=== PATIENT | female | born 1960 | race Two or more races ===

== ENCOUNTER 2020-01-23 15:20 | Outpatient (REF) | payer MEDICAID, SELFPAY ==
[2020-01-23 16:13] LABS: Hematocrit 41.2 % (37-47); Hemoglobin 13.2 g/dl (12.0-16.0); Mean Corpuscular Hemoglobin 27.4 pg (27.0-33.0); Mean Corpuscular Volume 85.5 fL (80-98); Mean Platelet Volume 9.7 fL (9.4-12.3); Platelet Count 177 X10*3/uL (160-400); Red Blood Count 4.82 X10*6/uL (4.20-5.50); Red Cell Distribution Width 13.6 % (11.0-16.0); White Blood Count 7.5 X10*3/uL (4.8-10.8)
[2020-01-23 16:40] LABS: Alanine Aminotransferase 13 U/L (0-31); Albumin Level 3.9 g/dL (3.5-5.0); Alkaline Phosphatase 153 U/L (39-117); Aspartate Amino Transferase 14 U/L (5-31); Bilirubin Direct < 0.2 mg/dL (0.0-0.5); Bilirubin Total 0.2 mg/dL (0.0-1.0); Blood Urea Nitrogen 11 mg/dL (9-16); Estimated Glomerular Filt Rate > 60; Lipase 33 U/L (8-78); Total Protein 7.3 g/dL (6.5-8.0)
== END 2020-01-23 15:21 | disposition home or self-care (01) ==
LOC: HO.LAB 15:20
PROVIDERS: PCP Internal Medicine; Visit Provider Internal Medicine Gastroenterology
DX: R10.32 Left lower quadrant pain (principal)
CPT/HCPCS: 36415; 80076; 82565; 83690; 84520; 85027

== ENCOUNTER → 2020-04-08 08:46 | Outpatient (BNVA) | payer MEDICAID, SELFPAY | PROVIDERS: PCP Internal Medicine; Visit Provider Internal Medicine | DX: J45.909 Unspecified asthma, uncomplicated (principal); G47.33 Obstructive sleep apnea (adult) (pediatric); Z99.89 Dependence on other enabling machines and devices | CPT/HCPCS: 99212 ==

== ENCOUNTER 2020-04-15 10:16 | Outpatient (REF) | payer MEDICAID, SELFPAY ==
[2020-04-15 11:56] LABS: Blood Urea Nitrogen 12 mg/dL (9-16); Estimated Glomerular Filt Rate > 60
== END 2020-04-15 10:17 | disposition home or self-care (01) ==
LOC: HO.LAB 10:16
PROVIDERS: PCP Internal Medicine; Visit Provider Internal Medicine Gastroenterology
DX: R10.32 Left lower quadrant pain (principal)
CPT/HCPCS: 36415; 82565; 84520

== ENCOUNTER 2020-04-20 08:08 | Outpatient (REF) | payer MEDICAID, SELFPAY ==
--- NOTE | 2020-04-20 08:11 | CT_ITS ---
EXAMINATION: CT ABDOMEN AND PELVIS WITH CONTRAST CLINICAL INFORMATION: Left lower quadrant pain. COMPARISON: CT abdomen pelvis contrast 02/21/2017. TECHNIQUE: Multidetector volumetric images were obtained from the superior aspect of the liver through the pubic symphysis following administration and reviewed mL of Omnipaque 350 intravenous contrast. Sagittal and coronal reformatted images were obtained on the technologist's workstation. Oral contrast: No. This CT examination was performed using dose optimization techniques as appropriate, variously including the following: *Automated exposure control *Adjustment of mA and/or kV according to patient size (this includes techniques or standardized protocols for targeted exams where dose is matched to indication/reason for exam; i.e. extremities or head) *Use of iterative reconstruction technique DLP: 747 mGy-cm. FINDINGS: LUNG BASES: There is platelike atelectasis right middle lobe and left lower lobe. Mild ground-glass opacity seen in the right lung base . LIVER, GALLBLADDER, AND BILIARY TREE: The liver is normal in size, shape, and attenuation. No focal hepatic lesion or biliary ductal dilatation is present. The gallbladder has been surgically removed. PANCREAS: Unremarkable. SPLEEN: Unremarkable. ADRENAL GLANDS: Unremarkable. KIDNEYS AND URETERS: The kidneys are normal in size, shape, and attenuation. No hydronephrosis, hydroureter, or calculi seen. No perinephric stranding. BLADDER: Unremarkable. GASTROINTESTINAL TRACT: There is scattered stool and gas seen throughout the colon without distention. The small bowel loops are normal caliber. Appendix is normal caliber. There is no free air or free fluid seen. ABDOMINAL WALL: Small umbilical hernia containing fat. Mild diastases of the rectus. LYMPH NODES: A small shotty lymph nodes in the retroperitoneum. The largest 9 mm lymph node upper abdomen image 24/3. VASCULAR: Mild atherosclerotic changes of abdominal aorta without aneurysmal dilatation. PELVIC VISCERA: The uterus is midline. No focal lesion seen. No free fluid or free air seen. OSSEOUS STRUCTURES: No lytic or sclerotic process seen. CT/CT abdomen pelvis w con IMPRESSION: No acute intra-abdominal process seen. Mild constipation. Small umbilical hernia with mild diastasis of the rectus, stable.
[2020-04-20] MEDS: iohexoL 350 MG/ML 100 ML INFUS..BTL IV (09:28)
== END 2020-04-20 08:09 | disposition home or self-care (01) ==
LOC: HO.CT 08:08
PROVIDERS: Visit Provider Internal Medicine Gastroenterology
DX: R10.32 Left lower quadrant pain (principal)
CPT/HCPCS: 74177; Q9967

== ENCOUNTER 2020-05-18 09:43 | Outpatient (REF) | payer MEDICAID, SELFPAY ==
--- NOTE | ~2020-05-18 | MM_ITS ---
EXAMINATION: MM SCREENING DIGITAL BREAST TOMOSYNTHESIS, BILATERAL CLINICAL INFORMATION: Screening. Asymptomatic. The lifetime risk of breast cancer based on the Tyrer-Cuzick Model is 12%. COMPARISON: Mammography: 02/12/2019, 01/29/2018, 01/05/2017 TECHNIQUE: Digital breast tomosynthesis is performed in both the craniocaudal and mediolateral oblique views along with computer-aided detection (CAD). Synthesized 2D images are generated from the tomosynthesis. Additional left MLO view is provided. FINDINGS: The breasts are heterogeneously dense, which may obscure small masses (ACR BI-RADS breast composition Category c). There are no significant masses, abnormal calcifications, or other abnormalities. Parenchymal pattern is similar to prior studies. No significant changes. MM/MM tomosynthesis screening BI IMPRESSION: No mammographic evidence of malignancy. ASSESSMENT: BI-RADS 1: Negative RECOMMENDATION: Routine annual mammography screening. This patient's information was entered into a reminder system with a target due date for their next mammogram.
== END 2020-05-18 09:44 | disposition home or self-care (01) ==
LOC: HO.MAMMO 09:43
PROVIDERS: PCP Internal Medicine; Visit Provider Internal Medicine
DX: Z12.31 Encounter for screening mammogram for malignant neoplasm of breast (principal)
CPT/HCPCS: 77063; 77067

== ENCOUNTER → 2020-07-28 09:18 | Outpatient (REF) | payer MEDICAID, SELFPAY ==
--- NOTE | 2020-07-28 09:30 | CA_ITS ---
Transthoracic Echocardiogram Patient (Last, First, Middle): Arianna Pineda, Gender: Female Date of : 1960 Age: 60 Procedure Date: 07/28/2020 Procedure Type: Transthoracic Echocardiogram Location: OP Height: 167.64 cm Weight: 105.24 kg BSA: 2.13 m2 Heart Rate: bpm BP: 110 / 76 mmHg Party Plan Sales Unit Advisor: PRIMITIVO Referring MD: Farzad Sandhu MD Production Control Expediter: David Fernandes MD Symptoms: R06.00 DYSPNEA Study Quality: Fair ECG Rhythm: Sinus Conclusions: - 1. Normal LV systolic function, diastolic function was not performed on this study Findings Procedure Information Contrast agent, definity, is being given per protocol without apparent complications. Left Ventricle Normal left ventricular size and systolic function. The visually estimated ejection fraction is between 60-65%. There is no evidence of regional wall motion abnormalities. Pericardium/Pleural There is no evidence of pericardial effusion. Prior Study Comparison No prior study available for comparison. Measurements 2D Systolic Function EF 4C: 67.10 >55% EF 2C: 61.50 >55% EF BiP: 64.80 >55% Tricuspid Valve TR Pk Tyron: 2.47 TR Pk Grad: 24.00 Updated in Other Vendor System with Status of Final David Fernandes MD electronically signed on 07/28/2020 4:07:11 PM with status of Final
== END ==
LOC: HO.CARD 09:18
PROVIDERS: PCP Internal Medicine; Visit Provider Internal Medicine Cardiovascular Disease
DX: R06.00 Dyspnea, unspecified (principal)
CPT/HCPCS: 93308; Q9957

== ENCOUNTER → 2020-08-18 09:36 | Outpatient (BNVA) | payer MEDICAID, SELFPAY | PROVIDERS: PCP Internal Medicine; Visit Provider Internal Medicine | DX: J45.909 Unspecified asthma, uncomplicated (principal); E66.01 Morbid (severe) obesity due to excess calories; G47.33 Obstructive sleep apnea (adult) (pediatric); Z99.89 Dependence on other enabling machines and devices | CPT/HCPCS: 99212 ==

== ENCOUNTER → 2020-08-26 07:44 | Outpatient (REF) | payer MEDICAID, SELFPAY ==
--- NOTE | ~2020-08-26 | NM_ITS ---
Myocardial perfusion study Indication: Chest pain to evaluate for myocardial ischemia Technique: The patient was brought in for a Lexiscan perfusion study on 08/26/2020. Patient performed low-level exercise and was injected 0.4 mg of Lexiscan intravenously. Within a minute of injection, 40 mCi of sestamibi was given intravenously. Images were obtained using the SPECT gamma camera interlaced with the gating device. Images were obtained in supine position. Resting perfusion study was performed on 08/27/2020. Patient was administered 40 mCi of sestamibi intravenously at rest. Images were then obtained in supine position. Images obtained with and without CT attenuation. Total DLP 153 mGy-cm. Images were processed with the software and compared side to side in short axis, horizontal long axis and vertical long axis views. Findings: The stress perfusion study showed non attenuated images show normal uptake of radiotracer in all segments of LV myocardium. Attenuation corrected images show mildly reduced uptake in the distal anterior and apex of the LV myocardium.. The gated study shows normal LV systolic function with visually estimated LVEF of greater than 60 %. LV cavity is normal in size. The gated study shows normal systolic wall thickening and contraction of segments. Resting study shows no change in perfusion pattern compared to stress perfusion study. Gating at rest reveals normal systolic wall motion with ejection fraction at 65%. The findings are consistent with normal myocardial perfusion. NM/NM parker perf SPECT rest & str Impression: 1. Myocardial perfusion imaging study shows normal myocardial perfusion 2. Gated LVEF is 65% 3. Transient ischemic dilatation not present EKG is nondiagnostic for ischemia
--- NOTE | 2020-08-26 08:00 | CA_ITS ---
Acquisition Time: 2020-08-26 08:33:28 Total Exercise Time: 00:02:00 Test Indications: CHEST PAIN Medications: METOPROLOL ASA LOSARTAN VERAPAMIL Protocol: LEXISCAN Max HR: 090 BPM 55% of Pred: 161 BPM Max BP: 124/070 mmHG Max Work Load: 1.0 METS Pharmacological stress test with Lexiscan injection, while sitting and kicking her legs, without anginal symptoms, without arrythmia, with normotensive response to injection, with nondiagnostic EKG for ischemia. In recovery she reported feeling spaced out and was treated with Aminophylline 75mg IVP to reverse Lexiscan with resolution of symptom. Nuclear images pending. Test reviewed with Dr Wolf. Referred By: Farzad Sandhu Overread By: ARLENE BUENO
== END ==
LOC: HO.CARD 07:44
PROVIDERS: Visit Provider Internal Medicine Cardiovascular Disease
DX: R07.9 Chest pain, unspecified (principal)
CPT/HCPCS: 78452; 93016; 93017; 93018; 99212; A9500; J0280; J2785

== ENCOUNTER 2021-01-12 09:05 | Day surgery (SDC) | payer MEDICAID, SELFPAY ==
[2021-01-06 11:11] VITALS: BMI 40.6
[2021-01-06 11:32] VITALS: BMI 40.6
--- NOTE | 2021-01-08 09:52 | P.CONAN_ITS ---
Documented by User: Jenny Vogt NP 01/15/21 14:24 HPI - Anesthesia Eval Consult details Narrative: 60yo F for Upper Endoscopy Stable at routine cardiac visit 10/2020 [facility] Active Problems Active Problems: All Active Problems (Updated 01/06/21 @ 11:32 by Kaylee Cordoba RN) History of total right knee replacement (TKR) (Acute) Asthma (Acute) Allergic rhinitis (Acute) JORGE on CPAP (Acute) Morbid obesity (Acute) Past Medical History Medical History (Updated 01/06/21 @ 11:32 by Kaylee Cordoba RN) Allergic rhinitis Arthritis Asthma CAD (coronary artery disease) COVID-19 vaccine series completed Elevated cholesterol GERD (gastroesophageal reflux disease) HTN (hypertension) Hypothyroid Morbid obesity Myocardial infarction JORGE on CPAP Venous insufficiency Surgical History Surgical History (Updated 01/06/21 @ 11:02 by Kaylee Cordoba RN) H/O colonoscopy History of esophagogastroduodenoscopy (EGD) History of total right knee replacement Hx of arthroscopic knee surgery Social History Social History (Updated 08/26/20 @ 12:41 by Jennifer Georges) Patient Tobacco Use Status: Current everyday Tobacco user Tobacco use type: Cigarette Cigarettes Per Day: 5 Use of substances other than those prescribed or required for medical reasons: No Have you been hit, kicked, punched, or otherwise hurt by someone within the past year? 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 Meds Allergies Allergy/AdvReac Type Severity Reaction Status Date / Time codeine [CODEINE] Allergy Intermediate LOWERED Verified 01/12/21 10:17 PLATELETS amlodipine Allergy Unknown Unknown Verified 01/12/21 10:17 atorvastatin Allergy Unknown Unknown Verified 01/12/21 10:17 clonidine Allergy Unknown Unknown Verified 01/12/21 10:17 Home Medications Medication Instructions Recorded Confirmed Last Taken Type albuterol sulfate 90 mcg/actuation 1 inh INHALATION QID 04/08/20 01/06/21 Unknown History aerosol inhaler (Proventil HFA) aspirin 81 mg tablet,delayed 81 mg PO DAILY 04/08/20 01/06/21 Unknown History release nfdpqphock-ebrnfhtixasew-ebhhcyxm 1 cap PO Q4-6H PRN 04/08/20 01/06/21 Unknown History 50 mg-325 mg-40 mg capsule cyclobenzaprine 10 mg tablet 10 mg PO TID 04/08/20 01/06/21 Unknown History docusate sodium 100 mg capsule 100 mg PO BID 04/08/20 01/06/21 Unknown History fluticasone propionate 50 1 spray INTRANASAL DAILY 04/08/20 01/06/21 Unknown History mcg/actuation nasal spray,suspension (Flonase Allergy Relief) furosemide 20 mg tablet 20 mg PO DAILY 04/08/20 01/06/21 Unknown History hydralazine 50 mg tablet 50 mg PO TID 04/08/20 01/06/21 01/12/21 History ipratropium 0.5 mg-albuterol 3 mg 3 ml INHALATION Q4-6H PRN 04/08/20 01/06/21 U nknown History (2.5 mg base)/3 mL nebulization soln levothyroxine 75 mcg tablet 75 mcg PO DAILY 04/08/20 01/06/21 01/12/21 History (Synthroid) losartan 100 mg tablet 100 mg PO DAILY 04/08/20 01/06/21 Unknown History metoprolol succinate 100 mg 100 mg PO DAILY 04/08/20 01/06/21 01/12/21 History tablet,extended release 24 hr montelukast 10 mg tablet 10 mg PO BEDTIME 04/08/20 01/06/21 Unknown History (Singulair) nitroglycerin 0.4 mg sublingual 0.4 mg SUBLINGUAL Q5M PRN 04/08/20 01/06/21 Unknown History tablet (Nitrostat) polyethylene glycol 3350 17 gram 17 g PO DAILY 04/08/20 01/06/21 Unknown History oral powder packet (Miralax) rosuvastatin 40 mg tablet (Crestor) 40 mg PO DAILY 04/08/20 01/06/21 Unknown History topiramate 50 mg tablet 50 mg PO BID 04/08/20 01/06/21 01/12/21 History verapamil 300 mg capsule 24hr 300 mg PO BEDTIME 04/08/20 01/06/21 01/12/[address],ext.release Exam Exam Date and Time: January 08, 2021 0952 Height,Weight and Vital Signs: Height 5 ft 6.5 in Weight 116.12 kg Narrative Narrative: NM parker perf SPECT rest & str 08/2020 Impression: ? 1.? Myocardial perfusion imaging study shows normal myocardial perfusion 2.? Gated LVEF is 65% 3. Transient ischemic dilatation not present ? EKG is nondiagnostic for ischemia ECHO 07/2020 Conclusions: - 1. Normal LV systolic function, diastolic function was not ? ? performed on this study? ?? Assessment and Plan Assessment Anesthesia Assessment: Chart Reviewed Documented by User: Partha Cloud MD 01/19/21 14:45 PMFSH Past Medical History Medical History (Updated 01/06/21 @ 11:32 by Kaylee Cordoba RN) Allergic rhinitis Arthritis Asthma CAD (coronary artery disease) COVID-19 vaccine series completed Elevated cholesterol GERD (gastroesophageal reflux disease) HTN (hypertension) Hypothyroid Morbid obesity Myocardial infarction JORGE on CPAP Venous insufficiency Family History Family history of problems with anesthesia: No Surgical History Surgical History (Updated 01/06/21 @ 11:02 by Kaylee Cordoba RN) H/O colonoscopy History of esophagogastroduodenoscopy (EGD) History of total right knee replacement Hx of arthroscopic knee surgery History of Problems with Anesthesia: No Social History Social History (Updated 08/26/20 @ 12:41 by Jennifer Georges) Patient Tobacco Use Status: Current everyday Tobacco user Tobacco use type: Cigarette Cigarettes Per Day: 5 Use of substances other than those prescribed or required for medical reasons: No Have you been hit, kicked, punched, or otherwise hurt by someone within the past year? 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 Meds Allergies Allergy/AdvReac Type Severity Reaction Status Date / Time codeine [CODEINE] Allergy Intermediate LOWERED Verified 01/12/21 10:17 PLATELETS amlodipine Allergy Unknown Unknown Verified 01/12/21 10:17 atorvastatin Allergy Unknown Unknown Verified 01/12/21 10:17 clonidine Allergy Unknown Unknown Verified 01/12/21 10:17 Home Medications Medication Instructions Recorded Confirmed Last Taken Type albuterol sulfate 90 mcg/actuation 1 inh INHALATION QID 04/08/20 01/06/21 Unknown History aerosol inhaler (Proventil HFA) aspirin 81 mg tablet,delayed 81 mg PO DAILY 04/08/20 01/06/21 Unknown History release rhvqozvshl-ovdreoefgdzpk-upjqvbrp 1 cap PO Q4-6H PRN 04/08/20 01/06/21 Unknown History 50 mg-325 mg-40 mg capsule cyclobenzaprine 10 mg tablet 10 mg PO TID 04/08/20 01/06/21 Unknown History docusate sodium 100 mg capsule 100 mg PO BID 04/08/20 01/06/21 Unknown History fluticasone propionate 50 1 spray INTRANASAL DAILY 04/08/20 01/06/21 Unknown History mcg/actuation nasal spray,suspension (Flonase Allergy Relief) furosemide 20 mg tablet 20 mg PO DAILY 04/08/20 01/06/21 Unknown History hydralazine 50 mg tablet 50 mg PO TID 04/08/20 01/06/21 01/12/21 History ipratropium 0.5 mg-albuterol 3 mg 3 ml INHALATION Q4-6H PRN 04/08/20 01/06/21 Unknown History (2.5 mg base)/3 mL nebulization soln levothyroxine 75 mcg tablet 75 mcg PO DAILY 04/08/20 01/06/21 01/12/21 History (Synthroid) losartan 100 mg tablet 100 mg PO DAILY 04/08/20 01/06/21 Unknown History metoprolol succinate 100 mg 100 mg PO DAILY 04/08/20 01/06/21 01/12/21 History tablet,extended release 24 hr montelukast 10 mg tablet 10 mg PO BEDTIME 04/08/20 01/06/21 Unknown History (Singulair) nitroglycerin 0.4 mg sublingual 0.4 mg SUBLINGUAL Q5M PRN 04/08/20 01/06/21 Unknown History tablet (Nitrostat) polyethylene glycol 3350 17 gram 17 g PO DAILY 04/08/20 01/06/21 Unknown History oral powder packet (Miralax) rosuvastatin 40 mg tablet (Crestor) 40 mg PO DAILY 04/08/20 01/06/21 Unknown History topiramate 50 mg tablet 50 mg PO BID 04/08/20 01/06/21 01/12/21 History verapamil 300 mg capsule 24hr 300 mg PO BEDTIME 04/08/20 01/06/21 01/12/[address],ext.release Assessment and Plan Assessment Anesthesia Assessment: Anesthesia Plan Discussed Final Anesthetic Review Family History of Problems with Anesthesia: No History of Problems with Anesthesia: No NPO: Yes ASA Class: III Final Preanesthetic Review: No Changes in Pt Med Stat, Meds/Allgs Chart Reviewed, Consent Obtained/Reviewed and Anes Risks/Benef Reviewed Patient Risk: High Procedure Risk: Low Anesthetic Plan Anesthetic Plan: MAC: Disposition: Standard PACU
[2021-01-12 10:00] VITALS: BP 144/88; PULSE 68; RESP 18; TEMP 36.2; O2SAT 96
[2021-01-12] MEDS: Lactated Ringers 1,000 ML 100 ML IVCONT (10:47)
--- NOTE | 2021-01-12 11:17 | MHC.SHP ---
Pre-Procedural Eval Section A Date of Service: 01/12/21 The patient is an INPATIENT: No Changes since office visit: No Cold of Flu in the past 2 weeks, No New Medical Problems, No Changes in Medication and No Patient answered all questions The History & Physical has been completed within 30 days and I have reviewed it.: Yes Section B Chief Complaint: reflux Allergies: Allergies Allergy/AdvReac Type Severity Reaction Status Date / Time codeine [CODEINE] Allergy Intermediate LOWERED Verified 01/12/21 10:17 PLATELETS amlodipine Allergy Unknown Unknown Verified 01/12/21 10:17 atorvastatin Allergy Unknown Unknown Verified 01/12/21 10:17 clonidine Allergy Unknown Unknown Verified 01/12/21 10:17 Plan I have reviewed the history and physical and performed a pertinent physical examination on my patient. No changes have occurred unless specified.
--- NOTE | 2021-01-12 11:37 | P.BOP_ITS ---
Brief Operative Note Date of Service: 01/12/21 Pre-op diagnosis: gerd, luq pain Post-op diagnosis: same (gastritis) Surgeon: Medardo Delgado Anesthesia: MAC Was an [employer] used for this Procedure?: No Estimated blood loss (mL): 5 Pathology: other (bxs antrum, egj, esopahgus 30cm) Condition: stable Disposition: PACU
[2021-01-12 11:43] VITALS: BP 123/87; PULSE 75; RESP 20; TEMP 36.2; O2SAT 100
[2021-01-12 11:58] VITALS: BP 116/86; PULSE 68; RESP 20; TEMP 36.2; O2SAT 97
--- NOTE | 2021-01-12 21:12 | OP_ITS ---
SURGEON: Medardo Delgado MD INDICATIONS: Gastroesophageal reflux disease and left upper quadrant pain. PREOPERATIVE DIAGNOSIS: POSTOPERATIVE DIAGNOSIS: PROCEDURE PERFORMED: Upper endoscopy with biopsy. ESTIMATED BLOOD LOSS: COMPLICATIONS: ANESTHESIA: ASSISTANTS: SPECIMENS: MEDICATIONS: Monitored anesthesia care. DESCRIPTION OF PROCEDURE: History and physical performed. The risks and benefits of the procedure were explained to the patient. Informed consent was obtained. The patient was placed in the left lateral decubitus position. The Olympus video gastroscope was introduced into the esophagus, stomach, and duodenum. Examination was performed and the scope was removed. She tolerated the procedure well and was taken to recovery area in stable condition. FINDINGS: Esophagus: The esophagus showed no esophagitis. Biopsies were obtained from the EG junction and from the mid esophagus at 30 cm. Stomach: Stomach showed mild gastritis with diffuse mild erythema without ulceration. Biopsies were obtained from the antrum to rule out H pylori. Duodenum: The bulb and second portion were normal. IMPRESSION: 1. Gastroesophageal reflux disease. 2. Left upper quadrant pain. RECOMMENDATION: Follow up the biopsy results. MD SUYAPA Gambino/MODL / [id number]
== END 2021-01-12 13:03 | disposition home or self-care (01) ==
PROVIDERS: Visit Provider Internal Medicine Gastroenterology
PROC: 0DJ08ZZ Inspection of Upper Intestinal Tract, Via Natural or Artificial Opening Endoscopic (ICD-10-PCS; CPT 43235; principal; 2021-01-12 11:00)
DX: K21.9 Gastro-esophageal reflux disease without esophagitis (principal); K29.60 Other gastritis without bleeding; R10.12 Left upper quadrant pain; K58.1 Irritable bowel syndrome with constipation; I10 Essential (primary) hypertension; G47.33 Obstructive sleep apnea (adult) (pediatric); J45.909 Unspecified asthma, uncomplicated; E66.9 Obesity, unspecified; Z68.41 Body mass index [BMI] 40.0-44.9, adult; Z79.51 Long term (current) use of inhaled steroids; Z79.82 Long term (current) use of aspirin; Z79.899 Other long term (current) drug therapy; F17.210 Nicotine dependence, cigarettes, uncomplicated
CPT/HCPCS: 43239; 88305; 88342

== ENCOUNTER → 2021-02-09 09:37 | Outpatient (BNVA) | payer MEDICAID, SELFPAY | PROVIDERS: PCP Internal Medicine; Visit Provider Internal Medicine | DX: G47.33 Obstructive sleep apnea (adult) (pediatric) (principal); J45.909 Unspecified asthma, uncomplicated; E66.01 Morbid (severe) obesity due to excess calories; Z99.89 Dependence on other enabling machines and devices | CPT/HCPCS: 99212 ==

== ENCOUNTER → 2021-06-09 08:54 | Outpatient (BNVA) | payer MEDICAID, SELFPAY | PROVIDERS: PCP Internal Medicine; Visit Provider Internal Medicine | DX: J45.909 Unspecified asthma, uncomplicated (principal); G47.33 Obstructive sleep apnea (adult) (pediatric); E66.01 Morbid (severe) obesity due to excess calories; Z99.89 Dependence on other enabling machines and devices; Z68.41 Body mass index [BMI] 40.0-44.9, adult | CPT/HCPCS: 99212 ==

== ENCOUNTER 2021-06-17 09:03 | Outpatient (REF) | payer MEDICAID, SELFPAY ==
--- NOTE | ~2021-06-17 | MM_ITS ---
EXAMINATION: MM SCREENING DIGITAL BREAST TOMOSYNTHESIS, BILATERAL CLINICAL INFORMATION: Screening. Asymptomatic. The lifetime risk of breast cancer based on the Tyrer-Cuzick Model is 6%. COMPARISON: Mammography: 05/18/2020, 02/12/2019, 01/29/2018, 01/05/2017, 06/27/2016, 06/20/2016, 06/18/2015 TECHNIQUE: Digital breast tomosynthesis is performed in both the craniocaudal and mediolateral oblique views along with computer-aided detection (CAD). Synthesized 2D images are generated from the tomosynthesis. FINDINGS: The breasts are heterogeneously dense, which may obscure small masses (ACR BI-RADS breast composition Category c). The right MLO view has a 5 mm nodule upper quadrant 13 cm from nipple with incompletely defined margins. This represents change from prior exams. Patient will be recalled for additional imaging. The remainder of the breasts show fibronodular parenchymal pattern similar to prior exams. There is no other interval mass or architectural abnormality or developing density. No abnormal calcifications. The skin contours are smooth. MM/MM tomosynthesis screening BI IMPRESSION: 1. Right: Small oval nodular asymmetry upper breast on MLO view. 2. Left: No mammographic evidence of malignancy. ASSESSMENT: BI-RADS 0: Incomplete - Need Additional Imaging Evaluation RECOMMENDATION: 1. Additional views of the right breast for margins (spot MLO the and ML). 2. Targeted ultrasound right breast. 3. Radiology department staff will contact the patient for additional imaging. This patient's information was entered into a reminder system with a target due date for their next mammogram.
== END 2021-06-17 09:04 | disposition home or self-care (01) ==
LOC: HO.MAMMO 09:03
PROVIDERS: PCP Internal Medicine; Visit Provider Internal Medicine
DX: Z12.31 Encounter for screening mammogram for malignant neoplasm of breast (principal)
CPT/HCPCS: 77063; 77067

== ENCOUNTER 2021-06-24 08:15 | Outpatient (REF) | payer MEDICAID, SELFPAY ==
--- NOTE | ~2021-06-24 | XR_ITS ---
EXAMINATION: XR KNEE AP STANDING XR KNEE, LEFT CLINICAL INFORMATION: Pain. COMPARISON: Prior radiographs, most recently 11/13/2018. TECHNIQUE: AP bilateral standing view of the knees was obtained. Four views of the left knee. FINDINGS: There is mild asymmetric narrowing of the lateral joint space compartment of the left knee, with peripheral osteophyte formation. The medial joint space compartment is well-maintained. There is some narrowing of the lateral aspect of the patellofemoral compartment. No fracture or dislocation is seen. There is a large left knee joint effusion. There are left femoral, popliteal and infrapopliteal atherosclerotic calcifications. There is an intact right knee total arthroplasty, without hardware failure or loosening. XR/XR knee standing BI IMPRESSION: 1. There is no fracture or dislocation seen bilaterally. 2. There is mild osteoarthritic change of the lateral and patellofemoral joint space compartments of the left knee. 3. There is a large left knee joint effusion. 4. There is an intact right knee total arthroplasty.
--- NOTE | ~2021-06-24 | XR_ITS ---
EXAMINATION: XR KNEE AP STANDING XR KNEE, LEFT CLINICAL INFORMATION: Pain. COMPARISON: Prior radiographs, most recently 11/13/2018. TECHNIQUE: AP bilateral standing view of the knees was obtained. Four views of the left knee. FINDINGS: There is mild asymmetric narrowing of the lateral joint space compartment of the left knee, with peripheral osteophyte formation. The medial joint space compartment is well-maintained. There is some narrowing of the lateral aspect of the patellofemoral compartment. No fracture or dislocation is seen. There is a large left knee joint effusion. There are left femoral, popliteal and infrapopliteal atherosclerotic calcifications. There is an intact right knee total arthroplasty, without hardware failure or loosening. XR/XR knee LT 2V IMPRESSION: 1. There is no fracture or dislocation seen bilaterally. 2. There is mild osteoarthritic change of the lateral and patellofemoral joint space compartments of the left knee. 3. There is a large left knee joint effusion. 4. There is an intact right knee total arthroplasty.
== END 2021-06-24 08:16 | disposition home or self-care (01) ==
LOC: HO.HOSX 08:15
PROVIDERS: Visit Provider Physician Assistant
DX: M17.12 Unilateral primary osteoarthritis, left knee (principal)
CPT/HCPCS: 20610; 73560; 73565; 99212; J1040

== ENCOUNTER 2021-07-08 10:28 | Outpatient (REF) | payer MEDICAID, SELFPAY ==
--- NOTE | ~2021-07-08 | MM_ITS ---
EXAMINATION: MM DIAGNOSTIC DIGITAL BREAST TOMOSYNTHESIS, RIGHT US DIAGNOSTIC ULTRASOUND BREAST, RIGHT CLINICAL INFORMATION: Recall from screening for 5 mm nodular asymmetry posterior upper right breast with ill-defined margins. COMPARISON: Mammography: 06/17/2021, 05/18/2020, 02/12/2019 TECHNIQUE: Digital breast tomosynthesis is performed. 2D images are generated from the tomosynthesis. The following views are obtained: Spot MLO x2, standard ML. Ultrasound right breast is targeted to the posterior upper outer breast. Grayscale imaging and color Doppler are performed without and with harmonics. FINDINGS: There are scattered areas of fibroglandular density (ACR BI-RADS breast composition Category b). The additional views confirm 0.5 cm nodular asymmetric density posterior 9:30 o'clock position approximately 14 cm from nipple. Margins are ill-defined, slightly irregular. No associated calcification. Ultrasound demonstrates an irregular nearly anechoic nodule posterior 9:30 o'clock position 15 cm from nipple measuring approximately 0.5 x 0.4 cm. There is some associated peripheral color flow. There is subtle surrounding hyperechogenicity. No increased or decreased through transmission of sound. No skin thickening or edema tracking in soft tissue planes. Results are discussed with the patient at time of visit, using an legal operations manager. The lesion is close to the skin fold near the bra under wire and the possibility of focal fat process is one consideration. Lesion otherwise remains indeterminate and ultrasound-guided core sampling is recommended. MM/MM tomosynthesis added views R IMPRESSION: Small irregular hypoechoic nodule 0.5 cm posterior 9:30 o'clock position. This represents change from prior studies. ASSESSMENT: BI-RADS 4: Suspicious RECOMMENDATION: Ultrasound-guided core sampling right breast lesion. This patient's information was entered into a reminder system with a target due date for their next mammogram.
== END 2021-07-08 10:29 | disposition home or self-care (01) ==
LOC: HO.MAMMO 10:28
PROVIDERS: PCP Internal Medicine; Visit Provider Internal Medicine
DX: N63.11 Unspecified lump in the right breast, upper outer quadrant (principal)
CPT/HCPCS: 76642; 77061; 77065; 99202

== ENCOUNTER 2021-07-09 09:47 | Outpatient (REF) | payer MEDICAID, SELFPAY ==
--- NOTE | ~2021-07-09 | US_ITS ---
PROCEDURE: US GUIDED BREAST BIOPSY, RIGHT CLINICAL INFORMATION: Irregularly marginated hypoechoic lesion with hyperechoic rim right breast 10:00 position 15 cm from the nipple. COMPARISON: July 08, 2021 and studies dating back to June 18, 2015 PROCEDURAL DETAILS: The details of the procedure, as well as the risks, benefits, and alternatives to the procedure were explained to the patient in detail and all of her questions were answered, after which written informed consent was obtained. Site and side were confirmed. Prior to the procedure, sonography revealed an irregularly marginated hypoechoic lesion with surrounding hyperechoic echogenicity 10:00 position right breast. A time-out was performed, the lesion intended for biopsy was targeted, and the skin of the right breast was then prepped and draped in the usual sterile fashion. Using sonographic guidance, sterile technique, and 1% lidocaine without epinephrine for local anesthesia, multiple automated core biopsies were obtained through the targeted area with a 14G spring loaded Achieve core biopsy device. There was real-time confirmation of appropriate needle passage. Sampling was documented. At the completion of tissue sampling, a single butterfly-shaped metallic clip was deposited at the biopsy site. There was no evidence of immediate complication. SPECIMEN: An appropriate sample was obtained. DIGITAL POST-PROCEDURE MAMMOGRAPHY: Breast density: Heterogeneous There are no new mammographic findings demonstrated. The postprocedure 2-view direct digital mammogram reveals satisfactory positioning of the biopsy clip. The patient tolerated the procedure well and, after assuring adequate hemostasis, was discharged in good condition after reviewing postbiopsy breast care instructions. Final pathology results are pending. US/US breast ndl core biopsy RT IMPRESSION: 1. No immediate complication from ultrasound-guided percutaneous biopsy right breast. 2. Ultrasound was used to localize and guide marker clip placement. 3. The 2-view direct digital postprocedure mammogram reveals satisfactory positioning of the biopsy clip. 4. Final pathology results are pending. A separate report with final recommendations will be issued once these results are made available.
--- NOTE | ~2021-07-09 | MM_ITS ---
EXAMINATION: MM DIAGNOSTIC DIGITAL MAMMOGRAPHY, RIGHT CLINICAL INFORMATION: Status post ultrasound-guided core biopsy right breast lesion deep upper outer aspect COMPARISON: Mammography: July 08, 2021 and studies dating back to June 18, 2015 TECHNIQUE: Digital mammography is performed in craniocaudal and mediolateral oblique views along with computer-aided detection (CAD). Exaggerated craniocaudal view also performed. FINDINGS: The breasts are heterogeneously dense, which may obscure small masses (ACR BI-RADS breast composition Category c). There are no significant masses, abnormal calcifications, or other abnormalities. The marking clip appears in good position. Results are discussed with the patient at time of visit. MM/MM diagnostic mammo unilat RT IMPRESSION: Marking clip in good position within the right breast status post ultrasound-guided core biopsy. ASSESSMENT: BI-RADS (Post Biopsy Clip Placement) RECOMMENDATION: Awaiting pathology result. Addendum to report will be made when pathology results are obtained.
[2021-07-09] MEDS: Lidocaine HCl 1 % 20 ML VIAL 9 ML SUBCUT (11:06)
== END 2021-07-09 09:48 | disposition home or self-care (01) ==
LOC: HO.MAMMO 09:47
PROVIDERS: Visit Provider Surgery
DX: N63.11 Unspecified lump in the right breast, upper outer quadrant (principal)
CPT/HCPCS: 19083; 77062; 77065; 88305; 88341; 88342

== ENCOUNTER → 2021-07-15 14:41 | Outpatient (BNVA) | payer MEDICAID, SELFPAY | PROVIDERS: PCP Internal Medicine; Referring Provider Internal Medicine; Visit Provider Surgery | DX: N63.10 Unspecified lump in the right breast, unspecified quadrant (principal); Z98.890 Other specified postprocedural states | CPT/HCPCS: 99212 ==

== ENCOUNTER → 2021-08-27 07:59 | Outpatient (BNVA) | payer MEDICAID, SELFPAY | PROVIDERS: PCP Internal Medicine; Visit Provider Nurse Practitioner Family | DX: M47.816 Spondylosis without myelopathy or radiculopathy, lumbar region (principal); R20.2 Paresthesia of skin | CPT/HCPCS: 99202 ==

== ENCOUNTER → 2021-09-22 13:54 | Outpatient (BNVA) | payer MEDICAID, SELFPAY | PROVIDERS: PCP Internal Medicine; Referring Provider Internal Medicine; Visit Provider Surgery | DX: D17.9 Benign lipomatous neoplasm, unspecified (principal) | CPT/HCPCS: 99212 ==

== ENCOUNTER 2021-10-29 08:13 | Outpatient (REF) | payer MEDICAID, SELFPAY ==
--- NOTE | ~2021-10-29 | XR_ITS ---
EXAMINATION: X-RAY RIGHT KNEE, 2 VIEWS X-RAY BILATERAL KNEES, STANDING VIEW CLINICAL INFORMATION: Pain. COMPARISON: Bilateral standing views 06/24/2021. TECHNIQUE: 2 views of the right knee. One view of both knees standing. FINDINGS: Again noted total right knee arthroplasty with patellar implant as well. No evidence of hardware fracture or compromise. No acute fractures or malalignment. Again noted moderate joint space with subcortical sclerosis of the lateral compartment of the left knee. No chondrocalcinosis. No right joint effusion. Scattered vascular calcifications. XR/XR knee standing BI IMPRESSION: Right total knee arthroplasty is intact. No acute fractures or malalignment. Moderate degenerative osteoarthritis of the lateral compartment of the left knee.
--- NOTE | ~2021-10-29 | XR_ITS ---
EXAMINATION: X-RAY RIGHT KNEE, 2 VIEWS X-RAY BILATERAL KNEES, STANDING VIEW CLINICAL INFORMATION: Pain. COMPARISON: Bilateral standing views 06/24/2021. TECHNIQUE: 2 views of the right knee. One view of both knees standing. FINDINGS: Again noted total right knee arthroplasty with patellar implant as well. No evidence of hardware fracture or compromise. No acute fractures or malalignment. Again noted moderate joint space with subcortical sclerosis of the lateral compartment of the left knee. No chondrocalcinosis. No right joint effusion. Scattered vascular calcifications. XR/XR knee RT 2V IMPRESSION: Right total knee arthroplasty is intact. No acute fractures or malalignment. Moderate degenerative osteoarthritis of the lateral compartment of the left knee.
== END 2021-10-29 08:14 | disposition home or self-care (01) ==
LOC: HO.HOSX 08:13
PROVIDERS: Visit Provider Physician Assistant
DX: M25.561 Pain in right knee (principal); M25.562 Pain in left knee; Z96.651 Presence of right artificial knee joint
CPT/HCPCS: 73560; 73565; 99212

== ENCOUNTER 2021-11-30 09:37 | Outpatient (REF) | payer MEDICAID, SELFPAY ==
--- NOTE | ~2021-11-30 | XR_ITS ---
EXAMINATION: XR FINGER, RIGHT INDEX CLINICAL INFORMATION: Wound COMPARISON: None TECHNIQUE: 3 views of the right second finger. FINDINGS: There is no evidence of acute fracture or dislocation of the right second finger. There is degenerative spurring seen involving the 2nd distal interphalangeal joint. No radiopaque foreign body identified. There is some degenerative spurring seen about the 1st carpometacarpal joint. XR/XR finger RT min 2V IMPRESSION: No acute fracture or dislocation of the right second finger. Degenerative change of the distal interphalangeal joint.
== END 2021-11-30 09:38 | disposition home or self-care (01) ==
LOC: HO.XRAY 09:37
PROVIDERS: Absent Provider Internal Medicine; PCP Internal Medicine; Visit Provider Emergency Medicine
DX: S61.300A Unspecified open wound of right index finger with damage to nail, initial encounter (principal); X58.XXXA Exposure to other specified factors, initial encounter; Y93.9 Activity, unspecified; Y92.9 Unspecified place or not applicable; Y99.9 Unspecified external cause status
CPT/HCPCS: 73140

== ENCOUNTER → 2021-12-22 09:03 | Outpatient (BNVA) | payer MEDICAID, SELFPAY | PROVIDERS: PCP Internal Medicine; Visit Provider Internal Medicine | DX: G47.33 Obstructive sleep apnea (adult) (pediatric) (principal); J45.909 Unspecified asthma, uncomplicated; E66.01 Morbid (severe) obesity due to excess calories; Z68.37 Body mass index [BMI] 37.0-37.9, adult; Z99.89 Dependence on other enabling machines and devices | CPT/HCPCS: 99212 ==

== ENCOUNTER → 2021-12-30 12:09 | Outpatient (BNVA) | payer MEDICAID, SELFPAY | PROVIDERS: PCP Internal Medicine; Visit Provider Orthopaedic Surgery | DX: R20.2 Paresthesia of skin (principal); M54.16 Radiculopathy, lumbar region; M47.816 Spondylosis without myelopathy or radiculopathy, lumbar region; M17.12 Unilateral primary osteoarthritis, left knee; Z96.651 Presence of right artificial knee joint | CPT/HCPCS: 99212 ==

== ENCOUNTER → 2022-01-04 12:50 | Outpatient (BNVA) | payer MEDICAID, SELFPAY | PROVIDERS: PCP Internal Medicine; Visit Provider Orthopaedic Surgery | DX: S61.200D Unspecified open wound of right index finger without damage to nail, subsequent encounter (principal); E11.9 Type 2 diabetes mellitus without complications | CPT/HCPCS: 99202 ==

== ENCOUNTER → 2022-03-11 09:04 | Outpatient (BNVA) | payer MEDICAID, SELFPAY | PROVIDERS: PCP Internal Medicine; Visit Provider Nurse Practitioner Family | DX: M47.26 Other spondylosis with radiculopathy, lumbar region (principal); M17.12 Unilateral primary osteoarthritis, left knee; M25.561 Pain in right knee; M25.562 Pain in left knee; Z96.651 Presence of right artificial knee joint | CPT/HCPCS: 99212 ==

== ENCOUNTER → 2022-04-13 09:25 | Outpatient (BNVA) | payer MEDICAID, SELFPAY | PROVIDERS: Visit Provider Internal Medicine | DX: G47.33 Obstructive sleep apnea (adult) (pediatric) (principal); U07.1 COVID-19; J45.909 Unspecified asthma, uncomplicated; E66.01 Morbid (severe) obesity due to excess calories; Z99.89 Dependence on other enabling machines and devices | CPT/HCPCS: 99212 ==

== ENCOUNTER → 2022-06-30 10:17 | Outpatient (BNVA) | payer MEDICAID, SELFPAY | PROVIDERS: Visit Provider Internal Medicine | DX: J45.909 Unspecified asthma, uncomplicated (principal); G47.33 Obstructive sleep apnea (adult) (pediatric); E66.9 Obesity, unspecified; Z99.89 Dependence on other enabling machines and devices; Z68.36 Body mass index [BMI] 36.0-36.9, adult | CPT/HCPCS: 99212 ==

== ENCOUNTER 2022-08-01 10:03 | Outpatient (REF) | payer MEDICAID, SELFPAY ==
--- NOTE | ~2022-08-01 | MM_ITS ---
EXAMINATION: MM SCREENING DIGITAL BREAST TOMOSYNTHESIS, BILATERAL CLINICAL INFORMATION: Screening. Asymptomatic. Benign right breast biopsy 07/09/2021 (reactive lymphoid tissue). The lifetime risk of breast cancer based on the Tyrer-Cuzick Model is 6%. COMPARISON: Multiple prior mammography exams dating back to 2013. TECHNIQUE: Digital breast tomosynthesis is performed in both the craniocaudal and mediolateral oblique views along with computer-aided detection (CAD). Synthesized 2D images are generated from the tomosynthesis. FINDINGS: The breasts are heterogeneously dense, which may obscure small masses (ACR BI-RADS breast composition Category c). Parenchymal pattern is similar to prior studies and there is no significant mass or developing density or architectural abnormality. There is a biopsy clip marker posterior upper outer right breast overlying a circumscribed smooth oval nodule. The bilateral axilla and skin contours are unremarkable. No abnormal calcifications on the right. There are scattered regional calcification upper outer left breast which appear overall slightly increased from prior studies. There may be superimposed digital processing artifact pseudocalcification. Patient will be recalled for additional imaging with magnification views. MM/MM tomosynthesis screening BI IMPRESSION: Left: -Probable increased regional calcifications upper outer left breast. Right: -No mammographic evidence of malignancy. ASSESSMENT: BI-RADS 0: Incomplete - Need Additional Imaging Evaluation RECOMMENDATION: 1. Additional views left breast (magnification CC, magnification ML). 2. Radiology department staff will contact the patient for additional imaging. This patient's information was entered into a reminder system with a target due date for their next mammogram.
== END 2022-08-01 10:04 | disposition home or self-care (01) ==
LOC: HO.MAMMO 10:03
PROVIDERS: PCP Internal Medicine; Visit Provider Internal Medicine
DX: Z12.31 Encounter for screening mammogram for malignant neoplasm of breast (principal)
CPT/HCPCS: 77063; 77067

== ENCOUNTER 2022-08-11 08:48 | Outpatient (REF) | payer MEDICAID, SELFPAY ==
--- NOTE | ~2022-08-11 | MM_ITS ---
EXAMINATION: MM DIAGNOSTIC DIGITAL MAMMOGRAPHY, LEFT CLINICAL INFORMATION: Recall from screening for scattered regional calcifications upper outer left breast which appear likely increased in number. Personal history benign right ultrasound-guided breast biopsy 2021 (reactive lymphoid tissue). COMPARISON: Mammography: 06/17/2021, 05/18/2020, and remote diagnostic magnification views left breast 12/13/2013. TECHNIQUE: Digital mammography is performed in the following views: Magnification left CC x2, magnification left ML x3 FINDINGS: The breasts are heterogeneously dense, which may obscure small masses (ACR BI-RADS breast composition Category c). The magnification views show scattered increased regional calcifications in the upper outer left breast. There is a focal group mid upper outer quadrant, favored for stereotactic sampling. In addition, fine calcifications are noted in the central left breast in a segmental distribution on magnification CC views, 1.7 cm posterior to anterior. These are not well visualized on the ML views, suspect mid breast. Suggest attempt at stereotactic sampling as well. Preliminary results are discussed with the patient at time of imaging, using an transmission supervisor. F the calcifications are found to be benign, then continued surveillance follow-up of the remaining calcifications would be recommended. Results and recommendation called to medical records technician (Irene) for Dr. Mirella Jara on 08/11/2022. MM/MM added views LT IMPRESSION: Increased calcifications left breast, recommend stereotactic sampling at 2 locations. ASSESSMENT: BI-RADS 4: Suspicious RECOMMENDATION: Stereotactic biopsy left breast, 2 sites. This patient's information was entered into a reminder system with a target due date for their next mammogram.
== END 2022-08-11 08:49 | disposition home or self-care (01) ==
LOC: HO.MAMMO 08:48
PROVIDERS: PCP Internal Medicine; Visit Provider Internal Medicine
DX: R92.1 Mammographic calcification found on diagnostic imaging of breast (principal)
CPT/HCPCS: 77065

== ENCOUNTER 2022-08-17 08:58 | Outpatient (REF) | payer MEDICAID, SELFPAY ==
--- NOTE | ~2022-08-17 | MM_ITS ---
EXAMINATION: STEREOTACTIC TOMOSYNTHESIS-GUIDED VACUUM-ASSISTED BREAST BIOPSY (TWO SITES), LEFT SPECIMEN RADIOGRAPHS (TWO SPECIMENS), LEFT POST PROCEDURE DIGITAL MAMMOGRAM, LEFT CLINICAL INFORMATION: Increased calcifications left breast, stereotactic sampling recommended at 2 locations. COMPARISON: Mammography 08/11/2022, 08/01/2022, 07/09/2021. TECHNIQUE/PROCEDURE: Informed consent was obtained from the patient after discussion of the benefits, risks, and alternatives to biopsy today. Patient appeared to understand. Gave opportunity for questions. Patient signed consent form. Hospital provided facilities planner assisted for the consent and throughout the procedure. Specimen A: BIOPSY TABLE: Hologic Affirm Prone Biopsy System. LESION: Fine calcifications mid central left breast. LOCAL ANESTHESIA: 6 mL carbonated 1% lidocaine; 10 mL 1% lidocaine with epinephrine. DERMATOTOMY: Single skin samara dermatotomy performed. NEEDLE: Suros Eviva 9-gauge vacuum assisted core biopsy device. APPROACH: Craniocaudal. TARGETING: Combination of digital breast tomosynthesis and stereotactic digital mammography used for targeting. CORES: 8. CLIP: Suros SecurMark T-shaped marker. SPECIMEN RADIOGRAPH (A): Specimen radiograph is taken in separate room using digital mammography. The index calcifications are in the excised cores. There are at least 25 calcifications in the cores. Specimen B: Fresh biopsy supplies are used for 2nd biopsy site. BIOPSY TABLE: Hologic Affirm Prone Biopsy System. LESION: Calcifications mid upper outer left breast. LOCAL ANESTHESIA: 6 mL carbonated 1% lidocaine; 10 mL 1% lidocaine with epinephrine. DERMATOTOMY: Single skin samara dermatotomy performed. NEEDLE: Suros Eviva 9-gauge vacuum assisted core biopsy device. APPROACH: Craniocaudal. TARGETING: Combination of digital breast tomosynthesis and stereotactic digital mammography used for targeting. CORES: 9. CLIP: Suros SecurMark Cylinder-shaped marker. SPECIMEN RADIOGRAPH (B): Specimen radiograph x 2 views are taken in separate room using digital mammography. The index calcifications are in the excised cores. There at least 10 calcifications in the cores. POST PROCEDURE UNILATERAL DIGITAL MAMMOGRAM: The post biopsy mammogram is performed in separate room using separate digital mammography equipment from the biopsy procedure. CC and ML views are obtained. The breasts are heterogeneously dense, which may obscure small masses (breast composition category: c). The clip markers are in expected position. The calcifications are decreased at both biopsy sites. No gross hematoma. The patient tolerated the procedure well. No immediate complications. Home instructions reviewed with the patient. Final pathology results are pending. MM/MM stereotactic biopsy ea add IMPRESSION: 1. Digital tomosynthesis-guided core biopsy left breast with clip placement (2 sites). 2. Specimen radiograph taken and post procedure mammogram. There is satisfactory positioning of the biopsy clips. 3. Final pathology results pending. An addendum report will be issued.
--- NOTE | ~2022-08-17 | MM_ITS ---
EXAMINATION: STEREOTACTIC TOMOSYNTHESIS-GUIDED VACUUM-ASSISTED BREAST BIOPSY (TWO SITES), LEFT SPECIMEN RADIOGRAPHS (TWO SPECIMENS), LEFT POST PROCEDURE DIGITAL MAMMOGRAM, LEFT CLINICAL INFORMATION: Increased calcifications left breast, stereotactic sampling recommended at 2 locations. COMPARISON: Mammography 08/11/2022, 08/01/2022, 07/09/2021. TECHNIQUE/PROCEDURE: Informed consent was obtained from the patient after discussion of the benefits, risks, and alternatives to biopsy today. Patient appeared to understand. Gave opportunity for questions. Patient signed consent form. Hospital provided weapons electrical engineering officer assisted for the consent and throughout the procedure. Specimen A: BIOPSY TABLE: Hologic Affirm Prone Biopsy System. LESION: Fine calcifications mid central left breast. LOCAL ANESTHESIA: 6 mL carbonated 1% lidocaine; 10 mL 1% lidocaine with epinephrine. DERMATOTOMY: Single skin samara dermatotomy performed. NEEDLE: Suros Eviva 9-gauge vacuum assisted core biopsy device. APPROACH: Craniocaudal. TARGETING: Combination of digital breast tomosynthesis and stereotactic digital mammography used for targeting. CORES: 8. CLIP: Suros SecurMark T-shaped marker. SPECIMEN RADIOGRAPH (A): Specimen radiograph is taken in separate room using digital mammography. The index calcifications are in the excised cores. There are at least 25 calcifications in the cores. Specimen B: Fresh biopsy supplies are used for 2nd biopsy site. BIOPSY TABLE: Hologic Affirm Prone Biopsy System. LESION: Calcifications mid upper outer left breast. LOCAL ANESTHESIA: 6 mL carbonated 1% lidocaine; 10 mL 1% lidocaine with epinephrine. DERMATOTOMY: Single skin samara dermatotomy performed. NEEDLE: Suros Eviva 9-gauge vacuum assisted core biopsy device. APPROACH: Craniocaudal. TARGETING: Combination of digital breast tomosynthesis and stereotactic digital mammography used for targeting. CORES: 9. CLIP: Suros SecurMark Cylinder-shaped marker. SPECIMEN RADIOGRAPH (B): Specimen radiograph x 2 views are taken in separate room using digital mammography. The index calcifications are in the excised cores. There at least 10 calcifications in the cores. POST PROCEDURE UNILATERAL DIGITAL MAMMOGRAM: The post biopsy mammogram is performed in separate room using separate digital mammography equipment from the biopsy procedure. CC and ML views are obtained. The breasts are heterogeneously dense, which may obscure small masses (breast composition category: c). The clip markers are in expected position. The calcifications are decreased at both biopsy sites. No gross hematoma. The patient tolerated the procedure well. No immediate complications. Home instructions reviewed with the patient. Final pathology results are pending. MM/MM stereotactic biopsy LT IMPRESSION: 1. Digital tomosynthesis-guided core biopsy left breast with clip placement (2 sites). 2. Specimen radiograph taken and post procedure mammogram. There is satisfactory positioning of the biopsy clips. 3. Final pathology results pending. An addendum report will be issued.
[2022-08-17] MEDS: Lidocaine HCl 1 % 20 ML VIAL 13 ML SUBCUT (11:08)
[2022-08-17] MEDS: Lidocaine HCl 1%/Epi 1:100,000 10 ML VIAL 20 ML SUBCUT (11:13)
[2022-08-17] MEDS: Sodium Bicarbonate 8.4% 50 MEQ/50 ML VIAL SUBCUT (11:14)
== END 2022-08-17 08:59 | disposition home or self-care (01) ==
LOC: HO.MAMMO 08:58
PROVIDERS: PCP Internal Medicine; Visit Provider Surgery
DX: R92.1 Mammographic calcification found on diagnostic imaging of breast (principal)
CPT/HCPCS: 19081; 19082; 88305; 99212; A4648

== ENCOUNTER → 2022-08-24 08:26 | Outpatient (BNVA) | payer MEDICAID, SELFPAY | PROVIDERS: PCP Internal Medicine; Visit Provider Surgery | DX: R92.1 Mammographic calcification found on diagnostic imaging of breast (principal); E66.9 Obesity, unspecified; Z68.36 Body mass index [BMI] 36.0-36.9, adult | CPT/HCPCS: 99212 ==

== ENCOUNTER → 2022-09-01 09:28 | Outpatient (BNVA) | payer MEDICAID, SELFPAY | PROVIDERS: PCP Internal Medicine; Visit Provider Internal Medicine | DX: G47.33 Obstructive sleep apnea (adult) (pediatric) (principal); J45.909 Unspecified asthma, uncomplicated; Z99.89 Dependence on other enabling machines and devices; Z68.36 Body mass index [BMI] 36.0-36.9, adult | CPT/HCPCS: 99212 ==

== ENCOUNTER 2023-01-05 08:52 | Outpatient (AMB) | payer MEDICAID, SELFPAY ==
--- NOTE | 2023-01-05 09:03 | MHC.OFFVIS ---
Intake Vital Signs 01/05/23 09:04 Height 5 ft 6.5 in Weight 229 lb BMI 36.4 BP 110/64 Blood Pressure Location Lt brachial Position Sitting Pulse 66 Pulse Source Pulse Oximeter Pulse Oximetry (%) 97 Oxygen Delivery Method Room Air Intake Visit Reasons: Sleep apnea Intake Note: pt is here for follow up of jorge and states she has a new cpap machine and it is okay, she did have an asthma flare up and did otc and is feeling better but she does get short of breath, she smokes when she is anxious Gyroscope Repairer Required: Yes Gyroscope Repairer Name: virginia Allergies codeine [CODEINE] Allergy (Intermediate, Verified 01/05/23 09:21) LOWERED PLATELETS amlodipine Allergy (Unknown, Verified 01/05/23 09:21) Unknown atorvastatin Allergy (Unknown, Verified 01/05/23 09:21) Unknown clonidine Allergy (Unknown, Verified 01/05/23 09:21) Unknown Medication List - Last Reconciled 01/05/23 by Lily Ivan MD acetaminophen ER (Mapap Arthritis Pain) 650 mg PO Q8H PRN albuterol sulfate 90 mcg/actuation (Ventolin HFA) 1 puff PO QID aspirin 81 mg PO DAILY dpfuvztvwg-ainvbkogrecvv-gihz 50-325-40 mg 1 cap PO Q4-6H PRN celecoxib 200 mg PO BID cyclobenzaprine 10 mg PO TID dicyclomine 20 mg PO docusate sodium 100 mg PO BID dulaglutide (Trulicity) mg subcut QWEEK duloxetine 60 mg PO QAM famotidine 40 mg PO fluticasone propionate 50 mcg/actuation (Flonase Allergy Relief) 1 spray intranasal DAILY fluticasone propionate 220 mcg/actuation (Flovent HFA) 1 puff inhalation BID furosemide 20 mg PO BID hydralazine 50 mg PO TID hydrocortisone 2.5% (Procto-Med HC) topical BID levothyroxine (Synthroid) 75 mcg PO DAILY losartan 100 mg PO DAILY metformin ER 1,000 mg PO metoprolol succinate ER 100 mg PO DAILY montelukast (Singulair) 10 mg PO BEDTIME nitroglycerin (Nitrostat) 0.4 mg sublingual Q5M PRN polyethylene glycol 3350 (Miralax) 17 grams PO DAILY rosuvastatin (Crestor) 40 mg PO DAILY topiramate 50 mg PO BID verapamil ER 300 mg PO BEDTIME Do you need a note to return to daycare/school/sports/work: No HPI Sleep apnea HPI Details Arianna is 62 years old female grossly obese with diagnosis of obstructive sleep apnea and bronchial asthma/allergic rhinitis. She is here for follow-up. She is using CPAP every night with full face mask, some times she does feel air leak during the night and tries to tighten the straps. . She denies daytime sleepiness Breathing holding stable with the intermittent flare ups of cough and wheezing. She has mild nasal congestion off and on. She does get short of breath when she walks around and this is mainly because of her obesity. Weight , no change. [facility] Medical History Breast calcification, left Obesity (BMI 30-39.9) COVID-19 Breast mass, right COVID-19 vaccine series completed Venous insufficiency Elevated cholesterol CAD (coronary artery disease) Myocardial infarction GERD (gastroesophageal reflux disease) Arthritis Hypothyroid HTN (hypertension) Asthma Allergic rhinitis JORGE on CPAP Morbid obesity Surgical History History of esophagogastroduodenoscopy (EGD) Hx of arthroscopic knee surgery History of total right knee replacement (10/19/17) H/O colonoscopy Family History Father Prostate cancer Social History Patient Tobacco Use Status: Current everyday Tobacco user Tobacco use type: Cigarette Cigarette Packs Per Day: 1 Cigarettes Per Day: 15 Current occupational status: disabled 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 Female Reproductive History Menstrual Age of Menarche: 10 Review of Systems Const All systems reviewed & are unremarkable except as noted in HPI and below Eyes Reports no additional complaints ENT Reports nasal congestion (Mild off and on) Card Denies chest pain, Denies irregular heart rhythm and Denies leg edema Resp Reports as per HPI (Has increased cough, nasal congestion and slightly more short of breath ) GI Reports no additional complaints Reports no additional complaints Musc Reports back pain and Reports arthralgias Skin/Breast Reports system reviewed and no additional complaints, except as documented Neuro Reports no additional complaints Psych Reports no additional complaints Endo Reports no additional complaints Physical Exam Vital Signs: Last Vital Signs Pulse 66 01/05/23 09:04 BP 110/64 01/05/23 09:04 Pulse Ox 97 01/05/23 09:04 Oxygen Delivery Method Room Air 01/05/23 09:04 BMI result Body Mass Index 36.4 Const Other: Grossly overweight with round face General: comfortable, no acute distress, alert and awake Orientation/consciousness: patient oriented x3 HEENT Head: Yes normal to inspection General nose exam: No nasal polyps present and No nasal discharge present Face and sinus: Yes sinuses nontender Mouth: oropharynx normal Throat: Yes posterior oropharynx normal Eyes General: appearance normal, both eyes and all related structures Neck Neck: Yes normal visual inspection, Yes no lymphadenopathy, Yes trachea midline and Yes no JVD Thyroid: Thyroid normal Chest Chest palpation & inspection: normal inspection of the chest, normal palpation of entire chest wall and no tenderness Resp Other: Percussion note not perceptible because of the thick chest wall. She does have good and equal breath sounds on both sides but decreased over the basilar areas. No wheezes rhonchi or crepitations are heard. Cardio Palpation: PMI not normal (Not palpable) Rate: regular rate Rhythm: regular rhythm Heart sounds: no gallops and no murmurs GI Palpation (GI): Soft to palpation, nontender, No hepatosplenomegaly present, no masses and Other GI palpation findings present (Abdomen is moderately obese and protuberant) Auscultation: normal bowel sounds Back/Spine/Pelvis Thoracic/Lumbar Spine: thoracic and lumbar spine normal to inspection and thoraco-lumbar ROM limited Skin General skin exam: no rashes or lesions noted Neuro General: patient oriented x3 and no focal motor deficits Cranial nerves: Yes CN's II-XII intact bilaterally Extrem General: Yes normal to inspection, No no joint enlargement (Both knees enlarged and slightly tender, especially the left knee), Yes no clubbing, cyanosis or edema and Yes no calf tenderness Psych Appearance: grossly normal and well kempt Speech and movement: Normal speech and movement present Results Reviewed Results Reviewed: Compliance report for the last 30 nights is reviewed, Usage / nights., 100% Average use per night 5 hours 47 minutes. Pressure is 13 cm. There is some air leak maximum 120 L/minute. Residual AHI 3.0 Assessment & Plan Assessment & Plan (1) Morbid obesity: Comment: CHRONIC PROBLEM , NOT EXPECTED TO CHANGE , SHE IS TRYING TO RESTRICT CALORIES INTAKE AND WALK DAILY . ENCOURAGED TO CONTINUE DOING THAT. Code(s): E66.01 - Morbid (severe) obesity due to excess calories (2) JORGE on CPAP: Comment: She is using the CPAP regularly and sleep quality much improved. Slight air leak, due to slipping of the mask and she is instructed to tighten the straps. Residual AHI 3.6. Code(s): G47.33 - Obstructive sleep apnea (adult) (pediatric); Z99.89 - Dependence on other enabling machines and devices (3) Allergic rhinitis: Comment: MILD , CONTROLLED . CONT . TO USE FLONASE 2 SPRAYS IN EACH NOSTRIL DAILY MONTELUKAST 10 MG DAILY Code(s): J30.9 - Allergic rhinitis, unspecified (4) Asthma: Comment: WELL CONTROLLED , NO ACUTE EXCERBATIONS . TX : CONT. FLOVENT-220 2 PUFFS BID AND ALBUTEROL MDI 2 PUFFS Q 6 HRS PRN . [id number] mg daily [place] UdS q 6 hrs only PRN . Code(s): J45.909 - Unspecified asthma, uncomplicated Coding Level of Care Code Est Pt Level 3 (11680) Diagnoses Morbid obesity E66.01 JORGE on CPAP G47.33; Z99.89 Allergic rhinitis J30.9 Asthma J45.909
[2023-01-05 09:04] VITALS: BP 110/64; PULSE 66; O2SAT 97; BMI 36.4
== END 2023-01-05 09:22 | disposition home or self-care (01) ==
PROVIDERS: PCP Internal Medicine; Visit Provider Internal Medicine
DX: E66.01 Morbid (severe) obesity due to excess calories (principal); G47.33 Obstructive sleep apnea (adult) (pediatric); Z99.89 Dependence on other enabling machines and devices; J30.9 Allergic rhinitis, unspecified; J45.909 Unspecified asthma, uncomplicated
CPT/HCPCS: 99213

== ENCOUNTER → 2023-01-05 08:52 | Outpatient (BNVA) | payer MEDICAID, SELFPAY | PROVIDERS: PCP Internal Medicine; Visit Provider Internal Medicine | DX: J45.909 Unspecified asthma, uncomplicated (principal); G47.33 Obstructive sleep apnea (adult) (pediatric); E66.01 Morbid (severe) obesity due to excess calories; F17.210 Nicotine dependence, cigarettes, uncomplicated; Z68.36 Body mass index [BMI] 36.0-36.9, adult; Z99.89 Dependence on other enabling machines and devices | CPT/HCPCS: 99212 ==

== ENCOUNTER → 2023-04-12 09:00 | Outpatient (BNV) | payer MEDICAID, SELFPAY | PROVIDERS: PCP Internal Medicine; Visit Provider Radiology Diagnostic Radiology | DX: R92.0 Mammographic microcalcification found on diagnostic imaging of breast (principal) | CPT/HCPCS: 77061; 77065 ==

== ENCOUNTER 2023-04-12 09:13 | Outpatient (REF) | payer MEDICAID, SELFPAY ==
--- NOTE | ~2023-04-12 | MM_ITS ---
EXAMINATION: MM DIAGNOSTIC DIGITAL BREAST TOMOSYNTHESIS, LEFT CLINICAL INFORMATION: Short interval follow-up left breast for 2 site stereotactic biopsy, both sites benign with no atypia or malignancy. Establishing new baseline. COMPARISON: Mammography: 2 site left stereotactic biopsy 08/22/2022, mammography 08/11/2022, 08/01/2022, 07/08/2021, 06/17/2021, 05/18/2020 and dating back to 2017. TECHNIQUE: Digital left breast tomosynthesis is performed in both the craniocaudal and mediolateral oblique views along with computer-aided detection (CAD). Synthesized 2D images are generated from the tomosynthesis. In addition, spot magnification 2-D views were performed of the left breast in the CC x2, and ML x1. FINDINGS: The breasts are heterogeneously dense, which may obscure small masses (ACR BI-RADS breast composition Category c). There are 2 post benign biopsy clips within the LEFT breast in the outer and upper location, in the regions of previously seen grouped calcifications. There is an additional persistent group of microcalcifications anterior to the most medial biopsy clip, fine and rounded calcifications, similar to the biopsied group just posterior. In addition, there are 2 persisting groups on the CC magnification view in between the 2 biopsy marker clips and slightly posterior, stable from prior exams without change. There is also an anterolateral group anterior to the far lateral biopsy clip, also unchanged. There are scattered punctate calcifications throughout the left heterogeneously dense breast stroma consistent with entity such as sclerosing adenosis. No new or developing suspicious calcifications identified. There are no suspicious masses or areas of architectural distortion in the left breast. The parenchymal pattern is stable from prior exams. MM/MM tomosynthesis diagnostic LT IMPRESSION: No findings suspicious for malignancy left breast. New baseline established status post 2 site benign stereotactic biopsy. Several stable and unchanged groups of predominantly fine punctate calcifications persist, as well as scattered calcifications within the heterogeneously dense parenchyma, most likely reflecting entities such as sclerosing adenosis, benign. Recommend the patient return to routine annual screening mammography to include both breasts in September 2023. ASSESSMENT: BI-RADS BI-RADS 2 - Benign Findings RECOMMENDATION: 1 year F/U Results were provided to the patient at time of visit by the technologist. This patient's information was entered into a reminder system with a target due date for their next mammogram.
== END 2023-04-12 09:14 | disposition home or self-care (01) ==
LOC: HO.MAMMO 09:13
PROVIDERS: PCP Internal Medicine; Visit Provider Surgery
DX: R92.1 Mammographic calcification found on diagnostic imaging of breast (principal)
CPT/HCPCS: 77061; 77065

== ENCOUNTER 2023-04-13 09:51 | Outpatient (AMB) | payer MEDICAID, SELFPAY ==
[2023-04-13 09:59] VITALS: BP 120/70; PULSE 79; O2SAT 96; BMI 37.0
--- NOTE | 2023-04-13 09:59 | MHC.OFFVIS ---
Intake Vital Signs 04/13/23 09:59 Height 5 ft 6.5 in Weight 233 lb BMI 37.0 BP 120/70 Blood Pressure Location Lt brachial Position Sitting Pulse 79 Pulse Source Pulse Oximeter Pulse Oximetry (%) 96 Oxygen Delivery Method Room Air Intake Visit Reasons: ER follow up Intake Note: pt is here for follow up and she is having some pain in the upper back area, coughing that sticks and keeps coughing, she went to [facility] ER same day, antibiotic and otc cough medication. pt is on Flovent and will need a replacment sent in. coughing spells that prevent her from breathing at least 3-4 times a day. Security Architect Required: Yes Security Architect Name: madelin Allergies codeine [CODEINE] Allergy (Intermediate, Verified 04/13/23 10:27) LOWERED PLATELETS amlodipine Allergy (Unknown, Verified 04/13/23 10:27) Unknown atorvastatin Allergy (Unknown, Verified 04/13/23 10:27) Unknown clonidine Allergy (Unknown, Verified 04/13/23 10:27) Unknown Medication List - Last Reconciled 04/13/23 by Lily Ivan MD acetaminophen ER (Mapap Arthritis Pain) 650 mg PO Q8H PRN albuterol sulfate 90 mcg/actuation (Ventolin HFA) 1 puff PO QID aspirin 81 mg PO DAILY xudantksxs-zuxvhqogtbcqv-oeda 50-325-40 mg 1 cap PO Q4-6H PRN celecoxib 200 mg PO BID cyclobenzaprine 10 mg PO TID dicyclomine 20 mg PO docusate sodium 100 mg PO BID dulaglutide (Trulicity) mg subcut QWEEK duloxetine 60 mg PO QAM famotidine 40 mg PO fluticasone propionate 50 mcg/actuation (Flonase Allergy Relief) 1 spray intranasal DAILY fluticasone propionate 220 mcg/actuation (Flovent HFA) 1 puff inhalation BID furosemide 20 mg PO BID hydralazine 50 mg PO TID hydrocortisone 2.5% (Procto-Med HC) topical BID levothyroxine (Synthroid) 75 mcg PO DAILY losartan 100 mg PO DAILY metformin ER 1,000 mg PO metoprolol succinate ER 100 mg PO DAILY montelukast (Singulair) 10 mg PO BEDTIME nitroglycerin (Nitrostat) 0.4 mg sublingual Q5M PRN polyethylene glycol 3350 (Miralax) 17 grams PO DAILY rosuvastatin (Crestor) 40 mg PO DAILY topiramate 50 mg PO BID verapamil ER 300 mg PO BEDTIME Do you need a note to return to daycare/school/sports/work: No HPI ER follow up HPI Details 63 YEARS OLD FEMALE, IS HERE FOR A SPECIAL VISIT. SHE SHE WAS SEEN IN [facility] EM[facility] RO[facility] ABOUT A WEEK AGO FOR COUGH, HAD A COURSE OF ANTIBIOTIC. THE COUGH HAS DEFINITELY IMPROVED BUT SHE STILL CONTINUES TO GET EPISODES OF COUGH 2 OR 3 TIMES A DAY. IT IS DIFFICULT FOR HER TO EXPECTORATES. SHE COMPLAINS OF SOME BACK DISCOMFORT DUE TO ONGOING COUGH. AT THE SAME TIME SHE CONTINUES TO SMOKE AND IS SMOKING BOUTS 15 CIGARETTES A DAY. SHE HAS HAD NO FEVER OR CHILLS, SHE HAS BEEN USING FLOVENT 220 2 PUFFS B.I.D. BUT NOW IT IS NOT AVAILABLE. SHE CONTINUES TO USE FLONASE FOR HER CHRONIC NASAL CONGESTION. SHE IS ALSO USING CPAP REGULARLY EVERY NIGHT. [facility] Medical History (Updated 04/13/23 @ 10:36 by Lily Ivan MD) Cough Breast calcification, left Obesity (BMI 30-39.9) COVID-19 Breast mass, right COVID-19 vaccine series completed Venous insufficiency Elevated cholesterol CAD (coronary artery disease) Myocardial infarction GERD (gastroesophageal reflux disease) Arthritis Hypothyroid HTN (hypertension) Asthma Allergic rhinitis JORGE on CPAP Morbid obesity Surgical History History of esophagogastroduodenoscopy (EGD) Hx of arthroscopic knee surgery History of total right knee replacement (10/19/17) H/O colonoscopy Family History Father Prostate cancer Social History Patient Tobacco Use Status: Current everyday Tobacco user Tobacco use type: Cigarette Cigarette Packs Per Day: 1 Cigarettes Per Day: 15 Current occupational status: disabled 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 Female Reproductive History Menstrual Age of Menarche: 10 Review of Systems Const All systems reviewed & are unremarkable except as noted in HPI and below Eyes Reports no additional complaints ENT Reports nasal congestion (Mild off and on) Card Denies chest pain, Denies irregular heart rhythm and Denies leg edema Resp Reports as per HPI (Has increased cough, nasal congestion and slightly more short of breath ) GI Reports no additional complaints Reports no additional complaints Musc Reports back pain and Reports arthralgias Skin/Breast Reports system reviewed and no additional complaints, except as documented Neuro Reports no additional complaints Psych Reports no additional complaints Endo Reports no additional complaints Physical Exam Vital Signs: Last Vital Signs Pulse 79 04/13/23 09:59 BP 120/70 04/13/23 09:59 Pulse Ox 96 04/13/23 09:59 Oxygen Delivery Method Room Air 04/13/23 09:59 BMI result Body Mass Index 37.0 Const Other: Grossly overweight with round face General: comfortable, no acute distress, alert and awake Orientation/consciousness: patient oriented x3 HEENT Head: Yes normal to inspection General nose exam: No nasal polyps present and No nasal discharge present Face and sinus: Yes sinuses nontender Mouth: oropharynx normal Throat: Yes posterior oropharynx normal Eyes General: appearance normal, both eyes and all related structures Neck Neck: Yes normal visual inspection, Yes no lymphadenopathy, Yes trachea midline and Yes no JVD Thyroid: Thyroid normal Chest Chest palpation & inspection: normal inspection of the chest, normal palpation of entire chest wall and no tenderness Resp Other: Percussion note not perceptible because of the thick chest wall. She does have good and equal breath sounds on both sides but decreased over the basilar areas. No wheezes rhonchi or crepitations are heard. Cardio Palpation: PMI not normal (Not palpable) Rate: regular rate Rhythm: regular rhythm Heart sounds: no gallops and no murmurs GI Palpation (GI): Soft to palpation, nontender, No hepatosplenomegaly present, no masses and Other GI palpation findings present (Abdomen is moderately obese and protuberant) Auscultation: normal bowel sounds Back/Spine/Pelvis Thoracic/Lumbar Spine: thoracic and lumbar spine normal to inspection and thoraco-lumbar ROM limited Skin General skin exam: no rashes or lesions noted Neuro General: patient oriented x3 and no focal motor deficits Cranial nerves: Yes CN's II-XII intact bilaterally Extrem General: Yes normal to inspection, No no joint enlargement (Both knees enlarged and slightly tender, especially the left knee), Yes no clubbing, cyanosis or edema and Yes no calf tenderness Psych Appearance: grossly normal and well kempt Speech and movement: Normal speech and movement present Assessment & Plan Assessment & Plan (1) Morbid obesity: Comment: CHRONIC PROBLEM , NOT EXPECTED TO CHANGE , SHE IS TRYING TO RESTRICT CALORIES INTAKE AND WALK DAILY . ENCOURAGED TO CONTINUE DOING THAT. Code(s): E66.01 - Morbid (severe) obesity due to excess calories Plan: ABOVE (2) JORGE on CPAP: Comment: She is using the CPAP regularly and sleep quality much improved. Code(s): G47.33 - Obstructive sleep apnea (adult) (pediatric); Z99.89 - Dependence on other enabling machines and devices Plan: ENCOURAGED TO CONTINUE USING THE CPAP EVERY NIGHT. (3) Allergic rhinitis: Comment: MILD , CONTROLLED . Code(s): J30.9 - Allergic rhinitis, unspecified Plan: CONT . TO USE FLONASE 2 SPRAYS IN EACH NOSTRIL DAILY MONTELUKAST 10 MG DAILY (4) Asthma: Comment: SEEMS TO BE WELL CONTROLLED AT THIS TIME. FLOVENT WOULD NOT BE AVAILABLE, IT IS BEING CHANGED TO ADVAIR 250-50. Code(s): J45.909 - Unspecified asthma, uncomplicated Plan: TX : ADVAIR HFA 115/21 2 PUFFS BID PRESCRIBED AND ALBUTEROL MDI 2 PUFFS Q 6 HRS PRN . [id number] mg daily T Duo [place] UdS q 6 hrs only PRN . (5) Cough: Comment: FREQUENT BOUTS OF COUGH, HER RELATED TO HER DIAGNOSIS OF BRONCHIAL ASTHMA AND ONGOING SMOKING. Code(s): R05.9 - Cough, unspecified Plan: I EXPLAINED TO HER THAT COUGH WILL BE CONTINUING LONG SHE SMOKES. SHE DEFINITELY NEEDS TO QUIT SMOKING COMPLETELY. SHE SHOULD RESTART USING THE NICOTINE PATCH 14 MG PATCH DAILY. USE OTC COUGH MEDICINE Q 6 HOURS P.R.N. Medications: New fluticasone propion-salmeterol 115-21 mcg/actuation (Advair HFA) 2 puffs inhalation BID 30 days 12 grams 4RF ASTHMA/COUGH Coding Level of Care Code Est Pt Level 4 (17682) Diagnoses Morbid obesity E66.01 JORGE on CPAP G47.33; Z99.89 Allergic rhinitis J30.9 Asthma J45.909 Cough R05.9
== END 2023-04-13 10:29 | disposition home or self-care (01) ==
PROVIDERS: PCP Internal Medicine; Referring Provider Internal Medicine; Visit Provider Internal Medicine
DX: E66.01 Morbid (severe) obesity due to excess calories (principal); G47.33 Obstructive sleep apnea (adult) (pediatric); Z99.89 Dependence on other enabling machines and devices; J30.9 Allergic rhinitis, unspecified; J45.909 Unspecified asthma, uncomplicated; R05.9 Cough, unspecified
CPT/HCPCS: 99214

== ENCOUNTER → 2023-04-13 09:51 | Outpatient (BNVA) | payer MEDICAID, SELFPAY | PROVIDERS: PCP Internal Medicine; Visit Provider Internal Medicine | DX: R05.9 Cough, unspecified (principal); G47.33 Obstructive sleep apnea (adult) (pediatric); J45.909 Unspecified asthma, uncomplicated; E66.01 Morbid (severe) obesity due to excess calories; Z99.89 Dependence on other enabling machines and devices; Z68.37 Body mass index [BMI] 37.0-37.9, adult | CPT/HCPCS: 99212 ==

== ENCOUNTER 2023-05-31 09:00 | Outpatient (AMB) | payer MEDICAID, SELFPAY ==
--- NOTE | 2023-05-31 09:10 | MHC.OFFVIS ---
Intake Vital Signs 05/31/23 09:11 Height 5 ft 6.5 in Weight 234 lb BMI 37.2 BP 120/64 Blood Pressure Location Lt brachial Position Sitting Pulse 72 Pulse Source Pulse Oximeter Pulse Oximetry (%) 96 Oxygen Delivery Method Room Air Intake Visit Reasons: Sleep apnea Intake Note: pt is here for follow up of JORGE, and is feeling regular and using cpap. Forestry Support Specialist Required: Yes Forestry Support Specialist Name: franklyn Allergies codeine [CODEINE] Allergy (Intermediate, Verified 05/31/23 09:26) LOWERED PLATELETS amlodipine Allergy (Unknown, Verified 05/31/23 09:26) Unknown atorvastatin Allergy (Unknown, Verified 05/31/23 09:26) Unknown clonidine Allergy (Unknown, Verified 05/31/23 09:26) Unknown Medication List - Last Reconciled 05/31/23 by Lily Ivan MD acetaminophen ER (Mapap Arthritis Pain) 650 mg PO Q8H PRN albuterol sulfate 90 mcg/actuation (Ventolin HFA) 1 puff PO QID aspirin 81 mg PO DAILY lnjtilpvkn-nqflkcmpjcbno-kjtl 50-325-40 mg 1 cap PO Q4-6H PRN celecoxib 200 mg PO BID cyclobenzaprine 10 mg PO TID dicyclomine 20 mg PO docusate sodium 100 mg PO BID dulaglutide (Trulicity) mg subcut QWEEK duloxetine 60 mg PO QAM famotidine 40 mg PO fluticasone propion-salmeterol 115-21 mcg/actuation (Advair HFA) 2 puffs inhalation BID 30 days fluticasone propionate 50 mcg/actuation (Flonase Allergy Relief) 1 spray intranasal DAILY fluticasone propionate 220 mcg/actuation (Flovent HFA) 1 puff inhalation BID furosemide 20 mg PO BID hydralazine 50 mg PO TID hydrocortisone 2.5% (Procto-Med HC) topical BID levothyroxine (Synthroid) 75 mcg PO DAILY losartan 100 mg PO DAILY metformin ER 1,000 mg PO metoprolol succinate ER 100 mg PO DAILY montelukast (Singulair) 10 mg PO BEDTIME nitroglycerin (Nitrostat) 0.4 mg sublingual Q5M PRN polyethylene glycol 3350 (Miralax) 17 grams PO DAILY rosuvastatin (Crestor) 40 mg PO DAILY topiramate 50 mg PO BID verapamil ER 300 mg PO BEDTIME Do you need a note to return to daycare/school/sports/work: No HPI Sleep apnea HPI Details Arianna is here today for her regular follow-up. She continues to have intermittent cough sometime with choking feeling, until mucus comes up. Still smoking about 15 cigarettes a day. Overall breathing has been okay. She uses CPAP very regularly and sleeps well. There has been no decline in her weight. Her main complaint is ongoing chronic back pain, which gets worse after she coughs. [facility] Medical History (Updated 05/31/23 @ 09:33 by Lily Iavn MD) Smoking Cough Breast calcification, left Obesity (BMI 30-39.9) COVID-19 Breast mass, right COVID-19 vaccine series completed Venous insufficiency Elevated cholesterol CAD (coronary artery disease) Myocardial infarction GERD (gastroesophageal reflux disease) Arthritis Hypothyroid HTN (hypertension) Asthma Allergic rhinitis JORGE on CPAP Morbid obesity Surgical History History of esophagogastroduodenoscopy (EGD) Hx of arthroscopic knee surgery History of total right knee replacement (10/19/17) H/O colonoscopy Family History Father Prostate cancer Social History Patient Tobacco Use Status: Current everyday Tobacco user Tobacco use type: Cigarette Cigarette Packs Per Day: 1 Cigarettes Per Day: 15 Current occupational status: disabled 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 Female Reproductive History Menstrual Age of Menarche: 10 Review of Systems Const All systems reviewed & are unremarkable except as noted in HPI and below Eyes Reports no additional complaints ENT Reports nasal congestion (Mild off and on) Card Denies chest pain, Denies irregular heart rhythm and Denies leg edema Resp Reports as per HPI (Has increased cough, nasal congestion and slightly more short of breath ) GI Reports no additional complaints Reports no additional complaints Musc Reports back pain and Reports arthralgias Skin/Breast Reports system reviewed and no additional complaints, except as documented Neuro Reports no additional complaints Psych Reports no additional complaints Endo Reports no additional complaints Physical Exam Vital Signs: Last Vital Signs Pulse 72 05/31/23 09:11 BP 120/64 05/31/23 09:11 Pulse Ox 96 02/28/24 09:11 Oxygen Delivery Method Room Air 05/31/23 09:11 BMI result Body Mass Index 37.2 Const Other: Grossly overweight with round face General: comfortable, no acute distress, alert and awake Orientation/consciousness: patient oriented x3 HEENT Head: Yes normal to inspection General nose exam: No nasal polyps present and No nasal discharge present Face and sinus: Yes sinuses nontender Mouth: oropharynx normal Throat: Yes posterior oropharynx normal Eyes General: appearance normal, both eyes and all related structures Neck Neck: Yes normal visual inspection, Yes no lymphadenopathy, Yes trachea midline and Yes no JVD Thyroid: Thyroid normal Chest Chest palpation & inspection: normal inspection of the chest, normal palpation of entire chest wall and no tenderness Resp Other: Percussion note not perceptible because of the thick chest wall. She does have good and equal breath sounds on both sides but decreased over the basilar areas. No wheezes rhonchi or crepitations are heard. Cardio Palpation: PMI not normal (Not palpable) Rate: regular rate Rhythm: regular rhythm Heart sounds: no gallops and no murmurs GI Palpation (GI): Soft to palpation, nontender, No hepatosplenomegaly present, no masses and Other GI palpation findings present (Abdomen is moderately obese and protuberant) Auscultation: normal bowel sounds Back/Spine/Pelvis Thoracic/Lumbar Spine: thoracic and lumbar spine normal to inspection and thoraco-lumbar ROM limited Skin General skin exam: no rashes or lesions noted Neuro General: patient oriented x3 and no focal motor deficits Cranial nerves: Yes CN's II-XII intact bilaterally Extrem General: Yes normal to inspection, No no joint enlargement (Both knees enlarged and slightly tender, especially the left knee), Yes no clubbing, cyanosis or edema and Yes no calf tenderness Psych Appearance: grossly normal and well kempt Speech and movement: Normal speech and movement present Results Reviewed Results Reviewed: Compliance report for the last 30 nights is reviewed. She has used 30/30 nights,. 100% Average use per night. 7 hours 15 minutes Pressure 13 cm. There is moderate degree of air leak. Residual AHI only 1.7 Assessment & Plan Assessment & Plan (1) Morbid obesity: Comment: CHRONIC PROBLEM , NOT EXPECTED TO CHANGE , SHE IS TRYING TO RESTRICT CALORIES INTAKE AND WALK DAILY . ENCOURAGED TO CONTINUE DOING THAT. Code(s): E66.01 - Morbid (severe) obesity due to excess calories Plan: Continue to watch diet and try to walk daily (2) JORGE on CPAP: Comment: Known case of obstructive sleep apnea due to her gross obesity. She is using the CPAP regularly and sleep quality much improved. Compliance is 100% Code(s): G47.33 - Obstructive sleep apnea (adult) (pediatric); Z99.89 - Dependence on other enabling machines and devices Plan: Commended for good compliance and encouraged to keep on using CPAP every night. (3) Asthma: Comment: Chronic bronchial asthma/restrictive lung disease. Seems to be. Fairly stable at this time . FLOVENT WOULD NOT BE AVAILABLE, IT IS BEING CHANGED TO ADVAIR 250-50. Code(s): J45.909 - Unspecified asthma, uncomplicated Plan: Continue Advair HFA 115-21, 2 puffs b.i.d. And albuterol HFA 2 puffs Q 4-6 hours p.r.n. (4) Cough: Comment: FREQUENT BOUTS OF COUGH, RELATED TO HER DIAGNOSIS OF BRONCHIAL ASTHMA AND ONGOING SMOKING. Code(s): R05.9 - Cough, unspecified Plan: I EXPLAINED TO HER THAT COUGH IS NOT GOING TO BE RESOLVED ON TILL SHE STOP SMOKING COMPLETELY. HAD A GOOD DISCUSSION WITH HER AND STRESS THAT SHE MUST QUIT SMOKING, AT LEAST. START CUTTING THE NUMBER OF CIGARETTES DOWN (5) Smoking: Comment: LONG-TIME SMOKER, HAS CURRENTLY CUT DOWN TO 15 CIGARETTES A DAY. Code(s): F17.200 - Nicotine dependence, unspecified, uncomplicated Plan: COUNSELED TO QUIT SMOKING. Coding Level of Care Code Est Pt Level 4 (14547) Diagnoses Morbid obesity E66.01 JORGE on CPAP G47.33; Z99.89 Asthma J45.909 Cough R05.9 Smoking F17.200
[2023-05-31 09:11] VITALS: BP 120/64; PULSE 72; O2SAT 96; BMI 37.2
== END 2023-05-31 09:27 | disposition home or self-care (01) ==
PROVIDERS: PCP Internal Medicine; Visit Provider Internal Medicine
DX: E66.01 Morbid (severe) obesity due to excess calories (principal); G47.33 Obstructive sleep apnea (adult) (pediatric); Z99.89 Dependence on other enabling machines and devices; J45.909 Unspecified asthma, uncomplicated; R05.9 Cough, unspecified; F17.200 Nicotine dependence, unspecified, uncomplicated
CPT/HCPCS: 99214

== ENCOUNTER → 2023-05-31 09:00 | Outpatient (BNVA) | payer MEDICAID, SELFPAY | PROVIDERS: PCP Internal Medicine; Visit Provider Internal Medicine | DX: G47.33 Obstructive sleep apnea (adult) (pediatric) (principal); J45.909 Unspecified asthma, uncomplicated; R05.9 Cough, unspecified; E66.01 Morbid (severe) obesity due to excess calories; F17.210 Nicotine dependence, cigarettes, uncomplicated; Z68.37 Body mass index [BMI] 37.0-37.9, adult | CPT/HCPCS: 99212 ==

== ENCOUNTER 2023-08-24 08:28 | Outpatient (REF) | payer MEDICAID, SELFPAY ==
--- NOTE | ~2023-08-24 | XR_ITS ---
EXAMINATION: XR CHEST CLINICAL INFORMATION: Pneumonia COMPARISON: Chest radiograph from 05/13/2015 TECHNIQUE: 2 views of the chest were obtained. FINDINGS: Streaky opacities in bilateral lung bases may reflect atelectasis versus evolving infectious/inflammatory etiology. No pneumothorax. Trachea is midline. Cardiac mediastinal silhouette is not enlarged. Aorta demonstrates atherosclerotic calcifications. No large pleural effusion. Osseous structures are intact. Soft tissues are unremarkable. XR/XR chest 2V IMPRESSION: Streaky opacities in bilateral lung bases may reflect atelectasis versus evolving infectious/inflammatory etiology.
[2023-08-24 12:23] LABS: Alanine Aminotransferase 12 U/L (0-31); Albumin Level 3.8 g/dL (3.5-5.0); Alkaline Phosphatase 130 U/L (39-117); Anion Gap 11 (12-20); Aspartate Amino Transferase 16 U/L (5-31); Bilirubin Direct < 0.2 mg/dL (0.0-0.5); Bilirubin Total 0.2 mg/dL (0.0-1.0); Blood Urea Nitrogen 10 mg/dL (9-16); Calcium 9.7 mg/dL (8.4-10.2); Carbon Dioxide 29 mmol/L (22-29); Chloride 105 mmol/L (96-108); Cholesterol 113 mg/dL (<200); Estimated Glomerular Filt Rate > 60; Glucose Random 93 mg/dL (60-115); HDL Cholesterol 33 mg/dL (>40); LDL Cholesterol Calculated 51 mg/dL (<100); Potassium 4.3 mmol/L (3.3-5.1); Sodium 141 mmol/L (135-145); Total Protein 7.5 g/dL (6.5-8.0); Triglycerides 148 mg/dL (<150)
[2023-08-24 12:32] LABS: Reflex LDLD? No; TSH reflex Free T4 1.86 uIU/mL (0.32-4.0)
== END 2023-08-24 08:29 | disposition home or self-care (01) ==
LOC: HO.HHCL 08:28
PROVIDERS: Visit Provider Internal Medicine
DX: E11.9 Type 2 diabetes mellitus without complications (principal); E03.9 Hypothyroidism, unspecified; I10 Essential (primary) hypertension; J18.9 Pneumonia, unspecified organism
CPT/HCPCS: 36415; 71046; 80048; 80061; 80076; 84443

== ENCOUNTER 2023-08-24 09:54 | Outpatient (REF) | payer MEDICAID, SELFPAY ==
--- NOTE | ~2023-08-24 | MM_ITS ---
EXAMINATION: MM SCREENING DIGITAL BREAST TOMOSYNTHESIS, BILATERAL CLINICAL INFORMATION: Screening. Asymptomatic. COMPARISON: Mammography: This study is compared with prior exams dating back to 2020. TECHNIQUE: Digital breast tomosynthesis is performed in both the craniocaudal and mediolateral oblique views along with computer-aided detection (CAD). Synthesized 2D images are generated from the tomosynthesis. FINDINGS: There are scattered areas of fibroglandular density (ACR BI-RADS breast composition Category b). There are no significant masses, abnormal calcifications, or other abnormalities. There are 2 tissue markers in the left breast and one tissue marker in the right breast from prior benign percutaneous biopsies. Few, bilateral benign calcifications are present. MM/MM tomosynthesis screening BI IMPRESSION: No mammographic evidence of malignancy. ASSESSMENT: BI-RADS BI-RADS 2 - Benign Findings RECOMMENDATION: Routine annual mammography screening. 1 year F/U This examination should not preclude the clinical evaluation of a suspicious palpable abnormality. This patient's information was entered into a reminder system with a target due date for their next mammogram.
== END 2023-08-24 09:55 | disposition home or self-care (01) ==
LOC: HO.MAMMO 09:54
PROVIDERS: Visit Provider Internal Medicine
DX: Z12.31 Encounter for screening mammogram for malignant neoplasm of breast (principal)
CPT/HCPCS: 36415; 71046; 77063; 77067; 80048; 80061; 80076; 84443

== ENCOUNTER → 2023-08-24 11:30 | Outpatient (BNV) | payer MEDICAID, SELFPAY | PROVIDERS: Visit Provider Radiology Diagnostic Radiology | DX: Z12.31 Encounter for screening mammogram for malignant neoplasm of breast (principal) | CPT/HCPCS: 77063; 77067 ==

== ENCOUNTER 2023-09-05 16:49 | Outpatient (REF) | payer MEDICAID, SELFPAY ==
[2023-09-06 10:56] LABS: Bacterial Vaginosis PCR POSITIVE (Negative); Candida Group PCR NOT DETECTED (Not Detect); Candida glab krusei PCR NOT DETECTED (Not Detect); Trichomonas vaginalis PCR NOT DETECTED (Not Detect)
== END 2023-09-05 16:50 | disposition home or self-care (01) ==
LOC: HO.HHCLNP 16:49
PROVIDERS: Visit Provider Advanced Practice Midwife
DX: N89.8 Other specified noninflammatory disorders of vagina (principal)
CPT/HCPCS: 0352U

== ENCOUNTER 2023-09-07 08:11 | Outpatient (AMB) | payer MEDICAID, SELFPAY ==
[2023-09-07 09:26] VITALS: BP 120/68; PULSE 63; O2SAT 94; BMI 37.0
--- NOTE | 2023-09-07 09:26 | A.OFFVIS_ITS ---
Vital Signs 09/07/23 09:26 Height 5 ft 6.5 in Weight 233 lb BMI 37.0 BP 120/68 Blood Pressure Location Lt brachial Position Sitting Pulse 63 Pulse Source Pulse Oximeter Pulse Oximetry (%) 94 Oxygen Delivery Method Room Air Intake Visit Reasons: Sleep apnea Intake Note: pt is here for follow up and states she is feeling regular. using cpap every night. Solution Strategist Required: Yes Solution Strategist Name: #[id number] Allergies codeine [CODEINE] Allergy (Intermediate, Verified 09/07/23 09:45) LOWERED PLATELETS amlodipine Allergy (Unknown, Verified 09/07/23 09:45) Unknown atorvastatin Allergy (Unknown, Verified 09/07/23 09:45) Unknown clonidine Allergy (Unknown, Verified 09/07/23 09:45) Unknown Medication List - Last Reconciled 09/07/23 by Lily Ivan MD acetaminophen ER (Mapap Arthritis Pain) 650 mg PO Q8H PRN albuterol sulfate 90 mcg/actuation (Ventolin HFA) 1 puff PO QID aspirin 81 mg PO DAILY ibxxmeunyj-qgdilyyqvlbvp-afoe 50-325-40 mg 1 cap PO Q4-6H PRN celecoxib 200 mg PO BID cyclobenzaprine 10 mg PO TID dicyclomine 20 mg PO docusate sodium 100 mg PO BID dulaglutide (Trulicity) mg subcut QWEEK duloxetine 60 mg PO QAM famotidine 40 mg PO fluticasone propion-salmeterol 115-21 mcg/actuation (Advair HFA) 2 puffs PO BID fluticasone propionate 50 mcg/actuation (Flonase Allergy Relief) 1 spray intranasal DAILY furosemide 20 mg PO BID hydralazine 50 mg PO TID hydrocortisone 2.5% (Procto-Med HC) topical BID levothyroxine (Synthroid) 75 mcg PO DAILY losartan 100 mg PO DAILY metformin ER 1,000 mg PO metoprolol succinate ER 100 mg PO DAILY montelukast (Singulair) 10 mg PO BEDTIME nitroglycerin (Nitrostat) 0.4 mg sublingual Q5M PRN polyethylene glycol 3350 (Miralax) 17 grams PO DAILY rosuvastatin (Crestor) 40 mg PO DAILY topiramate 50 mg PO BID verapamil ER 300 mg PO BEDTIME Do you need a note to return to daycare/school/sports/work: No HPI HPI Sleep apnea: Details: 63 years old female, comes for follow-up for her COPD, obstructive sleep apnea, and allergic rhinitis. SHE CONTINUES TO SMOKE ABOUT 12 CIGARETTES A DAY. WE HAD A GOOD DISCUSSION BUT SHE CONTINUES TO GIVE ME LOT OF EXCUSES FOR CONTINUED SMOKING. I DID TALK TO HER ABOUT ANNUAL LUNG SCREENING PROGRAM AND SHE WILL BE WILLING TO JOIN THE PROGRAM. SHE STATES THAT HER BREATHING IS SAME USUAL WITH INTERMITTENT DRY COUGH, AND SOME SHORTNESS OF BREATH ON WALKING AROUND OR CLIMBING STAIRS. SHE DENIES ANY ACTIVE WHEEZING, AND IN FACT HAS BEEN USING ADVAIR HFA ONLY ONCE A DAY. SHE USES CPAP EVERY NIGHT REGULARLY. SHE HAS NOT BEEN ABLE TO LOSE ANY WEIGHT WHICH IS NOT EXPECTED. [facility] Medical History (Updated 09/07/23 @ 09:53 by Lily Ivan MD) Asthma with COPD Smoking Cough Breast calcification, left Obesity (BMI 30-39.9) COVID-19 Breast mass, right COVID-19 vaccine series completed Venous insufficiency Elevated cholesterol CAD (coronary artery disease) Myocardial infarction GERD (gastroesophageal reflux disease) Arthritis Hypothyroid HTN (hypertension) Asthma Allergic rhinitis JORGE on CPAP Morbid obesity Surgical History History of esophagogastroduodenoscopy (EGD) Hx of arthroscopic knee surgery History of total right knee replacement (10/19/17) H/O colonoscopy Family History Father Prostate cancer Social History Patient Tobacco Use Status: Current everyday Tobacco user Tobacco use type: Cigarette Cigarette Packs Per Day: 0.5 Cigarettes Per Day: 10 Current occupational status: disabled 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 Female Reproductive History Menstrual Age of Menarche: 10 Review of Systems Const All systems reviewed & are unremarkable except as noted in HPI and below Eyes Reports no additional complaints ENT Reports nasal congestion (Mild off and on) Card Denies chest pain, Denies irregular heart rhythm and Denies leg edema Resp Reports as per HPI (Has increased cough, nasal congestion and slightly more short of breath ) GI Reports no additional complaints Reports no additional complaints Musc Reports back pain and Reports arthralgias Skin/Breast Reports system reviewed and no additional complaints, except as documented Neuro Reports no additional complaints Psych Reports no additional complaints Endo Reports no additional complaints Physical Exam Vital Signs: Last Vital Signs Pulse 63 09/07/23 09:26 BP 120/68 09/07/23 09:26 Pulse Ox 94 09/07/23 09:26 Oxygen Delivery Method Room Air 09/07/23 09:26 BMI result Body Mass Index 37.0 Const Other: Grossly overweight with round face General: comfortable, no acute distress, alert and awake Orientation/consciousness: patient oriented x3 HEENT Head: Yes normal to inspection General nose exam: No nasal polyps present and No nasal discharge present Face and sinus: Yes sinuses nontender Mouth: oropharynx normal Throat: Yes posterior oropharynx normal Eyes General: appearance normal, both eyes and all related structures Neck Neck: Yes normal visual inspection, Yes no lymphadenopathy, Yes trachea midline and Yes no JVD Thyroid: Thyroid normal Chest Chest palpation & inspection: normal inspection of the chest, normal palpation of entire chest wall and no tenderness Resp Other: Percussion note not perceptible because of the thick chest wall. She does have good and equal breath sounds on both sides but decreased over the basilar areas. No wheezes rhonchi or crepitations are heard. Cardio Palpation: PMI not normal (Not palpable) Rate: regular rate Rhythm: regular rhythm Heart sounds: no gallops and no murmurs GI Palpation (GI): Soft to palpation, nontender, No hepatosplenomegaly present, no masses and Other GI palpation findings present (Abdomen is moderately obese and protuberant) Auscultation: normal bowel sounds Back/Spine/Pelvis Thoracic/Lumbar Spine: thoracic and lumbar spine normal to inspection and thoraco-lumbar ROM limited Skin General skin exam: no rashes or lesions noted Neuro General: patient oriented x3 and no focal motor deficits Cranial nerves: Yes CN's II-XII intact bilaterally Extrem General: Yes normal to inspection, No no joint enlargement (Both knees enlarged and slightly tender, especially the left knee), Yes no clubbing, cyanosis or edema and Yes no calf tenderness Psych Appearance: grossly normal and well kempt Speech and movement: Normal speech and movement present Results Reviewed Results Reviewed: HER COMPLIANCE IS 100%. AVERAGE USE PER NIGHT 6 HOURS 15 MINUTES, PRESSURE 13 CM, THERE IS MODERATE AIR LEAK. RESIDUAL AHI ONLY 1.2 Assessment & Plan Assessment & Plan (1) Morbid obesity: Comment: CHRONIC PROBLEM , NOT EXPECTED TO CHANGE , SHE IS TRYING TO RESTRICT CALORIES INTAKE AND WALK DAILY BUT MINIMAL.. ENCOURAGED TO CONTINUE DOING THAT. Code(s): E66.01 - Morbid (severe) obesity due to excess calories Category: Medical Plan: AGAIN TALKED TO HER ABOUT THE WEIGHT AND SHE NEEDS TO WATCH HER DIET AND TRY TO WALK MUCH SHE CAN. (2) JORGE on CPAP: Comment: KNOWN CASE OF OBSTRUCTIVE SLEEP APNEA, VERY COMPLIANT IN USING CPAP AND BENEFITTING. COMPLIANCE IS 100%. Code(s): G47.33 - Obstructive sleep apnea (adult) (pediatric); Z99.89 - Dependence on other enabling machines and devices Category: Medical Plan: ADVISED TO CONTINUE USING CPAP EVERY NIGHT AT LEAST FOR 6 HOURS PER NIGHT. (3) Allergic rhinitis: Comment: MILD , CONTROLLED . Code(s): J30.9 - Allergic rhinitis, unspecified Category: Medical Plan: CONTINUE FLONASE-51 SPRAY IN EACH NOSTRIL DAILY (4) Asthma with COPD: Comment: SHE HAS CHRONIC BRONCHIAL ASTHMA WITH ELEMENT OF COPD. AND ALSO HAS RESTRICTIVE COMPONENT DUE TO MORBID OBESITY. SEEMS TO BE WELL CONTROLLED EXCEPT FOR INTERMITTENT COUGH WHICH IS MORE DUE TO SMOKING. Code(s): J44.89 - Other specified chronic obstructive pulmonary disease Category: Medical Plan: CONTINUE ADVAIR HFA 115-212 PUFFS B.I.D.. USE PROAIR 2 PUFFS Q 6 HOURS ONLY P.R.N. (5) Cough: Comment: FREQUENT BOUTS OF COUGH, RELATED TO HER DIAGNOSIS OF BRONCHIAL ASTHMA AND ONGOING SMOKING. Code(s): R05.9 - Cough, unspecified Category: Medical Plan: I DISCUSSED WITH HER AND TOLD HER THAT COUGH IS NOT GOING TO GO AWAY COMPLETELY ON TILL SHE STOP SMOKING COMPLETELY. SHE UNDERSTAND IT WELL. (6) Smoking: Comment: LONG-TIME SMOKER, HAS CURRENTLY CUT DOWN TO 12 CIGARETTES A DAY. Code(s): F17.200 - Nicotine dependence, unspecified, uncomplicated Category: Social Hx Plan: HAD A LONG DISCUSSION THROUGH THE PRIMARY SCHOOL TEACHER LIBRARIAN, I TOLD HER THAT SHE HAS TO STOP S MOKING FOR HER GOOD HEALTH. SHE WILL TRY TO CUT DOWN THE NUMBER OF CIGARETTES SLOWLY. ALSO ADVISED HER TO JOIN THE ANNUAL LUNG SCREENING PROGRAM. Orders: Referrals Thoracic/General Surgery Referral F17.200 - Nicotine dependence, unspecified, uncomplicated, J44.89 - Other specified chronic obstructive pulmonary disease Coding Level of Care Code Est Pt Level 4 (48090) Diagnoses Morbid obesity E66.01 JORGE on CPAP G47.33; Z99.89 Allergic rhinitis J30.9 Asthma with COPD J44.89 Cough R05.9 Smoking F17.200
== END 2023-09-07 09:47 | disposition home or self-care (01) ==
PROVIDERS: PCP Internal Medicine; Referring Provider Internal Medicine; Visit Provider Internal Medicine
DX: E66.01 Morbid (severe) obesity due to excess calories (principal); G47.33 Obstructive sleep apnea (adult) (pediatric); Z99.89 Dependence on other enabling machines and devices; J30.9 Allergic rhinitis, unspecified; J44.89 Other specified chronic obstructive pulmonary disease; R05.9 Cough, unspecified; F17.200 Nicotine dependence, unspecified, uncomplicated
CPT/HCPCS: 99214

== ENCOUNTER → 2023-09-07 08:11 | Outpatient (BNVA) | payer MEDICAID, SELFPAY | PROVIDERS: PCP Internal Medicine; Visit Provider Internal Medicine | DX: G47.33 Obstructive sleep apnea (adult) (pediatric) (principal); J44.89 Other specified chronic obstructive pulmonary disease; J30.9 Allergic rhinitis, unspecified; R05.9 Cough, unspecified; F17.210 Nicotine dependence, cigarettes, uncomplicated; E66.01 Morbid (severe) obesity due to excess calories; Z99.89 Dependence on other enabling machines and devices; Z68.37 Body mass index [BMI] 37.0-37.9, adult | CPT/HCPCS: 99212 ==

== ENCOUNTER 2023-09-15 08:02 | Outpatient (REF) | payer MEDICAID, SELFPAY ==
--- NOTE | ~2023-09-15 | FL_ITS ---
EXAMINATION: XR FLUOROSCOPY UPPER GI WITH AIR CLINICAL INFORMATION: Dysphagia COMPARISON: None TECHNIQUE: Fluoroscopic air contrast upper GI examination was performed utilizing standard techniques with thin and thick barium and effervescent granules. Numerous spot images were obtained. FINDINGS: Lateral cine images of the oropharynx and hypopharynx demonstrate a delayed swallow mechanism with early spillage and pooling of contrast in the vallecula and piriform sinuses. No tracheal penetration, glottic or subglottic aspiration identified. No nasopharyngeal reflux present. A small anterior cervical web is present at the level of C5. Hypopharyngeal structures appear normal without evidence of mass or diverticulum. There was no significant cricopharyngeal achalasia. Dual and single contrast images of the esophagus demonstrate normal caliber, contour, and mucosal pattern. No mass, or ulcerations are identified. Esophageal peristalsis was mildly disorganized. Smooth narrowing of the GE junction is present, either representing mild to moderate achalasia, or a short segment benign stricture. A small type I hiatal hernia is present. Gastroesophageal reflux up the thoracic inlet. Dual contrast and single contrast images of the stomach demonstrated a normal contour. The gastric rugal folds have a thickened appearance to suggest gastritis. No masses or ulcerations are seen.. Contrast freely passed into the gastric antrum and duodenal bulb without delay. Single and air-contrast images of the duodenal bulb demonstrate no abnormality. The duodenal sweep has a normal appearance, course, and mucosal fold appearance. No malrotation. The imaged proximal jejunum has a normal fold pattern and caliber. FLUOROSCOPY TIME: 5 minutes Number of Spot Images: 10 Number of Cine: 15 DOSE AREA PRODUCT: 4579 uGy-m2 (microgray-meter squared) FL/FL barium swallow IMPRESSION: 1. Delayed swallow mechanism with pooling of contrast in the vallecula and piriform sinuses. No aspiration. 2. Mildly disorganized esophageal peristalsis. 3. There is mild to moderate smooth narrowing of the GE junction, findings possibly representing achalasia versus a benign stricture. 4. Small type I hiatal hernia. 5. Moderate gastroesophageal reflux. 6. Thickened gastric rugal folds that suggests gastritis. This procedure was performed by Alberto Felix PA-C, and supervised by Dr. Zarate
== END 2023-09-15 08:03 | disposition home or self-care (01) ==
LOC: HO.XRAY 08:02
PROVIDERS: PCP Internal Medicine; Visit Provider Internal Medicine
DX: R13.12 Dysphagia, oropharyngeal phase (principal)
CPT/HCPCS: 74220

== ENCOUNTER → 2023-09-15 08:03 | Outpatient (BNV) | payer MEDICAID, SELFPAY | PROVIDERS: PCP Internal Medicine; Visit Provider Physician Assistant Surgical | DX: R13.10 Dysphagia, unspecified (principal) | CPT/HCPCS: 74246 ==

== ENCOUNTER 2023-10-03 12:04 | Outpatient (REF) | payer MEDICAID, SELFPAY ==
--- NOTE | ~2023-10-03 | CT_ITS ---
EXAMINATION: CT ABDOMEN AND PELVIS WITH CONTRAST CLINICAL INFORMATION: Abdominal wall hernia. COMPARISON: CT abdomen and pelvis 04/20/2020. TECHNIQUE: Multidetector volumetric images were obtained from the superior aspect of the liver through the pubic symphysis following administration 85 mL of Omnipaque 350 intravenous contrast. Sagittal and coronal reformatted images were obtained on the technologist's workstation. Oral Contrast: No. This CT examination was performed using dose optimization techniques as appropriate, variously including the following: *Automated exposure control. *Adjustment of mA and/or kV according to patient size (this includes techniques or standardized protocols for targeted exams where dose is matched to indication/reason for exam; i.e. extremities or head). *Use of iterative reconstruction technique. DLP: 604 mGy-cm FINDINGS: LUNG BASES: Some minimal basilar atelectasis is present. LIVER, GALLBLADDER, AND BILIARY TREE: The liver is enlarged measuring 18.5 cm in cephalocaudad dimension with decreased attenuation suggesting steatosis. No focal hepatic lesion or biliary ductal dilatation is present. Status post cholecystectomy. PANCREAS: Unremarkable. SPLEEN: Spleen is enlarged at 12.7 cm. ADRENAL GLANDS: Unremarkable. KIDNEYS AND URETERS: The kidneys are normal in size, shape, and attenuation. No hydronephrosis, hydroureter, or calculi seen. No perinephric stranding. BLADDER: Unremarkable. GASTROINTESTINAL TRACT: The small and large bowel are unremarkable. The appendix is unremarkable. ABDOMINAL WALL: There is a tiny periumbilical hernia seen containing only fat. No significant abdominal wall or inguinal hernia is appreciated. LYMPH NODES: Shotty retroperitoneal lymph nodes are seen without adenopathy. VASCULAR: Calcific atherosclerotic changes are present in the aorta and iliofemoral vessels. There is no evidence of an abdominal aortic aneurysm. PELVIC VISCERA: The retroverted uterus and adnexa are unremarkable. surgical clips present in the left adnexa. OSSEOUS STRUCTURES: Unremarkable. CT/CT abdomen pelvis w IV con IMPRESSION: 1. A significant abdominal wall hernia is not seen. There is a tiny periumbilical hernia containing only fat. 2. Incidental note made of an enlarged fatty liver, mild splenomegaly and cholecystectomy. Fleischner guidelines were followed.
[2023-10-03] MEDS: Barium Sulfate Oral (Mocha) 450 ML ORAL.SUSP 900 ML PO (15:19)
[2023-10-03] MEDS: iohexoL 350 MG/ML 75 ML INFUS..BTL 85 ML IV (15:19)
[2023-10-04 08:10] LABS: Creatinine POC 0.8 mg/dL (0.5-1.4); GFR POC > 60
== END 2023-10-03 12:05 | disposition home or self-care (01) ==
LOC: HO.CT 12:04
PROVIDERS: PCP Internal Medicine; Visit Provider Internal Medicine
DX: K43.9 Ventral hernia without obstruction or gangrene (principal)
CPT/HCPCS: 74177; 82565; Q9967

== ENCOUNTER 2023-10-12 12:24 | Outpatient (REF) | payer MEDICAID, SELFPAY ==
--- NOTE | ~2023-10-12 | XR_ITS ---
EXAMINATION: XR CHEST CLINICAL INFORMATION: Streaky opacities bilateral lung bases. COMPARISON: 10/05/20222023 TECHNIQUE: 2 views of the chest were obtained. FINDINGS: Lungs are well expanded. A few linear opacities of mild scarring or atelectasis are present at the bases, and these findings remain similar in appearance compared to 08/24/2023. No airspace disease or pleural effusion. Cardiac silhouette is normal in size. There is atherosclerotic calcification of the aorta. No acute osseous abnormality. XR/XR chest 2V IMPRESSION: No evidence of pneumonia. No acute pulmonary disease compared to 08/24/2023.
== END 2023-10-12 12:25 | disposition home or self-care (01) ==
LOC: HO.HHCX 12:24
PROVIDERS: Visit Provider Internal Medicine
DX: F17.200 Nicotine dependence, unspecified, uncomplicated (principal)
CPT/HCPCS: 71046

== ENCOUNTER 2023-11-27 13:04 | Outpatient (AMB) | payer MEDICAID, SELFPAY ==
--- NOTE | 2023-11-27 13:07 | A.OFFVIS_ITS ---
Vital Signs 11/27/23 13:08 Height 5 ft 6.5 in Weight 233 lb BMI 37.0 Intake Visit Reasons: OV-bilat knee pain Intake Note: Arianna is a 63 year old female who presents today for a follow up of her bilateral knee pain. Hx of a right TKA 10/19/2017. Patient reports bilateral knee pain, refused PT at her last visit. Allergies codeine [CODEINE] Allergy (Intermediate, Verified 11/27/23 13:10) LOWERED PLATELETS amlodipine Allergy (Unknown, Verified 11/27/23 13:10) Unknown atorvastatin Allergy (Unknown, Verified 11/27/23 13:10) Unknown clonidine Allergy (Unknown, Verified 11/27/23 13:10) Unknown HPI HPI OV-bilat knee pain: Details: Arianna is a 63 year old female who presents today for a follow up of her bilateral knee pain. Hx of a right TKA 10/19/2017. Patient reports bilateral knee pain, refused PT at her last visit. She is essentially here today because she would like a walker. She does have left knee pain. She has known left knee osteoarthritis. She is not currently a surgical candidate. She has known left knee osteoarthritis [facility] Medical History (Updated 10/24/23 @ 09:19 by Katrina Velez PA-C) CAD (coronary artery disease) History of myocardial infarction Venous insufficiency HTN (hypertension) Elevated cholesterol Hypothyroid GERD (gastroesophageal reflux disease) Asthma Asthma with COPD JORGE on CPAP Cough Allergic rhinitis Nicotine dependence, cigarettes, uncomplicated Breast calcification, left Breast mass, right Arthritis Obesity (BMI 30-39.9) COVID-19 vaccine series completed Surgical History (Updated 10/24/23 @ 09:19 by Katrina Velez PA-C) History of esophagogastroduodenoscopy (EGD) Hx of arthroscopic knee surgery History of total right knee replacement (10/19/17) H/O colonoscopy Family History Father Prostate cancer Social History Patient Tobacco Use Status: Current everyday Tobacco user Tobacco use type: Cigarette Cigarette Packs Per Day: 0.5 Cigarettes Per Day: 10 Current occupational status: disabled 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 Left knee with valgus alignment and tenderness to palpation lateral compartment. Mild bilateral lower extremity edema. Or ambulatory capacity. Assessment & Plan Assessment & Plan (1) Arthritis of left knee: Code(s): M17.12 - Unilateral primary osteoarthritis, left knee Category: Medical Plan: This is a 63-year-old woman with left knee osteoarthritis. She has multiple pulmonary comorbidities well as a history of cardiac disease and a smoker. She would like a walker and this was ordered for her. She will let me know if there is anything else I can do for her but at this time she is not a surgical candidate. Coding Level of Care Code Est Pt Level 4 (18177) Diagnoses Arthritis of left knee M17.12
[2023-11-27 13:08] VITALS: BMI 37.0
== END 2023-11-27 14:20 | disposition home or self-care (01) ==
PROVIDERS: PCP Internal Medicine; Supervising Provider Internal Medicine; Visit Provider Orthopaedic Surgery
DX: M17.12 Unilateral primary osteoarthritis, left knee (principal)
CPT/HCPCS: 99213

== ENCOUNTER → 2023-11-27 13:04 | Outpatient (BNVA) | payer MEDICAID, SELFPAY | PROVIDERS: PCP Internal Medicine; Visit Provider Orthopaedic Surgery | DX: M17.12 Unilateral primary osteoarthritis, left knee (principal); Z96.651 Presence of right artificial knee joint | CPT/HCPCS: 99212 ==

== ENCOUNTER 2023-12-01 09:31 | Outpatient (AMB) | payer MEDICAID, SELFPAY ==
--- NOTE | 2023-12-01 07:55 | MHC.OFFVIS ---
Intake Visit Reasons: Current Smoker Allergies codeine [CODEINE] Allergy (Intermediate, Verified 11/27/23 13:10) LOWERED PLATELETS amlodipine Allergy (Unknown, Verified 11/27/23 13:10) Unknown atorvastatin Allergy (Unknown, Verified 11/27/23 13:10) Unknown clonidine Allergy (Unknown, Verified 11/27/23 13:10) Unknown HPI HPI Current Smoker: Details: Initial visit for this 63yo smoker with a 50PYH. Patient has been smoking since age 15 for 48 years. Max 2ppd. Currently 10-15cig/day. . Denies marijuana use. Denies second hand smoke exposure. Denies exposure to chemicals or substances like asbestos. . Denies known family history of lung cancer. Denies personal history of cancers. Denies chest CT in last year. . Denies recent travel outside the [place]. Denies recent respiratory illness or recent hospitalization for respiratory issues. Admits testing positive for COVID. Admits receiving COVID Vaccine. . Denies fever, chills, new/worsening cough, hemoptysis, hoarseness or dysphagia. Denies significant chest pain, significant dyspnea or unintentional weight loss. Patient Lung Cancer Screening Questionnaire reviewed with patient by provider. . Shared Decision Making Completed. Patient meets criteria. Discussed in detail with patient, the risk vs benefit of LDCT screening. Patient consents to proceed with scan. Discussed smoking cessation. [facility] Medical History (Updated 12/01/23 @ 09:50 by Katrina Velez PA-C) CAD (coronary artery disease) History of myocardial infarction Venous insufficiency HTN (hypertension) Elevated cholesterol Hypothyroid GERD (gastroesophageal reflux disease) Asthma Asthma with COPD JORGE on CPAP Cough Allergic rhinitis Nicotine dependence, cigarettes, uncomplicated Breast calcification, left Breast mass, right Arthritis Obesity (BMI 30-39.9) COVID-19 vaccine series completed Surgical History (Updated 10/24/23 @ 09:19 by Katrina Velez PA-C) History of esophagogastroduodenoscopy (EGD) Hx of arthroscopic knee surgery History of total right knee replacement (10/19/17) H/O colonoscopy Family History Father Prostate cancer Social History (Updated 12/01/23 @ 09:50 by Katrina Velez PA-C) Patient Tobacco Use Status: Current everyday Tobacco user Tobacco use type: Cigarette Cigarette Packs Per Day: 0.5 Cigarettes Per Day: 10 Years Smoked: (onset 15yo, x 48yrs, max 2ppd - now 1/2-3/4ppd - 50pyh) Current occupational status: disabled 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 - Patient meets criteria for LDCT for lung cancer screening purposes and is asymptomatic. - Smoking cessation counseling offered. Patients can always call [phone]. - Will arrange for a LDCT scan of the chest for screening purposes at [facility]. - Risks, benefits, and alternatives were discussed in detail and the patient agrees to proceed. - Risks discussed include but are not limited to: radiation exposure, anxiety during testing and while awaiting results, false negatives, false positives and possibility of additional intervention such as further imaging or surgical procedures for benign disease. - Benefits are obviously detection of lung cancer at an early stage which can lead to improved outcomes. - Discussed the importance of screening program compliance with adherence to yearly LDCT scan as scheduled - or sooner interval scans for personalized screening regimen. - Discussed follow up plan. Our office will send a letter discussing results and if needed set up phone call and office visit based on CT findings. - Patient educated on results categorization and the management decisions for suspicious findings potentially found on the screening LDCT scan. Any patient with a Lung RADS score of 3 or 4 will be reviewed by a multidisciplinary team at [facility] to form a plan of action in regards to scan findings. - If further work up is warranted for a suspicious lung finding this will be followed by the Lung Cancer Screening program in conjunction with the Thoracic Surgery Department at [facility]. - A copy of the office note and LDCT will be sent to the patient's PCP - as well as documentation on any associated further plans of care. - Incidental findings on LDCT are the PCP's responsibility. These findings are indicated with an S finding on the LDCT Assessment. A note discussing the findings will be sent to the PCP who is then responsible for further management. - All questions answered.? Coding Level of Care Code Lung Cancer Screening G0296 Diagnoses Nicotine dependence, cigarettes, uncomplicated F17.210
== END 2023-12-01 10:04 | disposition home or self-care (01) ==
PROVIDERS: PCP Internal Medicine; Referring Provider Internal Medicine; Visit Provider Physician Assistant Medical
DX: F17.210 Nicotine dependence, cigarettes, uncomplicated (principal)
CPT/HCPCS: G0296

== ENCOUNTER 2023-12-01 09:56 | Outpatient (REF) | payer MEDICAID, SELFPAY ==
--- NOTE | ~2023-12-01 | CT_ITS ---
EXAMINATION: CT LOW-DOSE SCREENING CHEST WITHOUT CONTRAST CLINICAL INFORMATION: Nicotine dependence, cigarettes, uncomplicated. Patient is a current smoker with a 44 pack-year history of smoking. COMPARISON: None available. TECHNIQUE: Multidetector volumetric CT imaging of the chest is performed on a Siemens SOMATOM Definition scanner without contrast using low dose technique. Additional 2D coronal and sagittal reformatted images and axial 3D maximum intensity projection (MIP) images are generated on the CT workstation. This CT examination was performed using dose optimization techniques as appropriate, variously including the following: *Automated exposure control *Adjustment of mA and/or kV according to patient size (this includes techniques or standardized protocols for targeted exams where dose is matched to indication/reason for exam; i.e. extremities or head) *Use of iterative reconstruction technique TOTAL EXAM DLP: 70 mGy-cm. CTDIvol: 2.20 mGy. FINDINGS: PULMONARY NODULES: No suspicious pulmonary nodules. LUNGS: Lungs bilaterally symmetrically expanded. There is bibasilar atelectasis. Mgyf-rz-dxyefwkc diffuse bronchial thickening. Mild emphysematous changes. No focal lung nodule or mass. No effusion or pneumothorax. Central airways patent. MEDIASTINUM: No mediastinal, hilar or axillary adenopathy or free fluid collection. CORONARY ARTERY CALCIFICATION: None visualized on this study. THYROID GLAND: Unremarkable to the extent seen. CARDIOVASCULAR STRUCTURES: Aortic and heart size normal. No pericardial effusion. CHEST WALL/AXILLA: Unremarkable. UPPER ABDOMEN: Included portions of the solid organs in the upper abdomen unremarkable on noncontrast imaging. OSSEOUS STRUCTURES: No suspicious focal findings. CT/CT lung screening IMPRESSION: No suspicious pulmonary nodules. ASSESSMENT: 1. Lung-RADS Category 1: Negative. There are no nodules or there are definitely benign nodules. N/A 2. Lung-RADS Category S: Negative. There are no clinically significant or potentially clinically significant findings not related to the lungs requiring urgent additional evaluation. RECOMMENDATION: Continued routine annual low-dose CT lung screening in 1 year is recommended. An order for CT CHEST LOW DOSE CANCER SCREENING ([id number]) can be placed. Electronically signed by: Eric Martinez MD 12/04/2023 09:55 PM EDT
== END 2023-12-01 09:57 | disposition home or self-care (01) ==
LOC: HO.CT 09:56
PROVIDERS: Visit Provider Physician Assistant Medical
DX: Z12.2 Encounter for screening for malignant neoplasm of respiratory organs (principal); F17.210 Nicotine dependence, cigarettes, uncomplicated
CPT/HCPCS: 71271; G0296

== ENCOUNTER 2024-01-02 10:06 | Outpatient (AMB) | payer MEDICAID, SELFPAY ==
--- NOTE | 2024-01-02 10:15 | A.OFFVIS_ITS ---
Vital Signs 01/02/24 10:16 Height 5 ft 6.5 in Weight 229 lb BMI 36.4 BP 122/64 Blood Pressure Location Lt brachial Position Sitting Pulse 71 Pulse Source Pulse Oximeter Pulse Oximetry (%) 95 Oxygen Delivery Method Room Air Intake Visit Reasons: jorge Intake Note: pt is here for follow up and states she is feeling little fatigue and short of breath, some GI issues add to this, using cpap at night Manager Of Construction Required: Yes Manager Of Construction Services: Manager Of Construction Present Manager Of Construction Name: Linda Allergies codeine [CODEINE] Allergy (Intermediate, Verified 01/02/24 10:29) LOWERED PLATELETS amlodipine Allergy (Unknown, Verified 01/02/24 10:29) Unknown atorvastatin Allergy (Unknown, Verified 01/02/24 10:29) Unknown clonidine Allergy (Unknown, Verified 01/02/24 10:29) Unknown Medication List - Last Reconciled 01/02/24 by Lily Ivan MD acetaminophen ER (Mapap Arthritis Pain) 650 mg PO Q8H PRN albuterol sulfate 90 mcg/actuation (Ventolin HFA) 1 puff PO QID aspirin 81 mg PO DAILY tuodhchlbo-osyvkzhkxngih-xzdp 50-325-40 mg 1 cap PO Q4-6H PRN celecoxib 200 mg PO BID cyclobenzaprine 10 mg PO TID dicyclomine 20 mg PO docusate sodium 100 mg PO BID dulaglutide (Trulicity) mg subcut QWEEK duloxetine 60 mg PO QAM famotidine 40 mg PO fluticasone propion-salmeterol 115-21 mcg/actuation (Advair HFA) 2 puffs PO BID fluticasone propionate 50 mcg/actuation (Flonase Allergy Relief) 1 spray intranasal DAILY furosemide 20 mg PO BID hydralazine 50 mg PO TID hydrocortisone 2.5% (Procto-Med HC) topical BID levothyroxine (Synthroid) 75 mcg PO DAILY losartan 100 mg PO DAILY metformin ER 1,000 mg PO metoprolol succinate ER 100 mg PO DAILY montelukast (Singulair) 10 mg PO BEDTIME nitroglycerin (Nitrostat) 0.4 mg sublingual Q5M PRN polyethylene glycol 3350 (Miralax) 17 grams PO DAILY rosuvastatin (Crestor) 40 mg PO DAILY topiramate 50 mg PO BID verapamil ER 300 mg PO BEDTIME Do you need a note to return to daycare/school/sports/work: No HPI HPI jorge: Details: YUAN his 63 years old female grossly obese with diagnosis of obstructive sleep apnea. Also has longstanding history of smoking and has chronic obstructive pulmonary disease. Comes for her routine follow-up. Main complaint is getting short of breath if she walks outdoors or climbs stairs. She walks with a walker because of gait instability. Smoking is between 10-15 cigarettes a day. She has tried nicotine patches, Chantix, Wellbutrin, without any success. However she used to smoke about 2 packs a day and now she has cut it weight down. Physically not very active and she has not been able to lose much weight, except that is in the last 4 months she has lost [address] scan of the chest was negative . Uses CPAP very regularly every night, has some air leak, which she can not stop because when she tighten the straps it becomes uncomfortable. [facility] Medical History CAD (coronary artery disease) History of myocardial infarction Venous insufficiency HTN (hypertension) Elevated cholesterol Hypothyroid GERD (gastroesophageal reflux disease) Asthma Asthma with COPD JORGE on CPAP Cough Allergic rhinitis Nicotine dependence, cigarettes, uncomplicated Breast calcification, left Breast mass, right Arthritis Obesity (BMI 30-39.9) COVID-19 vaccine series completed Surgical History History of esophagogastroduodenoscopy (EGD) Hx of arthroscopic knee surgery History of total right knee replacement (10/19/17) H/O colonoscopy Family History Father Prostate cancer Social History Patient Tobacco Use Status: Current everyday Tobacco user Tobacco use type: Cigarette Cigarette Packs Per Day: 0.5 Cigarettes Per Day: 10 Years Smoked: (onset 15yo, x 48yrs, max 2ppd - now 1/2-3/4ppd - 50pyh) Current occupational status: disabled 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 Female Reproductive History Menstrual Age of Menarche: 10 Review of Systems Const All systems reviewed & are unremarkable except as noted in HPI and below Eyes Reports no additional complaints ENT Reports nasal congestion (Mild off and on) Card Denies chest pain, Denies irregular heart rhythm and Denies leg edema Resp Reports as per HPI (Has increased cough, nasal congestion and slightly more short of breath ) GI Reports no additional complaints Reports no additional complaints Musc Reports back pain and Reports arthralgias Skin/Breast Reports system reviewed and no additional complaints, except as documented Neuro Reports no additional complaints Psych Reports no additional complaints Endo Reports no additional complaints Physical Exam Const Other: Grossly overweight with round face General: comfortable, no acute distress, alert and awake Orientation/consciousness: patient oriented x3 HEENT Head: Yes normal to inspection General nose exam: No nasal polyps present and No nasal discharge present Face and sinus: Yes sinuses nontender Mouth: oropharynx normal Throat: Yes posterior oropharynx normal Eyes General: appearance normal, both eyes and all related structures Neck Neck: Yes normal visual inspection, Yes no lymphadenopathy, Yes trachea midline and Yes no JVD Thyroid: Thyroid normal Chest Chest palpation & inspection: normal inspection of the chest, normal palpation of entire chest wall and no tenderness Resp Other: Percussion note not perceptible because of the thick chest wall. She does have good and equal breath sounds on both sides but decreased over the basilar areas. No wheezes rhonchi or crepitations are heard. Cardio Palpation: PMI not normal (Not palpable) Rate: regular rate Rhythm: regular rhythm Heart sounds: no gallops and no murmurs GI Palpation (GI): Soft to palpation, nontender, No hepatosplenomegaly present, no masses and Other GI palpation findings present (Abdomen is moderately obese and protuberant) Auscultation: normal bowel sounds Back/Spine/Pelvis Thoracic/Lumbar Spine: thoracic and lumbar spine normal to inspection and thoraco-lumbar ROM limited Skin General skin exam: no rashes or lesions noted Neuro General: patient oriented x3 and no focal motor deficits Cranial nerves: Yes CN's II-XII intact bilaterally Extrem General: Yes normal to inspection, No no joint enlargement (Both knees enlarged and slightly tender, especially the left knee), Yes no clubbing, cyanosis or edema and Yes no calf tenderness Psych Appearance: grossly normal and well kempt Speech and movement: Normal speech and movement present Results Reviewed Results Reviewed: COMPLIANCE REPORT FOR THE LAST 30 NIGHTS IS REVIEWED. SHE HAS USED 30/30 NIGHTS., 100% AVERAGE USE IT PER NIGHT 6 HOURS 53 MINUTES. THERE IS MODERATE AIR LEAK, RESIDUAL AHI ONLY 1.0 Assessment & Plan Assessment & Plan (1) Asthma with COPD: Comment: Chronic bronchial Asthma/elements of COPD/restrictive component due to morbid obesity - well controlled, but intermittent cough due to smoking) Code(s): J44.89 - Other specified chronic obstructive pulmonary disease Category: Medical Plan: EXPLAINED THAT HER COUGH WOULD GO AWAY COMPLETELY ONLY WHEN SHE QUIT SMOKING. CONTINUE THE CURRENT TREATMENT WITH ADVAIR HFA 115-212 PUFFS B.I.D. AND ALBUTEROL HFA 2 PUFFS Q.4 HOURS P.R.N. (2) JORGE on CPAP: Comment: SHE IS A KNOWN CASE OF OBSTRUCTIVE SLEEP APNEA, WELL TREATED WITH THE USE OF CPAP. SHE IS VERY COMPLIANT AND BENEFITTING Code(s): G47.33 - Obstructive sleep apnea (adult) (pediatric); Z99.89 - Dependence on other enabling machines and devices Category: Medical Plan: COMMENDED FOR GOOD COMPLIANCE AND ADVISED TO KEEP ON USING CPAP EVERY NIGHT AT LEAST FOR 6 HOURS PER NIGHT. (3) Allergic rhinitis: Comment: Mild/controlled Code(s): J30.9 - Allergic rhinitis, unspecified Category: Medical Plan: FLONASE-52 SPRAY EACH NOSTRIL DAILY. MONTELUKAST 10 MG DAILY (4) Nicotine dependence, cigarettes, uncomplicated: Comment: (onset 15yo, x 48yrs, max 2ppd - now 1/2-3/4ppd - 50pyh) Code(s): F17.210 - Nicotine dependence, cigarettes, uncomplicated Category: Medical Plan: CONTINUE ANNUAL LOW-DOSE CT SCAN HAD A GOOD DISCUSSION WITH HER AND ENCOURAGED TO KEEP ON CUTTING DOWN THE NUMBER OF CIGARETTES. Coding Level of Care Code Est Pt Level 4 (36030) Diagnoses Asthma with COPD J44.89 JORGE on CPAP G47.33; Z99.89 Allergic rhinitis J30.9 Nicotine dependence, cigarettes, uncomplicated F17.210
[2024-01-02 10:16] VITALS: BP 122/64; PULSE 71; O2SAT 95; BMI 36.4
== END 2024-01-02 11:09 | disposition home or self-care (01) ==
PROVIDERS: PCP Internal Medicine; Referring Provider Internal Medicine; Visit Provider Internal Medicine
DX: J44.89 Other specified chronic obstructive pulmonary disease (principal); G47.33 Obstructive sleep apnea (adult) (pediatric); Z99.89 Dependence on other enabling machines and devices; J30.9 Allergic rhinitis, unspecified; F17.210 Nicotine dependence, cigarettes, uncomplicated
CPT/HCPCS: 99214

== ENCOUNTER → 2024-01-02 10:06 | Outpatient (BNVA) | payer MEDICAID, SELFPAY | PROVIDERS: PCP Internal Medicine; Visit Provider Internal Medicine | DX: J44.89 Other specified chronic obstructive pulmonary disease (principal); J30.9 Allergic rhinitis, unspecified; G47.33 Obstructive sleep apnea (adult) (pediatric); F17.210 Nicotine dependence, cigarettes, uncomplicated; Z99.89 Dependence on other enabling machines and devices | CPT/HCPCS: 99212 ==

== ENCOUNTER 2024-04-01 09:12 | Outpatient (REF) | payer MEDICAID, SELFPAY ==
[2024-04-01 10:12] LABS: Hematocrit 39.1 % (37.0-47.0); Hemoglobin 12.6 g/dl (12.0-16.0); Mean Corpuscular HGB Conc 32.2 g/dl (31.0-35.0); Mean Corpuscular Hemoglobin 27.8 pg (27.0-33.0); Mean Corpuscular Volume 86.1 fL (80.0-98.0); Mean Platelet Volume 8.6 fL (9.4-12.3); Platelet Count 212 X10*3/uL (160-400); Red Blood Count 4.54 X10*6/uL (4.20-5.50); Red Cell Distribution Width 15.1 % (11.0-16.0)
[2024-04-01 10:53] LABS: Alanine Aminotransferase 22 U/L (0-31); Albumin Level 4.1 g/dL (3.5-5.0); Alkaline Phosphatase 128 U/L (39-117); Aspartate Amino Transferase 21 U/L (5-31); Bilirubin Direct < 0.2 mg/dL (0.0-0.5); Bilirubin Total 0.2 mg/dL (0.0-1.0); Iron 41 mcg/dL (30-160); Percent Iron Saturation 12 % (15-50); Total Iron Binding Capacity 335 mcg/dL (228-428); Total Protein 7.7 g/dL (6.5-8.0); Unsaturated Iron Binding 294 ug/dL
[2024-04-01 11:09] LABS: Ferritin 11 ng/mL (10-250)
[2024-04-01 11:10] LABS: Hepatitis A Antibody IgM 0.41 Index (0-0.79); ~Hepatitis A Antibody IgM Nonreactive (Nonreactive)
[2024-04-01 11:16] LABS: HBc Num1 0.07 S/CO (0.00-0.79); HBsAGNum1 0.36 S/CO (0.00-0.99); Hepatitis B Core Antibody Nonreactive (Nonreactive); Hepatitis B Surface Antigen Negative (Negative); ~Hepatitis B Surface Antibody NONREACTIVE (Nonreactive); ~Hepatitis C Antibody Nonreactive (Nonreactive)
[2024-04-04 12:13] LABS: Anti Nuclear Antibody Screen NEGATIVE (NEGATIVE)
[2024-04-04 14:08] LABS: Smooth Muscle Antibody 25 U (<20)
[2024-04-05 09:03] LABS: Mitochondrial Antibodies NEGATIVE (NEGATIVE)
[2024-04-05 16:34] LABS: FIB-ALT 14 U/L (6-29); FIB-Alpha-2-Macroglobulin 219 mg/dL (106-279); FIB-Apolipoprotein A1 153 mg/dL (101-198); FIB-GGT 119 U/L (3-65); FIB-Haptoglobin 217 mg/dL (43-212); FIB-Total Bilirubin 0.2 mg/dL (0.2-1.2); Liver Fibrosis Score 0.19; Liver Fibrosis Stage F0; Nec Inflam Act Grade A0; Nec Inflam Act Score 0.04; Reference ID 5272276
== END 2024-04-01 09:13 | disposition home or self-care (01) ==
LOC: HO.LAB 09:12
PROVIDERS: PCP Internal Medicine; Visit Provider Internal Medicine Gastroenterology
DX: R93.3 Abnormal findings on diagnostic imaging of other parts of digestive tract (principal)
CPT/HCPCS: 36415; 80076; 81596; 82728; 83540; 85027; 86015; 86038; 86381; 86704; 86706; 86709; 86803; 87340

== ENCOUNTER 2024-04-02 07:56 | Day surgery (SDC) | payer MEDICAID, SELFPAY ==
[2024-03-29 12:42] VITALS: BMI 36.6
[2024-04-02 08:58] VITALS: BMI 37.5
[2024-04-02 09:09] VITALS: BP 106/65; PULSE 71; RESP 18; TEMP 36.9; O2SAT 97
[2024-04-02 09:23] LABS: Glucose, Whole Blood 106 mg/dL (60-115)
[2024-04-02] MEDS: Lactated Ringers 1,000 ML 80 ML IVCONT (09:33)
--- NOTE | 2024-04-02 09:49 | MHC.SHP ---
Pre-Procedural Eval Section A - 24 Hr Update-Section A only Date of Service: 04/02/24 The patient is an INPATIENT: No Changes since office visit: No Cold of Flu in the past 2 weeks, No New Medical Problems, No Changes in Medication and No Patient answered all questions The patient has been examined within 24 hours of the surgical procedure. The History & Physical has been completed within 30 days and I have reviewed it.: Yes Section B - Complete if H&P > 30 days Chief Complaint: Abnormal findings on diagnostic imaging of other p Allergies: Allergies Allergy/AdvReac Type Severity Reaction Status Date / Time codeine [CODEINE] Allergy Intermediate LOWERED Verified 01/02/24 10:29 PLATELETS atorvastatin Allergy Mild Headache Verified 04/02/24 08:55 amlodipine Allergy Unknown Unknown Verified 01/02/24 10:29 clonidine Allergy Unknown Unknown Verified 01/02/24 10:29 shellfish derived [shellfish] Allergy Unknown Unknown Verified 03/29/24 13:16 Plan I have reviewed the history and physical and performed a pertinent physical examination on my patient. No changes have occurred unless specified. Time Spent With Patient Time: Total time managing care of this patient today ____ minutes.
--- NOTE | 2024-04-02 09:50 | P.CONAN_ITS ---
HPI - Anesthesia Eval Consult details Narrative: upper endo PMFSH Active Problems Active Problems: All Active Problems Bilateral knee pain (Acute) Arthritis of left knee (Acute) Multiple lipomas (Acute) Right leg paresthesias (Acute) Right lumbar radiculitis (Acute) Spondylosis of lumbar spine (Acute) Patellofemoral arthritis (Acute) Asthma with COPD (Chronic) Asthma (Acute) JORGE on CPAP (Acute) Nicotine dependence, cigarettes, uncomplicated (Acute) Allergic rhinitis (Acute) Cough (Acute) Breast calcification, left (Acute) Breast mass, right (Acute) Obesity (BMI 30-39.9) (Acute) Past Medical History Medical History History of myocardial infarction Nicotine dependence, cigarettes, uncomplicated Asthma with COPD Cough Breast calcification, left Obesity (BMI 30-39.9) Breast mass, right Venous insufficiency Elevated cholesterol CAD (coronary artery disease) GERD (gastroesophageal reflux disease) Arthritis Hypothyroid HTN (hypertension) Asthma Allergic rhinitis JORGE on CPAP Family History Family History Father Prostate cancer Family history of problems with anesthesia: No Surgical History Surgical History History of esophagogastroduodenoscopy (EGD) Hx of arthroscopic knee surgery History of total right knee replacement (10/19/17) H/O colonoscopy History of Problems with Anesthesia: No Social History Social History Patient Tobacco Use Status: Current everyday Tobacco user Tobacco use type: Cigarette Cigarette Packs Per Day: 0.5 Cigarettes Per Day: 10 Years Smoked: (onset 15yo, x 48yrs, max 2ppd - now 1/2-3/4ppd - 50pyh) Use of substances other than those prescribed or required for medical reasons: No Are you DNR?: No Advance Directives: No Advance Directives Information Provided: Yes Recently lost weight without trying: No Nutrition Risks: No Nutritional Risk Patient : No Current occupational status: disabled 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 Meds Allergies Allergy/AdvReac Type Severity Reaction Status Date / Time codeine [CODEINE] Allergy Intermediate LOWERED Verified 01/02/24 10:29 PLATELETS atorvastatin Allergy Mild Headache Verified 04/02/24 08:55 amlodipine Allergy Unknown Unknown Verified 01/02/24 10:29 clonidine Allergy Unknown Unknown Verified 01/02/24 10:29 shellfish derived [shellfish] Allergy Unknown Unknown Verified 03/29/24 13:16 Active Medications: Current Medications Lactated Ringer's (Lr) 1,000 mls @ 80 mls/hr IVCONT .[id number] MARK Last Admin: 04/02/24 09:33 Dose: 80 mls/hr Home Medications ?Medication ?Instructions ?Recorded ?Confirmed ?Last Taken ?Type aspirin 81 mg tablet,delayed 81 mg PO DAILY 04/08/20 03/29/24 Unknown History release pletveyoyc-ftemdtwrzmvrz-dzthgriv 1 cap PO Q4-6H PRN Migraine 04/08/20 03/29/24 Unknown History 50 mg-325 mg-40 mg capsule Headache cyclobenzaprine 10 mg tablet 10 mg PO TID 04/08/20 03/29/24 Unknown History docusate sodium 100 mg capsule 100 mg PO BID 04/08/20 03/29/24 Unknown History fluticasone propionate 50 1 spray intranasal DAILY 04/08/20 03/29/24 Unknown History mcg/actuation nasal spray,suspension (Flonase Allergy Relief) hydralazine 50 mg tablet 50 mg PO TID 04/08/20 03/29/24 01/12/21 History levothyroxine 75 mcg tablet 75 mcg PO DAILY 04/08/20 03/29/24 01/12/21 History (Synthroid) losartan 100 mg tablet 100 mg PO DAILY 04/08/20 03/29/24 Unknown History metoprolol succinate 100 mg 100 mg PO DAILY 04/08/20 03/29/24 01/12/21 History tablet,extended release 24 hr montelukast 10 mg tablet 10 mg PO BEDTIME 04/08/20 03/29/24 Unknown History (Singulair) nitroglycerin 0.4 mg sublingual 0.4 mg sublingual Q5M PRN Chest 04/08/20 03/29/24 Unknown History tablet (Nitrostat) Pain polyethylene glycol 3350 17 gram 17 g PO DAILY 04/08/20 03/29/24 Unknown History oral powder packet (Miralax) rosuvastatin 40 mg tablet (Crestor) 40 mg PO DAILY 04/08/20 03/29/24 Unknown History topiramate 50 mg tablet 50 mg PO BID 04/08/20 03/29/24 01/12/21 History verapamil 300 mg capsule 24hr 300 mg PO BEDTIME 04/08/20 03/29/24 01/12/[address],ext.release furosemide 20 mg tablet 20 mg PO BID 02/09/21 03/29/24 Unknown History dicyclomine 20 mg tablet 20 mg PO BID 08/27/21 03/29/24 Unknown History famotidine 40 mg tablet 40 mg PO DAILY 08/27/21 03/29/24 Unknown History metformin 500 mg tablet,extended 1,000 mg PO BID 08/27/21 03/29/24 Unknown History release 24 hr dulaglutide 0.75 mg/0.5 mL 0.75 mg subcut QWEEK 09/22/21 03/29/24 03/17/24 History [facility] hydrocortisone 2.5 % topical cream 1 appl topical BID 03/11/22 03/29/24 Unknown History with perineal applicator (cookdinner HC) Exam Height,Weight and Vital Signs: Height 5 ft 6.5 in Weight 107.104 kg Last Vital Signs Temp 98.4 F 04/02/24 09:09 Pulse 71 04/02/24 09:09 Resp 18 04/02/24 09:09 BP 106/65 04/02/24 09:09 Pulse Ox 97 04/02/24 09:09 O2 Del Method Room Air 04/02/24 09:09 Pertinent Lab Results Pertinent Lab Results: Laboratory Tests 04/02/24 09:19 POC Glucose 106 Airway Mallampati Class: III TM Dist: >3cm Denture: Upper and Lower Heart: rrr Lungs: cta Assessment and Plan Assessment Anesthesia Assessment: Anesthesia Plan Discussed Final Anesthetic Review Family History of Problems with Anesthesia: No History of Problems with Anesthesia: No NPO: Yes ASA Class: III Final Preanesthetic Review: No Changes in Pt Med Stat, Meds/Allgs Chart Reviewed, Consent Obtained/Reviewed and Anes Risks/Benef Reviewed Patient Risk: Intermediate Procedure Risk: Low Anesthetic Plan Anesthetic Plan: MAC: Disposition: Standard PACU
[2024-04-02 10:09] VITALS: BP 129/72; PULSE 71; RESP 18; TEMP 36.4; O2SAT 94
[2024-04-02 10:24] VITALS: BP 139/88; PULSE 83; RESP 18; TEMP 36.4; O2SAT 96
--- NOTE | 2024-04-02 10:41 | OP_ITS ---
DATE OF SERVICE: 04/02/2024 SURGEON: Medardo Delgado MD INDICATIONS: Abnormal upper GI series. PREOPERATIVE DIAGNOSIS: POSTOPERATIVE DIAGNOSIS: PROCEDURE PERFORMED: ESTIMATED BLOOD LOSS: COMPLICATIONS: ANESTHESIA: ASSISTANTS: SPECIMENS: PROCEDURE: Upper endoscopy with biopsy. MEDICATIONS: Monitored anesthesia care. DESCRIPTION OF PROCEDURE: A history and physical performed. The risks and benefits of procedure explained to the patient. Informed consent was obtained. The patient was placed in the left lateral decubitus position. The Olympus video gastroscope was introduced into the esophagus, stomach, and duodenum. Examination was performed. The scope was removed. She tolerated the procedure well and was returned to recovery room in stable condition. FINDINGS: 1. Esophagus: The esophagus was normal. Biopsies were obtained from the EG junction. 2. Stomach: The stomach was normal. Biopsies were obtained from the antrum. 3. Duodenum: The bulb and 2nd portion were normal. Biopsies were obtained from the 2nd portion. IMPRESSION: Normal upper endoscopy. RECOMMENDATION: Followup the biopsy results. MD SUYAPA Gambino/ERICKAL / [id number]
== END 2024-04-02 10:40 | disposition home or self-care (01) ==
PROVIDERS: PCP Internal Medicine; Visit Provider Internal Medicine Gastroenterology
PROC: 0DJ08ZZ Inspection of Upper Intestinal Tract, Via Natural or Artificial Opening Endoscopic (ICD-10-PCS; CPT 43235; principal; 2024-04-02 10:20)
DX: R93.3 Abnormal findings on diagnostic imaging of other parts of digestive tract (principal); R13.10 Dysphagia, unspecified; K29.50 Unspecified chronic gastritis without bleeding; K21.9 Gastro-esophageal reflux disease without esophagitis; K76.0 Fatty (change of) liver, not elsewhere classified; I10 Essential (primary) hypertension; E11.9 Type 2 diabetes mellitus without complications; E66.9 Obesity, unspecified; E03.9 Hypothyroidism, unspecified; Z68.36 Body mass index [BMI] 36.0-36.9, adult; J45.909 Unspecified asthma, uncomplicated; G47.33 Obstructive sleep apnea (adult) (pediatric); M19.90 Unspecified osteoarthritis, unspecified site; Z79.51 Long term (current) use of inhaled steroids; Z79.84 Long term (current) use of oral hypoglycemic drugs; Z79.85 Long-term (current) use of injectable non-insulin antidiabetic drugs; Z79.82 Long term (current) use of aspirin; Z79.899 Other long term (current) drug therapy; Z99.89 Dependence on other enabling machines and devices; Z86.0101 Personal history of adenomatous and serrated colon polyps; F17.210 Nicotine dependence, cigarettes, uncomplicated; Z90.49 Acquired absence of other specified parts of digestive tract; Z98.890 Other specified postprocedural states; Z88.2 Allergy status to sulfonamides; Z88.5 Allergy status to narcotic agent; Z56.0 Unemployment, unspecified
CPT/HCPCS: 43239; 82947; 88305; 88313; 88342; J2003; J2704; J3010

== ENCOUNTER 2024-04-07 09:37 | Emergency (ER) | payer MEDICAID, SELFPAY ==
--- NOTE | ~2024-04-07 | XR_ITS ---
CLINICAL HISTORY: fall 2 view right knee Comparison: 10/29/2021 12:37 PM EDT: DX Findings: Bones intact. No dislocations. Components of the knee prosthesis are intact and well aligned. No significant loss of joint space, osteophytes, or erosions. No joint effusion. No or other radiopaque foreign body. There is regional arterial calcification. IMPRESSION: 1. No acute findings. This document has been electronically signed by: Louie Carreno MD on 04/07/2024 12:14:00
[2024-04-07 09:55] VITALS: BP 119/62; PULSE 82; RESP 16; TEMP 36.8; O2SAT 93; BMI 37.5
--- NOTE | 2024-04-07 12:34 | ED.FALL ---
HPI - Fall General Chief Complaint: Fall Stated Complaint: fall Time Seen by Provider: 04/07/24 12:31 Source: patient, RN notes reviewed and old records reviewed Mode of arrival: ambulatory History of Present Illness ED Provider: Eliza Woo PA-C HPI Narrative: 64-year-old female with a past medical history of asthma, COPD, JORGE on CPAP, right knee replacement presenting to the ED complaining of mechanical trip and fall over a box onto right knee this morning. Denies head trauma or LOC. Has been ambulatory since incident. Takes baby ASA, denies other anticoagulation use. Denies numbness, tingling, weakness, injury to other area. Related Data Home Medications ?Medication ?Instructions ?Recorded ?Confirmed aspirin 81 mg tablet,delayed 81 mg PO DAILY 04/08/20 03/29/24 release iwnvbzcnfo-azvuvdctbaaca-vcqocaey 1 cap PO Q4-6H PRN Migraine 04/08/20 03/29/24 50 mg-325 mg-40 mg capsule Headache cyclobenzaprine 10 mg tablet 10 mg PO TID 04/08/20 03/29/24 docusate sodium 100 mg capsule 100 mg PO BID 04/08/20 03/29/24 fluticasone propionate 50 1 spray intranasal DAILY 04/08/20 03/29/24 mcg/actuation nasal spray,suspension (Flonase Allergy Relief) hydralazine 50 mg tablet 50 mg PO TID 04/08/20 03/29/24 levothyroxine 75 mcg tablet 75 mcg PO DAILY 04/08/20 03/29/24 (Synthroid) losartan 100 mg tablet 100 mg PO DAILY 04/08/20 03/29/24 metoprolol succinate 100 mg 100 mg PO DAILY 04/08/20 03/29/24 tablet,extended release 24 hr montelukast 10 mg tablet 10 mg PO BEDTIME 04/08/20 03/29/24 (Singulair) nitroglycerin 0.4 mg sublingual 0.4 mg sublingual Q5M PRN Chest 04/08/20 03/29/24 tablet (Nitrostat) Pain polyethylene glycol 3350 17 gram 17 g PO DAILY 04/08/20 03/29/24 oral powder packet (Miralax) rosuvastatin 40 mg tablet (Crestor) 40 mg PO DAILY 04/08/20 03/29/24 topiramate 50 mg tablet 50 mg PO BID 04/08/20 03/29/24 verapamil 300 mg capsule 24hr 300 mg PO BEDTIME 04/08/20 03/29/[address],ext.release furosemide 20 mg tablet 20 mg PO BID 02/09/21 03/29/24 dicyclomine 20 mg tablet 20 mg PO BID 08/27/21 03/29/24 famotidine 40 mg tablet 40 mg PO DAILY 08/27/21 03/29/24 metformin 500 mg tablet,extended 1,000 mg PO BID 08/27/21 03/29/24 release 24 hr dulaglutide 0.75 mg/0.5 mL 0.75 mg subcut QWEEK 09/22/21 03/29/24 subcutaneous pen injector ([employer]) hydrocortisone 2.5 % topical cream 1 appl topical BID 03/11/22 03/29/24 with perineal applicator ([employer] HC) Previous Rx's ?Medication ?Instructions ?Recorded acetaminophen 650 mg 650 mg PO Q8H PRN pain #90 tabs 07/14/20 tablet,extended release (Mapap Arthritis Pain) duloxetine 60 mg capsule,delayed 60 mg PO QAM #30 caps 06/02/21 release celecoxib 200 mg capsule 200 mg PO BID #60 caps 02/09/22 albuterol sulfate 90 mcg/actuation 1 puff PO QID aSTHMA #18 grams 06/30/22 aerosol inhaler (Ventolin HFA) Walker with seat #1 ea 01/04/24 fluticasone propionate 115 2 puff PO BID for asthma #12 grams 01/29/24 mcg-salmeterol 21 mcg/actuation HFA inhaler (Advair HFA) Allergies Allergy/AdvReac Type Severity Reaction Status Date / Time codeine [CODEINE] Allergy Intermediate LOWERED Verified 04/07/24 09:56 PLATELETS atorvastatin Allergy Mild Headache Verified 04/07/24 09:56 amlodipine Allergy Unknown Unknown Verified 04/07/24 09:56 clonidine Allergy Unknown Unknown Verified 04/07/24 09:56 shellfish derived [shellfish] Allergy Unknown Unknown Verified 04/07/24 09:56 pseudoephedrine Allergy Unknown Verified 04/07/24 09:56 [From Sudafed] Review of Systems Review of Systems: Yes all other systems are reviewed and are negative Constitutional: Constitutional: Reports as per [facility] Past Medical History Attestation statement: The following information was validated with the patient. Source: old records reviewed Medical History History of myocardial infarction Nicotine dependence, cigarettes, uncomplicated Asthma with COPD Cough Breast calcification, left Obesity (BMI 30-39.9) Breast mass, right Venous insufficiency Elevated cholesterol CAD (coronary artery disease) GERD (gastroesophageal reflux disease) Arthritis Hypothyroid HTN (hypertension) Asthma Allergic rhinitis JORGE on CPAP Surgical History History of esophagogastroduodenoscopy (EGD) Hx of arthroscopic knee surgery History of total right knee replacement (10/19/17) H/O colonoscopy Family History Family History Father Prostate cancer Social History Social History Patient Tobacco Use Status: Current everyday Tobacco user Tobacco use type: Cigarette Cigarette Packs Per Day: 0.5 Cigarettes Per Day: 10 Years Smoked: (onset 15yo, x 48yrs, max 2ppd - now 1/2-3/4ppd - 50pyh) Advance Directives: No Advance Directives Information Provided: Yes Current occupational status: disabled 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 Physical Exam Vital Signs: Vital Signs: Last Vital Signs Temp 98.3 F 04/07/24 13:17 Pulse 82 04/07/24 13:17 Resp 16 04/07/24 13:17 BP 119/62 04/07/24 13:17 Pulse Ox 93 04/07/24 13:17 O2 Del Method Room Air 04/07/24 13:17 BMI result Body Mass Index 37.5 Const: General: cooperative, healthy appearing and no acute distress Orientation/consciousness: patient oriented x3 Limitations: no limitations HEENT: Head: Yes normal to inspection and Yes atraumatic Ears: hearing grossly normal bilaterally General nose exam: Normal external nose present Face and sinus: Yes normal facial exam Eyes: General: appearance normal, both eyes and all related structures EOM: EOMs intact bilaterally Neck: Neck: Yes normal visual inspection and Yes no meningeal signs Resp: Effort & Inspection: normal respiratory effort and no respiratory distress Cardio: Rate: regular rate Skin: Rashes: no rashes Wounds: no wounds Neuro: General: patient oriented x3, tone normal and no meningeal signs Cranial nerves: Yes CN's II-XII intact bilaterally Gait exam (Neuro): Normal gait present Extrem: Other: Right knee with appreciable swelling, ecchymosis, and superficial abrasion. Tender to palpation. Limited full flexion secondary to pain/swelling. Neurovascularly intact distally. Course Course Course Narrative: -1245--x-ray unremarkable > Hank wrap applied for compression/comfort Results discussed with patient including worrisome signs and symptoms and strict return precautions, and when to return to the emergency department. They verbalized understanding and feel safe for discharge at this time. Procedures Orthopedic Splinting/Casting Injury #1: Side: right Lower Extremity Injury Location: knee Lower Extremity Immobilizer: Hank wrap Medical Decision Making Medical Decision Making MDM Narrative: 64-year-old female with a past medical history of asthma, COPD, JORGE on CPAP, right knee replacement presenting to the ED complaining of mechanical trip and fall over a box onto right knee this morning. On exam vital signs stable, NAD, nontoxic appearing physical exam as noted above. Concern for fracture vs contusion/hematoma vs tendon/ligamental injury. No evidence of septic joint. Compartments soft. Unlikely DVT Plan: X-ray, Hank wrap Please refer to course for remaining clinical decision making, interpretation of labs/imaging results, and discussions with consultants and/or family members. Differential Diagnosis Differential Diagnoses: The differential diagnosis associated with the presentation includes As above Independent Interpretation I performed an independent interpretation of an: Plain X-Ray Radiology Impression Discussion of test interpretation with radiology: I have reviewed the radiologist's reading. Independent Historian Clinical information obtained from an independent historian. History obtained from or confirmed by: Other (daughter) External Record Review External record reviewed: Inpatient record, Office record, Outpatient record, Prior outpatient labs, Prior outpatient radiology, Primary care record and Outside ED record Tests considered The following testing was considered but not selected: As above Prescription Management I considered prescription management with: Pain Medication Chronic Conditions Patient?s care impacted by: Other (Asthma, COPD) Social Determinants Patient?s care significantly limited by Social Determinants of Health including: Other Social Determinant of Health Discharge Plan Discharge Clinical Impression: Injury of knee Patient Disposition: Home, Self-Care Instructions: Knee Pain (ED) Additional Instructions: Your x-ray does not show a fracture Wear Hank wrap for compression/comfort Ice and elevate Take Tylenol for pain Follow-up with your doctor If area begins to look infected, is red, is increasingly swollen, you are unable to bear weight return to the emergency department Prescriptions: No Action acetaminophen [Mapap Arthritis Pain] 650 mg tablet extended release 650 mg PO Q8H PRN (Reason: pain) Qty: 90 3RF duloxetine 60 mg capsule,delayed release(DR/EC) 60 mg PO QAM Qty: 30 0RF celecoxib 200 mg capsule 200 mg PO BID Qty: 60 3RF (DME) Walker with seat See Rx Instructions .Route .MEDSUPPLY Qty: 1 0RF Rx Instructions: As directed fluticasone propion-salmeterol [Advair HFA] 115-21 mcg/actuation HFA aerosol inhaler 2 puff PO BID Qty: 12 4RF aspirin 81 mg tablet,delayed release (DR/EC) 81 mg PO DAILY hydralazine 50 mg tablet 50 mg PO TID losartan 100 mg tablet 100 mg PO DAILY verapamil 300 mg capsule, [address] 300 mg PO BEDTIME qscoxlpdgi-hmuamorvovsnu-yguv 50-325-40 mg capsule 1 cap PO Q4-6H PRN (Reason: Migraine Headache) rosuvastatin [Crestor] 40 mg tablet 40 mg PO DAILY fluticasone propionate [Flonase Allergy Relief] 50 mcg/actuation spray,suspension 1 spray intranasal DAILY Rx Instructions: administer into each nostril polyethylene glycol 3350 [Miralax] 17 gram powder in packet 17 g PO DAILY nitroglycerin [Nitrostat] 0.4 mg tablet, sublingual 0.4 mg sublingual Q5M PRN (Reason: Chest Pain) Rx Instructions: do not exceed 3 doses per episode levothyroxine [Synthroid] 75 mcg tablet 75 mcg PO DAILY docusate sodium 100 mg capsule 100 mg PO BID topiramate 50 mg tablet 50 mg PO BID metoprolol succinate 100 mg tablet extended release 24 hr 100 mg PO DAILY montelukast [Singulair] 10 mg tablet 10 mg PO BEDTIME cyclobenzaprine 10 mg tablet 10 mg PO TID furosemide 20 mg tablet 20 mg PO BID dicyclomine 20 mg tablet 20 mg PO BID famotidine 40 mg tablet 40 mg PO DAILY metformin 500 mg tablet extended release 24 hr 1,000 mg PO BID albuterol sulfate [Ventolin HFA] 90 mcg/actuation HFA aerosol inhaler 1 puff PO QID Qty: 18 3RF hydrocortisone [[employer] HC] 2.5 % cream with perineal applicator 1 appl topical BID Trulicity 0.75 mg/0.5 mL pen injector 0.75 mg subcut QWEEK Rx Instructions: takes on Referrals: Lasha Castillo MD [Primary Care Provider] - 1 week Interventions: ED Discharge Assessment Last Done: 04/07/24 13:17 Discharge Date/Time: 04/07/24 13:17 Print Language: Maori
[2024-04-07 13:17] VITALS: BP 119/62; PULSE 82; RESP 16; TEMP 36.8; O2SAT 93
== END 2024-04-07 13:17 | disposition home or self-care (01) ==
PROVIDERS: Emergency Provider Emergency Medicine; PCP Internal Medicine
DX: S89.91XA Unspecified injury of right lower leg, initial encounter (principal); M25.561 Pain in right knee; W01.0XXA Fall on same level from slipping, tripping and stumbling without subsequent striking against object, initial encounter; Y93.89 Activity, other specified; Y92.89 Other specified places as the place of occurrence of the external cause; Y99.8 Other external cause status; F17.210 Nicotine dependence, cigarettes, uncomplicated
CPT/HCPCS: 29505; 73560; 99282; 99284

== ENCOUNTER → 2024-04-07 11:45 | Outpatient (BNV) | payer MEDICAID, SELFPAY | PROVIDERS: PCP Internal Medicine; Visit Provider Specialist | DX: M25.561 Pain in right knee (principal) | CPT/HCPCS: 73560 ==

== ENCOUNTER 2024-05-29 10:52 | Outpatient (AMB) | payer MEDICAID, SELFPAY ==
--- NOTE | 2024-05-29 11:17 | A.OFFVIS_ITS ---
Vital Signs 05/29/24 11:21 Height 5 ft 6 in Weight 232 lb BMI 37.4 Handedness Left Intake Visit Reasons: OV-ED f/u RT knee pain DOI: 04/07/24 Intake Note: Carmina is a 62 year old female who presents today for a follow up of RT ankle fracture, DOI 03/09/24. Patient reports she tripped and feel on a box when she was getting a tissue box. She mentions that her pain is through out the knee since she landed on her right knee. She states that her pain is worse when she is bending her knee. Patient hasn't tried any medication to relieve the pain. Marketing Database Coordinator Services: Marketing Database Coordinator Present ([place] ([id number])) Allergies codeine [CODEINE] Allergy (Intermediate, Verified 05/29/24 11:20) LOWERED PLATELETS atorvastatin Allergy (Mild, Verified 05/29/24 11:20) Headache amlodipine Allergy (Unknown, Verified 05/29/24 11:20) Unknown clonidine Allergy (Unknown, Verified 05/29/24 11:20) Unknown shellfish derived [shellfish] Allergy (Unknown, Verified 05/29/24 11:20) Unknown pseudoephedrine [From Sudafed] Allergy (Verified 05/29/24 11:20) Unknown HPI HPI OV-ED f/u RT knee pain DOI: 04/07/24: Details: 64-year-old female returns to the office today for pain in the right knee after she fell in Apr and developed a bump on the knee. She was seen in the ED, xrays obtained which were negative for fracture or dislocations. She states she will experience pain along the lateral aspect of the knee which extends up into the thigh. [facility] Medical History History of myocardial infarction Nicotine dependence, cigarettes, uncomplicated Asthma with COPD Cough Breast calcification, left Obesity (BMI 30-39.9) Breast mass, right Venous insufficiency Elevated cholesterol CAD (coronary artery disease) GERD (gastroesophageal reflux disease) Arthritis Hypothyroid HTN (hypertension) Asthma Allergic rhinitis JORGE on CPAP Surgical History History of esophagogastroduodenoscopy (EGD) Hx of arthroscopic knee surgery History of total right knee replacement (07/19/18) H/O colonoscopy Family History Father Prostate cancer Social History Patient Tobacco Use Status: Current everyday Tobacco user Tobacco use type: Cigarette Cigarette Packs Per Day: 0.5 Cigarettes Per Day: 10 Years Smoked: (onset 15yo, x 48yrs, max 2ppd - now 1/2-3/4ppd - 50pyh) Current occupational status: disabled 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 No joint effusion present. She has full range of motion. No deficits along the quad. Calf is supple and nontender neurovascularly intact. Assessment & Plan Assessment & Plan (1) Status post total right knee replacement: Code(s): Z96.651 - Presence of right artificial knee joint Category: Surgical (2) Contusion of right knee: Code(s): S80.01XA - Contusion of right knee, initial encounter Category: Medical Plan At this time I do not see any structural abnormalities to the joint replacement that are of concern for loosening. She should work with physical therapy to regain her strength along the quad in the hips to help stabilize the knee and resolve her discomfort. She will increase activities as tolerated but if symptoms persist or worsen she should contact our office otherwise follow up as needed. Orders: Orders PT Evaluation and Treatment Today S80.01XA - Contusion of right knee, initial encounter, Z96.651 - Presence of right artificial knee joint Medications: Refilled celecoxib 200 mg PO BID 60 caps 3RF Coding Level of Care Code Est Pt Level 3 (93304) Complex EM visit Add On G2211 Diagnoses Status post total right knee replacement Z96.651 Contusion of right knee S80.01XA
[2024-05-29 11:21] VITALS: BMI 37.4
--- OUTSIDE RECORDS SUMMARY | 2024-05-29 13:33 | XMS_ITS | Encounter Summary ---
Author Organization [email or web address] Address [address] [place] [address] Care Team Providers Care Grinder Gear Name Role Phone Lasha Marrufo MD Primary Care Provide r Reason for Visit * Reason Onset Date Comments tooth fell off partial again 11/21/2023 Encounter Details Date Type Department Care Team (Late st Contact Info) Description 11/21/2023 Telephone [facility] [address] [place] [address] Jeanne Arreola, DDS [address] [place] [address] tooth fell off partial again Social History Tobacco Use Types Packs/Day Years Used Date Smoking Tobacco: Every Day Cigarettes Passive Smoke Exposure: Current Depression Answer Date Recorded Patient Health Questionnaire-9 Score 2 07/18/2023 Patient Health Questionnaire-9 Score 2 07/18/2023 Last PHQ-9: Questionnaire Data Not on file 0 07/18/2023 Housing Stability Answer Date Recorded What is your housing situation today? I have ara urban 07/18/[address] you li ve. Do you have problems with any of the following? None of the above 07/18/2023 Food Insecurity Answer Date Recorded Within the past 12 months, y ou worried that your food would run out before you got money to buy more: Never True 07/18/2023 Within the past 12 months,th e food you bought just didn't last and you didn't have enough money to get more: Never True Transportation Answer Date Recorded In the past 12 months, has l ack of transportation kept you from medical appts, meetings, work or from getting things needed for daily living? No 07/18/2023 Utilities Answer Date Recorded In the past 12 months, has t he electric, gas, oil or water company threatened to shut off services in your home? No 07/18/2023 Depression Answer Date Recorded Patient Health Questionnaire-2 Score 0 07/18/2023 Comments Unknown Sex and Gender Information Value Date Recorded Sex Assigned at Female 01/31/2022 10:22 AM EDT Legal Sex Female 10:22 AM EDT Gender Identity Female 01/31/2022 10:22 AM EDT Sexual Orientation Straight 01/31/2022 10 :22 AM EDT documented as of this encounter Miscellaneous Notes * Telephone Encounter - Nell Terry - 11/21/2023 9:34 AM EDT Patient is looking for a denture repair appt. Her tooth that was recently repaired on partial fell off again and is looking for an appt to repair. documented in this encounter Plan of Treatment Not on file documented as of this encounter Goals Goal Patient Goal Type Associated Problems Recent Progress Patient-Stated? Author Smoking cessation General No Willa Chaparro Help patient manage nicotine dependency General No Willa Chaparro documented as of this encounter Visit Diagnoses Not on filedocumented in this encounter Additional Health Concerns Assessment Noted Time PHQ-9 Depression Total Score: 2 07/18/19 24 2:07 PM EDT documented as of this encounter Care Teams Grinder Gear Relationship Specialty Start Date End Date Lasha Marrufo MD [address] [place] [id number] PCP - General Internal Medicine 12/25/13 documented as of this encounter
--- OUTSIDE RECORDS SUMMARY | 2024-05-29 13:33 | XMS_ITS | Encounter Summary ---
Author Organization [employer] Address [address] [place] [address] Care Team Providers Care Certified Emergency Vehicle Technician Name Role Phone Lasha Marrufo MD Primary Care Provide r Reason for Visit * Reason Comments Med Refill Encounter Details Date Type Department Care Team (Late st Contact Info) Description 03/09/2022 Refill [facility] [address] [place], [place] [phone] Lasha Marrufo MD [address] [place] [address] Acute migraine (Primary Dx) Social History Tobacco Use Types Packs/Day Years Used Date Smoking Tobacco: Never Assessed Comments Unknown Sex and Gender Information Value Date Recorded Sex Assigned at Female 01/31/2022 10:22 AM EDT Legal Sex Female 10:22 AM EDT Gender Identity Female 01/31/2022 10:22 AM EDT Sexual Orientation Straight 01/31/2022 10 :22 AM EDT documented as of this encounter Plan of Treatment Not on file documented as of this encounter Visit Diagnoses Diagnosis Acute migraine- Primary documented in this encounter Care Teams Certified Emergency Vehicle Technician Relationship Specialty Start Date End Date Lasha Marrufo MD [address] [place], [place] [phone] PCP - General Internal Medicine 12/25/13 documented as of this encounter
--- OUTSIDE RECORDS SUMMARY | 2024-05-29 13:33 | XMS_ITS | Clinical Summary ---
Author Organization [facility] Address [address] [place] [address] Phone Care Team Providers Care Biology Faculty Member Name Role Phone Physician, No Pcp Primary Care Provider Unavaila ble Encounters Date Type Department Care Team Description 04/30/2024 9:30 AM EST - 04/30/2024 11:59 PM EST Hospital Encounter [facility] Xray [address] [place] [address] Dysphagia, unspecified Discharge Disposition: Home or Self Care from Last 3 Months Social History Tobacco Use Types Packs/Day Years Used Date Smoking Tobacco: Never Assessed Comments Unknown Sex and Gender Information Value Date Recorded Sex Assigned at Female 04/18/2024 1:44 PM EST Legal Sex Female 9:10 PM EST Gender Identity Female 04/18/2024 1:44 PM EST Sexual Orientation Straight 04/18/2024 1: 44 PM EST Plan of Treatment Health Maintenance Due Date Last Done Comments Breast Cancer Screening 1961 Diabetes: Annual GFR (Glomerular Filtration Rate) 1961 Diabetes: Annual Foot Exam 1971 Diabetes: Annual Retina Eye Exam 1971 Cervical Cancer Screening: Pap Smear 1982 Zoster Vaccines (1 of 2) 2011 Pneumococcal Vaccine: 50+ Years (2 of 2 - PCV) 07/02/2015 07/01/2014 Pneumococcal Vaccine: Pediatrics (0 to 5 Years) and At-Risk Patients (6 to 64 Years) (2 of 2 - PCV) 07/02/2015 07/01/2014 RSV Immunization Patients 60+ Years Old (1 - Risk 60-74 years 1-dose series) 2021 Cholesterol Screening (Lipid Panel) 04/28/2023 Colorectal Cancer Screening: Colonoscopy 04/28/2023 HIV Screening 04/28/2023 Social Influencers of Health Screening 04/28/2023 COVID-19 Vaccine ( season) 2023 06/29/2020, 06/01/2020 Diabetes: Annual Urine Albumin-Creatinine Ratio (uACR) 04/30/2024 Hypertension/CHF/CAD Annual BMP Blood Test 04/30/2024 Depression Screening 07/17/2024 07/18/2023 Diabetes: Blood Sugar Control Test (HGBA1C) 08/12/2024 02/13/2024 DTaP,Tdap,and Td Vaccines (2 - Td or Tdap) 05/23/2027 05/23/2017 Hepatitis C Screening Completed 06/29/2022 Influenza Vaccine Completed 02/13/2024, , 01/15/2020, Additional history exists HIB Vaccines Aged Out No longer eligi ble based on patient's age to complete this topic HPV Vaccines Aged Out No longer eligi ble based on patient's age to complete this topic Hepatitis A Vaccines Aged Out No long er eligible based on patient's age to complete this topic Hepatitis B Vaccines Aged Out No long er eligible based on patient's age to complete this topic IPV Vaccines Aged Out No longer eligi ble based on patient's age to complete this topic MMR Vaccines Aged Out No longer eligi ble based on patient's age to complete this topic Meningococcal ACWY Vaccine Aged Out N o longer eligible based on patient's age to complete this topic Meningococcal B Vacine Aged Out No lo nger eligible based on patient's age to complete this topic RSV Immunization Patients Under 20 months Aged Out No longer eligible based on patient's age to complete this topic Varicella Vaccines Aged Out No longer eligible based on patient's age to complete this topic Procedures Procedure Name Priority Date/Time Associated Diagnosis Comments XR ESOPHAGRAM Routine 04/30/2024 10:12 AM EST Dysphagia, unspecified from Last 3 Months Results * XR Esophagram (04/30/2024 10:12 AM EST) Anatomical Region Laterality Modality Head and Neck Radiographic Melody ging 04/30/2024 12:5 8 PM EST Impressions 05/01/2024 4:24 PM EST Moderate esophageal dysmotility, otherwise normal double contrast esophagram. -------- FINAL REPORT -------- Dictated By: Halley Fishman Dictated Date: 04/30/2024 12:58 ET Assigned Physician: Alexia العلي Reviewed and Electronically Signed By: Alexia العلي Signed Date: 05/01/2024 16:24 ET Workstation ID: [id number] Transcribed By: Self Edit Transcribed Date: 04/30/2024 13:04 ET Resident/PA/CHILD CARE TEAM LEAD: Halley Fishman Narrative 05/01/2024 4:24 PM EST FINDINGS: Double contrast esophagram performed. COMPARISON: No prior esophagram imaging HISTORY: Patient is a 64-year-old female with history of dysphagia, GERD. 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 There is an area of linear scarring along the right lung base, unchanged when compared to prior imaging from 2021. Lungs are otherwise clear. Aortic knob is calcified. Osseous structures are grossly intact. 1 view lateral soft tissue neck demonstrates no prevertebral soft tissue masses. Airway is widely patent. Effervescent crystals were administered orally. Thick and thin barium were administered orally under fluoroscopic control. Pharyngoesophagram: Rapid sequence imaging of the hypopharynx during swallowing demonstrates prompt initiation of swallowing. There is normal soft palate elevation and normal epiglottic motion. There is no laryngeal penetration or codey aspiration. There is no residual in the vallecula nor in the piriform sinuses. Thoracic esophagus: There is moderate esophageal dysmotility. Normal distensibility and mucosal pattern without evidence of ulceration, stricture or mass formation. Hiatal hernia: None Reflux: Unable to elicit 13mm Barium pill: Swallowed without difficulty. Temporary lodging of tablet at the GE junction with eventual passage into the stomach, likely secondary to dysmotility. Air Kerma: 118.30 mGy Procedure Note Alexia العلي MD - 05/01/2024 FINDINGS: Double contrast esophagram performed. COMPARISON: No prior esophagram imaging HISTORY: Patient is a 64-year-old female with history of dysphagia,GERD. 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 There is an area of linearscarring along the right lung base, unchanged when compared to priorimaging from 2021. Lungs are otherwise clear. Aortic knob is calcified.Osseous structures are grossly intact. 1 view lateral soft tissue neckdemonstrates no prevertebral soft tissue masses. Airway is widelypatent. Effervescent crystals were administered orally. Thick and thin barium wereadministered orally under fluoroscopic control. Pharyngoesophagram: Rapid sequence imaging of the hypopharynx duringswallowing demonstrates prompt initiation of swallowing. There is normalsoft palate elevation and normal epiglottic motion. There is no laryngealpenetration or codey aspiration. There is no residual in the vallecula norin the piriform sinuses. Thoracic esophagus: There is moderate esophageal dysmotility. Normaldistensibility and mucosal pattern without evidence of ulceration,stricture or mass formation. Hiatal hernia: None Reflux: Unable to elicit 13mm Barium pill: Swallowed without difficulty. Temporary lodging oftablet at the GE junction with eventual passage into the stomach, likelysecondary to dysmotility. Air Kerma: 118.30 mGy IMPRESSION: Moderate esophageal dysmotility, otherwise normal double contrastesophagram. -------- FINAL REPORT -------- Dictated By: Halley Fishman Dictated Date: 04/30/2024 12:58 ET Assigned Physician: Alexia العلي Reviewed and Electronically Signed By: Alexia العلي Signed Date: 05/01/2024 16:24 ET Workstation ID: [id number] Transcribed By: Self Edit Transcribed Date: 04/30/2024 13:04 ET Resident/PA/CHILD CARE TEAM LEAD: Halley Fishman Alberto Roth MD IMG FLUOROSCOPY PROCEDURES Carmen l Result from Last 3 Months Insurance MEDICAID - [place] Care Teams Biology Faculty Member Relationship Specialty Start Date End Date Physician, No Pcp PCP - General 04/18/24
--- OUTSIDE RECORDS SUMMARY | 2024-05-29 13:33 | XMS_ITS | Encounter Summary ---
Author Organization [employer] Address [address] [place] [address] Care Team Providers Care Anthropology And Archeology Instructor Name Role Phone Lasha Marrufo MD Primary Care Provide r Reason for Visit * Reason Onset Date Comments Chart Prep 05/09/2024 Encounter Details Date Type Department Care Team ([facility] st Contact Info) Description 05/09/2024 Telephone [facility] [address], [place] [phone] Lasha Marrufo MD [address] [place] [address] Chart Prep Social History Tobacco Use Types Packs/Day Years Used Date Smoking Tobacco: Every Day Cigarettes Passive Smoke Exposure: Current Alcohol Answer Date Recorded Frequency of Alcohol Consumption Not on file 02/13/2024 Average Number of Drinks Not on file 024 Frequency of Binge Drinking Not on file 02/01 Score 0 02/13/2024 Depression Answer Date Recorded Patient Health Questionnaire-9 [...] Recorded Patient Health Questionnaire-2 Score 0 07/18/2023 Internet Access Answer Date Recorded Internet Access Q1 Yes 02/05/2024 Internet Access Q2 Not on file 02/05/2024 Comments Unknown Sex and Gender Information Value Date Recorded Sex Assigned at Female 01/31/2022 10:22 AM EDT Legal Sex Female 10:22 AM EDT Gender Identity Female 01/31/2022 10:22 AM EDT Sexual Orientation Straight 01/31/2022 10 :22 AM EDT documented as of this encounter Miscellaneous Notes * Telephone Encounter - Flory Hyatt [place] - 05/09/2024 2:48 PM EST Chart Prep Labs: not applicable Images: not applicable Vaccines due: Covid Due, PCV20 Due, RSV in Pharmacy Due, and Shingles in pharmacy Due Referrals: Not Applicable Screenings: Colonoscopy , Foot Exam, and HIV screening Overdue care gaps: A1C, Glucose, and PHQ-9 Chart prep for upcoming appt with Dr.Esparza simon. LB documented in this encounter Plan of Treatment [...] documented as of this encounter Care Teams Anthropology And Archeology Instructor Relationship Specialty Start Date End Date Lasha Marrufo MD [address] [place] [id number] PCP - General Internal Medicine 12/25/13 documented as of this encounter
--- OUTSIDE RECORDS SUMMARY | 2024-05-29 13:33 | XMS_ITS | Encounter Summary ---
Author Organization [employer] Address [address] [place] [address] [address] [address] Care Team Providers Care Promotional Marketing Analyst Name Role Phone Lasha Marrufo MD Primary Care Provide r Reason for Visit * Reason Comments Med Refill Encounter Details Date Type Department Care Team (Late st Contact Info) Description 04/04/2023 Refill [facility] [address] [place], [place] [phone] Lasha Marrufo MD [address] [place] [phone] Social History Tobacco Use Types Packs/Day Years Used Date Smoking Tobacco: Every Day Cigarettes Comments Unknown Sex and Gender Information Value Date Recorded Sex Assigned at Female 01/31/2022 10:22 AM EDT Legal Sex Female 10:22 AM EDT Gender Identity Female 01/31/2022 10:22 AM EDT Sexual Orientation Straight 01/31/2022 10 :22 AM EDT documented as of this encounter Plan of Treatment Not on file documented as of this encounter Visit Diagnoses Not on filedocumented in this encounter Care Teams Promotional Marketing Analyst Relationship Specialty Start Date End Date Lasha Marrufo MD [address] [place], [place] [phone] PCP - General Internal Medicine 12/25/13 documented as of this encounter
--- OUTSIDE RECORDS SUMMARY | 2024-05-29 13:33 | XMS_ITS | Encounter Summary ---
Author Organization [employer] Address [address] [facility] [address] [place] [address] Care Team Providers Care Drapery Cutter Name Role Phone Lasah Marrufo MD Primary Care Provide r Reason for Visit * Reason Comments Med Refill Encounter Details Date Type Department Care Team ([facility] st Contact Info) Description 09/08/2022 Refill [facility] [address] [place], [place] [phone] Lasha Marrufo MD [address] [place], [place] [phone] Acute non intractable tension-type headache; Anxiety Social History Tobacco Use Types Packs/Day Years Used Date Smoking Tobacco: Every Day Cigarettes Comments Unknown Sex and Gender Information Value Date Recorded Sex Assigned at Female 01/31/2022 10:22 AM EDT Legal Sex Female 10:22 AM EDT Gender Identity Female 01/31/2022 10:22 AM EDT Sexual Orientation Straight 01/31/2022 10 :22 AM EDT COVID-19 Exposure Response Date Recorded In the last 10 days, have yo u been in contact with someone who was confirmed or suspected to have Coronavirus/COVID-19? No / Unsure 09/09/2022 8:41 AM EDT documented as of this encounter Plan of Treatment Not on file documented as of this encounter Visit Diagnoses Diagnosis Acute non intractable tension-type headache Anxiety Anxiety state, unspecified documented in this encounter Care Teams Drapery Cutter Relationship Specialty Start Date End Date Lasha Marrufo MD [address] [place], [place] [phone] PCP - General Internal Medicine 12/25/13 documented as of this encounter
--- OUTSIDE RECORDS SUMMARY | 2024-05-29 13:33 | XMS_ITS | Patient Health Record ---
Author Organization [facility] Address [address] [place] [address] Care Team Providers Care Bulldozer Engineer Name Role Phone Mirella Jara MD, Lasha Primary Care Provide Medardo Thornton Jr Unavailable [phone] ALLERGIES Allergen (clinical drug ingredient) Drug/Non Drug Allergy documented on EMR Reaction Allergy Type Onset Date Status codeine Codeine Sulfate Unknown Drug Allergy A ctive RESULTS Component Value Reference Range Notes Complete Blood Count no Diff Reviewed date:04/02/2024 02:01:30 PM Interpretation: Performing Lab:[facility], [address] [place] [address] Notes/Report: White Blood Count 8.0 4.8-10.8 X10*3/uL Red Blood Count 4.54 4.20-5.50 X10*6/uL Hemoglobin 12.6 12.0-16.0 g/dl Hematocrit 39.1 37.0-47.0 % Mean Corpuscular Volume 86.1 80.0-98.0 fL Mean Corpuscular Hemoglobin 27.8 27.0-33.0 pg Mean Corpuscular HGB Conc 32.2 31.0-35.0 g/dl Red Cell Distribution Width 15.1 11.0-16.0 % Platelet Count 212 160-400 X10*3/uL Mean Platelet Volume 8.6 9.4-12.3 fL NRBC Pct Auto 0.0 0.0-0.2 /100WBC NRBC Abs Auto 0.000 0.0-0.012 X10*3/uL Liver Panel Reviewed date:04/02/2024 02:01:14 PM Interpretation: Performing Lab:[facility], [address] [place] [phone] Notes/Report: Bilirubin Total 0.2 0.0-1.0 mg/dL Bilirubin Direct < 0.2 0.0-0.5 mg/dL Aspartate Amino Transferase 21 5-31 U/L Alanine Aminotransferase 22 0-31 U/L Total Protein 7.7 6.5-8.0 g/dL Albumin Level 4.1 3.5-5.0 g/dL Alkaline Phosphatase 128 39-117 U/L IRON PROFILE Reviewed date:04/02/2024 02:01:24 PM Interpretation: Performing Lab:[facility], [address] [place] [phone] Notes/Report: Iron 41 30-160 mcg/dL Total Iron Binding Capacity 335 228-428 mcg/d L Percent Iron Saturation 12 15-50 % Unsaturated Iron Binding 294 Ferritin Reviewed date:04/02/2024 02:01:49 PM Interpretation: Performing Lab:[facility], [address] [place] [phone] Notes/Report: Ferritin 11 10-250 ng/mL Liver Fibrosis Pnl Reviewed date:04/08/2024 08:30:50 AM Interpretation: Performing Lab:[facility], [address] [place] [phone] Notes/Report: Liver Fibrosis Score 0.19 Liver Fibrosis Stage F0 Liver Fibrosis Interpretation SEE NOTE no fibrosis Fibro Test Score (f) Metavir Score f>=0 and f<=0.21 : F0 (no fibrosis) f>0.21 and f<=0.27 : F0-F1 (no fibrosis) f>0.27 and f<=0.31 : F1 (minimal fibrosis) f>0.31 and f<=0.48 : F1-F2 (minimal fibrosis) f>0.48 and f<=0.58 : F2 (moderate fibrosis) f>0.58 and f<=0.72 : F3 (advanced fibrosis) f>0.72 and f<=0.74 : F3-F4 (advanced fibrosis) f>0.74 and f<=1.00 : F4 (severe fibrosis) Nec Inflam Act Score 0.04 Nec Inflam Act Grade A0 Nec Inflam Act Interpretation SEE NOTE no activity ActiTest Score (a) Metavir Score a>=0 and a<=0.17 : A0 (no activity) a>0.17 and a<=0.29 : A0-A1 (no activity) a>0.29 and a<=0.36 : A1 (minimal activity) a>0.36 and a<=0.52 : A1-A2 (minimal activity) a>0.52 and a<=0.60 : A2 (significant activity) a>0.60 and a<=0.62 : A2-A3 (significant activity) a>0.62 and a<=1.00 : A3 (severe activity) QWE-Kkqkm-6-Macroglobulin 219 106-279 mg/dL FIB-Haptoglobin 217 43-212 mg/dL FIB-Apolipoprotein A1 153 101-198 mg/dL FIB-Total Bilirubin 0.2 0.2-1.2 mg/dL FIB-GGT 119 3-65 U/L FIB-ALT 14 6-29 U/L Reference ID [id number] Footnote SEE NOTE The reliability of results is dependent on compliance with the preanalytical and analytical conditions recommended by [employer]. The tests have to be deferred for: acute hemolysis, acute hepatitis, acute inflammation, extra hepatic cholestasis. The advice of a specialist should be sought for interpretation in chronic hemolysis and Gilbert's syndrome. The test interpretation is not validated in liver transplant patients. Isolated extreme values of one of the components should lead to caution in interpreting the results. In case of discordance between a biopsy result and a test, it is recommended to seek the advice of a specialist. The causes of these discordances could be due to a flaw of the test or to a flaw in the biopsy: i.e. a liver biopsy has a 33% variability rate for one fibrosis stage. FibroTest is interpretable for chronic hepatitis B and C, alcoholic and non alcoholic steatosis. ActiTest is interpretable for chronic hepatitis B and C. The performance characteristics have been determined by [facility]. It has not been cleared or approved by the U.S. Food and Drug Administration. Performance characteristics refer to the analytical performance of the test. [employer], the associated logo, [employer] and all associated [employer] givens are the registered trademarks of [employer]. All third green party givens - (R) and (TM) - are the property of their respective owners. (C) 0790-1812 [employer]. All rights reserved. THIS TEST WAS PERFORMED AT: [facility] [address] [place] [address] TRAVIS BOO MD,PHD,TRINY SANDEEP Reflex Titer and Pattern Reviewed date:04/05/2024 02:03:11 PM Interpretation: Performing Lab:[facility], [address] [place] [phone] Notes/Report: Anti Nuclear Antibody Screen NEGATIVE NEGATIVE SANDEEP IFA is a first line screen for detecting the presence of up to approximately 150 autoantibodies in various autoimmune diseases. A negative SANDEEP IFA result suggests an SANDEEP-associated autoimmune disease is not present at this time, but is not definitive. If there is high clinical suspicion for Sjogren's syndrome, testing for anti-SS-A/Ro antibody should be considered. Anti-Kaylah-1 antibody should be considered for clinically suspected inflammatory myopathies. AC-0: Negative International Consensus on SANDEEP Patterns (https://doi.org/10.1515/c jyk-5165-0773) For additional information, please refer to http://education.[employer]/faq/UMH491 (This link is being provided for informational/ educational purposes only.) THIS TEST WAS PERFORMED AT: [facility] [address] [place] [phone] JEAN PAUL LEWIS MD Anti Nuclear Antibody Titer TNP Anti Nuclear Antibody Pattern TNP SANDEEP Titer 2 TNP SANDEEP Pattern 2 TNP SANDEEP Titer 3 TNP SANDEEP Pattern 3 TNP Mitochondrial Antibody Reviewed date:04/09/2024 03:01:22 PM Interpretation: Performing Lab:[facility], [address] [place] [phone] Notes/Report: Mitochondrial Antibodies NEGATIVE NEGATIVE The specimen was negative for cytoplasmic antibodies, however additional staining was observed suggesting the presence of Antinuclear Antibodies. Consider requesting order code 249, SANDEEP Screen, IFA with Reflex to Titer and Pattern, or order code [id number], SANDEEP Screen, IFA w/reflex Titer/Pattern, and Reflex to Multiplex 11 Ab Jarratt, if clinically indicated. THIS TEST WAS PERFORMED AT: [facility] [address] [address] JEAN PAUL LEWIS MD Mitochondrial Ab Titer TNP Smooth Muscle Antibody Reviewed date:04/09/2024 03:01:16 PM Interpretation: Performing Lab:[address] [phone] Notes/Report: Smooth Muscle Antibody 25 <20 U Reference Range: <20 U: Negative >or=20 U: Positive Antibodies recognizing actin are the main component of smooth muscle antibodies associated with auto- immune liver disease. Actin antibodies are found in approximately 75% of patients with autoimmune hepatitis (AIH) type 1, approximately 65% of patients with autoimmune cholangitis, approximately 30% of patients with primary biliary cirrhosis and approximately 2% of healthy controls. High values are closely correlated with AIH type 1. THIS TEST WAS PERFORMED AT: [facility]/[address] [address] SIGRID MOLINA MD,PHD Hepatitis A,B,C Profile Reviewed date:04/02/2024 02:01:41 PM Interpretation: Performing Lab:[facility], [address] [place] [phone] Notes/Report: Hepatitis A Antibody IgM Nonreactive Nonreactive IgM antibodies to HAV not detected; does not exclude early acute or recovered HAV infection. Hepatitis B Surface Antibody NONREACTIVE Nonreactive Nonreactive: < 8.00 mIU/mL Hepatitis B Core Antibody Nonreactive Nonreactive Hepatitis C Antibody Nonreactive Nonreactive Antibodies to HCV not detected; does not exclude early acute HCV infection. Hepatitis B Surface Antigen Negative Negative Glucose, Whole Blood Reviewed date:04/02/2024 01:59:23 PM Interpretation: Performing Lab:[facility], [address] [place] [phone] Notes/Report: Glucose, Whole Blood 106 60-115 mg/dL METER # : [id number] Pathology Reviewed date:04/05/2024 03:24:48 PM Interpretation: Performing Lab:[address] [phone] Notes/Report: REASON FOR REFERRAL No Information MEDICATIONS Medication SIG (Take, Route, Frequency, Duration) Notes Start Date End Date Status Topiramate 50 MG TAKE 1 AND 1/2 TABLE TS BY MOUTH AT BEDTIME Oral for 30 Active Celecoxib 200 MG TAKE 1 CAPSULE BY MO UTH TWICE DAILY Oral for 30 Active Trulicity 0.75 MG/0.5ML INJECT ONE PEN ( =0.75MG) SUBCUTANEOUSLY ONCE A WEEK DIRECTED Subcutaneous for 28 Active Fluticasone Propionate 50 MCG/ACT USE 2 SPRAYS IN EACH NOSTRIL EVERY DAY Nasal for 30 Active Metoprolol Succinate ER 100 MG TAKE 1 TABLET BY MOUTH EVERY EVENING Oral for 30 Active Dicyclomine HCl 20 MG 1 tablet Orally 2- 4 times a day for 30 days Active Famotidine 40 MG 1 tablet Orally ever y 12 hrs for 30 days 02/26/2019 Active Simethicone 180 MG 1 capsule after meal s and at bedtime as needed Orally Twice a day for 30 days 08/31/2023 Active ClearLax 17 GM/SCOOP 2 scoops in 8 ounce s of water Orally once a day for 30 days 05/24/2022 Active Cymbalta Active Levothyroxine Sodium Active Hydrocortisone (Perianal) 2.5 % 1 application Externally Twice a day for 30 days 03/03/2022 Active Polyethylene Glycol 3350 - 1 packet mixe d with 8 ounces of fluid Orally Once a day for 30 day(s) 02/21/2016 Active DULoxetine HCl 60 MG TAKE 1 CAPSULE BY M OUTH EVERY MORNING Oral for 30 Active Toprol XL 100 MG 1 tablet Orally Once a day Active Losartan Potassium-HCTZ 50-12.5 MG 1 tablet Orally Once a day A ctive Topamax 50 MG 3 tablet Orally daily Active hydrALAZINE HCl 25 MG 1 tablet Orally th ree x a day Active Synthroid 75 MCG 1 tablet Orally Once a day Active Verapamil HCl 80 MG 1 tablet Orally Thre e times a day Active Aspir-81 81 MG 1 tablet Orally Once a day Active hydrOXYzine HCl 25 MG TAKE 1 TABLET BY M OUTH THREE TIMES DAILY NEEDED Oral for 10 Active Magnesium Oxide 400 (240 Mg) MG TAKE 1 TABLET BY MOUTH EVERY MORNING Oral for 30 Active Aspirin Low Dose 81 MG TAKE 1 TABLET BY MOUTH EVERY MORNING Oral for 30 Active Montelukast Sodium 10 MG TAKE 1 TABLET B Y MOUTH EVERY EVENING Oral for 30 Active Duloxetine & Lidocaine-Menthol 60 & 5-3 MG & % as directed Combination Acti ve Furosemide 20 MG 1 tablet Orally Once a day for 30 day(s) Active Singulair 10 MG 1 tablet in the even ing Orally Once a day Active Pepcid 40 MG 1 Orally b.i.d. for 30 days Active Docusate Sodium 100 MG 1 capsule as need ed Orally Once a day for 30 day(s) Active Rosuvastatin Calcium 40 MG 1 tablet Oral ly Once a day for 30 day(s) Active Topiramate ER 50 MG 1 capsule Orally Onc e a day for 30 day(s) Active metFORMIN HCl ER 500 MG 1 tablet with ev ening meal Orally Once a day for 30 day(s) Active Verapamil HCl ER 300 MG 1 capsule Orally Once a day for 30 day(s) Active IMMUNIZATIONS Vaccine Route Administration Date Status Comme nts Influenza Unknown 12/02/2018 Administered Influenza Unknown 01/15/2020 Administered Influenza Unknown 01/01/2022 Administered Influenza Unknown 08/31/2023 Refused SOCIAL HISTORY Sex Assigned At : Social History Observation Description Sex Assigned At Unknown PROBLEMS Problem Type ICD Code Onset Dates Problem Status W/U Status Risk SNOMED Code Notes Problem Rectal bleeding (K62.5) Active confirmed 72499392 Problem Constipation (K59.00) Active confirmed 26118664 Problem Gastroesophageal reflux disease (K21.9) Active confirmed Gastroesophagea l reflux disease (408371038) Problem Gastroesophageal reflux disease without esophagitis (K21.9) Active confirmed 623728127 Problem Fatty liver (K76.0) Active confirmed 19 2782165 Problem Hiatal hernia (K44.9) Active confirmed 42137811 Problem Dysphagia, unspecified type (R13.10) Active confirmed 86243925 Problem Abnormal UGI series (R93.3) Active confirmed 545842978 Problem Irritable bowel syndrome with constipation (K58.1) Active confirmed 339559749 Problem GERD without esophagitis (K21.9) Active confirmed 974105870 Problem LUQ pain (R10.12) Active confirmed 3017 59583 Problem LLQ pain (R10.32) Active confirmed 3017 32405 Problem Epigastric mass (R19.06) Active confirmed 253742267 VITAL SIGNS Temperature 98.4 degrees Fahrenheit 08/31/2023 Blood pressure diastolic 00 mm Hg 03/14/2024 And is a Height 66.5 in 03/14/2024 And is a Blood pressure systolic 00 mm Hg 03/14/2024 And is a Weight 230 lbs 03/14/2024 And is a BMI 36.56 kg/m2 03/14/2024 And is a Encounters Encounter Location Date Provider Diagnosis [facility] [address] [facility] [place] [address] 06/21/2023 Medardo Delgado Jr [facility] [address] [facility] [place] [address] 10/19/2023 Medardo Delgado Jr [facility] Outpatient [address] [place] [phone] 04/02/2024 Medardo Delgado Jr Abnormal UGI series R93.3 [facility] [address] [facility] [place] [address] 08/31/2023 Medardo Delgado Jr Gastroesophageal reflux disease without esophagitis K21.9 and Constipation K59.00 [facility] [address] [facility] [place] [address] 03/14/2024 Medardo Delgado Jr Abnormal UGI series R93.3 ; Dysphagia, unspecified type R13.10 and Fatty liver K76.0 [facility] [address] [facility] [place] [address] 10/16/2023 Medardo Delgado Jr [facility] [address] [facility] [place] [address] 10/17/2023 Medardo Delgado Jr [facility] [address] [place] [address] 10/26/2023 Medardo Delgado Jr [facility] [address] [facility] [place] [address] 02/19/2024 Medardo Delgado Jr Gastroesophageal reflux disease without esophagitis K21.9 [facility] [address] [place] [address] 02/21/2024 Medardo Delgado Jr [facility] [address] [facility] [place] [address] 03/19/2024 Medardo Delgado Jr [facility] [address] [facility] [place] [address] 04/02/2024 Medardo Delgado Jr [facility] [address] [place] [address], [place] [address] 04/05/2024 Medardo Delgado Jr ASSESSMENTS Encounter Date Diagnosis Assessment Notes Treatment Notes Treatment Clinical Notes 04/02/2024 Abnormal UGI series (ICD-10 - R93.3) 08/31/2023 Constipation (ICD-10 - K59.00) 08/31/2023 Gastroesophageal ref lux disease without esophagitis (ICD-10 - K21.9) 03/14/2024 Dysphagia, unspecifi ed type (ICD-10 - R13.10) 03/14/2024 Abnormal UGI series (ICD-10 - R93.3) Endoscopy material was printed 02/19/2024 Gastroesophageal ref lux disease without esophagitis (ICD-10 - K21.9) 03/14/2024 Fatty liver (ICD-10 - K76.0) PLAN OF TREATMENT Pending Test Test Name Order Date BUN 04/13/2020 BUN 01/23/2020 CREATININE 01/23/2020 CREATININE 04/13/2020 LIVER PROFILE 03/14/2024 LIVER PROFILE 01/23/2020 LIPASE 01/23/2020 IRON + IBC (FE) 03/14/2024 FERRITIN 03/14/2024 CBC w/o DIFF 03/14/2024 CBC w/o DIFF 01/23/2020 MITOCHONDRIAL AB 03/14/2024 SMOOTH MUSCLE ANTIBODIES 03/14/2024 CT ABD & PELVIS WITH CONTRAST 01/23/2020 Liver Fibrosis Pnl 03/14/2024 SANDEEP Reflex Titer and Pattern 03/14/2024 Hepatitis A,B,C Profile 03/14/2024 Future Test Test Name Order Date COLONOSCOPY 05/02/2019 UPPER GI ENDOSCOPY 12/23/2020 UPPER GI ENDOSCOPY 03/14/2024 Next Appt Details Provider Name:Medardo vallecillo Jr, 08/29/2024 03:55:00 PM, [address], [address], [place], [address], Insurance Providers Payer Name Payer Address Payer Phone Subscriber Number Group Number Insured Name Patient Relationship to Insured Coverage Start Date Coverage End Date MEDICAID OF [employer] [address] [place] [phone] [id number] YUAN LR Self - patient is the insured MEDICAL (GENERAL) HISTORY Medical History History ICD Code hypertension obesity Hypothyroidism asthma arthritis SANDEEP + colonoscopy 06/26/19, 1 adenoma, five-yea r followup recommended Gastroesophageal reflux dise [facility], EGD/03/23, no Santos's esophagus or H. pylori. Obstructive sleep apnea type II diabetes Surgical History Surgery Date(Month/Year) breast biopsy tubal ligation cholecystectomy knee surgery-right
--- OUTSIDE RECORDS SUMMARY | 2024-05-29 13:33 | XMS_ITS | Encounter Summary ---
Author Organization [employer] Address [address] [facility] [address] [place] [address] Care Team Providers Care Double Needle Operator Lockstitch Name Role Phone Lasha Marrufo MD Primary Care Provide r Reason for Visit * Reason Comments Med Refill Encounter Details Date Type Department Care Team ([facility] st Contact Info) Description 04/29/2024 Refill [facility] [address] [place], [place] [phone] Lasha Marrufo MD [address] [place] [address] Acquired hypothyroidism; Mild intermittent asthma without complication Social History Tobacco Use Types Packs/Day Years [...] as of this encounter Visit Diagnoses Diagnosis Acquired hypothyroidism Unspecified hypothyroidism Mild intermittent asthma without complication documented in this encounter Additional Health Concerns Assessment Noted Time PHQ-9 Depression Total Score: 2 07/18/19 24 2:07 PM EDT documented as of this encounter Care Teams Double Needle Operator Lockstitch Relationship Specialty Start Date End Date Lasha Marrufo MD [address] [place] [address] PCP - General Internal Medicine 12/25/13 documented as of this encounter
--- OUTSIDE RECORDS SUMMARY | 2024-05-29 13:33 | XMS_ITS | Encounter Summary ---
Author Organization [employer] Address [address] [facility] [address] [place] [address] Care Team Providers Care Slot Operations Manager Name Role Phone Lasha Marrufo MD Primary Care Provide r Encounter Details Date Type Department Care Team ([facility] st Contact Info) Description 09/05/2022 Orders Only [facility] [address] [place], [place] [phone] Elsa Julien LPN Social History Tobacco Use Types Packs/Day Years [...] on filedocumented in this encounter Care Teams Slot Operations Manager Relationship Specialty Start Date End Date Lasha Marrufo MD [address] [place] [address] PCP - General Internal Medicine 12/25/13 documented as of this encounter
--- OUTSIDE RECORDS SUMMARY | 2024-05-29 13:33 | XMS_ITS | Encounter Summary ---
Author Organization [employer] Address [address] [facility] [address] [place] [address] Care Team Providers Care Turn Laster Name Role Phone Lasha Marrufo MD Primary Care Provide r Reason for Visit * Reason Onset Date Comments appt PA approved 12/22/2023 Encounter Details Date Type Department Care Team (Late st Contact Info) Description 12/22/2023 Telephone [facility] [address] [place] [address] Jeanne Arreola, DDS [address] [place] [address] appt PA approved Social History Tobacco Use Types Packs/Day Years [...] * Telephone Encounter - Nell Terry - 12/22/2023 11:39 AM EDT Patient called in inquiring appt for dentures. PA approved/authorization not required. Pls reach out to patient for scheduling DR documented in this encounter Plan of Treatment [...] documented as of this encounter Care Teams Turn Laster Relationship Specialty Start Date End Date Lasha Marrufo MD [address] [place] [address] PCP - General Internal Medicine 12/25/13 documented as of this encounter
--- OUTSIDE RECORDS SUMMARY | 2024-05-29 13:33 | XMS_ITS | Encounter Summary ---
Author Organization [employer] Address [address] [facility] [address] [place] [address] Care Team Providers Care Nurse'S Companion Name Role Phone Lasha Marrufo MD Primary Care Provide r Encounter Details Date Type Department Care Team ([facility] st Contact Info) Description 08/22/2022 Abstract [facility] [address] [place], [place] [phone] Lasha Marrufo MD [address] [place], [place] [phone] Social History Tobacco Use Types Packs/Day Years [...] suspected to have Coronavirus/COVID-19? No / Unsure 08/01/2022 3:53 PM EDT documented as of this encounter Plan of Treatment Not on file documented as of this encounter Procedures Procedure Name Priority Date/Time Associated Diagnosis Comments EXTERNAL BREAST BIOPSY Routine 08/17/2022 11:16 AM EDT documented in this encounter Results * External Breast Biopsy (08/17/2022 11:16 AM EDT) Anatomical Region Laterality Modality Breast N/A Mammography Narrative 08/17/2022 11:16 AM EDT Benign stereotactic biopsy of left breast us Historical Provider MD CR BI PROCEDURES Final R esult documented in this encounter Visit Diagnoses Not on filedocumented in this encounter Care Teams Nurse'S Companion Relationship Specialty Start Date End Date Lasha Marrufo MD [address] [place] [address] PCP - General Internal Medicine 12/25/13 documented as of this encounter
--- OUTSIDE RECORDS SUMMARY | 2024-05-29 13:33 | XMS_ITS | Encounter Summary ---
Author Organization [facility] Address [address] [place] [address] Care Team Providers Care Spot Man Name Role Phone Physician, No Pcp Primary Care Provider Unavaila ble Reason for Referral * Imaging (Routine) - Closed Specialty Diagnoses / Procedures Referred By Bhargavi greene Referred To Contact Radiology Diagnoses Dysphagia, unspecified Procedures XR Esophagram Alberto Roth MD [address] [address] Phone: tel: fax: [facility] Referral ID Status Reason Start Date Expiration Date Visits Re quested Visits Authorized [id number] Closed 01/20/2024 01/19/2025 1 1 Reason for Visit * Imaging (Routine) - Closed Specialty Diagnoses / Procedures Referred By Bhargavi greene Referred To Contact Radiology Diagnoses Dysphagia, unspecified Procedures XR Esophagram Alberto Roth MD [address] [address] Phone: tel: fax: [facility] Referral ID Status Reason Start Date Expiration Date Visits Re quested Visits Authorized [id number] Closed 01/20/2024 01/19/2025 1 1 Encounter Details Date Type Department Care Team (Latest Contact Info) Description 04/30/2024 9:30 AM EST - 04/30/2024 11:59 PM EST Hospital Encounter [facility] Xray [address] [place] [id number] Dysphagia, unspecified Discharge Disposition: Home or Self Care Social History Tobacco Use Types Packs/Day Years Used Date Smoking Tobacco: Never Assessed Comments Unknown Sex and Gender Information Value Date Recorded Sex Assigned at Female 04/18/2024 1:44 PM EST Legal Sex Female 9:10 PM EST Gender Identity Female 04/18/2024 1:44 PM EST Sexual Orientation Straight 04/18/2024 1: 44 PM EST documented as of this encounter Discharge Disposition Disposition Code Departure Means Destination Home or Self Care documented in this encounter Plan of Treatment Not on file documented as of this encounter Procedures Procedure Name Priority Date/Time Associated Diagnosis Comments XR ESOPHAGRAM Routine 04/30/2024 10:12 AM EST Dysphagia, unspecified documented in this encounter Results * XR Esophagram (04/30/2024 10:12 AM [...] Signed Date: 05/01/2024 16:24 ET Workstation ID: [id number] Transcribed By: Self Edit Transcribed Date: 04/30/2024 13:04 ET Resident/PA/HALF SECTION IRONER: Halley Fishman Narrative 05/01/2024 4:24 PM EST FINDINGS: Double contrast esophagram performed. COMPARISON: No prior esophagram imaging HISTORY: Patient is a 64-year-old female with history of dysphagia, GERD. Dermatology Physician radiographs: 1 view chest radiograph demonstrates cardiac [...] a 64-year-old female with history of dysphagia,GERD. Dermatology Physician radiographs: 1 view chest radiograph demonstrates cardiac [...] Signed Date: 05/01/2024 16:24 ET Workstation ID: [id number] Transcribed By: Self Edit Transcribed Date: 04/30/2024 13:04 ET Resident/PA/HALF SECTION IRONER: Halley Fishman Alberto Roth MD IMG FLUOROSCOPY PROCEDURES Carmen l Result documented in this encounter Visit Diagnoses Diagnosis Dysphagia, unspecified documented in this encounter Administered Medications Inactive Administered Medications - up to 3 most recent administrations Medication Order MAR Action Action Date Dose Rate Site barium sulfate (E-Z-DISK) tablet 700 mg 700 mg, oral, Once in imaging, Starting on Mon04/30/24 at 0945, For 1 dose, Swallow whole with 1-2 swallows of water just prior to fluoroscopic examination. Given 04/30/2024 9:46 AM EST 700 mg barium sulfate (E-Z-HD) 98 % suspension 100 mL 100 mL, oral, Once in imaging, Starting on Mon04/30/24 at 0945, For 1 dose Given 04/30/2024 9:46 AM EST 100 mL barium sulfate (E-Z-PAQUE) 96 % (w/w) suspension 100 mL 100 mL, oral, Once in imaging, Starting on Mon04/30/24 at 0945, For 1 dose Given 04/30/2024 9:46 AM EST 100 mL documented in this encounter Care Teams Spot Man Relationship Specialty Start Date End Date Physician, No Pcp PCP - General 04/18/24 documented as of this encounter
--- OUTSIDE RECORDS SUMMARY | 2024-05-29 13:34 | XMS_ITS ---
Author Organization [facility] Address [address] [place] [address] [address] [place] [address] Care Team Providers Care Processing Operator Name Role Phone Mirella Jara MD, Lasha Primary Care Provide r Medardo Ortega Jr REASON FOR VISIT abn ugi series Encounters Encounter Location Date Provider Diagnosis [facility] [address] [place] [id number] 04/02/2024 Medardo Delgado Jr Abnormal UGI series R93.3 ASSESSMENTS Encounter Date Diagnosis Assessment Notes Treatment Notes Treatment Clinical Notes 04/02/2024 Abnormal UGI series (ICD-10 - R93.3) PLAN OF TREATMENT Next Appt Details Provider Name:Medardo vallecillo Jr, 08/29/2024 03:55:00 PM, [address] [place] [address], [address], [place], [address],
--- OUTSIDE RECORDS SUMMARY | 2024-05-29 13:34 | XMS_ITS ---
Author Organization [facility] Address [address] [place] [address] Care Team Providers Care Jute Bag Cutting Machine Operator Name Role Phone Mirella Jara MD, Lasha Primary Care Provide r Jazmine Delgado Jr, Medardo Lucero [phone] REASON FOR VISIT labs Encounters Encounter Location Date Provider Diagnosis [facility] [address] [place] [address] 04/02/2024 Medardo Delgado Jr PLAN OF TREATMENT Next Appt Details Provider Name:Medardo vallecillo Jr, 08/29/2024 03:55:00 PM, [address], [address], [place], [address],
--- OUTSIDE RECORDS SUMMARY | 2024-05-29 13:34 | XMS_ITS ---
Author Organization [facility] Address [address] [place] [address] Care Team Providers Care Manager Lvn Name Role Phone Mirella Jara MD, Lasha Primary Care Provide r Jazmine Delgado Jr, Medardo Lucero REASON FOR VISIT pathology Encounters Encounter Location Date Provider Diagnosis [facility] [address] [place] [address] 04/05/2024 Medardo Delgado Jr PLAN OF TREATMENT Next Appt Details Provider Name:Medardo vallecillo Jr, 08/29/2024 03:55:00 PM, [address], [address], [place], [address],
--- OUTSIDE RECORDS SUMMARY | 2024-05-29 13:34 | XMS_ITS | Encounter Summary ---
Author Organization [employer] Address [address] [facility] [address] [place] [address] Care Team Providers Care Structural Analysis Engineer Name Role Phone Lasha Marrufo MD Primary Care Provide r Encounter Details Date Type Department Care Team ([facility] st Contact Info) Description 02/19/2024 Telephone [facility] MEDICINE [address] [place], [place] [phone] Lasha Marrufo MD [address] [place], [place] [phone] Social History Tobacco Use Types Packs/Day Years [...] documented as of this encounter Care Teams Structural Analysis Engineer Relationship Specialty Start Date End Date Lasha Marrufo MD [address] [place] [phone] PCP - General Internal Medicine 12/25/13 documented as of this encounter
--- OUTSIDE RECORDS SUMMARY | 2024-05-29 13:34 | XMS_ITS | Encounter Summary ---
Author Organization [employer] Address [address] [facility] [address] [place] [address] Care Team Providers Care Patient Financial Services Manager Name Role Phone Lasha Marrufo MD Primary Care Provide r Encounter Details Date Type Department Care Team ([facility] st Contact Info) Description 04/13/2022 Orders Only [facility] MEDICINE [address] [place] [address] Elsa Julien LPN Social History Tobacco Use [...] on filedocumented in this encounter Care Teams Patient Financial Services Manager Relationship Specialty Start Date End Date Lasha Marrufo MD [address] [place] [address] PCP - General Internal Medicine 12/25/13 documented as of this encounter
--- OUTSIDE RECORDS SUMMARY | 2024-05-29 13:34 | XMS_ITS | Encounter Summary ---
Author Organization [employer] Address [address] [facility] [address] [place] [address] Care Team Providers Care Software Implementation Project Manager Name Role Phone Lasha Marrufo MD Primary Care Provide r Encounter Details Date Type Department Care Team ([facility] st Contact Info) Description 04/06/2022 Orders Only [facility] [address] [place] [address] Eliz Adorno LPN Social History Tobacco Use Types Packs/Day [...] on filedocumented in this encounter Care Teams Software Implementation Project Manager Relationship Specialty Start Date End Date Lasha Marrufo MD [address] [place] [phone] PCP - General Internal Medicine 12/25/13 documented as of this encounter
--- OUTSIDE RECORDS SUMMARY | 2024-05-29 13:34 | XMS_ITS | Encounter Summary ---
Author Organization [employer] Address [address] [facility] [address] [place] [address] Care Team Providers Care Bookseamer Blindstitch Name Role Phone Lasha Marrufo MD Primary Care Provide r Encounter Details Date Type Department Care Team ([facility] st Contact Info) Description 08/04/[address] [facility] MEDICINE [address] [place], [place] [phone] Lasha Marrufo MD [address] [place], [place] [phone] Social History Tobacco Use Types Packs/Day Years [...] Procedure Name Priority Date/Time Associated Diagnosis Comments MAMMOGRAPHY Routine 08/01/2022 COLONOSCOPY Routine 06/26/2019 documented in this encounter Results * (ABNORMAL) Mammography (08/01/2022) Mammogram Birads 0 Anatomical Region Laterality Modality Other 08/01/2022 Narrative 08/01/2022 2:10 PM EDT Birads 0- recommended additional imaging Historical Provider HEALTH MAINTENANCE Final Result * Hm Colonoscopy (06/26/2019) Colonoscopy Normal Normal 06/26/2019 Narrative Irene Lu - 06/26/2019 2:53 PM EDT Recommended 5 year follow up ( see scanned notes) Historical Provider HEALTH MAINTENANCE Edited Result - Final documented in this encounter Visit Diagnoses Not on filedocumented in this encounter Care Teams Bookseamer Blindstitch Relationship Specialty Start Date End Date Lasha Marrufo MD [address] [place] [id number] PCP - General Internal Medicine 12/25/13 documented as of this encounter
--- OUTSIDE RECORDS SUMMARY | 2024-05-29 13:34 | XMS_ITS | Clinical Summary ---
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 Active topiramate 50 MG tablet Take 1 tablet by mouth at bed time. Active hydrOXYzine HCl (Atarax) 25 MG tabletIndications :Anxiety TAKE 1 TABLET BY MOUTH THREE TIMES DAILY NEEDED 30 tablet 3 023 Active Blood Glucose Monitoring Suppl ([facility] Blood Glucose) w/Device kitIndications:Ty pe 2 diabetes mellitus without complication, without long-term current use of insulin ([facility]) 1 kit 2 times daily. 1 kit 023 Active glucose blood test stripIndications: Type 2 diabetes mellitus without complication, without long-term current use of insulin (CMS/[facility]) 1 each by Other route 2 times daily. 100 each 12 023 Active fluticasone (Flonase) 50 MCG/ACT nasal sprayIndications: Seasonal allergies INHALE 2 SPRAYS IN EACH NOSTRIL ONCE DAILY 48 g 023 Active Ventolin HFA 108 (90 Base) MCG/ACT inhaler INHALE 1 PUFF FOUR TIMES DAILY FOR ASTHMA 023 Active verapamil ER (Verelan PM) 300 MG 24 hr capsule TAKE 1 CAPSULE BY MOUTH EVERYDAY AT NOON 023 Active rosuvastatin (Crestor) 40 MG tablet Take 40 mg by mouth at bedtime. Active metoprolol succinate XL (Toprol-XL) 100 MG 24 hr tablet Take 100 mg by mouth at bedtime. Active losartan (Cozaar) 100 MG tablet TAKE 1 TABLET BY MOUTH EVERYDAY AT NOON Active dicyclomine (Bentyl) 20 MG tablet TAKE 1 TABLET BY MOUTH FOUR TIMES DAILY (TAKE 1 TABLET BY MOUTH EVERY 2 TO 4 TIMES PER DAY) Active docusate sodium (Colace) 100 MG capsule TAKE 1 CAPSULE BY MOUTH TWICE DAILY IN THE MORNING AND IN THE EVENING Active famotidine (Pepcid) 40 MG tablet TAKE 1 TABLET BY MOUTH TWICE DAILY IN THE MORNING AND IN THE EVENING Active Advair HFA 115-21 MCG/ACT inhaler INHALE 2 PUFFS BY MOUTH TWICE DAILY FOR FOR ASTHMA / FOR COUGH RINSE MOUTH AFTER USING. Active furosemide (Lasix) 40 MG tablet Take 40 mg by mouth in the morning. Active hydrALAZINE (Apresoline) 50 MG tablet TAKE 1 TABLET BY MOUTH THREE TIMES DAILY IN THE MORNING, AT NOON, AND IN THE EVENING (PUEDE TIM MERRICK TABLETA ADICIONAL SI EL PRESION ATERIAL ES ALTO) Active TRUEplus Lancets 33G [facility] TEST BLOOD SUGAR TWICE DAILY Active magnesium oxide (Mag-Ox) 400 (240 Mg) MG tablet Take 400 mg by mouth in the morning. Active trospium (Sanctura) 20 MG tablet TAKE 1 TABLET BY MOUTH EVERY DAY TOMELA ALGUNAS HORAS ANTES DE DORMIR Active ipratropium-albut saray (Duo-Neb) 0.5-2.5 mg/3 mL nebulizer solution INHALE 1 AMPULE USING A NEBULIZER FOUR TIMES DAILY NEEDED FOR FOR WHEEZING AND NO FOR COUGH 90 mL 3 Active metroNIDAZOLE (Metrogel) 0.75 % vaginal gel One applicatorful twice a week for 12 weeks. Start after completing oral metronidazole 70 g 4 Active Simethicone Ultra Strength 180 MG capsule TAKE 1 CAPSULE BY MOUTH THREE TIMES DAILY AFTER MEALS AND AT BEDTIME NEEDED Active metFORMIN XR (Glucophage-XR) 500 MG 24 hr tablet TAKE 2 TABLETS BY MOUTH TWICE DAILY IN THE MORNING AND IN THE EVENING 360 tablet 1 Active DULoxetine (Cymbalta) [address] capsule TAKE 1 CAPSULE BY MOUTH EVERY MORNING 30 capsule 5 024 Active polyethylene glycol, PEG, 3350 (HM ClearLax) 17 GM/SCOOP powder MIX 2 SCOOP IN 8 OUNCES OF WATER AND DRINK ONCE DAILY 510 g 3 024 Active Trulicity 0.75 MG/0.5ML solution auto-injectorIndi cations:Type 2 diabetes mellitus without complication, unspecified whether care home insulin use ([facility]) INJECT ONE PEN (=0.75MG) SUBCUTANEOUSLY ONCE A WEEK DIRECTED 2 mL 2 025 Active butalbital-acetam inophen-caffeine 50-325-40 MG tabletIndications :Acute non intractable tension-type headache TAKE 1 TABLET BY MOUTH AT ONSET OF FOR HEADACHE. MAY REPEAT IN 12 HOURS NEEDED 20 tablet 025 Active cyclobenzaprine (Flexeril) 5 MG tabletIndications :Spasm of muscle TAKE 1 TABLET BY MOUTH THREE TIMES DAILY NEEDED FOR MUSCLE SPASMS 30 tablet 025 Active levothyroxine (Synthroid, Levoxyl) 75 MCG tabletIndications :Acquired hypothyroidism TAKE 1 TABLET BY MOUTH EVERY MORNING 90 tablet 1 025 Active montelukast (Singulair) 10 MG tabletIndications :Mild intermittent asthma without complication TAKE 1 TABLET BY MOUTH EVERY EVENING 90 tablet 1 025 Active levothyroxine (Synthroid, Levoxyl) 75 MCG tabletIndications :Acquired hypothyroidism TAKE 1 TABLET BY MOUTH EVERY MORNING 90 tablet 1 024 2024 Discontinued montelukast (Singulair) 10 MG tabletIndications :Mild intermittent asthma without complication TAKE 1 TABLET BY MOUTH EVERY EVENING 90 tablet 1 024 2024 Discontinued Active Problems Problem Noted Date Diagnosed Date Right knee pain 04/18/2024 Preventative health care 07/18/2023 Assessment & Plan (10/12/2023 11:21 AM EDT): Mammogram: 08/2023 Normal Pap Smear: NL 09/2021 will need a repeat [id number] Colonoscopy: 06/2019 Dr Delgado, Tubular adenoma Vaccines: Td Pt claims she had one in [place] in 2013. Assessment & Plan (07/18/2023 1:58 PM EDT): Mammogram: 04/12/2023 Normal Pap Smear: NL 09/2021 will need a repeat [id number] Colonoscopy: 06/2019 Dr Delgado, Tubular adenoma Vaccines: Flu shot Td Pt claims she had one in [place] in 2013. Abdominal wall hernia 07/18/2023 Assessment & Plan (02/13/2024 11:43 AM EST): Pt with c/o abdominal discomfort on her upper abdomen, on exam suggestive of abdominal diastasis Ct abdomen done 10/03/2023. 1. A significant abdominal wall hernia is not seen. There is a tiny periumbilical hernia containing only fat. 2. Incidental note made of an enlarged fatty liver, mild splenomegaly and cholecystectomy. Assessment & Plan (10/12/2023 9:29 AM EDT): Pt with c/o abdominal discomfort on her upper abdomen, on exam suggestive of abdominal diastasis Ct abdomen done 10/03/2023 report pending Assessment & Plan (07/18/2023 2:16 PM EDT): Pt with c/o abdominal discomfort on her upper abdomen, on exam suggestive of abdominal diastasis Plan: Ct abdomen Oropharyngeal dysphagia 07/18/2023 Assessment & Plan (02/13/2024 11:44 AM EST): Pt c/o this for close to a year barium Swallow showed: Delayed swallow mechanism with pooling of contrast in the vallecula and piriform sinuses. No aspiration. 2. Mildly disorganized esophageal peristalsis. 3. There is mild to moderate smooth narrowing of the GE junction, findings possibly representing achalasia versus a benign stricture. 4. Small type I hiatal hernia. 5. Moderate gastroesophageal reflux. 6. Thickened gastric rugal folds that suggests gastritis. Patient was referred back to Dr. Danny GREENWOOD for EGD. Pt tells me she has appointment in March Patient was referred ENT evaluation ( smoker ). She was seen 11/03/2023 laryngoscopy was normal Assessment & Plan (10/12/2023 11:29 AM EDT): Pt c/o this for close to a year barium Swallow showed: Delayed swallow mechanism with pooling of contrast in the vallecula and piriform sinuses. No aspiration. 2. Mildly disorganized esophageal peristalsis. 3. There is mild to moderate smooth narrowing of the GE junction, findings possibly representing achalasia versus a benign stricture. 4. Small type I hiatal hernia. 5. Moderate gastroesophageal reflux. 6. Thickened gastric rugal folds that suggests gastritis. Plan: Referred back to Dr. Danny GREENWOOD for EGD Patient was referred ENT evaluation ( smoker ) Assessment & Plan (07/18/2023 2:18 PM EDT): Pt c/o this for close to a year Plan: barium Swallow, ENT evaluation Moderate persistent asthma 04/04/2023 Assessment & Plan (02/13/2024 11:40 AM EST): Under the care of Ski [facility] Unfortunately continues to smoke, not interested in quitting Discussed with her the risk of smoking Obstructive sleep apnea syndrome 09/28/2022 Tubular adenoma of colon 09/28/2022 Assessment & Plan (07/18/2023 1:55 PM EDT): Pt underwent a Colonoscopy by Dr Delgado june 2019 that showed a Tubular adenoma, will need a repeat in 2024 Type 2 diabetes mellitus without complication Assessment & Plan (02/13/2024 11:45 AM EST): Pt here for a f/u regarding her Diabetes DM controlled Hgb A1c 02/13/2024: 6.2 Pt is currently on Metformin XR 500 mg 2 tabs po BID and Trulicity 0.75 q week Eye exam ordered Microalbumin ordered Pt on an LEXII inhibitor/ARB Foot check risk if zero On Asa 81 mg po daily Plan: Continue current regimen Pt advised to: adhere to diabetic diet check your blood sugars regularly check your feet on a daily basis. f/u with me in 3 months Assessment & Plan (10/12/2023 9:30 AM EDT): Pt here for a f/u regarding her Diabetes DM controlled Hgb A1c 10/12/2023: from 6.1 Pt is currently on Metformin XR 500 mg 2 tabs po BID and Trulicity 0.75 q week Eye exam ordered Microalbumin ordered Pt on an LEXII inhibitor/ARB Foot check risk if zero On Asa 81 mg po daily Plan: Continue current regimen Pt advised to: adhere to diabetic diet check your blood sugars regularly check your feet on a daily basis. f/u with me in 3 months Assessment & Plan (07/18/2023 2:10 PM EDT): Pt here for a f/u regarding her Diabetes DM controlled Hgb A1c 07/18/2023: 6.1 Pt is currently on Metformin XR 500 mg 2 tabs po BID and Trulicity 0.75 q week Eye exam ordered Microalbumin ordered Pt on an LEXII inhibitor/ARB Foot check risk if zero On Asa 81 mg po daily Plan: Continue current regimen Pt advised to: adhere to diabetic diet check your blood sugars regularly check your feet on a daily basis. 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 Most recent lipid profile from: 08/24/2023 Shows Lab Results Component Value Date TRIG 148 08/24/2023 TRIG 210 (H) 06/29/2022 CHOL 113 08/24/2023 LDLCHOLCAL 51 08/24/2023 HDL 33 (L) 08/24/2023 On a regimen of Rosuvastatin to 40 mg po q pm . advised to try to adhere to a low cholesterol diet, counseled and educated about diet and exercise, Patient encouraged to come up with a personal goal for weight loss. Assessment & Plan (07/18/2023 1:53 PM EDT): Here for a f/u Patient with elevated lipids. Most recent lipid profile from: 05/11/2021 shows a total cholesterol of: 140 triglycerides of: 246 HDL of: 29 and LDL of: 77 . Will repeat Lipid profile On a regimen of Rosuvastatin to 40 mg po q pm . advised to try to adhere to a low cholesterol diet, counseled and educated about diet and exercise, Patient encouraged to come up with a personal goal for weight loss. Smoker 01/17/2014 Assessment & Plan (02/13/2024 11:47 AM EST): Still smoking 1-15 cigarrettes Chest x-ray 08/24/2023 showed: Streaky opacities in bilateral lung bases may reflect atelectasis versus evolving infectious/inflammatory etiology. Repeat Chest x-ray 10/12/2023 normal Assessment & Plan (10/12/2023 11:23 AM EDT): Still smoking 1-15 cigarrettes Chest x-ray 08/24/2023 showed: Streaky opacities in bilateral lung bases may reflect atelectasis versus evolving infectious/inflammatory etiology. Plan: Repeat Chest x-ray to ensure resolution. Pt asymptomatic Hypertension 09/23/2013 Assessment & Plan (02/13/2024 11:38 AM EST): Patient here for a f/u BP currently controlled on a regimen of: Lasix 20mg po daily, Losartan 100 mg po BID, Toprol XL 100 mg po daily, Verapamil 300 mg po qhs and Hydralazine 50 mg po TID Norvasc was dced due to leg edema Most recent electrolytes, Bun and Creatinine done on: 08/24/2023 were within normal limits. Plan: continue current regimen patient advised to adhere to a low sodium diet, encouraged about medication compliance, counseled about weight loss. Assessment & Plan (10/12/2023 9:29 AM EDT): Patient here for a f/u BP currently controlled on a regimen of: Lasix 20mg po daily, Losartan 100 mg po BID, Toprol XL 100 mg po daily, Verapamil 300 mg po qhs and Hydralazine 50 mg po TID Norvasc was dced due to leg edema Most recent electrolytes, Bun and Creatinine done on: 08/24/2023 were within normal limits. Plan: continue current regimen patient advised to adhere to a low sodium diet, encouraged about medication compliance, counseled about weight loss. Assessment & Plan (07/18/2023 1:53 PM EDT): Patient here for a f/u BP currently controlled on a regimen of: Lasix 20mg po daily, Losartan 100 mg po BID, Toprol XL 100 mg po daily, Verapamil 300 mg po qhs and Hydralazine 50 mg po TID Norvasc was dced due to leg edema Most recent electrolytes, Bun and Creatinine done on: 06/29/2022 were within normal limits. Plan: continue current regimen patient advised to adhere to a low sodium diet, encouraged about medication compliance, counseled about weight loss. Hypothyroidism 09/23/2013 Assessment & Plan (10/12/2023 9:30 AM EDT): Here for a f/u Most recent TSH 08/24/2023 was within normal range On Synthroid 75 mcg po daily. Assessment & Plan (07/18/2023 1:54 PM EDT): Here for a f/u Most recent TSH 05/11/2021 was within normal range On Synthroid 75 mcg po daily. Class 2 obesity 09/23/2013 Assessment & Plan (10/12/2023 9:33 AM EDT): Patient has been counseled and educated about diet and exercise. Personal goal of weight loss discussedPatient has comorbidity of: DM Resolved Problems Problem Noted Date Diagnosed Date Resolved Date Advanced atrophic nonexudati ve age-related macular degeneration with subfoveal involvement 09/27/2022 09/27/2022 Encounters Date Type Department Care Team Description 05/09/2024 Telephone [facility] [address] [facility] [place] [address] Lasha Marrufo MD Chart Prep 04/29/2024 Refill [facility] [address] [place] [address] Lasha Marrufo MD Acquired hypothyroidism; Mild intermittent asthma without complication 04/23/2024 Telephone [facility] [address] [facility] [place] [address] Lasha Marrufo MD Error (VOID this visit) 04/18/2024 Telephone [facility] [address] [place] [address] Lasha Marrufo MD No Show 04/15/2024 Refill [facility] [address] [facility] [place] [address] Lasha Marrufo MD Acute non intractable tension-type headache; Spasm of muscle 04/09/2024 Refill [facility] [address] [place] [address] Halie Samuel MD Type 2 diabetes mellitus without complication, unspecified whether care home insulin use ([facility]) 04/08/2024 Telephone [facility] [address] [facility] [place] [address] Lasha Marrufo MD 04/05/2024 Refill [facility] [address] [place], [place] [id number] Lasha Marrufo MD Spasm of muscle; Acute non intractable tension-type headache 04/02/2024 Orders Only GENERIC EXTERNAL DATA DEPARTMENT Provider, Generic External Data 03/08/2024 Refill [facility] [address] [place], [place] [id number] Lasha Marrufo MD Type 2 diabetes mellitus without complication, unspecified whether care home insulin use ([facility]) from Last 3 Months Immunizations Name Administration Dates Next Due Influenza Injectable Quadriv alant Preservative Free IIV4 MDCK 01/15/2020 Influenza injectable quadriv alent IIV4 with preservative 02/01/2018 Influenza injectable quadriv alent preservative free 02/15/2022,01/17/2019,02/16/2017,12/21,01/06/2015 Influenza, IIV3, injectable 01/17/2014 Influenza, seasonal, injecta ble, preservative free 02/13/2024 Pneumococcal Polysaccharide PPSV23 07/01/2014 Tdap 05/23/2017 Family History Medical History Relation Name Comments Uterine cancer Mother Breast cancer Sister Uterine cancer Sister Relation Name Status Comments Mother Sister Social History Tobacco Use Types Packs/Day Years Used Date Smoking Tobacco: Every Day Cigarettes Passive Smoke Exposure: Current Tobacco Cessation:Ready to Q uit: Not Asked; Counseling Given: Not Answered Alcohol Answer Date Recorded Frequency of Alcohol [...] is your housing situation today? I have [facility] 07/18/[address] you [...] Orientation Straight 01/31/2022 10 :22 AM EDT Last Filed Vital Signs Vital Sign Reading Time Taken Comments Blood Pressure 134/71 02/13/2024 11:13 AM EST Pulse 81 02/13/2024 11:13 AM EST Temperature 36.1 ??C (96.9 ??F) 02/13/2024 11:[address] Respiratory Rate 21 02/13/2024 11:13 AM EST Oxygen Saturation 93% 10/12/2023 11:11 AM EDT Inhaled Oxygen Concentration - - Weight 106 kg (232 lb 12.8 oz) 02/13/2024 11:13 AM EST Height 165.9 cm (5' 5.31 ) 02/13/2024 11:[address] Body Mass Index 38.37 02/13/2024 11:13 AM EST Plan of Treatment Health Maintenance Due Date Last Done Comments CT Colonography 1960 Dental Prophylaxis 1961 FIT DNA/Cologuard 1960 FIT 1960 FOBT 1960 HIV Screening 1960 Sigmoidoscopy 1960 Diabetes: Foot Exam 1971 Zoster Vaccines (1 of 2) 2011 Dental X-Ray: Bitewings 02/26/2015 02/25/2014 Pneumococcal Vaccine: 50+ Years (2 of 2 - PCV) 07/02/2015 07/01/2014 RSV Patients and Patients Aged 60 years or older (1 - Risk 60-74 years 1-dose series) 2021 Diabetes: Urine Protein Screening 06/30/2023 06/29/2022 COVID-19 Vaccine ( - season) 2023 06/29/2020, 06/01/2020 Dental Oral Exam 04/12/2024 10/10/2023, 02/25/2014 Colonoscopy 06/25/2024 06/26/2019 Colorectal Cancer Screening 06/25/2024 Depression Screening 07/17/2024 07/18/2023, 07/18/19 Diabetes: Hemoglobin A1C 08/12/2024 024, 07/18/2023, 07/23/2021 Lipid Panel 08/23/2024 08/24/2023, 06/02, 05/11/2021, Additional history exists Mammogram 08/23/2024 08/24/2023, 04/03, 08/17/2022, Additional history exists Eye Exam 09/09/2024 09/09/2022, 12/2022, 09/09/2022, Additional history exists Pap Smear 09/27/2024 09/27/2021 Tobacco Screening 01/10/2025 01/11/2024 Alcohol/Substance Use Screening 02/12/2025 02/13/2024 SDOH Screening 02/12/2025 02/13/2024 Cervical Cancer Screening 09/27/2026 HPV/Cotest 09/27/2026 09/27/2021 Dental X-Ray: Full Mouth 10/10/2026 10/10/2023, 02/02 DTaP/Tdap/Td Vaccines (2 - Td or Tdap) 05/23/2027 [...] patient's age to complete this topic Meningococcal Vaccine Aged Out No julieth ramez eligible based on patient's age to complete this topic RSV under 20 months Aged Out No longe r eligible based on patient's age to complete this topic Rotavirus Vaccines Aged Out No longer eligible based on patient's age to complete this topic Goals Goal Patient Goal Type Associated Problems Recent Progress Patient-Stated? Author Smoking cessation General No Willa Chaparro Help patient manage nicotine dependency General No Willa Chaparro Procedures Procedure Name Priority Date/Time Associated Diagnosis Comments XR KNEE 1-2 VIEWS RIGHT Routine 04/07/2024 12:14 PM EST HEMATOXYLIN AND EOSIN STAIN Routine 04/02/2024 9:59 AM EST GLUCOSE, WHOLE BLOOD Routine 04/02/2024 9:19 AM EST POCT GLYCOSYLATED HEMOGLOBIN (HGB A1C) Routine 02/13/2024 11:13 AM EST Type 2 diabetes mellitus without complication, without long-term current use of insulin (CMS/HCC) PANORAMIC RADIOGRAPHIC IMAGE Routine 10/10/2023 11:00 AM EDT Encounter for dental examination Edentulism PERIODIC ORAL EVALUATION - ESTABLISHED PATIENT Routine 10/10/2023 11:00 AM EDT Encounter for dental examination Edentulism BI MAMMOGRAM SCREENING TOMOSYNTHESIS BILATERAL Routine 08/24/2023 10:15 AM EDT LIPID PANEL WITH REFLEX TO DIRECT LDL Routine 08/24/2023 8:30 AM EDT Type 2 diabetes mellitus without complication, without long-term current use of insulin (CMS/HCC) ALBUMIN, RANDOM URINE W/CREATININE Routine 06/29/2022 12:01 PM EDT HEPATITIS C AB W/REFL TO HCV RNA, QN, PCR Routine 06/29/2022 9:03 AM EDT THINPREP IMAGING PAP AND HPV MRNA E6/E7 WITH REFLEX TO HPV 16,18/45 Routine 09/27/2021 9:43 AM EDT HM COLONOSCOPY Routine 06/26/2019 INTRAORAL - COMPLETE SERIES OF RADIOGRAPHIC IMAGES Routine 02/25/2014 12:00 AM EST from Last 3 Months or Most Recently Relevant to Health Maintenance Results * XR Knee 1-2 Views Right (04/07/2024 12:14 PM EST) Anatomical Region Laterality Modality Lower Extremities, Knee Right Radiogra phic Imaging 04/07/2024 12:1 4 PM EST Narrative 04/07/2024 12:15 PM EST ? [facility] ?[address] ?[place] [address] ?XRay Report ? Signed ? Patient: Arinana Pineda ?MR#: [id number] ?? [id number] ? : 1960 ?Acct:[id number] ? Age/Sex: 64 / F ?ADM Date: 04/07/24 ? Loc: HO.ED ? Attending Dr: ? Ordering Physician: Generic ED Physician ?? Date of Service: 04/07/24 ?? Procedure(s): XR knee RT 2V ?? Accession Number(s): [id number] ? cc: Lasha Castillo MD; Generic ED Physician ? CLINICAL HISTORY: fall ? 2 view right knee ? Comparison: 10/29/2021 12:37 PM EDT: DX ? Findings: ?? Bones intact. No dislocations. ?? Components of the knee prosthesis are intact and well aligned. ?? No significant loss of joint space, osteophytes, or erosions. ?? No joint effusion. ?? No or other radiopaque foreign body. ?? There is regional arterial calcification. ? IMPRESSION: ?? 1. No acute findings. ? This document has been electronically signed by: Louie Carreno MD on ?? 04/07/2024 12:14:00 ? Dictated By: ?Louie Carreno MD ? Signed By: ?<Electronically signed by Louie Carreno MD in OV> ?04/07/241213 ? DD/ 1214 ? TD/TT: 04/07/24 1214 ? 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 Procedure Note Clifton Sy - 04/07/2024 [id number] [place] [address] XRay Report Signed Patient: Arianna Pineda EMR#: [id number] : 1960cct:[id number] Age/Sex: 64 / FADM Date: 04/07/24 Loc: HO.ED Attending Dr: Ordering Physician: Generic ED Physician Date of Service: 04/07/24 Procedure(s): XR knee RT 2V Accession Number(s): [id number] cc: Lasha Castillo MD; Generic ED Physician CLINICAL HISTORY: fall 2 view right knee Comparison: 10/29/2021 12:37 PM EDT: DX Findings: Bones intact. No dislocations. Components of the knee prosthesis are intact and well aligned. No significant loss of joint space, osteophytes, or erosions. No joint effusion. No or other radiopaque foreign body. There is regional arterial calcification. IMPRESSION: 1. No acute findings. 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 : 1960 Unit#: [id number] ?? Attend Dr: Medardo Delgado MD ?Re04/02/24 ?Status: DEP SDC ? Location: HO.SSS ?Disch: ? ----- ------- SPEC : [id number] ? RECD: 04/02/24-1023 ? STATUS: ??SOUT ? REQ NUM: [id number] ? COURTNEY: 04/02/24-958 ? SUBM DR: Medardo Delgado MD ? ENTERED: ??04/02/24-5 ?SP TYPE: Surgical ? OTHR DR: Lasha Castillo MD ?? ORDERED: ??HE Stain/9, Gross Micro L4/3, IHC, Special st. 2, H. pylori, AB/PAS ? Diagnosis ?? A. ??Duodenum, biopsy: ??Duodenal mucosa with preserved villi and no specific change. ? B. ??Gastric antrum, biopsy: ??Chronic gastritis with mild activity; negative for H. ?? pylori, ??intestinal metaplasia and dysplasia. ? C. ??Esophagogastric junction, biopsy: ??Squamocolumnar mucosa with mild chronic ?? inflammation; negative for intestinal metaplasia and dysplasia. ?Clinical History Pre-Op Dx: ??Abnormal findings on diagnostic imaging of other parts of digestive tract Post-Op Dx: Normal ?Microscopic Description Microscopic sections reviewed. ??Immunostain for H. pylori on B is negative. ??AB/PAS on C is negative for intestinal metaplasia. ??Controls stain appropriately. ? Material Received ?? A. Duodenum bx ?? B. Antral bx ?? C. EG junction bx ? Gross Description Received in three parts. Part A: ??Received in formalin labeled ?duodenum bx? are 3 araujo-pink irregular tissue fragments ranging from 0.2-0.35 cm, submitted in toto in a cassette labeled A. Part B: ??Received in formalin labeled ?antral bx? are 2 grullon-araujo rectangular tissue fragments measuring 0.3 and 0.4 cm, submitted in toto in a cassette labeled B. Part C: ??Received in formalin labeled ?EG junction bx? are 4 grullon- white and araujo-pink irregular tissue fragments ranging from 0.15-0.25 cm, submitted in toto in a cassette labeled C. CEDS Special studies ordered and performed: Immunostain for H. pylori on B1; AB/PAS stains on C1. ? CONTINUED ON NEXT PAGE ----- ------- Name: Arianna Pineda ?Age/Sex: 64/F ? : 1960 Unit#: [id number] ?? Attend Dr: Medardo Delgado MD ?Re04/02/24 ?Status: DEP SDC ? Location: HO.SSS ?Disch: ? ----- ------- SPEC : [id number] ? RECD: 04/02/24-1024 ? STATUS: ??SOUT ? REQ NUM: [id number] ? COURTNEY: 04/02/24-958 ? SUBM DR: Medardo Delgado MD ? ENTERED: ??04/02/24-1034 ?SP TYPE: Surgical ? OTHR DR: Lasha Castillo MD ?? ORDERED: ??HE Stain/9, Gross Micro L4/3, IHC, Special st. 2, H. pylori, AB/PAS ? Copies To: ?? Medardo Delgado MD ?? [facility] ?? [address] ?? [place] [address] ?? [phone] ?? Lasha Castillo MD ?? [facility] ?? [address] ?? [place] [address] ?? [phone] ----- ------- Signed (signature on file) Kelly Ochoa 04/05/24 1257 ? ----- ------- ? END OF REPORT ? us Generic External Data Provider LAB BLOOD ORDERAB LES Final Result Performing Organization Address City/[facility]/ZIP Co de Phone Number [facility] [address] [place] [phone] * Glucose, Whole Blood (04/02/2024 9:19 AM EST) [facility] Glucose, Whole Blood 106 60 - 115 mg/dL [facility] Comment:METER #: [id number] 04/02/2024 9:19 AM EST 04/02/2024 9:22 AM EST us Generic External Data Provider LAB BLOOD ORDERAB LES Final Result Performing Organization Address [facility] Co de Phone Number [facility] [address] [place] [address] [phone] * (ABNORMAL) POCT glycosylated hemoglobin (Hgb A1c) (02/13/2024 11:13 AM EST) Hemoglobin A1C 6.2(A) 4.0 - 6.0 % QC Media Lot # [id number] Lot# Expiration Date Blood Capillary blood specimen / Unknown 02/13/2024 11:13 AM EST us Lasha Jara MD POINT OF CARE TEST EN TER/EDIT ORDERABLES Final Result * BI Mammogram Screening Tomosynthesis Bilateral (08/24/2023 10:15 AM EDT) Anatomical Region Laterality Modality Breast Bilateral Mammography 08/24/2023 10:1 5 AM EDT Narrative 09/03/2023 7:42 PM EDT ? [facility] [place] ? [address] ?[place] [address] ? Mammography Report ? Signed ? Patient: Arianna Pineda ?MR#: [id number] ?? [id number] ? : 1960 ?Acct:[id number] ? Age/Sex: 63 / F ?ADM Date: // ? Loc: HO.MAMMO ? Attending Dr: Lasha Castillo MD ? Ordering Physician: Lasha Castillo MD ?Resu ?? lts: 2Benign Findings ? Date of Service: // ?Follow Up: 1 Year From Orig ?? inal Mammogram ? Procedure(s): MM tomosynthesis screening BI ?? Accession Number(s): [id number] ? cc: Lasha Castillo MD ? EXAMINATION: ?? MM SCREENING DIGITAL BREAST TOMOSYNTHESIS, BILATERAL ? CLINICAL INFORMATION: ? Screening. Asymptomatic. ? COMPARISON: ?? Mammography: This study is compared with prior exams dating back to ?? 2020. ? TECHNIQUE: ?? Digital breast tomosynthesis is performed in both the craniocaudal and ?? mediolateral oblique views along with computer-aided detection (CAD). ?? Synthesized 2D images are generated from the tomosynthesis. ? FINDINGS: ?? There are scattered areas of fibroglandular density (ACR BI-RADS breast ?? composition Category b). ? There are no significant masses, abnormal calcifications, or other ?? abnormalities. ? There are 2 tissue markers in the left breast and one tissue marker in ?? the right breast from prior benign percutaneous biopsies. ? Few, bilateral benign calcifications are present. ? MM/MM tomosynthesis screening BI ?? IMPRESSION: ?? No mammographic evidence of malignancy. ? ASSESSMENT: ? BI-RADS BI-RADS 2 - Benign Findings ? RECOMMENDATION: ?? Routine annual mammography screening. ? 1 year F/U ? This examination should not preclude the clinical evaluation of a ?? suspicious palpable abnormality. ? This patient's information was entered into a reminder system with a ?? target due date for their next mammogram. ? Dictated By: ?Adriana Goncalves MD ? Signed By: ?<Electronically signed by Adriana Goncalves MD in OV> ? 09/03/23 1938 ? DD/ 1015 ? TD/TT: ? 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 Procedure Note Kerrie, [place] - 09/03/2023 [facility] [address] [place] [address] Mammography Report Signed Patient: Arianna Pineda EMR#: [id number] : 1Acct:[id number] Age/Sex: 63 / FADM Date: 08/24/23 Loc: HO.MAMMO Attending Dr: Lasha Castillo MD Ordering Physician: Lasha Castillo MDResu lts: 2Benign Findings Date of Service: 08/24/23Follow Up: 1 Year From Orig inal Mammogram Procedure(s): MM tomosynthesis screening BI Accession Number(s): [id number] cc: Lasha Castillo MD EXAMINATION: MM SCREENING DIGITAL BREAST TOMOSYNTHESIS, BILATERAL CLINICAL INFORMATION: Screening. Asymptomatic. COMPARISON: Mammography: This study is compared with prior exams dating back to 2020. TECHNIQUE: Digital breast tomosynthesis is performed in both the craniocaudal and mediolateral oblique views along with computer-aided detection (CAD). Synthesized 2D images are generated from the tomosynthesis. FINDINGS: There are scattered areas of fibroglandular density (ACR BI-RADS breast composition Category b). There are no significant masses, abnormal calcifications, or other abnormalities. There are 2 tissue markers in the left breast and one tissue marker in the right breast from prior benign percutaneous biopsies. Few, bilateral benign calcifications are present. MM/MM tomosynthesis screening BI IMPRESSION: No mammographic evidence of malignancy. ASSESSMENT: BI-RADS BI-RADS 2 - Benign Findings RECOMMENDATION: Routine annual mammography screening. 1 year F/U This examination should not preclude the clinical evaluation of a suspicious palpable abnormality. This patient's information was entered into a reminder system with a target due date for their next mammogram. Dictated By: Adriana Goncalves MD Signed By: <Electronically signed by Adriana Goncalves MD in OV> 09/03/23 1938 DD/ 1015 TD/TT: Bridge Ironworker Helper: us Lasha Jara MD IMG BI PROCEDURES Adama lanre Result - Final * (ABNORMAL) Lipid Panel with Reflex to Direct LDL (08/24/2023 8:30 AM EDT) Triglycerides 148 <150 mg/dL [facility] Comment:Desirable Triglyceri de: less than 150 mg/dLBorderline High Triglyceride 150-199 mg/dLHigh Triglyceride: 200-499 mg/dLVery High Triglyceride: greater than or equal to 5OO mg/dL Cholesterol 113 <200 mg/dL [facility] Comment:Desirable Cholestero l: less than 200 mg/dLBorderline High Cholesterol: 200-239 mg/dLHigh Cholesterol: greater than 239 mg/dL LDL Cholesterol Calculated 51 <100 mg/dL [facility] Comment:Desirable LDL: less than 100 mg/dLNear Optimal/Above Optimal LDL: 110- 129 mg/dLBorderline High LDL: 130-159 mg/dLHigh LDL: 160-189 mg/dLVery High LDL: greater than or equal to 190 mg/dL HDL Cholesterol 33(L) >40 mg/dL [facility] Comment:Desirable HDL: great er than 40 mg/dL Note: This HDL assay may give artificially low results in patients with liver disease. Blood 08/24/2023 8:30 AM EDT 08/24/2023 11:29 AM EDT us Lasha Jara MD LAB BLOOD ORDERABLES Final Result [facility] [address] [place] [phone] * Albumin, Random Urine W/Creatinine (06/29/2022 12:01 PM EDT) Creatinine, Random Urine 112 20 - 275 mg/dL [facility] Albumin, Urine 2.0 See Note: mg/dL [facility] Comment: Reference Range: Reference Range Not established Albumin/Creatinin e Ratio, Random Urine 18 <30 mcg/mg creat [facility] Comment: The ADA defines abnormalities in albumin excretion as follows: Albuminuria Category ?Result (mcg/mg creatinine) Normal to Mildly increased ?? <30 Moderately increased ? 30-299 Severely increased ? > OR = 300 The ADA recommends that at least two of three specimens collected within a 3-6 month period be abnormal before considering a patient to be within a diagnostic category. 06/29/2022 12:0 1 PM EDT 06/29/2022 12:02 PM EDT Narrative [facility] - 06/30/2022 5:17 PM EDT SPLIT 06/29/2022 FROM [id number] Lasha Jara MD LAB URINE ORDERABLES Final Result Performing Organization Address [facility] Co de Phone Number [facility] [address] [place] [address], [place] [address] [facility] [place] [facility] [address] [place] [phone] * Hepatitis C Antibody with Reflex to HCV, RNA, Quantitative, Real-Time PCR (06/29/2022 9:03 AM EDT) Hepatitis C Antibody NON-REACT BROCK NON-REACT BROCK [facility] Index 0.07 <1.00 [facility] Comment: HCV antibody was non-reactive. There is no laboratory evidence of HCV infection. In most cases, no further action is required. However, if recent HCV exposure is suspected, a test for HCV RNA (test code 70198) is suggested. For additional information please refer to http://education.LeadSift/faq/OML42s7 (This link is being provided for informational/ educational purposes only.) 06/29/2022 9:03 AM EDT 06/29/2022 9:04 AM EDT Narrative [facility] - 06/29/2022 10:21 PM EDT FASTING:NO PATIENT UNABLE TO VOID; ADVISED TO RETURN FOR COLLECTION. FASTING: NO Lasha Jara MD LAB BLOOD ORDERABLES Final Result Performing Organization Address [facility] Co de Phone Number [address], [place] [address] [employer] [place] [employer] [address] [place] [phone] * THINPREP TIS PAP AND HPV mRNA E6/E7 WITH REFLEX TO HPV 16,18/45 (09/27/2021 9:43 AM EDT) Clinical Information: None given [facility] COMMENT SEE COMMENT [facility] Comment: EXPLANATORY NOTE: ? The Pap is a screening test for cervical cancer. It is ?? not a diagnostic test and is subject to false negative ?? and false positive results. It is most reliable when a ?? satisfactory sample, regularly obtained, is submitted ?? with relevant clinical findings and history, and when ?? the Pap result is evaluated along with historic and ?? current clinical information. ?? COMMENT: This Pap test has been evaluated with computer assisted technology. [facility] Cytotechnologis t: SEE COMMENT [facility] Comment: JD, CT(ASCP) CT screening location: [address] ??[address] HPV nRNA E6/E7 Not Detected Not Detected [facility] Comment: Methodology: Product Safety Tester-Mediated Amplification This assay detects E6/E7 viral messenger RNA (mRNA) from 14 high-risk HPV types (16,18,31,33,35,39,45,51,52,56,58,59,66,68). ? Cervical sources are required for HPV testing. If a vaginal source from a patient who has had a total hysterectomy with removal of cervix was ?? submitted, please contact the testing laboratory for alternative testing options. ?? For additional information, please refer to http://education.LeadSift/faq/HBN075l7 (This link if provided for information/ educational purposes only.) Interpretation/ Result: Negative for intraepithelial lesion or malignancy. [facility] LMP: [facility] Prev. BX: NONE GIVEN [facility] Prev. PAP: NIL 11/16 [facility] SOURCE: None given [facility] Statement Of Adequacy: SEE COMMENT [facility] Comment: Satisfactory for evaluation. Endocervical/transformation zone component present. 09/27/2021 9:43 AM EDT Sandy Arechiga CNM LAB PATHOLOGY ORDERABLES Final Result [facility] [address] [place] [address], * Colonoscopy (06/26/2019) Colonoscopy Normal Normal 06/26/2019 Irene Zavala - 06/26/2019 2:53 PM EDT Recommended 5 year follow up ( see scanned notes) us Historical Provider HEALTH MAINTENANCE Edited Result - Final from Last 3 Months or Most Recently Relevant to Health Maintenance Insurance C[facility] MEDICAID STAND ADULT Care Teams Industrial Waste Treatment Technician Relationship Specialty Start Date End Date Lasha Marrufo MD [address] [place] [phone] PCP - General Internal Medicine 12/25/13
--- OUTSIDE RECORDS SUMMARY | 2024-05-29 13:34 | XMS_ITS | Encounter Summary ---
Author Organization [employer] Address [address] [facility] [address] [place] [address] Care Team Providers Care Chemistry Professor Name Role Phone Lasha Marrufo MD Primary Care Provide r Encounter Details Date Type Department Care Team ([facility] st Contact Info) Description 06/30/2022 Orders Only [facility] MED[facility]INE [address] [place] [address] Elsa Julien LPN Social History Tobacco Use [...] suspected to have Coronavirus/COVID-19? No / Unsure 06/29/2022 9:27 AM EDT documented as of this encounter Plan of Treatment Not on file documented as of this encounter Visit Diagnoses Not on filedocumented in this encounter Care Teams Chemistry Professor Relationship Specialty Start Date End Date Lasha Marrufo MD [address] [place], [place] [phone] PCP - General Internal Medicine 12/25/13 documented as of this encounter
--- OUTSIDE RECORDS SUMMARY | 2024-05-29 13:34 | XMS_ITS | Encounter Summary ---
Author Organization [employer] Address [address] [place] [address] [address], [place] [address] Care Team Providers Care Cut Roll Machine Offbearer Name Role Phone Lasha Marrufo MD Primary Care Provide r Encounter Details Date Type Department Care Team ([facility] st Contact Info) Description 03/31/2022 Telephone [facility] MEDICINE [address] [place], [place] [phone] Lasha Marrufo MD [address] [place], [place] [phone] Social History Tobacco Use Types Packs/Day Years [...] on filedocumented in this encounter Care Teams Cut Roll Machine Offbearer Relationship Specialty Start Date End Date Lasha Marrufo MD [address] [place], [place] [phone] PCP - General Internal Medicine 12/25/13 documented as of this encounter
--- OUTSIDE RECORDS SUMMARY | 2024-05-29 13:34 | XMS_ITS | Encounter Summary ---
Author Organization [employer] Address [address] [facility] [address] [place] [address] Care Team Providers Care Automotive Parts Salesperson Name Role Phone Lasha Marrufo MD Primary Care Provide r Encounter Details Date Type Department Care Team ([facility] st Contact Info) Description 05/03/2022 Orders Only [facility] MEDICINE [address] [place] [address] Elsa Julien LPN Social History Tobacco Use [...] on filedocumented in this encounter Care Teams Automotive Parts Salesperson Relationship Specialty Start Date End Date Lasha Marrufo MD [address] [place] [address] PCP - General Internal Medicine 12/25/13 documented as of this encounter
== END 2024-05-29 12:05 | disposition home or self-care (01) ==
PROVIDERS: PCP Internal Medicine; Visit Provider Physician Assistant
DX: S80.01XA Contusion of right knee, initial encounter (principal); Z96.651 Presence of right artificial knee joint
CPT/HCPCS: 99213

== ENCOUNTER → 2024-05-29 10:52 | Outpatient (BNVA) | payer MEDICAID, SELFPAY | PROVIDERS: PCP Internal Medicine; Visit Provider Physician Assistant | DX: S80.01XA Contusion of right knee, initial encounter (principal); Z96.651 Presence of right artificial knee joint | CPT/HCPCS: 99212 ==

== ENCOUNTER 2024-08-19 17:30 | Outpatient (REF) | payer MEDICAID, SELFPAY ==
--- OUTSIDE RECORDS SUMMARY | 2024-08-19 17:33 | XMS_ITS | Encounter Summary ---
Author Organization [employer] Address [address] [facility] 7t [place] [address] Care Team Providers Care Cement Gun Operator Name Role Phone Lasha Marrufo MD Primary Care Provide r Encounter Details Date Type Department Care Team (Late st Contact Info) Description 09/05/2022 Orders Only [facility] MEDICINE [address] [place] [phone] Elsa Julien LPN Social History Tobacco Use Types Packs/Day Years Used Date Smoking Tobacco: Every Day Cigarettes Comments Unknown Sex and Gender Information Value Date Recorded Sex Assigned at Female 01/31/2022 10:22 AM EDT Legal Sex Female 10:22 AM EDT Gender Identity Female 01/31/2022 10:22 AM EDT Sexual Orientation Straight 01/31/2022 10 :22 AM EDT documented as of this encounter Plan of Treatment Upcoming Encounters Date Type Department Care Team (Late st Contact Info) Description 09/05/2024 2:15 PM EDT Office Visit [facility] [address] [place] [address] [phone] Lasha Marrufo MD [address] [place] [phone] documented as of this encounter Visit Diagnoses Not on filedocumented in this encounter Care Teams Cement Gun Operator Relationship Specialty Start Date End Date Lasha Marrufo MD [address] [place] [phone] PCP - General Internal Medicine 12/25/13 documented as of this encounter
--- OUTSIDE RECORDS SUMMARY | 2024-08-19 17:33 | XMS_ITS | Encounter Summary ---
Author Organization [employer] Address [address] [facility] 7t [place] [address] Care Team Providers Care Supervisor Hairspring Fabrication Name Role Phone Lasha Marrufo MD Primary Care Provide r Reason for Visit * Reason Onset Date Comments tooth fell off partial again 11/21/2023 Encounter Details Date Type Department Care Team ([facility] st Contact Info) Description 11/21/2023 Telephone [facility] ADULT DENTAL [address] [place] [address] Jeanne Arreola, DDS [address] [place] [address] tooth fell off partial again Social History [...] documented in this encounter Plan of Treatment Upcoming Encounters Date Type Department Care Team (Late st Contact Info) Description 09/05/2024 2:15 PM EDT Office Visit [facility] MEDICINE [address] [place], [place] [phone] Lasha Marrufo MD [address] [place] [address] documented as of this encounter Goals Goal [...] documented as of this encounter Care Teams Supervisor Hairspring Fabrication Relationship Specialty Start Date End Date Lasha Marrufo MD [address] [place], [place] [phone] PCP - General Internal Medicine 12/25/13 documented as of this encounter
--- OUTSIDE RECORDS SUMMARY | 2024-08-19 17:33 | XMS_ITS | Encounter Summary ---
Author Organization [employer] Address [address] [facility] [address] [place] [address] Care Team Providers Care Composing Room Supervisor Name Role Phone Lasha Marrufo MD Primary Care Provide r Encounter Details Date Type Department Care Team (Late Contact Info) Description 03/31/2022 Telephone [facility] MEDICINE [address] [place] [address] [phone] Lasha Marrufo MD [address] [place] [address] [phone] Social History Tobacco Use Types Packs/Day Years [...] Description 09/05/2024 2:15 PM EDT Office Visit [facility] MEDICINE [address] [place] [phone] Lasha Marrufo MD [address] [place] [address] [phone] documented as of this encounter Visit Diagnoses Not on filedocumented in this encounter Care Teams Composing Room Supervisor Relationship Specialty Start Date End Date Lasha Marrufo MD [address] [place] [address] [phone] PCP - General Internal Medicine 12/25/13 documented as of this encounter
--- OUTSIDE RECORDS SUMMARY | 2024-08-19 17:33 | XMS_ITS | Clinical Summary ---
Author Organization [facility] Address [address] [place] [address] Phone Care Team Providers Care Pharmacy Graduate Intern Name Role Phone Physician, No Pcp Primary Care Provider Unavaila ble Social History Tobacco Use Types Packs/Day Years [...] 2 - PCV) 07/02/2015 07/01/2014 RSV Immunization Adult Patients (1 - Risk 60-74 years 1-dose series) [...] age to complete this topic Meningococcal B Vaccine Aged Out No l onger eligible based on patient's age to complete this topic RSV Immunization Patients Under 20 months Aged Out No longer eligible based on patient's age to complete this topic Varicella Vaccines Aged Out No longer eligible based on patient's age to complete this topic Insurance MEDICAID - [place] Care Teams Pharmacy Graduate Intern Relationship Specialty Start Date End Date Physician, No Pcp PCP - General 04/18/24
--- OUTSIDE RECORDS SUMMARY | 2024-08-19 17:33 | XMS_ITS | Encounter Summary ---
Author Organization [employer] Address [address] [facility] 7t [place] [address] Care Team Providers Care In Service Educator Name Role Phone Lasha Marrufo MD Primary Care Provide r Encounter Details Date Type Department Care Team (Late st Contact Info) Description 04/06/2022 Orders Only [facility] CHC MED & PEDS [address] [place] [address] Eliz Adorno LPN Social History Tobacco Use [...] Description 09/05/2024 2:15 PM EDT Office Visit [facility] MEDICINE [address] [place] [address] Lasha Marrufo MD [address] [place] [address] documented as of this encounter Visit Diagnoses Not on filedocumented in this encounter Care Teams In Service Educator Relationship Specialty Start Date End Date Lasha Marrufo MD [address] [place] [phone] PCP - General Internal Medicine 12/25/13 documented as of this encounter
--- OUTSIDE RECORDS SUMMARY | 2024-08-19 17:33 | XMS_ITS | Encounter Summary ---
Author Organization [employer] Address [address] [facility] [address] [place] [address] Care Team Providers Care Pattern Fitter Name Role Phone Lasha Marrufo MD Primary Care Provide r Reason for Visit * Reason Onset Date Comments appt PA approved 12/22/2023 Encounter Details Date Type Department Care Team ([facility] st Contact Info) Description 12/22/[address] [facility] ADULT DENTAL [address] [place] [address] Jeanne Arreola, DDS [address] [place] [address] appt PA approved Social History Tobacco Use [...] Description 09/05/2024 2:15 PM EDT Office [address] [facility] MEDICINE [address] [place], [place] [phone] Lasha Marrufo MD 230 [place] [address] documented as of this encounter Goals Goal [...] documented as of this encounter Care Teams Pattern Fitter Relationship Specialty Start Date End Date Lasha Marrufo MD [address] [place] [address] PCP - General Internal Medicine 12/25/13 documented as of this encounter
--- OUTSIDE RECORDS SUMMARY | 2024-08-19 17:33 | XMS_ITS | Patient Health Record ---
Author Organization [facility] Address [address] [place] [address] Care Team Providers Care Matrix Plater Name Role Phone Mirella Jara MD, Lasha Primary Care Provide Medardo Thornton Jr Unavailable [phone] Allergies Allergen (clinical drug ingredient) Drug/Non Drug Allergy documented on EMR Reaction Allergy Type Onset Date Status codeine Codeine Sulfate Unknown Drug Allergy A ctive Results Component Value Reference Range Notes Complete Blood Count no Diff Reviewed date:04/02/2024 02:01:30 PM Interpretation: Performing Lab:[facility], [address] [place] [address] Notes/Report: White Blood Count 8.0 4.8-10.8 X10*3/uL [...] Panel Reviewed date:04/02/2024 02:01:14 PM Interpretation: Performing Lab:[facility], [address] [place] [phone] Notes/Report: Bilirubin Total 0.2 0.0-1.0 mg/dL Bilirubin Direct < 0.2 0.0-0.5 mg/dL Aspartate Amino Transferase 21 5-31 U/L Alanine Aminotransferase 22 0-31 U/L Total Protein 7.7 6.5-8.0 g/dL Albumin Level 4.1 3.5-5.0 g/dL Alkaline Phosphatase 128 39-117 U/L IRON PROFILE Reviewed date:04/02/2024 02:01:24 PM Interpretation: Performing Lab:[facility], [address] [place] [phone] Notes/Report: Iron 41 30-160 mcg/dL Total Iron Binding Capacity 335 228-428 mcg/dL Percent Iron Saturation 12 15-50 % Unsaturated Iron Binding 294 Ferritin Reviewed date:04/02/2024 02:01:49 PM Interpretation: Performing Lab:[facility], [address] [place] [phone] Notes/Report: Ferritin 11 10-250 ng/mL Liver Fibrosis Pnl Reviewed date:04/08/2024 08:30:50 AM Interpretation: Performing Lab:[facility], [address] [place] [phone] Notes/Report: Liver Fibrosis Score 0.19 Liver Fibrosis [...] a>0.62 and a<=1.00 : A3 (severe activity) DGQ-Bafwy-9-Macroglobul in 219 106-279 mg/dL FIB-Haptoglobin 217 43-212 mg/dL FIB-Apolipoprotein A1 153 101-198 mg/dL FIB-Total Bilirubin 0.2 0.2-1.2 mg/dL FIB-GGT 119 3-65 U/L FIB-ALT 14 6-29 U/L Reference ID [id number] Footnote SEE NOTE The reliability of results is dependent on compliance with the preanalytical and analytical conditions recommended by [employer]. The tests have to be deferred for: [...] The performance characteristics have been determined by [facility]. It has not been cleared or approved by the U.S. Food and Drug Administration. Performance characteristics refer to the analytical performance of the test. [employer], the associated logo, Key Ring and all associated [employer] givens are the registered trademarks of [employer]. All third republican givens - (R) and (TM) - are the property of their respective owners. (C) 1142-6378 [employer]orporated. All rights reserved. THIS TEST WAS PERFORMED AT: [facility] [address] [place] [address] TRAVIS BOO MD,PHD,TRINY SANDEEP Reflex Titer and Pattern Reviewed date:04/05/2024 02:03:11 PM Interpretation: Performing Lab:[facility], [address] [place] [phone] Notes/Report: Anti Nuclear Antibody Screen NEGATIVE NEGATIVE [...] AC-0: Negative International Consensus on SANDEEP Patterns (https://doi.org/10.15 15/aemn-4154-9232) For additional information, please refer to http://education.[employer].CareHubs/faq/FA Q107 (This link is being provided for informational/ educational purposes only.) THIS TEST WAS PERFORMED AT: [facility] [address] [place] [address] JEAN PAUL LEWIS MD Anti Nuclear Antibody Titer TNP Anti Nuclear Antibody Pattern TNP SANDEEP Titer 2 TNP SANDEEP Pattern 2 TNP SANDEEP Titer 3 TNP SANDEEP Pattern 3 TNP Mitochondrial Antibody Reviewed date:04/09/2024 03:01:22 PM Interpretation: Performing Lab:[facility], [address] [place] [phone] Notes/Report: Mitochondrial Antibodies NEGATIVE NEGATIVE The specimen was negative for cytoplasmic antibodies, however additional staining was observed suggesting the presence of Antinuclear Antibodies. Consider requesting order code 249, SANDEEP Screen, IFA with Reflex to Titer and Pattern, or order code [id number], SANDEEP Screen, IFA w/reflex Titer/Pattern, and Reflex to Multiplex 11 Ab [place], if clinically indicated. THIS TEST WAS PERFORMED AT: [facility] [address] [address] JEAN PAUL LEWIS MD Mitochondrial Ab Titer TNP Smooth Muscle Antibody Reviewed date:04/09/2024 03:01:16 PM Interpretation: Performing Lab:[address] [address] Notes/Report: Smooth Muscle Antibody 25 <20 U [...] type 1. THIS TEST WAS PERFORMED AT: [facility]/[address] [address] SIGRID MOLINA MD,PHD Hepatitis A,B,C Profile Reviewed date:04/02/2024 02:01:41 PM Interpretation: Performing Lab:[facility], [address] [place] [phone] Notes/Report: Hepatitis A Antibody IgM Nonreactive Nonreactive [...] Blood Reviewed date:04/02/2024 01:59:23 PM Interpretation: Performing Lab:[facility], [address] [place] [phone] Notes/Report: Glucose, Whole Blood 106 60-115 mg/dL METER # : [id number] Pathology Reviewed date:04/05/2024 03:24:48 PM Interpretation: Performing Lab:[facility], [address] [place] [phone] Notes/Report: -- ---- Name: Khushi Waters Age/Sex: 64/F : 1960 [facility]#: [id number] Unit#: [id number] Attend Dr: Medardo Delgado MD Re04/02/24 Status : [facility] Location: [facility] Disch: -- ---- SPEC : [id number] RECD : 04/02/24 STATUS: NUNO BARRETO NUM: [id number] COURTNEY: 04/02/24-59 [facility] DR: Medardo Delgado MD ENTERED: 04/02/24-10 35 SP TYPE: Surgical OTHR DR: Dante Castillo MD ORDERED: HE Stain/9, Gross Micro L4/3, IHC, Special st. 2, H. pylori, AB/PAS Diagnosis A. Duodenum, biopsy: Duodenal mucosa with preserved villi and no specific change. B. Gastric antrum, biopsy: Chronic gastritis with mild activity; negative for H. pylori, intestinal metaplasia and dysplasia. C. Esophagogastric junction, biopsy: Squamocolumnar mucosa with mild chronic inflammation; negati ve for intestinal metaplasia and dysplasia. Clinical History Pre-Op Dx: Abnormal findings on diagnostic imaging of other parts of digestive tract Post-Op Dx: Normal Microscopic Description Microscopic sections reviewed. Immunostain for H. pylori on B is negative. AB/PAS on C is negative for intestinal metaplasia. Controls stain appropriately. Material Received A. Duodenum bx B. Antral bx C. EG junction bx Gross Description Received in three parts. Part A: Received in formalin labeled ?duodenum bx? are 3 araujo-pink irregular tissue fragments ranging fr om 0.2-0.35 cm, submitted in toto in a cassette labeled A. Part B: Received in formalin labeled ?antral bx? are 2 grullon-araujo rectangular tissue fragments measuring 0.3 and 0.4 cm, submitted in toto in a cassette labeled B. Part C: Received in formalin labeled ?EG junction bx? are 4 grullon-white and araujo-pink irregular tissue fragments ranging from 0.15-0.25 cm, submitted in toto in a cassette labeled C. CEDS Special studies ordered and performed: Immunostain for H. pylori on B1; AB/PAS stains on C1. CONTINUED ON NEXT PAGE -- ---- Name: Khushi Waters Age/Sex: 64/F : 1960 Unit#: [id number] Attend Dr: Medardo Delgado MD Re04/02/24 Status : [facility] Location: [facility] Disch: -- ---- SPEC : [id number] RECD : 04/02/24 STATUS: NUNO BARRETO NUM: [id number] COURTNEY: 04/02/24 [facility] DR: Medardo Delgado MD ENTERED: 04/02/24- 35 SP TYPE: Surgical OTHR DR: Dante Castillo MD ORDERED: HE Stain/9, Gross Micro L4/3, IHC, Special st. 2, H. pylori, AB/PAS Copies To: Medardo Delgado MD [facility] [address] [place] [address], MD [address] [place] [address] -- ---- Signed (signature on file) Kelly Ochoa 04/05/24 1257 -- ---- END OF REPORT Reason For Referral Referring Provider First Name Lasha Referring Provider Last Name Mirella perez Referring Provider Speciality Internal M edicine Referred Organization [facility] Referred Provider Medardo Delgado Jr Referred Address [address] [place] [address],[facility] [address],[place], [place],[address], Referred Provider Specialty Gastroentero logy General Notes Kelsi Christianson 2024 09:59:43 AM >requested a [facility] referral from [facility] for visit with dr akins on 08-29-24 Referral Priority Routine Medications Medication SIG (Take, Route, Frequency, Duration) Notes [...] Once a day for 30 day(s) Active Immunizations Vaccine Route Administration Date Status Comme nts Influenza Unknown 12/02/2018 Administered Influenza Unknown 01/15/2020 Administered Influenza Unknown 01/01/2022 Administered Influenza Unknown 08/31/2023 Refused Problems Problem Type SNOMED Code ICD Code Onset Dates Problem Status W/U Status Risk Notes Problem 95111555 Rectal bleeding (K62.5) Active confirmed Problem 91727644 Constipation (K59.00) Active confirmed Problem Gastroesophageal reflux disease (714720719) Gastroesophageal reflux disease (K21.9) Active confirmed Problem 557432053 Gastroesophageal reflux disease without esophagitis (K21.9) Active confirmed Problem 669028236 Fatty liver (K76.0) Active confirmed Problem 52314253 Hiatal hernia (K44.9) Active confirmed Problem 48706774 Dysphagia, unspecified type (R13.10) Active confirmed Problem 885137001 Abnormal UGI series (R93.3) Active confirmed Problem 022950723 Irritable bowel syndrome with constipation (K58.1) Active confirmed Problem 957252955 GERD without esophagitis (K21.9) Active confirmed Problem 390576454 LUQ pain (R10.12) Active confirmed Problem 999082462 LLQ pain (R10.32) Active confirmed Problem 442518434 Epigastric mass (R19.06) Active confirmed Vital Signs Temperature 98.4 degrees Fahrenheit 08/31/2023 Blood pressure diastolic 00 mm Hg 03/14/2024 And is a Height 66.5 in 03/14/2024 And is a Blood pressure systolic 00 mm Hg 03/14/2024 And is a Weight 230 lbs 03/14/2024 And is a BMI 36.56 kg/m2 03/14/2024 And is a Encounters Encounter Location Date Provider Diagnosis [facility] [address] [place], [place] [phone] 04/02/2024 Medardo Delgado Jr Abnormal UGI series R93.3 [facility] [address] [place] [address] 08/31/2023 Medardo Delgado Jr Gastroesophageal reflux disease without esophagitis K21.[address] [facility] [address] [facility] [place] [address] 03/14/2024 Medardo Delgado Jr Abnormal UGI series R93.3 ; Dysphagia, unspecified type R13.10 and Fatty liver K76.0 [facility] [address] [facility] [place] [address] 10/16/[address] [facility] [address] [facility] [place] [address] 10/17/[address] [facility] [address] [facility] [place] [address] 10/26/[address] [facility] [address] [facility] [place] [address] 02/19/2024 Medardo Delgado Jr Gastroesophageal reflux disease without esophagitis K21.9 [facility] [address] [facility] [place] [address] 02/21/[address] [facility] [address] [facility] [place] [address] 03/19/[address] [facility] [address] [facility] [place] [address] 04/02/[address] [facility] [address] [facility] [place] [address] 04/05/2024 Medardo Delgado Jr Assessments Encounter Date Diagnosis (ICD Code) Assessment Notes Treatment Notes Treatment Clinical Notes Section Notes 04/02/2024 Abnormal UGI series (ICD-10 - R93.3) 08/31/2023 Constipation (ICD-10 - K59.00) My impression is that she is doing well. Reflux symptoms are under good control and she will continue Pepcid. She can use simethicone as needed for gas. She continues MiraLax as needed for constipation. Followup will be in one year. 08/31/2023 Gastroesophageal reflux disease without esophagitis (ICD-10 - K21.9) My impression is that she is doing well. Reflux symptoms are under good control and she will continue Pepcid. She can use simethicone as needed for gas. She continues MiraLax as needed for constipation. Followup will be in one year. 03/14/2024 Dysphagia, unspecified type (ICD-10 - R13.10) We discussed her symptoms today. Because of her abnormal upper GI series and dysphagia, we have recommended upper endoscopy. We discussed risks and benefits of the procedure today. She understands these and agrees to proceed. She will undergo further evaluation with lab work and ultrasound imaging because of her CT scan findings. We discussed fatty liver in detail today. We recommended she follow a low-fat diet, exercise, and lose weight. She should continue to have good control of her comorbid diseases include diabetes and hyperlipidemia . Followup will be in 6 months to one year. Today's visit was 30 minutes. 03/14/2024 Abnormal UGI series (ICD-10 - R93.3) Endoscopy material was printed We discussed her symptoms today. Because of her abnormal upper GI series and dysphagia, we have recommended upper endoscopy. We discussed risks and benefits of the procedure today. She understands these and agrees to proceed. She will undergo further evaluation with lab work and ultrasound imaging because of her CT scan findings. We discussed fatty liver in detail today. We recommended she follow a low-fat diet, exercise, and lose weight. She should continue to have good control of her comorbid diseases include diabetes and hyperlipidemia . Followup will be in 6 months to one year. Today's visit was 30 minutes. 02/19/2024 Gastroesophageal reflux disease without esophagitis (ICD-10 - K21.9) 03/14/2024 Fatty liver (ICD-10 - K76.0) We discussed her symptoms today. Because of her abnormal upper GI series and dysphagia, we have recommended upper endoscopy. We discussed risks and benefits of the procedure today. She understands these and agrees to proceed. She will undergo further evaluation with lab work and ultrasound imaging because of her CT scan findings. We discussed fatty liver in detail today. We recommended she follow a low-fat diet, exercise, and lose weight. She should continue to have good control of her comorbid diseases include diabetes and hyperlipidemia . Followup will be in 6 months to one year. Today's visit was 30 minutes. Plan Of Treatment Pending Test Test Name Order Date BUN 01/23/2020 BUN 04/13/2020 CREATININE 01/23/2020 CREATININE 04/13/2020 LIVER PROFILE 03/14/2024 LIVER PROFILE 01/23/2020 LIPASE 01/23/2020 IRON + IBC (FE) 03/14/2024 FERRITIN 03/14/2024 CBC w/o DIFF 01/23/2020 CBC w/o DIFF 03/14/2024 MITOCHONDRIAL AB 03/14/2024 SMOOTH MUSCLE ANTIBODIES 03/14/2024 CT ABD & PELVIS WITH CONTRAST 01/23/2020 Liver Fibrosis Pnl 03/14/2024 SANDEEP Reflex Titer and Pattern 03/14/2024 Hepatitis A,B,C Profile 03/14/2024 Future Test Test Name Order Date COLONOSCOPY 05/02/2019 UPPER GI ENDOSCOPY 12/23/2020 UPPER GI ENDOSCOPY 03/14/2024 Next Appt Details Provider Name:Medardo vallecillo , 08/29/2024 03:55:00 PM, [address], [address], [place], [address], Insurance Providers Payer Name Payer Address Payer Phone Subscriber Number Group Number Insured Name Patient Relationship to Insured Coverage Start Date Coverage End Date MEDICAID OF [employer] [address] [place] [phone] [id number] YUAN LR Self - patient is the insured Medical (General) History Medical History History ICD Code hypertension obesity Hypothyroidism asthma arthritis SANDEEP + colonoscopy 06/26/19, 1 adenoma, five-yea r followup recommended Gastroesophageal reflux dise [facility], EGD, no Santos's esophagus or H. pylori. Obstructive sleep apnea type II diabetes Surgical History Surgery Date(Month/Year) breast biopsy tubal ligation cholecystectomy knee surgery-right
--- OUTSIDE RECORDS SUMMARY | 2024-08-19 17:33 | XMS_ITS | Encounter Summary ---
Author Organization [employer] Address [address] [facility] [address] [place] [address] Care Team Providers Care Center Line Cutter Operator Name Role Phone Lasha Marrufo MD Primary Care Provide r Reason for Visit * Reason Comments Med Refill Encounter Details Date Type Department Care Team (Late st Contact Info) Description 04/04/2023 Refill [facility] [address] [place] [address] [phone] Lasha Marrufo MD [address] [place] [address] [phone] Social History Tobacco Use Types Packs/Day Years [...] Description 09/05/2024 2:15 PM EDT Office Visit [facility] [address] [place] [phone] Lasha Marrufo MD [address] [place] [address] [phone] documented as of this encounter Visit Diagnoses Not on filedocumented in this encounter Care Teams Center Line Cutter Operator Relationship Specialty Start Date End Date Lasha Marrufo MD [address] [place] [phone] PCP - General Internal Medicine 12/25/13 documented as of this encounter
--- OUTSIDE RECORDS SUMMARY | 2024-08-19 17:33 | XMS_ITS | Encounter Summary ---
Author Organization [employer] Address [address] [facility] [address] [place] [address] Care Team Providers Care Disability Program Navigator Name Role Phone Lasha Marrufo MD Primary Care Provide r Reason for Visit * Reason Onset Date Comments Nurse Triage 07/04/2024 Encounter Details Date Type Department Care Team ([facility] st Contact Info) Description 07/04/2024 Telephone [facility] [address] [place], [place] [phone] Lasha Marrufo MD [address] [place] [address] Nurse Triage Social History Tobacco Use Types Packs/Day Years [...] encounter Miscellaneous Notes * Telephone Encounter - Cyndie Mg LPN - 07/04/2024 1:44 PM EDT Triage call returned with BLS # [id number] Hum[employer]. Patient reports dizziness noted with standing. Has to hold on to furniture at times as she feels off balance. No falls no fainting and had Neurology appt. For this symptoms on Monday. No fever numbness or weakness noted of face or extremities. Patient reports that BG are good with readings checked along with BP does not provide recent reading. Patient with PCP appt. In September and would like to see PCP sooner than that. Unable to provide appt. Based on Triage Protocol at time of call. Team tasked to follow with patient for sooner availability. Patient advised to keep Neurology appt. And signs and symptoms to seek ED evaluation as needed. Forwarded to team as FYI to follow up PRN Protocol Used: Dizziness (Adult) Protocol-Based Disposition: Discuss with PCP and Callback by Nurse Today Override (Final) Disposition: Discuss with PCP and Callback by Nurse Today Override Reason: Other Override Notes: Patient requesting PCP appt sooner than September. Seeing Neurologist for dizziness on Monday. Positive Triage Question: * Taking a medicine that could cause dizziness (e.g., blood pressure medications, diuretics) * All higher-acuity triage questions were negative Care Advice Discussed: * Sit Up Slowly Before Standing * Drink Fluids * Lie Down and Rest * Reasons To Call Back - After 2 hours of rest and fluids and you are still feeling dizzy - You pass out (faint) or are too weak to stand - You become worse * Telephone Encounter - Braden Cee - 07/04/2024 1:39 PM EDT Symptom: Dizziness Outcome: Talk to a nurse or provider within 15 minutes Reason: Trouble walking The caller accepted this outcome. documented in this encounter Plan of Treatment Upcoming Encounters Date Type Department Care Team (Late st Contact Info) Description 09/05/2024 2:15 PM EDT Office Visit [facility] [address] [place] [address] Lasha Marrufo MD [address] [place], [place] [phone] documented as of this encounter Goals Goal [...] documented as of this encounter Care Teams Disability Program Navigator Relationship Specialty Start Date End Date Lasha Marrufo MD [address] [place], [place] [phone] PCP - General Internal Medicine 12/25/13 documented as of this encounter
--- OUTSIDE RECORDS SUMMARY | 2024-08-19 17:33 | XMS_ITS | Encounter Summary ---
Author Organization [employer] Address [address] [facility] [address] [place] [address] Care Team Providers Care Last Sorter Name Role Phone Lasha Marrufo MD Primary Care Provide r Reason for Visit * Reason Comments Med Refill Encounter Details Date Type Department Care Team (Late st Contact Info) Description 09/08/2022 Refill [facility] [address] [place], [place] [phone] Lasha Marrufo MD [address] [place], [place] [phone] Acute non intractable tension-type headache; Anxiety Social [...] Description 09/05/2024 2:15 PM EDT Office Visit [facility] [address] [place], [place] [phone] Lasha Marrufo MD [address] [place], [place] [phone] documented as of this encounter Visit Diagnoses Diagnosis Acute non intractable tension-type headache Anxiety Anxiety state, unspecified documented in this encounter Care Teams Last Sorter Relationship Specialty Start Date End Date Lasha Marrufo MD [address] [place] [address] PCP - General Internal Medicine 12/25/13 documented as of this encounter
--- OUTSIDE RECORDS SUMMARY | 2024-08-19 17:33 | XMS_ITS | Encounter Summary ---
Author Organization [employer] Address [address] [facility] [address] [place] [address] Care Team Providers Care Rough And Trueing Machine Operator Name Role Phone Lasha Marrufo MD Primary Care Provide r Reason for Visit * Reason Comments Med Refill Encounter Details Date Type Department Care Team (Late st Contact Info) Description 03/09/2022 Refill [facility] [address] [place] [address] [phone] Lasha Marrufo MD [address] [place] [phone] Acute migraine (Primary Dx) Social History Tobacco [...] Description 09/05/2024 2:15 PM EDT Office Visit [facility] [address] [place] [address] [phone] Lasha Marrufo MD [address] [place] [address] [phone] documented as of this encounter Visit Diagnoses Diagnosis Acute migraine- Primary documented in this encounter Care Teams Rough And Trueing Machine Operator Relationship Specialty Start Date End Date Lasha Marrufo MD [address] [place] [address] PCP - General Internal Medicine 12/25/13 documented as of this encounter
--- OUTSIDE RECORDS SUMMARY | 2024-08-19 17:33 | XMS_ITS | Encounter Summary ---
Author Organization [employer] Address [address] [facility] 7t [place] [address] Care Team Providers Care Biomedical Field Service Engineer Name Role Phone Lasha Marrufo MD Primary Care Provide r Encounter Details Date Type Department Care Team (Late st Contact Info) Description 04/13/2022 Orders Only [facility] [address] [place] [phone] Elsa Julien LPN Social History Tobacco Use [...] 2:15 PM EDT Office Visit [facility] [address] [place] [phone] Lasha Marrufo MD [address] [place] [address] documented as of this encounter Visit Diagnoses Not on filedocumented in this encounter Care Teams Biomedical Field Service Engineer Relationship Specialty Start Date End Date Lasha Marrufo MD [address] [place] [id number] PCP - General Internal Medicine 12/25/13 documented as of this encounter
--- OUTSIDE RECORDS SUMMARY | 2024-08-19 17:34 | XMS_ITS | Data Portability ---
Author Organization [place] - [facility] Address [address] [place] [phone] Care Team Providers Care River Rat Name Role Phone SARA XAVIER Primary Care Provider Assessment Encounter Date Assessment Date Assessment LastModified by Organization Details LastModified Time 08/30/2023 08/30/2023 Patient's audiogram shows bilateral moderate sensorineural hearing loss with well maintained speech discrimination. There is enough hearing loss to affect day-to-day hearing performance. We discussed in detail the pros and cons of amplification (hearing aids). Patient would like to learn more about this option so I have provided a copy of the audiogram, a list of [facility] hearing aid providers, and medical clearance for amplification so the patient can pursue this at their convenience. Patient is medically cleared for amplification bilaterally. [email or web address] Not available 08/30/2023 12:24:23 11/03/2023 11/03/2023 Patient describes dysphagia for pills. Fiberoptic laryngoscopy was benign. No lesions of oral cavity or throat. Recommend further evaluation with barium swallow. We may review results with portal with her daughter Yamilet. [email or web address] Not available 11/03/2023 10:54:09 Plan of Treatment Reminders Order Date Submit Date Provider Last Modified By Organization Details Last Modified Time Details Appointments None recorded . Lab None recorded . Referral None recorded . Procedures None recorded . Surgeries None recorded . Imaging barium swallow study - sao tomean speaker 2023 024 [facility] Diagnosit Imaging Dept, [address] [place] [address], [address], 11:05:06 Medication Orders None recorded . Patient TargetsNo targets recorded. Patient InstructionsNo instructions recorded. Reason for Referral None Reported. Results Created Date Observation Date Name Description Value Unit Range Abnormal Flag Note LastModifiedBy Organization Detail LastModifiedTime 08/31/19 24 08/30/2023 audio gram No observ ation record ed. BARCODE Not Available 2023 15:50:10 11/22/19 24 03/30/2020 imagi ng/di agnos tic resul t No observ ation record ed. [email or web address] Not Available 04:24:34 11/22/19 24 03/30/2020 imagi ng/di agnos tic resul t No observ ation record ed. [email or web address] Not Available 04:24:37 11/22/19 24 03/30/2020 audio gram No observ ation record ed. [email or web address] Not Available 04:24:52 05/01/19 25 04/30/2024 XR, esoph sandipam See Note [facility] , a member of [facility] Jason greene Name: YUAN MORALES Date of : 1959 Reason for Exam: DYSPHA SAVANAH, UNSPEC IFIED Exam Date: 2024 [id number] EST Report Status : Final Orderi ng Provid er: LAURIE HYDE PCP: PIOTR GS: Double contra st esopha gram perfor med. COMPAR BENJAMIN: No prior esopha gram imagin g HISTOR Y: Jason greene is a 64-yea r-old female with histor y of dyspha savanah, GERD. Beta Tester radiog raphs: 1 view chest radiog raph demons trates cardia c and medias tinal contou rs within normal limits . There is an area of linear scarri ng along the right lung base, unchan ged when compar ed to prior imagin g from 2021. Lungs are otherw ise clear. Aortic knob is calcif ied. Osseou s struct ures are grossl y intact . 1 view latera l soft tissue neck demons trates no prever tebral soft tissue masses . Airway is widely patent . Efferv escent aashish ls were admini stered orally . Thick and thin barium were admini stered orally under fluoro scopic contro l. Pharyn goesop hagram : Rapid sequen ce imagin g of the hypoph arynx during swallo wing demons trates prompt initia tion of swallo wing. There is normal soft palate elevat ion and normal epiglo ttic motion . There is no laryng eal penetr ation or codey aspira tion. There is no residu al in the vallec reji nor in the pirifo rm sinuse s. Thorac ic esopha karlene: There is modera te esopha geal dysmot ility. Normal disten sibili ty and mucosa l patter n withou t eviden ce of ulcera tion, strict ure or mass format ion. Hiatal hernia : None Reflux : Unable to elicit 13mm Barium pill: Swallo wed withou t diffic ulty. Tempor jennifer lodgin g of tablet at the GE juncti on with eventu al passag e into the stomac h, likely second jennifer to dysmot ility. Air Kerma: 118.30 mGy IMPRES JENNY: Modera te esopha geal dysmot ility, otherw ise normal double contra st esopha gram. ------ -- FINAL REPORT ------ -- Dictat ed By: Halley Fishman Dictat ed Date: 2024 12:58 ET Assign ed Physic georgette: Modesto العلي Review ed and Electr onical ly Signed By: Modesto العلي nt Signed Date: 2024 16:24 ET Workst ation [id number] Transc ribed By: Self Edit Transc ribed Date: 2024 13:04 ET Reside nt/PA/ BELT BACK OPERATOR: Halley Fishman [address], [place], [address], 05/15/2024 18:16:30 Result Notes None recorded. Problems Name Problem SNOMED Code Status Onset Date Resolution Date Notes Provider Name and Address Organization Details Recorded Time Otalgia of left ear 5196822132 Active 2018 Otalgia, left ear; Note: Date Diagnosed : 07/11/2018 1:20 PM (H92.02) Not Available [facility] 4 02:22:05 Sensorine ural hearing loss of bilateral ears 893170161 Active 2019 Sensorine ural hearing loss, bilateral ; Note: Date Diagnosed : 0 2:11 PM (H90.3) Not Available [facility] 4 02:22:06 Impacted cerumen in right ear 44946350291 06424 Active 2023 LAURIE HYDE MD [address] [place] [address],[place] [address], [place], [phone] , [facility] - [facility] 4 12:23:59 Dysphagia 61040419 Active 2023 LAURIE HYDE MD [address] [place] [address],[place] [address], [place], [address] , [facility] - [facility] 4 10:45:04 Problem Notes None recorded. Procedures Surgical History Date Name Laterality Status Provider Name and Address Organization Details Recorded Time 11/03/2023 FOL_DP completed LAURIE HYDE MD [address] [place] [address],[address], [phone], [facility] - [facility] 11/03/2023 10:45:32 08/30/2023 Wax_DP completed LAURIE HYDE MD [address] [place] [address],[address], [address], [facility] - [facility] 08/30/2023 12:23:50 08/30/2023 Air only Audio - 39283 completed SHWETA ALLEN [place], [facility] [address] [place] [address],[place] [address], [place], [phone], [facility] - [facility] 08/30/2023 11:05:08 08/30/2023 SRT & Tymps - 36852 & 75250 completed SHWETA ALLEN MA, [facility] [address] [place] [address],[address], [phone], [facility] - [facility] 08/30/2023 11:05:44 Imaging Results Imaging Date Name Status LastModified by [facility] Details LastModified Time 08/30/2023 audiogram completed BARCODE Information no t available 08/31/2023 15:50:10 03/30/2020 imaging/diagnos tic result completed Information not available 11/22/2023 04:24:34 03/30/2020 imaging/diagnos tic result completed Information not available 11/22/2023 04:24:37 03/30/2020 audiogram completed Information not available 11/22/2023 04:24:52 04/30/2024 XR, esophagram completed [address], [address], 05/15/2024 18:16:30 Procedure Notes None recorded. Medical Equipment None Reported. Allergies Allergen ID Allergen Name Allergen Category Reaction Reaction Severity Criticality Documentation Date Start Date Code Code System Note Provider Name and Address Organization Details Recorded Time 68409 pseudoeph edrine Not available other Not available Not available 08/15/2023 8896 RxNorm React ion: unkno wn, unspe cifie d;; Not Available [facility] 00:54:32 Medications Name Sig Start Date Stop Date Status Note LastModified by Organization Details LastModified Time cyclobenzapr ine 10 mg tablet 2018 active Medication ID: [id number] Durat ion Value: 10 Brand Name: cyclobenzapr ine Send Method: E-Prescribed Subs Allowed: subs OK Special Instruction: TAKE 1 TABLET BY MOUTH THREE TIMES DAILY Medica tionGenericN soo: cyclobenzapr ine Not Available Not Available Not Available ipratropium 0.5 mg-albuterol 3 mg (2.5 mg base)/3 mL nebulization soln 2018 active Medication ID: [id number] Durat ion Value: 8 Brand Name: ipratropium- albuterol Se nd Method: E-Prescribed Subs Allowed: subs OK Special Instruction: INHALE 1 AMPULE USING A NEBULIZER FOUR TIMES DAILY ONLY FOR WHEEZING & NOT FOR COUGH Medica tionGenericN soo: ipratropium- albuterol Not Available Not Available Not Available ranitidine 300 mg tablet 2018 active Medication ID: [id number] Durat ion Value: 30 Brand Name: ranitidine HCl Send Method: E-Prescribed Subs Allowed: subs OK Special Instruction: TAKE 1 TABLET TWICE DAILY Medica tionGenericN soo: ranitidine HCl Not Available Not Available Not Available metoprolol succinate ER 100 mg tablet,exten ded release 24 hr 2018 active Medication ID: [id number] Durat ion Value: 30 Brand Name: metoprolol succinate Se nd Method: E-Prescribed Subs Allowed: subs OK Special Instruction: TAKE 1 TABLET EVERY EVENING Medi cationGeneri cName: metoprolol succinate Not Available Not Available Not Available clobetasol 0.05 % topical cream 2018 active Medication ID: [id number] Durat ion Value: 15 Brand Name: clobetasol S end Method: E-Prescribed Subs Allowed: subs OK Special Instruction: APPLY TO THE AFFECTED AREA(S) SPARINGLY TWICE DAILY Medica tionGenericN soo: clobetasol Not Available Not Available Not Available clopidogrel 75 mg tablet 2018 active Medication ID: [id number] Durat ion Value: 30 Brand Name: clopidogrel Send Method: E-Prescribed Subs Allowed: subs OK Special Instruction: TAKE 1 TABLET EVERYDAY AT NOON Medicat ionGenericNa me: clopidogrel Not Available Not Available Not Available aspirin 81 mg tablet,delay ed release 2018 active Medication ID: [id number] Durat ion Value: 30 Brand Name: aspirin Send Method: E-Prescribed Subs Allowed: subs OK Special Instruction: TAKE 1 TABLET EVERY MORNING Medi cationGeneri cName: aspirin Not Available Not Available Not Available levothyroxin e 75 mcg tablet 2018 active Medication ID: [id number] Durat ion Value: 30 Brand Name: levothyroxin e Send Method: E-Prescribed Subs Allowed: subs OK Special Instruction: TAKE 1 TABLET EVERY MORNING Medi cationGeneri cName: levothyroxin e Not Available Not Available Not Available dicyclomine 20 mg tablet 2018 active Medication ID: [id number] Durat ion Value: 30 Brand Name: dicyclomine Send Method: E-Prescribed Subs Allowed: subs OK Special Instruction: TAKE 1 TABLET BY MOUTH 2-4 TIMES PER DAY Medicati onGenericNam e: dicyclomine Not Available Not Available Not Available verapamil ER (PM) 300 mg capsule 24hr pellet CT,ext.relea se 2018 active Medication ID: [id number] Durat ion Value: 30 Brand Name: verapamil Se nd Method: E-Prescribed Subs Allowed: subs OK Special Instruction: TAKE 1 CAPSULE EVERY DAY AT NOON Medicat ionGenericNa me: verapamil Not Available Not Available Not Available nitroglyceri n 0.4 mg sublingual tablet 2018 active Medication ID: [id number] Durat ion Value: 8 Brand Name: nitroglyceri n Send Method: E-Prescribed Subs Allowed: subs OK Special Instruction: DISSOLVE 1 TABLET UNDER THE TONGUE EVERY 5 MINUTES NEEDED FOR CHEST PAIN. DO NOT EXCEED A TOTAL OF 3 DOSES IN 15 MINUTES. Med icationGener icName: nitroglyceri n Not Available Not Available Not Available docusate sodium 100 mg capsule 2018 active Medication ID: [id number] Durat ion Value: 30 Brand Name: docusate sodium Send Method: E-Prescribed Subs Allowed: subs OK Special Instruction: TAKE 1 CAPSULE TWICE DAILY IN THE MORNING AND IN THE EVENING Medi cationGeneri cName: docusate sodium Not Available Not Available Not Available montelukast 10 mg tablet 2018 active Medication ID: [id number] Durat ion Value: 30 Brand Name: montelukast Send Method: E-Prescribed Subs Allowed: subs OK Special Instruction: TAKE 1 TABLET BY MOUTH EVERY MORNING Medi cationGeneri cName: montelukast Not Available Not Available Not Available Proventil HFA 90 mcg/actuatio n aerosol inhaler 2018 active Medication ID: [id number] Durat ion Value: 18 Brand Name: Proventil HFA Send Method: E-Prescribed Subs Allowed: subs OK Special Instruction: INHALE 2 PUFFS BY MOUTH EVERY 4 TO 6 HOURS NEEDED Medic ationGeneric Name: Proventil HFA Not Available Not Available Not Available hydralazine 50 mg tablet 2018 active Medication ID: [id number] Durat ion Value: 30 Brand Name: hydralazine Send Method: E-Prescribed Subs Allowed: subs OK Special Instruction: TAKE 1 TABLET THREE TIMES DAILY IN THE MORNING, AT NOON, AND IN THE EV ENING may take extra dose if blood pressure is elevated Med icationGener icName: hydralazine Not Available Not Available Not Available furosemide 20 mg tablet 2018 active Medication ID: [id number] Durat ion Value: 30 Brand Name: furosemide S end Method: E-Prescribed Subs Allowed: subs OK Special Instruction: TAKE 1 TABLET EVERY MORNING Medi cationGeneri cName: furosemide Not Available Not Available Not Available polyethylene glycol 3350 17 gram/dose oral powder 2018 active Medication ID: [id number] Durat ion Value: 30 Brand Name: polyethylene glycol 3350 Send Method: E-Prescribed Subs Allowed: subs OK Special Instruction: TAKE 17 GM MIXED IN 8 OUNCES OF WATER ONCE DAILY Medica tionGenericN soo: polyethylene glycol 3350 Not Available Not Available Not Available betamethason e dipropionate 0.05 % topical ointment 2018 active Medication ID: [id number] Durat ion Value: 15 Brand Name: betamethason e dipropionate Send Method: E-Prescribed Subs Allowed: subs OK Special Instruction: APPLY TO THE AFFECTED AREA(S) SPARINGLY TWICE DAILY Medica tionGenericN soo: betamethason e dipropionate Not Available Not Available Not Available losartan 100 mg tablet 2018 active Medication ID: [id number] Durat ion Value: 30 Brand Name: losartan Sen d Method: E-Prescribed Subs Allowed: subs OK Special Instruction: TAKE 1 TABLET EVERY DAY AT NOON Medicat ionGenericNa me: losartan Not Available Not Available Not Available fluticasone propionate 50 mcg/actuatio n nasal spray,suspen jenny 2018 active Medication ID: [id number] Durat ion Value: 30 Brand Name: fluticasone propionate S end Method: E-Prescribed Subs Allowed: subs OK Special Instruction: USE 2 SPRAYS IN EACH NOSTRIL EVERY DAY Medicati onGenericNam e: fluticasone propionate Not Available Not Available Not Available Mapap Arthritis Pain 650 mg tablet,exten ded release 2018 active Medication ID: [id number] Durat ion Value: 30 Brand Name: Mapap Arthritis Pain Send Method: E-Prescribed Subs Allowed: subs OK Special Instruction: TAKE 1 TABLET BY MOUTH EVERY 8 HOURS NEEDED Medic ationGeneric Name: Mapap Arthritis Pain Not Available Not Available Not Available rosuvastatin 40 mg tablet 2018 active Medication ID: [id number] Durat ion Value: 30 Brand Name: rosuvastatin Send Method: E-Prescribed Subs Allowed: subs OK Special Instruction: TAKE 1 TABLET EVERY EVENING Medi cationGeneri cName: rosuvastatin Not Available Not Available Not Available topiramate 50 mg tablet 2018 active Medication ID: [id number] Durat ion Value: 30 Brand Name: topiramate S end Method: E-Prescribed Subs Allowed: subs OK Special Instruction: TAKE 1 AND 1/2 TABLETS AT BEDTIME Medi cationGeneri cName: topiramate Not Available Not Available Not Available duloxetine 60 mg capsule,steffen yed release 2018 active Medication ID: [id number] Durat ion Value: 30 Brand Name: duloxetine S end Method: E-Prescribed Subs Allowed: subs OK Special Instruction: TAKE 1 CAPSULE BY MOUTH EVERY MORNING Medi cationGeneri cName: duloxetine Not Available Not Available Not Available Flovent HFA 220 mcg/actuatio n aerosol inhaler 2018 active Medication ID: [id number] Durat ion Value: 30 Brand Name: Flovent HFA Send Method: E-Prescribed Subs Allowed: subs OK Special Instruction: INHALE 2 PUFFS TWICE DAILY RINSE MOUTH AFTER USING. Medic ationGeneric Name: Flovent HFA Not Available Not Available Not Available Alaway 0.025 % (0.035 %) eye drops 2018 active Medication ID: [id number] Durat ion Value: 30 Brand Name: Alaway Send Method: E-Prescribed Subs Allowed: subs OK Special Instruction: PLACE 1 DROPS IN EACH EYE TWICE DAILY FOR ITCHING Medi cationGeneri cName: Alaway Not Available Not Available Not Available Vitals Date Recorded Body height Body mass index (BMI) Body weight Provider Name and Address Organization Details Last Updated DateTime 11/03/2023 167.64 cm 37.4 kg/m2 579409.43 g Sangita Sharp [place] - [facility] 11/03/2023 10:33:41 Date Recorded Body height Body mass index (BMI) Body weight Provider Name and Address Organization Details Last Updated DateTime 08/30/2023 167.64 cm 37.4 kg/m2 044838.43 g Sangita Sharp [place] - [facility] 08/30/2023 12:06:43 Social History None recorded. Functional Status None recorded. Mental Status None recorded. Family History Nothing Reported. Medical History No medical history recorded. Gynecological HistoryNo gynecological history recorded. Obstetrics History GPAL:G 0 P 0 0 0 0 Past Encounters Encounter ID Performer Location Encounter Start Date Encounter Closed Date Diagnosis/Indication Diagnosis SNOMED-CT Code Diagnosis ICD10 Code Diagnosis Note [id number] LAURIE HYDE MD [facility] [address] [address] 08/30/2023 10:23:58 08/30/2023 12:24:53 Sensorineural hearing loss of bilateral ears 564946479 H90.3 Mild-moder ate SNHL for both ears.Tympa nogram: Type A for both ears. Impacted c erumen in right ear 7221296332 167222 H61.21 cerumen removed from right ear [id number] LAURIE HYDE MD [facility] [address] [address] 11/03/2023 10:31:27 11/03/2023 10:55:33 Dysphagia 18738732 R13.10 Health Concerns Section Related Observation LastModified by Organization Detai ls LastModified Time None Recorded Concern Status LastModified by Organization Details LastModified Time None Recorded Advance Directives Directive None Recorded Payers Insurance Date Sequence Insurance Name Policy Number Policy Sen Covered Member ID Sen Member ID Guarantor Name 05/21/2024 1 [place] [employer] [facility] [employer] [employer] (MEDICAID) Yuan Pineda [id number] Yuan Pineda Notes Date Note Type Note Provider Name and Address Organization Details Recorded Time 08/30/19 24 text/htm l sao tomean - ipadprogressive hearing losslast test with our office 03/30/2020no previous trial of amplificationno sig noise exposure LAURIE HYDE MD [address] [place] [address], [phone], [facility] - [facility] 08/30/2023 12:25:03 11/03/19 24 text/htm l sao tomean - familydysphagiadifficulty swallow pillshead and neck turn to left side allows to cough pill outonset about 07/2023voice normalno hemoptysisno otalgia tobacco - 1/2ppd LAURIE HYDE MD [address] [place] [address], [phone], [facility] - [facility] 11/03/2023 10:54:25 OBGyn Episode No OBEpisode recorded.
--- OUTSIDE RECORDS SUMMARY | 2024-08-19 17:34 | XMS_ITS ---
Author Organization [facility] Address [address] [place] [address] Care Team Providers Care Vessel Scrapper Name Role Phone Mirella Jara MD, Lasha Primary Care Provide r Medardo Ortega Jr [phone] REASON FOR VISIT pathology Encounters Encounter Location Date Provider Diagnosis [facility] [address] [place] [address] 04/05/2024 Medardo Delgado Jr Plan Of Treatment Next Appt Details Provider Name:Medardo vallecillo Jr, 08/29/2024 03:55:00 PM, [address], [address], [place], [address], Progress Notes * BRIAN WATERSISDOB:[birth year] (64 yo F)Acc No.[id number]:04/05/2024 Patient:?BRIAN WATERSIS :1960???Age:64 Y???Sex:Female Address:[address] [place] [address] [address] [place], [address] * true * Date:? Generated for Deb kay/Hunter/eTransmitting on:?08/19/2024 08:44 AM EDT
--- OUTSIDE RECORDS SUMMARY | 2024-08-19 17:34 | XMS_ITS | Encounter Summary ---
Author Organization [employer] Address [address] [facility] 7t [place] [address] Care Team Providers Care Hadoop Developer Name Role Phone Lasha Marrufo MD Primary Care Provide r Encounter Details Date Type Department Care Team (Late st Contact Info) Description 08/04/2022 Abstract [facility] [address] [place] [address] [phone] Lasha Marrufo MD [address] [place] [address] [phone] Social History Tobacco Use Types Packs/Day Years [...] Description 09/05/2024 2:15 PM EDT Office Visit [facility] [address] [place] [address] [phone] Lasha Marrufo MD [address] [place] [address] [phone] documented as of this encounter Procedures Procedure Name Priority Date/Time Associated Diagnosis Comments MAMMOGRAPHY Routine 08/01/2022 COLONOSCOPY Routine 06/26/2019 documented in this encounter Results * (ABNORMAL) Mammography (08/01/2022) HM Mammogram Birads 0 Anatomical Region Laterality Modality Other 08/01/2022 Narrative 08/01/2022 2:10 PM EDT Birads 0- recommended additional imaging Historical Provider HEALTH MAINTENANCE Final Result * Colonoscopy (06/26/2019) Colonoscopy Normal Normal 06/26/2019 Narrative Tabitha Irene - 06/26/2019 2:53 PM EDT Recommended 5 year follow up ( see scanned notes) Historical Provider HEALTH MAINTENANCE Edited Result - Final documented in this encounter Visit Diagnoses Not on filedocumented in this encounter Care Teams Hadoop Developer Relationship Specialty Start Date End Date Lasha Marrufo MD [address] [place] [phone] PCP - General Internal Medicine 12/25/13 documented as of this encounter
--- OUTSIDE RECORDS SUMMARY | 2024-08-19 17:34 | XMS_ITS | Encounter Summary ---
Author Organization [employer] Address [address] [facility] [address] [place] [address] Care Team Providers Care Pododermatologist Name Role Phone Lasha Marrufo MD Primary Care Provide r Reason for Visit * Reason Onset Date Comments CHART PREP 08/16/2024 Encounter Details Date Type Department Care Team ([facility] st Contact Info) Description 08/16/2024 Telephone [facility] MEDICINE [address] [place], [place] [phone] Sandy Arechiga CNM [address] [place] [address] CHART PREP Social History Tobacco Use Types Packs/Day Years [...] encounter Miscellaneous Notes * Telephone Encounter - Harvinder Main MA - 08/16/2024 11:53 AM EDT Chart Prep Labs: not applicable Images: not applicable Referrals: not applicable Vaccines due: PCV20 Screenings: colonoscopy Overdue care gaps: Not applicable documented in this encounter Plan of Treatment Upcoming Encounters Date Type Department Care Team (Late st Contact Info) Description 09/05/2024 2:15 PM EDT Office Visit [facility] MEDICINE [address] [place] [address] Lasha Marrufo MD [address] [place] [address] documented as of this encounter Goals Goal [...] documented as of this encounter Care Teams Pododermatologist Relationship Specialty Start Date End Date Lasha Marrufo MD [address] [place], [place] [phone] PCP - General Internal Medicine 12/25/13 documented as of this encounter
--- OUTSIDE RECORDS SUMMARY | 2024-08-19 17:34 | XMS_ITS | Encounter Summary ---
Author Organization [employer] Address [address] [facility] [address] [place] [address] Care Team Providers Care Commercial Airplane Pilot Name Role Phone Lasha Marrufo MD Primary Care Provide r Encounter Details Date Type Department Care Team ([facility] Contact Info) Description 06/30/2022 Orders Only [facility] MED[facility]INE [address] [place] [address] [phone] Elsa Julien LPN Social History Tobacco Use [...] Description 09/05/2024 2:15 PM EDT Office Visit [facility] [address] [place] [address] [phone] Lasha Marrufo MD [address] [place], [place] [phone] documented as of this encounter Visit Diagnoses Not on filedocumented in this encounter Care Teams Commercial Airplane Pilot Relationship Specialty Start Date End Date Lasha Marrufo MD [address] [place] [address] PCP - General Internal Medicine 12/25/13 documented as of this encounter
--- OUTSIDE RECORDS SUMMARY | 2024-08-19 17:34 | XMS_ITS | Encounter Summary ---
Author Organization [employer] Address [address] [facility] [address] [place] [address] Care Team Providers Care Social And Human Services Assistant Name Role Phone Lasha Marrufo MD Primary Care Provide r Reason for Visit * Reason Onset Date Comments Nurse Triage 08/16/2024 Encounter Details Date Type Department Care Team ([facility] st Contact Info) Description 08/16/2024 Telephone [facility] MEDICINE [address] [place], [place] [phone] Lasha Marrufo MD [address] [place] [address] Nurse Triage Social History Tobacco Use Types [...] encounter Miscellaneous Notes * Telephone Encounter - Lynn Pettit RN - 08/16/2024 8:56 AM EDT Called pt. [facility] interpreter [id number] [address]. Pt. States that she has been having itchiness in hervaginal area. Pt had cream in the past and pt. Used the cream yesterday and it has not worked. Pt. Has inflammation inside her vaginal area. Pt. Has foul smell and discharge.No fever. Protocol Used: Vaginal Symptoms (Adult) Protocol-Based Disposition: See in Office or Video Visit Today or Tomorrow- Pt. Only wants to see female provider- Advised that she can go to walk in as there is 1 provider in walk in today that is female. Pt declines with worry that she may see a male provider. Advised that there is only a female provider working tomorrow in [facility] walk in from 9-12. Pt unsure if she can make it tomorrow. Appt. Given for 08/19/24 with Sandy at 2pm but, if pt. Can go tomorrow, she will cancel 08/19/24 appt. Positive Triage Questions: * Moderate-Severe itching (i.e., interferes with school, work, or sleep) * Vaginal itching and not improved > 3 days following Care Advice * Vaginal odor (bad smell) not improved > 3 days following Care Advice * Patient wants to be seen * All higher-acuity triage questions were negative * Telephone Encounter - Ceciliajudy Cee - 08/16/2024 8:26 AM EDT Symptom: Vaginal Symptoms - Not Bleeding Outcome: Schedule an appointment to be seen within 24 hours Reason: Caller denied all higher acuity questions The caller accepted this outcome. documented in this encounter Plan of Treatment Upcoming Encounters Date Type Department Care Team (Late st Contact Info) Description 09/05/2024 2:15 PM EDT Office Visit [facility] MEDICINE [address] [place] [address] Lasha Marrufo MD [address] [place] [address] documented as of this encounter Goals Goal [...] documented as of this encounter Care Teams Social And Human Services Assistant Relationship Specialty Start Date End Date Lasha Marrufo MD [address] [place] [address] PCP - General Internal Medicine 12/25/13 documented as of this encounter
--- OUTSIDE RECORDS SUMMARY | 2024-08-19 17:34 | XMS_ITS | Encounter Summary ---
Author Organization [employer] Address [address] [facility] 7[address] [place] [address] Care Team Providers Care Manager Of Software Name Role Phone Lasha Marrufo MD Primary Care Provide r Encounter Details Date Type Department Care Team (Late st Contact Info) Description 05/03/2022 Orders Only [facility] MEDICINE [address] [place] [phone] Elsa Julien LPN Social History Tobacco Use [...] Description 09/05/2024 2:15 PM EDT Office Visit [facility] [address] [place] [phone] Lasha Marrufo MD [address] [place] [phone] documented as of this encounter Visit Diagnoses Not on filedocumented in this encounter Care Teams Manager Of Software Relationship Specialty Start Date End Date Lasha Marrufo MD [address] [place] [phone] PCP - General Internal Medicine 12/25/13 documented as of this encounter
--- OUTSIDE RECORDS SUMMARY | 2024-08-19 17:34 | XMS_ITS | Encounter Summary ---
Author Organization [employer] Address [address] [facility] 7[address] [place] [address] Care Team Providers Care Senior Technical Trainer Name Role Phone Lasha Marrufo MD Primary Care Provide r Encounter Details Date Type Department Care Team (Latest Contact Info) Description 08/19/2024 Travel Social History Tobacco Use Types Packs/Day Years [...] Access Q2 Not on file 02/05/2024 Comments No Sex and Gender Information Value Date Recorded Sex Assigned at Female 01/31/2022 10:22 AM EDT Legal Sex Female 10:22 AM EDT Gender Identity Female 01/31/2022 10:22 AM EDT Sexual Orientation Straight 01/31/2022 10 :22 AM EDT documented as of this encounter Plan of Treatment Upcoming Encounters Date Type Department Care Team (Late st Contact Info) Description 09/05/2024 2:15 PM EDT Office Visit [facility] MEDICINE [address] [place] [address] Lasha Marrufo MD [address] [place] [address] documented as of this encounter Goals Goal [...] documented as of this encounter Care Teams Senior Technical Trainer Relationship Specialty Start Date End Date Lasha Marrufo MD [address] [place] [address] PCP - General Internal Medicine 12/25/13 documented as of this encounter
--- OUTSIDE RECORDS SUMMARY | 2024-08-19 17:34 | XMS_ITS | Encounter Summary ---
Author Organization [employer] Address [address] [facility] 7t [place] [address] Care Team Providers Care Analytics Intern Name Role Phone Lasha Marrufo MD Primary Care Provide r Encounter Details Date Type Department Care Team ([facility] st Contact Info) Description 02/19/[address] [facility] MEDICINE [address] [place], [place] [phone] Lasha Marrufo MD [address] [place], [place] [phone] Social History Tobacco Use Types Packs/Day Years Used Date Smoking Tobacco: Every Day Cigarettes Passive Smoke Exposure: Current Depression Answer Date Recorded Patient Health Questionnaire-9 Score 2 07/18/2023 Patient Health Questionnaire-9 Score 2 07/18/2023 Last PHQ-9: Questionnaire Data Not on file 0 07/18/2023 Housing Stability Answer Date Recorded What is your housing situation today? I have ara wilmar 07/18/[address] you li [...] 09/05/2024 2:15 PM EDT Office Visit [facility] MED[facility] [address] [place] [phone] Lasha Marrufo MD [address] [place] [address] documented as of this encounter Goals Goal [...] documented as of this encounter Care Teams Analytics Intern Relationship Specialty Start Date End Date Lasha Marrufo MD [address] [place] [phone] PCP - General Internal Medicine 12/25/13 documented as of this encounter
--- OUTSIDE RECORDS SUMMARY | 2024-08-19 17:34 | XMS_ITS | Encounter Summary ---
Author Organization [employer] Address [address] [facility] [address] [place] [address] Care Team Providers Care Marketing Reporting Analyst Name Role Phone Lasha Marrufo MD Primary Care Provide r Reason for Visit * Reason Comments Gynecologic Exam Encounter Details Date Type Department Care Team ([facility] st Contact Info) Description 08/19/2024 2:00 PM EDT Office Visit [facility] MEDICINE [address] [place], [place] [phone] Sandy Arechiga CNM [address] [place] [address] Vaginal itching (Primary Dx) Social History Tobacco Use Types [...] AM EDT documented as of this encounter Last Filed Vital Signs Vital Sign Reading Time Taken Comments Blood Pressure 121/73 08/19/2024 2:00 PM EDT Pulse 72 08/19/2024 2:00 PM EDT Temperature 36.2 ??C (97.2 ??F) 08/19/2024 2:00 PM ED T Respiratory Rate 20 08/19/2024 2:00 PM EDT Oxygen Saturation - - Inhaled Oxygen Concentration - - Weight 102 kg (225 lb 6.4 oz) 08/19/2024 2:00 PM EDT Height 167.6 cm (5' 6 ) 08/19/2024 2:00 PM EDT Body Mass Index 36.38 08/19/2024 2:00 PM EDT documented in this encounter Progress Notes * Sandy Arechiga CNM - 08/19/2024 2:00 PM EDT Subjective Patient ID: Arianna Pineda is a 64 y.o. female who presents for vaginal symptoms Treated for bacterial vaginosis 09/2023 and rx'd suppressive MetroGel due to recurrent symptoms. It sounds like she didn't use MetroGel twice weekly, but started using it recently for vaginal irritation. Notes irritation for about 6 days. No vaginal bleeding. No true dysuria but skin irritated when urine touches skin. Not sexually active, no new partners since last STI testing. Gonorrhea/Chlamydia/trichomonas negative from that visit. Pap NIL/HPV neg 09/2021. Mammogram BIRADs 2, cat b 08/2023 No worrisome findings with uterus or ovaries on CT from 10/2023. Review of Systems Genitourinary: Positive for vaginal discharge. Objective BP 121/73 (BP Location: Left arm, Patient Position: Sitting, BP Cuff Size: Large adult) Pulse 72 Temp 97.2 ??F (36.2 ??C) (Temporal) Resp 20 Ht 5' 6 (1.676 m) Wt 225 lb 6.4 oz (102 kg) LMP (LMP Unknown) BMI 36.38 kg/m?? Physical Exam Constitutional: Appearance: Normal appearance. Genitourinary: General: Normal vulva. Labia: Right: No rash, tenderness, lesion or injury. Left: No rash, tenderness, lesion or injury. Vagina: No signs of injury and foreign body. Vaginal discharge and erythema present. No tenderness,bleeding, lesions or prolapsed vaginal mckeon. Cervix: Normal. No cervical motion tenderness, discharge, friability, lesion, erythema, cervical bleeding or eversion. Uterus: Normal. Not enlarged and not tender. Adnexa: Right adnexa normal and left adnexa normal. Right: No mass, tenderness or fullness. Left: No mass, tenderness or fullness. Comments: Curdy discharge Neurological: Mental Status: She is alert. Psychiatric: Mood and Affect: Mood normal. Behavior: Behavior normal. Assessment/Plan Diagnoses and all orders for this visit: Vaginal itching - POCT fern test, vaginal fluid manually resulted - Bacterial Vaginosis Panel Consistent with vulvovaginal candidiasis. For fluconazole as prescribed. Avoid vaginal irritants. Report worsening or persistent symptoms. Don't use MetroGel at this time. Will send bacterial vaginosis swab as precaution, as she has had recurrent bacterial vaginosis in the past. If bacterial vaginosis noted, will treat. Other orders - fluconazole (Diflucan) 150 MG tablet; Take 1 tablet (150 mg) by mouth 1 (one) time for 1 dose. documented in this encounter Plan of Treatment Upcoming Encounters Date Type Department Care Team (Late st Contact Info) Description 09/05/2024 2:15 PM EDT Office Visit [facility] MEDICINE [address] [place] [phone] Lasha Marrufo MD [address] [place] [address] Scheduled Orders Name Type Priority Associated Diagnoses Orde r Schedule Bacterial Vaginosis Panel Microbiology Routine Vaginal itching Ordered: 08/19/2024 documented as of this encounter Goals Goal Patient Goal Type Associated Problems Recent Progress Patient-Stated? Author Smoking cessation General No Willa Chaparro Help patient manage nicotine dependency General No Willa Chaparro documented as of this encounter Procedures Procedure Name Priority Date/Time Associated Diagnosis Comments POCT WET MOUNT/MEENU Routine 08/19/2024 2: 30 PM EDT Vaginal itching documented in this encounter Results * POCT fern test, vaginal fluid manually resulted (08/19/2024 2:30 PM EDT) MEENU Prep Positive Comment:pH 4.5, neg whiff, n eg clue, neg trich, pos yeast, neg wbc Vaginal Fluid Vaginal structure / Unknown 08/19/2024 2:30 PM EDT Impressions Sandy Arechiga CNM - 08/19/2024 2:30 PM EDT Vulvovaginal candidiasis Sandy Arechiga CNM POINT OF CARE TEST ENTER/ EDIT ORDERABLES Final Result documented in this encounter Visit Diagnoses Diagnosis Vaginal itching- Primary Pruritus of genital organs documented in this encounter Additional Health Concerns Assessment Noted Time PHQ-9 Depression Total Score: 2 07/18/19 24 2:07 PM EDT documented as of this encounter Care Teams Marketing Reporting Analyst Relationship Specialty Start Date End Date Lasha Marrufo MD [address] [place] [address] PCP - General Internal Medicine 12/25/13 documented as of this encounter
--- OUTSIDE RECORDS SUMMARY | 2024-08-19 17:34 | XMS_ITS ---
Author Organization [facility] Address [address] [place] [address] [place] [phone] Care Team Providers Care Window Machine Operator Name Role Phone Mirella Jara MD, Lasha Primary Care Provide r Medardo Ortega Jr REASON FOR VISIT abn ugi series Encounters Encounter Location Date Provider Diagnosis [facility] Outpatient [address] [place] [phone] 04/02/2024 Medardo Delgado Jr Abnormal UGI series R93.3 Assessments Encounter Date Diagnosis (ICD Code) Assessment Notes Treatment Notes Treatment Clinical Notes Section Notes 04/02/2024 Abnormal UGI series (ICD-10 - R93.3) Plan Of Treatment Next Appt Details Provider Name:Medrado vallecillo Jr, 08/29/2024 03:55:00 PM, [address] [place] [address], [facility], [place], [phone], Progress Notes * FRANTZ WATERSOB:[birth year] (64 yo F)Acc No.[id number]:04/02/2024 EGD/MAC Patient:?YUAN WATERS Provider:?Medardo Delgado MD :1960???Age:64 Y???Sex:Female D ate:04/02/2024 Address:[address] [place], [place] [phone] Pcp:Lasha holcomb MD Subjective: * Chief Complaints: * ???1. Abn ugi series. * Medical History:? Objective: * Vitals:? Assessment: * Assessment: 1.?Abnormal UGI series - R93 .3 (Primary)??? Plan: * Treatment: * Procedure Codes:?04052 UPPER GI ENDOSCOPY, BIOPSY * * The named appointment provid er may or may not be the originator of this progress note, and it is not deemed complete until electronically signed by the appointment provider. Sign off status: Pending * Provider:?Medardo Delgado MD Date:?1 Generated for Deb kay/Hunter/eTransmitting on:?08/19/2024 05:33 PM EDT
--- OUTSIDE RECORDS SUMMARY | 2024-08-19 17:34 | XMS_ITS | Clinical Summary ---
Author Organization [employer] Address [address] [facility] 7t [place] [address] Care Team Providers Care Casino Floorperson Name Role Phone Lasha Marrufo MD Primary Care Provide r Allergies Active Allergy Reactions Criticality Noted Date Comments Acetaminophen 05/26/2016 Codeine Unknown 05/26/2016 Pseudoephedrine 06/29/2022 Shellfish Allergy 10/03/2022 Medications aspirin (ASPIR) 81 MG EC tablet Take 81 mg by mouth in the morning. Active topiramate 50 MG tablet Take 1 tablet by mouth at bed time. Active hydrOXYzine HCl (Atarax) 25 MG tabletIndication s:Anxiety TAKE 1 TABLET BY MOUTH THREE TIMES DAILY NEEDED 30 tablet 3 023 Active Blood Glucose Monitoring Suppl (5to1 Blood Glucose) w/Device kitIndications:T ype 2 diabetes mellitus without complication, without long-term current use of insulin ([facility]) 1 kit 2 times daily. 1 kit 023 Active glucose blood test stripIndications :Type 2 diabetes mellitus without complication, without long-term current use of insulin ([facility]) 1 each by Other route 2 times daily. 100 each 12 023 Active fluticasone (Flonase) 50 MCG/ACT nasal sprayIndications :Seasonal allergies INHALE 2 SPRAYS IN EACH NOSTRIL [...] ATERIAL ES ALTO) Active TRUEplus Lancets [facility] [place] TEST BLOOD SUGAR TWICE DAILY Active magnesium oxide (Mag-Ox) 400 (240 Mg) MG tablet Take 400 mg by mouth in the morning. Active trospium (Sanctura) 20 MG tablet TAKE 1 TABLET BY MOUTH EVERY DAY TOMELA ALGUNAS HORAS ANTES DE DORMIR Active ipratropium-albu terol (Duo-Neb) 0.5-2.5 mg/3 mL nebulizer solution INHALE [...] AFTER MEALS AND AT BEDTIME NEEDED Active polyethylene glycol, PEG, 3350 (HM ClearLax) 17 GM/SCOOP powder MIX 2 SCOOP IN 8 OUNCES OF WATER AND DRINK ONCE DAILY 510 g 3 Active cyclobenzaprine (Flexeril) 5 MG tabletIndication s:Spasm of muscle TAKE 1 TABLET BY MOUTH THREE TIMES DAILY NEEDED FOR MUSCLE SPASMS 30 tablet Active levothyroxine (Synthroid, Levoxyl) 75 MCG tabletIndication s:Acquired hypothyroidism TAKE 1 TABLET BY MOUTH EVERY MORNING 90 tablet 1 025 Active montelukast (Singulair) 10 MG tabletIndication s:Mild intermittent asthma without complication TAKE 1 TABLET BY MOUTH EVERY EVENING 90 tablet 1 025 Active metFORMIN XR (Glucophage-XR) 500 MG 24 hr tablet TAKE 2 TABLETS BY MOUTH TWICE DAILY IN THE MORNING AND EVENING 360 tablet 1 Active Dulaglutide (Trulicity) 0.75 MG/0.5ML solution auto-injectorInd ications:Type 2 diabetes mellitus without complication, unspecified whether termination clerk insulin use ([facility]) Inject 0.75 mg under the skin 1 (one) time per week. INJECT ONE PEN (=0.75MG) SUBCUTANEOUSLY ONCE A WEEK DIRECTEDINJECT ONE PEN (=0.75MG) SUBCUTANEOUSLY ONCE A WEEK DIRECTED 2 mL 1 Active DULoxetine (Cymbalta) [address] capsule TAKE 1 CAPSULE BY MOUTH EVERY MORNING 30 capsule 5 Active butalbital-aceta minophen-caffein e 50-325-40 MG tabletIndication s:Acute non intractable tension-type headache TAKE 1 TABLET BY MOUTH EVERY DAY AT ONSET OF HEADACHE MAY REPEAT IN 12 HOURS NEEDED 20 tablet Active fluconazole (Diflucan) 150 MG tablet Take 1 tablet (150 mg) by mouth 1 (one) time for 1 dose. 1 tablet 025 2024 Active DULoxetine (Cymbalta) [address] capsule TAKE 1 CAPSULE BY MOUTH EVERY MORNING 30 capsule 5 024 2024 Discontinued Trulicity 0.75 MG/0.5ML solution auto-injectorInd ications:Type 2 diabetes mellitus without complication, unspecified whether retirement insulin use ([facility]) INJECT ONE PEN (=0.75MG) SUBCUTANEOUSLY ONCE A WEEK DIRECTED 2 mL 2 025 2024 Discontinued(R eorder (will not trigger notification to Pharmacy)) butalbital-aceta minophen-caffein e 50-325-40 MG tabletIndication s:Acute non intractable tension-type headache TAKE 1 TABLET BY MOUTH EVERY DAY AT ONSET OF HEADACHE MAY REPEAT IN 12 HOURS NEEDED 20 tablet 025 2024 Discontinued(R eorder (will not trigger notification to Pharmacy)) Active Problems Problem Noted Date Diagnosed Date Right knee pain 04/18/2024 Preventative health care 07/18/2023 Assessment & Plan (10/12/2023 11:21 AM EDT): Mammogram: 08/2023 Normal Pap Smear: NL 09/2021 will need a repeat [id number] Colonoscopy: 06/2019 Dr Delgado, Tubular adenoma Vaccines: Td Pt claims she had one in [place] in 2013. Assessment & Plan (07/18/2023 1:58 PM EDT): Mammogram: 04/12/2023 Normal Pap Smear: NL 09/2021 will need a repeat [id number] Colonoscopy: 06/2019 Dr Delgado, Tubular adenoma Vaccines: Flu shot Td Pt claims she had one in [place] in 2013. Abdominal wall hernia 07/18/2023 Assessment [...] 11:40 AM EST): Under the care of Fabric Pattern Grader Unfortunately continues to smoke, not interested in [...] Encounters Date Type Department Care Team Description 08/19/2024 2:00 PM EDT Office Visit [facility] [address] [place] [phone] Sandy Arechiga CNM Vaginal itching (Primary Dx) 08/19/2024 Travel 08/16/2024 Telephone [facility] [address] [place] [address] Sandy Arechiga CNM CHART PREP 08/16/2024 Telephone [facility] [address] [place] [address] Lasha Marrufo MD Nurse Triage 08/08/2024 Refill [facility] [address] [place] [address] Lasha Marrufo MD Acute non intractable tension-type headache 08/05/2024 Refill [facility] [address] [place] [address] Lasha Marrufo MD 08/02/2024 Refill [facility] [address] [place] [address] Lasha Marrufo MD Type 2 diabetes mellitus without complication, unspecified whether retirement insulin use ([facility]) 07/18/2024 Refill [facility] [address] [place] [address] Lasha Marrufo MD Acute non intractable tension-type headache 07/04/2024 Telephone [facility] [address] [place] [address] Lasha Marrufo MD Nurse Triage 06/30/2024 Refill [facility] [address] [place], [place] [phone] Lasha Marrufo MD 06/14/2024 Population Health Risk Score [facility] () Department [address] [place] [phone] Provider, Population Health Generic 06/04/2024 Refill [facility] [address] [place] [address] Lasha Marrufo MD Acute non intractable tension-type headache from Last 3 Months Immunizations Immunization Administration Dates Next Due Influenza Injectable Quadriv [...] uit: Not Asked; Counseling Given: Not Answered Depression Answer Date Recorded Patient Health Questionnaire-9 [...] 20 08/19/2024 2:00 PM EDT Oxygen Saturation 93% 10/12/2023 11:11 AM EDT Inhaled Oxygen Concentration - - Weight 102 kg (225 lb 6.4 oz) 08/19/2024 2:00 PM EDT Height 167.6 cm (5' 6 ) 08/19/2024 2:00 PM EDT Body Mass Index 36.38 08/19/2024 2:00 PM EDT Plan of Treatment Upcoming Encounters Date Type Department Care Team (Late st Contact Info) Description 09/05/2024 2:15 PM EDT Office Visit [facility] [address] [place] [address] Lasha Marrufo MD [address] [place] [address] Health Maintenance Due Date Last Done Comments [...] Protein Screening 06/30/2023 06/29/2022 COVID-19 Vaccine ( season) 2023 06/29/2020, 06/01/2020 Dental Oral Exam 04/12/2024 10/10/2023, 02/25/2014 Colonoscopy 06/25/2024 06/26/2019 Colorectal Cancer Screening 06/25/2024 Depression Screening 07/17/2024 07/18/2023, 07/18/19 24 Diabetes: Hemoglobin A1C 08/12/2024 024, 07/18/2023, 07/23/2021 Lipid Panel 08/23/2024 08/24/2023, 06/02, 05/11/2021, Additional history exists Mammogram 08/23/2024 08/24/2023, 04/03, 08/17/2022, Additional history exists Eye Exam 09/09/2024 09/09/2022, 12/2022, 09/09/2022, Additional history exists Pap Smear 09/27/2024 09/27/2021 Alcohol/Substance Use Screening 02/12/2025 02/13/2024 Disability Screening 02/12/2025 02/13/2024 SDOH Screening 02/12/2025 02/13/2024 Tobacco Screening 08/19/2025 08/19/2024 Cervical Cancer Screening 09/27/2026 HPV/Cotest 09/27/2026 09/27/2021 [...] 08/19/2024 2: 30 PM EDT Vaginal itching POCT GLYCOSYLATED HEMOGLOBIN (HGB A1C) Routine 02/13/2024 11:13 AM EST Type 2 diabetes mellitus without complication, without long-term current use of insulin ([facility]) PANORAMIC RADIOGRAPHIC IMAGE Routine 10/10/2023 11:00 AM [...] Recently Relevant to Health Maintenance Results * POCT fern test, vaginal fluid manually resulted (08/19/2024 2:30 PM EDT) ME[facility] Prep Positive Comment:pH 4.5, neg whiff, n eg clue, neg trich, pos yeast, neg wbc Vaginal Fluid Vaginal structure / Unknown 08/19/2024 2:30 PM EDT [facility] Sandy Arechiga CNM - 08/19/2024 2:30 PM EDT Vulvovaginal candidiasis Sandy Arechiga CNM POINT OF CARE TEST ENTER/ EDIT ORDERABLES Final Result * (ABNORMAL) POCT glycosylated hemoglobin (Hgb A1c) (02/13/2024 11:13 AM EST) Pathologist [facility] Hemoglobin A1C 6.2(A) 4.0 - 6.0 % QC Media Lot # [id number] Lot# Expiration Date ,026 Blood Capillary blood specimen / Unknown 02/13/2024 11:13 AM EST us Lasha Jara MD POINT OF CARE TEST EN TER/EDIT ORDERABLES Final Result * BI Mammogram Screening Tomosynthesis Bilateral (08/24/2023 10:15 AM EDT) Anatomical Region Laterality Modality Breast Bilateral Mammography 08/24/2023 10:1 5 AM EDT Narrative 09/03/2023 7:42 PM EDT ? [facility] ? [address] ?[place] [address] ? Mammography Report ? Signed ? Patient: Arianna Pineda ?MR#: [id number] ?? [id number] ? : 1960 ?Acct:[id number] ? Age/Sex: 63 / F ?ADM Date: 08/24/23 ? Loc: HO.MAMMO ? Attending Dr: Lasha Castillo MD ? Ordering Physician: Lasha Castillo MD ?Resu ?? lts: 2Benign Findings ? Date of Service: 08/23/ ?Follow Up: 1 Year From Orig ?? inal Mammogram ? Procedure(s): MM tomosynthesis screening BI ?? Accession Number(s): [id number] ? cc: Lasha Castillo MD ? EXAMINATION: [...] 1937 ? DD/ 1015 ? TD/TT: ? Junior Marketing Associate: ? Procedure Note Kerrie, [place] - 09/03/2023 Shyann [facility] [address] [place], [place] [address] Mammography Report Signed Patient: Arianna Pineda EMR#: [id number] : 1Acct:[id number] Age/Sex: 63 / FADM Date: 08/24/23 Loc: HO.MAMMO Attending Dr: Lasha Castillo MD Ordering Physician: Lasha Castillo MDResu lts: 2Benign Findings Date of Service: 08/24/23Follow Up: 1 Year From Orig inal Mammogram Procedure(s): MM tomosynthesis screening BI Accession Number(s): [id number] cc: Lasha Castillo MD EXAMINATION: MM SCREENING [...] in OV> 09/03/23 1937 DD/ 1015 TD/TT: Junior Marketing Associate: us Lasha Jara MD IMG BI PROCEDURES Adama lanre Result - Final * (ABNORMAL) Lipid Panel with Reflex to Direct LDL (08/24/2023 8:30 AM EDT) Triglycerides 148 <150 mg/dL [facility] Comment:Desirable Triglyceri de: less than 150 mg/dLBorderline High Triglyceride 150-199 mg/dLHigh Triglyceride: 200-499 mg/dLVery High Triglyceride: greater than or equal to 5OO mg/dL Cholesterol 113 <200 mg/dL [facility] Comment:Desirable Cholestero l: less than 200 mg/dLBorderline High Cholesterol: 200-239 mg/dLHigh Cholesterol: greater than 239 mg/dL LDL Cholesterol Calculated 51 <100 mg/dL [facility] Comment:Desirable LDL: less than 100 mg/dLNear Optimal/Above Optimal LDL: 110- 129 mg/dLBorderline High LDL: 130-159 mg/dLHigh LDL: 160-189 mg/dLVery High LDL: greater than or equal to 190 mg/dL HDL Cholesterol 33(L) >40 mg/dL [facility] Comment:Desirable HDL: great er than 40 mg/dL Note: This HDL assay may give artificially low results in patients with liver disease. Blood 08/24/2023 8:30 AM EDT 08/24/2023 11:29 AM EDT us Lasha Jara MD LAB BLOOD ORDERABLES Final Result [facility] [address] [place] [phone] * Albumin, Random Urine W/Creatinine (06/29/2022 12:01 PM EDT) Creatinine, Random Urine 112 20 - 275 mg/dL [facility] Albumin, Urine 2.0 See Note: mg/dL [facility] Comment: Reference Range: Reference Range Not established Albumin/Creatinin e Ratio, Random Urine 18 <30 mcg/mg creat D2S Comment: The ADA defines abnormalities in albumin [...] 06/30/2022 5:17 PM EDT SPLIT 06/29/2022 FROM [id number] Lasha Jara MD LAB URINE ORDERABLES Final Result Performing Organization Address [facility] Co de Phone Number [address], [place] [address] [facility] [address] [place] [phone] * Hepatitis C Antibody with Reflex to HCV, RNA, Quantitative, Real-Time PCR (06/29/2022 9:03 AM EDT) Hepatitis C Antibody NON-REACT BROCK NON-REACT BROCK D2S Index 0.07 <1.00 D2S Comment: HCV antibody was non-reactive. There is no laboratory evidence of HCV infection. In most cases, no further action is required. However, if recent HCV exposure is suspected, a test for HCV RNA (test code 40883) is suggested. For additional information please refer to http://education.[employer]/faq/WNP63i2 (This link is being provided for informational/ educational purposes only.) 06/29/2022 9:03 AM EDT 06/29/2022 9:04 AM EDT Narrative [facility] - 06/29/2022 10:21 PM EDT FASTING:NO PATIENT UNABLE TO VOID; ADVISED TO RETURN FOR COLLECTION. FASTING: NO Lasha Jara MD LAB BLOOD ORDERABLES Final Result Performing Organization Address [facility] Co de Phone Number [address], [place] [address] [facility] [employer] [address] [place] [phone] * THINPREP TIS PAP AND HPV mRNA E6/E7 WITH REFLEX TO HPV 16,18/45 (09/27/2021 9:43 AM EDT) Clinical Information: None given [facility] COMMENT SEE COMMENT [facility]OUNDAT[facility] ON [...] has been evaluated with computer assisted technology. [facility] Cytotechnologis t: SEE COMMENT [facility] Comment: JD, CT(ASCP) CT screening location: [address] ??[address] HPV nRNA E6/E7 Not Detected Not Detected [facility] Comment: Methodology: Music Orchestrator-Mediated Amplification This assay detects E6/E7 viral messenger RNA (mRNA) from 14 high-risk HPV types (16,18,31,33,35,39,45,51,52,56,58,59,66,68). ? Cervical sources are required for HPV testing. If a vaginal source from a patient who has had a total hysterectomy with removal of cervix was ?? submitted, please contact the testing laboratory for alternative testing options. ?? For additional information, please refer to http://education.[employer]/faq/KVM860q4 (This link if provided for information/ educational purposes only.) Interpretation/ Result: Negative for intraepithelial lesion or malignancy. [facility] LMP: [facility] Prev. BX: NONE GIVEN [facility] Prev. PAP: NIL 11/16 [facility] SOURCE: None given [facility] Statement Of Adequacy: SEE COMMENT [facility] Comment: Satisfactory for evaluation. Endocervical/transformation zone component present. 09/27/2021 9:43 AM EDT us Sandy Arechiga CNM LAB PATHOLOGY ORDERABLES Final Result [facility] [address] [place] [phone], * Colonoscopy (06/26/2019) Colonoscopy Normal Normal 06/26/2019 Irene Zavala - 06/26/2019 2:53 PM EDT Recommended 5 year follow up ( see scanned notes) us Historical Provider HEALTH MAINTENANCE Edited Result - Final from Last 3 Months or Most Recently Relevant to Health Maintenance Insurance [facility] MEDICAID STAND ADULT Care Teams Casino Floorperson Relationship Specialty Start Date End Date Lasha Marrufo MD [address] [place] [phone] PCP - General Internal Medicine 12/25/13
--- OUTSIDE RECORDS SUMMARY | 2024-08-19 17:34 | XMS_ITS ---
Author Organization [facility] Address [address] [place] [address] Care Team Providers Care Post Closing Specialist Name Role Phone Mirella Jara MD, Lasha Primary Care Provide r Medardo Ortega Jr REASON FOR VISIT labs Encounters Encounter Location Date Provider Diagnosis [facility] [address] [place] [address] 04/02/2024 Medardo Delgado Jr Plan Of Treatment Next Appt Details Provider Name:Medardo vallecillo Jr, 08/29/2024 03:55:00 PM, [address], [address], [place], [address], Progress Notes * BRIAN WAT[birth year]ISDOB:[birth year] (64 yo F)Acc No.[id number]:04/02/2024 Patient:?WATERSBRIANIS :1960???Age:64 Y???Sex:Female Address:[address] [place] [address] [address] [place], [address] * true * Date:? Generated for Deb kay/Hunter/eTransmitting on:?08/19/2024 05:34 PM EDT
[2024-08-19 18:39] LABS: Bacterial Vaginosis PCR POSITIVE (Negative); Candida Group PCR DETECTED (Not Detect); Candida glab krusei PCR DETECTED (Not Detect); Trichomonas vaginalis PCR NOT DETECTED (Not Detect)
== END 2024-08-19 17:31 | disposition home or self-care (01) ==
LOC: HO.HHCLNP 17:30
PROVIDERS: Visit Provider Advanced Practice Midwife
DX: N89.8 Other specified noninflammatory disorders of vagina (principal)
CPT/HCPCS: 81515

== ENCOUNTER 2024-08-29 10:40 | Outpatient (REF) | payer MEDICAID, SELFPAY ==
--- OUTSIDE RECORDS SUMMARY | 2024-08-29 11:12 | XMS_ITS | Encounter Summary ---
Author Organization [employer] Address [address] [facility] 7t [place] [address] Care Team Providers Care Water Safety Teacher Name Role Phone Lasha Marrufo MD Primary Care Provide r Encounter Details Date Type Department Care Team (Late st Contact Info) Description 08/22/2022 Abstract [facility] [address] [place] [address] [phone] Lasha Marrufo MD [address] [place] [address] [phone] Social History Tobacco Use Types Packs/Day Years [...] Description 09/05/2024 2:15 PM EDT Office Visit [facility] [address] [place] [address] [phone] Lasha Marrufo MD [address] [place] [address] [phone] documented as of this encounter Procedures Procedure [...] on filedocumented in this encounter Care Teams Water Safety Teacher Relationship Specialty Start Date End Date Lasha Marrufo MD [address] [place] [phone] PCP - General Internal Medicine 12/25/13 documented as of this encounter
== END 2024-08-29 10:41 | disposition home or self-care (01) ==
LOC: HO.MAMMO 10:40
PROVIDERS: PCP Internal Medicine; Visit Provider Internal Medicine
DX: Z12.31 Encounter for screening mammogram for malignant neoplasm of breast (principal)
CPT/HCPCS: 77063; 77067

== ENCOUNTER → 2024-08-29 10:45 | Outpatient (BNV) | payer MEDICAID, SELFPAY | PROVIDERS: PCP Internal Medicine; Visit Provider Internal Medicine | DX: Z12.31 Encounter for screening mammogram for malignant neoplasm of breast (principal) | CPT/HCPCS: 77063; 77067 ==

== ENCOUNTER 2024-10-03 14:44 | Outpatient (AMB) | payer MEDICAID, SELFPAY ==
--- OUTSIDE RECORDS SUMMARY | 2024-10-03 14:47 | XMS_ITS | Data Portability ---
Author Organization [place] - [facility], Allergy Address [address] [address] Care Team Providers Care Ultrasound Coordinator Name Role Phone SARA XAVIER Primary Care [...] copy of the audiogram, a list of [facility] hearing aid providers, and medical clearance for [...] recorded . Imaging barium swallow study - english speaker 2023 024 [facility] Diagnosit Imaging Dept, [address] [place], [address], 11:05:06 Medication Orders None recorded . Patient [...] Available 04:24:52 05/01/19 25 04/30/2024 XR, esoph agram See Note [facility] , a member of [facility] Jason greene Name: YUAN MORALES Date of : 1959 Reason for Exam: DYSPHA SAVANAH, UNSPEC IFIED Exam Date: 2024 [id number] EST Report Status : Final Orderi ng Provid er: LAURIE HYDE PCP: PIOTR GS: Double contra st esopha gram perfor med. COMPAR BENJAMIN: No prior esopha gram imagin g HISTOR Y: Jason greene is a 64-yea r-old female with histor y of dyspha savanah, GERD. 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, [place], [address], 05/15/2024 18:16:30 Result Notes Documentation Provider Name and Address Organization Details Recorded Time Xr, Esophagram : See Note [facility], a member of [employer] Patient Name: YUAN WATERS Date of : 1960 Reason for Exam: DYSPHAGIA, UNSPECIFIED Exam Date: 04/30/2024 [id number] EST Report Status: Final Ordering Provider: LAURIE HYDE PCP: FINDINGS: Double contrast esophagram performed. COMPARISON: No prior esophagram imaging HISTORY: Patient is a 64-year-old female with history of dysphagia, GERD. 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 Air Kerma: 118.30 mGy IMPRESSION: Moderate esophageal dysmotility, otherwise normal double contrast esophagram. -------- FINAL REPORT -------- Dictated By: Halley Fishman Dictated Date: 04/30/2024 12:58 ET Assigned Physician: Alexia العلي Reviewed and Electronically Signed By: Alexia العلي Signed Date: 05/01/2024 16:24 ET Workstation ID: [id number] Transcribed By: Self Edit Transcribed Date: 04/30/2024 13:04 ET Resident/PA/TRANSCRIPTIONIST: Halley Fishman MD [address] [place] [address], [address], [place] - [facility] 05/15/2024 18:16:30 Problems Name Problem SNOMED Code Status Onset Date Resolution Date Notes Provider Name and Address Organization Details Recorded Time Otalgia of left ear 4423904241 Active 2018 Otalgia, left ear; Note: Date Diagnosed : 07/11/2018 1:20 PM (H92.02) Not Available [facility] 4 02:22:05 Sensorine ural hearing loss of bilateral ears 506679729 Active 2019 Sensorine ural hearing loss, bilateral ; Note: Date Diagnosed : 0 2:11 PM (H90.3) Not Available [facility] 4 02:22:06 Impacted cerumen in right ear [id number] 15550 Active 2023 LAURIE HYDE MD 100 [facility] [place] [address], [place], [address] , [place] - [facility] 4 12:23:59 Dysphagia 48972360 Active 2023 LAURIE HYDE MD 100 [facility] [place] [address], [place], [address] , [place] - [facility] 4 10:45:04 Problem Notes None recorded. Procedures Surgical History Date Name Laterality Status Provider Name and Address Organization Details Recorded Time 11/03/2023 FOL_DP completed LAURIE HYDE MD [address] [place] [address],[place] [address], [place], [address], [place] - [facility] 11/03/2023 10:45:32 08/30/2023 Wax_DP completed LAURIE HYDE MD [address] [place] [address],[place] [address], [place], [address], [place] [facility] 08/30/2023 12:23:50 08/30/2023 Air only Audio - [id number] completed SHWETA ALLEN MA, CCC-A [address] [facility],[place] [address], [place], [address], [place] - [facility] 08/30/2023 11:05:08 08/30/2023 SRT & Tymps - 83350 & 25971 completed SHWETA ALLEN MA, CCC-A [address] [facility],[place] [address], [place], [address], [place] [facility] 08/30/2023 11:05:44 Imaging Results None recorded. Procedure Notes None recorded. Medical Equipment None Reported. Allergies Allergen ID Allergen Name Allergen Category Reaction Reaction Severity Criticality Documentation Date Start Date Code Code System Note Provider Name and Address Organization Details Recorded Time 16484 pseudoeph edrine Not available other Not available Not available 08/15/2023 8896 RxNorm React ion: unkno wn, unspe cifie d;; Not Available [facility] 00:54:32 Medications Name Sig Start Date Stop Date Status Note LastModified by Organization Details LastModified Time cyclobenzapr ine 10 mg tablet 2018 active Medication ID: [id number] Durat ion Value: 10 Brand Name: cyclobenzapr ine Send Method: E-Prescribed Subs Allowed: subs OK Special Instruction: TAKE 1 TABLET BY MOUTH THREE TIMES DAILY Medica tionGenericN soo: cyclobenzapr ine Not Available Not Available Not Available ipratropium 0.5 mg-albuterol 3 mg (2.5 mg base)/3 mL nebulization soln 2018 active Medication ID: [id number] Durat ion Value: 8 Brand Name: ipratropium- albuterol Se nd Method: E-Prescribed Subs Allowed: subs OK Special Instruction: INHALE 1 AMPULE USING A NEBULIZER FOUR TIMES DAILY ONLY FOR WHEEZING & NOT FOR COUGH Medica tionGenericN soo: ipratropium- albuterol Not Available Not Available Not Available ranitidine 300 mg tablet 2018 active Medication ID: [id number] Durat ion Value: 30 Brand Name: ranitidine HCl Send Method: E-Prescribed Subs Allowed: subs OK Special Instruction: TAKE 1 TABLET TWICE DAILY Medica tionGenericN soo: ranitidine HCl Not Available Not Available Not Available metoprolol succinate ER 100 mg tablet,exten ded release 24 hr 2018 active Medication ID: [id number] Durat ion Value: 30 Brand Name: metoprolol succinate Se nd Method: E-Prescribed Subs Allowed: subs OK Special Instruction: TAKE 1 TABLET EVERY EVENING Medi cationGeneri cName: metoprolol succinate Not Available Not Available Not Available clobetasol 0.05 % topical cream 2018 active Medication ID: [id number] Durat ion Value: 15 Brand Name: clobetasol S end Method: E-Prescribed Subs Allowed: subs OK Special Instruction: APPLY TO THE AFFECTED AREA(S) SPARINGLY TWICE DAILY Medica tionGenericN soo: clobetasol Not Available Not Available Not Available clopidogrel 75 mg tablet 2018 active Medication ID: [id number] Durat ion Value: 30 Brand Name: clopidogrel Send Method: E-Prescribed Subs Allowed: subs OK Special Instruction: TAKE 1 TABLET EVERYDAY AT [facility] [facility] me: clopidogrel Not Available Not Available Not Available aspirin 81 mg tablet,delay ed release 2018 active Medication ID: [id number] Durat ion Value: 30 Brand Name: aspirin Send Method: E-Prescribed Subs Allowed: subs OK Special Instruction: TAKE 1 TABLET EVERY MORNING Medi cationGeneri cName: aspirin Not Available Not Available Not Available levothyroxin e 75 mcg tablet 2018 active Medication ID: [id number] Durat ion Value: 30 Brand Name: levothyroxin e Send Method: E-Prescribed Subs Allowed: subs OK Special Instruction: TAKE 1 TABLET EVERY MORNING Medi cationGeneri cName: levothyroxin e Not Available Not Available Not Available dicyclomine 20 mg tablet 2018 active Medication ID: [id number] Durat ion Value: 30 Brand Name: dicyclomine Send Method: E-Prescribed Subs Allowed: subs OK Special Instruction: TAKE 1 TABLET BY MOUTH 2-4 TIMES PER DAY Medicati onGenericNam e: dicyclomine Not Available Not Available Not Available verapamil ER (PM) 300 mg capsule 24hr pellet CT,ext.relea se 2018 active Medication ID: [id number] Durat ion Value: 30 Brand Name: verapamil Se nd Method: E-Prescribed Subs Allowed: subs OK Special Instruction: TAKE 1 CAPSULE EVERY DAY AT NOON [facility] me: verapamil Not Available Not Available Not Available nitroglyceri n 0.4 mg sublingual tablet 2018 active Medication ID: [id number] Durat ion Value: 8 Brand Name: nitroglyceri n Send Method: E-Prescribed Subs Allowed: subs OK Special Instruction: DISSOLVE 1 TABLET UNDER THE TONGUE EVERY 5 MINUTES NEEDED FOR CHEST PAIN. DO NOT EXCEED A TOTAL OF 3 DOSES IN 15 MINUTES. Med icationGener icName: nitroglyceri n Not Available Not Available Not Available docusate sodium 100 mg capsule 2018 active Medication ID: [id number] Durat ion Value: 30 Brand Name: docusate sodium Send Method: E-Prescribed Subs Allowed: subs OK Special Instruction: TAKE 1 CAPSULE TWICE DAILY IN THE MORNING AND IN THE EVENING Medi cationGeneri cName: docusate sodium Not Available Not Available Not Available montelukast 10 mg tablet 2018 active Medication ID: [id number] Durat ion Value: 30 Brand Name: montelukast Send Method: E-Prescribed Subs Allowed: subs OK Special Instruction: TAKE 1 TABLET BY MOUTH EVERY MORNING Medi cationGeneri cName: montelukast Not Available Not Available Not Available Proventil HFA 90 mcg/actuatio n aerosol inhaler 2018 active Medication ID: [id number] Durat ion Value: 18 Brand Name: Proventil HFA Send Method: E-Prescribed Subs Allowed: subs OK Special Instruction: INHALE 2 PUFFS BY MOUTH EVERY 4 TO 6 HOURS NEEDED Medic ationGeneric Name: Proventil HFA Not Available Not Available Not Available hydralazine 50 mg tablet 2018 active Medication ID: [id number] Durat ion Value: 30 Brand Name: hydralazine Send Method: E-Prescribed Subs Allowed: subs OK Special Instruction: TAKE 1 TABLET THREE TIMES DAILY IN THE MORNING, AT NOON, AND IN THE EV ENING may take extra dose if blood pressure is elevated Med icationGener icName: hydralazine Not Available Not Available Not Available furosemide 20 mg tablet 2018 active Medication ID: [id number] Durat ion Value: 30 Brand Name: furosemide S end Method: E-Prescribed Subs Allowed: subs OK Special Instruction: TAKE 1 TABLET EVERY MORNING [facility] cationGeneri cName: furosemide Not Available Not Available Not Available polyethylene glycol 3350 17 gram/dose oral powder 2018 active Medication ID: [id number] Durat ion Value: 30 Brand Name: polyethylene glycol 3350 Send Method: E-Prescribed Subs Allowed: subs OK Special Instruction: TAKE 17 GM MIXED IN 8 OUNCES OF WATER ONCE DAILY Medica tionGenericN soo: polyethylene glycol 3350 Not Available Not Available Not Available betamethason e dipropionate 0.05 % topical ointment 2018 active Medication ID: [id number] Durat ion Value: 15 Brand Name: betamethason e dipropionate Send Method: E-Prescribed Subs Allowed: subs OK Special Instruction: APPLY TO THE AFFECTED AREA(S) SPARINGLY TWICE DAILY Medica tionGenericN soo: betamethason e dipropionate Not Available Not Available Not Available losartan 100 mg tablet 2018 active Medication ID: [id number] Durat ion Value: 30 Brand Name: losartan Sen d Method: E-Prescribed Subs Allowed: subs OK Special Instruction: TAKE 1 TABLET EVERY DAY AT NOON Medicat ionGenericNa me: losartan Not Available Not Available Not Available fluticasone propionate 50 mcg/actuatio n nasal spray,suspen jenny 2018 active Medication ID: [id number] Durat ion Value: 30 Brand Name: fluticasone propionate S end Method: E-Prescribed Subs Allowed: subs OK Special Instruction: USE 2 SPRAYS IN EACH NOSTRIL EVERY DAY Medicati onGenericNam e: fluticasone propionate Not Available Not Available Not Available Mapap Arthritis Pain 650 mg tablet,exten ded release 2018 active Medication ID: [id number] Durat ion Value: 30 Brand Name: Mapap Arthritis Pain Send Method: E-Prescribed Subs Allowed: subs OK Special Instruction: TAKE 1 TABLET BY MOUTH EVERY 8 HOURS NEEDED Medic ationGeneric Name: Mapap Arthritis Pain Not Available Not Available Not Available rosuvastatin 40 mg tablet 2018 active Medication ID: [id number] Durat ion Value: 30 Brand Name: rosuvastatin Send Method: E-Prescribed Subs Allowed: subs OK Special Instruction: TAKE 1 TABLET EVERY EVENING Medi cationGeneri cName: rosuvastatin Not Available Not Available Not Available topiramate 50 mg tablet 2018 active Medication ID: [id number] Durat ion Value: 30 Brand Name: topiramate S end Method: E-Prescribed Subs Allowed: subs OK Special Instruction: TAKE 1 AND 1/2 TABLETS AT BEDTIME Medi cationGeneri cName: topiramate Not Available Not Available Not Available duloxetine 60 mg capsule,steffen yed release 2018 active Medication ID: [id number] Durat ion Value: 30 Brand Name: duloxetine S end Method: E-Prescribed Subs Allowed: subs OK Special Instruction: TAKE 1 CAPSULE BY MOUTH EVERY MORNING Medi cationGeneri cName: duloxetine Not Available Not Available Not Available Flovent HFA 220 mcg/actuatio n aerosol inhaler 2018 active Medication ID: [id number] Durat ion Value: 30 Brand Name: Flovent HFA Send Method: E-Prescribed Subs Allowed: subs OK Special Instruction: INHALE 2 PUFFS TWICE DAILY RINSE MOUTH AFTER USING. Medic ationGeneric Name: Flovent HFA Not Available Not Available Not Available Alaway 0.025 % (0.035 %) eye drops 2018 active Medication ID: [id number] Durat ion Value: 30 Brand Name: Castro Send Method: E-Prescribed Subs Allowed: subs OK Special Instruction: PLACE 1 DROPS IN EACH EYE TWICE DAILY FOR ITCHING Medi cationGeneri cName: Alaway Not Available Not Available Not Available Vitals Date Recorded Body height Body mass index (BMI) Body weight Provider Name and Address Organization Details Last Updated DateTime 08/30/2023 167.64 cm 37.4 kg/m2 339754.43 g Sangita Sharp [facility] 08/30/2023 12:06:43 Date Recorded Body height Body mass index (BMI) Body weight Provider Name and Address Organization Details Last Updated DateTime 11/03/2023 167.64 cm 37.4 kg/m2 384284.43 g Sangita Sharp [facility] 11/03/2023 10:33:41 Social History None recorded. Functional Status None recorded. Mental Status None recorded. Family History Nothing Reported. Medical History No medical history recorded. Gynecological HistoryNo gynecological history recorded. Obstetrics History GPAL:G 0 P 0 0 0 0 Past Encounters Encounter ID Performer Location Encounter Start Date Encounter Closed Date Diagnosis/Indication Diagnosis SNOMED-CT Code Diagnosis ICD10 Code Diagnosis Note [id number] LAURIE HYDE MD [facility] [address] [address] 08/30/2023 10:23:58 08/30/2023 12:24:53 Sensorineural hearing loss of bilateral ears 213170745 H90.3 Mild-moder ate SNHL for both ears.Tympa nogram: Type A for both ears. Impacted c erumen in right ear [id number] 886109 H61.21 cerumen removed from right ear [id number] LAURIE HYDE MD [facility] [address] [address] 11/03/2023 10:31:27 11/03/2023 10:55:33 Dysphagia 70782522 R13.10 Health Concerns Section Related Observation LastModified by Organization Detai ls LastModified Time None Recorded Concern Status LastModified by Organization Details LastModified Time None Recorded Advance Directives Directive None Recorded Payers Insurance Date Sequence Insurance Name Policy Number Policy Sen Covered Member ID Sen Member ID Guarantor Name 05/21/2024 1 [place] [employer] (MEDICAID) Yuan Waters [id number] Yuan Waters Notes Date Note Type Note Provider Name and Address Organization Details Recorded Time 08/30/19 24 text/htm l english - ipadprogressive hearing losslast test with our office 03/30/2020no previous trial of amplificationno sig noise exposure LAURIE HYDE MD [address] [facility],[address], [address], [facility] 08/30/2023 12:25:03 11/03/19 24 text/htm l english - familydysphagiadifficulty swallow pillshead and neck turn to left side allows to cough pill outonset about 07/2023voice normalno hemoptysisno otalgia tobacco - 1/2ppd LAURIE HYDE MD [address] [facility],[place] [address], [place], [address], [facility] - [facility] 11/03/2023 10:54:25 OBGyn Episode No OBEpisode recorded.
--- OUTSIDE RECORDS SUMMARY | 2024-10-03 14:47 | XMS_ITS | Encounter Summary ---
Author Organization [employer] Address [address] [facility] [address] [place] [address] Care Team Providers Care Wiping Cloth Cutter Name Role Phone Lasha Marrufo MD Primary Care Provide r Encounter Details Date Type Department Care Team (Late st Contact Info) Description 08/22/2022 Abstract [facility] [address] [place] [address] [phone] Lasha Marrufo MD [address] [place] [address] [phone] Social History Tobacco Use Types Packs/Day Years [...] Care Team (Late st Contact Info) Description 12/10/2024 1:15 PM EDT Office Visit [facility] [address] [place] [address] [phone] Lasha Marrufo MD [address] [place] [address] [phone] documented as of this encounter Procedures Procedure [...] on filedocumented in this encounter Care Teams Wiping Cloth Cutter Relationship Specialty Start Date End Date Lasha aMrrufo MD [address] [place] [phone] PCP - General Internal Medicine 12/25/13 documented as of this encounter
--- OUTSIDE RECORDS SUMMARY | 2024-10-03 14:47 | XMS_ITS | Clinical Summary ---
Author Organization [facility] Address [address] [place] [address] Phone Care Team Providers Care Soft Work Wrapper Layer And Examiner Name Role Phone Lasha Castillo MD Primary Care Provi av Social History Tobacco Use Types Packs/Day Years Used Date Smoking Tobacco: Never Assessed Comments Unknown Sex and Gender Information Value Date Recorded Sex Assigned at Female 04/18/2024 1:44 PM EST Legal Sex Female 9:10 PM EST Gender Identity Female 04/18/2024 1:44 PM EST Sexual Orientation Straight 04/18/2024 1: 44 PM EST Plan of Treatment Upcoming Encounters Date Type Department Care Team (Late st Contact Info) Description 11/27/2024 10:45 AM EDT Consult Orthopedic Surgery - [place] [address] [address] Estevan Viramontes, MIAH [address] [address] Health Maintenance Due Date Last Done Comments [...] Influencers of Health Screening 04/28/2023 COVID-19 Vaccine (3 - season) 2023 06/29/2020, 06/01/2020 Diabetes: Annual Urine [...] to complete this topic [place] Care Teams Soft Work Wrapper Layer And Examiner Relationship Specialty Start Date End Date Lasha Castillo MD [address] [place] [id number] PCP - General Internal Medicine 09/09/24
--- OUTSIDE RECORDS SUMMARY | 2024-10-03 14:47 | XMS_ITS | Patient Health Record ---
Author Organization [facility] Address [address] [place] [address] Care Team Providers Care Rug Dyer Helper Name Role Phone Mirella Jara MD, Lasha Primary Care Provide Medardo Thornton Jr Unavailable [phone] Allergies Allergen (clinical drug ingredient) Drug/Non Drug Allergy documented on EMR Reaction Allergy Type Onset Date Status codeine Codeine Sulfate Unknown Drug Allergy A ctive Results Component Value Reference Range Notes Complete Blood Count no Diff Reviewed date:04/02/2024 02:01:30 PM Interpretation: Performing Lab:[facility], [address] [place] [address] Notes/Report: White Blood Count 8.0 4.8-10.8 X10*3/uL [...] Panel Reviewed date:04/02/2024 02:01:14 PM Interpretation: Performing Lab:[facility], [address] [place] [phone] Notes/Report: Bilirubin Total 0.2 0.0-1.0 mg/dL Bilirubin Direct < 0.2 0.0-0.5 mg/dL Aspartate Amino Transferase 21 5-31 U/L Alanine Aminotransferase 22 0-31 U/L Total Protein 7.7 6.5-8.0 g/dL Albumin Level 4.1 3.5-5.0 g/dL Alkaline Phosphatase 128 39-117 U/L IRON PROFILE Reviewed date:04/02/2024 02:01:24 PM Interpretation: Performing Lab:[facility], [address] [place] [phone] Notes/Report: Iron 41 30-160 mcg/dL Total Iron Binding Capacity 335 228-428 mcg/d L Percent Iron Saturation 12 15-50 % Unsaturated Iron Binding 294 Ferritin Reviewed date:04/02/2024 02:01:49 PM Interpretation: Performing Lab:[facility], [address] [place] [phone] Notes/Report: Ferritin 11 10-250 ng/mL Liver Fibrosis Pnl Reviewed date:04/08/2024 08:30:50 AM Interpretation: Performing Lab:[facility], [address] [place] [phone] Notes/Report: Liver Fibrosis Score 0.19 Liver Fibrosis [...] a>0.62 and a<=1.00 : A3 (severe activity) UPV-Rnvvt-0-Macroglobulin 219 106-279 mg/dL FIB-Haptoglobin 217 43-212 mg/dL FIB-Apolipoprotein A1 153 101-198 mg/dL FIB-Total Bilirubin 0.2 0.2-1.2 mg/dL FIB-GGT 119 3-65 U/L FIB-ALT 14 6-29 U/L Reference ID [id number] Footnote SEE NOTE The reliability of results is dependent on compliance with the preanalytical and analytical conditions recommended by [employer]. The tests have to be deferred for: [...] The performance characteristics have been determined by [facility]. It has not been cleared or approved by the U.S. Food and Drug Administration. Performance characteristics refer to the analytical performance of the test. [employer], the associated logo, [employer] and all associated [employer] givens are the registered trademarks of [employer]. All third constitution party givens - (R) and (TM) - are the property of their respective owners. (C) 6729-9811 [employer]. All rights reserved. THIS TEST WAS PERFORMED AT: [facility] [address] [place] [address] TRAVIS BOO MD,PHD,TRINY SANDEEP Reflex Titer and Pattern Reviewed date:04/05/2024 02:03:11 PM Interpretation: Performing Lab:[facility], [address] [place] [phone] Notes/Report: Anti Nuclear Antibody Screen NEGATIVE NEGATIVE [...] Negative International Consensus on SANDEEP Patterns (https://doi.org/10.1515/c xum-0730-4846) For additional information, please refer to http://education.[employer]/faq/ROF063 (This link is being provided for informational/ educational purposes only.) THIS TEST WAS PERFORMED AT: [facility] [address] [place] [id number] JEAN PAUL LEWIS MD Anti Nuclear Antibody Titer TNP Anti Nuclear Antibody Pattern TNP SANDEEP Titer 2 TNP SANDEEP Pattern 2 TNP SANDEEP Titer 3 TNP SANDEEP Pattern 3 TNP Mitochondrial Antibody Reviewed date:04/09/2024 03:01:22 PM Interpretation: Performing Lab:[facility], [address] [place] [phone] Notes/Report: Mitochondrial Antibodies NEGATIVE NEGATIVE The specimen was negative for cytoplasmic antibodies, however additional staining was observed suggesting the presence of Antinuclear Antibodies. Consider requesting order code 249, SANDEEP Screen, IFA with Reflex to Titer and Pattern, or order code [id number], SANDEEP Screen, IFA w/reflex Titer/Pattern, and Reflex to Multiplex 11 Ab Firestone, if clinically indicated. THIS TEST WAS PERFORMED AT: [facility] [address] [address] JEAN PAUL LEWIS MD Mitochondrial Ab Titer TNP Smooth Muscle Antibody Reviewed date:04/09/2024 03:01:16 PM Interpretation: Performing Lab:[address] [address] Notes/Report: Smooth Muscle Antibody 25 <20 U [...] type 1. THIS TEST WAS PERFORMED AT: [facility]/[address] [address] SIGRID MOLINA MD,PHD Hepatitis A,B,C Profile Reviewed date:04/02/2024 02:01:41 PM Interpretation: Performing Lab:[facility], [address] [place] [phone] Notes/Report: Hepatitis A Antibody IgM Nonreactive Nonreactive [...] Blood Reviewed date:04/02/2024 01:59:23 PM Interpretation: Performing Lab:[facility], [address] [place] [phone] Notes/Report: Glucose, Whole Blood 106 60-115 mg/dL METER # : [id number] Pathology Reviewed date:04/05/2024 03:24:48 PM Interpretation: Performing Lab:[address] [address] Notes/Report: Reason For Referral Referring Provider First Name Lasha Referring Provider Last Name Mirella perez Referring Provider Speciality Internal M edicine Referred Organization [facility] Referred Provider eMdardo Delgado Jr Referred Address [address] [place] [address],[place] [address],[place],[address],[place] Referred Provider Specialty Gastroentero miguel General Notes Sherrie Christiansonn 2024 09:59:43 AM >requested a [facility] referral from [facility] for visit with dr akins on 08-29-24 Referral Priority Routine Medications Medication SIG (Take, Route, Frequency, Duration) Notes Start Date End Date Status Duloxetine & Lidocaine-Menthol 60 & 5-3 MG & % as directed Combination Acti ve Docusate Sodium 100 MG 1 capsule as need ed Orally Once a day for 30 day(s) Active Singulair 10 MG 1 tablet in the even ing Orally Once a day Active Verapamil HCl 80 MG 1 tablet Orally Thre e times a day Active Losartan Potassium-HCTZ 50-12.5 MG 1 tablet Orally Once a day A ctive Synthroid 75 MCG 1 tablet Orally Once a day Active Aspir-81 81 MG 1 tablet Orally Once a day Active Topamax 50 MG 3 tablet Orally daily Active Levothyroxine Sodium Active Fluticasone Propionate 50 MCG/ACT USE 2 SPRAYS IN EACH NOSTRIL EVERY DAY Nasal for 30 Active Toprol XL 100 MG 1 tablet Orally Once a day Active hydrALAZINE HCl 25 MG 1 tablet Orally th ree x a day Active Famotidine 40 MG 1 tablet Orally ever y 12 hrs for 30 days 02/26/2019 Active Topiramate 50 MG TAKE 1 AND 1/2 TABLE TS BY MOUTH AT BEDTIME Oral for 30 Active DULoxetine HCl 60 MG TAKE 1 CAPSULE BY M OUTH EVERY MORNING Oral for 30 Active Simethicone 180 MG 1 capsule after meal s and at bedtime as needed Orally Twice a day for 30 days 08/31/2023 Active Polyethylene Glycol 3350 - 1 packet mixe d with 8 ounces of fluid Orally Once a day for 90 days 02/21/2016 Active Dicyclomine HCl 20 MG 1 tablet Orally 2- 4 times a day for 30 days Active ClearLax 17 GM/SCOOP 2 scoops in 8 ounce s of water Orally once a day for 30 days 05/24/2022 Active Pepcid 40 MG 1 Orally b.i.d. for 30 days Active Cymbalta Active Montelukast Sodium 10 MG TAKE 1 TABLET B Y MOUTH EVERY EVENING Oral for 30 Active Verapamil HCl ER 300 MG 1 capsule Orally Once a day for 30 day(s) Active Aspirin Low Dose 81 MG TAKE 1 TABLET BY MOUTH EVERY MORNING Oral for 30 Active Magnesium Oxide 400 (240 Mg) MG TAKE 1 TABLET BY MOUTH EVERY MORNING Oral for 30 Active hydrOXYzine HCl 25 MG TAKE 1 TABLET BY M OUTH THREE TIMES DAILY NEEDED Oral for 10 Active metFORMIN HCl ER 500 MG 1 tablet with ev ening meal Orally Once a day for 30 day(s) Active Metoprolol Succinate ER 100 MG TAKE 1 TABLET BY MOUTH EVERY EVENING Oral for 30 Active Hydrocortisone (Perianal) 2.5 % 1 application Externally Twice a day for 90 days 03/03/2022 Active Furosemide 20 MG 1 tablet Orally Once a day for 30 day(s) Active Topiramate ER 50 MG 1 capsule Orally Onc e a day for 30 day(s) Active Trulicity 0.75 MG/0.5ML INJECT ONE PEN ( =0.75MG) SUBCUTANEOUSLY ONCE A WEEK DIRECTED Subcutaneous for 28 Active Rosuvastatin Calcium 40 MG 1 tablet Oral ly Once a day for 30 day(s) Active Celecoxib 200 MG TAKE 1 CAPSULE BY [facility] TWICE DAILY Oral for 30 Active Immunizations Vaccine Route Administration Date Status Comme nts Influenza Unknown 12/02/2018 Administered Influenza Unknown 01/15/2020 Administered Influenza Unknown 01/01/2022 Administered Influenza Unknown 08/31/2023 Refused Problems Problem Type SNOMED Code ICD Code Onset Dates Problem Status W/U Status Risk Notes Problem 51111654 Rectal bleeding (K62.5) Active confirmed Problem 34118999 Constipation (K59.00) Active confirmed Problem Gastroesophageal reflux disease (874721482) Gastroesophageal reflux disease (K21.9) Active confirmed Problem 020207290 Gastroesophageal reflux disease without esophagitis (K21.9) Active confirmed Problem 283668123 Fatty liver (K76.0) Active confirmed Problem 49033550 Hiatal hernia (K44.9) Active confirmed Problem 39665469 Dysphagia, unspecified type (R13.10) Active confirmed Problem 186776410 Abnormal UGI series (R93.3) Active confirmed Problem 814943437 Irritable bowel syndrome with constipation (K58.1) Active confirmed Problem 509529875 GERD without esophagitis (K21.9) Active confirmed Problem 161049947 LUQ pain (R10.12) Active confirmed Problem 535594566 LLQ pain (R10.32) Active confirmed Problem 385711715 Epigastric mass (R19.06) Active confirmed Vital Signs Blood pressure diastolic 77 mm Hg 08/29/2024 Height 66.5 in 08/29/2024 Blood pressure systolic 111 mm Hg 08/29/2024 Weight 225 lbs 08/29/2024 BMI 35.77 kg/m2 08/29/2024 Encounters Encounter Location Date Provider Diagnosis [facility] Outpatient [address] [place] [address] [place] [phone] 04/02/2024 Medardo Delgado Jr Abnormal UGI series R93.3 [facility] [address] [place] [address] [place] [address] 03/14/2024 Medardo Delgado Jr Abnormal UGI series R93.3 ; Dysphagia, unspecified type R13.10 and Fatty liver K76.0 [facility] [address] [place] [phone] 08/29/2024 Medardo Delgado Jr Abdominal pain R10.9 ; Gastroesophageal reflux disease without esophagitis K21.9 and Constipation K59.00 [facility] [address] [place] [phone] 10/16/2023 Medardo Delgado Jr [facility] [address] [place] [phone] 10/17/2023 Medardo Delgado Jr [facility] [address] [place] [phone] 10/26/2023 Medardo Delgado Jr [facility] [address] [place] [phone] 02/19/2024 Medardo Delgado Jr Gastroesophageal reflux disease without esophagitis K21.9 [facility] [address] [place] [phone] 02/21/2024 Medardo Delgado Jr [facility] [address] [place] [phone] 03/19/2024 Medardo Delgado Jr [facility] [address] [place] [phone] 04/02/2024 Medardo Delgado Jr [facility] [address] [place] [address] 04/05/2024 Medardo Delgado Jr Assessments Encounter Date Diagnosis (ICD Code) Assessment Notes Treatment Notes Treatment Clinical Notes Section Notes 04/02/2024 Abnormal UGI series (ICD-10 - R93.3) 03/14/2024 Dysphagia, unspecified type (ICD-10 - R13.10) [...] one year. Today's visit was 30 minutes. 08/29/2024 Abdominal pain (ICD-10 - R10.9) At this time, Yuan is doing well. She will continue Pepcid for her acid reflux which is working well. She will continue dicyclomine for her crampy abdominal discomfort and use simethicone as needed for gas. We refilled her MiraLAX and hydrocortisone . She will have upper abdominal imaging with ultrasound. Follow-up will be in 1 year. 02/19/2024 Gastroesophageal reflux disease without esophagitis (ICD-10 [...] one year. Today's visit was 30 minutes. 08/29/2024 Gastroesophageal reflux disease without esophagitis (ICD-10 - K21.9) At this time, Yuan is doing well. She will continue Pepcid for her acid reflux which is working well. She will continue dicyclomine for her crampy abdominal discomfort and use simethicone as needed for gas. We refilled her MiraLAX and hydrocortisone . She will have upper abdominal imaging with ultrasound. Follow-up will be in 1 year. 08/29/2024 Constipation (ICD-10 - K59.00) At this time, Yuan is doing well. She will continue Pepcid for her acid reflux which is working well. She will continue dicyclomine for her crampy abdominal discomfort and use simethicone as needed for gas. We refilled her MiraLAX and hydrocortisone . She will have upper abdominal imaging with ultrasound. Follow-up will be in 1 year. Plan Of Treatment Pending Test Test Name Order Date BUN 04/13/2020 BUN 01/23/2020 CREATININE 04/13/2020 CREATININE 01/23/2020 LIVER PROFILE 03/14/2024 LIVER PROFILE 01/23/2020 LIPASE 01/23/2020 IRON + IBC (FE) 03/14/2024 FERRITIN 03/14/2024 CBC w/o DIFF 01/23/2020 CBC w/o DIFF 03/14/2024 MITOCHONDRIAL AB 03/14/2024 SMOOTH MUSCLE ANTIBODIES 03/14/2024 CT ABD & PELVIS WITH CONTRAST 01/23/2020 US ABD 08/29/2024 Liver Fibrosis Pnl 03/14/2024 SANDEEP Reflex Titer and Pattern 03/14/2024 Hepatitis A,B,C Profile 03/14/2024 Future Test Test Name Order Date COLONOSCOPY 05/02/2019 UPPER GI ENDOSCOPY 12/23/2020 UPPER GI ENDOSCOPY 03/14/2024 Next Appt Details Provider Name:Medardo vallecillo Jr, 08/14/2025 03:35:00 PM, [address], [address], [place], [address], Insurance Providers Payer Name Payer Address Payer Phone Subscriber Number Group Number Insured Name Patient Relationship to Insured Coverage Start Date Coverage End Date MEDICAID OF [facility] [address] [place] [place] [phone] [id number] YUAN LR Self - patient is the insured Medical (General) History Medical History History ICD Code hypertension obesity Hypothyroidism asthma arthritis SANDEEP + colonoscopy 06/26/19, 1 adenoma, five-yea r followup recommended Gastroesophageal reflux dise ase, EGD/03/23, no Santos's esophagus or H. pylori.EGD 03/26, no H. pylori, Santos's esophagus, or celiac disease. Obstructive sleep apnea type II diabetes Surgical History Surgery Date(Month/Year) knee surgery-right cholecystectomy tubal ligation breast biopsy
--- NOTE | 2024-10-03 14:50 | A.OFFVIS_ITS ---
Vital Signs 10/03/24 14:52 Height 5 ft 6 in Weight 220 lb BMI 35.5 BP 110/74 Intake Visit Reasons: pelvic pain/External Referral Intake Note: c/o of pelvic pain x 1 year Real Estate Rental Agent Required: Yes Real Estate Rental Agent Language: Museum Registrar Services: Real Estate Rental Agent Present (in person) Real Estate Rental Agent Name: Franca HOBSON Information Interpreted: non-clinical & clinical Associate Professor Of Engineering: Associate Professor Of Engineering Present (Franca HOBSON) Accompanied by: Self / Same As Patient Allergies codeine (CODEINE) Allergy (Intermediate, Verified 10/03/24 14:58) LOWERED PLATELETS atorvastatin Allergy (Mild, Verified 10/03/24 14:58) Headache amlodipine Allergy (Unknown, Verified 10/03/24 14:58) Unknown clonidine Allergy (Unknown, Verified 10/03/24 14:58) Unknown shellfish derived (shellfish) Allergy (Unknown, Verified 10/03/24 14:58) Unknown pseudoephedrine (From Sudafed) Allergy (Verified 10/03/24 14:58) Unknown Post menopausal: Yes HPI Comments Details: The patient is presenting with bilateral lower pain started 1-2 months ago. It's intermittent in nature lasting few seconds and occurs 3x/day. it is not associated with constipation, dysuria, frequency incontinence, no n/v, no feverishness PFSH Medical History History of myocardial infarction Nicotine dependence, cigarettes, uncomplicated Asthma with COPD Cough Breast calcification, left Obesity (BMI 30-39.9) Breast mass, right Venous insufficiency Elevated cholesterol CAD (coronary artery disease) GERD (gastroesophageal reflux disease) Arthritis Hypothyroid HTN (hypertension) Asthma Allergic rhinitis JORGE on CPAP Surgical History History of esophagogastroduodenoscopy (EGD) Hx of arthroscopic knee surgery History of total right knee replacement (10/19/17) H/O colonoscopy Family History Father Prostate cancer Diabetes Alzheimer dementia HTN (hypertension) Mother Aneurysm Daughter Diabetes Social History Household Members: None Housing: House Alcohol intake: former Patient Tobacco Use Status: Current everyday Tobacco user Tobacco use type: Cigarette Cigarette Packs Per Day: 0.5 Cigarettes Per Day: 10 Years Smoked: (onset 15yo, x 48yrs, max 2ppd - now 1/2-3/4ppd - 50pyh) Current occupational status: disabled 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 Sexual orientation: Straight/Heterosexual Gender identity: Female Female Reproductive History Menstrual Age of Menarche: 10 Total pregnancies: 3 Full term: 3 Number of Living Children: 3 Review of Systems Const All systems reviewed & are unremarkable except as noted in HPI and below Physical Exam General: Yes no CVA tenderness External Female Exam: normal external appearance and normal appearance of the urethra Speculum Exam - Vagina: normal appearance of the vagina, normal palpation, no lesions and no masses Speculum Exam - Cervix: normal appearance of the cervix, normal palpation, no lesions, no masses and nontender Bimanual exam- vagina & uterus: normal bimanual exam, normal palpation, uterine size normal, normal palpation, uterine shape normal, No Cervical tenderness p resent and non-tender Bimanual Exam- Adnexa, other: normal adnexae Back/Spine/Pelvis Back: no CVA tenderness Assessment & Plan Assessment & Plan (1) Pelvic pain: Code(s): R10.2 - Pelvic and perineal pain Category: Medical Plan: Urine dip done in the office were both negative. GC and chlamydia taken and pelvic ultrasound ordered. Discussed with the patient the differential diagnosis of pelvic pain including but not limited to adnexal, uterine masses, pelvic infections (PID), GI the (Irritable bowel syndrome, diverticulitis, others), musculoskeletal, myofascial pain abdominal wall , adhesions, endometriosis, psychological and others causes. Will check results and treat accordingly. All questions answered, the patient verbalized understanding. Instructed the patient to schedule an ultrasound and a follow-up appointment in 2 weeks. All questions answered, the patient verbalized understanding and agreed with the plan. Orders: Orders US pelvic and transvaginal Today R10.2 - Pelvic and perineal pain Coding Level of Care Code New Pt Level 3 (13358) Diagnoses Pelvic pain R10.2
[2024-10-03 14:52] VITALS: BP 110/74; BMI 35.5
== END 2024-10-03 15:24 | disposition home or self-care (01) ==
LOC: HO.HWS 14:45
PROVIDERS: PCP Internal Medicine; Visit Provider Obstetrics & Gynecology
DX: R10.2 Pelvic and perineal pain (principal)
CPT/HCPCS: 99203

== ENCOUNTER 2024-10-03 14:44 | Outpatient (REF) | payer MEDICAID, SELFPAY ==
[2024-10-03 21:39] LABS: CT PCR NOT DETECTED (Not Detect.); NG PCR NOT DETECTED (Not Detect.)
== END 2024-10-03 14:45 | disposition home or self-care (01) ==
LOC: HO.LNP 14:44
PROVIDERS: PCP Internal Medicine; Visit Provider Obstetrics & Gynecology
DX: R10.2 Pelvic and perineal pain (principal)
CPT/HCPCS: 81002; 87491; 87591; 87626; 88175; 99202

== ENCOUNTER 2024-10-23 08:16 | Outpatient (REF) | payer MEDICAID, SELFPAY ==
--- NOTE | ~2024-10-23 | US_ITS ---
EXAMINATION: US ABDOMEN COMPLETE CLINICAL INFORMATION: Abdominal pain.. COMPARISON: No prior ultrasound. Correlation made with CT abdomen pelvis 10/03/2023. TECHNIQUE: Real-time imaging of the abdominal viscera. FINDINGS: PANCREAS: Visualized portions are unremarkable. ABDOMINAL AORTA: The proximal, mid, and distal segments are normal in caliber. INFERIOR VENA CAVA: Visualized portions are normal. LIVER: Liver is mildly enlarged. Right hepatic lobe measures 22.3 cm. The liver contour is normal. There is diffuse increased liver parenchymal echogenicity, consistent with hepatic steatosis. No focal hepatic lesion. There is no intrahepatic biliary duct dilatation seen. GALLBLADDER: Surgically absent. COMMON BILE DUCT: Mildly prominent measuring 1.2 cm in diameter, likely reservoir effect from cholecystectomy state. RIGHT KIDNEY: No hydronephrosis. No renal calculi or focal parenchymal lesions. The kidney measures 12.6 cm in maximum dimension. LEFT KIDNEY: No hydronephrosis. No renal calculi or focal parenchymal lesions. The kidney measures 12.8 cm in maximum dimension. SPLEEN: The spleen measures 12.7 cm in maximum dimension. FREE FLUID: None. US/US abdomen complete IMPRESSION: 1. Mild hepatic enlargement with diffuse fatty infiltration. No suspicious focal hepatic lesion. 2. Cholecystectomy. 3. Mildly prominent common bile duct at 1.2 cm, likely reservoir state from cholecystectomy. 4. Remainder of the examination is normal. Electronically signed by: Nikunj Zarate MD 10/23/2024 09:43 AM EDT
--- OUTSIDE RECORDS SUMMARY | 2024-10-23 08:29 | XMS_ITS | Encounter Summary ---
Author Organization [employer] Address [address] [facility] [address] [place] [address] Care Team Providers Care Competency Evaluated Nurse Aide Name Role Phone Lasha Marrufo MD Primary Care Provide r Encounter Details Date Type Department Care Team (Late st Contact Info) Description 08/22/2022 Abstract [facility] [address] [place] [address] [phone] Lasha Marrufo MD [address] [place] [address] [phone] Social History Tobacco Use Types Packs/Day Years [...] Description 12/10/2024 1:15 PM EDT Office Visit [facility] [address] [place] [address] [phone] Lasha Marrufo MD [address] [place] [address] [phone] documented as of this encounter Procedures Procedure [...] on filedocumented in this encounter Care Teams Competency Evaluated Nurse Aide Relationship Specialty Start Date End Date Lasha Marrufo MD [address] [place] [phone] PCP - General Internal Medicine 12/25/13 documented as of this encounter
--- OUTSIDE RECORDS SUMMARY | 2024-10-23 08:29 | XMS_ITS | Encounter Summary ---
Author Organization [facility] Address [address] [place] [phone] Phone Care Team Providers Care Psychology Physician Name Role Phone Pcp, Unknown Primary Care Provider Unavailabl e Encounter Details Date Type Department Care Team (Late st Contact Info) Description 08/29/2019 Ancillary Orders [facility] [address] [place] [address] Landy Rossi PA [address] [place] [phone] [email or web address] Social History Tobacco Use Types Packs/Day Years Used Date Smoking Tobacco: Never Assessed Comments Unknown Sex and Gender Information Value Date Recorded Sex Assigned at Not on file Legal Sex Female 8:42 AM EDT Gender Identity Not on file Sexual Orientation Not on file documented as of this encounter Plan of Treatment Not on file documented as of this encounter Results * Holter Monitor 24 Hours (08/29/2019 12:34 PM EDT) Anatomical Region Laterality Modality Heart Other Narrative 08/29/2019 12:51 PM EDT 24-hour monitor: Baseline rhythm is sinus with a minimum heart rate of 62, maximum 101, average 75 bpm. There are no long pauses present. Occasional PACs and PVCs present. There is no patient diary returned. There are no patient event markers. Impression: Normal 24-hour monitor. No patient diary submitted. No patient event markers present. Procedure Note Camron Guerrero MD - 08/29/2019 24-hour monitor: Baseline rhythm is sinus with a minimum heart rate of 62,maximum 101, average 75 bpm. There are no long pauses present.Occasional PACs and PVCs present. There is no patient diary returned.There are no patient event markers. Impression: Normal 24-hour monitor. No patient diary submitted. Nopatient event markers present. Landy [facility] ORDERA BLES Final Result documented in this encounter Visit Diagnoses Diagnosis Palpitations Palpitations documented in this encounter Care Teams Psychology Physician Relationship Specialty Start Date End Date Pcp, Unknown PCP - General 08/29/19 documented as of this encounter Additional Source Comments The information contained in this document represents components of the legal health record. It is not the complete legal health record.[facility]
--- OUTSIDE RECORDS SUMMARY | 2024-10-23 08:30 | XMS_ITS | Clinical Summary ---
Author Organization [facility] Address [address] [place] [address] Phone Care Team Providers Care Hardware Design Engineer Name Role Phone Lasha Castillo MD Primary [...] 10:45 AM EDT Consult Orthopedic Surgery - [place] [address] [address] Estevan Viramontes, MIAH [address] [address] Health Maintenance Due Date Last Done Comments [...] COVID-19 Vaccine ( season) 2023 06/29/2020, 06/01/2020 Depression Screening 04/03/2024 Diabetes: Annual Urine Albumin-Creatinine Ratio (uACR) 04/30/2024 Hypertension/CHF/CAD Annual BMP Blood Test 04/30/2024 Diabetes: Blood Sugar Control Test (HGBA1C) 08/12/2024 02/13/2024 Influenza Vaccine (#1) 2024 4, 02/15/2022, 01/15/2020, Additional history exists DTaP,Tdap,and Td Vaccines (2 - Td or Tdap) 05/23/2027 05/23/2017 Hepatitis C Screening Completed 06/29/2022 HIB Vaccines Aged Out No longer eligi [...] topic Insurance MEDICAID - [place] Care Teams Hardware Design Engineer Relationship Specialty Start Date End Date Lasha Castillo MD [address] [place] [address] PCP - General Internal Medicine 09/09/24
--- OUTSIDE RECORDS SUMMARY | 2024-10-23 08:30 | XMS_ITS | Data Portability ---
Author Organization ID - [facility], Allergy Address [address] [address] Care Team Providers Care Kettle Cleaner Name Role Phone SARA XAVIER Primary Care [...] copy of the audiogram, a list of [facility] hearing aid providers, and medical clearance for [...] recorded . Imaging barium swallow study - nigerian speaker 2023 024 [facility] Diagnosit Imaging Dept, [address] [place], [address], 11:05:06 Medication Orders None recorded . Patient [...] 25 04/30/2024 XR, esoph agram See Note [facility] , a member of [facility] Jason greene Name: YUAN MORALES Date of : 1959 Reason for Exam: DYSPHA SAVANAH, UNSPEC IFIED Exam Date: 2024 [id number] EST Report Status : Final Orderi ng Provid er: LAURIE HYDE PCP: PIOTR GS: Double contra st esopha gram perfor med. COMPAR BENJAMIN: No prior esopha gram imagin g HISTOR Y: Jason greene is a 64-yea r-old female with histor y of dyspha savanah, GERD. 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 raphs: 1 view chest radiog raph [...] Date: 2024 16:24 ET Workst ation ID: [id number] Transc ribed By: Self Edit Transc ribed Date: 2024 13:04 ET Reside nt/PA/ GM/SVP GLOBAL PUBLISHER BUSINESS: Halley Fishman [facility] [address], [place], [address], 05/15/2024 18:16:30 Result Notes Documentation Provider Name and Address Organization Details Recorded Time Xr, Esophagram : See Note [facility], a member of [employer] Patient Name: YUAN WATERS Date of : 1960 Reason for Exam: DYSPHAGIA, UNSPECIFIED Exam Date: 04/30/2024 [id number] EST Report Status: Final Ordering Provider: LAURIE HYDE PCP: FINDINGS: Double contrast esophagram performed. COMPARISON: No prior esophagram imaging HISTORY: Patient is a 64-year-old female with history of dysphagia, GERD. 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raphs: 1 view chest radiograph demonstrates cardiac [...] Signed Date: 05/01/2024 16:24 ET Workstation ID: [id number] Transcribed By: Self Edit Transcribed Date: 04/30/2024 13:04 ET Resident/PA/GM/SVP GLOBAL PUBLISHER BUSINESS: Halley Fishman MD [address] [place] [address], [address], [place] - [facility] 05/15/2024 18:16:30 Problems Name Problem SNOMED Code Status Onset Date Resolution Date Notes Provider Name and Address Organization Details Recorded Time Otalgia of left ear 0993714914 Active 2018 Otalgia, left ear; Note: Date Diagnosed : 07/11/2018 1:20 PM (H92.02) Not Available [facility] 4 02:22:05 Sensorine ural hearing loss of bilateral ears 070627858 Active 2019 Sensorine ural hearing loss, bilateral ; Note: Date Diagnosed : 0 2:11 PM (H90.3) Not Available [facility] 4 02:22:06 Impacted cerumen in right ear 06802710547 19536 Active 2023 LAURIE HYDE MD [address] [facility] [place] [address], [place], [address] , [place] - [facility] 4 12:23:59 Dysphagia 37143250 Active 2023 LAURIE HYDE MD [address] [facility] [place] [address], [place], [address] , [place] - [facility] 4 10:45:04 Problem Notes None recorded. Procedures Surgical History Date Name Laterality Status Provider Name and Address Organization Details Recorded Time 11/03/2023 FOL_DP completed LAURIE HYDE MD [address] [place] [address],[place] [address], [place], [address], [place] - [facility] 11/03/2023 10:45:32 08/30/2023 Wax_DP completed LAURIE HYDE MD [address] [place] [address],[place] [address], [place], [address], [place] - [facility] 08/30/2023 12:23:50 08/30/2023 Air only Audio - [id number] completed SHWETA ALLEN MA, CCC-A [address] [facility],[place] [address], [place], [address], [place] - [facility] 08/30/2023 11:05:08 08/30/2023 SRT & Tymps - 87899 & 72128 completed SHWETA ALLEN MA, CCC-A [address] [facility],[place] [address], [place], [address], [place] [facility] 08/30/2023 11:05:44 Imaging Results None recorded. Procedure Notes None recorded. Medical Equipment None Reported. Allergies Allergen ID Allergen Name Allergen Category Reaction Reaction Severity Criticality Documentation Date Start Date Code Code System Note Provider Name and Address Organization Details Recorded Time 88660 pseudoeph edrine Not available other Not available Not available 08/15/2023 8896 RxNorm React ion: unkno wn, unspe cifie d;; Not Available [facility] 00:54:32 Medications Name Sig Start Date Stop Date Status Note LastModified by Organization Details LastModified Time cyclobenzapr ine 10 mg tablet 2018 active Medication ID: [id number] Durat ion Value: 10 Brand Name: cyclobenzapr ine Send Method: E-Prescribed Subs Allowed: subs OK Special Instruction: TAKE 1 TABLET BY MOUTH THREE TIMES DAILY Medica tionGenericN soo: cyclobenzapr ine Not Available Not Available Not Available ipratropium 0.5 mg-albuterol 3 mg (2.5 mg base)/3 mL nebulization soln 2018 active Medication ID: [id number] Durat ion Value: 8 Brand Name: ipratropium- albuterol Se nd Method: E-Prescribed Subs Allowed: subs OK Special Instruction: INHALE 1 AMPULE USING A NEBULIZER FOUR TIMES DAILY ONLY FOR WHEEZING & NOT FOR COUGH Medica tionGenericN soo: ipratropium- albuterol Not Available Not Available Not Available ranitidine 300 mg tablet 2018 active Medication ID: [id number] Durat ion Value: 30 Brand Name: ranitidine HCl Send Method: E-Prescribed Subs Allowed: subs OK Special Instruction: TAKE 1 TABLET TWICE DAILY Medica tionGenericN soo: ranitidine HCl Not Available Not Available Not Available metoprolol succinate ER 100 mg tablet,exten ded release 24 hr 2018 active Medication ID: [id number] Durat ion Value: 30 Brand Name: metoprolol succinate Se nd Method: E-Prescribed Subs Allowed: subs OK Special Instruction: TAKE 1 TABLET EVERY EVENING Medi cationGeneri cName: metoprolol succinate Not Available Not Available Not Available clobetasol 0.05 % topical cream 2018 active Medication ID: [id number] Durat ion Value: 15 Brand Name: clobetasol S end Method: E-Prescribed Subs Allowed: subs OK Special Instruction: APPLY TO THE AFFECTED AREA(S) SPARINGLY TWICE DAILY Medica tionGenericN soo: clobetasol Not Available Not Available Not Available clopidogrel 75 mg tablet 2018 active Medication ID: [id number] Durat ion Value: 30 Brand Name: clopidogrel Send Method: E-Prescribed Subs Allowed: subs OK Special Instruction: TAKE 1 TABLET EVERYDAY AT NOON [facility]: clop[facility]rel Not Available Not Available Not Available aspirin 81 mg tablet,delay ed release 2018 active Medication ID: [id number] Durat ion Value: 30 Brand Name: aspirin Send Method: E-Prescribed Subs Allowed: subs OK Special Instruction: TAKE 1 TABLET EVERY MORNING Medi cationGeneri cName: aspirin Not Available Not Available Not Available levothyroxin e 75 mcg tablet 2018 active Medication ID: [id number] Durat ion Value: 30 Brand Name: levothyroxin e Send Method: E-Prescribed Subs Allowed: subs OK Special Instruction: TAKE 1 TABLET EVERY MORNING Medi cationGeneri cName: levothyroxin e Not Available Not Available Not Available dicyclomine 20 mg tablet 2018 active Medication ID: [id number] Durat ion Value: 30 Brand Name: dicyclomine Send Method: E-Prescribed Subs Allowed: subs OK Special Instruction: TAKE 1 TABLET BY MOUTH 2-4 TIMES PER DAY Medicati onGenericNam e: dicyclomine Not Available Not Available Not Available verapamil ER (PM) 300 mg capsule 24hr pellet CT,ext.relea se 2018 active Medication ID: [id number] Durat ion Value: 30 Brand Name: verapamil Se nd Method: E-Prescribed Subs Allowed: subs OK Special Instruction: TAKE 1 CAPSULE EVERY DAY AT NOON [facility] me: verapamil Not Available Not Available Not Available nitroglyceri n 0.4 mg sublingual tablet 2018 active Medication ID: [id number] Durat ion Value: 8 Brand Name: nitroglyceri n Send Method: E-Prescribed Subs Allowed: subs OK Special Instruction: DISSOLVE 1 TABLET UNDER THE TONGUE EVERY 5 MINUTES NEEDED FOR CHEST PAIN. DO NOT EXCEED A TOTAL OF 3 DOSES IN 15 MINUTES. Med icationGener icName: nitroglyceri n Not Available Not Available Not Available docusate sodium 100 mg capsule 2018 active Medication ID: [id number] Durat ion Value: 30 Brand Name: docusate sodium Send Method: E-Prescribed Subs Allowed: subs OK Special Instruction: TAKE 1 CAPSULE TWICE DAILY IN THE MORNING AND IN THE EVENING Medi cationGeneri cName: docusate sodium Not Available Not Available Not Available montelukast 10 mg tablet 2018 active Medication ID: [id number] Durat ion Value: 30 Brand Name: montelukast Send Method: E-Prescribed Subs Allowed: subs OK Special Instruction: TAKE 1 TABLET BY MOUTH EVERY MORNING Medi cationGeneri cName: montelukast Not Available Not Available Not Available Proventil HFA 90 mcg/actuatio n aerosol inhaler 2018 active Medication ID: [id number] Durat ion Value: 18 Brand Name: Proventil HFA Send Method: E-Prescribed Subs Allowed: subs OK Special Instruction: INHALE 2 PUFFS BY MOUTH EVERY 4 TO 6 HOURS NEEDED Medic ationGeneric Name: Proventil HFA Not Available Not Available Not Available hydralazine 50 mg tablet 2018 active Medication ID: [id number] Durat ion Value: 30 Brand Name: hydralazine Send Method: E-Prescribed Subs Allowed: subs OK Special Instruction: TAKE 1 TABLET THREE TIMES DAILY IN THE MORNING, AT NOON, AND IN THE EV ENING may take extra dose if blood pressure is elevated Med icationGener icName: hydralazine Not Available Not Available Not Available furosemide 20 mg tablet 2018 active Medication ID: [id number] Durat ion Value: 30 Brand Name: furosemide S end Method: E-Prescribed Subs Allowed: subs OK Special Instruction: TAKE 1 TABLET EVERY MORNING [facility] cationGeneri cName: furosemide Not Available Not Available Not Available polyethylene glycol 3350 17 gram/dose oral powder 2018 active Medication ID: [id number] Durat ion Value: 30 Brand Name: polyethylene glycol 3350 Send Method: E-Prescribed Subs Allowed: subs OK Special Instruction: TAKE 17 GM MIXED IN 8 OUNCES OF WATER ONCE DAILY Medica tionGenericN soo: polyethylene glycol 3350 Not Available Not Available Not Available betamethason e dipropionate 0.05 % topical ointment 2018 active Medication ID: [id number] Durat ion Value: 15 Brand Name: betamethason e dipropionate Send Method: E-Prescribed Subs Allowed: subs OK Special Instruction: APPLY TO THE AFFECTED AREA(S) SPARINGLY TWICE DAILY Medica tionGenericN soo: betamethason e dipropionate Not Available Not Available Not Available losartan 100 mg tablet 2018 active Medication ID: [id number] Durat ion Value: 30 Brand Name: losartan Sen d Method: E-Prescribed Subs Allowed: subs OK Special Instruction: TAKE 1 TABLET EVERY DAY AT NOON Medicat ionGenericNa me: losartan Not Available Not Available Not Available fluticasone propionate 50 mcg/actuatio n nasal spray,suspen jenny 2018 active Medication ID: [id number] Durat ion Value: 30 Brand Name: fluticasone propionate S end Method: E-Prescribed Subs Allowed: subs OK Special Instruction: USE 2 SPRAYS IN EACH NOSTRIL EVERY DAY Medicati onGenericNam e: fluticasone propionate Not Available Not Available Not Available Mapap Arthritis Pain 650 mg tablet,exten ded release 2018 active Medication ID: [id number] Durat ion Value: 30 Brand Name: Mapap Arthritis Pain Send Method: E-Prescribed Subs Allowed: subs OK Special Instruction: TAKE 1 TABLET BY MOUTH EVERY 8 HOURS NEEDED Medic ationGeneric Name: Mapap Arthritis Pain Not Available Not Available Not Available rosuvastatin 40 mg tablet 2018 active Medication ID: [id number] Durat ion Value: 30 Brand Name: rosuvastatin Send Method: E-Prescribed Subs Allowed: subs OK Special Instruction: TAKE 1 TABLET EVERY EVENING Medi cationGeneri cName: rosuvastatin Not Available Not Available Not Available topiramate 50 mg tablet 2018 active Medication ID: [id number] Durat ion Value: 30 Brand Name: topiramate S end Method: E-Prescribed Subs Allowed: subs OK Special Instruction: TAKE 1 AND 1/2 TABLETS AT BEDTIME Medi cationGeneri cName: topiramate Not Available Not Available Not Available duloxetine 60 mg capsule,steffen yed release 2018 active Medication ID: [id number] Durat ion Value: 30 Brand Name: duloxetine S end Method: E-Prescribed Subs Allowed: subs OK Special Instruction: TAKE 1 CAPSULE BY MOUTH EVERY MORNING Medi cationGeneri cName: duloxetine Not Available Not Available Not Available Flovent HFA 220 mcg/actuatio n aerosol inhaler 2018 active Medication ID: [id number] Durat ion Value: 30 Brand Name: Flovent HFA Send Method: E-Prescribed Subs Allowed: subs OK Special Instruction: INHALE 2 PUFFS TWICE DAILY RINSE MOUTH AFTER USING. Medic ationGeneric Name: Flovent HFA Not Available Not Available Not Available Alaway 0.025 % (0.035 %) eye drops 2018 active Medication ID: [id number] Durat ion Value: 30 Brand Name: Castro Send Method: E-Prescribed Subs Allowed: subs OK Special Instruction: PLACE 1 DROPS IN EACH EYE TWICE DAILY FOR ITCHING Medi cationGeneri cName: Alaway Not Available Not Available Not Available Vitals Date Recorded Body height Body mass index (BMI) Body weight Provider Name and Address Organization Details Last Updated DateTime 08/30/2023 167.64 cm 37.4 kg/m2 647645.43 g Sangita Sharp [facility] 08/30/2023 12:06:43 Date Recorded Body height Body mass index (BMI) Body weight Provider Name and Address Organization Details Last Updated DateTime 11/03/2023 167.64 cm 37.4 kg/m2 482491.43 g Sangita Sharp [facility] 11/03/2023 10:33:41 Social History None recorded. Functional [...] Note 1804 LAURIE HYDE MD [facility] [address] [address] 08/30/2023 10:23:58 08/30/2023 12:24:53 Sensorineural hearing loss of bilateral ears [id number] H90.3 Mild-moder ate SNHL for both ears.Tympa nogram: Type A for both ears. Impacted c erumen in right ear [id number] 303161 H61.21 cerumen removed from right ear [id number] LAURIE HYDE MD [facility] [address] [address] 11/03/2023 10:31:27 11/03/2023 10:55:33 Dysphagia [id number] R13.10 Health Concerns Section Related Observation LastModified by Organization Detai ls LastModified Time None Recorded Concern Status LastModified by Organization Details LastModified Time None Recorded Advance Directives Directive None Recorded Payers Insurance Date Sequence Insurance Name Policy Number Policy Sen Covered Member ID Sen Member ID Guarantor Name 05/21/2024 1 [place] [employer] [employer] (MEDICAID) Yuan Waters [id number] Yuan Waters Notes Date Note Type Note Provider Name and Address Organization Details Recorded Time 08/30/19 24 text/htm l nigerian - ipadprogressive hearing losslast test with our office 03/30/2020no previous trial of amplificationno sig noise exposure LAURIE HYDE MD [address] [facility],[address], [address], [facility] 08/30/2023 12:25:03 11/03/19 24 text/htm l nigerian - familydysphagiadifficulty swallow pillshead and neck turn to left side allows to cough pill outonset about 07/2023voice normalno hemoptysisno otalgia tobacco - 1/2ppd LAURIE HYDE MD [address] [facility],[place] [address], [place], [address], [facility] - [facility] 11/03/2023 10:54:25 OBGyn Episode No OBEpisode recorded.
--- OUTSIDE RECORDS SUMMARY | 2024-10-23 08:30 | XMS_ITS | Patient Health Record ---
Author Organization [facility] Address [address] [place] [address] Care Team Providers Care Hot End Operator Name Role Phone Mirella Jara MD, Lasha Primary Care Provide Medardo Thornton Jr Unavailable Allergies Allergen (clinical drug ingredient) Drug/Non Drug Allergy documented on EMR Reaction Allergy Type Onset Date Status codeine Codeine Sulfate Unknown Drug Allergy A ctive Results Component Value Reference Range Notes Complete Blood Count no Diff Reviewed date:04/02/2024 02:01:30 PM Interpretation: Performing Lab:[facility], [address] [place] [address] Notes/Report: White Blood Count 8.0 4.8-10.8 X10*3/uL [...] Panel Reviewed date:04/02/2024 02:01:14 PM Interpretation: Performing Lab:[facility], [address] [place] [phone] Notes/Report: Bilirubin Total 0.2 0.0-1.0 mg/dL Bilirubin Direct < 0.2 0.0-0.5 mg/dL Aspartate Amino Transferase 21 5-31 U/L Alanine Aminotransferase 22 0-31 U/L Total Protein 7.7 6.5-8.0 g/dL Albumin Level 4.1 3.5-5.0 g/dL Alkaline Phosphatase 128 39-117 U/L IRON PROFILE Reviewed date:04/02/2024 02:01:24 PM Interpretation: Performing Lab:[facility], [address] [place] [phone] Notes/Report: Iron 41 30-160 mcg/dL Total Iron Binding Capacity 335 228-428 mcg/d L Percent Iron Saturation 12 15-50 % Unsaturated Iron Binding 294 Ferritin Reviewed date:04/02/2024 02:01:49 PM Interpretation: Performing Lab:[facility], [address] [place] [phone] Notes/Report: Ferritin 11 10-250 ng/mL Liver Fibrosis Pnl Reviewed date:04/08/2024 08:30:50 AM Interpretation: Performing Lab:[facility], [address] [place] [phone] Notes/Report: Liver Fibrosis Score 0.19 Liver Fibrosis [...] a>0.62 and a<=1.00 : A3 (severe activity) BZO-Heoqu-9-Macroglobulin 219 106-279 mg/dL FIB-Haptoglobin 217 43-212 mg/dL FIB-Apolipoprotein A1 153 101-198 mg/dL FIB-Total Bilirubin 0.2 0.2-1.2 mg/dL FIB-GGT 119 3-65 U/L FIB-ALT 14 6-29 U/L Reference ID [id number] Footnote SEE NOTE The reliability of results is dependent on compliance with the preanalytical and analytical conditions recommended by [employer]. The tests have to be deferred for: [...] The performance characteristics have been determined by [facility]. It has not been cleared or approved by the U.S. Food and Drug Administration. Performance characteristics refer to the analytical performance of the test. [employer], the associated logo, Tutor and all associated [employer] givens are the registered trademarks of [employer]. All third green party givens - (R) and (TM) - are the property of their respective owners. (C) [id number] [employer]. All rights reserved. THIS TEST WAS PERFORMED AT: [facility] [address] [place] [address] TRAVIS BOO MD,PHD,TRINY SANDEEP Reflex Titer and Pattern Reviewed date:04/05/2024 02:03:11 PM Interpretation: Performing Lab:[facility], [address] [place] [phone] Notes/Report: Anti Nuclear Antibody Screen NEGATIVE NEGATIVE [...] Negative International Consensus on SANDEEP Patterns (https://doi.org/10.1515/c qod-5580-4278) For additional information, please refer to http://education.[employer].Rolocule Games/faq/LSX427 (This link is being provided for informational/ educational purposes only.) THIS TEST WAS PERFORMED AT: [facility] [address] [place] [address] JEAN PAUL LEWIS MD Anti Nuclear Antibody Titer TNP Anti Nuclear Antibody Pattern TNP SANDEEP Titer 2 TNP SANDEEP Pattern 2 TNP SANDEEP Titer 3 TNP SANDEEP Pattern 3 TNP Mitochondrial Antibody Reviewed date:04/09/2024 03:01:22 PM Interpretation: Performing Lab:[facility], [address] [place] [phone] Notes/Report: Mitochondrial Antibodies NEGATIVE NEGATIVE The specimen was negative for cytoplasmic antibodies, however additional staining was observed suggesting the presence of Antinuclear Antibodies. Consider requesting order code 249, SANDEEP Screen, IFA with Reflex to Titer and Pattern, or order code [id number], SANDEEP Screen, IFA w/reflex Titer/Pattern, and Reflex to Multiplex 11 Ab Hosmer, if clinically indicated. THIS TEST WAS PERFORMED AT: [facility] [address] [address] JEAN PAUL LEWIS MD Mitochondrial Ab Titer TNP Smooth Muscle Antibody Reviewed date:04/09/2024 03:01:16 PM Interpretation: Performing Lab:[address] [address] Notes/Report: Smooth Muscle Antibody 25 <20 U [...] type 1. THIS TEST WAS PERFORMED AT: [employer]/[address] [address] SIGRID MOLINA MD,PHD Hepatitis A,B,C Profile Reviewed date:04/02/2024 02:01:41 PM Interpretation: Performing Lab:[facility], [address] [place] [phone] Notes/Report: Hepatitis A Antibody IgM Nonreactive Nonreactive [...] Blood Reviewed date:04/02/2024 01:59:23 PM Interpretation: Performing Lab:[facility], [address] [place] [phone] Notes/Report: Glucose, Whole Blood 106 60-115 mg/dL METER # : [id number] Pathology Reviewed date:04/05/2024 03:24:48 PM Interpretation: Performing Lab:[address] [address] Notes/Report: Reason For Referral Referring Provider First Name Lasha Referring Provider Last Name Mirella perez Referring Provider Speciality Internal M edicine Referred Organization [facility] Referred Provider Medardo Delgado Jr Referred Address [address] [place] [address],[place] [address],[place],[address],[place] Referred Provider Specialty Gastroentero miguel General Notes [...] 200 MG TAKE 1 CAPSULE BY [place] [facility] TWICE DAILY Oral for 30 Active Immunizations Vaccine Route Administration Date Status Comme nts Influenza Unknown 12/02/2018 Administered Influenza Unknown 01/15/2020 Administered Influenza Unknown 01/01/2022 Administered Influenza Unknown 08/31/2023 Refused Problems Problem Type SNOMED Code ICD Code Onset Dates Problem Status W/U Status Risk Notes Problem 00175246 Rectal bleeding (K62.5) Active confirmed Problem 80327604 Constipation (K59.00) Active confirmed Problem Gastroesophageal reflux disease (253977145) Gastroesophageal reflux disease (K21.9) Active confirmed Problem 908616867 Gastroesophageal reflux disease without esophagitis (K21.9) Active confirmed Problem 748082494 Fatty liver (K76.0) Active confirmed Problem 55092080 Hiatal hernia (K44.9) Active confirmed Problem 16682207 Dysphagia, unspecified type (R13.10) Active confirmed Problem 968570657 Abnormal UGI series (R93.3) Active confirmed Problem 714730880 Irritable bowel syndrome with constipation (K58.1) Active confirmed Problem 235968621 GERD without esophagitis (K21.9) Active confirmed Problem 241719815 LUQ pain (R10.12) Active confirmed Problem 207079366 LLQ pain (R10.32) Active confirmed Problem 002030809 Epigastric mass (R19.06) Active confirmed Vital Signs Blood pressure diastolic 77 mm Hg 08/29/2024 Height 66.5 in 08/29/2024 Blood pressure systolic 111 mm Hg 08/29/2024 Weight 225 lbs 08/29/2024 BMI 35.77 kg/m2 08/29/2024 Encounters Encounter Location Date Provider Diagnosis [facility] [address] [place] [phone] 04/02/2024 Medardo Delgado Jr Abnormal UGI series R93.3 [facility] [address] [place] [phone] 03/14/2024 Medardo Delgado Jr Abnormal UGI series R93.3 ; Dysphagia, unspecified type R13.10 and Fatty liver K76.0 [facility] [address] [place] [phone] 08/29/2024 Medardo Delgado Jr Abdominal pain R10.9 ; Gastroesophageal reflux disease without esophagitis K21.9 and Constipation K59.00 [facility] [address] [place] [phone] 10/26/2023 Medardo Delgado Jr [facility] [address] [place] [phone] 02/19/2024 Medardo Delgado Jr Gastroesophageal reflux disease without esophagitis K21.9 [facility] [address] [place] [phone] 02/21/2024 Medardo Delgado Jr [facility] [address] [place] [phone] 03/19/2024 Medardo Delgado Jr [facility] [address] [place] [phone] 04/02/2024 Medardo Delgado Jr [facility] [address] [place] [phone] 04/05/2024 Medardo Delgado Jr Assessments Encounter Date [...] Provider Name:Medardo vallecillo Jr, 08/14/2025 03:35:00 PM, [address] [place] [address], [place] [address], [place], [address], Insurance Providers Payer Name Payer Address Payer Phone Subscriber Number Group Number Insured Name Patient Relationship to Insured Coverage Start Date Coverage End Date MEDICAID OF [facility] [address] [place] [phone] [id number] BESSIE Elias YUAN Self - patient is the insured Medical [...]
[2024-10-23 10:13] LABS: MANUAL DIFF FLAG NO
[2024-10-23 11:33] LABS: Hematocrit 38.6 % (37.0-47.0); Hemoglobin 11.9 g/dl (12.0-16.0); Imm Gran Abs Auto 0.04 X10*3/uL (0.00-0.03); Imm Gran Pct Auto 0.5 % (0.0-0.4); Lymphocytes Absolute Auto 2.5 X10*3/uL (1.2-4.9); Mean Corpuscular HGB Conc 30.8 g/dl (31.0-35.0); Mean Corpuscular Hemoglobin 26.0 pg (27.0-33.0); Mean Corpuscular Volume 84.5 fL (80.0-98.0); NRBC Abs Auto 0.000 X10*3/uL (0.0-0.012); NRBC Pct Auto 0.0 /100WBC (0.0-0.2); Platelet Count 199 X10*3/uL (160-400); Red Blood Count 4.57 X10*6/uL (4.20-5.50); White Blood Count 7.8 X10*3/uL (4.8-10.8)
[2024-10-23 12:13] LABS: Alanine Aminotransferase 23 U/L (0-31); Albumin Level 4.3 g/dL (3.5-5.0); Alkaline Phosphatase 129 U/L (39-117); Anion Gap 10 (12-20); Aspartate Amino Transferase 24 U/L (5-31); Blood Urea Nitrogen 12 mg/dL (9-16); Calcium 9.2 mg/dL (8.4-10.2); Carbon Dioxide 26 mmol/L (22-29); Chloride 111 mmol/L (96-108); Cholesterol 116 mg/dL (<200); Estimated Glomerular Filt Rate > 60; HDL Cholesterol 33 mg/dL (>40); Potassium 3.9 mmol/L (3.3-5.1); Sodium 143 mmol/L (135-145); Total Protein 7.9 g/dL (6.5-8.0); Triglycerides 147 mg/dL (<150)
[2024-10-23 12:21] LABS: HIV Num 1 0.05 S/CO (0.00-0.99)
[2024-10-29 20:59] LABS: Anti Nuclear Antibody Pattern Nuclear, Nucleolar; Anti Nuclear Antibody Screen POSITIVE (NEGATIVE); Anti Nuclear Antibody Titer 1:1280 titer
== END 2024-10-23 08:17 | disposition home or self-care (01) ==
LOC: HO.US 08:16
PROVIDERS: Absent Provider Internal Medicine; PCP Internal Medicine; Visit Provider Internal Medicine Gastroenterology
DX: Z01.84 Encounter for antibody response examination (principal); Z11.4 Encounter for screening for human immunodeficiency virus [HIV]; R10.9 Unspecified abdominal pain; R76.8 Other specified abnormal immunological findings in serum; E11.9 Type 2 diabetes mellitus without complications; I10 Essential (primary) hypertension; E78.1 Pure hyperglyceridemia
CPT/HCPCS: 36415; 76700; 80053; 80061; 85025; 86038; 86039; 87389

== ENCOUNTER → 2024-10-23 08:30 | Outpatient (BNV) | payer MEDICAID, SELFPAY | PROVIDERS: Absent Provider Internal Medicine; PCP Internal Medicine; Visit Provider Radiology Diagnostic Radiology | DX: K76.0 Fatty (change of) liver, not elsewhere classified (principal) | CPT/HCPCS: 76700 ==

== ENCOUNTER → 2024-11-05 12:49 | Outpatient (REF) | payer MEDICAID, SELFPAY ==
--- OUTSIDE RECORDS SUMMARY | 2024-11-01 23:59 | XMS_ITS | Continuity of Care Document ---
Author Organization [facility] Address [address] [facility], [address] d Floor, [address] [place] [address]- Care Team Providers Care Crnp Name Role Phone Anna JAMESON, Lasha [place] Primary Care Physi rishabh Encounter [facility] Date(s): 10/02/24 - 11/01/24 [facility] [address] [facility] 3rd Floor, [address] [place] [address]- Attending Physician: Tameka Truong Admitting Physician: Tameka Truong Referring Physician: AdmtrTameka Encounter Type: Triage Allergies, Adverse Reactions, Alerts Substance Criticality Severity Reaction Reaction Severity Status codeine Active pseudoephedrine Acti ve Immunizations Given and Recorded Vaccine Date Status Refusal Reason pneumococcal 23-valent vaccine 07/01/14 Given Medications Ajovy Autoinjector 225 mg/1.5 mL subcutaneous solution = 225 mg, Subcutaneous Injection, Every 28 days, # 1 kit, 5 Refills, Maintenance, 09/26/24 10:09:00 PM EDT, [facility], Partial fill upon patient request if the prescription is fora schedule II opioid drug., 165.01, cm, 09/25/24 11:27:00 EDT, Height, 105, kg, 03/06/23 8:43:00 EST, Dry Weight Start Date: 09/26/24 Status: Ordered Quantity: 1.0 Unit: kit Repeat number: 6 aspirin 81 mg oral tablet 1 tablet = 81 mg, By Mouth, Daily, # 30 tablet, 0 Refills, Maintenance, 12/14/15 2:43:02 AM EDT, Tablet Start Date: 12/14/15 Status: Ordered Quantity: 30.0 Unit: tablet Repeat number: 1 cyclobenzaprine 5 mg oral tablet 1 tablet, By Mouth, Daily at bedtime, PRN NEEDED FOR MUSCLE SPASMS, # 30 tablet, 1 Refills, Maintenance, 11/24/23 3:37:00 PM EDT, [facility], 165.01, cm, 11/29/22 16:33:00 EDT, Height, 105, kg, 03/06/23 8:43:00 EST, Dry Weight Start Date: 11/24/23 Status: Ordered Quantity: 30.0 Unit: tablet Repeat number: 1 Doc-Q-Lace sodium 100 mg oral capsule 1 capsule = 100 mg, By Mouth, 2 times a day, PRN for constipation, # 20 capsule, 0 Refills, Maintenance, 07/07/16 9:25:58 AM EDT, Capsule Start Date: 07/07/16 Status: Ordered Quantity: 20.0 Unit: capsule Repeat number: [address] 60mg cap duloxetine hcl DR 60mg cap, Refills 0, Maintenance, 11/09/18 2:05:39 PM EDT, Compound Start Date: 11/09/18 Status: Ordered Repeat number: 1 famotidine 40 mg oral tablet TAKE 1 TABLET BY MOUTH TWICE DAILY IN THE MORNING AND IN THE EVENING Start Date: 08/15/22 Status: Ordered Repeat number: 1 furosemide 40 mg oral tablet 40 mg, 1, tablet, By Mouth, Daily, # 30 tablet, Refills 0, Maintenance, 04/18/23 9:56:00 AM EST, Partial fill upon patient request if the prescription is for a schedule II opioid drug. Start Date: 04/18/23 Status: Ordered Quantity: 30.0 Unit: tablet Repeat number: 1 HealthyLax = 17 Gm, By Mouth, Daily, 0 Refills, Maintenance, 07/07/16 9:29:22 AM EDT Start Date: 07/07/16 Status: Ordered Repeat number: 1 HydrALAZINE = 50 mg, By Mouth, 3 times a day, 0 Refills, Maintenance, 06/30/14 11:00:43 PM EDT Start Date: 06/30/14 Status: Ordered Repeat number: 1 levothyroxine 75 mcg (0.075 mg) oral tablet 1 tablet = 75 mcg, By Mouth, Daily, # 30 tablet, 0 Refills, Maintenance, 06/30/14 11:04:03 PM EDT, Tablet Start Date: 06/30/14 Status: Ordered Quantity: 30.0 Unit: tablet Repeat number: 1 losartan 100 mg oral tablet 1 tablet = 100 mg, By Mouth, Daily, # 30 tablet, 0 Refills, Maintenance, 12/14/15 2:49:26 AM EDT, Tablet Start Date: 12/14/15 Status: Ordered Quantity: 30.0 Unit: tablet Repeat number: 1 MetFORMIN (Eqv-Glucophage XR) 500 mg oral tablet, extended release TAKE 2 TABLETS BY MOUTH TWICE DAILY IN THE MORNING AND EVENING Start Date: 08/15/22 Status: Ordered Repeat number: 1 metoprolol 100 mg oral tablet, extended release 100 mg, 1, tablet, By Mouth, Daily, # 30 tablet, Refills 0, Maintenance, 12/14/15 2:47:01 AM EDT Start Date: 12/14/15 Status: Ordered Quantity: 30.0 Unit: tablet Repeat number: 1 Nitrostat 0.4 mg sublingual tablet 1 tablet = 0.4 mg, Sublingual, Every 5 minutes, PRN for chest pain, # 100 tablet, 0 Refills, Maintenance, 07/07/16 9:31:56 AM EDT, Tablet Start Date: 07/07/16 Status: Ordered Quantity: 100.0 Unit: tablet Repeat number: 1 proctosol hc 2.5% proctosol hc 2.5%, Refills 0, Maintenance, 07/07/16 9:28:33 AM EDT, Compound Start Date: 07/07/16 Status: Ordered Repeat number: 1 Proventil HFA 90 mcg/inh inhalation aerosol with adapter 2, puffs, Inhalation, 4 times a day, Refills 0, Maintenance, 07/07/16 9:30:47 AM EDT Start Date: 07/07/16 Status: Ordered Repeat number: 1 rosuvastatin 40 mg oral tablet 1 tablet = 40 mg, By Mouth, Daily, # 30 tablet, 0 Refills, Maintenance, 12/14/15 2:44:53 AM EDT, Tablet Start Date: 12/14/15 Status: Ordered Quantity: 30.0 Unit: tablet Repeat number: 1 Singulair 10 mg oral tablet 1 tablet = 10 mg, By Mouth, Daily in PM, # 30 tablet, 0 Refills, Maintenance, 06/30/14 11:01:32 PM EDT, Tablet Start Date: 06/30/14 Status: Ordered Quantity: 30.0 Unit: tablet Repeat number: 1 SudoGest 30 mg oral tablet 1 tablet = 30 mg, By Mouth, Every 6 hours, 0 Refills, Maintenance, 07/07/16 9:30:24 AM EDT Start Date: 07/07/16 Status: Ordered Repeat number: 1 topiramate 50 mg oral tablet 2 tablet, By Mouth, Daily at bedtime, # 180 tablet, 3 Refills, Maintenance, 06/04/24 10:54:00 PM EST,[facility], 165.01, cm, 11/29/22 16:33:00 EDT, Height, 105, kg, 03/06/23 8:43:00 EST, Dry Weight Start Date: 06/04/24 Status: Ordered Quantity: 180.0 Unit: tablet Repeat number: 1 trospium chloride 20 mg oral tablet 1 tablet, By Mouth, Daily at bedtime, # 30 tablet, 5 Refills, Maintenance, 08/28/24 4:19:00 PM EDT, [facility], 165.01, cm, 11/29/22 16:33:00 EDT, Height, 105, kg, 03/06/23 8:43:00EST, Dry Weight Start Date: 08/28/24 Status: Ordered Quantity: 30.0 Unit: tablet Repeat number: 1 Trulicity Pen 0.75 mg/0.5 mL subcutaneous solution = 0.75 mg, INJECT ONE PEN (=0.75MG) SUBCUTANEOUSLY ONCE A WEEK DIRECTED Start Date: 08/15/22 Status: Ordered Repeat number: 1 verapamil 300 mg oral capsule, extended release 1 capsule = 300 mg, By Mouth, Daily at bedtime, # 30 capsule, 0 Refills, Maintenance, 12/14/15 2:48:22 AM EDT, CR Capsule Start Date: 12/14/15 Status: Ordered Quantity: 30.0 Unit: capsule Repeat number: 1 Problem List Condition Confirmation Course Effective Dates Status Health St atus Informant Obese class II Confirmed Active Social History Social History Type Response Smoking Status Current every day nathan peralta entered on: 06/30/14 Sex Sex Representation Female (finding) Radiology * Event Display: MRI Head, Non- BH Authored Date: [id number] Patient Care team information Care Team Personnel Name: Anna JAMESON, Lasha [place] Position: [facility] Outreach Member Role: PCP Address: [address] [place] [address]- [employer] Tele[employer]: Name: Neto Jones NP Position: [facility] PCO Associate Professional Member Role: Primary Care Nurse Address: [address] [place] [address]- [employer]: Care Team Related Persons Name: WILL WATERS Insurance Providers Guarantor name: YUAN WATERS Health Plan Information #: 1 Payer: [employer] Payer Identifier: SOY Member Number: [id number] Group Number: [id number] Subscriber Identifier: [id number] Relationship to Subscriber: self Coverage Type: MEDICAID Coverage Verification Date: NA Telecom: NA Address:
--- NOTE | 2024-11-05 12:53 | CA_ITS ---
Transthoracic Echocardiogram Patient (Last, First, Middle): Arianna Pineda E Gender: Female Date of : 1960 Age: 64 Procedure Date: 11/05/2024 Procedure Type: Transthoracic Echocardiogram Location: OP Height: 167.64 cm Weight: 99.34 kg BSA: 2.08 m2 Heart Rate: 93 bpm BP: 110 / 78 mmHg Supervisor Wool Shearing: TO Referring MD: Lasha Castillo MD Symptoms: R01.1 HEART MURMUR Study Quality: Adequate ECG Rhythm: Atrial Fibrillation Conclusions: - The left ventricular systolic function is normal. The calculated ejection fraction is 60% by biplane method. - The left atrium is severely dilated. - There is mild calcification of the aortic valve. - There is moderate mitral annular calcification. - There is mild dilatation of the ascending aorta measuring 4.00 cm. Findings Left Ventricle Normal left ventricular cavity size. The left ventricular systolic function is normal. The calculated ejection fraction is 60% by biplane method. There is no evidence of regional wall motion abnormalities. Diastolic function is indeterminate on the basis of available data. There is mild septal asymmetric hypertrophy. Right Ventricle Mildly increased right ventricular cavity size. There is normal right ventricular systolic function. Atria The left atrium is severely dilated. The right atrium is normal in size. Aortic Valve There is a normal trileaflet aortic valve. There is mild calcification of the aortic valve. There is no aortic valve stenosis. Trace to mild aortic regurgitation. Mitral Valve There is mild anterior mitral leaflet thickening. There is moderate mitral annular calcification. There is no mitral valve regurgitation. No significant mitral stenosis. Pulmonic Valve The pulmonic valve is likely normal. Tricuspid Valve There is trace tricuspid valve regurgitation. There is no evidence of pulmonary hypertension. Great Vessels There is mild dilatation of the ascending aorta measuring 4.00 cm. Small plaque is seen in the sino tubular ridge. Venous The inferior vena cava is dilated and collapses less than 50% with inspiration. Pericardium/Pleural There is no evidence of pericardial effusion. Prior Study Comparison No significant change compared to prior study dated: 07/28/2020. Measurements 2D Linear Measurements IVSd: 1.22 0.6-0.9/0.6-1.0 cm LVIDd: 4.01 3.9-5.3/4.2-5.9 cm LVIDd Index: 1.93 2.4-3.2/2.2-3.1 cm/m2 LVIDs: 2.25 2.0-3.6 cm LVPWd: 0.88 0.7-1.1 cm LA Diam: 4.40 2.7-3.8/3.0-4.0 cm LAIDs Index: 2.12 1.5-2.3 cm/m2 LV Mass: 169.81 67-162/88-224 g LV Mass Index: 81.64 43-95/49-115 g/m2 LVOT Diam: 2.20 3.0+(-)1.3 cm 2D Systolic Function EF 4C: 56.70 >55% EF 2C: 60.80 >55% EF BiP: 59.90 >55% Mitral Valve MV VTI: 0.36 MV Pk Tyron: 1.70 MV Mn Tyron: 1.07 MV Pk Grad: 12.00 MV Mn Grad: 6.00 MV Pk E: 1.54 MV Decel Time: 310.00 E'Lateral: 8.01 E'Medial: 5.44 E/E' Med: 28.30 E/E' Lat: 19.20 PHT: 91.00 MVA PHT: 2.42 MVA Continuity: 2.98 Decel Alpine: 5.00 Aortic Valve AoV Pk Tyron: 1.88 AoV Pk Grad: 14.00 TIFFANIE: 2.97 AI Pk Tyron: 3.87 AI Alpine: 1.69 LVOT LVOT Pk Tyron: 1.47 LVOT Mn Tyron: 1.05 LVOT VTI: 0.29 LVOT Pk Grad: 9.00 LVOT Mn Grad: 5.00 LVOT Diam: 2.20 LVOT Area: 3.80 Diastolic Function MV Pk E: 1.54 E'Medial: 5.44 E/E' Med: 28.30 E' Laterial: 8.01 E/E' Lat: 19.20 Right Ventricle TAPSE (mm): 18.90 TVS' Ytron: 11.00 Tricuspid Valve TR Pk Tyron: 2.19 TR Pk Grad: 19.00 RA Press: 15.00 RVSP: 34.00 Great Vessels Aorta Sinus of Valsalva: 3.00 2.0-3.5 cm Ao Asc: 4.00 2.1-3.4 cm Updated in Other Vendor System with Status of Final Alfa Wolf MD electronically signed on 11/06/2024 11:18:42 AM with status of Final
--- OUTSIDE RECORDS SUMMARY | 2024-11-05 13:21 | XMS_ITS | Encounter Summary ---
Author Organization [employer] Address [address] [facility] [address] [place] [address] Care Team Providers Care Non Destructive Tester Name Role Phone Lasha Marrufo MD Primary Care Provide r Encounter Details Date Type Department Care Team (Late st Contact Info) Description 08/22/2022 Abstract [facility] [address] [place] [address] [phone] Lasha Marrufo MD [address] [place] [address] [phone] Social History Tobacco Use Types Packs/Day Years [...] Description 12/10/2024 1:15 PM EDT Office Visit [facility] [address] [place] [address] [phone] Lasha Marrufo MD [address] [place] [address] [phone] documented as of this encounter Procedures Procedure [...] on filedocumented in this encounter Care Teams Non Destructive Tester Relationship Specialty Start Date End Date Lasha Marrufo MD [address] [place] [phone] PCP - General Internal Medicine 12/25/13 documented as of this encounter
--- OUTSIDE RECORDS SUMMARY | 2024-11-05 13:21 | XMS_ITS | Clinical Summary ---
Author Organization [facility] Address [address] [place] [address] Phone Care Team Providers Care Speech Scientist Name Role Phone Lasha Castillo MD Primary [...] 10:45 AM EDT Consult Orthopedic Surgery - [place] [address] [address] Estevan Viramontes, MIAH [address] [address] Health Maintenance Due Date Last Done Comments [...] topic Insurance MEDICAID - [place] Care Teams Speech Scientist Relationship Specialty Start Date End Date Lasha Castillo MD [address] [place] [address] PCP - General Internal Medicine 09/09/24
--- OUTSIDE RECORDS SUMMARY | 2024-11-05 13:21 | XMS_ITS | Encounter Summary ---
Author Organization [facility] Address [address] [place] [address] Phone Care Team Providers Care Warehouse Person Name Role Phone Pcp, Unknown Primary Care Provider Unavailabl e Encounter Details Date Type Department Care Team (Late st Contact Info) Description 08/29/2019 Ancillary Orders [facility] [address] [place] [address] Landy Rossi PA [address] [place] [phone] [email or web address] Palpitations Social History Tobacco Use Types Packs/Day [...] Palpitations documented in this encounter Care Teams Warehouse Person Relationship Specialty Start Date End Date Pcp, Unknown PCP - General 08/29/19 documented as of this encounter Additional Source Comments The information contained in this document represents components of the legal health record. It is not the complete legal health record.[facility]
--- OUTSIDE RECORDS SUMMARY | 2024-11-05 13:21 | XMS_ITS | Patient Health Record ---
Author Organization [facility] Address [address] [place] [address] Care Team Providers Care Pocket Creaser Name Role Phone Mirella Jara MD, Lasha Primary Care Provide Medardo Thornton Jr Unavailable Allergies Allergen (clinical drug ingredient) Drug/Non Drug Allergy documented on EMR Reaction Allergy Type Onset Date Status codeine Codeine Sulfate Unknown Drug Allergy A ctive Results Component Value Reference Range Notes Complete Blood Count no Diff Reviewed date:04/02/2024 02:01:30 PM Interpretation: Performing Lab:[facility], [address] [place] [address] Notes/Report: White Blood Count 8.0 4.8-10.8 X10*3/uL [...] Panel Reviewed date:04/02/2024 02:01:14 PM Interpretation: Performing Lab:[facility], [address] [place] [phone] Notes/Report: Bilirubin Total 0.2 0.0-1.0 mg/dL Bilirubin Direct < 0.2 0.0-0.5 mg/dL Aspartate Amino Transferase 21 5-31 U/L Alanine Aminotransferase 22 0-31 U/L Total Protein 7.7 6.5-8.0 g/dL Albumin Level 4.1 3.5-5.0 g/dL Alkaline Phosphatase 128 39-117 U/L IRON PROFILE Reviewed date:04/02/2024 02:01:24 PM Interpretation: Performing Lab:[facility], [address] [place] [phone] Notes/Report: Iron 41 30-160 mcg/dL Total Iron Binding Capacity 335 228-428 mcg/dL Percent Iron Saturation 12 15-50 % Unsaturated Iron Binding 294 Ferritin Reviewed date:04/02/2024 02:01:49 PM Interpretation: Performing Lab:[facility], [address] [place] [phone] Notes/Report: Ferritin 11 10-250 ng/mL Liver Fibrosis Pnl Reviewed date:04/08/2024 08:30:50 AM Interpretation: Performing Lab:[facility], [address] [place] [phone] Notes/Report: Liver Fibrosis Score 0.19 Liver Fibrosis [...] a>0.62 and a<=1.00 : A3 (severe activity) BDR-Sahuw-2-Macroglobuli n 219 106-279 mg/dL FIB-Haptoglobin 217 43-212 mg/dL FIB-Apolipoprotein A1 153 101-198 mg/dL FIB-Total Bilirubin 0.2 0.2-1.2 mg/dL FIB-GGT 119 3-65 U/L FIB-ALT 14 6-29 U/L Reference ID [id number] Footnote SEE NOTE The reliability of results is dependent on compliance with the preanalytical and analytical conditions recommended by [employer]. The tests have to be deferred for: [...] The performance characteristics have been determined by [facility]. It has not been cleared or approved by the U.S. Food and Drug Administration. Performance characteristics refer to the analytical performance of the test. [employer], the associated logo, [employer] and all associated [employer] givens are the registered trademarks of [employer]. All third green party givens - (R) and (TM) - are the property of their respective owners. (C) 6789-0968 [employer]. All rights reserved. THIS TEST WAS PERFORMED AT: [facility] [address] [place] [address] TRAVIS BOO MD,PHD,TRINY SANDEEP Reflex Titer and Pattern Reviewed date:04/05/2024 02:03:11 PM Interpretation: Performing Lab:[facility], [address] [place] [phone] Notes/Report: Anti Nuclear Antibody Screen NEGATIVE NEGATIVE [...] AC-0: Negative International Consensus on SANDEEP Patterns (https://doi.org/10.151 5/pujd-2000-5126) For additional information, please refer to http://education.Xirrus/faq/FAQ1 19 (This link is being provided for informational/ educational purposes only.) THIS TEST WAS PERFORMED AT: [facility] [address] [place] [phone] JEAN PAUL LEWIS MD Anti Nuclear Antibody Titer TNP Anti Nuclear Antibody Pattern TNP SANDEEP Titer 2 TNP SANDEEP Pattern 2 TNP SANDEEP Titer 3 TNP SANDEEP Pattern 3 TNP Mitochondrial Antibody Reviewed date:04/09/2024 03:01:22 PM Interpretation: Performing Lab:[facility], [address] [place] [phone] Notes/Report: Mitochondrial Antibodies NEGATIVE NEGATIVE The specimen was negative for cytoplasmic antibodies, however additional staining was observed suggesting the presence of Antinuclear Antibodies. Consider requesting order code 249, SANDEEP Screen, IFA with Reflex to Titer and Pattern, or order code [id number], SANDEEP Screen, IFA w/reflex Titer/Pattern, and Reflex to Multiplex 11 Ab Th[place]xton, if clinically indicated. THIS TEST WAS PERFORMED AT: [facility] [address] [address] JEAN PAUL LEWIS MD Mitochondrial Ab Titer TNP Smooth Muscle Antibody Reviewed date:04/09/2024 03:01:16 PM Interpretation: Performing Lab:[facility], [address] [place] [phone] Notes/Report: Smooth Muscle Antibody 25 <20 U [...] type 1. THIS TEST WAS PERFORMED AT: [facility]/[address] [address] SIGRID MOLINA MD,PHD Hepatitis A,B,C Profile Reviewed date:04/02/2024 02:01:41 PM Interpretation: Performing Lab:[facility], [address] [place] [phone] Notes/Report: Hepatitis A Antibody IgM Nonreactive Nonreactive [...] Blood Reviewed date:04/02/2024 01:59:23 PM Interpretation: Performing Lab:[facility], [address] [place] [phone] Notes/Report: Glucose, Whole Blood 106 60-115 mg/dL METER # : [id number] Pathology Reviewed date:04/05/2024 03:24:48 PM Interpretation: Performing Lab:[facility], [address] [place] [phone] Notes/Report: Complete Blood Count Auto Di ff Reviewed date:10/24/2024 08:44:04 AM Interpretation: Performing Lab:[facility], [address] [place] [phone] Notes/Report: White Blood Count 7.8 4.8-10.8 X10*3/uL Red Blood Count 4.57 4.20-5.50 X10*6/uL Hemoglobin 11.9 12.0-16.0 g/dl Hematocrit 38.6 37.0-47.0 % Mean Corpuscular Volume 84.5 80.0-98.0 fL Mean Corpuscular Hemoglobin 26.0 27.0-33.0 pg Mean Corpuscular HGB Conc 30.8 31.0-35.0 g/dl Red Cell Distribution Width 15.6 11.0-16.0 % Platelet Count 199 160-400 X10*3/uL Mean Platelet Volume 9.6 9.4-12.3 fL Neutrophils Percent Auto 58.7 45-73 % Imm Gran Pct Auto 0.5 0.0-0.4 % Lymphocytes Percent Auto 32.6 20-40 % Monocytes Percent Auto 4.5 2-11 % Eosinophils Percent Auto 3.1 0-4 % Basophils Percent Auto 0.6 0-2 % NRBC Pct Auto 0.0 0.0-0.2 /100WBC Neutrophils Absolute Auto 4.6 2.0-8.3 x10*3/uL Imm Gran Abs Auto 0.04 0.00-0.03 X10*3/uL Lymphocytes Absolute Auto 2.5 1.2-4.9 X10*3/uL Monocytes Absolute Auto 0.4 0.1-1.2 X10*3/uL Eosinophils Absolute Auto 0.2 0.0-0.4 X10*3/uL Basophils Absolute Auto 0.1 0.0-0.2 X10*3/uL NRBC Abs Auto 0.000 0.0-0.012 X10*3/uL Comprehensive Met. Panel Reviewed date:10/24/2024 08:39:47 AM Interpretation: Performing Lab:[facility], [address] [place] [phone] Notes/Report: Sodium 143 135-145 mmol/L Potassium 3.9 3.3-5.1 mmol/L Chloride 111 96-108 mmol/L Carbon Dioxide 26 22-29 mmol/L Anion Gap 10 12-20 Blood Urea Nitrogen 12 9-16 mg/dL Creatinine 0.68 0.5-1.4 mg/dL Estimated Glomerular Filt Rate > 60 Chronic Kidney Disease: Estimated GFR < 60 mL/min/1.73m2 Severe Kidney Disease: Estimated GFR < 15 mL/min/1.73m2 Glucose Random 86 60-115 mg/dL Calcium 9.2 8.4-10.2 mg/dL Bilirubin Total 0.2 0.0-1.0 mg/dL Aspartate Amino Transferase 24 5-31 U/L Alanine Aminotransferase 23 0-31 U/L Total Protein 7.9 6.5-8.0 g/dL Albumin Level 4.3 3.5-5.0 g/dL Alkaline Phosphatase 129 39-117 U/L Lipid Panel Reviewed date:10/24/2024 08:39:21 AM Interpretation: Performing Lab:[facility], [address] [place] [phone] Notes/Report: Triglycerides 147 <150 mg/dL Desirable Triglyceride: less than 150 mg/dL Borderline High Triglyceride 150-199 mg/dL High Triglyceride: 200-499 mg/dL Very High Triglyceride: greater than or equal to 5OO mg/dL Cholesterol 116 <200 mg/dL Desirable Cholesterol: less than 200 mg/dL Borderline High Cholesterol: 200-239 mg/dL High Cholesterol: greater than 239 mg/dL LDL Cholesterol Calculated 54 <100 mg/dL Desirable LDL: less than 100 mg/dL Near Optimal/Above Optimal LDL: 110-129 mg/dL Borderline High LDL: 130-159 mg/dL High LDL: 160-189 mg/dL Very High LDL: greater than or equal to 190 mg/dL HDL Cholesterol 33 >40 mg/dL Desirable HDL: greater than 40 mg/dL Note: This HDL assay may give artificially low results in patients with liver disease. SANDEEP Reflex Titer and Pattern Reviewed date:10/30/2024 05:07:02 PM Interpretation: Performing Lab:[facility], [address] [place] [phone] Notes/Report: Anti Nuclear Antibody Screen POSITIVE NEGATIVE SANDEEP IFA is a first line screen for detecting the presence of up to approximately 150 autoantibodies in various autoimmune diseases. A positive SANDEEP IFA result is suggestive of autoimmune disease and reflexes to titer and pattern. Further laboratory testing may be considered if clinically indicated. For additional information, please refer to http://education.Xirrus/faq/FAQ1 77 (This link is being provided for informational/ educational purposes only.) Anti Nuclear Antibody Titer 1:1280 Reference Range <1:40 Negative 1:40-1:80 Low Antibody Level >1:80 Elevated Antibody Level Anti Nuclear Antibody Pattern Nuclear, Nucleolar Nucleolar pattern is associated with systemic sclerosis (scleroderma), systemic sclerosis/polymyositis overlap and Sjogren's syndrome. AC-8,9,10: Nucleolar International Consensus on SANDEEP Patterns (https://doi.org/10151 qwtx-6160-1820) SANDEEP Titer 2 1:320 Reference Range <1:40 Negative 1:40-1:80 Low Antibody Level >1:80 Elevated Antibody Level SANDEEP Pattern 2 Nuclear, Homogeneous Homogeneous pattern is associated with systemic lupus erythematosus (SLE), drug-induced lupus and juvenile idiopathic arthritis. AC-1: Homogeneous International Consensus on SANDEEP Patterns (https://doi.org/10151 wrvm-8753-6226) THIS TEST WAS PERFORMED AT: [facility] [address] [place] [phone] JEAN PAUL LEWIS MD SANDEEP Titer 3 TNP SANDEEP Pattern 3 TNP US abdomen complete Reviewed date:10/24/2024 08:44:16 AM Interpretation: Performing Lab: Notes/Report: [place] [address] Ultrasound Report Signed Patient: Yuan Waters MR#: [id number] : 1960 Acct:[id number] Age/Sex: 64 / F ADM Date: 10/23/24 Loc: HO.US Attending Dr: Medardo Delgado MD Ordering Physician: Medardo Delgado MD Date of Service: 10/23/24 Procedure(s): US abdomen complete Accession Number(s): [id number] cc: Medardo Delgado MD; Lasha Castillo MD EXAMINATION: US ABDOMEN COMPLETE CLINICAL INFORMATION: Abdominal pain.. COMPARISON: No prior ultrasound. Correlation made with CT abdomen pelvis 10/03/2023. TECHNIQUE: Real-time imaging of the abdominal viscera. FINDINGS: PANCREAS: Visualized portions are unremarkable. ABDOMINAL AORTA: The proximal, mid, and distal segments are normal in caliber. INFERIOR VENA CAVA: Visualized portions are normal. LIVER: Liver is mildly enlarged. Right hepatic lobe measures 22.3 cm. The liver contour is normal. There is diffuse increased liver parenchymal echogenicity, consistent with hepatic steatosis. No focal hepatic lesion. There is no intrahepatic biliary duct dilatation seen. GALLBLADDER: Surgically absent. COMMON BILE DUCT: Mildly prominent measuring 1.2 cm in diameter, likely reservoir effect from cholecystectomy state. RIGHT KIDNEY: No hydronephrosis. No renal calculi or focal parenchymal lesions. The kidney measures 12.6 cm in maximum dimension. LEFT KIDNEY: No hydronephrosis. No renal calculi or focal parenchymal lesions. The kidney measures 12.8 cm in maximum dimension. SPLEEN: The spleen measures 12.7 cm in maximum dimension. FREE FLUID: None. US/US abdomen complete IMPRESSION: 1. Mild hepatic enlargement with diffuse fatty infiltration. No suspicious focal hepatic lesion. 2. Cholecystectomy. 3. Mildly prominent common bile duct at 1.2 cm, likely reservoir state from cholecystectomy. 4. Remainder of the examination is normal. Electronically signed by: Nikunj Zarate MD 10/23/2024 09:43 AM EDT Dictated By: Nikunj Zarate MD Signed By: <Electronically signed by Nikunj Zarate MD in OV> 10/23/24 0943 DD/ 0835 TD/TT: 10/23/2417 Ground Instructor Advanced: HIV Ab/Ag Reviewed date:10/24/2024 08:38:16 AM Interpretation: Performing Lab:[facility], [address] [place] [phone] Notes/Report: HIV AB/AG Nonreactive Nonreactive HIV-1 p24 Ag and/or HIV-1/HIV-2 Ab not detected. A test result that is nonreactive does not exclude the possibility of exposure to or infection with HIV-1 and/or HIV-2. Nonreactive results in this assay for individuals with prior exposure to HIV-1 and/or HIV-2 may be due to antigen and antibody levels that are below the limit of detection of this assay. The [employer] HIV Ag/Ab Combo assay result and supplemental assay results should be interpreted in conjunction with the patient's clinical presentation, history and other laboratory results. If the results are inconsistent with clinical evidence, additional testing is suggested to confirm the result. Reason For Referral Referring Provider First Name Lasha Referring Provider Last Name Mirella perez Referring Provider Speciality Internal M edicine Referred Organization [facility] Referred Provider Medardo Delgado Jr Referred Address [address] [place] [address],[place] [address],[place], [place],[address],[place] Referred Provider Specialty Gastroentero logy General Notes Kelsi Christianson 2024 09:59:43 AM >requested a [facility] referral from [facility] for visit with dr akins on 08-29-24 [...] 200 MG TAKE 1 CAPSULE BY MO [facility] TWICE DAILY Oral for 30 Active Immunizations Vaccine Route Administration Date Status Comme nts Influenza Unknown 12/02/2018 Administered Influenza Unknown 01/15/2020 Administered Influenza Unknown 01/01/2022 Administered Influenza Unknown 08/31/2023 Refused Problems Problem Type SNOMED Code ICD Code Onset Dates Problem Status W/U Status Risk Notes Problem 34166522 Rectal bleeding (K62.5) Active confirmed Problem 25831527 Constipation (K59.00) Active confirmed Problem Gastroesophageal reflux disease (040843255) Gastroesophageal reflux disease (K21.9) Active confirmed Problem 594410454 Gastroesophageal reflux disease without esophagitis (K21.9) Active confirmed Problem 170976065 Fatty liver (K76.0) Active confirmed Problem 12658782 Hiatal hernia (K44.9) Active confirmed Problem 91301855 Dysphagia, unspecified type (R13.10) Active confirmed Problem 276559872 Abnormal UGI series (R93.3) Active confirmed Problem 796684255 Irritable bowel syndrome with constipation (K58.1) Active confirmed Problem 118781655 GERD without esophagitis (K21.9) Active confirmed Problem 896692917 LUQ pain (R10.12) Active confirmed Problem 380266892 LLQ pain (R10.32) Active confirmed Problem 763458431 Epigastric mass (R19.06) Active confirmed Vital Signs Blood pressure diastolic 77 mm Hg 08/29/2024 Height 66.5 in 08/29/2024 Blood pressure systolic 111 mm Hg 08/29/2024 Weight 225 lbs 08/29/2024 BMI 35.77 kg/m2 08/29/2024 Encounters Encounter Location Date Provider Diagnosis [facility] Outpatient [address] [place] [phone] 04/02/2024 Medardo Delgado Jr Abnormal UGI series R93.3 [facility] [address] [place] [phone] 03/14/2024 Medardo Delgado Jr Abnormal UGI series R93.3 ; Dysphagia, unspecified type R13.10 and Fatty liver K76.0 [facility] [address] [place] [phone] 08/29/2024 Medardo Delgado Jr Abdominal pain R10.9 ; Gastroesophageal reflux disease without esophagitis K21.9 and Constipation K59.00 [facility] [address] [place] [phone] 02/19/2024 Medardo Delgado Jr Gastroesophageal reflux disease without esophagitis K21.9 [facility] [address] [place] [phone] 02/21/2024 Medardo Delgado Jr [facility] [address] [place] [phone] 03/19/2024 Medardo Delgado Jr [facility] [address] [place] [phone] 04/02/2024 Medardo Delgado Jr [facility] [address] [place] [phone] 04/05/2024 Medardo Delgado Jr [facility] [address] [place] [phone] 10/24/2024 Medardo Delgado Jr [facility] [address] [place] [address] 10/30/2024 Medardo Delgado Jr Assessments Encounter Date Diagnosis [...] ENDOSCOPY 03/14/2024 Next Appt Details Provider Name:Medardo Person Maximus vallecillo Jr, 08/14/2025 03:35:00 PM, [address], [address], [place], [address], Insurance Providers Payer Name Payer Address Payer Phone Subscriber Number Group Number Insured Name Patient Relationship to Insured Coverage Start Date Coverage End Date MEDICAID OF [facility] [address] [place] [address] [phone] [id number] YUAN LR Self - patient is the insured Medical (General) History Medical History History ICD Code hypertension obesity Hypothyroidism asthma arthritis SANDEEP + colonoscopy 06/26/19, 1 adenoma, five-yea r followup recommended Gastroesophageal reflux dise [facility], EGD/03/23, no Santos's esophagus or H. pylori.EGD 03/26, no H. pylori, Santos's esophagus, or celiac disease. Obstructive sleep apnea type II diabetes Surgical History Surgery Date(Month/Year) knee surgery-right cholecystectomy tubal ligation breast biopsy
== END ==
LOC: HO.CARD 12:49
PROVIDERS: PCP Internal Medicine; Visit Provider Internal Medicine
DX: R01.1 Cardiac murmur, unspecified (principal)
CPT/HCPCS: 93306

== ENCOUNTER → 2024-11-05 12:53 | Outpatient (BNV) | payer MEDICAID, SELFPAY | PROVIDERS: PCP Internal Medicine; Visit Provider Internal Medicine | DX: I51.7 Cardiomegaly (principal); I34.81 Nonrheumatic mitral (valve) annulus calcification | CPT/HCPCS: 93306 ==

== ENCOUNTER 2024-11-08 13:34 | Outpatient (REF) | payer MEDICAID, SELFPAY ==
--- NOTE | ~2024-11-08 | US_ITS ---
CLINICAL HISTORY: R10.2 - Pelvic and perineal pain US pelvis transabdominal and transvaginal Comparison: None provided Findings: Transabdominal scanning performed for overall anatomy. Transvaginal scanning performed for additional detail. Anteverted uterus is 6.9 cm length. Normal myometrium. Endometrium 4 mm thickness. No lesions. Right ovary 2.5 x 1.4 x 1.1 cm. Left ovary 1.6 x 1.4 x 1.1 cm. No free fluid. IMPRESSION: 1. Normal pelvic ultrasound This document has been electronically signed by: Emanuel Patterson MD on 11/08/2024 16:45:34
--- OUTSIDE RECORDS SUMMARY | 2024-11-08 13:40 | XMS_ITS | Encounter Summary ---
Author Organization [employer] Address [address] [place] [address] [address] [address] Care Team Providers Care Cert Occupational Therapy Asst Name Role Phone Lasha Marrufo MD Primary Care Provide r Farzad Sandhu MD Unavailable [phone] Encounter Details Date Type Department Care Team (Late st Contact Info) Description 08/22/[address] [facility] [address] [place] [address] [phone] Lasha Marrufo MD [address] [place] [address] [phone] Social History Tobacco Use Types Packs/Day Years [...] Description 12/10/2024 1:15 PM EDT Office Visit [facility] [address] [place] [address] [phone] Lasha Marrufo MD [address], [place] [phone] documented as of this encounter Procedures Procedure [...] on filedocumented in this encounter Care Teams Cert Occupational Therapy Asst Relationship Specialty Start Date End Date Lasha Marrufo MD [address] [place] [phone] PCP - General Internal Medicine 12/25/13 Farzad Sandhu MD [address] [place] [address] Cardiology 11/08/24 documented as of this encounter
--- OUTSIDE RECORDS SUMMARY | 2024-11-08 13:40 | XMS_ITS | Encounter Summary ---
Author Organization [facility] Address [address] [place] [address] Phone Care Team Providers Care Revit Drafter Name Role Phone Pcp, Unknown Primary Care Provider Unavailabl e Encounter Details Date Type Department Care Team (Late st Contact Info) Description 08/29/2019 Ancillary Orders [facility] [address] [place] [address] Landy Rossi PA [address] [place] [address] [email or web address] Palpitations Social History Tobacco Use Types Packs/Day [...] Palpitations documented in this encounter Care Teams Revit Drafter Relationship Specialty Start Date End Date Pcp, Unknown PCP - General 08/29/19 documented as of this encounter Additional Source Comments The information contained in this document represents components of the legal health record. It is not the complete legal health record.[facility]
--- OUTSIDE RECORDS SUMMARY | 2024-11-08 13:40 | XMS_ITS | Clinical Summary ---
Author Organization [facility] Address [address] [place] [address] Phone Care Team Providers Care 911 Dispatcher Name Role Phone Lasha Castillo MD Primary [...] 10:45 AM EDT Consult Orthopedic Surgery - [place] [address] [address] Estevan Viramontes, MIAH [address] [address] Health Maintenance Due Date Last Done Comments [...] topic Insurance MEDICAID - [place] Care Teams 911 Dispatcher Relationship Specialty Start Date End Date Lasha Castillo MD [address] [place] [address] PCP - General Internal Medicine 09/09/24
--- OUTSIDE RECORDS SUMMARY | 2024-11-08 13:40 | XMS_ITS | Patient Health Record ---
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 Name Role Phone Mirella Jara MD, Lasha Primary Care Provide Medardo Thornton Jr Unavailable Allergies Allergen (clinical drug ingredient) Drug/Non Drug Allergy documented on EMR Reaction Allergy Type Onset Date Status codeine Codeine Sulfate Unknown Drug Allergy A ctive Results Component Value Reference Range Notes Complete Blood Count no Diff Reviewed date:04/02/2024 02:01:30 PM Interpretation: Performing Lab:[facility], [address] [place] [address] Notes/Report: White Blood Count 8.0 4.8-10.8 X10*3/uL [...] Panel Reviewed date:04/02/2024 02:01:14 PM Interpretation: Performing Lab:[facility], [address] [place] [phone] Notes/Report: Bilirubin Total 0.2 0.0-1.0 mg/dL Bilirubin Direct < 0.2 0.0-0.5 mg/dL Aspartate Amino Transferase 21 5-31 U/L Alanine Aminotransferase 22 0-31 U/L Total Protein 7.7 6.5-8.0 g/dL Albumin Level 4.1 3.5-5.0 g/dL Alkaline Phosphatase 128 39-117 U/L IRON PROFILE Reviewed date:04/02/2024 02:01:24 PM Interpretation: Performing Lab:[facility], [address] [place] [phone] Notes/Report: Iron 41 30-160 mcg/dL Total Iron Binding Capacity 335 228-428 mcg/dL Percent Iron Saturation 12 15-50 % Unsaturated Iron Binding 294 Ferritin Reviewed date:04/02/2024 02:01:49 PM Interpretation: Performing Lab:[facility], [address] [place] [phone] Notes/Report: Ferritin 11 10-250 ng/mL Liver Fibrosis Pnl Reviewed date:04/08/2024 08:30:50 AM Interpretation: Performing Lab:[facility], [address] [place] [phone] Notes/Report: Liver Fibrosis Score 0.19 Liver Fibrosis [...] a>0.62 and a<=1.00 : A3 (severe activity) CGL-Ikvlt-7-Macroglobuli n 219 106-279 mg/dL FIB-Haptoglobin 217 43-212 mg/dL FIB-Apolipoprotein A1 153 101-198 mg/dL FIB-Total Bilirubin 0.2 0.2-1.2 mg/dL FIB-GGT 119 3-65 U/L FIB-ALT 14 6-29 U/L Reference ID [id number] Footnote SEE NOTE The reliability of results is dependent on compliance with the preanalytical and analytical conditions recommended by [employer]. The tests have to be deferred for: [...] The performance characteristics have been determined by [facility]. It has not been cleared or approved by the U.S. Food and Drug Administration. Performance characteristics refer to the analytical performance of the test. Postcard [employer] Tag, the associated logo, Mailbox and all associated [employer] givens are the registered trademarks of [employer] All third alliance party givens - (R) and (TM) - are the property of their respective owners. (C) [id number] [employer] Inc[employer]. All rights reserved. THIS TEST WAS PERFORMED AT: [employer]/[facility] [address] [place] [address] TRAVIS BOO MD,PHD,TRINY SANDEEP Reflex Titer and Pattern Reviewed date:04/05/2024 02:03:11 PM Interpretation: Performing Lab:[facility], [address] [place] [phone] Notes/Report: Anti Nuclear Antibody Screen NEGATIVE NEGATIVE [...] Negative International Consensus on SANDEEP Patterns (https://doi.org/10.151 5/yfmc-4406-2117) For additional information, please refer to http://education.Amperion/faq/FAQ1 25 (This link is being provided for informational/ educational purposes only.) THIS TEST WAS PERFORMED AT: [facility] [address] [place] [address] JEAN PAUL LEWIS MD Anti Nuclear Antibody Titer TNP Anti Nuclear Antibody Pattern TNP SANDEEP Titer 2 TNP SANDEEP Pattern 2 TNP SANDEEP Titer 3 TNP SANDEEP Pattern 3 TNP Mitochondrial Antibody Reviewed date:04/09/2024 03:01:22 PM Interpretation: Performing Lab:[facility], [address] [place] [phone] Notes/Report: Mitochondrial Antibodies NEGATIVE NEGATIVE The specimen was negative for cytoplasmic antibodies, however additional staining was observed suggesting the presence of Antinuclear Antibodies. Consider requesting order code 249, SANDEEP Screen, IFA with Reflex to Titer and Pattern, or order code [id number], SANDEEP Screen, IFA w/reflex Titer/Pattern, and Reflex to Multiplex 11 Ab [place], if clinically indicated. THIS TEST WAS PERFORMED AT: [facility] [address] [address] JEAN PAUL LEWIS MD Mitochondrial Ab Titer TNP Smooth Muscle Antibody Reviewed date:04/09/2024 03:01:16 PM Interpretation: Performing Lab:[facility], [address] [place] [phone] Notes/Report: Smooth Muscle Antibody 25 <20 U [...] type 1. THIS TEST WAS PERFORMED AT: [employer]/[address] [address] SIGRID MOLINA MD,PHD Hepatitis A,B,C Profile Reviewed date:04/02/2024 02:01:41 PM Interpretation: Performing Lab:[facility], [address] [place] [phone] Notes/Report: Hepatitis A Antibody IgM Nonreactive Nonreactive [...] Blood Reviewed date:04/02/2024 01:59:23 PM Interpretation: Performing Lab:[facility], [address] [place] [phone] Notes/Report: Glucose, Whole Blood 106 60-115 mg/dL METER # : [id number] Pathology Reviewed date:04/05/2024 03:24:48 PM Interpretation: Performing Lab:[facility], [address] [place] [phone] Notes/Report: Complete Blood Count Auto Di ff Reviewed date:10/24/2024 08:44:04 AM Interpretation: Performing Lab:[facility], [address] [place] [phone] Notes/Report: White Blood Count 7.8 4.8-10.8 X10*3/uL [...] Panel Reviewed date:10/24/2024 08:39:47 AM Interpretation: Performing Lab:[facility], [address] [place] [phone] Notes/Report: Sodium 143 135-145 mmol/L Potassium 3.9 [...] Panel Reviewed date:10/24/2024 08:39:21 AM Interpretation: Performing Lab:[facility], [address] [place] [phone] Notes/Report: Triglycerides 147 <150 mg/dL Desirable Triglyceride: [...] Pattern Reviewed date:10/30/2024 05:07:02 PM Interpretation: Performing Lab:[facility], [address] [place] [phone] Notes/Report: Anti Nuclear Antibody Screen POSITIVE NEGATIVE SANDEEP IFA is a first line screen for detecting the presence of up to approximately 150 autoantibodies in various autoimmune diseases. A positive SANDEEP IFA result is suggestive of autoimmune disease and reflexes to titer and pattern. Further laboratory testing may be considered if clinically indicated. For additional information, please refer to http://education.Amperion/faq/FAQ1 77 (This link is being provided for informational/ educational purposes only.) Anti Nuclear Antibody Titer 1:1280 Reference Range <1:40 Negative 1:40-1:80 Low Antibody Level >1:80 Elevated Antibody Level Anti Nuclear Antibody Pattern Nuclear, Nucleolar Nucleolar pattern is associated with systemic sclerosis (scleroderma), systemic sclerosis/polymyositis overlap and Sjogren's syndrome. AC-8,9,10: Nucleolar International Consensus on SANDEEP Patterns (https://doi.org/10151 hmoj-3572-1322) SANDEEP Titer 2 1:320 Reference Range <1:40 Negative 1:40-1:80 Low Antibody Level >1:80 Elevated Antibody Level SANDEEP Pattern 2 Nuclear, Homogeneous Homogeneous pattern is associated with systemic lupus erythematosus (SLE), drug-induced lupus and juvenile idiopathic arthritis. AC-1: Homogeneous International Consensus on SANDEEP Patterns (https://doi.org/10151 twfo-5002-0593) THIS TEST WAS PERFORMED AT: [facility] [address] [place] [address] JEAN PAUL LEWIS MD SANDEEP Titer 3 TNP SANDEEP Pattern 3 TNP US abdomen complete Reviewed date:10/24/2024 08:44:16 AM Interpretation: Performing Lab: Notes/Report: [place] [address] Ultrasound Report Signed Patient: Yuan Waters MR#: [id number] : 1960 Acct:[id number] Age/Sex: 64 / F ADM Date: 10/23/24 Loc: HO.US Attending Dr: Medardo Delgado MD Ordering Physician: Medardo Delgado MD Date of Service: 10/23/24 Procedure(s): US abdomen complete Accession Number(s): [id number] cc: Medardo Delgado MD; Lasha Castillo MD [...] OV> 10/23/24 0943 DD/ 0835 TD/TT: 10/23/2417 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 The [employer] HIV Ag/Ab Combo assay result and supplemental assay results should be interpreted in conjunction with the patient's clinical presentation, history and other laboratory results. If the results are inconsistent with clinical evidence, additional testing is suggested to confirm the result. Reason For Referral Referring Provider First Name Lasha Referring Provider Last Name Mirella perez Referring Provider Speciality Internal M edicine Referred Organization [facility] Referred Provider Medardo Delgado Jr Referred Address [address] [place] [address],[place] [address],[place], [place],[address],[place] Referred Provider Specialty Gastroentero logy General Notes Kelsi Christianson 2024 09:59:43 AM >requested a [facility] referral from [facility] for visit with dr akins on [...] 200 MG TAKE 1 CAPSULE BY MO [facility] TWICE DAILY Oral for 30 Active Immunizations Vaccine Route Administration Date Status Comme nts Influenza Unknown 12/02/2018 Administered Influenza Unknown 01/15/2020 Administered Influenza Unknown 01/01/2022 Administered Influenza Unknown 08/31/2023 Refused Problems Problem Type SNOMED Code ICD Code Onset Dates Problem Status W/U Status Risk Notes Problem 67339888 Rectal bleeding (K62.5) Active confirmed Problem 55999891 Constipation (K59.00) Active confirmed Problem Gastroesophageal reflux disease (641037211) Gastroesophageal reflux disease (K21.9) Active confirmed Problem 668680742 Gastroesophageal reflux disease without esophagitis (K21.9) Active confirmed Problem 583016264 Fatty liver (K76.0) Active confirmed Problem 19120811 Hiatal hernia (K44.9) Active confirmed Problem 69878083 Dysphagia, unspecified type (R13.10) Active confirmed Problem 348468066 Abnormal UGI series (R93.3) Active confirmed Problem 169085940 Irritable bowel syndrome with constipation (K58.1) Active confirmed Problem 022218513 GERD without esophagitis (K21.9) Active confirmed Problem 518521873 LUQ pain (R10.12) Active confirmed Problem 436771405 LLQ pain (R10.32) Active confirmed Problem 208660188 Epigastric mass (R19.06) Active confirmed Vital Signs Blood pressure diastolic 77 mm Hg 08/29/2024 Height 66.5 in 08/29/2024 Blood pressure systolic 111 mm Hg 08/29/2024 Weight 225 lbs 08/29/2024 BMI 35.77 kg/m2 08/29/2024 Encounters Encounter Location Date Provider Diagnosis [facility] Outpatient [address] [place] [phone] 04/02/2024 Medardo Delgado Jr Abnormal UGI series R93.3 [facility] [address] [place] [phone] 03/14/2024 Medardo Delgado Jr Abnormal UGI series R93.3 ; Dysphagia, unspecified type R13.10 and Fatty liver K76.0 [facility] [address] [place] [phone] 08/29/2024 Medardo Delgado Jr Abdominal pain R10.9 ; Gastroesophageal reflux disease without esophagitis K21.9 and Constipation K59.00 [facility] [address] [place] [phone] 02/19/2024 Medardo Delgado Jr Gastroesophageal reflux disease without esophagitis K21.9 [facility] [address] [place] [phone] 02/21/2024 Medardo Delgado Jr [facility] [address] [place] [phone] 03/19/2024 Medardo Delgado Jr [facility] [address] [place] [phone] 04/02/2024 Medardo Delgado Jr [facility] [address] [place] [phone] 04/05/2024 Medardo Delgado Jr [facility] [address] [place] [phone] 10/24/2024 Medardo Delgado Jr [facility] [address] [place] [address] 10/30/2024 Medardo Delgado Jr Assessments Encounter Date [...] Maximus vallecillo Jr, 08/14/2025 03:35:00 PM, [address], [place], [address], Insurance Providers Payer Name Payer Address Payer Phone Subscriber Number Group Number Insured Name Patient Relationship to Insured Coverage Start Date Coverage End Date MEDICAID OF [facility] [address] [place] [address] [id number] YUAN LR Self - patient is the insured Medical (General) History Medical History History ICD Code hypertension obesity Hypothyroidism asthma arthritis SANDEEP + colonoscopy 06/26/19, 1 adenoma, five-yea r followup recommended Gastroesophageal reflux dise [facility], EGD/03/23, no Santos's esophagus or H. pylori.EGD 03/26, no H. pylori, Santos's esophagus, or celiac disease. Obstructive sleep apnea type II diabetes Surgical History Surgery Date(Month/Year) knee surgery-right cholecystectomy tubal ligation breast biopsy
== END 2024-11-08 13:35 | disposition home or self-care (01) ==
LOC: HO.US 13:34
PROVIDERS: PCP Internal Medicine; Visit Provider Obstetrics & Gynecology
DX: R10.2 Pelvic and perineal pain (principal)
CPT/HCPCS: 76830; 76856

== ENCOUNTER → 2024-11-08 13:41 | Outpatient (BNV) | payer MEDICAID, SELFPAY | PROVIDERS: PCP Internal Medicine; Visit Provider Radiology Diagnostic Radiology | DX: R10.2 Pelvic and perineal pain (principal) | CPT/HCPCS: 76830; 76856 ==

== ENCOUNTER 2024-11-20 11:27 | Emergency (ER) | payer MEDICAID, SELFPAY ==
--- NOTE | ~2024-11-20 | XR_ITS ---
EXAMINATION: XR CHEST CLINICAL INFORMATION: pain COMPARISON: October 12, 2023 TECHNIQUE: 2 views of the chest were obtained. FINDINGS: There is moderate globular enlargement of the cardiac silhouette. There is atherosclerotic calcification in the aortic arch. There is new small focal opacity in the right midlung zone just cephalad to the minor fissure. There is minimal linear subsegmental atelectasis in the mid third left lung zone. XR/XR chest 2V IMPRESSION: Stable focal opacity in the right mid third lung zone abutting minor fissure could represent pneumonia or atelectasis. Cardiomegaly. Electronically signed by: Daryl Maxwell MD 11/20/2024 12:13 PM EDT
[2024-11-20 11:53] VITALS: BP 130/64; PULSE 76; RESP 20; O2SAT 99; BMI 36.1
--- NOTE | 2024-11-20 11:56 | ED.GENADULT ---
HPI - General Adult General Chief complaint: Upper Respiratory Symptoms Stated complaint: asthma, sob Time Seen by Provider: 11/20/24 16:08 Source: patient, RN notes reviewed, old records reviewed and staff interpreter Mode of arrival: ambulatory Limitations: language barrier History of Present Illness ED Provider: KENY HPI narrative: Patient is a 64-year-old female with history of asthma, COPD, JORGE on CPAP presenting with 5 days of productive cough, chest pain with coughing and subjective fevers. Also complaint of shortness of breath and wheezing. Denies chest pain at rest, denies palpitations. MD complaint: cough, fever Onset (ago): day(s) Related Data Home Medications ?Medication ?Instructions ?Recorded ?Confirmed aspirin 81 mg tablet,delayed 81 mg PO DAILY 04/08/20 03/29/24 release kgcujcwpqv-sifzbyskmgjbz-adsngrkk 1 cap PO Q4-6H PRN Migraine 04/08/20 03/29/24 50 mg-325 mg-40 mg capsule Headache cyclobenzaprine 10 mg tablet 10 mg PO TID 04/08/20 03/29/24 docusate sodium 100 mg capsule 100 mg PO BID 04/08/20 03/29/24 fluticasone propionate 50 1 spray intranasal DAILY 04/08/20 03/29/24 mcg/actuation nasal spray,suspension (Flonase Allergy Relief) hydralazine 50 mg tablet 50 mg PO TID 04/08/20 03/29/24 levothyroxine 75 mcg tablet 75 mcg PO DAILY 04/08/20 03/29/24 (Synthroid) losartan 100 mg tablet 100 mg PO DAILY 04/08/20 03/29/24 metoprolol succinate 100 mg 100 mg PO DAILY 04/08/20 03/29/24 tablet,extended release 24 hr montelukast 10 mg tablet 10 mg PO BEDTIME 04/08/20 03/29/24 (Singulair) nitroglycerin 0.4 mg sublingual 0.4 mg sublingual Q5M PRN Chest 04/08/20 03/29/24 tablet (Nitrostat) Pain polyethylene glycol 3350 17 gram 17 g PO DAILY 04/08/20 03/29/24 oral powder packet (Miralax) rosuvastatin 40 mg tablet (Crestor) 40 mg PO DAILY 04/08/20 03/29/24 topiramate 50 mg tablet 50 mg PO BID 04/08/20 03/29/24 verapamil 300 mg capsule 24hr 300 mg PO BEDTIME 04/08/20 03/29/[address],ext.release furosemide 20 mg tablet 20 mg PO BID 02/09/21 03/29/24 dicyclomine 20 mg tablet 20 mg PO BID 08/27/21 03/29/24 famotidine 40 mg tablet 40 mg PO DAILY 08/27/21 03/29/24 metformin 500 mg tablet,extended 1,000 mg PO BID 08/27/21 03/29/24 release 24 hr dulaglutide 0.75 mg/0.5 mL 0.75 mg subcut QWEEK 09/22/21 03/29/24 subcutaneous pen injector ([facility]) hydrocortisone 2.5 % topical cream 1 appl topical BID 03/11/22 03/29/24 with perineal applicator ([employer] [facility]) Previous Rx's ?Medication ?Instructions ?Recorded acetaminophen 650 mg 650 mg PO Q8H PRN pain #90 tabs 07/14/20 tablet,extended release (Mapap Arthritis Pain) duloxetine 60 mg capsule,delayed 60 mg PO QAM #30 caps 06/02/21 release Walker with seat #1 ea 01/04/24 celecoxib 200 mg capsule 200 mg PO BID #60 caps 05/29/24 albuterol sulfate 90 mcg/actuation 1 puff inhalation QID for asthma 09/02/24 aerosol inhaler (Ventolin HFA) #18 grams fluticasone propionate 115 2 puff inhalation BID #12 grams 10/28/24 mcg-salmeterol 21 mcg/actuation HFA inhaler (Advair HFA) albuterol sulfate 90 mcg/actuation 2 puff inhalation Q4-6H PRN 11/20/24 aerosol inhaler (Ventolin HFA) shortness of breath or wheezing #6.7 grams amoxicillin 875 mg-potassium 1 tab PO BID #14 tabs 11/20/24 clavulanate 125 mg tablet azithromycin 250 mg tablet See Rx Instructions PO .COMPLEX #6 11/20/24 tabs benzonatate 100 mg capsule 100 mg PO TID PRN cough #20 caps 11/20/24 Allergies Allergy/AdvReac Type Severity Reaction Status Date / Time codeine (CODEINE) Allergy Intermediate LOWERED Verified 11/20/24 11:56 PLATELETS atorvastatin Allergy Mild Headache Verified 11/20/24 11:56 amlodipine Allergy Unknown Unknown Verified 11/20/24 11:56 clonidine Allergy Unknown Unknown Verified 11/20/24 11:56 shellfish derived (shellfish) Allergy Unknown Unknown Verified 11/20/24 11:56 pseudoephedrine (From Allergy Unknown Verified 11/20/24 11:56 Sudafed) Review of Systems Review of Systems: as per hpi Yes all other systems are reviewed and are negative Constitutional: Constitutional: Reports as per [facility] Past Medical History Medical History History of myocardial infarction Nicotine dependence, cigarettes, uncomplicated Asthma with COPD Cough Breast calcification, left Obesity (BMI 30-39.9) Breast mass, right Venous insufficiency Elevated cholesterol CAD (coronary artery disease) GERD (gastroesophageal reflux disease) Arthritis Hypothyroid HTN (hypertension) Asthma Allergic rhinitis JORGE on CPAP Surgical History History of esophagogastroduodenoscopy (EGD) Hx of arthroscopic knee surgery History of total right knee replacement (10/19/17) H/O colonoscopy Family History Family History Father Prostate cancer Diabetes Alzheimer dementia HTN (hypertension) Mother Aneurysm Daughter Diabetes Social History Social History Household Members: None Housing: House Alcohol intake: former Patient Tobacco Use Status: Current everyday Tobacco user Tobacco use type: Cigarette Cigarette Packs Per Day: 0.5 Cigarettes Per Day: 10 Years Smoked: (onset 15yo, x 48yrs, max 2ppd - now 1/2-3/4ppd - 50pyh) Advance Directives: No Advance Directives Information Provided: Yes Current occupational status: disabled 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 Blood pressure normal. Heart rate normal. Respiratory rate normal. Temperature normal. Oxygen saturation normal. Const General: cooperative, healthy appearing and no acute distress Orientation/consciousness: oriented to person, oriented to place, oriented to time and patient oriented x3 Limitations: no limitations HENMT Head: Yes normocephalic and Yes atraumatic Ears: external ears normal General nose exam: Normal external nose present Face and sinus: Yes face symmetric Mouth: oropharynx normal and moist mucous membranes Throat: Yes uvula midline Eyes Pupils: Equal, round and reactive pupils present Neck Neck: Yes normal visual inspection and Yes supple Resp Effort & Inspection: normal respiratory effort and able to speak in complete sentences Auscultation: clear to auscultation bilaterally and wheezes scattered wheezes Cardio Rate: regular rate Rhythm: regular rhythm Heart sounds: S1 normal heart sound present and S2 normal heart sound present GI Palpation (GI): Soft to palpation and nontender Auscultation: normoactive bowel sounds General: Yes no CVA tenderness Back/Spine/Pelvis Back: no CVA tenderness Skin General skin exam: elasticity normal and turgor normal Neuro General: oriented to person, oriented to place, oriented to time, patient oriented x3, moves all extremities, no focal motor deficits and CN's II-XI intact bilaterally Cranial nerves: Yes Equal, round and reactive pupils present Cognition (Neuro): normal cognition Extrem General: Yes full ROM, Yes no pedal edema and Yes no calf tenderness Psych Mental Status: mental status grossly normal Affect: normal affect Thought process: Normal thought process present Course Course Course Narrative: RME, this is a rapid medical exam performed by Aguila Henderson please refer to primary provider for complete H&P- 64-year-old female presents for evaluation of cough, rib pain with coughing and fevers and chills for the last 5 days. Plan for x-ray and viral swabs. She does have faint wheezing on exam. Vital signs are stable Medical Decision Making Medical Decision Making MDM Narrative: Patient is a 64-year-old female with history of asthma, COPD, JORGE on CPAP presenting with 5 days of productive cough, chest pain with coughing and subjective fevers. On exam patient is awake, A+Ox3, VS WNL, afebrile, normal neurological exam without focal deficits, physical exam findings as above. Given reported symptoms and physical exam findings, initial differential includes but is not limited to viral illness, covid, flu, bronchitis, pneumonia. Viral serology negative. X-ray chest notable for right middle lobe pneumonia. My interpretation is in agreement with the radiologist's interpretation. Results discussed with patient and all questions answered. Will treat with Augmentin and azithro as well as albuterol inhaler and benzonatate. Results disucssed with patient and all questions answered. Return precautions discussed as well as follow up with PCP. Patient verbalized understanding of and agreement with plan. In-person court interpreter was utilized for all interactions, assessments, and discussions. Differential Diagnosis Differential Diagnoses: The differential diagnosis associated with the presentation includes as per [facility] Admission/Observation Consideration of admission/observation: Escalation of care including admission/observation considered Patient would have been admitted to the hospital had their clinical presentation warranted hospital admission. Lab Data [facility] Lab Attestation statement: I reviewed the patient's lab results. as per [facility] Labs: Lab Results 11/20/24 Range/Units 12:44 Influenza Type A (PCR) NEGATIVE (Negative) Influenza Type B (PCR) NEGATIVE (Negative) RSV RNA Qual (PCR) NEGATIVE (Negative) SARS-CoV-2 RNA (RT-PCR) NEGATIVE (Negative) S. pyogenes GrpA SHAQUILLE Negative (Negative) Independent Interpretation I performed an independent interpretation of an: Plain X-Ray Interpretation: Right mid lung pneumonia Radiology Impression Discussion of test interpretation with radiology: I have reviewed the radiologist's reading. Radiologist Impression: XR/XR chest 2V IMPRESSION: Stable focal opacity in the right mid third lung zone abutting minor fissure could represent pneumonia or atelectasis. External Record Review External record reviewed: Inpatient record, Office record and Outpatient record Prescription Management I considered prescription management with: Antibiotic and Other Discharge Plan Discharge Clinical Impression: Community acquired pneumonia Qualifiers: Laterality: right Lung location: middle lobe of lung Qualified Code(s): J18.9 - Pneumonia, unspecified organism Patient Disposition: Home, Self-Care Instructions: Community Acquired Pneumonia (DC) Additional Instructions: You were evaluated in the emergency department today for cough and shortness of breath. Your chest x-ray shows evidence of pneumonia. You are being treated with antibiotics, please complete the full course as prescribed. You are also being prescribed an inhaler and cough medicine which you can use per instructions. KEEP THE BENZONATATE OUT OF REACH OF CHILDREN. Please call your primary care provider within the next 2-3 days to schedule a follow-up appointment. You will need a repeat chest x-ray to confirm resolution of your pneumonia. Return to the emergency department if you develop worsening shortness of breath, chest pain, palpitations, fever 100.4? F or greater, or any other concerning symptoms. Prescriptions: New amoxicillin-pot clavulanate 875-125 mg tablet 1 tab PO BID Qty: 14 0RF azithromycin 250 mg tablet See Rx Instructions .ROUTE .COMPLEX Qty: 6 0RF Rx Instructions: For 250 mg dose pack: take 500 mg today (day 1), then 250 mg for 4 days (days 2-5) benzonatate 100 mg capsule 100 mg PO TID PRN (Reason: cough) Qty: 20 0RF albuterol sulfate [Ventolin HFA] 90 mcg/actuation HFA aerosol inhaler 2 puff inhalation Q4-6H PRN (Reason: shortness of breath or wheezing) Qty: 6.7 0RF No Action acetaminophen [Mapap Arthritis Pain] 650 mg tablet extended release 650 mg PO Q8H PRN (Reason: pain) Qty: 90 3RF duloxetine 60 mg capsule,delayed release(DR/EC) 60 mg PO QAM Qty: 30 0RF (DME) Walker with seat See Rx Instructions .Route .MEDSUPPLY Qty: 1 0RF Rx Instructions: As directed albuterol sulfate [Ventolin HFA] 90 mcg/actuation HFA aerosol inhaler 1 puff inhalation QID Qty: 18 3RF fluticasone propion-salmeterol [Advair HFA] 115-21 mcg/actuation HFA aerosol inhaler 2 puff inhalation BID Qty: 12 0RF aspirin 81 mg tablet,delayed release (DR/EC) 81 mg PO DAILY hydralazine 50 mg tablet 50 mg PO TID losartan 100 mg tablet 100 mg PO DAILY verapamil 300 mg capsule, [address] 300 mg PO BEDTIME uuzpndaugl-impauuihblqlz-scvh 50-325-40 mg capsule 1 cap PO Q4-6H PRN (Reason: Migraine Headache) rosuvastatin [Crestor] 40 mg tablet 40 mg PO DAILY fluticasone propionate [Flonase Allergy Relief] 50 mcg/actuation spray,suspension 1 spray intranasal DAILY Rx Instructions: administer into each nostril polyethylene glycol 3350 [Miralax] 17 gram powder in packet 17 g PO DAILY nitroglycerin [Nitrostat] 0.4 mg tablet, sublingual 0.4 mg sublingual Q5M PRN (Reason: Chest Pain) Rx Instructions: do not exceed 3 doses per episode levothyroxine [Synthroid] 75 mcg tablet 75 mcg PO DAILY docusate sodium 100 mg capsule 100 mg PO BID topiramate 50 mg tablet 50 mg PO BID metoprolol succinate 100 mg tablet extended release 24 hr 100 mg PO DAILY montelukast [Singulair] 10 mg tablet 10 mg PO BEDTIME cyclobenzaprine 10 mg tablet 10 mg PO TID furosemide 20 mg tablet 20 mg PO BID dicyclomine 20 mg tablet 20 mg PO BID famotidine 40 mg tablet 40 mg PO DAILY metformin 500 mg tablet extended release 24 hr 1,000 mg PO BID hydrocortisone [[employer] HC] 2.5 % cream with perineal applicator 1 appl topical BID Trulicity 0.75 mg/0.5 mL pen injector 0.75 mg subcut QWEEK Rx Instructions: takes on celecoxib 200 mg capsule 200 mg PO BID Qty: 60 3RF Interventions: ED Discharge Assessment Last Done: 11/20/24 16:26 Print Language: Greenlandic
[2024-11-20 13:00] LABS: IDNOW Serial# 55D5AD1C; Strep A Nucleic Acid Negative (Negative)
[2024-11-20 13:29] LABS: Resp Syncy Virus RNA Qual PCR NEGATIVE (Negative); SARS COV2 PCR INHOUSE NEGATIVE (Negative)
--- OUTSIDE RECORDS SUMMARY | 2024-11-20 13:40 | XMS_ITS | Encounter Summary ---
Author Organization [facility] Address [address] [place] [address] Phone Care Team Providers Care Agricultural Engineering Technician Name Role Phone Pcp, Unknown Primary Care Provider Unavailabl e Encounter Details Date Type Department Care Team (Late st Contact Info) Description 08/29/2019 Ancillary Orders [facility] [address] [place] [address] Landy Rossi PA [address] [place] [id number] [email or web address] Palpitations Social History Tobacco Use Types Packs/Day [...] Palpitations documented in this encounter Care Teams Agricultural Engineering Technician Relationship Specialty Start Date End Date Pcp, Unknown PCP - General 08/29/19 documented as of this encounter Additional Source Comments The information contained in this document represents components of the legal health record. It is not the complete legal health record.[facility]
--- OUTSIDE RECORDS SUMMARY | 2024-11-20 13:40 | XMS_ITS | Patient Health Record ---
Author Organization [facility] Address [address] [place] [address] Care Team Providers Care Driller Brake Lining Name Role Phone Mirella Jara MD, Lasha Primary Care Provide Medardo Thornton Jr Unavailable Allergies Allergen (clinical drug ingredient) Drug/Non Drug Allergy documented on EMR Reaction Allergy Type Onset Date Status codeine Codeine Sulfate Unknown Drug Allergy A ctive Results Component Value Reference Range Notes Complete Blood Count no Diff Reviewed date:04/02/2024 02:01:30 PM Interpretation: Performing Lab:[facility], [address] [place] [address] Notes/Report: White Blood Count 8.0 4.8-10.8 X10*3/uL [...] Panel Reviewed date:04/02/2024 02:01:14 PM Interpretation: Performing Lab:[facility], [address] [place] [phone] Notes/Report: Bilirubin Total 0.2 0.0-1.0 mg/dL Bilirubin Direct < 0.2 0.0-0.5 mg/dL Aspartate Amino Transferase 21 5-31 U/L Alanine Aminotransferase 22 0-31 U/L Total Protein 7.7 6.5-8.0 g/dL Albumin Level 4.1 3.5-5.0 g/dL Alkaline Phosphatase 128 39-117 U/L IRON PROFILE Reviewed date:04/02/2024 02:01:24 PM Interpretation: Performing Lab:[facility], [address] [place] [phone] Notes/Report: Iron 41 30-160 mcg/dL Total Iron Binding Capacity 335 228-428 mcg/dL Percent Iron Saturation 12 15-50 % Unsaturated Iron Binding 294 Ferritin Reviewed date:04/02/2024 02:01:49 PM Interpretation: Performing Lab:[facility], [address] [place] [phone] Notes/Report: Ferritin 11 10-250 ng/mL Liver Fibrosis Pnl Reviewed date:04/08/2024 08:30:50 AM Interpretation: Performing Lab:[facility], [address] [place] [phone] Notes/Report: Liver Fibrosis Score 0.19 Liver Fibrosis [...] a>0.62 and a<=1.00 : A3 (severe activity) DFK-Bmsih-7-Macroglobuli n 219 106-279 mg/dL FIB-Haptoglobin 217 43-212 mg/dL FIB-Apolipoprotein A1 153 101-198 mg/dL FIB-Total Bilirubin 0.2 0.2-1.2 mg/dL FIB-GGT 119 3-65 U/L FIB-ALT 14 6-29 U/L Reference ID [id number] Footnote SEE NOTE The reliability of results is dependent on compliance with the preanalytical and analytical conditions recommended by [employer]. The tests have to be deferred for: [...] The performance characteristics have been determined by [facility]. It has not been cleared or approved by the U.S. Food and Drug Administration. Performance characteristics refer to the analytical performance of the test. Apiphany, the associated logo, Codexis and all associated [employer] givens are the registered trademarks of [employer]. All third green party givens - (R) and (TM) - are the property of their respective owners. (C) [id number] [employer]. All rights reserved. THIS TEST WAS PERFORMED AT: [employer] [address] [place] [address] TRAVIS BOO MD,PHD,TRINY SANDEEP Reflex Titer and Pattern Reviewed date:04/05/2024 02:03:11 PM Interpretation: Performing Lab:[facility], [address] [place] [phone] Notes/Report: Anti Nuclear Antibody Screen NEGATIVE NEGATIVE [...] Negative International Consensus on SANDEEP Patterns (https://doi.org/10.151 5/wqhc-5615-2122) For additional information, please refer to http://education.Plyce/faq/FAQ1 10 (This link is being provided for informational/ educational purposes only.) THIS TEST WAS PERFORMED AT: [facility] [address] [place] [address] JEAN PAUL LEWIS MD Anti Nuclear Antibody Titer TNP Anti Nuclear Antibody Pattern TNP SANDEEP Titer 2 TNP SANDEEP Pattern 2 TNP SANDEEP Titer 3 TNP SANDEEP Pattern 3 TNP Mitochondrial Antibody Reviewed date:04/09/2024 03:01:22 PM Interpretation: Performing Lab:[facility], [address] [place] [phone] Notes/Report: Mitochondrial Antibodies NEGATIVE NEGATIVE The specimen was negative for cytoplasmic antibodies, however additional staining was observed suggesting the presence of Antinuclear Antibodies. Consider requesting order code 249, SANDEEP Screen, IFA with Reflex to Titer and Pattern, or order code [id number], SANDEEP Screen, IFA w/reflex Titer/Pattern, and Reflex to Multiplex 11 Ab Tucker, if clinically indicated. THIS TEST WAS PERFORMED AT: [facility] [address] [address] JEAN PAUL LEWIS MD Mitochondrial Ab Titer TNP Smooth Muscle Antibody Reviewed date:04/09/2024 03:01:16 PM Interpretation: Performing Lab:[facility], [address] [place] [phone] Notes/Report: Smooth Muscle Antibody 25 <20 U [...] type 1. THIS TEST WAS PERFORMED AT: [employer] [facility]/[address] [address] SIGRID MOLINA MD,PHD Hepatitis A,B,C Profile Reviewed date:04/02/2024 02:01:41 PM Interpretation: Performing Lab:[facility], [address] [place] [phone] Notes/Report: Hepatitis A Antibody IgM Nonreactive Nonreactive [...] Blood Reviewed date:04/02/2024 01:59:23 PM Interpretation: Performing Lab:[facility], [address] [place] [phone] Notes/Report: Glucose, Whole Blood 106 60-115 mg/dL METER # : [id number] Pathology Reviewed date:04/05/2024 03:24:48 PM Interpretation: Performing Lab:[facility], [address] [place] [phone] Notes/Report: Complete Blood Count Auto Di ff Reviewed date:10/24/2024 08:44:04 AM Interpretation: Performing Lab:[facility], [address] [place] [phone] Notes/Report: White Blood Count 7.8 4.8-10.8 X10*3/uL [...] Panel Reviewed date:10/24/2024 08:39:47 AM Interpretation: Performing Lab:[facility], [address] [place] [phone] Notes/Report: Sodium 143 135-145 mmol/L Potassium 3.9 [...] Panel Reviewed date:10/24/2024 08:39:21 AM Interpretation: Performing Lab:[facility], [address] [place] [phone] Notes/Report: Triglycerides 147 <150 mg/dL Desirable Triglyceride: [...] Pattern Reviewed date:10/30/2024 05:07:02 PM Interpretation: Performing Lab:[facility], [address] [place] [phone] Notes/Report: Anti Nuclear Antibody Screen POSITIVE NEGATIVE SANDEEP IFA is a first line screen for detecting the presence of up to approximately 150 autoantibodies in various autoimmune diseases. A positive SANDEEP IFA result is suggestive of autoimmune disease and reflexes to titer and pattern. Further laboratory testing may be considered if clinically indicated. For additional information, please refer to http://education.Plyce/faq/FAQ1 77 (This link is being provided for informational/ educational purposes only.) Anti Nuclear Antibody Titer 1:1280 Reference Range <1:40 Negative 1:40-1:80 Low Antibody Level >1:80 Elevated Antibody Level Anti Nuclear Antibody Pattern Nuclear, Nucleolar Nucleolar pattern is associated with systemic sclerosis (scleroderma), systemic sclerosis/polymyositis overlap and Sjogren's syndrome. AC-8,9,10: Nucleolar International Consensus on SANDEEP Patterns (https://doi.org/10151 uyvg-5179-9861) SANDEEP Titer 2 1:320 Reference Range <1:40 Negative 1:40-1:80 Low Antibody Level >1:80 Elevated Antibody Level SANDEEP Pattern 2 Nuclear, Homogeneous Homogeneous pattern is associated with systemic lupus erythematosus (SLE), drug-induced lupus and juvenile idiopathic arthritis. AC-1: Homogeneous International Consensus on SANDEEP Patterns (https://doi.org/10151 mmdf-4190-4839) THIS TEST WAS PERFORMED AT: [facility] [address] [place] [phone] JEAN PAUL LEWIS MD SANDEEP Titer 3 TNP SANDEEP Pattern 3 TNP US abdomen complete Reviewed date:10/24/2024 08:44:16 AM Interpretation: Performing Lab: Notes/Report: [place] [address] Ultrasound Report Signed Patient: Yuan Waters MR#: [id number] : 1960 Acct:[id number] Age/Sex: 64 / F ADM Date: 10/23/24 Loc: HO.US Attending Dr: Medardo Delgado MD Ordering Physician: Medardo Delgado MD Date of Service: 10/23/24 Procedure(s): US abdomen complete Accession Number(s): [id number] cc: Medardo Delgado MD; Lasha Castillo MD [...] OV> 10/23/24 0943 DD/ 0835 TD/TT: 10/23/2417 Bricklayer Sewer: HIV Ab/Ag Reviewed date:10/24/2024 08:38:16 AM Interpretation: Performing Lab:[facility], [address] [place] [phone] Notes/Report: HIV AB/AG Nonreactive Nonreactive HIV-1 p24 [...] limit of detection of this assay. The Conject HIV Ag/Ab Combo assay result and supplemental [...] Referred Provider Medardo Delgado Jr Referred Address [address] [place] [address],[place] [address],[place], [place],[address],[place] Referred Provider Specialty Gastroentero logy General Notes Kelsi Christianson 2024 09:59:43 AM >requested a [facility] referral from [facility] for visit with dr akins [...] 200 MG TAKE 1 CAPSULE BY [facility] TWICE DAILY Oral for 30 Active Immunizations Vaccine Route Administration Date Status Comme nts Influenza Unknown 12/02/2018 Administered Influenza Unknown 01/15/2020 Administered Influenza Unknown 01/01/2022 Administered Influenza Unknown 08/31/2023 Refused Problems Problem Type SNOMED Code ICD Code Onset Dates Problem Status W/U Status Risk Notes Problem 08055322 Rectal bleeding (K62.5) Active confirmed Problem 72282563 Constipation (K59.00) Active confirmed Problem Gastroesophageal reflux disease (792139975) Gastroesophageal reflux disease (K21.9) Active confirmed Problem 505299453 Gastroesophageal reflux disease without esophagitis (K21.9) Active confirmed Problem 351720744 Fatty liver (K76.0) Active confirmed Problem 03107939 Hiatal hernia (K44.9) Active confirmed Problem 62856872 Dysphagia, unspecified type (R13.10) Active confirmed Problem 649116920 Abnormal UGI series (R93.3) Active confirmed Problem 078304468 Irritable bowel syndrome with constipation (K58.1) Active confirmed Problem 000423443 GERD without esophagitis (K21.9) Active confirmed Problem 632745444 LUQ pain (R10.12) Active confirmed Problem 500967095 LLQ pain (R10.32) Active confirmed Problem 611184510 Epigastric mass (R19.06) Active confirmed Vital Signs Blood pressure diastolic 77 mm Hg 08/29/2024 Height 66.5 in 08/29/2024 Blood pressure systolic 111 mm Hg 08/29/2024 Weight 225 lbs 08/29/2024 BMI 35.77 kg/m2 08/29/2024 Encounters Encounter Location Date Provider Diagnosis [facility] [address] [place] [id number] 04/02/2024 Medardo Delgado Jr Abnormal UGI series R93.3 [facility] [address] [place] [phone] 03/14/2024 Medardo Delgado Jr Abnormal UGI series R93.3 ; Dysphagia, unspecified type R13.10 and Fatty liver K76.0 [facility] [address] [place] [id number] 08/29/2024 Medardo Delgado Jr Abdominal pain R10.9 ; Gastroesophageal reflux disease without esophagitis K21.9 and Constipation K59.00 [facility] [address] [place] [id number] 02/19/2024 Medardo Delgado Jr Gastroesophageal reflux disease without esophagitis K21.9 [facility] [address] [place] [id number] 02/21/2024 Medardo Delgado Jr [facility] [address] [place] [id number] 03/19/2024 Medardo Delgado Jr [facility] [address] [place] [id number] 04/02/2024 Medardo Delgado Jr [facility] [address] [place] [id number] 04/05/2024 Medardo Delgado Jr [facility] [address] [place] [id number] 10/24/2024 Medardo Delgado Jr [facility] [address] [place] [address] 10/30/2024 Medardo Delgado Jr Assessments Encounter Date [...] Maximus vallecillo Jr, 08/14/2025 03:35:00 PM, [address], [address], [place], [address], Insurance Providers Payer Name Payer Address Payer Phone Subscriber Number Group Number Insured Name Patient Relationship to Insured Coverage Start Date Coverage End Date MEDICAID OF [facility] [address] [place] [address] [id number] YUAN LR Self - patient is the insured Medical (General) History Medical History History ICD Code hypertension obesity Hypothyroidism asthma arthritis SANDEEP + colonoscopy 06/26/19, 1 adenoma, five-yea r followup recommended Gastroesophageal reflux dise [employer] [facility] [employer] [facility], EGD/03/23, no Santos's esophagus or H. pylori.EGD 03/26, no H. pylori, Santos's esophagus, or celiac disease. Obstructive sleep apnea type II diabetes Surgical History Surgery Date(Month/Year) knee surgery-right cholecystectomy tubal ligation breast biopsy
--- OUTSIDE RECORDS SUMMARY | 2024-11-20 13:40 | XMS_ITS | Clinical Summary ---
Author Organization [facility] Address [address] [place] [address] Phone Care Team Providers Care Pulpwood Dealer Name Role Phone Lasha Castillo MD Primary [...] 10:45 AM EDT Consult Orthopedic Surgery - [place] [address] [address] Estevan Viramontes, MIAH [address] [address] Health Maintenance Due Date Last Done Comments [...] topic Insurance MEDICA[place] - [place] Care Teams Pulpwood Dealer Relationship Specialty Start Date End Date Lasha Castillo MD [address] [place] [address] PCP - General Internal Medicine 09/09/24
--- OUTSIDE RECORDS SUMMARY | 2024-11-20 13:40 | XMS_ITS | Encounter Summary ---
Author Organization [employer] Address [address] [place] [address] [address] [place] [address] Care Team Providers Care Construction Management Instructor Name Role Phone Lasha Marrufo MD Primary Care Provide r Farzad Sandhu MD Unavailable [phone] Encounter Details Date Type Department Care Team (Late st Contact Info) Description 08/22/2022 Abstract [facility] [address] [place] [address] [phone] Lasha Marrufo MD [address] [place] [address] [phone] Social History Tobacco Use Types Packs/Day Years [...] Description 12/10/2024 1:15 PM EDT Office Visit [facility] [address] [place] [address] [phone] Lasha Marrufo MD [address] [place], [place] [phone] 01/28/2025 3:00 PM EDT Office Visit [facility] [address] [place] [address] Lasha Marrufo MD [address] [place] [address] documented as of this encounter Procedures Procedure [...] on filedocumented in this encounter Care Teams Construction Management Instructor Relationship Specialty Start Date End Date Lasha Marrufo MD [address] [place] [address] PCP - General Internal Medicine 12/25/13 Farzad Sandhu MD [address] [place] [address] Cardiology 11/08/24 documented as of this encounter
[2024-11-20 16:26] VITALS: BP 141/81; PULSE 80; RESP 18; TEMP 36.9; O2SAT 98
== END 2024-11-20 16:32 | disposition home or self-care (01) ==
PROVIDERS: Physician Assistant; Emergency Provider Emergency Medicine; PCP Internal Medicine
DX: J18.9 Pneumonia, unspecified organism (principal); J44.9 Chronic obstructive pulmonary disease, unspecified; I10 Essential (primary) hypertension; G47.33 Obstructive sleep apnea (adult) (pediatric); I25.2 Old myocardial infarction; Z79.899 Other long term (current) drug therapy
CPT/HCPCS: 71046; 87637; 87651; 99282; 99283

== ENCOUNTER → 2024-11-20 11:56 | Outpatient (BNV) | payer MEDICAID, SELFPAY | PROVIDERS: PCP Internal Medicine; Visit Provider Radiology Diagnostic Radiology | DX: R07.9 Chest pain, unspecified (principal) | CPT/HCPCS: 71046 ==

== ENCOUNTER 2024-11-26 11:10 | Outpatient (AMB) | payer MEDICAID, SELFPAY ==
--- OUTSIDE RECORDS SUMMARY | 2024-04-02 06:20 | XMS_ITS ---
Author Organization [facility] Address [address] [place] [address] [place] [phone] Care Team Providers Care Field Health Officer Name Role Phone Mirella Jara MD, Lasha Primary Care Provide r Medardo Ortega Jr REASON FOR VISIT abn ugi series Encounters Encounter Location Date Provider Diagnosis [facility] [place] [address] [place] [phone] 04/02/2024 Medardo Delgado Jr Abnormal UGI series R93.3 Assessments Encounter Date Diagnosis (ICD Code) Assessment Notes Treatment Notes Treatment Clinical Notes Section Notes 04/02/2024 Abnormal UGI series (ICD-10 - R93.3) Plan Of Treatment Next Appt Details Provider Name:Medardo vallecillo Jr, 08/14/2025 03:35:00 PM, [address] [place] [address], Suite [facility], [place], [address], Progress Notes * FRANTZ WATERSOB:[birth year] (64 yo F)Acc No.[id number]:04/02/2024 EGD/MAC Patient: Ajit QUINONESMARIFER YUAN Provider: Josh Delgado MD :1960 A ge:64 Y S ex:Female Date:04/02/2024 Address:[address] [place], [place] [phone] Pcp:Lasha holcomb MD Subjective: * Chief Complaints: [...] 1 Generated for Deb kay/Hunter/Jorgeransmitting on: 0 11/26/2024 12:07 PM EDT
--- NOTE | 2024-11-26 11:11 | A.OFFVIS_ITS ---
Vital Signs 11/26/24 11:12 Height 5 ft 6 in Weight 223 lb BMI 36.0 Intake Visit Reasons: ultrasound follow up Home Care Associate Required: Yes Home Care Associate Language: Service Desk Technician Services: Home Care Associate Present (in person) Home Care Associate Name: Franca HOBSON Information Interpreted: non-clinical & clinical Accompanied by: Self / Same As Patient Allergies codeine (CODEINE) Allergy (Intermediate, Verified 11/26/24 11:15) LOWERED PLATELETS atorvastatin Allergy (Mild, Verified 11/26/24 11:15) Headache amlodipine Allergy (Unknown, Verified 11/26/24 11:15) Unknown clonidine Allergy (Unknown, Verified 11/26/24 11:15) Unknown shellfish derived (shellfish) Allergy (Unknown, Verified 11/26/24 11:15) Unknown pseudoephedrine (From Sudafed) Allergy (Verified 11/26/24 11:15) Unknown Post menopausal: Yes HPI Comments Details: Presenting for follow-up regarding her pelvic pain. The patient is doing well. The following workup was done so far: GC/CT negative. Last visit urine dip was negative. Pelvic ultrasound showed the following: Transabdominal scanning performed for overall anatomy. Transvaginal scanning performed for additional detail. Anteverted uterus is 6.9 cm length. Normal myometrium. Endometrium 4 mm thickness. No lesions. Right ovary 2.5 x 1.4 x 1.1 cm. Left ovary 1.6 x 1.4 x 1.1 cm. No free fluid. IMPRESSION: 1. 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) H/O colonoscopy Family History Father Prostate cancer Diabetes Alzheimer dementia HTN (hypertension) Mother Aneurysm Daughter Diabetes Social History Household Members: None Housing: House Alcohol intake: former Patient Tobacco Use Status: Current everyday Tobacco user Tobacco use type: Cigarette Cigarette Packs Per Day: 0.5 Cigarettes Per Day: 10 Years Smoked: (onset 15yo, x 48yrs, max 2ppd - now 1/2-3/4ppd - 50pyh) Current occupational status: disabled 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 Sexual orientation: Straight/Heterosexual Gender identity: Female Female Reproductive History Menstrual Age of Menarche: 10 Review of Systems Const All systems reviewed & are unremarkable except as noted in HPI and below Reports as per HPI and Reports no additional complaints GI Reports no additional complaints Reports no additional complaints Physical Exam Vital Signs: BMI result Body Mass Index 36.0 Assessment & Plan Assessment & Plan (1) Pelvic pain: Code(s): R10.2 - Pelvic and perineal pain Category: Medical Plan: Discussed with the patient the results of the workup done including negative GC/chlamydia, urine dip, and pelvic ultrasound. Differential diagnosis of rn peritoneal dialysis causes that have not be ruled out yet include but not limited to endometriosis, pelvic adhesions , or others. Recommended for the patient to see her PCP for further workup for non rn peritoneal dialysis causes; if the all the results are negative and the patient's pelvic pain is persistent, instructions given to patient to call back for further testing. Meanwhile, instructions were given the patient to go to emergency room or call in case of fever above 100.4, heavy vaginal bleeding, persistence or worsening of her pelvic pain. All questions answered, the patient verbalized understanding. Coding Level of Care Code Est Pt Level 3 (96494) Diagnoses Pelvic pain R10.2
[2024-11-26 11:12] VITALS: BMI 36.0
--- OUTSIDE RECORDS SUMMARY | 2024-11-26 12:06 | XMS_ITS | Encounter Summary ---
Author Organization [employer] Address [address] [place] [address] [address] [address] Care Team Providers Care Picked Edge Sewing Machine Operator Name Role Phone Lasha Marrufo MD Primary Care Provide r Farzad Sandhu MD Unavailable [phone] Encounter Details Date Type Department Care Team (Late st Contact Info) Description 08/22/2022 Abstract [facility] [address] [place] [phone] Lasha Marrufo MD [address] [place] [address] [phone] Social History Tobacco Use Types Packs/Day Years [...] Description 12/10/2024 1:15 PM EDT Office Visit [facility] [address] [place] [address] [phone] Lasha Marrufo MD [address] [place], [place] [phone] 01/28/2025 3:00 PM EDT Office Visit [facility] [address] [place] [address] Lasha Marrufo MD [address] [place] [address] documented as of this encounter Procedures Procedure [...] on filedocumented in this encounter Care Teams Picked Edge Sewing Machine Operator Relationship Specialty Start Date End Date Lasha Marrufo MD [address] [place] [address] PCP - General Internal Medicine 12/25/13 Farzad Sandhu MD [address] [place] [address] Cardiology 11/08/24 documented as of this encounter
--- OUTSIDE RECORDS SUMMARY | 2024-11-26 12:06 | XMS_ITS | Encounter Summary ---
Author Organization [employer] Address [address] [facility] [address] [place] [address] Care Team Providers Care Jinriksha Driver Name Role Phone Lasha Marrufo MD Primary Care Provide r Farzad Sandhu MD Unavailable [phone] Encounter Details Date Type Department Care Team (Late st Contact Info) Description 09/05/2022 Orders Only [facility] [address] [place] [phone] Elsa Julien LPN Social History Tobacco Use [...] Description 12/10/2024 1:15 PM EDT Office Visit [facility] [address] [place] [phone] Lasha Marrufo MD [address] [place] [phone] 01/28/2025 3:00 PM EDT Office Visit [facility] [address] [place] [phone] Lasha Marrufo MD [address] [place] [phone] documented as of this encounter Visit Diagnoses Not on filedocumented in this encounter Care Teams Jinriksha Driver Relationship Specialty Start Date End Date Lasha Marrufo MD [address] [place] [address] PCP - General Internal Medicine 12/25/13 Farzad Sandhu MD [address] [place] [address] Cardiology 11/08/24 documented as of this encounter
--- OUTSIDE RECORDS SUMMARY | 2024-11-26 12:06 | XMS_ITS | Encounter Summary ---
Author Organization [employer] Address [address] [place] [address] [address] [address] Care Team Providers Care Family Literacy Coordinator Name Role Phone Lasha Marrufo MD Primary Care Provide r Farzad Sandhu MD Unavailable [phone] Reason for Visit * Reason Comments Med Refill Encounter Details Date Type Department Care Team ([facility] Contact Info) Description 09/08/2022 Refill [facility] [address] [place], [place] [phone] Lasha Marrufo MD [address] [place] [address] Acute non intractable tension-type headache; Anxiety Social [...] Encounters Date Type Department Care Team (Late Contact Info) Description 12/10/2024 1:15 PM EDT Office Visit [facility] [address] [place], [place] [phone] Lasha Marrufo MD [address] [place] [address] 01/28/2025 3:00 PM EDT Office Visit [facility] [address] [place] [phone] Lasha Marrufo MD [address] [place] [address] documented as of this encounter Visit Diagnoses Diagnosis Acute non intractable tension-type headache Anxiety Anxiety state, unspecified documented in this encounter Care Teams Family Literacy Coordinator Relationship Specialty Start Date End Date Lasha Marrufo MD [address] [place] [address] [phone] PCP - General Internal Medicine 12/25/13 Farzad Sandhu MD [address] [place] [address] Cardiology 11/08/24 documented as of this encounter
--- OUTSIDE RECORDS SUMMARY | 2024-11-26 12:06 | XMS_ITS | Encounter Summary ---
Author Organization [employer] Address [address] [facility] [address] [place] [address] Care Team Providers Care Community Center Coordinator Name Role Phone Lasha Marrufo MD Primary Care Provide r Farzad Sandhu MD Unavailable [phone] Reason for Visit * Reason Onset Date Comments Nurse Triage 07/04/2024 Encounter Details Date Type Department Care Team (Late st Contact Info) Description 07/04/2024 Telephone [facility] [address] [place], [place] [phone] Lasha Marrufo MD [address] [place] [address] Nurse Triage Social History Tobacco Use Types [...] Miscellaneous Notes * Telephone Encounter - Cyndie MgMARIBEL - 07/04/2024 1:44 PM EDT Triage call returned with BLS # [id number] Humza. Patient reports dizziness noted with standing. [...] become worse * Telephone Encounter - Braden Coleman - 07/04/2024 1:39 PM EDT Symptom: Dizziness Outcome: Talk to a nurse or provider within 15 minutes Reason: Trouble walking The caller accepted this outcome. documented in this encounter Plan of Treatment Upcoming Encounters Date Type Department Care Team ([facility] st Contact Info) Description 12/10/2024 1:15 PM EDT Office Visit [facility] [address] [place] [phone] Lasha Marrufo MD [address] [place] [phone] 01/28/2025 3:00 PM EDT Office Visit [facility] [address] [place] [phone] Lasha Marrufo MD [address] [place] [phone] documented as of this encounter Goals Goal [...] documented as of this encounter Care Teams Community Center Coordinator Relationship Specialty Start Date End Date Lasha Marrufo MD [address] [place] [phone] PCP - General Internal Medicine 12/25/13 Farzad Sandhu MD [address] [place] [address] Cardiology 11/08/24 documented as of this encounter
--- OUTSIDE RECORDS SUMMARY | 2024-11-26 12:06 | XMS_ITS | Encounter Summary ---
Author Organization [facility] Address [address] [place] [phone] Phone Care Team Providers Care Academic Department Chair Name Role Phone Pcp, Unknown Primary Care Provider Unavailabl e Encounter Details Date Type Department Care Team (Late st Contact Info) Description 08/29/2019 Ancillary Orders [facility] [address] [place] [address] Landy Rossi PA [address] [place] [phone] [email or web address] Palpitations Social History Tobacco Use Types Packs/Day [...] Palpitations documented in this encounter Care Teams Academic Department Chair Relationship Specialty Start Date End Date Pcp, Unknown PCP - General 08/29/19 documented as of this encounter Additional Source Comments The information contained in this document represents components of the legal health record. It is not the complete legal health record.[facility]
--- OUTSIDE RECORDS SUMMARY | 2024-11-26 12:07 | XMS_ITS | Encounter Summary ---
Author Organization [employer] Address [address] [place] [address] [address] [place] [address] Care Team Providers Care Tank Truck Driver Name Role Phone Lasha Marrufo MD Primary Care Provide r Farzad Sandhu MD Unavailable [phone] Encounter Details Date Type Department Care Team (Late st Contact Info) Description 08/04/2022 Abstract [facility] [address] [place] [address] [phone] Lasha Marrufo MD [address] [place] [phone] Social History Tobacco Use Types Packs/Day Years [...] Description 12/10/2024 1:15 PM EDT Office Visit [facility] [address] [place] [address] [phone] Lasha Marrufo MD [address] [place], [place] [phone] 01/28/2025 3:00 PM EDT Office Visit [facility] [address] [place] [address] Lasha Marrufo MD [address] [place] [address] documented as of this encounter Procedures Procedure [...] on filedocumented in this encounter Care Teams Tank Truck Driver Relationship Specialty Start Date End Date Lasha Marrufo MD [address] [place] [address] PCP - General Internal Medicine 12/25/13 Farzad Sandhu MD [address] [place] [address] Cardiology 11/08/24 documented as of this encounter
--- OUTSIDE RECORDS SUMMARY | 2024-11-26 12:07 | XMS_ITS | Encounter Summary ---
Author Organization [employer] Address [address] [place] [address] [address] [place] [address] Care Team Providers Care Gusset Folder Name Role Phone Lasha Marrufo MD Primary Care Provide r Farzad Sandhu MD Unavailable [phone] Reason for Visit * Reason Comments Med Refill Encounter Details Date Type Department Care Team (Late st Contact Info) Description 04/04/2023 Refill [facility] [address] [place] [phone] Lasha Marrufo MD [address] [place] [phone] Social History Tobacco Use Types Packs/Day Years [...] Description 12/10/2024 1:15 PM EDT Office Visit [facility] [address] [place] [address] [phone] Lasha Marrufo MD [address] [place] [phone] 01/28/2025 3:00 PM EDT Office Visit [facility] [address] [place] [phone] Lasha Marrufo MD [address] [place] [address] documented as of this encounter Visit Diagnoses Not on filedocumented in this encounter Care Teams Gusset Folder Relationship Specialty Start Date End Date Lasha Marrufo MD [address] [place] [address] PCP - General Internal Medicine 12/25/13 Farzad Sandhu MD [address] [place] [address] Cardiology 11/08/24 documented as of this encounter
--- OUTSIDE RECORDS SUMMARY | 2024-11-26 12:07 | XMS_ITS | Clinical Summary ---
Author Organization [employer] Address [address] [place] [address] [address] [place] [address] Care Team Providers Care Senior Systems Administrator Name Role Phone Lasha Marrufo MD Primary Care Provide r Farzad Sandhu MD Unavailable [phone] Allergies Active Allergy Reactions Criticality Noted Date [...] 3 023 Active Blood Glucose Monitoring Suppl (FutureAdvisor Blood Glucose) w/Device kitIndications:T ype 2 diabetes mellitus without complication, without long-term current use of insulin ([facility]) 1 kit 2 times daily. 1 kit 023 Active glucose blood test stripIndications :Type 2 diabetes mellitus without complication, without long-term current use of insulin ([facility]) 1 each by Other route 2 times [...] 1 CAPSULE BY MOUTH EVERYDAY AT NOON Active rosuvastatin (Crestor) 40 MG tablet Take [...] ATERIAL ES ALTO) Active TRUEplus Lancets 33G [facility] [place] BLOOD SUGAR TWICE DAILY Active magnesium oxide (Mag-Ox) 400 (240 Mg) MG tablet Take 400 mg by mouth in the morning. Active trospium (Sanctura) 20 MG tablet TAKE 1 TABLET BY MOUTH EVERY DAY TOMELA ALGUNAS HORAS ANTES DE DORMIR Active Simethicone Ultra Strength 180 MG capsule [...] FOR MUSCLE SPASMS 30 tablet 025 Active metFORMIN XR (Glucophage-XR) 500 MG 24 hr tablet TAKE 2 TABLETS BY MOUTH TWICE DAILY IN THE MORNING AND EVENING 360 tablet 1 025 Active DULoxetine (Cymbalta) [address] capsule TAKE 1 CAPSULE BY MOUTH EVERY MORNING 30 capsule 5 025 Active metroNIDAZOLE (Metrogel) 0.75 % vaginal gel One applicatorful nightly x 5 nights 70 g 025 Active ipratropium-albu terol (Duo-Neb) 0.5-2.5 mg/3 mL nebulizer solution INHALE 1 AMPULE USING A NEBULIZER FOUR TIMES DAILY NEEDED FOR WHEEZING AND FOR COUGH 90 mL 3 025 Active montelukast (Singulair) 10 MG tabletIndication s:Mild intermittent asthma without complication TAKE 1 TABLET BY MOUTH EVERY EVENING 90 tablet 1 025 Active levothyroxine (Synthroid, Levoxyl) 75 MCG tabletIndication s:Acquired hypothyroidism Take 1 tablet (75 mcg) by mouth in the morning. 90 tablet 1 025 Active montelukast (Singulair) 10 MG tabletIndication s:Mild intermittent asthma without complication TAKE 1 TABLET BY MOUTH EVERY EVENING 90 tablet 1 025 Active levothyroxine (Synthroid, Levoxyl) 75 MCG tabletIndication s:Acquired hypothyroidism Take 1 tablet (75 mcg) by mouth in the morning. 90 tablet 1 025 Active butalbital-aceta minophen-caffein e 50-325-40 MG tabletIndication s:Acute non intractable tension-type headache TAKE 1 TABLET BY MOUTH ONCE DAILY AT ONSET OF HEADACHE, MAY REPEAT IN 12 HOURS NEEDED 20 tablet 025 Active apixaban (Eliquis) 5 MG tablet Take 1 tablet (5 mg) by mouth 2 times daily. 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 (CMS/HCC) INJECT ONE PEN (=0.75MG) SUBCUTANEOUSLY ONCE A WEEK DIRECTED 2 mL 1 025 Active levothyroxine (Synthroid, Levoxyl) 75 MCG tabletIndication s:Acquired hypothyroidism TAKE 1 TABLET BY MOUTH EVERY MORNING 90 tablet 1 025 2024 Discontinued(R eorder (will not trigger notification to Pharmacy)) montelukast (Singulair) 10 MG tabletIndication s:Mild intermittent asthma without complication TAKE 1 TABLET BY MOUTH EVERY EVENING 90 tablet 1 025 2024 Discontinued(R eorder (will not trigger notification to Pharmacy)) butalbital-aceta minophen-caffein e 50-325-40 MG tabletIndication s:Acute non intractable tension-type headache TAKE 1 TABLET BY MOUTH ONCE DAILY AT ONSET OF HEADACHE MAY REPEAT IN 12 HOURS NEEDED 20 tablet 025 2024 Discontinued Trulicity 0.75 MG/0.5ML solution auto-injectorInd ications:Type 2 diabetes mellitus without complication, unspecified whether retirement insulin use ([facility]) INJECT ONE PEN (=0.75MG) SUBCUTANEOUSLY ONCE A WEEK DIRECTED 2 mL 1 025 2024 Discontinued Active Problems Problem Noted Date Diagnosed Date Atrial fibrillation 11/06/2024 Assessment & Plan (11/06/2024 6:47 PM EDT): Chadvasc 3 points Rate controlled, asymptomatic Start eliquis risk vs benefits discussed, told to discuss with guest history clerk if watchman is indicated Pelvic pain 09/05/2024 Assessment & Plan (09/05/2024 2:34 PM EDT): Patient with c/o pelvic pain and recurrent Bacterial vaginosis. Pt requesting to see a Bottle Blowing Machine Tender Plan: Obtain Pelvic US Referral to PRODUCTION REPRODUCTION MANAGER Heart murmur 09/05/2024 Assessment & Plan (09/05/2024 3:46 PM EDT): Obtain ECHO Right knee pain 04/18/2024 Preventative health care 07/18/2023 Assessment & Plan (10/12/2023 11:21 AM EDT): Mammogram: 08/2023 Normal Pap Smear: NL 09/2021 will need a repeat [id number] Colonoscopy: 06/2019 Dr Delgado, Tubular adenoma Vaccines: Td Pt claims she had one in [place] in 2013. Assessment & Plan (07/18/2023 1:58 PM EDT): Mammogram: 04/12/2023 Normal Pap Smear: NL 09/2021 will need a repeat [id number] Colonoscopy: 06/2019 Dr Delgado, Tubular adenoma Vaccines: Flu shot Td Pt claims she had one in [place] in 2013. Abdominal wall hernia 07/18/2023 Assessment [...] abdomen Oropharyngeal dysphagia 07/18/2023 Assessment & Plan (09/05/2024 2:23 PM EDT): Pt c/o this for close [...] gastritis. Patient was referred back to Dr. Delgado GI for EGD. Seen in March EGD showed: FINDINGS: 1. Esophagus: The esophagus was normal. Biopsies were obtained from the EG junction. 2. Stomach: The stomach was normal. Biopsies were obtained from the antrum. 3. Duodenum: The bulb and 2nd portion were normal. Biopsies were obtained from the 2nd portion. IMPRESSION: Normal upper endoscopy. Patient was referred ENT evaluation ( smoker ). She was seen 11/03/2023 laryngoscopy was normal Assessment & Plan (02/13/2024 11:44 AM EST): [...] 11:40 AM EST): Under the care of Manufacturing Quality Manager Unfortunately continues to smoke, not interested in quitting Discussed with her the risk of smoking Obstructive sleep apnea syndrome 09/28/2022 Tubular adenoma of colon 09/28/2022 Assessment & Plan (07/18/2023 1:55 PM EDT): Pt underwent a Colonoscopy by Dr Delgado june 2019 that showed a Tubular adenoma, will need a repeat in 2024 Type 2 diabetes mellitus without complication Assessment & Plan (09/05/2024 2:38 PM EDT): Pt here for a f/u regarding her Diabetes DM controlled Hgb A1c 09/05/2024: 6 from: 6.2 Pt is currently on Metformin XR 500 mg 2 tabs po BID and Trulicity 0.75 q week Eye exam : 05/31/2024 [facility] Microalbumin ordered Pt on an LEXII inhibitor/ARB Foot check risk if zero On Asa 81 mg po daily Plan: Continue current regimen Pt advised to: adhere to diabetic diet check your blood sugars regularly check your feet on a daily basis. f/u with me in 3 months Assessment & Plan (02/13/2024 11:45 AM EST): [...] syndrome 08/28/2014 Hypertriglyceridemia 01/17/2014 Assessment & Plan (09/05/2024 2:28 PM EDT): Here for a f/u Patient [...] with a personal goal for weight loss. Repeat Lipid profile Assessment & Plan (10/12/2023 9:31 AM EDT): [...] Pt asymptomatic Hypertension 09/23/2013 Assessment & Plan (09/05/2024 2:28 PM EDT): Patient here for a f/u BP currently controlled on a regimen of: Lasix 20mg po daily, Losartan 100 mg po BID, Toprol XL 100 mg po daily, Verapamil 300 mg po qhs and Hydralazine 50 mg po TID Norvasc was dced due to leg edema Most recent electrolytes, Bun and Creatinine done on: Lab Results Component Value Date NA 141 08/24/2023 NA 140 06/29/2022 K 4.3 08/24/2023 K 4.0 06/29/2022 CL 105 08/24/2023 CL 105 06/29/2022 BUN 10 08/24/2023 BUN 13 06/29/2022 CREATININE 0.8 10/03/2023 CREATININE 0.62 08/24/2023 were within normal limits. Plan: continue current regimen. Repeat BMP patient advised to adhere to a low sodium diet, encouraged about medication compliance, counseled about weight loss. Assessment & Plan (02/13/2024 11:38 AM EST): [...] Encounters Date Type Department Care Team Description 11/25/2024 Telephone [facility] [address] [place] [address] Nancy Frye RN ER Follow-up 11/20/2024 Telephone [facility] [address] [place] [address] Lasha Marrufo MD Care Coordination 11/20/2024 Orders Only GENERIC EXTERNAL DATA DEPARTMENT Provider, Generic External Data 11/20/2024 Travel 11/19/2024 Telephone [facility] [address] [facility] [place] [address] Lasha Marrufo MD Results 11/19/2024 Telephone [facility] [address] [place] [address] Lasha Marrufo MD Nurse Triage 11/18/2024 [facility]ill [facility] [address] [facility] [place] [address] Lasha Marrufo MD Type 2 diabetes mellitus without complication, unspecified whether retirement insulin use (CMS/HCC) 11/11/2024 Travel 11/08/2024 Results Follow-Up [facility] [address] [place] [address] Nancy Frye, RN ECG 12 lead 11/06/2024 6:20 PM EDT Office Visit [facility] [address] [place] [address] Humza Morfin MD Longstanding persistent atrial fibrillation (CMS/HCC) (Primary Dx) 11/06/2024 Travel 11/06/2024 Telephone [facility] [address] [place] [address] Nancy Frye, RN Results 11/01/2024 Refill [facility] [address] [facility] [place] [address] Lasha Marrufo MD Acute non intractable tension-type headache 10/31/2024 Results Follow-Up [facility] [address] [facility] [place] [address] Lasha Marrufo MD SANDEEP Screen,IFA, with Reflex to Titer and Pattern 10/29/2024 Orders Only [facility] [address] [facility] [place] [address] Lasha Marrufo MD Type 2 diabetes mellitus without complication, without long-term current use of insulin (CMS/[facility]) (Primary Dx) 10/29/2024 Refill [facility] [address] [facility] [place] [address] Lasha Marrufo MD Mild intermittent asthma without complication; Acquired hypothyroidism 10/28/2024 Refill [facility] [address] [facility] [place] [address] Lasha Marrufo MD Acquired hypothyroidism; Mild intermittent asthma without complication 10/28/2024 Refill [facility] [address] [facility] [address] Lasha Marrufo MD Mild intermittent asthma without complication; Acquired hypothyroidism 10/27/2024 Refill [facility] [address] [place] [phone] Lasha Marrufo MD Acquired hypothyroidism; Mild intermittent asthma without complication 10/21/2024 Telephone [facility] [address] [place] [address] Lasha Marrufo MD Referral 10/08/2024 Refill [facility] [address] [place] [phone] Lasha Marrufo MD 10/03/2024 Orders Only GENERIC EXTERNAL DATA DEPARTMENT Provider, Generic External Data 09/24/2024 Refill [facility] [address] [place], [place] [phone] Name, MD Meliotn Type 2 diabetes mellitus without complication, unspecified whether retirement insulin use (CMS/[facility]) 09/18/2024 Orders Only [facility] [address] [place] [phone] Lasha Marrufo MD Pelvic pain (Primary Dx) 09/12/2024 Telephone [facility] [address] [place] [address] Lasha Marrufo MD 09/11/2024 Orders Only [address] [address] Lasha Marrufo MD Positive SANDEEP (antinuclear antibody) (Primary Dx) 09/11/2024 Telephone [facility] [address] [place] [address] Lasha Marrufo MD US PELVIS ORDER 09/05/2024 2:15 PM EDT Office Visit [facility] [address] [place] [address] [phone] Lasha Marrufo MD Oropharyngeal dysphagia (Primary Dx); Type 2 diabetes mellitus without complication, without long-term current use of insulin (CMS/[facility]); Primary hypertension; Hypertriglyceridemia; Preventative health care; Pelvic pain; Positive SANDEEP (antinuclear antibody); Arthralgia, unspecified joint; Heart murmur 09/05/2024 Travel 09/04/2024 Telephone [facility] [address] [place] [address] Lasha Marrufo MD chart prep 09/03/2024 Refill [facility] [address] [facility], [place] [phone] Halie Samuel MD Acute non intractable tension-type headache 08/30/2024 Refill [facility] [address] [place] [address] Lasha Marrufo MD from Last 3 Months Immunizations Immunization Administration [...] Answer Date Recorded Patient Health Questionnaire-9 Score 9 09/05/2024 Patient Health Questionnaire-9 Score 9 09/05/2024 Last PHQ-9: Questionnaire Data Not on file 0 09/05/2024 Housing Stability Answer Date Recorded What is your housing situation today? I have ara sing 07/18/[address] you li [...] Answer Date Recorded Patient Health Questionnaire-2 Score 4 09/05/2024 Internet Access Answer Date Recorded Internet Access [...] Sign Reading Time Taken Comments Blood Pressure 130/74 11/06/2024 6:16 PM EDT Pulse 82 11/06/2024 6:16 PM EDT Temperature 36.4 C (97.6 F) 11/06/2024 6:16 PM EDT Respiratory Rate 20 11/06/2024 6:16 PM EDT Oxygen Saturation 98% 11/06/2024 6:16 PM EDT Inhaled Oxygen Concentration - - Weight 101 kg (223 lb) 11/06/2024 6:16 PM EDT Height 167.6 cm (5' 6 ) 11/06/2024 6:16 PM EDT Body Mass Index 35.99 11/06/2024 6:16 PM EDT Plan of Treatment Upcoming Encounters Date Type Department Care Team (Late st Contact Info) Description 12/10/2024 1:15 PM EDT Office Visit [facility] [address] [place] [address] Lasha Marrufo MD [address] [facility] [address] 01/28/2025 3:00 PM EDT Office Visit [facility] [address] [place] [address] Lasha Marrufo MD [address] [place] [address] Health Maintenance Due Date Last Done Comments CT Colonography 1960 Dental Prophylaxis 1960 FIT DNA/Cologuard 1960 FIT 1960 FOBT 1960 Sigmoidoscopy 1960 Diabetes: Foot Exam 1971 [...] Colonoscopy 06/25/2024 06/26/2019 Colorectal Cancer Screening 06/25/2024 Eye Exam 09/09/2024 09/09/2022, 0612/2022, 09/09/2022, Additional history exists Influenza Vaccine (#1) 2024 , 02/15/2022, 01/15/2020, Additional history exists Alcohol/Substance Use Screening 02/12/2025 02/13/2024 Disability Screening 02/12/2025 02/13/2024 SDOH Screening 02/12/2025 02/13/2024 Depression Monitoring 03/07/2025 09/05/2024, 025 Diabetes: Hemoglobin A1C 03/07/2025 025, 02/13/2024, 07/18/2023, Additional history exists Mammogram 08/29/2025 08/29/2024, 08/02, 04/12/2023, Additional history exists Tobacco Screening 09/05/2025 09/05/2024 Lipid Panel 10/23/2025 10/23/2024, 08/02, 06/29/2022, Additional history exists Dental X-Ray: Full Mouth 10/10/2026 10/10/2023, 02/02 DTaP/Tdap/Td Vaccines (2 - Td or Tdap) 05/23/2027 05/23/2017 Cervical Cancer Screening 10/03/2029 HPV/Cotest 10/03/2029 10/03/2024, 09/27/2021 Pap Smear 10/03/2029 10/03/2024, 09/27/2021 Hepatitis C Screening Completed 06/29/2022 HIV Screening Completed 10/23/2024 HIB Vaccines Aged Out No longer eligi [...] Procedure Name Priority Date/Time Associated Diagnosis Comments SARS COV2/INFLUENZA A/B AND RSV RNA QL NAAT Routine 11/20/2024 12:44 PM EDT STREP A NUCLEIC ACID Routine 11/20/2024 12:44 PM EDT XR CHEST 2 VIEWS Routine 11/20/2024 11:0 8 AM EDT US PELVIS TRANSVAGINAL Routine 11/08/2024 4:45 PM EDT ECG 12-LEAD Routine 11/06/2024 6:48 PM EDT Longstanding persistent atrial fibrillation (CMS/HCC) SANDEEP SCREEN, IFA, W/REFL TITER AND PATTERN Routine 10/23/2024 10:11 AM EDT Positive SANDEEP (antinuclear antibody) CBC WITH AUTO DIFFERENTIAL Routine 10/23/2024 10:11 AM EDT Type 2 diabetes mellitus without complication, without long-term current use of insulin (CMS/HCC) HIV 1/2 ANTIGEN/ANTIBODY, FOURTH GENERATION W/RFL Routine 10/23/2024 10:11 AM EDT Preventative health care COMPREHENSIVE METABOLIC PANEL Routine 10/23/2024 10:11 AM EDT Type 2 diabetes mellitus without complication, without long-term current use of insulin (CMS/HCC) LIPID PANEL, STANDARD Routine 10/23/2024 10:11 AM EDT Type 2 diabetes mellitus without complication, without long-term current use of insulin (CMS/HCC) Primary hypertension Hypertriglyceridemia US ABDOMEN COMPLETE Routine 10/23/2024 8 :35 AM EDT PAP SMEAR Routine 10/03/2024 3:17 PM EDT HPV DNA, LOW/HIGH RISK Routine 10/03/2024 3:17 PM EDT CHLAMYDIA/N. GONORRHOEAE RNA, TMA, UROGENITAL Routine 10/03/2024 2:44 PM EDT POCT GLYCATED HEMOGLOBIN, TOTAL Routine 09/05/2024 2:30 PM EDT Type 2 diabetes mellitus without complication, without long-term current use of insulin (CMS/HCC) POCT GLUCOSE Routine 09/05/2024 2:25 PM EDT Type 2 diabetes mellitus without complication, without long-term current use of insulin (CMS/HCC) BI MAMMOGRAM SCREENING TOMOSYNTHESIS BILATERAL Routine 08/29/2024 10:50 AM EDT PANORAMIC RADIOGRAPHIC IMAGE Routine 10/10/2023 11:00 AM EDT Encounter for dental examination Edentulism PERIODIC ORAL EVALUATION - ESTABLISHED PATIENT Routine 10/10/2023 11:00 AM EDT Encounter for dental examination Edentulism ALBUMIN, RANDOM URINE W/CREATININE Routine 06/29/2022 12:01 PM EDT HEPATITIS C AB W/REFL TO HCV RNA, QN, PCR Routine 06/29/2022 9:03 AM EDT HM COLONOSCOPY Routine 06/26/2019 INTRAORAL - COMPLETE SERIES OF RADIOGRAPHIC IMAGES Routine 02/25/2014 12:00 AM EST from Last 3 Months or Most Recently Relevant to Health Maintenance Results * Strep A Nucleic Acid (11/20/2024 12:44 PM EDT) IDNOW SERIAL# [id number] [facility] Strep A Nucleic Acid Negative Negative [facility] Comment:All test results mus t be correlated with clinical findings.This test has not been evaluated for monitoring treatment ofinfection.Additional follow-up testing using the culture method isrequired if the result is negative and clinical symptomspersist, or in the event of an acute rheumatic feveroutbreak. 11/20/2024 12:4 4 PM EDT 11/20/2024 12:50 PM EDT us Generic External Data Provider LAB MICROBIOLOGY - GENERAL ORDERABLES Final Result [facility] [address] [place] [phone] * SARS-CoV-2 RNA, Influenza A/B, and RSV RNA, Ql NAAT (11/20/2024 12:44 PM EDT) Influenza A PCR NEGATIVE Negative [facility] Influenza B PCR NEGATIVE Negative [facility] Resp Syncy Virus RNA Qual PCR NEGATIVE Negative [facility] SARS COV2 PCR NEGATIVE Negative [facility] Comment:All test results mus t be correlated with clinical findings.Negative results do not preclude SARS-CoV2, influenza Avirus, influenza B virus and/or RSV infectionand should not be used as the sole basis for treatment orother patient management decisions. Negative results must becombined with clinical observations, patient history, andepidemiological information.This test has not been evaluated for monitoring treatment ofinfection.This test has been authorized by the FDA under an EmergencyUse Authorization (EUA) for use by authorized laboratories.Testing performed on the [facility] GeneXpert utilizingreal-time RT-PCR.All SARS CoV2 and positive influenza A/B results arereported to [facility]. 11/20/2024 12:4 4 PM EDT 11/20/2024 12:50 PM EDT Generic External Data Provider LAB MICROBIOLOGY - GENERAL ORDERABLES Final Result Performing Organization Address City/State/[facility] Co de Phone Number [facility] [address] [place] [phone] * XR Chest 2 Views (11/20/2024 11:08 AM EDT) Anatomical Region Laterality Modality Chest Radiographic Melody ging 11/20/2024 11:0 8 AM EDT Narrative 11/20/2024 12:16 PM EDT [address] [address] XRay Report Signed Patient: Arianna Pineda MR#: [id number] : 1960 Acct:[id number] Age/Sex: 64 / F ADM Date: 11/20/24 Loc: HO.ED Attending Dr: Ordering Physician: Alberto Henderson Date of Service: 11/20/24 Procedure(s): XR chest 2V Accession Number(s): [id number] cc: Lasha Castillo MD; Alberto Henderson EXAMINATION: XR CHEST CLINICAL INFORMATION: pain COMPARISON: October 12, 2023 TECHNIQUE: 2 views of the chest were obtained. FINDINGS: There is moderate globular enlargement of the cardiac silhouette. There is atherosclerotic calcification in the aortic arch. There is new small focal opacity in the right midlung zone just cephalad to the minor fissure. There is minimal linear subsegmental atelectasis in the mid third left lung zone. XR/XR chest 2V IMPRESSION: Stable focal opacity in the right mid third lung zone abutting minor fissure could represent pneumonia or atelectasis. Cardiomegaly. Electronically signed by: Daryl Maxwell MD 11/20/2024 12:13 PM EDT RP Dictated By: Daryl Maxwell MD Signed By: <Electronically signed by Daryl Maxwell MD in OV> 11/20/24 1213 DD/ 1108 TD/TT: 11/20/24 1206 Residential Finish Carpenter: Procedure Note Donotuseinterpreter, Image - 11/20/[address] [address] XRay Report Signed Patient: Arianna Pineda EMR#: [id number] : 1960cct:[id number] Age/Sex: 64 / FADM Date: 11/20/24 Loc: .ED Attending Dr: Ordering Physician: Alberto Henderson Date of Service: 11/20/24 Procedure(s): XR chest 2V Accession Number(s): [id number] cc: Lasha Castillo MD; Alberto Henderson EXAMINATION: XR CHEST CLINICAL INFORMATION: pain COMPARISON: October 12, 2023 TECHNIQUE: 2 views of the chest were obtained. FINDINGS: There is moderate globular enlargement of the cardiac silhouette. There is atherosclerotic calcification in the aortic arch. There is new small focal opacity in the right midlung zone just cephalad to the minor fissure. There is minimal linear subsegmental atelectasis in the mid third left lung zone. XR/XR chest 2V IMPRESSION: Stable focal opacity in the right mid third lung zone abutting minor fissure could represent pneumonia or atelectasis. Cardiomegaly. Electronically signed by: Daryl Maxwell MD 11/20/2024 12:13 PM EDT RP Dictated By: Daryl Maxwell MD Signed By: <Electronically signed by Daryl Maxwell MD in OV> 11/20/24 1213 DD/ 1108 TD/TT: 11/20/24 1206 Residential Finish Carpenter: us [facility] External Provider IMG XR PROCEDURES Final Result * US Pelvis Transvaginal (11/08/2024 4:45 PM EDT) Anatomical Region Laterality Modality Pelvis Ultrasound 11/08/2024 4:45 PM EDT Narrative 11/08/2024 4:46 PM EDT [place] [address] Ultrasound Report Signed Patient: Arianna Pineda MR#: [id number] : 1960 Acct:[id number] Age/Sex: 64 / F ADM Date: 11/08/24 Loc: HO.US Attending Dr: Sanjay Ochoa MD Ordering Physician: Sanjay Ochoa MD Date of Service: 11/08/24 Procedure(s): US pelvic and transvaginal Accession Number(s): [id number] cc: Lasha Castillo MD; Sanjay Ochoa MD CLINICAL HISTORY: R10.2 - Pelvic and perineal pain US pelvis transabdominal and transvaginal Comparison: None provided Findings: Transabdominal scanning performed for overall anatomy. Transvaginal scanning performed for additional detail. Anteverted uterus is 6.9 cm length. Normal myometrium. Endometrium 4 mm thickness. No lesions. Right ovary 2.5 x 1.4 x 1.1 cm. Left ovary 1.6 x 1.4 x 1.1 cm. No free fluid. IMPRESSION: 1. Normal pelvic ultrasound This document has been electronically signed by: Emanuel Patterson MD on 11/08/2024 16:45:34 Dictated By: Emanuel Patterson MD Signed By: <Electronically signed by Emanuel Patterson MD in OV> 11/08/241645 DD/ 44 TD/TT: 11/08/241644 Residential Finish Carpenter: Procedure Note Dustinter, Image - 11/08/2024 [place] [address] Ultrasound Report Signed Patient: Arianna Pineda EMR#: [id number] : 1960cct:[id number] Age/Sex: 64 / FADM Date: 11/08/24 Loc: HO.US Attending Dr: Sanjay Ochoa MD Ordering Physician: Sanjay Ochoa MD Date of Service: 11/08/24 Procedure(s): US pelvic and transvaginal Accession Number(s): [id number] cc: Lasha Castillo MD; Sanjay Ochoa MD CLINICAL HISTORY: R10.2 - Pelvic and perineal pain US pelvis transabdominal and transvaginal Comparison: None provided Findings: Transabdominal scanning performed for overall anatomy. Transvaginal scanning performed for additional detail. Anteverted uterus is 6.9 cm length. Normal myometrium. Endometrium 4 mm thickness. No lesions. Right ovary 2.5 x 1.4 x 1.1 cm. Left ovary 1.6 x 1.4 x 1.1 cm. No free fluid. IMPRESSION: 1. Normal pelvic ultrasound This document has been electronically signed by: Emanuel Patterson MD on 11/08/2024 16:45:34 Dictated By: Emanuel Patterson MD Signed By: <Electronically signed by Emanuel Patterson MD in OV> 11/08/241645 DD/ 44 TD/TT: 11/08/241644 Residential Finish Carpenter: us [facility] External Provider IMG US PROCEDURES Final Result * ECG 12 lead (11/06/2024 6:48 PM EDT) Narrative Humza Morfin MD - 11/06/2024 6:48 PM EDT Atrial fibrillation Heat rate 80 Qtc 471 Humza Loza MD ECG ORDERABLES Fi nal Result * (ABNORMAL) CBC auto differential (10/23/2024 10:11 AM EDT) White Blood Count 7.8 4.8 - 10.8 X10*3/uL [facility] Red Blood Count 4.57 4.20 - 5.50 X10*6/uL [facility] Hemoglobin 11.9(L) 12.0 - 16.0 g/dl [facility] Hematocrit 38.6 37.0 - 47.0 % [facility] Mean Corpuscular Volume 84.5 80.0 - 98.0 fL [facility] Mean Corpuscular Hemoglobin 26.0(L) 27.0 - 33.0 pg [facility] Mean Corpuscular HGB Conc 30.8(L) 31.0 - 35.0 g/dl [facility] Red Cell Distribution Width 15.6 11.0 - 16.0 % [facility] Platelet Count 199 160 - 400 X10*3/uL [facility] Mean Platelet Volume 9.6 9.4 - 12.3 fL [facility] Neutrophils Percent Auto 58.7 45 - 73 % [facility] Imm Gran Pct Auto 0.5(H) 0.0 - 0.4 % [facility] Lymphocytes Percent Auto 32.6 20 - 40 % [facility] Monocytes Percent Auto 4.5 2 - 11 % [facility] Eosinophils Percent Auto 3.1 0 - 4 % [facility] Basophils Percent Auto 0.6 0 - 2 % [facility] NRBC Pct Auto 0.0 0.0 - 0.2 /100WBC [facility] Neutrophils Absolute Auto 4.6 2.0 - 8.3 x10*3/uL [facility] Imm Gran Abs Auto 0.04(H) 0.00 - 0.03 X10*3/uL [facility] Lymphocytes Absolute Auto 2.5 1.2 - 4.9 X10*3/uL [facility] Monocytes Absolute Auto 0.4 0.1 - 1.2 X10*3/uL [facility] Eosinophils Absolute Auto 0.2 0.0 - 0.4 X10*3/uL [facility] Basophils Absolute Auto 0.1 0.0 - 0.2 X10*3/uL [facility] NRBC Abs Auto 0.000 0.0 - 0.012 X10*3/uL [facility] Blood Venous blood specimen / Unknown 10/23/2024 10:11 AM EDT 10/23/2024 10:11 AM EDT us Lasha Jara MD LAB BLOOD ORDERABLES Final Result [facility] [address] [place] [phone] * HIV-1/2 Antigen and Antibodies, Fourth Generation, with Reflexes (10/23/2024 10:11 AM EDT) [facility] HIV AB/AG Nonreactive Nonreactive [facility] Comment:HIV-1 p24 Ag and/or HIV-1/HIV-2 Ab not detected.A test result that is nonreactive does not exclude thepossibility of exposure to or infection with HIV-1 and/orHIV-2. Nonreactive results in this assay for individualswith prior exposure to HIV-1 and/or HIV-2 may be due toantigen and antibody levels that are below the limit ofdetection of this assay.[facility] HIV Ag/Ab Combo assay result andsupplemental assay results should be interpreted inconjunction with the patient's clinical presentation,history and other laboratory results. If the results areinconsistent with clinical evidence, additional testing issuggested to confirm the result. Blood Venous blood specimen / Unknown 10/23/2024 10:11 AM EDT 10/23/2024 10:11 AM EDT us Lasha Jara MD LAB BLOOD ORDERABLES Final Result [facility] [address] [place] [address] [phone] * (ABNORMAL) SANDEEP Screen,IFA, with Reflex to Titer and Pattern (10/23/2024 10:11 AM EDT) Anti Nuclear Antibody Screen POSITIV E(A) NEGATIVE [facility] Comment:SANDEEP IFA is a first l ine screen for detecting thepresence of up to approximately 150 autoantibodies invarious autoimmune diseases. A positive SANDEEP IFA resultis suggestive of autoimmune disease and reflexes totiter and pattern. Further laboratory testing may beconsidered if clinically indicated.For additional information, please refer tohttp://education.Baojia.com/faq/FQX771(This link is being provided for informational/educational purposes only.) SANDEEP Titer 1:1280( A) titer [facility] Comment:Reference Range <1:4 0 Negative 1:40-1:80 Low Antibody Level >1:80 Elevated Antibody Level SANDEEP Pattern Nuclear , Nucleol ar(A) [facility] Comment:Nucleolar pattern is associated with systemic sclerosis(scleroderma), systemic sclerosis/polymyositis overlapand Sjogren's syndrome.AC-8,9,10: NucleolarInternational Consensus on SANDEEP Patterns(https://doi.org/10.1515/rgyf-3181-1803) SANDEEP TITER 2 (REF LAB) 1:320(A ) titer [facility] Comment:Reference Range <1:4 0 Negative 1:40-1:80 Low Antibody Level >1:80 Elevated Antibody Level SANDEEP Pattern 2 Nuclear , Homogen eous(A) [facility] Comment:Homogeneous pattern is associated with systemic lupuserythematosus (SLE), drug-induced lupus and juvenileidiopathic arthritis.AC-1: HomogeneousInternational Consensus on SANDEEP Patterns(https://doi.org/10.1515/xmpz-2001-1494)THIS TEST WAS PERFORMED AT:[employer] [place] [phone] PAUL LEWIS MD SANDEEP TITER 3 TNP [facility] SANDEEP PATTERN 3 TNP [facility] Blood Venous blood specimen / Unknown 10/23/2024 10:11 AM EDT 10/23/2024 10:11 AM EDT Lasha Jara MD LAB BLOOD ORDERABLES Final Result Performing Organization Address City/[facility]/ZIP Co de Phone Number [facility] [address] [place] [phone] * (ABNORMAL) Lipid Panel, Standard (10/23/2024 10:11 AM EDT) Triglycerides 147 <150 mg/dL [facility] Comment:Desirable Triglyceri de: less than 150 mg/dLBorderline High Triglyceride 150-199 mg/dLHigh Triglyceride: 200-499 mg/dLVery High Triglyceride: greater than or equal to 5OO mg/dL Cholesterol 116 <200 mg/dL [facility] Comment:Desirable Cholestero l: less than 200 mg/dLBorderline High Cholesterol: 200-239 mg/dLHigh Cholesterol: greater than 239 mg/dL LDL Cholesterol Calculated 54 <100 mg/dL [facility] Comment:Desirable LDL: less than 100 mg/dLNear Optimal/Above Optimal LDL: 110- 129 mg/dLBorderline High LDL: 130-159 mg/dLHigh LDL: 160-189 mg/dLVery High LDL: greater than or equal to 190 mg/dL HDL Cholesterol 33(L) >40 mg/dL [facility] Comment:Desirable HDL: great er than 40 mg/dL Note: This HDL assay may give artificially low results in patients with liver disease. Blood Venous blood specimen / Unknown 10/23/2024 10:11 AM EDT 10/23/2024 10:11 AM EDT Lasha Jara MD LAB BLOOD ORDERABLES Final Result [facility] [address] [place] [phone] * (ABNORMAL) Comprehensive Metabolic Panel (10/23/2024 10:11 AM EDT) Sodium 143 135 - 145 mmol/L [facility] Potassium 3.9 3.3 - 5.1 mmol/L [facility] Chloride 111(H) 96 - 108 mmol/L [facility] Carbon Dioxide 26 22 - 29 mmol/L [facility] Anion Gap 10(L) 12 - 20 [facility] Urea Nitrogen (BUN) 12 9 - 16 mg/dL [facility] Creatinine, Serum 0.68 0.5 - 1.4 mg/dL [facility] Estimated Glomerular Filt Rate >60 [facility] Comment:Chronic Kidney Disea se: Estimated GFR < 60 mL/min/1.50e3Cgwyjt Kidney Disease: Estimated GFR < 15 mL/min/1.73m2 Glucose 86 60 - 115 mg/dL [facility] Calcium 9.2 8.4 - 10.2 mg/dL [facility] Bilirubin, Total 0.2 0.0 - 1.0 mg/dL [facility] Aspartate Amino Transferase 24 5 - 31 U/L [facility] Alanine Aminotransferase 23 0 - 31 U/L [facility] Total Protein 7.9 6.5 - 8.0 g/dL [facility] Albumin Level 4.3 3.5 - 5.0 g/dL [facility] Alkaline Phosphatase 129(H) 39 - 117 U/L [facility] Blood Venous blood specimen / Unknown 10/23/2024 10:11 AM EDT 10/23/2024 10:11 AM EDT us Lasha Jara MD LAB BLOOD ORDERABLES Final Result [facility] [address] [place] [phone] * US Abdomen Complete (10/23/2024 8:35 AM EDT) Anatomical Region Laterality Modality Abdomen Ultrasound 10/23/2024 8:35 AM EDT Narrative 10/23/2024 9:45 AM EDT [address] [address] Ultrasound Report Signed Patient: Arianna Pineda MR#: [id number] : 1960 Acct:[id number] Age/Sex: 64 / F ADM Date: 10/23/24 Loc: HO.US Attending Dr: Medardo Delgado MD Ordering Physician: Medardo Delgado MD Date of Service: 10/23/24 Procedure(s): US abdomen complete Accession Number(s): [id number] cc: Medardo Delgado MD; Lasha Castillo MD [...] Nikunj Zarate MD 10/23/2024 09:43 AM EDT RP Dictated By: Nikunj Zarate MD Signed By: <Electronically signed by Nikunj Zarate MD in OV> 10/23/24 0943 DD/ TD/TT: 10/23/24 0917 Residential Finish Carpenter: Procedure Note Donotuseinterpreter, Image - 10/23/[address] [address] Ultrasound Report Signed Patient: Arianna Pineda EMR#: [id number] : 1960cct:[id number] Age/Sex: 64 / FADM Date: 10/23/24 Loc: HO.US Attending Dr: Medardo Delgado MD Ordering Physician: Medardo Delgado MD Date of Service: 10/23/24 Procedure(s): US abdomen complete Accession Number(s): [id number] cc: Medardo Delgado MD; Lasha Castillo MD [...] Nikunj Zarate MD 10/23/2024 09:43 AM EDT RP Dictated By: Nikunj Zarate MD Signed By: <Electronically signed by Nikunj Zarate MD in OV> 10/23/24 0943 DD/ TD/TT: 10/23/24916 Residential Finish Carpenter: [facility] External Provider IMG US PROCEDURES Final Result * HPV DNA, Low/High Risk (10/03/2024 3:17 PM EDT) HPV High Risk Negative Negative [facility] HPV Genotype 16 Negative Negative [facility] HPV Genotype 18 Negative Negative [facility] Comment:HPV testing performe d at [facility] (CLIA#[id number]), [address] [place] [address].Testing for HPV was performed using the Marcella JUANJO 6800system. The presence of HPV in the female genital tract isassociated with a number of diseases, including cervicalcarcinoma. The HPV DNA high risk pool tests for HPV 31, 33,35, 39, 45, 51, 52, 56, 58, 59, 66 and 68. The testing forHPV 16 and 18 genotypes has also been performed. A positiveresult indicates detection of nucleic acid sequences fromone or more subtypes, whereas a negative result indicatessuch sequences were not detected. 10/03/2024 3:17 PM EDT 10/07/2024 7:55 AM EDT Generic External Data Provider LAB BLOOD ORDERAB LES Final Result [facility] [address] [place] [phone] * Pap Smear (10/03/2024 3:17 PM EDT) 10/03/2024 3:17 PM EDT 10/07/2024 7:55 AM EDT [facility] - 10/09/2024 1:36 PM EDT ----- ------- Name: Arianna Pineda Age/Sex: 64/F : 1960 Unit#: [id number] Attend Dr: Sanjay Ochoa MD Re10/03/24 Status: DEP REF Location: [facility] Disch: ----- ------- SPEC : [id number] RECD: 10/07/24 STATUS: NUNO BARRETO NUM: [id number] COURTNEY: 10/03/24-[address] [facility] [address]: Sanjay Ochoa MD ENTERED: 10/07/24 SP TYPE: Pap [facility] DR: Lasha Castillo MD ORDERED: Pap Smear Interpretation Satisfactory for evaluation. Negative for intraepithelial lesion or malignancy. Atrophic. HPV High Risk: Negative HPV Genotyping 16: Negative HPV Genotyping 18: Negative Clinical Information LMP: Unknown date Previous PAP test: Unknown date/findings Other history: Pain in pelvis Material Received ThinPrep-Cervical PAP Disclaimer As of January 24, 2024, the technical services to include automated prescreening performed by the ThinPrep Imaging System, PAP screening and HPV testing will be performed at [facility] (CLIA #[id number]), [address] [place] [address]. Testing for HPV was performed using the Marcella JUANJO 6800 system. The presence of HPV in the female genital tract is associated with a number of diseases, including cervical carcinoma. The HPV DNA high risk pool tests for HPV 31, 33, 35, 39, 45, 51, 52, 56, 58, 59, 66 and 68. The testing for HPV 16 and 18 genotypes has also been performed. A positive result indicates detection of nucleic acid sequences from one or more subtypes, whereas a negative result indicates such sequences were not detected. All professional services are performed by [facility] ([address] [place] [address]; ; CLIA #[id number]). The PAP Test is a screening procedure with the inherent possibility of both false negative and false positive results. Results should be interpreted in the context of historic and current clinical findings. Reliability of the PAP Test is enhanced by performing the test on a regular repetitive basis. CONTINUED ON NEXT PAGE ----- ------- Name: Arianna Pineda Age/Sex: 64/F [facility] 1960 [id number] Unit#: [id number] Attend Dr: Sanjay Ochoa MD Re10/03/24 Status: DEP REF Location: [facility] Disch: ----- ------- SPEC : [id number] RECD: 10/07/24 STATUS: NUNO BARRETO NUM: [id number] COURTNEY: 10/03/[address] [facility] [address]: Sanjay Ochoa MD ENTERED: 10/07/24 SP TYPE: Pap Smr OTHR DR: Lasha Castillo MD ORDERED: Pap Smear Copies To: Lasha Castillo MD [facility] [address] [place] [address] Sanjay Ochoa MD [facility] [place] [place] [facility] [address] [place], [place] [phone] ----- ------- Signed (signature on file) ROB Nunes ([facility]) 10/09/24 1336 ----- ------- END OF REPORT us Generic External Data Provider LAB CYTOLOGY AJ WALTERS Final Result [facility] [address] [place] [address] [phone] * Chlamydia/N. Gonorrhoeae RNA, TMA, Urogenitial (10/03/2024 2:44 PM EDT) CT PCR NOT DETECTED Not Detect. [facility] Comment:A not detected test result does not exclude the possibilityof infection because test results can be affected byimproper specimen collection, concurrent antibiotic therapy,or the number of organisms in the specimen which may bebelow the sensitivity of the test. As with many diagnostictests, results from the Xpert CT/NG assay should beinterpreted in conjunction with other laboratory andclinical data available to the clinician.Xpert CT/NG performance has not been evaluated in patientsless than 14 years of age. The assay should not be used forthe evaluationof suspected sexual abuse or for other medico-legalindications. Additional testing is recommended in anycircumstance when false positive or false negative resultscould lead to adverse medical, social or psychologicalconsequences. NG PCR NOT DETECTED Not Detect. [facility] Comment:A not detected test result does not exclude the possibilityof infection because test results can be affected byimproper specimen collection, concurrent antibiotic therapy,or the number of organisms in the specimen which may bebelow the sensitivity of the test. As with many diagnostictests, results from the Xpert CT/NG assay should beinterpreted in conjunction with other laboratory andclinical data available to the clinician.Xpert CT/NG performance has not been evaluated in patientsless than 14 years of age. The assay should not be used forthe evaluationof suspected sexual abuse or for other medico-legalindications. Additional testing is recommended in anycircumstance when false positive or false negative resultscould lead to adverse medical, social or psychologicalconsequences. 10/03/2024 2:44 PM EDT 10/03/2024 4:59 PM EDT us Generic External Data Provider LAB MICROBIOLOGY - GENERAL ORDERABLES Final Result [facility] [address] [place] [phone] * POCT HGB A1C (09/05/2024 2:30 PM EDT) [facility] Hemoglobin A1C 6.0 4.0 - 6.0 % QC Media Lot # [id number] Lot# Expiration Date 1,271 Blood 09/05/2024 2:30 PM EDT Lasha Jara MD POINT OF CARE TEST EN TER/EDIT ORDERABLES Final Result * POCT Glucose (09/05/2024 2:25 PM EDT) Glucose Blood, POC 88 60 - 200 mg/dL QC Media Lot # [id number] Lot# Expiration Date , Blood Capillary blood specimen / Unknown 09/05/2024 2:25 PM EDT Lasha Jara MD POINT OF CARE TEST EN TER/EDIT ORDERABLES Final Result * BI Mammogram Screening Tomosynthesis Bilateral (08/29/2024 10:50 AM EDT) Anatomical Region Laterality Modality Breast Bilateral Mammography 08/29/2024 10:5 0 AM EDT Narrative 09/06/2024 4:28 PM EDT [facility] [address] [place] [address] Mammography Report Signed Patient: Arianna Pineda MR#: [id number] : 1960 Acct:[id number] Age/Sex: 64 / F ADM Date: 08/29/24 Loc: HO.MAMMO Attending Dr: Lasha Castillo MD Ordering Physician: Lasha Castillo MD Resu lts: 2Benign Findings Date of Service: 08/29/24 Follow Up: 1 Year From Orig inal Mammogram Procedure(s): MM tomosynthesis screening BI Accession Number(s): [id number] cc: Lasha Castillo MD EXAMINATION: MM SCREENING DIGITAL BREAST TOMOSYNTHESIS, BILATERAL CLINICAL INFORMATION: Screening. Asymptomatic. COMPARISON: Mammography: Comparison is made with available priors TECHNIQUE: Digital breast mammography with tomosynthesis is performed in both the craniocaudal and mediolateral oblique views along with computer-aided detection (CAD). FINDINGS: The breasts are heterogeneously dense, which may obscure small masses (ACR BI-RADS breast composition Category c). Marker clips. There are no significant masses, abnormal calcifications, or other abnormalities. MM/MM tomosynthesis screening BI IMPRESSION: No mammographic evidence of malignancy. ASSESSMENT: BI-RADS BI-RADS 2 - Benign Findings RECOMMENDATION: Routine annual mammography screening. 1 year F/U This examination should not preclude the clinical evaluation of a suspicious palpable abnormality. This patient's information was entered into a reminder system with a target due date for their next mammogram. Electronically signed by: Gloria Arellano DO 09/06/2024 04:25 PM EDT RP Dictated By: Gloria Arellano DO Signed By: <Electronically signed by Gloria Arellano DO in OV> 09/06/24 1625 DD/ 1050 TD/TT: 08/29/24 1120 Residential Finish Carpenter: Procedure Note Donotuseinterpreter, Image - [facility] [address] [place] [address] Mammography Report Signed Patient: Arianna Pineda EMR#: [id number] : 1960cct:[id number] Age/Sex: 64 / FADM Date: 08/29/24 Loc: [facility] Attending Dr: Lasha Castillo MD Ordering Physician: Lasha Castillo MDResu lts: 2Benign Findings Date of Service: 08/29/24Follow Up: 1 Year From Orig inal Mammogram Procedure(s): MM tomosynthesis screening BI Accession Number(s): [id number] cc: Lasha Castillo MD EXAMINATION: MM SCREENING DIGITAL BREAST TOMOSYNTHESIS, BILATERAL CLINICAL INFORMATION: Screening. Asymptomatic. COMPARISON: Mammography: Comparison is made with available priors TECHNIQUE: Digital breast mammography with tomosynthesis is performed in both the craniocaudal and mediolateral oblique views along with computer-aided detection (CAD). FINDINGS: The breasts are heterogeneously dense, which may obscure small masses (ACR BI-RADS breast composition Category c). Marker clips. There are no significant masses, abnormal calcifications, or other abnormalities. MM/MM tomosynthesis screening BI IMPRESSION: No mammographic evidence of malignancy. ASSESSMENT: BI-RADS BI-RADS 2 - Benign Findings RECOMMENDATION: Routine annual mammography screening. 1 year F/U This examination should not preclude the clinical evaluation of a suspicious palpable abnormality. This patient's information was entered into a reminder system with a target due date for their next mammogram. Electronically signed by: Gloria Arellano DO 09/06/2024 04:25 PM EDT Dictated By: Gloria Arellano DO Signed By: <Electronically signed by Gloria Arellano DO in OV> 09/06/24 1625 DD/ 1050 TD/TT: 08/29/24 1120 Residential Finish Carpenter: Lasha Jara MD IMG BI PROCEDURES Fin al Result * Albumin, Random Urine W/Creatinine (06/29/2022 12:01 PM EDT) Creatinine, Random Urine 112 20 - 275 mg/dL [employer] Albumin, Urine 2.0 See Note: mg/dL [employer] Comment: Reference Range: Reference Range Not established Albumin/Creatinin e Ratio, Random Urine 18 <30 mcg/mg creat [employer] Comment: The ADA defines abnormalities in albumin excretion as follows: Albuminuria Category Result (mcg/mg creatinine) Normal to Mildly increased <30 Moderately increased 30-299 Severely increased > OR = 300 The ADA recommends that at least two of three specimens collected within a 3-6 month period be abnormal before considering a patient to be within a diagnostic category. 06/29/2022 12:0 1 PM EDT 06/29/2022 12:02 PM EDT Narrative [facility] - 06/30/2022 5:17 PM EDT SPLIT 06/29/2022 FROM [id number] Lasha Jara MD LAB URINE ORDERABLES Final Result Performing Organization Address [facility]/ZIP Co de Phone Number [address], [place] [phone] [employer] [address] [place] [phone] * Hepatitis C Antibody with Reflex to HCV, RNA, Quantitative, Real-Time PCR (06/29/2022 9:03 AM EDT) Hepatitis C Antibody NON-REACT BROCK NON-REACT BROCK [employer] Index 0.07 <1.00 [employer] Comment: HCV antibody was non-reactive. There is no laboratory evidence of HCV infection. In most cases, no further action is required. However, if recent HCV exposure is suspected, a test for HCV RNA (test code 47228) is suggested. For additional information please refer to http://education.[employer]/faq/NWD28a2 (This link is being provided for informational/ educational purposes only.) 06/29/2022 9:03 AM EDT 06/29/2022 9:04 AM EDT Rishabh [facility] - 06/29/2022 10:21 PM EDT FASTING:NO PATIENT UNABLE TO VOID; ADVISED TO RETURN FOR COLLECTION. FASTING: NO Lasha Jara MD LAB BLOOD ORDERABLES Final Result Performing Organization Address [facility] Co de Phone Number [address], [place] [place] [phone] [employer] [address] [place] [phone] * Hm Colonoscopy (06/26/2019) Colonoscopy Normal Normal 06/26/2019 Irene Zavala - 06/26/2019 2:53 PM EDT Recommended 5 year follow up ( see scanned notes) Historical Provider HEALTH MAINTENANCE Edited Result - Final from Last 3 Months or Most Recently Relevant to Health Maintenance Insurance [place] [facility] STAND ADULT Care Teams Senior Systems Administrator Relationship Specialty Start Date End Date Lasha Marrufo MD [address] [place] [address] PCP - General Internal Medicine 12/25/13 Farzad Sandhu MD [address] [place] [id number] Cardiology 11/08/24
--- OUTSIDE RECORDS SUMMARY | 2024-11-26 12:07 | XMS_ITS | Encounter Summary ---
Author Organization [employer] Address 75 [facility] 7[address] [place] [address] Care Team Providers Care Assistant Professor Of Archaeology Name Role Phone Lasha Marrufo MD Primary Care Provide r Farzad Sandhu MD Unavailable [phone] Reason for Visit * Reason Onset Date Comments ER Follow-up 11/25/2024 Encounter Details Date Type Department Care Team (Late st Contact Info) Description 11/25/2024 Telephone [facility] [address] [place], [place] [phone] Nancy Frye, RN [address] [place], [place] [phone] ER Follow-up Social History Tobacco Use Types Packs/Day Years [...] encounter Miscellaneous Notes * Telephone Encounter - Nancy Frye RN - 11/25/2024 9:29 AM EDT Telephone call placed to pt utilizing S #06409 for ED status check. Pt reports taking Abx as directed. Still heard to have a productive cough during phone call but pt reports that it is improving. Pt reports that before she couldn't do anything because her asthma was so bad she could barely breathe but now she can walk and do things. Pt reports 1 Abx is done, other one has 3 days left on script. Advised she finish Abx and drink plenty of water to thin the secretions in her lungs and make it easier to cough up. Advised if she doesn't feel better or Sx worsen, let us know. Pt verbalized understanding and denied having any further questions or concerns at this time. Pt was seen in ED with PNA and treated with Augmentin and azithromycin. Please call for status check. Thank you! documented in this encounter Plan of Treatment Upcoming Encounters Date Type Department Care Team (Late st Contact Info) Description 12/10/2024 1:15 PM EDT Office Visit [facility] [address] [place] [address] Lasha Marrufo MD [address] [place], [place] [phone] 01/28/2025 3:00 PM EDT Office Visit [facility] [address] [place] [address] Lasha Marrufo MD [address] [place] [address] documented as of this encounter Goals Goal Patient Goal Type Associated Problems Recent Progress Patient-Stated? Author Smoking cessation General No Willa Chaparro Help patient manage nicotine dependency General No Willa Chaparro documented as of this encounter Visit Diagnoses Not on filedocumented in this encounter Additional Health Concerns Assessment Noted Time PHQ-9 Depression Total Score: 9 09/06/19 2:54 PM EDT documented as of this encounter Care Teams Assistant Professor Of Archaeology Relationship Specialty Start Date End Date Lasha Marrufo MD [address] [place] [address] PCP - General Internal Medicine 12/25/13 Farzad Sandhu MD [address] [place] [address] Cardiology 11/08/24 documented as of this encounter
--- OUTSIDE RECORDS SUMMARY | 2024-11-26 12:07 | XMS_ITS | Encounter Summary ---
Author Organization [employer] Address 75 [facility] 7[place] [address] Care Team Providers Care Tube Former Operator Name Role Phone Lasha Marrufo MD Primary Care Provide r Farzad Sandhu MD Unavailable [phone] Reason for Visit * Reason Onset Date Comments Referral 10/21/2024 Encounter Details Date Type Department Care Team (Late st Contact Info) Description 10/21/2024 Telephone [facility] 230 [place], [place] [phone] Lasha Marrufo MD 230 [place] [address] Referral Social History Tobacco Use Types Packs/Day Years [...] encounter Miscellaneous Notes * Telephone Encounter - Meliton Paul - 10/21/2024 12:30 PM EDT Tc from pt requesting a referral for a [place] las[place]. Any questions contact pt at [phone]. documented in this encounter Plan of Treatment Upcoming Encounters Date Type Department Care Team (Late st Contact Info) Description 12/10/2024 1:15 PM EDT Office Visit [facility] [address] [place] [address] Lasha Marrufo MD [address] [place] [address] 01/28/2025 3:00 PM EDT Office Visit [facility] [address] [place] [address] Lasha Marrufo MD [address] [place] [address] documented as of this encounter Goals Goal Patient Goal Type Associated Problems Recent Progress Patient-Stated? Author Smoking cessation General No Willa Chaparro Help patient manage nicotine dependency General No Willa Chaparro documented as of this encounter Visit Diagnoses Not on filedocumented in this encounter Additional Health Concerns Assessment Noted Time PHQ-9 Depression Total Score: 9 09/06/19 25 2:54 PM EDT documented as of this encounter Care Teams Tube Former Operator Relationship Specialty Start Date End Date Lasha Marrufo MD [address] [place] [address] PCP - General Internal Medicine 12/25/13 Farzad Sandhu MD [address] [place] [address] Cardiology 11/08/24 documented as of this encounter
--- OUTSIDE RECORDS SUMMARY | 2024-11-26 12:07 | XMS_ITS | Clinical Summary ---
Author Organization [facility] Address [address] [place] [address] [place] [address] Phone Care Team Providers Care Contract Processor Name Role Phone Pcp, Unknown Primary Care Provider Unavailabl e Social History Tobacco Use Types Packs/Day Years Used Date Smoking Tobacco: Never Assessed Education Answer Date Recorded Are you interested in more education? Not on kelly e 07/29/2022 Are you concerned about learning? Not on file 07/29/2022 No 07/29/2022 No 07/29/2022 Digital Access Answer Date Recorded No 08/30/2022 No 08/30/2022 Reliable internet access at home? Not on file 08/30/2022 Device with a working camera? Not on file Comments Unknown Sex and Gender Information Value Date Recorded Sex Assigned at Not on file Legal Sex Female 8:42 AM EDT Gender Identity Not on file Sexual Orientation Not on file Plan of Treatment Not on file Medical Devices Not on file Insurance [facility] C3 ACO C3 ACO C3 ACO C3 ACO ACO C3 ACO C3 ACO C3 ACO [facility] C3 ACO Care Teams Contract Processor Relationship Specialty Start Date End Date Pcp, Unknown PCP - General 08/29/19 Additional Source Comments The information contained in this document represents components of the legal health record. It is not the complete legal health record.[facility]
--- OUTSIDE RECORDS SUMMARY | 2024-11-26 12:07 | XMS_ITS | Encounter Summary ---
Author Organization [employer] Address 75 [facility] 7[address] [place] [address] Care Team Providers Care Regulatory Submissions Associate Name Role Phone Lasha Marrufo MD Primary Care Provide r Farzad Sandhu MD Unavailable [phone] Encounter Details Date Type Department Care Team (Late st Contact Info) Description 04/06/2022 Orders Only [facility] [address] [place] [address] Eliz Adorno LPN Social History Tobacco Use [...] Description 12/10/2024 1:15 PM EDT Office Visit [facility] MEDICINE [address] [place] [address] Lasha Marrufo MD [address] [place] [address] 01/28/2025 3:00 PM EDT Office Visit [facility] MEDICINE [address] [place] [address] Lasha Marrufo MD [address] [place] [address] documented as of this encounter Visit Diagnoses Not on filedocumented in this encounter Care Teams Regulatory Submissions Associate Relationship Specialty Start Date End Date Lasha Marrufo MD 230 [place] [address] PCP - General Internal Medicine 12/25/13 Farzad Sandhu MD [address] [place] [address] Cardiology 11/08/24 documented as of this encounter
--- OUTSIDE RECORDS SUMMARY | 2024-11-26 12:07 | XMS_ITS | Encounter Summary ---
Author Organization [employer] Address 75 [facility] 7[address] [place] [address] Care Team Providers Care Market Research Analyst Name Role Phone Lasha Marrufo MD Primary Care Provide r Farzad Sandhu MD Unavailable [phone] Reason for Visit * Reason Onset Date Comments tooth fell off partial again 11/21/2023 Encounter Details Date Type Department Care Team (Late st Contact Info) Description 11/21/2023 Telephone [facility] 230 [place] [address] Jeanne Arreola, DDS 230 [place], [place] [phone] tooth fell off partial again Social History [...] Description 12/10/2024 1:15 PM EDT Office Visit [facility] MEDICINE [address] [place] [address] Lasha aMrrufo MD [address] [place] [address] 01/28/2025 3:00 PM EDT Office Visit [facility] MED[facility] [address] [place] [address] Lasha Marrufo MD [address] [place] [address] documented as of this encounter Goals Goal [...] documented as of this encounter Care Teams Market Research Analyst Relationship Specialty Start Date End Date Lasha Marrufo MD [address] [place] [address] PCP - General Internal Medicine 12/25/13 Farzad Sandhu MD [address] [place] [address] Cardiology 11/08/24 documented as of this encounter
--- OUTSIDE RECORDS SUMMARY | 2024-11-26 12:07 | XMS_ITS | Encounter Summary ---
Author Organization [employer] Address [address] [place] [address] 7t [place] [address] Care Team Providers Care School Bus Driver/Custodian Name Role Phone Lasha Marrufo MD Primary Care Provide r Farzad Sandhu MD Unavailable [phone] Reason for Visit * Reason Comments Med Refill Encounter Details Date Type Department Care Team (Late st Contact Info) Description 03/09/2022 Refill [facility] [address] [place] [phone] Lasha Marrufo MD [address] [place] [address] Acute migraine (Primary Dx) Social History Tobacco [...] Description 12/10/2024 1:15 PM EDT Office Visit [facility] [address] [place] [address] [phone] Lasha Marrufo MD [address] [place] [address] 01/28/2025 3:00 PM EDT Office Visit [facility] [address] [place] [address] Lasha Marrufo MD 230 [place] [address] documented as of this encounter Visit Diagnoses Diagnosis Acute migraine- Primary documented in this encounter Care Teams School Bus Driver/Custodian Relationship Specialty Start Date End Date Lasha Marrufo MD 230 [place] [address] PCP - General Internal Medicine 12/25/13 Farzad Sandhu MD [address] [place] [address] Cardiology 11/08/24 documented as of this encounter
--- OUTSIDE RECORDS SUMMARY | 2024-11-26 12:07 | XMS_ITS | Encounter Summary ---
Author Organization [employer] Address 75 [facility] 7t [place] [address] Care Team Providers Care Molecular Physicist Name Role Phone Lasha Marrufo MD Primary Care Provide r Farzad Sandhu MD Unavailable [phone] Encounter Details Date Type Department Care Team (Late st Contact Info) Description 05/03/2022 Orders Only [facility] MEDICINE [address] [place] [address] Elsa Julien LPN Social History Tobacco Use [...] 1:15 PM EDT Office Visit [facility] [address] [place] [address] Lasha Marrufo MD [address] [place] [address] 01/28/2025 3:00 PM EDT Office Visit [facility] [address] [place] [address] Lasha Marrufo MD [address] [place] [address] documented as of this encounter Visit Diagnoses Not on filedocumented in this encounter Care Teams Molecular Physicist Relationship Specialty Start Date End Date Lasha Marrufo MD 230 [place] [address] PCP - General Internal Medicine 12/25/13 Farzad Sandhu MD [address] [place] [address] Cardiology 11/08/24 documented as of this encounter
--- OUTSIDE RECORDS SUMMARY | 2024-11-26 12:07 | XMS_ITS | Clinical Summary ---
Author Organization [facility] Address [address] [place] [address] Phone Care Team Providers Care Research Contracts Supervisor Name Role Phone Lasha Castillo MD Primary [...] 11/27/2024 10:45 AM EDT Consult Orthopedic Surgery [facility] [address] [place] [address] [phone] Estevan Viramontes, MIAH [address] [place] [phone] Health Maintenance Due Date Last Done Comments [...] (HGBA1C) 08/12/2024 02/13/2024 Influenza Vaccine (#1) 2024 , 02/15/2022, 01/15/2020, Additional history exists DTaP,Tdap,and Td [...] topic Insurance MEDICAID - [place] Care Teams Research Contracts Supervisor Relationship Specialty Start Date End Date Lasha Castillo MD [address] [place] [phone] PCP - General Internal Medicine 09/09/24
--- OUTSIDE RECORDS SUMMARY | 2024-11-26 12:07 | XMS_ITS | Encounter Summary ---
Author Organization [employer] Address [address] [facility] 7[address] [place] [address] Care Team Providers Care Azure Developer Name Role Phone Lasha Marrufo MD Primary Care Provide r Farzad Sandhu MD Unavailable [phone] Encounter Details Date Type Department Care Team (Late st Contact Info) Description 04/13/2022 Orders Only [facility] MEDICINE [address] [place] [phone] Elsa Julien LPN Social History Tobacco Use [...] Description 12/10/2024 1:15 PM EDT Office Visit [facility] MEDICINE [address] [place] [phone] Lasha Marrufo MD [address] [place] [address] 01/28/2025 3:00 PM EDT Office Visit [facility] MEDICINE [address] [place] [address] Lasha Marrufo MD [address] [place] [address] documented as of this encounter Visit Diagnoses Not on filedocumented in this encounter Care Teams Azure Developer Relationship Specialty Start Date End Date Lasha Marrufo MD 230 [place] [address] PCP - General Internal Medicine 12/25/13 Farzad Sandhu MD [address] [place] [address] Cardiology 11/08/24 documented as of this encounter
--- OUTSIDE RECORDS SUMMARY | 2024-11-26 12:07 | XMS_ITS | Encounter Summary ---
Author Organization [employer] Address 75 [facility] 7[address] [place] [address] Care Team Providers Care Global Marketing Operations Manager Name Role Phone Lasha Marrufo MD Primary Care Provide r Farzad Sandhu MD Unavailable [phone] Encounter Details Date Type Department Care Team ([facility] st Contact Info) Description 02/19/2024 Telephone [facility] MEDICINE 230 [place], [place] [phone] Lasha Marrufo MD [address] [place] [address] Social History Tobacco Use Types Packs/Day Years [...] Description 12/10/2024 1:15 PM EDT Office Visit [facility] MEDICINE [address] [place] [address] Lasha Marrufo MD [address] [place] [address] 01/28/2025 3:00 PM EDT Office Visit [facility] MEDICINE [address] [place] [address] Lasha Marrufo MD [address] [place] [address] documented as of this encounter Goals Goal [...] documented as of this encounter Care Teams Global Marketing Operations Manager Relationship Specialty Start Date End Date Lasha Marrufo MD [address] [place] [address] PCP - General Internal Medicine 12/25/13 Farzad Sandhu MD [address] [place] [address] Cardiology 11/08/24 documented as of this encounter
--- OUTSIDE RECORDS SUMMARY | 2024-11-26 12:07 | XMS_ITS | Encounter Summary ---
Author Organization [employer] Address 75 [facility] 7t [place] [address] Care Team Providers Care Airline Mechanic Name Role Phone Lasha Marrufo MD Primary Care Provide r Farzad Sandhu MD Unavailable Reason for Visit * Reason Onset Date Comments appt PA approved 12/22/2023 Encounter Details Date Type Department Care Team (Late st Contact Info) Description 12/22/2023 Telephone [facility] D[facility] [address] [place] [address] Jeanne Arreola, DDS [address] [place] [address] appt PA approved Social History Tobacco Use [...] 12/10/2024 1:15 PM EDT Office Visit [facility] MEDICINE [address] [place] [address] Lasha Marrufo MD [address] [place] [address] 01/28/2025 3:00 PM EDT Office Visit [facility] MED[facility]INE [address] [place] [address] Lasha Marrufo MD [address] [place] [address] documented as of this encounter Goals Goal [...] documented as of this encounter Care Teams Airline Mechanic Relationship Specialty Start Date End Date Lasha Marrufo MD [address] [place] [address] PCP - General Internal Medicine 12/25/13 Farzad Sandhu MD [address] [place] [address] Cardiology 11/08/24 documented as of this encounter
--- OUTSIDE RECORDS SUMMARY | 2024-11-26 12:07 | XMS_ITS | Encounter Summary ---
Author Organization [employer] Address 75 [facility] 7t [place] [address] Care Team Providers Care Low Heel Builder Name Role Phone Lasha Marrufo MD Primary Care Provide r Farzad Sandhu MD Unavailable Encounter Details Date Type Department Care Team (Late st Contact Info) Description 06/30/2022 Orders Only [facility] MED[facility]INE [address] [place] [address] Elsa Julien LPN Social History Tobacco Use [...] Description 12/10/2024 1:15 PM EDT Office Visit [facility] MEDICINE [address] [place] [address] Lasha Marrufo MD [address] [place] [address] 01/28/2025 3:00 PM EDT Office Visit [facility] [address] [place] [address] Lasha Marrufo MD [address] [place] [address] documented as of this encounter Visit Diagnoses Not on filedocumented in this encounter Care Teams Low Heel Builder Relationship Specialty Start Date End Date Lasha Marrufo MD [address] [place] [address] PCP - General Internal Medicine 12/25/13 Farzad Sandhu MD [address] [place] [address] Cardiology 11/08/24 documented as of this encounter
--- OUTSIDE RECORDS SUMMARY | 2024-11-26 12:07 | XMS_ITS | Encounter Summary ---
Author Organization [employer] Address 75 [facility] 7[address] [place] [address] Care Team Providers Care Industrial Gas Servicer Name Role Phone Lasha Marrufo MD Primary Care Provide r Farzad Sandhu MD Unavailable [phone] Reason for Visit * Reason Onset Date Comments Interoffice Coordination 11/08/2024 Encounter Details Date Type Department Care Team (Late st Contact Info) Description 11/08/2024 Results Follow-Up [facility]INE [address] [place], [place] [phone] Nancy Frye, RN 230 [place], [place] [phone] ECG 12 lead Social History Tobacco Use Types Packs/Day Years [...] Telephone Encounter - Nancy Frye RN - 11/11/2024 10:32 AM EDT Faxed EKG and echo results to [facility] Cards as below * Telephone Encounter - Nancy Frye RN - 11/08/2024 10:47 AM EDT Telephone call placed to pt's cardiology office. Spoke with Helen who reports pt has appt 11/26 @10am with Dr Sandhu. Informed I would fax over echo and EKG for his review as pt has new onset AFIB.EKG not yet scanned into chart. Will retask to fax records once available. * Telephone Encounter - Nancy Frye RN - 11/08/2024 10:36 AM EDT ----- Message from Lasha Jara MD sent at 11/08/2024 9:51 AM EDT ----- Please find out when patient is being seen by her fertilizer mixer for new onset of Atrial Fibrillation ----- Message ----- From: Humza Loza MD Sent: 11/06/2024 6:48 PM EDT To: Lasha Jara MD documented in this encounter Plan of Treatment Upcoming Encounters Date Type Department Care Team (Late st Contact Info) Description 12/10/2024 1:15 PM EDT Office Visit [facility] [address] [facility] [place] [address] Lasha Marrufo MD [address] [facility] [place] [address] 01/28/2025 3:00 PM EDT Office Visit [facility] [address] [place] [address] Lasha Marrufo MD [address] [place] [address] documented as of this encounter Goals Goal [...] documented as of this encounter Care Teams Industrial Gas Servicer Relationship Specialty Start Date End Date Lasha Marrufo MD [address] [facility] [place] [place] [address] PCP - General Internal Medicine 12/25/13 Farzad Sandhu MD [address] [place] [address] Cardiology 11/08/24 documented as of this encounter
--- OUTSIDE RECORDS SUMMARY | 2024-11-26 12:07 | XMS_ITS | Encounter Summary ---
Author Organization [employer] Address 75 [facility] 7t [place] [address] Care Team Providers Care Event Host Name Role Phone Lasha Marrufo MD Primary Care Provide r Farzad Sandhu MD Unavailable [phone] Reason for Visit * Reason Comments Med Refill Encounter Details Date Type Department Care Team (Late st Contact Info) Description 10/28/2024 Refill [facility] [address] [place], [place] [phone] Lasha Marrufo MD 230 [place], [place] [phone] Acquired hypothyroidism; Mild intermittent asthma without complication [...] Description 12/10/2024 1:15 PM EDT Office Visit [facility] [address] [place] [address] Lasha Marrufo MD [address] [place] [address] 01/28/2025 3:00 PM EDT Office Visit [facility] [address] [place] [address] Lasha Marrufo MD [address] [place] [address] documented as of this encounter Goals Goal [...] documented as of this encounter Care Teams Event Host Relationship Specialty Start Date End Date Lasha Marrufo MD [address] [place] [address] PCP - General Internal Medicine 12/25/13 Farzad Sandhu MD [address] [place] [address] Cardiology 11/08/24 documented as of this encounter
--- OUTSIDE RECORDS SUMMARY | 2024-11-26 12:07 | XMS_ITS | Patient Health Record ---
Author Organization [facility] Address [address] [place] [address] Care Team Providers Care Claim Attorney Name Role Phone Mirella Jara MD, Lasha Primary Care Provide Medardo Thornton Jr Unavailable [phone] Allergies Allergen (clinical drug ingredient) Drug/Non Drug Allergy documented on EMR Reaction Allergy Type Onset Date Status codeine Codeine Sulfate Unknown Drug Allergy A ctive Results Component Value Reference Range Notes Complete Blood Count no Diff Reviewed date:04/02/2024 02:01:30 PM Interpretation: Performing Lab:[facility], [address] [place] [address] Notes/Report: White Blood Count 8.0 4.8-10.8 X10*3/uL [...] Panel Reviewed date:04/02/2024 02:01:14 PM Interpretation: Performing Lab:[facility], [address] [place] [phone] Notes/Report: Bilirubin Total 0.2 0.0-1.0 mg/dL Bilirubin Direct < 0.2 0.0-0.5 mg/dL Aspartate Amino Transferase 21 5-31 U/L Alanine Aminotransferase 22 0-31 U/L Total Protein 7.7 6.5-8.0 g/dL Albumin Level 4.1 3.5-5.0 g/dL Alkaline Phosphatase 128 39-117 U/L IRON PROFILE Reviewed date:04/02/2024 02:01:24 PM Interpretation: Performing Lab:[facility], [address] [place] [phone] Notes/Report: Iron 41 30-160 mcg/dL Total Iron Binding Capacity 335 228-428 mcg/dL Percent Iron Saturation 12 15-50 % Unsaturated Iron Binding 294 Ferritin Reviewed date:04/02/2024 02:01:49 PM Interpretation: Performing Lab:[facility], [address] [place] [phone] Notes/Report: Ferritin 11 10-250 ng/mL Liver Fibrosis Pnl Reviewed date:04/08/2024 08:30:50 AM Interpretation: Performing Lab:[facility], [address] [place] [phone] Notes/Report: Liver Fibrosis Score 0.19 Liver Fibrosis [...] a>0.62 and a<=1.00 : A3 (severe activity) TUV-Aagjs-7-Macroglobuli n 219 106-279 mg/dL FIB-Haptoglobin 217 43-212 mg/dL FIB-Apolipoprotein A1 153 101-198 mg/dL FIB-Total Bilirubin 0.2 0.2-1.2 mg/dL FIB-GGT 119 3-65 U/L FIB-ALT 14 6-29 U/L Reference ID [id number] Footnote SEE NOTE The reliability of results is dependent on compliance with the preanalytical and analytical conditions recommended by [employer]. The tests have to be deferred for: [...] The performance characteristics have been determined by [facility]. It has not been cleared or approved by the U.S. Food and Drug Administration. Performance characteristics refer to the analytical performance of the test. Kashmi, the associated logo, GOBA and all associated [employer] givens are the registered trademarks of [employer]. All third republican givens - (R) and (TM) - are the property of their respective owners. (C) 1608-4416 [employer]. All rights reserved. THIS TEST WAS PERFORMED AT: [facility] [address] [place] [address] TRAVIS BOO MD,PHD,TRINY SANDEEP Reflex Titer and Pattern Reviewed date:04/05/2024 02:03:11 PM Interpretation: Performing Lab:[facility], [address] [place] [phone] Notes/Report: Anti Nuclear Antibody Screen NEGATIVE NEGATIVE [...] Negative International Consensus on SANDEEP Patterns (https://doi.org/10.151 5/dfpm-6469-9099) For additional information, please refer to http://education.BioDigital/faq/FAQ1 95 (This link is being provided for informational/ educational purposes only.) THIS TEST WAS PERFORMED AT: [facility] [address] [place] [phone] JEAN PAUL LEWIS MD Anti Nuclear Antibody Titer TNP Anti Nuclear Antibody Pattern TNP SANDEEP Titer 2 TNP SANDEEP Pattern 2 TNP SANDEEP Titer 3 TNP SANDEEP Pattern 3 TNP Mitochondrial Antibody Reviewed date:04/09/2024 03:01:22 PM Interpretation: Performing Lab:[facility], [address] [place] [phone] Notes/Report: Mitochondrial Antibodies NEGATIVE NEGATIVE The specimen was negative for cytoplasmic antibodies, however additional staining was observed suggesting the presence of Antinuclear Antibodies. Consider requesting order code 249, SANDEEP Screen, IFA with Reflex to Titer and Pattern, or order code [id number], SANDEEP Screen, IFA w/reflex Titer/Pattern, and Reflex to Multiplex 11 Ab [place], if clinically indicated. THIS TEST WAS PERFORMED AT: [facility] [address] [address] JEAN PAUL LEWIS MD Mitochondrial Ab Titer TNP Smooth Muscle Antibody Reviewed date:04/09/2024 03:01:16 PM Interpretation: Performing Lab:[facility], [address] [place] [phone] Notes/Report: Smooth Muscle Antibody 25 <20 U [...] type 1. THIS TEST WAS PERFORMED AT: [facility]/[address] [address] SIGRID MOLINA MD,PHD Hepatitis A,B,C Profile Reviewed date:04/02/2024 02:01:41 PM Interpretation: Performing Lab:[facility], [address] [place] [phone] Notes/Report: Hepatitis A Antibody IgM Nonreactive Nonreactive [...] Blood Reviewed date:04/02/2024 01:59:23 PM Interpretation: Performing Lab:[facility], [address] [place] [phone] Notes/Report: Glucose, Whole Blood 106 60-115 mg/dL METER # : [id number] Pathology Reviewed date:04/05/2024 03:24:48 PM Interpretation: Performing Lab:[facility], [address] [place] [phone] Notes/Report: Complete Blood Count Auto Di ff Reviewed date:10/24/2024 08:44:04 AM Interpretation: Performing Lab:[facility], [address] [place] [phone] Notes/Report: White Blood Count 7.8 4.8-10.8 X10*3/uL [...] Panel Reviewed date:10/24/2024 08:39:47 AM Interpretation: Performing Lab:[facility], [address] [place] [phone] Notes/Report: Sodium 143 135-145 mmol/L Potassium 3.9 [...] Panel Reviewed date:10/24/2024 08:39:21 AM Interpretation: Performing Lab:[facility], [address] [place] [phone] Notes/Report: Triglycerides 147 <150 mg/dL Desirable Triglyceride: [...] Pattern Reviewed date:10/30/2024 05:07:02 PM Interpretation: Performing Lab:[facility], [address] [place] [phone] Notes/Report: Anti Nuclear Antibody Screen POSITIVE NEGATIVE SANDEEP IFA is a first line screen for detecting the presence of up to approximately 150 autoantibodies in various autoimmune diseases. A positive SANDEEP IFA result is suggestive of autoimmune disease and reflexes to titer and pattern. Further laboratory testing may be considered if clinically indicated. For additional information, please refer to http://education.BioDigital/faq/FAQ1 77 (This link is being provided for informational/ educational purposes only.) Anti Nuclear Antibody Titer 1:1280 Reference Range <1:40 Negative 1:40-1:80 Low Antibody Level >1:80 Elevated Antibody Level Anti Nuclear Antibody Pattern Nuclear, Nucleolar Nucleolar pattern is associated with systemic sclerosis (scleroderma), systemic sclerosis/polymyositis overlap and Sjogren's syndrome. AC-8,9,10: Nucleolar International Consensus on SANDEEP Patterns (https://doi.org/10151 wkve-0373-8427) SANDEEP Titer 2 1:320 Reference Range <1:40 Negative 1:40-1:80 Low Antibody Level >1:80 Elevated Antibody Level SANDEEP Pattern 2 Nuclear, Homogeneous Homogeneous pattern is associated with systemic lupus erythematosus (SLE), drug-induced lupus and juvenile idiopathic arthritis. AC-1: Homogeneous International Consensus on SANDEEP Patterns (https://doi.org/10151 qxze-1631-0074) THIS TEST WAS PERFORMED AT: [facility] [address] [place] [phone] JEAN PAUL LEWIS MD SANDEEP Titer 3 TNP SANDEEP Pattern 3 TNP US abdomen complete Reviewed date:10/24/2024 08:44:16 AM Interpretation: Performing Lab: Notes/Report: [place] [address] Ultrasound Report Signed Patient: Yuan Waters MR#: [id number] : 1960 Acct:[id number] Age/Sex: 64 / F ADM Date: 10/23/24 Loc: HO.US Attending Dr: Medardo Delgado MD Ordering Physician: Medardo Delgado MD Date of Service: 10/23/24 Procedure(s): US abdomen complete Accession Number(s): [id number] cc: Medardo Dlegado MD; Lasha Castillo MD EXAMINATION: US ABDOMEN [...] OV> 10/23/24 0943 DD/ 0835 TD/TT: 10/23/2417 [employer] Associate: HIV Ab/Ag Reviewed date:10/24/2024 08:38:16 AM Interpretation: Performing Lab:[facility], [address] [place] [phone] Notes/Report: HIV AB/AG Nonreactive Nonreactive HIV-1 p24 [...] limit of detection of this assay. The [employer] HIV Ag/Ab Combo assay result and supplemental assay results should be interpreted in conjunction with the patient's clinical presentation, history and other laboratory results. If the results are inconsistent with clinical evidence, additional testing is suggested to confirm the result. Reason For Referral Referring Provider First Name Lasha Referring Provider Last Name Mirella perez Referring Provider Speciality Internal M edicine Referred Organization [facility] Referred Provider Medardo Delgado Jr Referred Address [address] [place] [address],[place] [address],[place], [place],[address],[place] Referred Provider Specialty Gastroentero logy General Notes Kelsi Christianson 2024 09:59:43 AM >requested a [facility] referral from [facility] for visit with dr akins on [...] MG TAKE 1 CAPSULE BY MO [facility] TWICE DAILY Oral for 30 Active Immunizations Vaccine Route Administration Date Status Comme nts Influenza Unknown 12/02/2018 Administered Influenza Unknown 01/15/2020 Administered Influenza Unknown 01/01/2022 Administered Influenza Unknown 08/31/2023 Refused Problems Problem Type SNOMED Code ICD Code Onset Dates Problem Status W/U Status Risk Notes Problem 22695643 Rectal bleeding (K62.5) Active confirmed Problem 31616938 Constipation (K59.00) Active confirmed Problem Gastroesophageal reflux disease (056225458) Gastroesophageal reflux disease (K21.9) Active confirmed Problem 230793127 Gastroesophageal reflux disease without esophagitis (K21.9) Active confirmed Problem 054258473 Fatty liver (K76.0) Active confirmed Problem 41478625 Hiatal hernia (K44.9) Active confirmed Problem 96826986 Dysphagia, unspecified type (R13.10) Active confirmed Problem 845697705 Abnormal UGI series (R93.3) Active confirmed Problem 910711989 Irritable bowel syndrome with constipation (K58.1) Active confirmed Problem 434467528 GERD without esophagitis (K21.9) Active confirmed Problem 032701302 LUQ pain (R10.12) Active confirmed Problem 518845073 LLQ pain (R10.32) Active confirmed Problem 711087054 Epigastric mass (R19.06) Active confirmed Vital Signs Blood pressure diastolic 77 mm Hg 08/29/2024 Height 66.5 in 08/29/2024 Blood pressure systolic 111 mm Hg 08/29/2024 Weight 225 lbs 08/29/2024 BMI 35.77 kg/m2 08/29/2024 Encounters Encounter Location Date Provider Diagnosis [facility] Outpatient [address] [place] [id number] 04/02/2024 Medardo Delgado Jr Abnormal UGI series R93.3 [facility] [address] [place] [phone] 03/14/2024 Medardo Delgado Jr Abnormal UGI series R93.3 ; Dysphagia, unspecified type R13.10 and Fatty liver K76.0 [facility] [address] [place] [phone] 08/29/2024 Medardo Delgado Jr Abdominal pain R10.9 ; Gastroesophageal reflux disease without esophagitis K21.9 and Constipation K59.00 [facility] [address] [place] [phone] 02/19/2024 Medardo Delgado Jr Gastroesophageal reflux disease without esophagitis K21.9 [facility] [address] [place] [id number] 02/21/2024 Medardo Delgado Jr [facility] [address] [place] [phone] 03/19/2024 Medardo Delgado Jr [facility] [address] [place] [phone] 04/02/2024 Medardo Delgado Jr [facility] [address] [place] [phone] 04/05/2024 Medardo Delgado Jr [facility] [address] [place] [id number] 10/24/2024 Medardo Delgado Jr [facility] [address] [place] [address] 10/30/2024 Medardo Delgado Jr Assessments Encounter Date [...] Maximus vallecillo Jr, 08/14/2025 03:35:00 PM, [address], [address], [place], [address], Insurance Providers Payer Name Payer Address Payer Phone Subscriber Number Group Number Insured Name Patient Relationship to Insured Coverage Start Date Coverage End Date MEDICAID OF [facility] [address] [place] [address] [phone] [id number] YUAN LR Self - patient is the insured Medical (General) History Medical History History ICD Code hypertension obesity Hypothyroidism asthma arthritis SANDEEP + colonoscopy 06/26/19, 1 adenoma, five-yea r followup recommended Gastroesophageal reflux dise [facility], EGD/03/23, no Santos's esophagus or H. pylori.EGD 03/26, no H. pylori, Santos's esophagus, or celiac disease. Obstructive sleep apnea type II diabetes Surgical History Surgery Date(Month/Year) knee surgery-right cholecystectomy tubal ligation breast biopsy
--- OUTSIDE RECORDS SUMMARY | 2024-11-26 12:07 | XMS_ITS | Encounter Summary ---
Author Organization [employer] Address [address] [place] [address] [address] [place] [address] Care Team Providers Care Branch Library Clerk Name Role Phone Lasha Marrufo MD Primary Care Provide r Farzad Sandhu MD Unavailable [phone] Encounter Details Date Type Department Care Team (Late st Contact Info) Description 03/31/2022 Telephone [facility] [address] [place] [address] Lasha Marrufo MD [address] [place] [phone] Social History Tobacco Use Types Packs/Day Years [...] 1:15 PM EDT Office Visit [facility] [address] [place] [address] Lasha Marrufo MD [address] [place] [address] 01/28/2025 3:00 PM EDT Office Visit [facility] [address] [place] [address] Lasha Marrufo MD [address] [place] [address] documented as of this encounter Visit Diagnoses Not on filedocumented in this encounter Care Teams Branch Library Clerk Relationship Specialty Start Date End Date Lasha Marrufo MD [address] [place] [address] PCP - General Internal Medicine 12/25/13 Farzad Sandhu MD [address] [place] [address] Cardiology 11/08/24 documented as of this encounter
--- OUTSIDE RECORDS SUMMARY | 2024-11-26 12:07 | XMS_ITS | Encounter Summary ---
Author Organization [employer] Address [address] [facility] [address] [place] [address] Care Team Providers Care College Associate Name Role Phone Lasha Marrufo MD Primary Care Provide r Farzad Sandhu MD Unavailable [phone] Reason for Visit * Reason Comments Med Refill Encounter Details Date Type Department Care Team (Late st Contact Info) Description 10/27/[address] [facility] [address] [place], [place] [phone] Lasha Marrufo MD [address] [place], [place] [phone] Acquired hypothyroidism; Mild intermittent asthma without complication [...] 12/10/2024 1:15 PM EDT Office [address] [facility] [address] [place] [address] Lasha Marrufo MD [address] [place] [address] 01/28/2025 3:00 PM EDT Office Visit [facility] [address] [place] [address] Lasha Marrufo MD [address] [place] [address] documented as of this encounter Goals Goal [...] documented as of this encounter Care Teams College Associate Relationship Specialty Start Date End Date Lasha Marrufo MD [address] [place] [address] PCP - General Internal Medicine 12/25/13 Farzad Sandhu MD [address] [place] [address] Cardiology 11/08/24 documented as of this encounter
--- OUTSIDE RECORDS SUMMARY | 2024-11-26 12:07 | XMS_ITS | Encounter Summary ---
Author Organization [employer] Address [address] [facility] [address] [place] [address] Care Team Providers Care Aircraft Riveter Name Role Phone Lasha Marrufo MD Primary Care Provide r Farzad Sandhu MD Unavailable [phone] Encounter Details Date Type Department Care Team ([facility] st Contact Info) Description 10/31/2024 Results Follow-Up [facility] [address] [place] [address] Lasha Marrufo MD [address] [place] [address] SANDEEP Screen,IFA, with Reflex to Titer and Pattern Social History Tobacco Use Types Packs/Day Years [...] as of this encounter Miscellaneous Notes * Result Encounter Note - Lasha Jara MD - 10/31/2024 1:29 PM EDT Please fax labs to Office Equipment Mechanic and schedule appointment documented in this encounter Plan of Treatment Upcoming Encounters Date Type Department Care Team (Late st Contact Info) Description 12/10/2024 1:15 PM EDT Office Visit [facility] [address] [place] [phone] Lasha Marrufo MD [address] [place] [address] 01/28/2025 3:00 PM EDT Office Visit [facility] [address] [place] [address] Lasha Marrufo MD [address] [place] [address] documented as of this encounter Goals Goal [...] documented as of this encounter Care Teams Aircraft Riveter Relationship Specialty Start Date End Date Lasha Marrufo MD [address] [place] [address] PCP - General Internal Medicine 12/25/13 Farzad Sandhu MD [address] [place] [address] Cardiology 11/08/24 documented as of this encounter
== END 2024-11-26 11:31 | disposition home or self-care (01) ==
LOC: HO.HWS 11:10
PROVIDERS: PCP Internal Medicine; Visit Provider Obstetrics & Gynecology
DX: R10.2 Pelvic and perineal pain (principal)
CPT/HCPCS: 99213

== ENCOUNTER → 2024-11-26 11:10 | Outpatient (BNVA) | payer MEDICAID, SELFPAY | PROVIDERS: PCP Internal Medicine; Visit Provider Obstetrics & Gynecology | DX: R10.2 Pelvic and perineal pain (principal) | CPT/HCPCS: 99212 ==

== ENCOUNTER 2024-12-10 13:45 | Outpatient (REF) | payer MEDICAID, SELFPAY ==
--- OUTSIDE RECORDS SUMMARY | 2023-10-19 10:55 | XMS_ITS ---
Author Organization [facility] Address [address] [place] [phone] Care Team Providers Care Police Aide Name Role Phone Mirella Jara MD, Lasha Primary Care Provide r Medardo Ortega Jr Encounters Encounter Location Date Provider Diagnosis [facility] [address] [facility] [address] [place] [phone] 10/19/2023 Medardo Delgado Jr Plan Of Treatment Next Appt Details Provider Name:Medardo vallecillo Jr, 08/14/2025 03:35:00 PM, [address] [facility], [address], [place], [address], Progress Notes * WATERSBRIANSETHOB:03/23/19 62 (64 yo F)Acc No.[id number]:10/19/2023 Progress Notes Patient: YUAN TORRES Provider: oJsh Delgado MD :1960 A ge:63 Y S ex:Female Date:10/19/2023 Address:[address] [place] [address] [place] Pcp:Lasha holcomb MD Subjective: * Chief Complaints: [...] 10/19/2023 Generated for Deb kay/Hunter/Rama on: 0 12/10/2024 04:17 PM EDT
--- OUTSIDE RECORDS SUMMARY | 2024-04-02 06:20 | XMS_ITS ---
Author Organization [facility] Address [address] [place] [address] [place] [phone] Care Team Providers Care Exhaust Machine Operator Name Role Phone Mirella Jara MD, Lasha Primary Care Provide r Medardo Ortega Jr [phone] REASON FOR VISIT abn ugi series Encounters Encounter Location Date Provider Diagnosis [facility] [place] [address] [place] [id number] 04/02/2024 Medardo Delgado Jr Abnormal UGI series R93.3 Assessments Encounter Date Diagnosis (ICD Code) Assessment Notes Treatment Notes Treatment Clinical Notes Section Notes 04/02/2024 Abnormal UGI series (ICD-10 - R93.3) Plan Of Treatment Next Appt Details Provider Name:Medardo vallecillo Jr, 08/14/2025 03:35:00 PM, [address] [place] [address], Suite [facility], [place], [address], Progress Notes * FRANTZ WATERSOB:[birth year] (64 yo F)Acc No.[id number]:04/02/2024 EGD/MAC Patient: Ajit QUINONESMARIFER YUAN Provider: Josh Delgado MD :1960 A ge:64 Y S ex:Female Date:04/02/2024 Address:[address] [place], [place] [phone] Pcp:Lasha holcomb MD Subjective: * Chief Complaints: [...] 1 Generated for Deb kay/Hunter/Jorgeransmitting on: 0 12/10/2024 10:38 AM EDT
--- OUTSIDE RECORDS SUMMARY | 2024-12-05 23:59 | XMS_ITS | Continuity of Care Document ---
Author Organization [facility] Address [address] [place] [address], [address] d Floor, [address] [place] [phone]- Care Team Providers Care Retail Zone Specialist Name Role Phone Anna JAMESON, Lasha Martinez Primary Care Physi rishabh Encounter [facility] Date(s): 11/05/24 - 12/05/24 [facility] [address] [facility] 3rd Floor, [address] [place] [address] Attending Physician: Tameka Truong Admitting Physician: Tameka Truong Referring Physician: Tameka Truong Encounter Type: Triage Allergies, Adverse Reactions, Alerts Substance Criticality Severity Reaction Reaction Severity Status codeine Active pseudoephedrine Acti ve Immunizations Given and Recorded Vaccine Date Status Refusal Reason pneumococcal 23-valent vaccine 07/01/14 Given Medications Ajovy Autoinjector 225 mg/1.5 mL subcutaneous solution = 225 mg, Subcutaneous Injection, Every 28 days, # 1 kit, 5 Refills, Maintenance, 09/26/24 10:09:00 PM EDT, [facility], Partial fill upon patient request if the prescription is fora schedule II opioid drug., 165.01, cm, 09/25/24 11:27:00 EDT, Height, 105, kg, 03/06/23 8:43:00 EST, Dry Weight Start Date: 09/26/24 Status: Ordered Medication Dispense Status: Completed Quantity: 1.0 Unit: kit Total Allowed Fills: 6 Fills Dispensed: 0 aspirin 81 mg oral tablet 1 tablet = 81 mg, By Mouth, Daily, # 30 tablet, 0 Refills, Maintenance, 12/14/15 2:43:02 AM EDT, Tablet Start Date: 12/14/15 Status: Ordered Medication Dispense Status: Completed Quantity: 30.0 Unit: tablet Total Allowed Fills: 1 Fills Dispensed: 0 cyclobenzaprine 5 mg oral tablet 1 tablet, By Mouth, Daily at bedtime, PRN NEEDED FOR MUSCLE SPASMS, # 30 tablet, 1 Refills, Maintenance, 11/24/23 3:37:00 PM EDT, [facility], 165.01, cm, 11/29/22 16:33:00 EDT, Height, 105, kg, 03/06/23 8:43:00 EST, Dry Weight Start Date: 11/24/23 Status: Ordered Medication Dispense Status: Completed Quantity: 30.0 Unit: tablet Total Allowed Fills: 1 Fills Dispensed: 0 Doc-Q-Lace sodium 100 mg oral capsule 1 capsule = 100 mg, By Mouth, 2 times a day, PRN for constipation, # 20 capsule, 0 Refills, Maintenance, 07/07/16 9:25:58 AM EDT, Capsule Start Date: 07/07/16 Status: Ordered Medication Dispense Status: Completed Quantity: 20.0 Unit: capsule Total Allowed Fills: 1 Fills Dispensed: [address] 60mg cap duloxetine hcl DR 60mg cap, Refills 0, Maintenance, 11/09/18 2:05:39 PM EDT, Compound Start Date: 11/09/18 Status: Ordered Medication Dispense Status: Completed Total Allowed Fills: 1 Fills Dispensed: 0 famotidine 40 mg oral tablet TAKE 1 TABLET BY MOUTH TWICE DAILY IN THE MORNING AND IN THE EVENING Start Date: 08/15/22 Status: Ordered Medication Dispense Status: Completed Total Allowed Fills: 1 Fills Dispensed: 0 furosemide 40 mg oral tablet 40 mg, 1, tablet, By Mouth, Daily, # 30 tablet, Refills 0, Maintenance, 04/18/23 9:56:00 AM EST, Partial fill upon patient request if the prescription is for a schedule II opioid drug. Start Date: 04/18/23 Status: Ordered Medication Dispense Status: Completed Quantity: 30.0 Unit: tablet Total Allowed Fills: 1 Fills Dispensed: 0 HealthyLax = 17 Gm, By Mouth, Daily, 0 Refills, Maintenance, 07/07/16 9:29:22 AM EDT Start Date: 07/07/16 Status: Ordered Medication Dispense Status: Completed Total Allowed Fills: 1 Fills Dispensed: 0 HydrALAZINE = 50 mg, By Mouth, 3 times a day, 0 Refills, Maintenance, 06/30/14 11:00:43 PM EDT Start Date: 06/30/14 Status: Ordered Medication Dispense Status: Completed Total Allowed Fills: 1 Fills Dispensed: 0 levothyroxine 75 mcg (0.075 mg) oral tablet 1 tablet = 75 mcg, By Mouth, Daily, # 30 tablet, 0 Refills, Maintenance, 06/30/14 11:04:03 PM EDT, Tablet Start Date: 06/30/14 Status: Ordered Medication Dispense Status: Completed Quantity: 30.0 Unit: tablet Total Allowed Fills: 1 Fills Dispensed: 0 losartan 100 mg oral tablet 1 tablet = 100 mg, By Mouth, Daily, # 30 tablet, 0 Refills, Maintenance, 12/14/15 2:49:26 AM EDT, Tablet Start Date: 12/14/15 Status: Ordered Medication Dispense Status: Completed Quantity: 30.0 Unit: tablet Total Allowed Fills: 1 Fills Dispensed: 0 MetFORMIN (Eqv-Glucophage XR) 500 mg oral tablet, extended release TAKE 2 TABLETS BY MOUTH TWICE DAILY IN THE MORNING AND EVENING Start Date: 08/15/22 Status: Ordered Medication Dispense Status: Completed Total Allowed Fills: 1 Fills Dispensed: 0 metoprolol 100 mg oral tablet, extended release 100 mg, 1, tablet, By Mouth, Daily, # 30 tablet, Refills 0, Maintenance, 12/14/15 2:47:01 AM EDT Start Date: 12/14/15 Status: Ordered Medication Dispense Status: Completed Quantity: 30.0 Unit: tablet Total Allowed Fills: 1 Fills Dispensed: 0 Nitrostat 0.4 mg sublingual tablet 1 tablet = 0.4 mg, Sublingual, Every 5 minutes, PRN for chest pain, # 100 tablet, 0 Refills, Maintenance, 07/07/16 9:31:56 AM EDT, Tablet Start Date: 07/07/16 Status: Ordered Medication Dispense Status: Completed Quantity: 100.0 Unit: tablet Total Allowed Fills: 1 Fills Dispensed: 0 proctosol hc 2.5% proctosol hc 2.5%, Refills 0, Maintenance, 07/07/16 9:28:33 AM EDT, Compound Start Date: 07/07/16 Status: Ordered Medication Dispense Status: Completed Total Allowed Fills: 1 Fills Dispensed: 0 Proventil HFA 90 mcg/inh inhalation aerosol with adapter 2, puffs, Inhalation, 4 times a day, Refills 0, Maintenance, 07/07/16 9:30:47 AM EDT Start Date: 07/07/16 Status: Ordered Medication Dispense Status: Completed Total Allowed Fills: 1 Fills Dispensed: 0 rosuvastatin 40 mg oral tablet 1 tablet = 40 mg, By Mouth, Daily, # 30 tablet, 0 Refills, Maintenance, 12/14/15 2:44:53 AM EDT, Tablet Start Date: 12/14/15 Status: Ordered Medication Dispense Status: Completed Quantity: 30.0 Unit: tablet Total Allowed Fills: 1 Fills Dispensed: 0 Singulair 10 mg oral tablet 1 tablet = 10 mg, By Mouth, Daily in PM, # 30 tablet, 0 Refills, Maintenance, 06/30/14 11:01:32 PM EDT, Tablet Start Date: 06/30/14 Status: Ordered Medication Dispense Status: Completed Quantity: 30.0 Unit: tablet Total Allowed Fills: 1 Fills Dispensed: 0 SudoGest 30 mg oral tablet 1 tablet = 30 mg, By Mouth, Every 6 hours, 0 Refills, Maintenance, 07/07/16 9:30:24 AM EDT Start Date: 07/07/16 Status: Ordered Medication Dispense Status: Completed Total Allowed Fills: 1 Fills Dispensed: 0 topiramate 50 mg oral tablet 2 tablet, By Mouth, Daily at bedtime, # 180 tablet, 3 Refills, Maintenance, 06/04/24 10:54:00 PM EST,[facility], 165.01, cm, 11/29/22 16:33:00 EDT, Height, 105, kg, 03/06/23 8:43:00 EST, Dry Weight Start Date: 06/04/24 Status: Ordered Medication Dispense Status: Completed Quantity: 180.0 Unit: tablet Total Allowed Fills: 1 Fills Dispensed: 0 trospium chloride 20 mg oral tablet 1 tablet, By Mouth, Daily at bedtime, # 30 tablet, 5 Refills, Maintenance, 08/28/24 4:19:00 PM EDT, [facility], 165.01, cm, 11/29/22 16:33:00 EDT, Height, 105, kg, 03/06/23 8:43:00EST, Dry Weight Start Date: 08/28/24 Status: Ordered Medication Dispense Status: Completed Quantity: 30.0 Unit: tablet Total Allowed Fills: 1 Fills Dispensed: 0 Trulicity Pen 0.75 mg/0.5 mL subcutaneous solution = 0.75 mg, INJECT ONE PEN (=0.75MG) SUBCUTANEOUSLY ONCE A WEEK DIRECTED Start Date: 08/15/22 Status: Ordered Medication Dispense Status: Completed Total Allowed Fills: 1 Fills Dispensed: 0 verapamil 300 mg oral capsule, extended release 1 capsule = 300 mg, By Mouth, Daily at bedtime, # 30 capsule, 0 Refills, Maintenance, 12/14/15 2:48:22 AM EDT, CR Capsule Start Date: 12/14/15 Status: Ordered Medication Dispense Status: Completed Quantity: 30.0 Unit: capsule Total Allowed Fills: 1 Fills Dispensed: 0 Problem List Condition Confirmation Course Effective Dates Status Health St atus Informant Obese class II Confirmed Active Social History Social History Type Response Smoking Status Current every day sm fabian entered on: 06/30/14 Sex Sex Representation Female (finding) Imaging * Event Display: MRI Head, Non- BH Authored Date: Patient Care team information Care Team Personnel Name: Anna JAMESON, Lasha Martinez Position: [facility] Outreach Member Role: PCP Address: [address] [place] [phone]- Telecom: Name: Neto Jones NP Position: [facility] PCO Associate Professional Member Role: Primary Care Nurse Address: [address] [place] [phone]- Telecom: Care Team Related Persons Name: WILL WATERS Insurance Providers Guarantor name: YUAN WATERS Health Plan Information #: 1 Payer: [employer] Payer Identifier: NA Member Number: [id number] Group Number: [id number] Subscriber Identifier: NA Relationship to Subscriber: self Coverage Type: MEDICAID Coverage Verification Date: SOY Telecom: NA Address: NA
--- NOTE | ~2024-12-10 | XR_ITS ---
EXAMINATION: XR CHEST CLINICAL INFORMATION: Pneumonia, cigarette dependence COMPARISON: November 20, 2024 TECHNIQUE: 2 views of the chest were obtained. FINDINGS: Right upper lobe opacity abutting the minor fissure has resolved since the prior examination. Subtle linear densities in the left lower lung zone are most consistent with subsegmental atelectasis. Increasing linear density in the medial right lung base also likely represents mildly increased subsegmental atelectasis and scarring. Mild cardiomegaly is again noted. Atherosclerotic calcification is evident in the aortic arch. XR/XR chest 2V IMPRESSION: Increased mild basilar atelectasis. Interval resolution of suspected right upper lobe pneumonia. Electronically signed by: Daryl Maxwell MD 12/10/2024 02:39 PM EDT
--- OUTSIDE RECORDS SUMMARY | 2024-12-10 13:15 | XMS_ITS | Encounter Summary ---
Author Organization [employer] Address [address] [place] [address] [address] [place] [address] Care Team Providers Care Wellness Instructor Name Role Phone Lasha Marrufo MD Primary Care Provide r Farzad Sandhu MD Unavailable [phone] Encounter Details Date Type Department Care Team (Late st Contact Info) Description 12/10/2024 1:15 PM EDT Office Visit [facility] [address] [place], [place] [phone] Lasha Marrufo MD [address] [place] [address] Type 2 diabetes mellitus without complication, without long-term current use of insulin (CMS/HCC) (Primary Dx); Pelvic pain; Smoker; Longstanding persistent atrial fibrillation (CMS/HCC); Heart murmur; Preventative health care; Positive SANDEEP (antinuclear antibody) Social History Tobacco Use Types Packs/Day Years [...] Sign Reading Time Taken Comments Blood Pressure 132/80 12/10/2024 1:11 PM EDT Pulse 73 12/10/2024 1:11 PM EDT Temperature 36.1 C (97 F) 12/10/2024 1:11 PM EDT Respiratory Rate 20 12/10/2024 1:11 PM EDT Oxygen Saturation 99% 12/10/2024 1:11 PM EDT Inhaled Oxygen Concentration - - Weight 104 kg (230 lb 3.2 oz) 12/10/2024 1:11 PM EDT Height 167.6 cm (5' 6 ) 12/10/2024 1:11 PM EDT Body Mass Index 37.16 12/10/2024 1:11 PM EDT documented in this encounter Progress Notes * Lasha Jara MD - 12/10/2024 1:15 PM EDT SUBJECTIVE Arianna Pineda is a 64 y.o. female who presents for No chief complaint on file.. Arianna Pineda, 64 years Arrhythmia - Previously noted murmur, echocardiogram showed arrhythmia - Cardiology evaluation performed, bus monitor placed Pneumonia - Hospitalized for pneumonia, chest X-ray confirmed diagnosis Smoking - Continues to smoke Autoimmune Evaluation - Antinuclear antibody (SANDEEP) test repeatedly positive - Under rheumatology evaluation for possible inflammatory arthritis Hepatic Steatosis - Abdominal ultrasound 2 months ago showed fatty liver Diabetes - Reports improved blood sugar control Recent Laboratory Results - Recent blood tests: normal hemoglobin, normal liver and kidney function, normal cholesterol Diabetes She presents for her follow-up diabetic visit. She has type 2 diabetes mellitus. Review of Systems Allergies[1] OBJECTIVE Vitals: 12/10/24 1311 BP: 132/80 BP Location: Left arm Patient Position: Sitting BP Cuff Size: Adult Pulse: 73 Resp: 20 Temp: 97 ??F (36.1 ??C) TempSrc: Oral SpO2: 99% Weight: 230 lb 3.2 oz (104 kg) Height: 5' 6 (1.676 m) Physical Exam Vitals reviewed. Constitutional: Appearance: Normal appearance. HENT: Head: Normocephalic and atraumatic. Right Ear: External ear normal. Left Ear: External ear normal. Nose: Nose normal. Mouth/Throat: Mouth: Mucous membranes are moist. Eyes: Conjunctiva/sclera: Conjunctivae normal. Cardiovascular: Rate and Rhythm: Normal rate and regular rhythm. Pulmonary: Effort: Pulmonary effort is normal. Breath sounds: Normal breath sounds. Skin: General: Skin is warm. Neurological: Mental Status: She is alert. Mental status is at baseline. Assessment/Plan Problem List Items Addressed This Visit Type 2 diabetes mellitus without complication (CMS/HCC) - Primary Pt here for a f/u regarding her Diabetes DM controlled Hgb A1c 12/10/2024: 6.1 Pt is currently on Metformin XR 500 mg 2 tabs po BID and Trulicity 0.75 q week Eye exam : 05/31/2024 [facility] Microalbumin ordered Pt on an LEXII inhibitor/ARB Foot check risk if zero On Asa 81 mg po daily Plan: Continue current regimen Pt advised to: adhere to diabetic diet check your blood sugars regularly check your feet on a daily basis. f/u with me in 3 months Relevant Orders POCT Glucose (Completed) POCT Hgb A1c (Completed) Pelvic pain Patient with c/o pelvic pain and recurrent Bacterial vaginosis. Pt requesting to see a Cooler Operator Pelvic US 11/08/2024 was normal Seen by ECONOMIC ANALYST 11/26/2024 Dr Ochoa, did not find anything specific Smoker Still smoking 1-15 cigarrettes Pt recently seen in the ER 11/20/2024 and was diagnosed with PNA Plan: Repeat Chest x-ray to ensure resolution Interested in Chantix Relevant Medications varenicline (Chantix) 0.5 MG tablet Other Relevant Orders XR Chest 2 Views Atrial fibrillation (CMS/HCC) Newly diagnosed Under the care of Cardiology last note 11/18/2024 On Eliquis Heart murmur Recent ECHO showed: onclusions: - The left ventricular systolic function is normal. The calculated ejection fraction is 60% by biplane method. - The left atrium is severely dilated. - There is mild calcification of the aortic valve. - There is moderate mitral annular calcification. - There is mild dilatation of the ascending aorta measuring 4.00 cm. Under the care of Cardiology now Preventative health care Mammogram: 08/29/2024 Normal Pap Smear: NL 09/2021 will need a repeat [id number] Colonoscopy: 06/2019 Dr Delgado, Tubular adenoma Vaccines: Td Pt claims she had one in [place] in 2013. Positive SANDEEP (antinuclear antibody) Pt's SANDEEP positive Referred to Rheumatology This note was drafted using Ambient (AI) technology. The patient/patient's guardian has been informed and has consented to the use of this technology: Yes Future Appointments Date Time Provider Department Center 01/28/2025 3:00 PM Lasha Jara MD MEDICINE [facility] [1] Allergies Allergen Reactions Acetaminophen Codeine Unknown Pseudoephedrine Seafood [Shellfish Allergy] documented in this encounter Miscellaneous Notes * Assessment & Plan Note - Lasha Jara MD - 12/10/2024 1:27 PM EDT Associated Problem(s): Positive SANDEEP (antinuclear antibody) Pt's SANDEEP positive Referred to Rheumatology * Assessment & Plan Note - Lasha Jara MD - 12/10/2024 1:26 PM EDT Associated Problem(s): Preventative health care Mammogram: 08/29/2024 Normal Pap Smear: NL 09/2021 will need a repeat [id number] Colonoscopy: 06/2019 Dr Delgado, Tubular adenoma Vaccines: Td Pt claims she had one in [place] in 2013. * Assessment & Plan Note - Lasha Jara MD - 12/10/2024 1:25 PM EDT Associated Problem(s): Type 2 diabetes mellitus without complication (CMS/HCC) Pt here for a f/u regarding her Diabetes DM controlled Hgb A1c 12/10/2024: 6.1 Pt is currently on Metformin XR 500 mg 2 tabs po BID and Trulicity 0.75 q week Eye exam : 05/31/2024 [facility] Microalbumin ordered Pt on an LEXII inhibitor/ARB Foot check risk if zero On Asa 81 mg po daily Plan: Continue current regimen Pt advised to: adhere to diabetic diet check your blood sugars regularly check your feet on a daily basis. f/u with me in 3 months * Assessment & Plan Note - Lasha Jara MD - 12/10/2024 1:25 PM EDT Associated Problem(s): Heart murmur Recent ECHO showed: onclusions: - The left ventricular systolic function is normal. The calculated ejection fraction is 60% by biplane method. - The left atrium is severely dilated. - There is mild calcification of the aortic valve. - There is moderate mitral annular calcification. - There is mild dilatation of the ascending aorta measuring 4.00 cm. Under the care of Cardiology now * Assessment & Plan Note - Lasha Jara MD - 12/10/2024 1:23 PM EDT Associated Problem(s): Atrial fibrillation (CMS/HCC) Newly diagnosed Under the care of Cardiology last note 11/18/2024 On Eliquis * Assessment & Plan Note - Lasha Jara MD - 12/10/2024 1:21 PM EDT Associated Problem(s): Smoker Still smoking 1-15 cigarrettes Pt recently seen in the ER 11/20/2024 and was diagnosed with PNA Plan: Repeat Chest x-ray to ensure resolution Interested in Chantix * Assessment & Plan Note - Lasha Jara MD - 12/10/2024 1:19 PM EDT Associated Problem(s): Pelvic pain Patient with c/o pelvic pain and recurrent Bacterial vaginosis. Pt requesting to see a Cooler Operator Pelvic US 11/08/2024 was normal Seen by ECONOMIC ANALYST 11/26/2024 Dr Ochoa, did not find anything specific documented in this encounter Plan of Treatment Upcoming Encounters Date Type Department Care Team (Late st Contact Info) Description 02/18/2025 1:15 PM EST Office Visit [facility]ICINE [address] [place] [address] Lasha Marrufo MD [address] [place] [address] documented as of this encounter Goals Goal Patient Goal Type Associated Problems Recent Progress Patient-Stated? Author Smoking cessation General No Willa Chaparro Help patient manage nicotine dependency General No Willa Chaparro documented as of this encounter Procedures Procedure Name Priority Date/Time Associated Diagnosis Comments XR CHEST 2 VIEWS Routine 12/10/2024 2:29 PM EDT Smoker POCT GLYCATED HEMOGLOBIN, TOTAL Routine 12/10/2024 1:12 PM EDT Type 2 diabetes mellitus without complication, without long-term current use of insulin (CMS/HCC) POCT GLUCOSE Routine 12/10/2024 1:11 PM EDT Type 2 diabetes mellitus without complication, without long-term current use of insulin (CMS/[facility]) documented in this encounter Results * XR Chest 2 Views (12/10/2024 2:29 PM EDT) Anatomical Region Laterality Modality Chest Radiographic Melody ging 12/10/2024 2:29 PM EDT Narrative 12/10/2024 2:41 PM EDT [address] [address] XRay Report Signed Patient: Arianna Pineda MR#: [id number] : 1960 Acct:[id number] Age/Sex: 64 / F ADM Date: 12/10/24 Loc: HO.HHCX Attending Dr: Lasha Castillo MD Ordering Physician: Lasha Castillo MD Date of Service: 12/10/24 Procedure(s): XR chest 2V Accession Number(s): [id number] cc: Lasha Castillo MD Reason for Exam: Pneumonia EXAMINATION: XR CHEST CLINICAL INFORMATION: Pneumonia, cigarette dependence COMPARISON: November 20, 2024 TECHNIQUE: 2 views of the chest were obtained. FINDINGS: Right upper lobe opacity abutting the minor fissure has resolved since the prior examination. Subtle linear densities in the left lower lung zone are most consistent with subsegmental atelectasis. Increasing linear density in the medial right lung base also likely represents mildly increased subsegmental atelectasis and scarring. Mild cardiomegaly is again noted. Atherosclerotic calcification is evident in the aortic arch. XR/XR chest 2V IMPRESSION: Increased mild basilar atelectasis. Interval resolution of suspected right upper lobe pneumonia. Electronically signed by: Daryl Maxwell MD 12/10/2024 02:39 PM EDT RP Dictated By: Daryl Maxwell MD Signed By: <Electronically signed by Daryl Maxwell MD in OV> 12/10/24 1439 DD/ 1429 TD/TT: 12/10/24 1430 Sales Stock Associate: Procedure Note Donotuseinterpreter, Image - 12/10/[address] [address] XRay Report Signed Patient: Arianna Pineda EMR#: [id number] : 1960cct:[id number] Age/Sex: 64 / FADM Date: 12/10/24 Loc: HO.HHCX Attending Dr: Lasha Castillo MD Ordering Physician: Lasha Castillo MD Date of Service: 12/10/24 Procedure(s): XR chest 2V Accession Number(s): [id number] cc: Lasha Castillo MD Reason for Exam: Pneumonia EXAMINATION: XR CHEST CLINICAL INFORMATION: Pneumonia, cigarette dependence COMPARISON: November 20, 2024 TECHNIQUE: 2 views of the chest were obtained. FINDINGS: Right upper lobe opacity abutting the minor fissure has resolved since the prior examination. Subtle linear densities in the left lower lung zone are most consistent with subsegmental atelectasis. Increasing linear density in the medial right lung base also likely represents mildly increased subsegmental atelectasis and scarring. Mild cardiomegaly is again noted. Atherosclerotic calcification is evident in the aortic arch. XR/XR chest 2V IMPRESSION: Increased mild basilar atelectasis. Interval resolution of suspected right upper lobe pneumonia. Electronically signed by: Daryl Maxwell MD 12/10/2024 02:39 PM EDT RP Dictated By: Daryl Maxwell MD Signed By: <Electronically signed by Daryl Maxwell MD in OV> 12/10/24 1439 DD/ 1429 TD/TT: 12/10/24 1430 Sales Stock Associate: Lasha Jara MD IMG XR PROCEDURES Fin al Result * (ABNORMAL) POCT Hgb A1c (12/10/2024 1:12 PM EDT) Hemoglobin A1C 6.1(A) 4.0 - 5.7 % QC Media Lot # [id number] Lot# Expiration Date ,027 Blood 12/10/2024 1:12 PM EDT Lasha Jara MD POINT OF CARE TEST EN TER/EDIT ORDERABLES Final Result * POCT Glucose (12/10/2024 1:11 PM EDT) Glucose Blood, POC 100 60 - 200 mg/dL QC Media Lot # [id number] Lot# Expiration Date 2591,948 Blood Capillary blood specimen / Unknown 12/10/2024 1:11 PM EDT Lasha Jara MD POINT OF CARE TEST EN TER/EDIT ORDERABLES Final Result documented in this encounter Visit Diagnoses Diagnosis Type 2 diabetes mellitus without complication, without long-term current use of insulin ([facility]/HCC)- Primary Pelvic pain Smoker Tobacco use disorder Longstanding persistent atrial fibrillation ([facility]) Heart murmur Undiagnosed cardiac murmurs Preventative health care Routine general medical examination at a health care facility Positive SANDEEP (antinuclear antibody) Other and unspecified nonspecific immunological findings documented in this encounter Additional Health Concerns Assessment Noted Time PHQ-9 Depression Total Score: 9 09/06/19 25 2:54 PM EDT documented as of this encounter Care Teams Wellness Instructor Relationship Specialty Start Date End Date Lasha Marrufo MD [address] [place] [address] PCP - General Internal Medicine 12/25/13 Farzad Sandhu MD [address] [place] [address] Cardiology 11/08/24 documented as of this encounter
--- OUTSIDE RECORDS SUMMARY | 2024-12-10 16:18 | XMS_ITS | Encounter Summary ---
Author Organization [employer] Address [address] [place] [address] [address] [place] [address] Care Team Providers Care Bottle Blower Name Role Phone Lasha Marrufo MD Primary Care Provide r Farzad Sandhu MD Unavailable [phone] Reason for Visit * Reason Comments Med Refill Encounter Details Date Type Department Care Team (Late st Contact Info) Description 03/09/2022 Refill [facility] [address] [place] [address] [phone] Lasha Marrufo MD [address] [place] [address] [phone] Acute migraine (Primary Dx) Social History Tobacco [...] Description 02/18/2025 1:15 PM EST Office Visit [facility]ICINE [address] [place] [address] [phone] Lasha Marrufo MD [address] [place] [address] [phone] documented as of this encounter Visit Diagnoses Diagnosis Acute migraine- Primary documented in this encounter Care Teams Bottle Blower Relationship Specialty Start Date End Date Lasha Marrufo MD [address] [place] [address] PCP - General Internal Medicine 12/25/13 Farzad Sandhu MD [address] [place] [address] Cardiology 11/08/24 documented as of this encounter
--- OUTSIDE RECORDS SUMMARY | 2024-12-10 16:18 | XMS_ITS | Patient Health Record ---
Author Organization [facility] Address [address] [place] [address] Care Team Providers Care Die Maker Bench Stamping Name Role Phone Mirella Jara MD, Lasha Primary Care Provide Medardo Thornton Jr Unavailable Allergies Allergen (clinical drug ingredient) Drug/Non Drug Allergy documented on EMR Reaction Allergy Type Onset Date Status codeine Codeine Sulfate Unknown Drug Allergy A ctive Results Component Value Reference Range Notes Complete Blood Count no Diff Reviewed date:04/02/2024 02:01:30 PM Interpretation: Performing Lab:[facility], [address] [place] [address] Notes/Report: White Blood Count 8.0 4.8-10.8 X10*3/uL [...] 02:01:14 PM Interpretation: Performing Lab:[facility], [address] [place] [phone] Notes/Report: Bilirubin Total 0.2 0.0-1.0 mg/dL Bilirubin Direct < 0.2 0.0-0.5 mg/dL Aspartate Amino Transferase 21 5-31 U/L Alanine Aminotransferase 22 0-31 U/L Total Protein 7.7 6.5-8.0 g/dL Albumin Level 4.1 3.5-5.0 g/dL Alkaline Phosphatase 128 39-117 U/L IRON PROFILE Reviewed date:04/02/2024 02:01:24 PM Interpretation: Performing Lab:[facility], [address] [place] [phone] Notes/Report: Iron 41 30-160 mcg/dL Total Iron Binding Capacity 335 228-428 mcg/dL Percent Iron Saturation 12 15-50 % Unsaturated Iron Binding 294 Ferritin Reviewed date:04/02/2024 02:01:49 PM Interpretation: Performing Lab:[facility], [address] [place] [phone] Notes/Report: Ferritin 11 10-250 ng/mL Liver Fibrosis Pnl Reviewed date:04/08/2024 08:30:50 AM Interpretation: Performing Lab:[facility], [address] [place] [phone] Notes/Report: Liver Fibrosis Score 0.19 Liver Fibrosis [...] a>0.62 and a<=1.00 : A3 (severe activity) NLJ-Fwkrc-8-Macroglobuli n 219 106-279 mg/dL FIB-Haptoglobin 217 43-212 mg/dL FIB-Apolipoprotein A1 153 101-198 mg/dL FIB-Total Bilirubin 0.2 0.2-1.2 mg/dL FIB-GGT 119 3-65 U/L FIB-ALT 14 6-29 U/L Reference ID [id number] Footnote SEE NOTE The reliability of results is dependent on compliance with the preanalytical and analytical conditions recommended by [employer]. The tests have to be deferred for: [...] The performance characteristics have been determined by [facility]. It has not been cleared or approved by the U.S. Food and Drug Administration. Performance characteristics refer to the analytical performance of the test. [employer]aworks, the associated logo, [employer] and all associated [employer] givens are the registered trademarks of [employer]. All third alliance party givens - (R) and (TM) - are the property of their respective owners. (C) [id number] [employer]. All rights reserved. THIS TEST WAS PERFORMED AT: [facility]/[facility] [address] [place] [address] TRAVIS BOO MD,PHD,TRINY SANDEEP Reflex Titer and Pattern Reviewed date:04/05/2024 02:03:11 PM Interpretation: Performing Lab:[facility], [address] [place] [phone] Notes/Report: Anti Nuclear Antibody Screen NEGATIVE NEGATIVE [...] Negative International Consensus on SANDEEP Patterns (https://doi.org/10.151 5/mtwm-9999-0136) For additional information, please refer to http://education.NeST Group/faq/FAQ1 24 (This link is being provided for informational/ educational purposes only.) THIS TEST WAS PERFORMED AT: [facility] [address] [place] [address] JEAN PAUL LEWIS MD Anti Nuclear Antibody Titer TNP Anti Nuclear Antibody Pattern TNP SANDEEP Titer 2 TNP SANDEEP Pattern 2 TNP SANDEEP Titer 3 TNP SANDEEP Pattern 3 TNP Mitochondrial Antibody Reviewed date:04/09/2024 03:01:22 PM Interpretation: Performing Lab:[facility], [address] [place] [phone] Notes/Report: Mitochondrial Antibodies NEGATIVE NEGATIVE The specimen was negative for cytoplasmic antibodies, however additional staining was observed suggesting the presence of Antinuclear Antibodies. Consider requesting order code 249, SANDEEP Screen, IFA with Reflex to Titer and Pattern, or order code [id number], SANDEEP Screen, IFA w/reflex Titer/Pattern, and Reflex to Multiplex 11 Ab Mercer, if clinically indicated. THIS TEST WAS PERFORMED AT: [facility] [address] [address] JEAN PAUL LEIWS MD Mitochondrial Ab Titer TNP Smooth Muscle Antibody Reviewed date:04/09/2024 03:01:16 PM Interpretation: Performing Lab:[facility], [address] [place] [phone] Notes/Report: Smooth Muscle Antibody 25 <20 U [...] type 1. THIS TEST WAS PERFORMED AT: [employer]/[address] [address] SIGRID MOLINA MD,PHD Hepatitis A,B,C Profile Reviewed date:04/02/2024 02:01:41 PM Interpretation: Performing Lab:[facility], [address] [place] [phone] Notes/Report: Hepatitis A Antibody IgM Nonreactive Nonreactive [...] 01:59:23 PM Interpretation: Performing Lab:[facility], [address] [place] [phone] Notes/Report: Glucose, Whole Blood 106 60-115 mg/dL METER # : [id number] Pathology Reviewed date:04/05/2024 03:24:48 PM Interpretation: Performing Lab:[facility], [address] [place] [phone] Notes/Report: Complete Blood Count Auto Di ff Reviewed date:10/24/2024 08:44:04 AM Interpretation: Performing Lab:[facility], [address] [place] [phone] Notes/Report: White Blood Count 7.8 4.8-10.8 X10*3/uL [...] 08:39:47 AM Interpretation: Performing Lab:[facility], [address] [place] [phone] Notes/Report: Sodium 143 135-145 mmol/L Potassium 3.9 [...] 08:39:21 AM Interpretation: Performing Lab:[facility], [address] [place] [phone] Notes/Report: Triglycerides 147 <150 mg/dL Desirable Triglyceride: [...] 05:07:02 PM Interpretation: Performing Lab:[facility], [address] [place] [phone] Notes/Report: Anti Nuclear Antibody Screen POSITIVE NEGATIVE SANDEEP IFA is a first line screen for detecting the presence of up to approximately 150 autoantibodies in various autoimmune diseases. A positive SANDEEP IFA result is suggestive of autoimmune disease and reflexes to titer and pattern. Further laboratory testing may be considered if clinically indicated. For additional information, please refer to http://education.Ne[employer]/faq/FAQ1 77 (This link is being provided for informational/ educational purposes only.) Anti Nuclear Antibody Titer 1:1280 Reference Range <1:40 Negative 1:40-1:80 Low Antibody Level >1:80 Elevated Antibody Level Anti Nuclear Antibody Pattern Nuclear, Nucleolar Nucleolar pattern is associated with systemic sclerosis (scleroderma), systemic sclerosis/polymyositis overlap and Sjogren's syndrome. AC-8,9,10: Nucleolar International Consensus on SANDEEP Patterns (https://doi.org/10151 iinz-6040-4786) SANDEEP Titer 2 1:320 Reference Range <1:40 Negative 1:40-1:80 Low Antibody Level >1:80 Elevated Antibody Level SANDEEP Pattern 2 Nuclear, Homogeneous Homogeneous pattern is associated with systemic lupus erythematosus (SLE), drug-induced lupus and juvenile idiopathic arthritis. AC-1: Homogeneous International Consensus on SANDEEP Patterns (https://doi.org/10151 fejm-1980-7304) THIS TEST WAS PERFORMED AT: [facility] [address] [place] [address] JEAN PAUL LWEIS MD SANDEEP Titer 3 TNP SANDEEP Pattern 3 TNP US abdomen complete Reviewed date:10/24/2024 08:44:16 AM Interpretation: Performing Lab: Notes/Report: [place] [address] Ultrasound Report Signed Patient: Yuan Waters MR#: [id number] : 1960 Acct:[id number] Age/Sex: 64 / F ADM Date: 10/23/24 Loc: HO.US Attending Dr: Medardo Delgado MD Ordering Physician: Medardo Delgado MD Date of Service: 10/23/24 Procedure(s): US abdomen complete Accession Number(s): [id number] cc: Medardo Delgado MD; Lasha Castillo MD [...] OV> 10/23/24 0943 DD/ 0835 TD/TT: 10/23/2417 Field Artillery Officer: HIV Ab/Ag Reviewed date:10/24/2024 08:38:16 AM Interpretation: Performing Lab:[facility], [address] [place] [phone] Notes/Report: HIV AB/AG Nonreactive Nonreactive HIV-1 p24 [...] limit of detection of this assay. The [employer] HIV Ag/Ab Combo assay result and supplemental assay results should be interpreted in conjunction with the patient's clinical presentation, history and other laboratory results. If the results are inconsistent with clinical evidence, additional testing is suggested to confirm the result. Reason For Referral Referring Provider First Name Lasha Referring Provider Last Name Mirella perez Referring Provider Speciality Internal M edicine Referred Organization [facility] Referred Provider Medardo Delgado Jr Referred Address [address] [place] [address],[place] [address],[place], [place],[address],[place] Referred Provider Specialty Gastroentero logy General Notes Kelsi Christianson 2024 09:59:43 AM >requested a [facility] referral from [facility] for visit with dr akins on 08-29-24 [...] 200 MG TAKE 1 CAPSULE BY MO [facility] TWICE DAILY Oral for 30 Active Immunizations Vaccine Route Administration Date Status Comme nts Influenza Unknown 12/02/2018 Administered Influenza Unknown 01/15/2020 Administered Influenza Unknown 01/01/2022 Administered Influenza Unknown 08/31/2023 Refused Problems Problem Type SNOMED Code ICD Code Onset Dates Problem Status W/U Status Risk Notes Problem 76104615 Rectal bleeding (K62.5) Active confirmed Problem 53522697 Constipation (K59.00) Active confirmed Problem Gastroesophageal reflux disease (196982871) Gastroesophageal reflux disease (K21.9) Active confirmed Problem 181649435 Gastroesophageal reflux disease without esophagitis (K21.9) Active confirmed Problem 091259531 Fatty liver (K76.0) Active confirmed Problem 64288224 Hiatal hernia (K44.9) Active confirmed Problem 64667210 Dysphagia, unspecified type (R13.10) Active confirmed Problem 013621131 Abnormal UGI series (R93.3) Active confirmed Problem 025544619 Irritable bowel syndrome with constipation (K58.1) Active confirmed Problem 968677001 GERD without esophagitis (K21.9) Active confirmed Problem 098251871 LUQ pain (R10.12) Active confirmed Problem 719740754 LLQ pain (R10.32) Active confirmed Problem 785083593 Epigastric mass (R19.06) Active confirmed Vital Signs Blood pressure diastolic 77 mm Hg 08/29/2024 Height 66.5 in 08/29/2024 Blood pressure systolic 111 mm Hg 08/29/2024 Weight 225 lbs 08/29/2024 BMI 35.77 kg/m2 08/29/2024 Encounters Encounter Location Date Provider Diagnosis [facility] Outpatient [address] [place] [id number] 04/02/2024 Medardo Delgado Jr Abnormal UGI series R93.3 [facility] [address] [place] [id number] 03/14/2024 Medardo Delgado Jr Abnormal UGI series R93.3 ; Dysphagia, unspecified type R13.10 and Fatty liver K76.0 [facility] [address] [place] [phone] 08/29/2024 Medardo Delgado Jr Abdominal pain R10.9 ; Gastroesophageal reflux disease without esophagitis K21.9 and Constipation K59.00 [facility] [address] [place] [phone] 02/19/2024 Medardo Delgado Jr Gastroesophageal reflux disease without esophagitis K21.9 [facility] [address] [place] [phone] 02/21/2024 Medardo Delgado Jr [facility] [address] [place] [phone] 03/19/2024 Medardo Delgado Jr [facility] [address] [place] [phone] 04/02/2024 Medardo Delgado Jr [facility] [address] [place] [id number] 04/05/2024 Medardo Delgado Jr [facility] [address] [place] [phone] 10/24/2024 Medardo Delgado Jr [facility] [address] [place] [address] 10/30/2024 Medardo Delgado Jr Assessments Encounter Date [...] Maximus vallecillo Jr, 08/14/2025 03:35:00 PM, [address], [place], [address], Insurance Providers Payer Name Payer Address Payer Phone Subscriber Number Group Number Insured Name Patient Relationship to Insured Coverage Start Date Coverage End Date MEDICAID OF [facility] [address] [place] [address] [phone] [id number] YUAN LR Self - patient is the insured Medical (General) History Medical History History ICD Code hypertension obesity Hypothyroidism asthma arthritis SANDEEP + colonoscopy 06/26/19, 1 adenoma, five-yea r followup recommended Gastroesophageal reflux dise [facility], EGD/03/23, no Santos's esophagus or H. pylori.EGD 03/26, no H. pylori, Santos's esophagus, or celiac disease. Obstructive sleep apnea type II diabetes Surgical History Surgery Date(Month/Year) knee surgery-right cholecystectomy tubal ligation breast biopsy
--- OUTSIDE RECORDS SUMMARY | 2024-12-10 16:18 | XMS_ITS | Encounter Summary ---
Author Organization [employer] Address [address] [place] [address] [address] [place] [address] Care Team Providers Care Senior Oracle Pl Sql Developer Name Role Phone Lasha Marrufo MD Primary Care Provide r Farzad Sandhu MD Unavailable [phone] Reason for Visit * Reason Comments Med Refill Encounter Details Date Type Department Care Team (Late Contact Info) Description 09/08/2022 Refill [facility] [address] [place], [place] [phone] Lasha Marrufo MD [address] [place] [address] Acute non intractable tension-type headache; Anxiety Social [...] Description 02/18/2025 1:15 PM EST Office Visit [facility] [address] [place], [place] [phone] Lasha Marrufo MD [address] [place] [address] documented as of this encounter Visit Diagnoses Diagnosis Acute non intractable tension-type headache Anxiety Anxiety state, unspecified documented in this encounter Care Teams Senior Oracle Pl Sql Developer Relationship Specialty Start Date End Date Lasha Marrufo MD [address] [place] [address] PCP - General Internal Medicine 12/25/13 Farzad Sandhu MD [address] [place] [address] Cardiology 11/08/24 documented as of this encounter
--- OUTSIDE RECORDS SUMMARY | 2024-12-10 16:18 | XMS_ITS | Encounter Summary ---
Author Organization [employer] Address [address] [facility] [address] [place] [address] Care Team Providers Care Director Dermatology Name Role Phone Lasha Marrufo MD Primary Care Provide r Farzad Sandhu MD Unavailable [phone] Reason for Visit * Reason Onset Date Comments appt PA approved 12/22/2023 Encounter Details Date Type Department Care Team (Late st Contact Info) Description 12/22/2023 Telephone [facility] [address] [place] [address] Jeanne Arreola, DDS [address] [place] [address] appt PA approved Social History Tobacco Use [...] Description 02/18/2025 1:15 PM EST Office Visit [facility] [address] [place], [place] [phone] Lasha Marrufo MD [address] [place] [address] documented as of this encounter Goals Goal [...] documented as of this encounter Care Teams Director Dermatology Relationship Specialty Start Date End Date Lasha Marrufo MD [address] [place] [address] PCP - General Internal Medicine 12/25/13 Farzad Sandhu MD [address] [place] [address] Cardiology 11/08/24 documented as of this encounter
--- OUTSIDE RECORDS SUMMARY | 2024-12-10 16:18 | XMS_ITS | Encounter Summary ---
Author Organization [employer] Address [address] [facility] [address] [place] [address] Care Team Providers Care Oil Expeller Name Role Phone Lasha Marrufo MD Primary Care Provide r Farzad Sandhu MD Unavailable [phone] Reason for Visit * Reason Onset Date Comments Interoffice Coordination 11/08/2024 Encounter Details Date Type Department Care Team (Late st Contact Info) Description 11/08/2024 Results Follow-Up [facility] [address] [place], [place] [phone] Nancy Frye, RN [address] [place], [place] [phone] ECG 12 lead Social History Tobacco Use [...] EDT Faxed EKG and echo results to [facility] Cards as below * Telephone Encounter - [...] when patient is being seen by her airborne mission systems for new onset of Atrial Fibrillation ----- Message ----- From: Humza Loza MD Sent: 11/06/2024 6:48 PM EDT To: Lasha Jara MD documented in this encounter Plan of Treatment Upcoming Encounters Date Type Department Care Team (Late st Contact Info) Description 02/18/2025 1:15 PM EST Office Visit [facility] [address] [place] [address] Lasha Marrufo MD [address] [place] [address] documented as of this encounter Goals Goal [...] documented as of this encounter Care Teams Oil Expeller Relationship Specialty Start Date End Date Lasha Marrufo MD [address] [place] [address] PCP - General Internal Medicine 12/25/13 Farzad Sandhu MD [address] [place] [address] Cardiology 11/08/24 documented as of this encounter
--- OUTSIDE RECORDS SUMMARY | 2024-12-10 16:18 | XMS_ITS | Encounter Summary ---
Author Organization [facility] Address [address] [place] [address] Phone Care Team Providers Care Commercial Retoucher Name Role Phone Pcp, Unknown Primary Care Provider Unavailabl e Encounter Details Date Type Department Care Team (Late st Contact Info) Description 08/29/2019 Ancillary Orders [facility] [address] [place] [address] Landy Rossi PA [address] [place] [address] [email or web address] Social History Tobacco Use Types Packs/Day [...] Palpitations documented in this encounter Care Teams Commercial Retoucher Relationship Specialty Start Date End Date Pcp, Unknown PCP - General 08/29/19 documented as of this encounter Additional Source Comments The information contained in this document represents components of the legal health record. It is not the complete legal health record.[facility]
--- OUTSIDE RECORDS SUMMARY | 2024-12-10 16:18 | XMS_ITS | Clinical Summary ---
Author Organization [facility] Address [address] [place] [address] [place] [address] Phone Care Team Providers Care Bridge Builder Name Role Phone Pcp, Unknown Primary Care [...] file Medical Devices Not on file Insurance [facility] C3 ACO C3 ACO C3 ACO C3 ACO ACO C3 ACO C3 ACO C[address]CO [facility] C3 ACO Care Teams Bridge Builder Relationship Specialty Start Date End Date Pcp, Unknown PCP - General 08/29/19 Additional Source Comments The information contained in this document represents components of the legal health record. It is not the complete legal health record.[facility]
--- OUTSIDE RECORDS SUMMARY | 2024-12-10 16:18 | XMS_ITS | Encounter Summary ---
Author Organization [employer] Address [address] [place] [address] 7[address] [place] [address] Care Team Providers Care Roof Panel Hanger Name Role Phone Lasha Marrufo MD Primary Care Provide r Farzad Sandhu MD Unavailable [phone] Encounter Details Date Type Department Care Team (Late st Contact Info) Description 03/31/2022 Telephone [facility] [address] [place] [address] Lasha Marrufo MD [address] [place] [address] Social History Tobacco Use Types Packs/Day Years [...] Department Care Team (Late Contact Info) Description 02/18/2025 1:15 PM EST Office Visit [facility] [address] [place] [phone] Lasha Marrufo MD [address] [place] [address] documented as of this encounter Visit Diagnoses Not on filedocumented in this encounter Care Teams Roof Panel Hanger Relationship Specialty Start Date End Date Lasha Marrufo MD [address] [place] [address] PCP - General Internal Medicine 12/25/13 Farzad Sandhu MD [address] [place] [address] Cardiology 11/08/24 documented as of this encounter
--- OUTSIDE RECORDS SUMMARY | 2024-12-10 16:18 | XMS_ITS | Encounter Summary ---
Author Organization [employer] Address [address] [place] [address] 7[address] [place] [address] Care Team Providers Care Flatbed Company Driver Name Role Phone Lasha Marrufo MD Primary Care Provide r Farzad Sandhu MD Unavailable [phone] Encounter Details Date Type Department Care Team (Late st Contact Info) Description 04/13/2022 Orders Only [facility] [address] [place] [phone] Elsa Julien LPN Social History Tobacco Use [...] PM EST Office Visit [facility] [address] [place] [address] Lasha Marrufo MD [address] [place] [address] documented as of this encounter Visit Diagnoses Not on filedocumented in this encounter Care Teams Flatbed Company Driver Relationship Specialty Start Date End Date Lasha Marrufo MD [address] [place] [address] PCP - General Internal Medicine 9/24/14 Farzad Sandhu MD [address] [place] [address] Cardiology 11/08/24 documented as of this encounter
--- OUTSIDE RECORDS SUMMARY | 2024-12-10 16:18 | XMS_ITS | Encounter Summary ---
Author Organization [employer] Address [address] [facility] 7[address] [place] [address] Care Team Providers Care Launch Engineer Name Role Phone Lasha Marrufo MD Primary Care Provide r Farzad Sandhu MD Unavailable [phone] Reason for Visit * Reason Comments Med Refill Encounter Details Date Type Department Care Team (Late st Contact Info) Description 10/27/2024 Refill [facility] [address] [place], [place] [phone] Lasha Marrufo MD [address] [place], [place] [phone] Acquired hypothyroidism; Mild intermittent asthma without complication [...] Description 02/18/2025 1:15 PM EST Office Visit [facility] [address] [place] [address] Lasha Marrufo MD [address] [place] [address] documented as of this encounter Goals Goal [...] documented as of this encounter Care Teams Launch Engineer Relationship Specialty Start Date End Date Lasha Marrufo MD [address] [place] [address] PCP - General Internal Medicine 12/25/13 Farzad Sandhu MD [address] [place] [address] Cardiology 11/08/24 documented as of this encounter
--- OUTSIDE RECORDS SUMMARY | 2024-12-10 16:18 | XMS_ITS | Encounter Summary ---
Author Organization [employer] Address [address] [facility] [address] [place] [address] Care Team Providers Care Melter Clerk Name Role Phone Lasha Marrufo MD Primary Care Provide r Farzad Sandhu MD Unavailable [phone] Reason for Visit * Reason Comments Med Refill Encounter Details Date Type Department Care Team (Late st Contact Info) Description 10/28/2024 Refill [facility] [address] [place], [place] [phone] Lasha Marrufo MD [address] [place], [place] [phone] Acquired hypothyroidism; Mild intermittent asthma without complication [...] Description 02/18/2025 1:15 PM EST Office Visit [facility] [address] [place] [address] Lasha Marrufo MD [address] [place] [address] documented as of this encounter Goals Goal [...] documented as of this encounter Care Teams Melter Clerk Relationship Specialty Start Date End Date Lasha Marrufo MD [address] [place] [address] PCP - General Internal Medicine 12/25/13 Farzad Sandhu MD [address] [place] [address] Cardiology 11/08/24 documented as of this encounter
--- OUTSIDE RECORDS SUMMARY | 2024-12-10 16:18 | XMS_ITS | Encounter Summary ---
Author Organization [employer] Address 75 [facility] 7t [place] [address] Care Team Providers Care Chief Mechanical Engineer Name Role Phone Lasha Marrufo MD Primary Care Provide r Farzad Sandhu MD Unavailable [phone] Reason for Visit * Reason Onset Date Comments Nurse Triage 07/04/2024 Encounter Details Date Type Department Care Team (Late st Contact Info) Description 07/04/2024 Telephone [facility] MEDICINE [address] [place], [place] [phone] Lasha Marrufo MD 230 [place] [address] Nurse Triage Social History Tobacco Use Types [...] EDT Triage call returned with BLS # [id number] [employer]. Patient reports dizziness noted with standing. [...] Description 02/18/2025 1:15 PM EST Office Visit [facility] MEDICINE 230 [place] [address] Lasha Marrufo MD 230 [place] [address] documented as of this encounter Goals Goal [...] documented as of this encounter Care Teams Chief Mechanical Engineer Relationship Specialty Start Date End Date Lasha Marrufo MD 230 [place] [address] PCP - General Internal Medicine 12/25/13 Farzad Sandhu MD [address] [place] [address] Cardiology 11/08/24 documented as of this encounter
--- OUTSIDE RECORDS SUMMARY | 2024-12-10 16:18 | XMS_ITS | Encounter Summary ---
Author Organization [employer] Address [address] [place] [address] 7t [place] [address] Care Team Providers Care Hip Hop Dancer Name Role Phone Lasha Marrufo MD Primary Care Provide r Farzad Sandhu MD Unavailable [phone] Encounter Details Date Type Department Care Team (Late st Contact Info) Description 05/03/2022 Orders Only [facility] MEDICINE [address] [place] [phone] Elsa Julien LPN Social History Tobacco Use [...] Description 02/18/2025 1:15 PM EST Office Visit [facility] MEDICINE [address] [place] [phone] Lasha Marrufo MD [address] [place] [address] documented as of this encounter Visit Diagnoses Not on filedocumented in this encounter Care Teams Hip Hop Dancer Relationship Specialty Start Date End Date Lasha Marrufo MD [address] [place] [address] PCP - General Internal Medicine 9/24/14 Farzad Sandhu MD [address] [place] [address] Cardiology 11/08/24 documented as of this encounter
--- OUTSIDE RECORDS SUMMARY | 2024-12-10 16:18 | XMS_ITS | Encounter Summary ---
Author Organization [employer] Address 75 [facility] 7t [place] [address] Care Team Providers Care Upholsterer Inside Name Role Phone Lasha Marrufo MD Primary Care Provide r Farzad Sandhu MD Unavailable [phone] Reason for Visit * Reason Onset Date Comments Referral 10/21/2024 Encounter Details Date Type Department Care Team (Late st Contact Info) Description 10/21/2024 Telephone [facility] MEDICINE 230 [place], [place] [phone] Lasha Marrufo MD 230 [place] [address] Referral Social History Tobacco Use Types Packs/Day [...] for a long wood eye lasik in [place]. Any questions contact pt at [phone]. documented in this encounter Plan of Treatment Upcoming Encounters Date Type Department Care Team (Late st Contact Info) Description 02/18/2025 1:15 PM EST Office Visit [facility] MEDICINE 230 [place] [address] Lasha Marrufo MD 230 [place] [address] documented as of this encounter Goals Goal [...] documented as of this encounter Care Teams Upholsterer Inside Relationship Specialty Start Date End Date Lasha Marrufo MD [address] [place] [address] PCP - General Internal Medicine 12/25/13 Farzad Sandhu MD [address] [place] [address] Cardiology 11/08/24 documented as of this encounter
--- OUTSIDE RECORDS SUMMARY | 2024-12-10 16:18 | XMS_ITS | Encounter Summary ---
Author Organization [employer] Address [address] [facility] 7t [place] [address] Care Team Providers Care Center Machine Operator Name Role Phone Lasha Marrufo MD Primary Care Provide r Farzad Sandhu MD Unavailable [phone] Encounter Details Date Type Department Care Team (Latest Contact Info) Description 12/10/2024 Travel Social History Tobacco Use Types Packs/Day [...] Description 02/18/2025 1:15 PM EST Office Visit [facility] MEDICINE 230 [place] [address] Lasha Marrufo MD [address] [place] [address] documented as of this encounter Goals Goal [...] documented as of this encounter Care Teams Center Machine Operator Relationship Specialty Start Date End Date Lasha Marrufo MD 230 [place] [address] PCP - General Internal Medicine 12/25/13 Farzad Sandhu MD [address] [place] [address] Cardiology 11/08/24 documented as of this encounter
--- OUTSIDE RECORDS SUMMARY | 2024-12-10 16:18 | XMS_ITS | Encounter Summary ---
Author Organization [employer] Address 75 [facility] 7t [place] [address] Care Team Providers Care Sr Risk Management Consultant Name Role Phone Lasha Marrufo MD Primary Care Provide r Farzad Sandhu MD Unavailable [phone] Encounter Details Date Type Department Care Team ([facility] st Contact Info) Description 02/19/2024 Telephone [facility] MEDICINE 230 [place], [place] [phone] Lasha Marrufo MD 230 [place] [address] Social History Tobacco Use Types Packs/Day Years [...] Description 02/18/2025 1:15 PM EST Office Visit [facility] 230 [place] [address] Lasha Marrufo MD [address] [place] [address] documented as of this encounter Goals Goal [...] documented as of this encounter Care Teams Sr Risk Management Consultant Relationship Specialty Start Date End Date Lasha Marrufo MD [address] [place] [address] PCP - General Internal Medicine 12/25/13 Farzad Sandhu MD [address] [place] [address] Cardiology 11/08/24 documented as of this encounter
--- OUTSIDE RECORDS SUMMARY | 2024-12-10 16:18 | XMS_ITS | Encounter Summary ---
Author Organization [employer] Address 75 [facility] 7[place] [address] Care Team Providers Care Steam Blocker Name Role Phone Lasha Marrufo MD Primary Care Provide r Farzad Sandhu MD Unavailable Reason for Visit * Reason Onset Date Comments tooth fell off partial again 11/21/2023 Encounter Details Date Type Department Care Team (Late st Contact Info) Description 11/21/2023 Telephone [facility] 230 [place] [address] Jeanne Arreola, DDS 230 [place], [place] [phone] tooth fell off partial again Social History [...] Description 02/18/2025 1:15 PM EST Office Visit [facility] MEDICINE [address] [place] [address] Lasha Marrufo MD 230 [place] [address] documented as of this encounter Goals Goal [...] documented as of this encounter Care Teams Steam Blocker Relationship Specialty Start Date End Date Lasha Marrufo MD 230 [place] [address] PCP - General Internal Medicine 12/25/13 Farzad Sandhu MD [address] [place] [address] Cardiology 11/08/24 documented as of this encounter
--- OUTSIDE RECORDS SUMMARY | 2024-12-10 16:18 | XMS_ITS | Encounter Summary ---
Author Organization [employer] Address 75 [facility] 7[address] [place] [address] Care Team Providers Care Manager Gallery Name Role Phone Lasha Marrufo MD Primary Care Provide r Farzad Sandhu MD Unavailable [phone] Encounter Details Date Type Department Care Team ([facility] st Contact Info) Description 10/31/2024 Results Follow-Up [facility] MEDICINE 230 [place] [address] Lasha Marrufo MD 230 [place] [address] SANDEEP Screen,IFA, with Reflex to Titer and [...] 1:29 PM EDT Please fax labs to Real Estate Sales Manager and schedule appointment documented in this encounter Plan of Treatment Upcoming Encounters Date Type Department Care Team (Late st Contact Info) Description 02/18/2025 1:15 PM EST Office Visit [facility] MED[facility]INE [address] [place] [phone] Lasha Marrufo MD 230 [place] [address] documented as of this encounter Goals Goal [...] documented as of this encounter Care Teams Manager Gallery Relationship Specialty Start Date End Date Lasha Marrufo MD 230 [place] [address] PCP - General Internal Medicine 12/25/13 Farzad Sandhu MD [address] [place] [address] Cardiology 11/08/24 documented as of this encounter
--- OUTSIDE RECORDS SUMMARY | 2024-12-10 16:18 | XMS_ITS | Encounter Summary ---
Author Organization [employer] Address [address] [place] [address] 7t [place] [address] Care Team Providers Care Medication Specialist Name Role Phone Lasha Marrufo MD Primary Care Provide r Farzad Sandhu MD Unavailable [phone] Reason for Visit * Reason Comments Med Refill Encounter Details Date Type Department Care Team (Late st Contact Info) Description 04/04/2023 Refill [facility] MEDICINE [address] [place] [address] [phone] Lasha Marrufo MD [address] [place] [address] [phone] Social History Tobacco Use Types Packs/Day Years [...] Description 02/18/2025 1:15 PM EST Office Visit [facility] MEDICINE [address] [place] [address] [phone] Lasha Marrufo MD [address] [place] [address] [phone] documented as of this encounter Visit Diagnoses Not on filedocumented in this encounter Care Teams Medication Specialist Relationship Specialty Start Date End Date Lasha Marrufo MD 230 [place] [address] PCP - General Internal Medicine 12/25/13 Farzad Sandhu MD [address] [place] [address] Cardiology 11/08/24 documented as of this encounter
--- OUTSIDE RECORDS SUMMARY | 2024-12-10 16:18 | XMS_ITS | Encounter Summary ---
Author Organization [employer] Address 75 [facility] 7[place] [address] Care Team Providers Care Repairer Recreational Vehicle Name Role Phone Lasha Marrufo MD Primary Care Provide r Farzad Sandhu MD Unavailable [phone] Reason for Visit * Reason Onset Date Comments chart prep 12/09/2024 Encounter Details Date Type Department Care Team (Late st Contact Info) Description 12/09/2024 Telephone [facility] MEDICINE 230 [place], [place] [phone] Lasha Marrufo MD 230 [place] [address] chart prep Social History Tobacco Use Types Packs/Day Years [...] encounter Miscellaneous Notes * Telephone Encounter - Ritika Palmer [place] - 12/09/2024 10:32 AM EDT Chart Prep Labs: done Images: done Screenings: Colonoscopy , Eye Exam, and Foot Exam Vaccines due: Covid Due, PCV20 Due, Flu Due, RSV in Pharmacy Due, and Shingles in pharmacy Due Referrals: OBGYN Pending appointment on 12/17/24 at 2 PM and Rheumatology Requested notes by Fax. Waiting for notes. Overdue care gaps: A1C and Glucose documented in this encounter Plan of Treatment Upcoming Encounters Date Type Department Care Team (Late st Contact Info) Description 02/18/2025 1:15 PM EST Office Visit [facility] MEDICINE 230 [place] [address] Lasha Marrufo MD 230 [place] [address] documented as of this encounter Goals Goal [...] documented as of this encounter Care Teams Repairer Recreational Vehicle Relationship Specialty Start Date End Date Lasha Marrufo MD 230 [place] [address] PCP - General Internal Medicine 12/25/13 Farzad Sandhu MD [address] [place] [address] Cardiology 11/08/24 documented as of this encounter
--- OUTSIDE RECORDS SUMMARY | 2024-12-10 16:18 | XMS_ITS | Encounter Summary ---
Author Organization [employer] Address 75 [facility] 7t [place] [address] Care Team Providers Care Car Rental Service Attendant Name Role Phone Lasha Marrufo MD Primary Care Provide r Farzad Sandhu MD Unavailable [phone] Encounter Details Date Type Department Care Team (Late st Contact Info) Description 04/06/[address] [facility] [address] [place] [address] Eliz Adorno LPN Social History Tobacco Use [...] Description 02/18/2025 1:15 PM EST Office Visit [facility] MEDICINE 230 [place] [address] Lasha Marrufo MD 230 [place] [address] documented as of this encounter Visit Diagnoses Not on filedocumented in this encounter Care Teams Car Rental Service Attendant Relationship Specialty Start Date End Date Lasha Marrufo MD 230 [place], [place] [phone] PCP - General Internal Medicine 12/25/13 Farzad Sandhu MD [address] [place] [address] Cardiology 11/08/24 documented as of this encounter
--- OUTSIDE RECORDS SUMMARY | 2024-12-10 16:18 | XMS_ITS | Encounter Summary ---
Author Organization [employer] Address [address] [place] [address] 7t [place] [address] Care Team Providers Care Die Attaching Machine Tender Name Role Phone Lasha Marrufo MD Primary Care Provide r Farzad Sandhu MD Unavailable [phone] Encounter Details Date Type Department Care Team (Late st Contact Info) Description 08/22/2022 Abstract [facility] MEDICINE [address] [place] [address] [phone] Lasha Marrufo MD [address] [place] [address] [phone] Social History Tobacco Use Types Packs/Day Years [...] 1:15 PM EST Office Visit [facility] MEDICINE 230 [place], [place] [phone] Lasha Marrufo MD 230 [place], [place] [phone] documented as of this encounter Procedures Procedure [...] on filedocumented in this encounter Care Teams Die Attaching Machine Tender Relationship Specialty Start Date End Date Lasha Marrufo MD [address] [place] [address] PCP - General Internal Medicine 12/25/13 Farzad Sandhu MD [address] [place] [address] Cardiology 11/08/24 documented as of this encounter
--- OUTSIDE RECORDS SUMMARY | 2024-12-10 16:18 | XMS_ITS | Encounter Summary ---
Author Organization [employer] Address [address] [place] [address] 7t [place] [address] Care Team Providers Care Data Communications Engineer Name Role Phone Lasha Marrufo MD Primary Care Provide r Farzad Sandhu MD Unavailable [phone] Encounter Details Date Type Department Care Team (Late st Contact Info) Description 06/30/2022 Orders Only [facility] MEDICINE [address] [place] [address] [phone] Elsa Julien LPN Social History Tobacco Use [...] Description 02/18/2025 1:15 PM EST Office Visit [facility] MEDICINE 230 [place], [place] [phone] Lasha Marrufo MD 230 [place] [address] documented as of this encounter Visit Diagnoses Not on filedocumented in this encounter Care Teams Data Communications Engineer Relationship Specialty Start Date End Date Lasha Marrufo MD 230 [place] [address] PCP - General Internal Medicine 12/25/13 Farzad Sandhu MD [address] [place] [address] Cardiology 11/08/24 documented as of this encounter
--- OUTSIDE RECORDS SUMMARY | 2024-12-10 16:18 | XMS_ITS | Clinical Summary ---
Author Organization [facility] Address [address] [place] [address] Phone Care Team Providers Care Power Saw Operator Name Role Phone Lasha Castillo MD Primary Care Provi av Allergies Active Allergy Reactions Criticality Noted Date Comments Acetaminophen 05/26/2016 Codeine Unknown 05/26/2016 Pseudoephedrine Unknown 06/29/2022 pseudoephedrine Shellfish Derived 10/03/2022 Medications ciclopirox (PENLAC) 8 % solution Apply topically at bedtime. Apply over nail and surrounding skin. Apply daily over previous coat. After seven (7) days, may remove with alcohol and continue cycle. 6.6 mL 5 02/26/20 25 Active ammonium lactate (AmLactin) 12 % lotion Apply topically if needed for dry skin. 400 g 2 5 11/28/19 26 Active Encounters Date Type Department Care Team Description 11/27/2024 10:45 AM EDT Consult Orthopedic Surgery [facility] [address] [facility] [address] [place] [address] Estevan Viramontes DPM Controlled type 2 diabetes with neuropathy (CMS/HCC V24, CMS/HCC V28) (Primary Dx); Arthritis of both feet; Hammertoes of both feet; Dermatophytosis, nail from Last 3 Months Social History Tobacco [...] Care Team (Late st Contact Info) Description 01/29/2025 10:45 AM EDT Office Visit Orthopedic Surgery - [place] [address] [facility] [address] [place] [phone] Estevan Viramontes, DPAmy 175 [facility] [address] [place] [address] Health Maintenance Due Date Last Done Comments Breast Cancer Screening 1961 Diabetes: Annual Foot Exam 1971 Diabetes: Annual Retina Eye Exam 1971 Zoster Vaccines (1 of 2) 2011 Pneumococcal Vaccine: 50+ Years (2 of 2 - PCV) 07/02/2015 07/01/2014 RSV Immunization Adult Patients (1 - Risk 60-74 years 1-dose series) 2021 Colorectal Cancer Screening: Colonoscopy 04/28/2023 Social Influencers of Health Screening 04/28/2023 Depression Screening 04/03/2024 Diabetes: Annual Urine Albumin-Creatinine Ratio (uACR) 04/30/2024 COVID-19 Vaccine ( - season) 2024 06/29/2020, 06/01/2020 Influenza Vaccine (#1) 2024 , 02/15/2022, 01/15/2020, Additional history exists Diabetes: Blood Sugar Control Test (HGBA1C) 03/07/2025 09/05/2024, 02/13/2024 Diabetes: Annual GFR (Glomerular Filtration Rate) 10/23/2025 10/23/2024 Hypertension/CHF/CAD Annual BMP Blood Test 10/23/2025 10/23/2024 DTaP,Tdap,and Td Vaccines (2 - Td or Tdap) 05/23/2027 05/23/2017 Cervical Cancer Screening: Pap Smear 10/04/2027 10/03/2024 Cholesterol Screening (Lipid Panel) 10/23/2029 10/23/2024 Hepatitis C Screening Completed 06/29/2022 HIV Screening [...] topic Insurance MEDICAID - [place] Care Teams Power Saw Operator Relationship Specialty Start Date End Date Lasha Castillo MD [address] [place] [phone] PCP - General Internal Medicine 09/09/24
--- OUTSIDE RECORDS SUMMARY | 2024-12-10 16:18 | XMS_ITS | Encounter Summary ---
Author Organization [employer] Address [address] [place] [address] 7[address] [place] [address] Care Team Providers Care Parking Garage Manager Name Role Phone Lasha Marrufo MD Primary Care Provide r Farzad Sandhu MD Unavailable [phone] Encounter Details Date Type Department Care Team (Late st Contact Info) Description 09/05/2022 Orders Only [facility] MEDICINE [address] [place] [phone] Elsa Julien LPN Social History Tobacco Use [...] Description 02/18/2025 1:15 PM EST Office Visit [facility] MEDICINE [address] [place] [phone] Lasha Marrufo MD [address] [place] [phone] documented as of this encounter Visit Diagnoses Not on filedocumented in this encounter Care Teams Parking Garage Manager Relationship Specialty Start Date End Date Lasha Marrufo MD [address] [place] [address] PCP - General Internal Medicine 12/25/13 Farzad Sandhu MD [address] [place] [address] Cardiology 11/08/24 documented as of this encounter
--- OUTSIDE RECORDS SUMMARY | 2024-12-10 16:19 | XMS_ITS | Encounter Summary ---
Author Organization [employer] Address [address] [place] [address] 7[address] [place] [address] Care Team Providers Care Director Of The [employer] Facility Name Role Phone Lasha Marrufo MD Primary Care Provide r Farzad Sandhu MD Unavailable [phone] Encounter Details Date Type Department Care Team (Late st Contact Info) Description 08/04/2022 Abstract [facility] MEDICINE [address] [place] [address] [phone] Lasha Marrufo MD [address] [place] [address] [phone] Social History Tobacco Use Types Packs/Day Years [...] Description 02/18/2025 1:15 PM EST Office Visit [facility] MEDICINE 230 [place], [place] [phone] Lasha Marrufo MD 230 [place], [place] [phone] documented as of this encounter Procedures Procedure [...] on filedocumented in this encounter Care Teams Director Of The [employer] Relationship Specialty Start Date End Date Lasha Marrufo MD 230 [place] [address] PCP - General Internal Medicine 12/25/13 Farzad Sandhu MD [address] [place] [address] Cardiology 11/08/24 documented as of this encounter
--- OUTSIDE RECORDS SUMMARY | 2024-12-10 16:19 | XMS_ITS | Clinical Summary ---
Author Organization [employer] Address [address] [place] [address] [address] [place] [address] Care Team Providers Care Conveyor Line Battery Charger Name Role Phone Lasha Marrufo MD Primary Care Provide r Farzad Sandhu MD Unavailable [phone] Allergies Active Allergy Reactions Criticality Noted [...] 3 023 Active Blood Glucose Monitoring Suppl (thesixtyone Blood Glucose) w/Device kitIndications:Ty pe 2 diabetes mellitus without complication, without long-term current use of insulin ([facility]) 1 kit 2 times daily. 1 kit 023 Active glucose blood test stripIndications: Type 2 diabetes mellitus without complication, without long-term current use of insulin ([facility]) 1 each [...] ATERIAL ES ALTO) Active TRUEplus Lancets 33G [facility] TEST BLOOD SUGAR TWICE DAILY Active magnesium [...] g 3 Active cyclobenzaprine (Flexeril) 5 MG tabletIndications :Spasm [...] x 5 nights 70 g 025 Active ipratropium-albut saray (Duo-Neb) 0.5-2.5 mg/3 mL nebulizer solution INHALE 1 AMPULE USING A NEBULIZER FOUR TIMES DAILY NEEDED FOR WHEEZING AND FOR COUGH 90 mL 3 025 Active montelukast (Singulair) 10 MG tabletIndications :Mild intermittent asthma without complication TAKE 1 TABLET BY MOUTH EVERY EVENING 90 tablet 1 025 Active levothyroxine (Synthroid, Levoxyl) 75 MCG tabletIndications :Acquired hypothyroidism Take 1 tablet (75 mcg) by mouth in the morning. 90 tablet 1 025 Active montelukast (Singulair) 10 MG tabletIndications :Mild intermittent asthma without complication TAKE 1 TABLET BY MOUTH EVERY EVENING 90 tablet 1 025 Active levothyroxine (Synthroid, Levoxyl) 75 MCG tabletIndications :Acquired hypothyroidism Take 1 tablet (75 mcg) by mouth in the morning. 90 tablet 1 025 Active butalbital-acetam inophen-caffeine 50-325-40 MG tabletIndications :Acute non intractable tension-type headache TAKE 1 TABLET BY MOUTH ONCE DAILY AT ONSET OF HEADACHE, MAY REPEAT IN 12 HOURS NEEDED 20 tablet 025 Active apixaban (Eliquis) 5 MG tablet Take 1 tablet (5 mg) by mouth 2 times daily. 60 tablet 2 025 Active Trulicity 0.75 MG/0.5ML solution auto-injectorIndi cations:Type 2 diabetes mellitus without complication, unspecified whether long distance operator insulin use (CMS/HCC) INJECT ONE PEN (=0.75MG) SUBCUTANEOUSLY ONCE A WEEK DIRECTED 2 mL 1 08/19/2 025 Active varenicline (Chantix) 0.5 MG tabletIndications :Smoker Take 1 tablet (0.5 mg) by mouth 2 times daily. Take with full glass of water. 60 tablet 1 025 2024 Active Trulicity 0.75 MG/0.5ML solution auto-injectorIndi cations:Type 2 diabetes mellitus without complication, unspecified whether intermediate insulin use ([facility]) INJECT ONE PEN (=0.75MG) SUBCUTANEOUSLY ONCE A WEEK DIRECTED 2 mL 1 025 2024 Discontinued Active Problems Problem Noted Date Diagnosed Date Atrial fibrillation 11/06/2024 Assessment & Plan (12/10/2024 1:23 PM EDT): Newly diagnosed Under the care of Cardiology last note 11/18/2024 On Eliquis Assessment & Plan (11/06/2024 6:47 PM EDT): Chadvasc 3 points Rate controlled, asymptomatic Start eliquis risk vs benefits discussed, told to discuss with hadoop infrastructure architect if watchman is indicated Pelvic pain 09/05/2024 Assessment & Plan (12/10/2024 1:19 PM EDT): Patient with c/o pelvic pain and recurrent Bacterial vaginosis. Pt requesting to see a Parking Lot Spotter Pelvic US 11/08/2024 was normal Seen by MUSIC JOURNALIST 11/26/2024 Dr Ochoa, did not find anything specific Assessment & Plan (09/05/2024 2:34 PM EDT): Patient with c/o pelvic pain and recurrent Bacterial vaginosis. Pt requesting to see a Parking Lot Spotter Plan: Obtain Pelvic US Referral to MUSIC JOURNALIST Heart murmur 09/05/2024 Assessment & Plan (12/10/2024 1:25 PM EDT): Recent ECHO showed: onclusions: - The left ventricular systolic function is normal. The calculated ejection fraction is 60% by biplane method. - The left atrium is severely dilated. - There is mild calcification of the aortic valve. - There is moderate mitral annular calcification. - There is mild dilatation of the ascending aorta measuring 4.00 cm. Under the care of Cardiology now Assessment & Plan (09/05/2024 3:46 PM EDT): Obtain ECHO Right knee pain 04/18/2024 Preventative health care 07/18/2023 Assessment & Plan (12/10/2024 1:26 PM EDT): Mammogram: 08/29/2024 Normal Pap Smear: NL 09/2021 will need a repeat [phone] Colonoscopy: 06/2019 Dr Delgado, Tubular adenoma Vaccines: Td Pt claims she had one in [place] in 2013. Assessment & Plan (10/12/2023 11:21 AM EDT): Mammogram: 08/2023 Normal Pap Smear: NL 09/2021 will need a repeat [phone] Colonoscopy: 06/2019 Dr Delgado, Tubular adenoma Vaccines: Td Pt claims she had one in [place] in 2013. Assessment & Plan (07/18/2023 1:58 PM EDT): Mammogram: 04/12/2023 Normal Pap Smear: NL 09/2021 will need a repeat [phone] Colonoscopy: 06/2019 Dr Delgado, Tubular adenoma Vaccines: Flu shot Td Pt claims she had one in [place] in 2013. Abdominal wall hernia 07/18/2023 Assessment [...] back to Dr. Danny GREENWOOD for EGD. Seen in March EGD showed: [...] suggests gastritis. Plan: Referred back to Dr. Delgado GI for EGD Patient was referred ENT evaluation ( smoker ) Assessment & Plan (07/18/2023 2:18 PM EDT): Pt c/o this for close to a year Plan: barium Swallow, ENT evaluation Moderate persistent asthma 04/04/2023 Assessment & Plan (02/13/2024 11:40 AM EST): Under the care of Stopperer Assembler Unfortunately continues to smoke, not interested in quitting Discussed with her the risk of smoking Obstructive sleep apnea syndrome 09/28/2022 Tubular adenoma of colon 09/28/2022 Assessment & Plan (07/18/2023 1:55 PM EDT): Pt underwent a Colonoscopy by Dr Delgado june 2019 that showed a Tubular adenoma, will need a repeat in 2024 Type 2 diabetes mellitus without complication Assessment & Plan (12/10/2024 1:25 PM EDT): Pt here for a f/u regarding her Diabetes DM controlled Hgb A1c 12/10/2024: 6.1 Pt is currently on Metformin XR 500 mg 2 tabs po BID and Trulicity 0.75 q week Eye exam : 05/31/2024 [facility] Microalbumin ordered Pt on an LEXII inhibitor/ARB Foot check risk if zero On Asa 81 mg po daily Plan: Continue current regimen Pt advised to: adhere to diabetic diet check your blood sugars regularly check your feet on a daily basis. f/u with me in 3 months Assessment & Plan (09/05/2024 2:38 PM EDT): Pt here for a f/u regarding her Diabetes DM controlled Hgb A1c 09/05/2024: 6 from: 6.2 Pt is currently on Metformin XR 500 mg 2 tabs po BID and Trulicity 0.75 q week Eye exam : 05/31/2024 [facility] Microalbumin ordered Pt on [...] LASIK center Positive SANDEEP (antinuclear antibody) 01/19/2016 Assessment & Plan (12/10/2024 1:27 PM EDT): Pt's SANDEEP positive Referred to Rheumatology Carpal tunnel syndrome 08/28/2014 Hypertriglyceridemia 01/17/2014 Assessment [...] weight loss. Smoker 01/17/2014 Assessment & Plan (12/10/2024 1:35 PM EDT): Still smoking 1-15 cigarrettes Pt recently seen in the ER 11/20/2024 and was diagnosed with PNA Plan: Repeat Chest x-ray to ensure resolution Interested in Michellex Assessment & Plan (02/13/2024 11:47 AM EST): [...] Encounters Date Type Department Care Team Description 12/10/2024 1:15 PM EDT Office Visit [address] [address] Lasha Marrufo MD Type 2 diabetes mellitus without complication, without long-term current use of insulin (CMS/HCC) (Primary Dx); Pelvic pain; Smoker; Longstanding persistent atrial fibrillation (CMS/HCC); Heart murmur; Preventative health care; Positive SANDEEP (antinuclear antibody) 12/10/2024 Travel 12/09/2024 Telephone [facility] [address] [place] [address] Lasha Marrufo MD chart prep 11/29/2024 Telephone [facility] [address] [place] [address] Lasha Marrufo MD Nurse Triage 11/25/2024 Telephone [facility] [address] [place] [address] Nancy Frye, BARREL HANDLER Follow-up 11/20/[address] [place] [address] Lasha Marrufo MD Care Coordination 11/20/2024 Orders Only GENERIC EXTERNAL DATA DEPARTMENT Provider, Generic External Data 11/20/2024 Travel 11/19/2024 Telephone [facility] [address] [place] [address] Lasha Marrufo MD Results 11/19/2024 Telephone [facility] [address] [place] [address] Lasha Marrufo MD Nurse Triage 11/18/2024 Refill [facility] [address] [address] [place] [phone] Lasha Marrufo MD Type 2 diabetes mellitus without complication, unspecified whether long distance operator insulin use (CMS/HCC) 11/11/2024 Travel 11/08/2024 Results Follow-Up [facility] [address] [place] [address] Nancy Frye, RN ECG 12 lead 11/06/2024 6:20 PM EDT Office Visit [facility] [address] Humza Morfin MD Longstanding persistent atrial fibrillation (CMS/HCC) (Primary Dx) 11/06/2024 Travel 11/06/2024 Telephone [facility] [address] [place] [address] Nancy Frye, RN Results 11/01/2024 Refill [facility] [address] [facility] [place] [address] Lasha Marrufo MD Acute non intractable tension-type headache 10/31/2024 Results Follow-Up [facility] [address] [place] [address] Lasha Marrufo MD SANDEEP Screen,IFA, with Reflex to Titer and Pattern 10/29/2024 Orders Only [facility] [address] [place] [address] Lasha Marrufo MD Type 2 diabetes mellitus without complication, without long-term current use of insulin (CMS/HCC) (Primary Dx) 10/29/2024 Refill [facility] [address] [place] [address] Lasha Marrufo MD Mild intermittent asthma without complication; Acquired hypothyroidism 10/28/2024 Refill [facility] [address] [place] [address] Lasha Marrufo MD Acquired hypothyroidism; Mild intermittent asthma without complication 10/28/2024 Refill [facility] [address] [place] [address] Lasha Marrufo MD Mild intermittent asthma without complication; Acquired hypothyroidism 10/27/2024 Refill [facility] [address] [place] [address] Lasha Marrufo MD Acquired hypothyroidism; Mild intermittent asthma without complication 10/21/2024 Telephone [facility] [address] [place] [address] Lasha Marrufo MD Referral 10/08/2024 Refill [facility] [address] [place] [address] Lasha Marrufo MD 10/03/2024 Orders Only GENERIC EXTERNAL DATA DEPARTMENT Provider, Generic External Data 09/24/2024 Refill [facility] [address] [place] [address] Name, MD Meliton Type 2 diabetes mellitus without complication, unspecified whether long distance operator insulin use ([facility]) 09/18/2024 Orders Only [facility] [address] [place] [address] Lasha Marrufo MD Pelvic pain (Primary Dx) 09/12/2024 Telephone [facility] [address] [place] [address] Lasha Marrufo MD 09/11/2024 Orders Only [facility] [address] [place] [address] Lasha Marrufo MD Positive SANDEEP (antinuclear antibody) (Primary Dx) 09/11/2024 Telephone [facility] [address] [place] [address] Lasha Marrufo MD US PELVIS ORDER from Last 3 Months Immunizations Immunization Administration [...] Mass Index 37.16 12/10/2024 1:11 PM EDT Plan of Treatment Upcoming Encounters Date Type Department Care Team (Late st Contact Info) Description 02/18/2025 1:15 PM EST Office Visit [facility] [address] [place] [address] Lasha Marrufo MD [address] [place] [address] Health Maintenance Due Date Last Done Comments [...] 2021 Diabetes: Urine Protein Screening 06/30/2023 06/29/2022 Dental Oral Exam 04/12/2024 10/10/2023, 02/25/2014 Colonoscopy 06/25/2024 06/26/2019 Colorectal Cancer Screening 06/25/2024 Eye Exam 09/09/2024 09/09/2022, 06/12/2022, 09/09/2022, Additional history exists COVID-19 Vaccine ( season) 2024 06/29/2020, 06/01/2020 Influenza Vaccine (#1) 2024 , 02/15/2022, 01/15/2020, Additional history exists Alcohol/Substance Use Screening 02/12/2025 02/13/2024 Disability Screening 02/12/2025 02/13/2024 SDOH Screening 02/12/2025 02/13/2024 Depression Monitoring 03/07/2025 09/05/2024, 025 Diabetes: Hemoglobin A1C 03/11/2025 025, 09/05/2024, 02/13/2024, Additional history exists Mammogram 08/29/2025 08/29/2024, 08/02, 04/12/2023, Additional history exists Lipid Panel 10/23/2025 10/23/2024, 08/02, 06/29/2022, Additional history exists Tobacco Screening 12/10/2025 12/10/2024 Dental X-Ray: Full Mouth 10/10/2026 10/10/2023, 02/02 [...] without long-term current use of insulin (CMS/HCC) SARS COV2/INFLUENZA A/B AND RSV RNA QL [...] TMA, UROGENITAL Routine 10/03/2024 2:44 PM EDT BI MAMMOGRAM SCREENING TOMOSYNTHESIS BILATERAL Routine 08/29/2024 [...] Relevant to Health Maintenance Results * XR Chest 2 Views (12/10/2024 2:29 PM EDT) Only the most recent of2 resultswithin the time period is included. Anatomical Region Laterality Modality Chest Radiographic Melody ging 12/10/2024 2:29 PM EDT Narrative 12/10/2024 2:41 PM EDT [facility] [address] [place] [address] XRay Report Signed Patient: Arianna Pineda MR#: [id number] : 1960 Acct:[id number] Age/Sex: 64 / F ADM Date: 12/10/24 Loc: .HHCX Attending Dr: Lasha Castillo MD Ordering Physician: Lasha Castillo MD Date of Service: 12/10/24 Procedure(s): XR chest 2V Accession Number(s): [id number] cc: Lahsa Castillo MD Reason for Exam: Pneumonia EXAMINATION: [...] Daryl Maxwell MD 12/10/2024 02:39 PM EDT Dictated By: Daryl Maxwell MD Signed By: <Electronically signed by Daryl Maxwell MD in OV> 12/10/241438 DD/ 28 TD/TT: 12/10/24 143 Trimming Caser: Procedure Note Santhoshtristoncelinayuri, Image - 12/10/2024 [facility] [address] [place] [address] XRay Report Signed Patient: Arianna Pineda EMR#: [id number] : 1960cct:[id number] Age/Sex: 64 / FADM Date: 12/10/24 Loc: HO.HHCX Attending Dr: Lasha Castillo MD Ordering Physician: Lasha Castillo MD Date of Service: 12/10/24 Procedure(s): XR chest 2V Accession Number(s): [id number] cc: Lasha Castillo MD Reason for Exam: [...] Daryl Maxwell MD 12/10/2024 02:39 PM EDT Dictated By: Daryl Maxwell MD Signed By: <Electronically signed by Daryl Maxwell MD in OV> 12/10/241438 DD/ 28 TD/TT: 12/10/24 1430 Trimming Caser: us Lasha Jara MD IMG XR PROCEDURES Fin al Result * (ABNORMAL) POCT Hgb A1c (12/10/2024 1:12 PM EDT) Hemoglobin A1C 6.1(A) 4.0 - 5.7 % QC Media Lot # [id number] Lot# Expiration Date [id number] Blood 12/10/2024 1:12 PM EDT Lasha Jara MD POINT OF CARE TEST EN TER/EDIT ORDERABLES Final Result * POCT Glucose (12/10/2024 1:11 PM EDT) Glucose Blood, POC 100 60 - 200 mg/dL QC Media Lot # [id number] Lot# Expiration Date Blood Capillary blood specimen / Unknown 12/10/2024 1:11 PM EDT Lasha Jara MD POINT OF CARE TEST EN TER/EDIT ORDERABLES Final Result * Strep A Nucleic Acid (11/20/2024 12:44 PM EDT) IDNOW SERIAL# [id number] [facility] Strep A Nucleic Acid Negative Negative [facility] Comment:All test results mus t [...] LAB MICROBIOLOGY - GENERAL ORDERABLES Final Result [facility] [address] [place] [phone] * SARS-CoV-2 RNA, Influenza A/B, and RSV RNA, Ql NAAT (11/20/2024 12:44 PM EDT) Influenza A PCR NEGATIVE Negative [facility] Influenza B PCR NEGATIVE Negative [facility] Resp Syncy Virus RNA Qual PCR NEGATIVE Negative [facility] SARS COV2 PCR NEGATIVE Negative [facility] Comment:All test results mus t be [...] use by authorized laboratories.Testing performed on the [employer] GeneXpert utilizingreal-time RT-PCR.All SARS CoV2 and positive influenza A/B results arereported to [facility]. 11/20/2024 12:4 4 PM EDT 11/20/2024 12:50 PM EDT us Generic External Data Provider LAB MICROBIOLOGY - GENERAL ORDERABLES Final Result [facility] [address] [place] [phone] * US Pelvis Transvaginal (11/08/2024 4:45 PM EDT) Anatomical Region Laterality Modality Pelvis Ultrasound 11/08/2024 4:45 PM EDT Narrative 11/08/2024 4:46 PM EDT [address] [address] Ultrasound Report Signed Patient: Arianna Pineda MR#: [id number] : 1960 Acct:[id number] Age/Sex: 64 / F ADM Date: 11/08/24 Loc: .US Attending Dr: Sanjay Ochoa MD Ordering Physician: Sanjay Ochoa MD Date of Service: 11/08/24 Procedure(s): US pelvic and transvaginal Accession Number(s): [id number] cc: Lasha Castillo MD; Sanjay Ochoa MD [...] signed by Emanuel Patterson MD in OV> 11/08/24 1646 DD/ 164 TD/TT: 11/08/241644 Trimming Caser: Procedure Note Donotuseinterpreter, Image - 11/08/2024 [place] [address] Ultrasound Report Signed Patient: Arianna Pineda EMR#: [id number] : 1960cct:[id number] Age/Sex: 64 / FADM Date: 11/08/24 Loc: HO.US Attending Dr: Sanjay Ochoa MD Ordering Physician: Sanjay Ochoa MD Date of Service: 11/08/24 Procedure(s): US pelvic and transvaginal Accession Number(s): [id number] cc: Lasha Castillo MD; Sanjay Ochoa MD [...] in OV> 11/08/241645 DD/ 44 TD/TT: 11/08/241644 Trimming Caser: us [facility] External Provider IMG US PROCEDURES Final Result * ECG 12 lead (11/06/2024 6:48 PM EDT) Narrative Humza Morfin MD - 11/06/2024 6:48 PM EDT Atrial fibrillation Heat rate 80 Qtc 471 Humza Loza MD ECG ORDERABLES Fi nal Result * (ABNORMAL) CBC auto differential (10/23/2024 10:11 AM EDT) White Blood Count 7.8 4.8 - 10.8 X10*3/uL [facility] Red Blood Count 4.57 4.20 - 5.50 X10*6/uL [facility] Hemoglobin 11.9(L) 12.0 - 16.0 g/dl [facility] Hematocrit 38.6 37.0 - 47.0 % [facility] Mean Corpuscular Volume 84.5 80.0 - 98.0 fL [facility] Mean Corpuscular Hemoglobin 26.0(L) 27.0 - 33.0 pg [facility] Mean Corpuscular HGB Conc 30.8(L) 31.0 - 35.0 g/dl [facility] Red Cell Distribution Width 15.6 11.0 - 16.0 % [facility] Platelet Count 199 160 - 400 X10*3/uL [facility] Mean Platelet Volume 9.6 9.4 - 12.3 fL [facility] Neutrophils Percent Auto 58.7 45 - 73 % [facility] Imm Gran Pct Auto 0.5(H) 0.0 - 0.4 % [facility] Lymphocytes Percent Auto 32.6 20 - 40 % [facility] Monocytes Percent Auto 4.5 2 - 11 % [facility] Eosinophils Percent Auto 3.1 0 - 4 % [facility] Basophils Percent Auto 0.6 0 - 2 % [facility] NRBC Pct Auto 0.0 0.0 - 0.2 /100WBC [facility] Neutrophils Absolute Auto 4.6 2.0 - 8.3 x10*3/uL [facility] Imm Gran Abs Auto 0.04(H) 0.00 - 0.03 X10*3/uL [facility] Lymphocytes Absolute Auto 2.5 1.2 - 4.9 X10*3/uL [facility] Monocytes Absolute Auto 0.4 0.1 - 1.2 X10*3/uL [facility] Eosinophils Absolute Auto 0.2 0.0 - 0.4 X10*3/uL [facility] Basophils Absolute Auto 0.1 0.0 - 0.2 X10*3/uL [facility] NRBC Abs Auto 0.000 0.0 - 0.012 X10*3/uL [facility] Blood Venous blood specimen / Unknown 10/23/2024 10:11 AM EDT 10/23/2024 10:11 AM EDT Lasha Jara MD LAB BLOOD ORDERABLES Final Result [facility] [address] [place] [phone] * HIV-1/2 Antigen and Antibodies, Fourth Generation, with Reflexes (10/23/2024 10:11 AM EDT) HIV AB/AG Nonreactive Nonreactive [facility] Comment:HIV-1 p24 Ag and/or HIV-1/HIV-2 Ab not detected.A test result that is nonreactive does not exclude thepossibility of exposure to or infection with HIV-1 and/orHIV-2. Nonreactive results in this assay for individualswith prior exposure to HIV-1 and/or HIV-2 may be due toantigen and antibody levels that are below the limit ofdetection of this assay.The [employer] HIV Ag/Ab Combo assay result andsupplemental assay results should be interpreted inconjunction with the patient's clinical presentation,history and other laboratory results. If the results areinconsistent with clinical evidence, additional testing issuggested to confirm the result. Blood Venous blood specimen / Unknown 10/23/2024 10:11 AM EDT 10/23/2024 10:11 AM EDT us Lasha Jara MD LAB BLOOD ORDERABLES Final Result [facility] [address] [place] [phone] * (ABNORMAL) SANDEEP Screen,IFA, with Reflex to Titer and Pattern (10/23/2024 10:11 AM EDT) Anti Nuclear Antibody Screen POSITIV E(A) NEGATIVE [facility] Comment:SANDEEP IFA is a first l ine screen for detecting thepresence of up to approximately 150 autoantibodies invarious autoimmune diseases. A positive SANDEEP IFA resultis suggestive of autoimmune disease and reflexes totiter and pattern. Further laboratory testing may beconsidered if clinically indicated.For additional information, please refer [email or web address]/faq/[email or web address](This link is being provided for informational/educational purposes only.) SANDEEP Titer 1:1280( A) titer [facility] Comment:Reference Range <1: 40 Negative 1:40-1:80 Low Antibody Level >1:80 Elevated Antibody Level SANDEEP Pattern Nuclear , Nucleol ar(A) [facility] Comment:Nucleolar pattern is associated with systemic sclerosis(scleroderma), systemic sclerosis/polymyositis overlapand Sjogren's syndrome.AC-8,9,10: NucleolarInternational Consensus on SANDEEP Patterns(https://doi.org/10.1515/vmpi-7362-3839) SANDEEP TITER 2 (REF LAB) 1:320(A ) titer [facility] Comment:Reference Range <1:4 0 Negative 1:40-1:80 Low Antibody Level >1:80 Elevated Antibody Level SANDEEP Pattern 2 Nuclear , Homogen eous(A) [facility] Comment:Homogeneous pattern is associated with systemic lupuserythematosus (SLE), drug-induced lupus and juvenileidiopathic arthritis.AC-1: HomogeneousInternational Consensus on SANDEEP Patterns(https://doi.org/10.1515/ivux-3202-3972)THIS TEST WAS PERFORMED AT:[employer] [place] [phone] PAUL LEWIS MD SANDEEP TITER 3 TNP [facility] SANDEEP PATTERN 3 [facility] Blood Venous blood specimen / Unknown 10/23/2024 10:11 AM EDT 10/23/2024 10:11 AM EDT us Lasha Jara MD LAB BLOOD ORDERABLES Final Result [facility] [address] [place] [phone] * (ABNORMAL) Lipid Panel, Standard (10/23/2024 10:11 AM EDT) Triglycerides 147 <150 mg/dL [facility] Comment:Desirable Triglyceri de: less than 150 mg/dLBorderline High Triglyceride 150-199 mg/dLHigh Triglyceride: 200-499 mg/dLVery High Triglyceride: greater than or equal to 5OO mg/dL Cholesterol 116 <200 mg/dL [facility] Comment:Desirable Cholestero l: less than 200 mg/dLBorderline High Cholesterol: 200-239 mg/dLHigh Cholesterol: greater than 239 mg/dL LDL Cholesterol Calculated 54 <100 mg/dL [facility] Comment:Desirable LDL: less than 100 mg/dLNear Optimal/Above Optimal LDL: 110- 129 mg/dLBorderline High LDL: 130-159 mg/dLHigh LDL: 160-189 mg/dLVery High LDL: greater than or equal to 190 mg/dL HDL Cholesterol 33(L) >40 mg/dL [facility] Comment:Desirable HDL: great er than 40 mg/dL Note: This HDL assay may give artificially low results in patients with liver disease. Blood Venous blood specimen / Unknown 10/23/2024 10:11 AM EDT 10/23/2024 10:11 AM EDT us Lasha Jara MD LAB BLOOD ORDERABLES Final Result [facility] [address] [place] [phone] * (ABNORMAL) Comprehensive Metabolic Panel (10/23/2024 10:11 AM EDT) Sodium 143 135 - 145 mmol/L [facility] Potassium 3.9 3.3 - 5.1 mmol/L [facility] [facility] Chloride 111(H) 96 - 108 mmol/L [facility] Carbon Dioxide 26 22 - 29 mmol/L [facility] Anion Gap 10(L) 12 - 20 [facility] Urea Nitrogen (BUN) 12 9 - 16 mg/dL [facility] Creatinine, Serum 0.68 0.5 - 1.4 mg/dL [facility] Estimated Glomerular Filt Rate >60 [facility] Comment:Chronic Kidney Disea se: Estimated GFR < 60 mL/min/1.23g0Igpudb Kidney Disease: Estimated GFR < 15 mL/min/1.73m2 Glucose 86 60 - 115 mg/dL [facility] Calcium 9.2 8.4 - 10.2 mg/dL [facility] Bilirubin, Total 0.2 0.0 - 1.0 mg/dL [facility] Aspartate Amino Transferase 24 5 - 31 U/L [facility] Alanine Aminotransferase 23 0 - 31 U/L [facility] Total Protein 7.9 6.5 - 8.0 g/dL [facility] Albumin Level 4.3 3.5 - 5.0 g/dL [facility] Alkaline Phosphatase 129(H) 39 - 117 U/L [facility] Blood Venous blood specimen / Unknown 10/23/2024 10:11 AM EDT 10/23/2024 10:11 AM EDT us Lasha Jara MD LAB BLOOD ORDERABLES Final Result [facility] [address] [place] [phone] * US Abdomen Complete (10/23/2024 8:35 AM EDT) Anatomical Region Laterality Modality Abdomen Ultrasound 10/23/2024 8:35 AM EDT Narrative 10/23/2024 9:45 AM EDT [address] [address] Ultrasound Report Signed Patient: Arianna Pineda MR#: [id number] : 1960 Acct:[id number] Age/Sex: 64 / F ADM Date: 10/23/24 Loc: HO.US Attending Dr: Medardo Delgado MD Ordering Physician: Medardo Delgado MD Date of Service: 10/23/24 Procedure(s): US abdomen complete Accession Number(s): [id number] cc: Medardo Delgado MD; Lasha Castillo MD [...] in OV> 10/23/24 0943 DD/ 0835 TD/TT: 10/23/24 0917 Trimming Caser: Procedure Note Donotuseinterpreter, Image - 10/23/2024 [place] [address] Ultrasound Report Signed Patient: Arianna Pineda EMR#: [id number] : 1960cct:[id number] Age/Sex: 64 / FADM Date: 10/23/24 Loc: HO.US Attending Dr: Medardo Delgado MD Ordering Physician: Medardo Delgado MD Date of Service: 10/23/24 Procedure(s): US abdomen complete Accession Number(s): [id number] cc: Medardo Delgado MD; Lasha Castillo MD [...] in OV> 10/23/24 0943 DD/ 0835 TD/TT: 10/23/24 0917 Trimming Caser: [facility] External Provider IMG US PROCEDURES Final Result * HPV DNA, Low/High Risk (10/03/2024 3:17 PM EDT) HPV High Risk Negative Negative [facility] HPV Genotype 16 Negative Negative [facility] HPV Genotype 18 Negative Negative [facility] Comment:HPV testing performe d at [facility] (CLIA#[id number]), [address] [place] [address].Testing for HPV was performed using the [employer]system. The presence of HPV in the female [...] 3:17 PM EDT 10/07/2024 7:55 AM EDT us Generic External Data Provider LAB BLOOD ORDERAB LES Final Result [facility] [address] [place] [phone] * Pap Smear (10/03/2024 3:17 PM EDT) 10/03/2024 3:17 PM EDT 10/07/2024 7:55 AM EDT Narrative [facility] - 10/09/2024 1:36 PM EDT ----- ------- Name: Arianna Pineda Age/Sex: 64/F : 1960 Unit#: [id number] Attend Dr: Sanjay Ochoa MD Re10/03/24 Status: DEP REF Location: HO.LNP Disch: ----- ------- SPEC : [id number] RECD: 10/07/24 STATUS: NUNO BARRETO NUM: [id number] COURTNEY: 10/03/[address] [facility] DR: Sanjay Ochoa MD ENTERED: 10/07/24 SP TYPE: Pap Smr OT DR: Lasha Castillo MD ORDERED: Pap Smear [...] and HPV testing will be performed at [facility] (CLIA #[id number]), [address] [place] [address]. Testing for HPV was performed using the [...] detected. All professional services are performed by [facility] ([address] [place] [address]; ; CLIA #[id number]). The PAP Test is a screening procedure with the inherent possibility of both false negative and false positive results. Results should be interpreted in the context of historic and current clinical findings. Reliability of the PAP Test is enhanced by performing the test on a regular repetitive basis. CONTINUED ON NEXT PAGE ----- ------- Name: Arianna Pineda Age/Sex: 64/F : 1960 Unit#: [id number] Attend Dr: Sanjay Ochoa MD Re10/03/24 Status: DEP REF Location: [facility] Disch: ----- ------- SPEC : [id number] RECD: 10/07/24 STATUS: NUNO GONSALEZRuby NUM: [id number] COURTNEY: 10/03/[address] [facility] [address]: Sanjay Ochoa MD ENTERED: 10/07/24 SP TYPE: Pap Smr OTHR DR: Lasha Castillo MD ORDERED: Pap Smear Copies To: Lasha Castillo MD [address] [address] Sanjay Ochoa MD [facility] [address] [place] [address] Drive [address] [place] [address] ----- ------- Signed (signature on file) ROB Nunes ([facility]) 10/09/24 1336 ----- ------- END OF REPORT us Generic External Data Provider LAB CYTOLOGY AJ WALTERS Final Result [facility] [address] [place] [phone] * Chlamydia/N. Gonorrhoeae RNA, TMA, Urogenitial (10/03/2024 2:44 PM EDT) CT PCR NOT DETECTED Not Detect. [facility] Comment:A not detected test result [...] psychologicalconsequences. NG PCR NOT DETECTED Not Detect. [facility] Comment:A not detected test result [...] LAB MICROBIOLOGY - GENERAL ORDERABLES Final Result [facility] [address] [place] [address] [phone] * BI Mammogram Screening Tomosynthesis Bilateral (08/29/2024 10:50 AM EDT) Anatomical Region Laterality Modality Breast Bilateral Mammography 08/29/2024 10:5 0 AM EDT Narrative 09/06/2024 4:28 PM EDT [address] [place] [address] Mammography Report Signed Patient: Arianna Pineda MR#: [id number] : 1960 Acct:[id number] Age/Sex: 64 / F ADM Date: 08/29/24 Loc: HO.MAMMO Attending Dr: Lasha Castillo MD Ordering Physician: Lasha Castillo MD Resu lts: 2Benign Findings Date of Service: 08/29/24 Follow Up: 1 Year From [facility] ina Mammogram Procedure(s): MM tomosynthesis screening BI Accession Number(s): [id number] cc: Lasha Castillo MD EXAMINATION: MM SCREENING [...] 09/06/24 1625 DD/ 1050 TD/TT: 08/29/24 1120 Trimming Caser: Procedure Note Donotuseinterpreter, Image - 09/06/2024 [facility] [address] [place] [address] Mammography Report Signed Patient: Arianna Pineda EMR#: [id number] : 1960cct:[id number] Age/Sex: 64 / FADM Date: 08/29/24 Loc: HO.MAMMO Attending Dr: Lasha Castillo MD Ordering Physician: Lasha Castillo MDResu lts: 2Benign Findings Date of Service: 08/29/24Follow Up: 1 Year From Orig ina Mammogram Procedure(s): MM tomosynthesis screening BI Accession Number(s): [id number] cc: Lasha Castillo MD EXAMINATION: MM SCREENING [...] 09/06/24 1625 DD/ 1050 TD/TT: 08/29/24 1120 Trimming Caser: Lasha Jara MD IMG BI PROCEDURES Fin al Result * Albumin, Random Urine W/Creatinine (06/29/2022 12:01 PM EDT) Creatinine, Random Urine 112 20 - 275 mg/dL [facility] Albumin, Urine 2.0 See Note: mg/dL [facility] Comment: Reference Range: Reference Range Not established Albumin/Creatinin e Ratio, Random Urine 18 <30 mcg/mg creat [facility] Comment: The ADA defines abnormalities in albumin [...] 06/30/2022 5:17 PM EDT SPLIT 06/29/2022 FROM [id number] Lasha Jara MD LAB URINE ORDERABLES Final Result [facility] [address], [place] [address] [facility] [address] [place] [address] * Hepatitis C Antibody with Reflex to HCV, RNA, Quantitative, Real-Time PCR (06/29/2022 9:03 AM EDT) Hepatitis C Antibody NON-REACT BROCK NON-REACT BROCK [facility] Index 0.07 <1.00 [facility] Comment: HCV antibody was non-reactive. There is no laboratory evidence of HCV infection. In most cases, no further action is required. However, if recent HCV exposure is suspected, a test for HCV RNA (test code 25811) is suggested. For additional information please refer to http://education.CloudCase/faq/PEJ89g6 (This link is being provided for informational/ educational purposes only.) 06/29/2022 9:03 AM EDT 06/29/2022 9:04 AM EDT [facility] - 06/29/2022 10:21 PM EDT FASTING:NO PATIENT UNABLE TO VOID; ADVISED TO RETURN FOR COLLECTION. FASTING: NO Lasha Jara MD LAB BLOOD ORDERABLES Final Result [facility] [address], [place] [address] [facility] [address] [place] [address] * Hm Colonoscopy (06/26/2019) Pathologist [facility] Colonoscopy Normal Normal 06/26/2019 Irene Zavala - 06/26/2019 2:53 PM EDT Recommended 5 year follow up ( see scanned notes) Historical Provider HEALTH MAINTENANCE Edited Result - Final from Last 3 Months or Most Recently Relevant to Health Maintenance Insurance [id number] [employer] STAND ADULT Care Teams Conveyor Line Battery Charger Relationship Specialty Start Date End Date Lasha Marrufo MD [address] [place] [address] PCP - General Internal Medicine 12/25/13 Farzad Sandhu MD [address] [place] [phone] Cardiology 11/08/24
== END 2024-12-10 13:46 | disposition home or self-care (01) ==
LOC: HO.HHCX 13:45
PROVIDERS: PCP Internal Medicine; Visit Provider Internal Medicine
DX: F17.200 Nicotine dependence, unspecified, uncomplicated (principal)
CPT/HCPCS: 71046

== ENCOUNTER → 2024-12-10 13:56 | Outpatient (BNV) | payer MEDICAID, SELFPAY | PROVIDERS: PCP Internal Medicine; Visit Provider Radiology Diagnostic Radiology | DX: J18.9 Pneumonia, unspecified organism (principal); F17.210 Nicotine dependence, cigarettes, uncomplicated | CPT/HCPCS: 71046 ==

== ENCOUNTER 2024-12-30 16:08 | Outpatient (REF) | payer MEDICAID, SELFPAY ==
--- OUTSIDE RECORDS SUMMARY | 2023-10-19 10:55 | XMS_ITS ---
Author Organization [facility] Address [address] [place] [phone] Care Team Providers Care Fabrication Inspector Name Role Phone Mirella Jara MD, Lasha Primary Care Provide r Medardo Ortega Jr Encounters Encounter Location Date Provider Diagnosis [facility] 10 [facility] [address] [place] [phone] 10/19/2023 Medardo Delgado Jr Plan Of Treatment Next Appt Details Provider Name:Medardo vallecillo Jr, 08/14/2025 03:35:00 PM, [address] [facility], [address], [place], [address], Progress Notes * WATERSBRIANSETHOB:03/23[birth year]19 62 (64 yo F)Acc No.[id number]:10/19/2023 Progress Notes Patient: YUAN TORRES Provider: Josh Delgado MD :1960 A ge:63 Y S ex:Female Date:10/19/2023 Address:[address] [place] [address] [place] Pcp:Lasha holcomb MD Subjective: * Chief Complaints: [...] 0 10/19/2023 Generated for Deb kay/Hunter/Rama on: 0 12/30/2024 06:11 PM EDT
--- OUTSIDE RECORDS SUMMARY | 2024-04-02 06:20 | XMS_ITS ---
Author Organization [facility] Address [address] [place] [address] [place] [phone] Care Team Providers Care Food And Beverage Checker Name Role Phone Mirella Jara MD, Lasha Primary Care Provide r Medardo Ortega Jr REASON FOR VISIT abn ugi series Encounters Encounter Location Date Provider Diagnosis [facility] [place] [address] [place] [phone] 04/02/2024 Medardo Delgado Jr Abnormal UGI series R93.3 Assessments Encounter Date Diagnosis (ICD Code) Assessment Notes Treatment Notes Treatment Clinical Notes Section Notes 04/02/2024 Abnormal UGI series (ICD-10 - R93.3) Plan Of Treatment Next Appt Details Provider Name:Medardo vallecillo Jr, 08/14/2025 03:35:00 PM, [address] [place] [address], Suite [facility], [place], [address], Progress Notes * FRANTZ WATERSOB:[birth year] (64 yo F)Acc No.[id number]:04/02/2024 EGD/MAC Patient: Ajit QUINONESMARIFER YUAN Provider: Josh Delgado MD :1960 A ge:64 Y S ex:Female Date:04/02/2024 Address:[address] [place], [place] [phone] Pcp:Lasha holcomb MD Subjective: * Chief Complaints: [...] Pending * Provider: Josh Delgado MD Date: 1 Generated for Deb kay/Hunter/Jorgeransmitting on: 0 12/30/2024 06:12 PM EDT
--- NOTE | ~2024-12-30 | CT_ITS ---
CLINICAL HISTORY: F17.210 - Nicotine dependence, cigarettes, uncomplicated CT lung cancer screening (LDCT) Comparison: CT/VA/SR - CT LUNG SCREENING - 12/01/23 10:36 EDT Technique: Axial CT images of the chest using low-dose technique. Referring provider counseled the patient on shared decision-making for LDCT screening. Additional counseling was provided on smoking cessation. Effective radiation dose total: DLP 73.3 mGycm, CTDIvol 2 mGy. Findings: Lung: Stable 7 mm left lower lobe nodule on image 99. No new lung nodule. Foci of atelectasis are noted within the bilateral lower lungs. Coronary artery calcifications: Mild. Mild cardiomegaly with apparent interval increase in size since the prior study. Limited upper abdomen: Prior cholecystectomy Other: None IMPRESSION: Category 2: Benign findings. Recommend continued annual screening # #L2 ## This document has been electronically signed by: Ada Barrett MD on 01/01/2025 14:48:55
--- OUTSIDE RECORDS SUMMARY | 2024-12-30 18:12 | XMS_ITS | Encounter Summary ---
Author Organization [employer] Address [address] [facility] [address] [place] [address] Care Team Providers Care Zinc Miner Blasting Name Role Phone Lasha Marrufo MD Primary Care Provide r Farzad Sandhu MD Unavailable [phone] Reason for Visit * Reason Comments Med Refill Encounter Details Date Type Department Care Team (Late st Contact Info) Description 10/28/2024 Refill [facility] [address] [place], [place] [phone] Lasha Marrufo MD [address] [place], [place] [phone] Acquired hypothyroidism; Mild intermittent asthma without complication [...] Description 02/18/2025 1:15 PM EST Office Visit [facility] MEDIC[facility] [address] [place] [address] Lasha Marrufo MD [address] [place] [phone] documented as of this encounter Goals Goal [...] documented as of this encounter Care Teams Zinc Miner Blasting Relationship Specialty Start Date End Date Lasha Marrufo MD [address] [place] [address] PCP - General Internal Medicine 12/25/13 Farzad Sandhu MD [address] [place] [address] Cardiology 11/08/24 documented as of this encounter
--- OUTSIDE RECORDS SUMMARY | 2024-12-30 18:12 | XMS_ITS | Encounter Summary ---
Author Organization [employer] Address [address] [place] [address] [address] [place] [address] Care Team Providers Care Venetian Blind Mechanic Name Role Phone Lasha Marrufo MD Primary Care Provide r Farzad Sandhu MD Unavailable [phone] Encounter Details Date Type Department Care Team (Late st Contact Info) Description 08/22/2022 Abstract [facility] MED[facility] [address] [place] [address] [phone] Lasha Marrufo MD [address] [place] [address] [phone] Social History Tobacco Use Types Packs/Day Years [...] 1:15 PM EST Office Visit [facility] [address] [place], [place] [phone] Lasha Marrufo MD [address] [place], [place] [phone] documented as of this encounter Procedures Procedure [...] on filedocumented in this encounter Care Teams Venetian Blind Mechanic Relationship Specialty Start Date End Date Lasha Marrufo MD [address] [place] [phone] PCP - General Internal Medicine 12/25/13 Farzad Sandhu MD [address] [place] [phone] Cardiology 11/08/24 documented as of this encounter
--- OUTSIDE RECORDS SUMMARY | 2024-12-30 18:12 | XMS_ITS | Encounter Summary ---
Author Organization [employer] Address [address] [place] [address] [address] [place] [address] Care Team Providers Care Air Carrier Maintenance Inspector Name Role Phone Lasha Marrufo MD Primary Care Provide r Farzad Sandhu MD Unavailable [phone] Reason for Visit * Reason Comments Med Refill Encounter Details Date Type Department Care Team (Late st Contact Info) Description 04/04/2023 Refill [facility] MED[facility] [address] [place] [address] [phone] Lasha Marrufo MD [address] [place] [address] [phone] Social History Tobacco Use Types Packs/Day Years [...] Description 02/18/2025 1:15 PM EST Office Visit [facility] MED[facility] [address] [place] [address] [phone] Lasha Marrufo MD [address] [place] [address] [phone] documented as of this encounter Visit Diagnoses Not on filedocumented in this encounter Care Teams Air Carrier Maintenance Inspector Relationship Specialty Start Date End Date Lasha Marrufo MD [address] [place] [address] PCP - General Internal Medicine 12/25/13 Farzad Sandhu MD [address] [place] [address] Cardiology 11/08/24 documented as of this encounter
--- OUTSIDE RECORDS SUMMARY | 2024-12-30 18:12 | XMS_ITS | Encounter Summary ---
Author Organization [employer] Address [address] [facility] [address] [place] [address] Care Team Providers Care Policy And Planning Manager Name Role Phone Lasha Marrufo MD Primary Care Provide r Farzad Sandhu MD Unavailable [phone] Reason for Visit * Reason Onset Date Comments tooth fell off partial again 11/21/2023 Encounter Details Date Type Department Care Team (Late st Contact Info) Description 11/21/2023 Telephone [facility] [address] [place] [address] Jeanne Arreola, DDS [address] [place], [place] [phone] tooth fell off partial again Social History [...] Description 02/18/2025 1:15 PM EST Office Visit [facility] [address] [place] [address] Lasha Marrufo MD [address] [place] [address] documented as of this encounter Goals Goal Patient Goal Type Associated Problems Recent Progress Patient-Stated? Author Smoking cessation General No Willa Chaparro Help patient manage nicotine dependency General No Willa Chapraro documented as of this encounter Visit Diagnoses Not on filedocumented in this encounter Additional Health Concerns Assessment Noted Time PHQ-9 Depression Total Score: 2 07/18/19 24 2:07 PM EDT documented as of this encounter Care Teams Policy And Planning Manager Relationship Specialty Start Date End Date Lasha Marrufo MD [address] [place] [address] PCP - General Internal Medicine 12/25/13 Farzad Sandhu MD [address] [place] [address] Cardiology 11/08/24 documented as of this encounter
--- OUTSIDE RECORDS SUMMARY | 2024-12-30 18:12 | XMS_ITS | Patient Health Record ---
Author Organization [facility] Address [address] [place] [address] Care Team Providers Care Cap Maker Name Role Phone Mirella Jara MD, Lasha Primary Care Provide Medardo Thornton Jr Unavailable Allergies Allergen (clinical drug ingredient) Drug/Non Drug Allergy documented on EMR Reaction Allergy Type Onset Date Status codeine Codeine Sulfate Unknown Drug Allergy A ctive Results Component Value Reference Range Notes Complete Blood Count no Diff Reviewed date:04/02/2024 02:01:30 PM Interpretation: Performing Lab:[facility], [address] [place] [address] Notes/Report: White Blood Count 8.0 4.8-10.8 X10*3/uL [...] Panel Reviewed date:04/02/2024 02:01:14 PM Interpretation: Performing Lab:[facility], [address] [place] [phone] Notes/Report: Bilirubin Total 0.2 0.0-1.0 mg/dL Bilirubin Direct < 0.2 0.0-0.5 mg/dL Aspartate Amino Transferase 21 5-31 U/L Alanine Aminotransferase 22 0-31 U/L Total Protein 7.7 6.5-8.0 g/dL Albumin Level 4.1 3.5-5.0 g/dL Alkaline Phosphatase 128 39-117 U/L IRON PROFILE Reviewed date:04/02/2024 02:01:24 PM Interpretation: Performing Lab:[facility], [address] [place] [phone] Notes/Report: Iron 41 30-160 mcg/dL Total Iron Binding Capacity 335 228-428 mcg/dL Percent Iron Saturation 12 15-50 % Unsaturated Iron Binding 294 Ferritin Reviewed date:04/02/2024 02:01:49 PM Interpretation: Performing Lab:[facility], [address] [place] [phone] Notes/Report: Ferritin 11 10-250 ng/mL Liver Fibrosis Pnl Reviewed date:04/08/2024 08:30:50 AM Interpretation: Performing Lab:[facility], [address] [place] [phone] Notes/Report: Liver Fibrosis Score 0.19 Liver Fibrosis [...] a>0.62 and a<=1.00 : A3 (severe activity) AOA-Bujzc-3-Macroglobuli n 219 106-279 mg/dL FIB-Haptoglobin 217 43-212 mg/dL FIB-Apolipoprotein A1 153 101-198 mg/dL FIB-Total Bilirubin 0.2 0.2-1.2 mg/dL FIB-GGT 119 3-65 U/L FIB-ALT 14 6-29 U/L Reference ID [id number] Footnote SEE NOTE The reliability of results is dependent on compliance with the preanalytical and analytical conditions recommended by [employer]. The tests have to be deferred for: [...] The performance characteristics have been [facility] by [facility]. It has not been cleared or approved by the U.S. Food and Drug Administration. Performance characteristics refer to the analytical performance of the test. Osmosis, the associated logo, [employer] and all associated [employer] givens are the registered trademarks of [employer]. All third alliance party givens - (R) and (TM) - are the property of their respective owners. (C) 0107-7998 [employer]. All rights reserved. THIS TEST WAS PERFORMED AT: [facility] [address] [place] [address] TRAVIS BOO MD,PHD,TRINY SANDEEP Reflex Titer and Pattern Reviewed date:04/05/2024 02:03:11 PM Interpretation: Performing Lab:[facility], [address] [place] [phone] Notes/Report: Anti Nuclear Antibody Screen NEGATIVE NEGATIVE [...] Negative International Consensus on SANDEEP Patterns (https://doi.org/10.151 5/lsew-0879-0425) For additional information, please refer to http://education.SensiGen/faq/FAQ1 41 (This link is being provided for informational/ educational purposes only.) THIS TEST WAS PERFORMED AT: [facility] [address] [place] [phone] JEAN PAUL LEWIS MD Anti Nuclear Antibody Titer TNP Anti Nuclear Antibody Pattern TNP SANDEEP Titer 2 TNP SANDEEP Pattern 2 TNP SANDEEP Titer 3 TNP SANDEEP Pattern 3 TNP Mitochondrial Antibody Reviewed date:04/09/2024 03:01:22 PM Interpretation: Performing Lab:[facility], [address] [place] [phone] Notes/Report: Mitochondrial Antibodies NEGATIVE NEGATIVE The specimen was negative for cytoplasmic antibodies, however additional staining was observed suggesting the presence of Antinuclear Antibodies. Consider requesting order code 249, SANDEEP Screen, IFA with Reflex to Titer and Pattern, or order code [id number], SANDEEP Screen, IFA w/reflex Titer/Pattern, and Reflex to Multiplex 11 Ab [place], if clinically indicated. THIS TEST WAS PERFORMED AT: [facility] [address] [address] JEAN PAUL LEWIS MD Mitochondrial Ab Titer TNP Smooth Muscle Antibody Reviewed date:04/09/2024 03:01:16 PM Interpretation: Performing Lab:[facility], [address] [place] [phone] Notes/Report: Smooth Muscle Antibody 25 <20 U [...] type 1. THIS TEST WAS PERFORMED AT: [facility]/[address] [address] SIGRID MOLINA MD,PHD Hepatitis A,B,C Profile Reviewed date:04/02/2024 02:01:41 PM Interpretation: Performing Lab:[facility], [address] [place] [phone] Notes/Report: Hepatitis A Antibody IgM Nonreactive Nonreactive [...] Blood Reviewed date:04/02/2024 01:59:23 PM Interpretation: Performing Lab:[facility], [address] [place] [address] Notes/Report: Glucose, Whole Blood 106 60-115 mg/dL METER # : [id number] Pathology Reviewed date:04/05/2024 03:24:48 PM Interpretation: Performing Lab:[facility], [address] [place] [phone] Notes/Report: Complete Blood Count Auto Di ff Reviewed date:10/24/2024 08:44:04 AM Interpretation: Performing Lab:[facility], [address] [place] [phone] Notes/Report: White Blood Count 7.8 4.8-10.8 X10*3/uL [...] Panel Reviewed date:10/24/2024 08:39:47 AM Interpretation: Performing Lab:[facility], [address] [place] [phone] Notes/Report: Sodium 143 135-145 mmol/L Potassium 3.9 [...] Panel Reviewed date:10/24/2024 08:39:21 AM Interpretation: Performing Lab:[facility], [address] [place] [phone] Notes/Report: Triglycerides 147 <150 mg/dL Desirable Triglyceride: [...] Pattern Reviewed date:10/30/2024 05:07:02 PM Interpretation: Performing Lab:[facility], [address] [place] [phone] Notes/Report: Anti Nuclear Antibody Screen POSITIVE NEGATIVE SANDEEP IFA is a first line screen for detecting the presence of up to approximately 150 autoantibodies in various autoimmune diseases. A positive SANDEEP IFA result is suggestive of autoimmune disease and reflexes to titer and pattern. Further laboratory testing may be considered if clinically indicated. For additional information, please refer to http://education.SensiGen/faq/FAQ1 77 (This link is being provided for informational/ educational purposes only.) Anti Nuclear Antibody Titer 1:1280 Reference Range <1:40 Negative 1:40-1:80 Low Antibody Level >1:80 Elevated Antibody Level Anti Nuclear Antibody Pattern Nuclear, Nucleolar Nucleolar pattern is associated with systemic sclerosis (scleroderma), systemic sclerosis/polymyositis overlap and Sjogren's syndrome. AC-8,9,10: Nucleolar International Consensus on SANDEEP Patterns (https://doi.org/10151 gkgw-9085-3678) SANDEEP Titer 2 1:320 Reference Range <1:40 Negative 1:40-1:80 Low Antibody Level >1:80 Elevated Antibody Level SANDEEP Pattern 2 Nuclear, Homogeneous Homogeneous pattern is associated with systemic lupus erythematosus (SLE), drug-induced lupus and juvenile idiopathic arthritis. AC-1: Homogeneous International Consensus on SANDEEP Patterns (https://doi.org/10151 pxkp-0242-7805) THIS TEST WAS PERFORMED AT: [facility] [address] [place] [phone] JEAN PAUL LEWIS MD SANDEEP Titer 3 TNP SANDEEP Pattern 3 TNP US abdomen complete Reviewed date:10/24/2024 08:44:16 AM Interpretation: Performing Lab: Notes/Report: [place] [address] Ultrasound Report Signed Patient: Yuan Waters MR#: [id number] : 1960 Acct:[id number] Age/Sex: 64 / F ADM Date: 10/23/24 Loc: HO.US Attending Dr: Medardo Delgado MD Ordering Physician: Medardo Delgado MD Date of Service: 10/23/24 Procedure(s): US abdomen complete Accession Number(s): [id number] cc: Medardo Delgado MD; Lasha Castillo MD [...] OV> 10/23/24 0943 DD/ 0835 TD/TT: 10/23/2417 Executive Housekeeper: HIV Ab/Ag Reviewed date:10/24/2024 08:38:16 AM Interpretation: Performing Lab:[facility], [address] [place] [phone] Notes/Report: HIV AB/AG Nonreactive Nonreactive HIV-1 p24 [...] limit of detection of this assay. The gauzz HIV Ag/Ab Combo assay result and supplemental assay results should be interpreted in conjunction with the patient's clinical presentation, history and other laboratory results. If the results are inconsistent with clinical evidence, additional testing is suggested to confirm the result. Reason For Referral Referring Provider First Name Lasha Referring Provider Last Name Mirella perez Referring Provider Speciality Internal M edicine Referred Organization [facility] Referred Provider Medardo Delgado Jr Referred Address [address] [place] [address],[place] [address],[place],[address],[place] Referred Provider Specialty Gastroentero logy General Notes Kelsi Christianson 2024 09:59:43 AM >requested a [facility] referral from [facility] for visit with dr akins on [...] 200 MG TAKE 1 CAPSULE BY MO [facility] TWICE DAILY Oral for 30 Active Immunizations Vaccine Route Administration Date Status Comme nts Influenza Unknown 12/02/2018 Administered Influenza Unknown 01/15/2020 Administered Influenza Unknown 01/01/2022 Administered Influenza Unknown 08/31/2023 Refused Problems Problem Type SNOMED Code ICD Code Onset Dates Problem Status W/U Status Risk Notes Problem 21585188 Rectal bleeding (K62.5) Active confirmed Problem 12829762 Constipation (K59.00) Active confirmed Problem Gastroesophageal reflux disease (154340267) Gastroesophageal reflux disease (K21.9) Active confirmed Problem 619397437 Gastroesophageal reflux disease without esophagitis (K21.9) Active confirmed Problem 276348579 Fatty liver (K76.0) Active confirmed Problem 28298559 Hiatal hernia (K44.9) Active confirmed Problem 87102873 Dysphagia, unspecified type (R13.10) Active confirmed Problem 292835343 Abnormal UGI series (R93.3) Active confirmed Problem 227130073 Irritable bowel syndrome with constipation (K58.1) Active confirmed Problem 002270337 GERD without esophagitis (K21.9) Active confirmed Problem 139441602 LUQ pain (R10.12) Active confirmed Problem 153404624 LLQ pain (R10.32) Active confirmed Problem 385090632 Epigastric mass (R19.06) Active confirmed Vital Signs Blood pressure diastolic 77 mm Hg 08/29/2024 Height 66.5 in 08/29/2024 Blood pressure systolic 111 mm Hg 08/29/2024 Weight 225 lbs 08/29/2024 BMI 35.77 kg/m2 08/29/2024 Encounters Encounter Location Date Provider Diagnosis [facility] [address] [place] [id number] 04/02/2024 Medardo Delgado Jr Abnormal UGI series R93.3 [facility] [address] [place] [id number] 03/14/2024 Medardo Delgado Jr Abnormal UGI series R93.3 ; Dysphagia, unspecified type R13.10 and Fatty liver K76.0 [facility] [address] [place] [id number] 08/29/2024 Medardo Delgado Jr Abdominal pain R10.9 ; Gastroesophageal reflux disease without esophagitis K21.9 and Constipation K59.00 [facility] [address] [place] [phone] 02/19/2024 Medardo Delgado Jr Gastroesophageal reflux disease without esophagitis K21.9 [facility] [address] [place] [phone] 02/21/2024 Medardo Delgado Jr [facility] [address] [place] [id number] 03/19/2024 Medardo Delgado Jr [facility] [address] [place] [id number] 04/02/2024 Medardo Delgado Jr [facility] [address] [place] [phone] 04/05/2024 Medardo Delgado Jr [facility] [address] [place] [phone] 10/24/[address] [facility] [address] [place] [address] 10/30/2024 Medardo Delgado Jr Assessments Encounter Date [...] Maximus vallecillo Jr, 08/14/2025 03:35:00 PM, [address], [address], [place], [address], Insurance Providers Payer Name Payer Address Payer Phone Subscriber Number Group Number Insured Name Patient Relationship to Insured Coverage Start Date Coverage End Date MEDICAID OF [facility] [address] [place] [address] [id number] YUAN LR Self - patient is the insured Medical (General) History Medical History History ICD Code hypertension obesity Hypothyroidism asthma arthritis SANDEEP + colonoscopy 06/26/19, 1 adenoma, five-yea r followup recommended Gastroesophageal reflux dise [facility], EGD/03/23, no Santos's esophagus or H. pylori.EGD 03/26, no H. pylori, Santos's esophagus, or celiac disease. Obstructive sleep apnea type II diabetes Surgical History Surgery Date(Month/Year) knee surgery-right cholecystectomy tubal ligation breast biopsy
--- OUTSIDE RECORDS SUMMARY | 2024-12-30 18:12 | XMS_ITS | Encounter Summary ---
Author Organization [facility] Address [address] [place] [address] Phone Care Team Providers Care Senior Customer Service Representative Name Role Phone Pcp, Unknown Primary Care Provider Unavailabl e Encounter Details Date Type Department Care Team (Late st Contact Info) Description 08/29/2019 Ancillary Orders [facility] [address] [place] [address] Landy Rossi PA [address] [place] [phone] [email or web address] Palpitations Social History Tobacco Use Types Packs/Day [...] Palpitations documented in this encounter Care Teams Senior Customer Service Representative Relationship Specialty Start Date End Date Pcp, Unknown PCP - General 08/29/19 documented as of this encounter Additional Source Comments The information contained in this document represents components of the legal health record. It is not the complete legal health record.[facility]
--- OUTSIDE RECORDS SUMMARY | 2024-12-30 18:12 | XMS_ITS | Encounter Summary ---
Author Organization [employer] Address [address] [facility] 7t [place] [address] Care Team Providers Care Operating Room Technologist Name Role Phone Lasha Marrufo MD Primary Care Provide r Farzad Sandhu MD Unavailable [phone] Reason for Visit * Reason Onset Date Comments Nurse Triage 07/04/2024 Encounter Details Date Type Department Care Team (Late st Contact Info) Description 07/04/2024 Telephone [facility] [address] [place], [place] [phone] Lasha Marrufo MD [address] [place] [address] Nurse Triage Social History Tobacco Use Types [...] EDT Triage call returned with BLS # [id number] [employer]. Patient reports dizziness noted with standing. [...] Description 02/18/2025 1:15 PM EST Office Visit [facility] [address] [place] [address] Lasha Marrufo MD [address] [place] [address] documented as of this encounter Goals Goal [...] documented as of this encounter Care Teams Operating Room Technologist Relationship Specialty Start Date End Date Lasha Marrufo MD [address] [place] [address] PCP - General Internal Medicine 12/25/13 Farzad Sandhu MD [address] [place] [address] Cardiology 11/08/24 documented as of this encounter
--- OUTSIDE RECORDS SUMMARY | 2024-12-30 18:12 | XMS_ITS | Encounter Summary ---
Author Organization [employer] Address [address] [place] [address] [address] [place] [address] Care Team Providers Care Career Advisor Name Role Phone Lasha Marrufo MD Primary Care Provide r Farzad Sandhu MD Unavailable [phone] Reason for Visit * Reason Comments Med Refill Encounter Details Date Type Department Care Team (Late st Contact Info) Description 03/09/2022 Refill [facility] [address] [place] [address] [phone] Lasha Marrufo MD [address] [place] [address] [phone] Acute migraine (Primary Dx) Social History Tobacco [...] Office Visit [facility] [address] [place] [address] [phone] Lasha Marrufo MD [address] [place] [address] [phone] documented as of this encounter Visit Diagnoses Diagnosis Acute migraine- Primary documented in this encounter Care Teams Career Advisor Relationship Specialty Start Date End Date Lasha Marrufo MD [address] [place] [address] PCP - General Internal Medicine 12/25/13 Farzad Sandhu MD [address] [place] [address] Cardiology 11/08/24 documented as of this encounter
--- OUTSIDE RECORDS SUMMARY | 2024-12-30 18:12 | XMS_ITS | Encounter Summary ---
Author Organization [employer] Address [address] [facility] 7t [place] [address] Care Team Providers Care Hot Wort Settler Name Role Phone Lasha Marrufo MD Primary Care Provide r Farzad Sandhu MD Unavailable [phone] Reason for Visit * Reason Comments Med Refill Encounter Details Date Type Department Care Team (Late st Contact Info) Description 10/27/2024 Refill [facility] [address] [place], [place] [phone] Lasha Marrufo MD [address] [place], [place] [phone] Acquired hypothyroidism; Mild intermittent asthma without complication [...] Description 02/18/2025 1:15 PM EST Office Visit [facility] [address] [place] [address] Lasha Marrufo MD [address] [place] [phone] documented as of this encounter Goals Goal [...] documented as of this encounter Care Teams Hot Wort Settler Relationship Specialty Start Date End Date Lasha Marrufo MD [address] [place] [address] PCP - General Internal Medicine 12/25/13 Farzad Sandhu MD [address] [place] [address] Cardiology 11/08/24 documented as of this encounter
--- OUTSIDE RECORDS SUMMARY | 2024-12-30 18:12 | XMS_ITS | Encounter Summary ---
Author Organization [employer] Address [address] [place] [address] [address] [place] [address] Care Team Providers Care Ceramic Tile Mechanic Name Role Phone Lasha Marrufo MD Primary Care Provide r Farzad Sandhu MD Unavailable [phone] Encounter Details Date Type Department Care Team (Late st Contact Info) Description 09/05/2022 Orders Only [facility] [address] [place] [phone] Elsa Julien LPN Social History Tobacco Use [...] EST Office Visit [facility] [address] [place] [address] Lasha Marrufo MD [address] [place] [address] documented as of this encounter Visit Diagnoses Not on filedocumented in this encounter Care Teams Ceramic Tile Mechanic Relationship Specialty Start Date End Date Lasha Marrufo MD [address] [place] [address] PCP - General Internal Medicine 12/25/13 Farzad Sandhu MD [address] [place] [address] Cardiology 11/08/24 documented as of this encounter
--- OUTSIDE RECORDS SUMMARY | 2024-12-30 18:12 | XMS_ITS | Encounter Summary ---
Author Organization [employer] Address [address] [place] [address] [address] [place] [address] Care Team Providers Care Chick Sexer Name Role Phone Lasha Marrufo MD Primary Care Provide r Farzad Sandhu MD Unavailable Encounter Details Date Type Department Care Team (Late st Contact Info) Description 04/13/2022 Orders Only [facility] [address] [place] [phone] Elsa Julien LPN Social History Tobacco Use [...] 1:15 PM EST Office Visit [facility] [address] [place] [address] Lasha Marrufo MD [address] [place] [address] documented as of this encounter Visit Diagnoses Not on filedocumented in this encounter Care Teams Chick Sexer Relationship Specialty Start Date End Date Lasha Marrufo MD [address] [place] [address] PCP - General Internal Medicine 9/24/14 Farzad Sandhu MD [address] [place] [address] Cardiology 11/08/24 documented as of this encounter
--- OUTSIDE RECORDS SUMMARY | 2024-12-30 18:12 | XMS_ITS | Encounter Summary ---
Author Organization [employer] Address [address] [place] [address] [address] [place] [address] Care Team Providers Care Personal Service Representative Name Role Phone Lasha Marrufo MD Primary Care Provide r Farzad Sandhu MD Unavailable [phone] Reason for Visit * Reason Comments Med Refill Encounter Details Date Type Department Care Team (Late Contact Info) Description 09/08/2022 Refill [facility] [address] [place], [place] [phone] Lasha Marrufo MD [address] [place] [address] Acute non intractable tension-type headache; Anxiety Social [...] 1:15 PM EST Office Visit [facility] [address] [place], [place] [phone] Lasha Marrufo MD [address] [place] [address] documented as of this encounter Visit Diagnoses Diagnosis Acute non intractable tension-type headache Anxiety Anxiety state, unspecified documented in this encounter Care Teams Personal Service Representative Relationship Specialty Start Date End Date Lasha Marrufo MD [address] [place] [address] PCP - General Internal Medicine 12/25/13 Farzad Sandhu MD [address] [place] [address] Cardiology 11/08/24 documented as of this encounter
--- OUTSIDE RECORDS SUMMARY | 2024-12-30 18:12 | XMS_ITS | Encounter Summary ---
Author Organization [employer] Address [address] [facility] [address] [place] [address] Care Team Providers Care Vending Machine Operator Name Role Phone Lasha Marrufo MD Primary Care Provide r Farzad Sandhu MD Unavailable [phone] Reason for Visit * Reason Onset Date Comments Referral 10/21/2024 Encounter Details Date Type Department Care Team (Late st Contact Info) Description 10/21/2024 Telephone [facility] [address] [place], [place] [phone] Lasha Marrufo MD [address] [place] [address] Referral Social History Tobacco Use Types Packs/Day [...] for a long wood eye lasik in [place]. Any questions contact pt at [phone]. documented in this encounter Plan of Treatment Upcoming Encounters Date Type Department Care Team (Late st Contact Info) Description 02/18/2025 1:15 PM EST Office Visit [facility] [address] [place] [address] Lasha Marrufo MD [address] [place] [address] documented as of this encounter Goals Goal [...] documented as of this encounter Care Teams Vending Machine Operator Relationship Specialty Start Date End Date Lasha Marrufo MD [address] [place] [address] PCP - General Internal Medicine 12/25/13 Farzad Sandhu MD [address] [place] [address] Cardiology 11/08/24 documented as of this encounter
--- OUTSIDE RECORDS SUMMARY | 2024-12-30 18:12 | XMS_ITS | Encounter Summary ---
Author Organization [employer] Address [address] [facility] [address] [place] [address] Care Team Providers Care Dry Box Tender Name Role Phone Lasha Marrufo MD Primary Care Provide r Farzad Sandhu MD Unavailable [phone] Reason for Visit * Reason Onset Date Comments appt PA approved 12/22/2023 Encounter Details Date Type Department Care Team (Late st Contact Info) Description 12/22/2023 Telephone [facility] [address] [place] [address] Jeanne Arreola, DDS [address] [place] [address] appt PA approved Social History Tobacco Use [...] Visit [facility] [address] [place], [place] [phone] Lasha Marrufo MD [address] [place] [address] documented as of this encounter Goals Goal [...] documented as of this encounter Care Teams Dry Box Tender Relationship Specialty Start Date End Date Lasha Marrufo MD [address] [place] [address] PCP - General Internal Medicine 12/25/13 Farzad Sandhu MD [address] [place] [address] Cardiology 11/08/24 documented as of this encounter
--- OUTSIDE RECORDS SUMMARY | 2024-12-30 18:12 | XMS_ITS | Clinical Summary ---
Author Organization [facility] Address [address] [place] [address] [place] [address] Phone Care Team Providers Care Director Title Name Role Phone Pcp, Unknown Primary Care [...] file Medical Devices Not on file Insurance [facility] C3 ACO C3 ACO C3 ACO C3 ACO ACO C3 ACO C3 ACO C[address] [facility] C3 ACO Care Teams Director Title Relationship Specialty Start Date End Date Pcp, Unknown PCP - General 08/29/19 Additional Source Comments The information contained in this document represents components of the legal health record. It is not the complete legal health record.[facility]
--- OUTSIDE RECORDS SUMMARY | 2024-12-30 18:12 | XMS_ITS | Data Portability ---
Author Organization [place] [facility], Allergy Address [address] [address] Care Team Providers Care Furniture Assembler And Installer Name Role Phone SARA XAVIER Primary Care [...] copy of the audiogram, a list of [facility] hearing aid providers, and medical clearance for [...] recorded . Imaging barium swallow study - macedonian speaker 2023 024 [facility] Diagnosit Imaging Dept, [address] [place], [address], 11:05:06 Medication Orders None recorded . Patient [...] 25 04/30/2024 XR, esoph agram See Note [facility] , a member of [facility] Jason greene Name: YUAN MORALES Date of : 1959 Reason for Exam: DYSPHA SAVANAH, UNSPEC IFIED Exam Date: 2024 [id number] EST Report Status : Final Orderi ng Provid er: LAURIE HYDE PCP: PIOTR GS: Double contra st esopha gram perfor med. COMPAR BENJAMIN: No prior esopha gram imagin g HISTOR Y: Jason greene is a 64-yea r-old female with histor y of dyspha savanah, GERD. Certified First Assistant radiog raphs: 1 view chest radiog raph [...] Date: 2024 16:24 ET [facility]st [id number] Transc ribed By: Self Edit Transc ribed Date: 2024 13:04 ET Reside nt/PA/ DIRECT CARE PROFESSIONAL: Halley Fishman [facility] [address] [facility], [place], [address], 05/15/2024 18:16:30 Result Notes Documentation Provider Name and Address Organization Details Recorded Time Xr, Esophagram : See Note [facility], a member of [employer] Patient Name: YUAN WATERS Date of : 1960 Reason for Exam: DYSPHAGIA, UNSPECIFIED Exam Date: 04/30/2024 [id number] EST Report Status: Final Ordering Provider: LAURIE HYDE PCP: FINDINGS: Double contrast esophagram performed. COMPARISON: No prior esophagram imaging HISTORY: Patient is a 64-year-old female with history of dysphagia, GERD. Certified First Assistant radiographs: 1 view chest radiograph demonstrates cardiac [...] Signed Date: 05/01/2024 16:24 ET Workstation ID: [id number] Transcribed By: Self Edit Transcribed Date: 04/30/2024 13:04 ET Resident/PA/DIRECT CARE PROFESSIONAL: Halley Fishman MD [address] [place] [address], [phone], [place] [facility] 05/15/2024 18:16:30 Problems Name Problem SNOMED Code Status Onset Date Resolution Date Notes Provider Name and Address Organization Details Recorded Time Otalgia of left ear 5480010999 Active 2018 Otalgia, left ear; Note: Date Diagnosed : 07/11/2018 1:20 PM (H92.02) Not Available [facility] 4 02:22:05 Sensorine ural hearing loss of bilateral ears 315220854 Active 2019 Sensorine ural hearing loss, bilateral ; Note: Date Diagnosed : 0 2:11 PM (H90.3) Not Available [facility] 4 02:22:06 Impacted cerumen in right ear [id number] 40804 Active 2023 LAURIE HYDE MD [address] [facility] [place] [address], [place], [address] , [place] [facility] 4 12:23:59 Dysphagia 00125699 Active 2023 LAURIE HYDE MD [address] [facility] [place] [address], [place], [address] , [place] [facility] 4 10:45:04 Problem Notes None recorded. Procedures Surgical History Date Name Laterality Status Provider Name and Address Organization Details Recorded Time 11/03/2023 FOL_DP completed LAURIE HYDE MD [address] [place] [address],[place] [address], [place], [address], [place] [facility] 11/03/2023 10:45:32 08/30/2023 Wax_DP completed LAURIE HYED MD [address] [place] [address],[place] [address], [place], [address], [place] [facility] 08/30/2023 12:23:50 08/30/2023 Air only Audio - 60586 completed SHWETA ALLEN MA, CCC-A [address] [facility],[place] [address], [place], [address], [place] [facility] 08/30/2023 11:05:08 08/30/2023 SRT & Tymps - 67282 & 35428 completed SHWETA ALLEN MA, CCC-A [address] [facility],[place] [address], [place], [address], [place] [facility] 08/30/2023 11:05:44 Imaging Results None recorded. Procedure Notes None recorded. Medical Equipment None Reported. Allergies Allergen ID Allergen Name Allergen Category Reaction Reaction Severity Criticality Documentation Date Start Date Code Code System Note Provider Name and Address Organization Details Recorded Time 55919 pseudoeph edrine Not available other Not available Not available 08/15/2023 8896 RxNorm React ion: unkno wn, unspe cifie d;; Not Available [facility] 00:54:32 Medications Name Sig Start Date Stop Date Status Note LastModified by Organization Details LastModified Time cyclobenzapr ine 10 mg tablet 2018 active Medication ID: [id number] Durat ion Value: 10 Brand Name: cyclobenzapr ine Send Method: E-Prescribed Subs Allowed: subs OK Special Instruction: TAKE 1 TABLET BY MOUTH THREE TIMES DAILY Medica tionGenericN soo: cyclobenzapr ine Not Available Not Available Not Available ipratropium 0.5 mg-albuterol 3 mg (2.5 mg base)/3 mL nebulization soln 2018 active Medication ID: [id number] Durat ion Value: 8 Brand Name: ipratropium- albuterol Se nd Method: E-Prescribed Subs Allowed: subs OK Special Instruction: INHALE 1 AMPULE USING A NEBULIZER FOUR TIMES DAILY ONLY FOR WHEEZING & NOT FOR COUGH Medica tionGenericN soo: ipratropium- albuterol Not Available Not Available Not Available ranitidine 300 mg tablet 2018 active Medication ID: [id number] Durat ion Value: 30 Brand Name: ranitidine HCl Send Method: E-Prescribed Subs Allowed: subs OK Special Instruction: TAKE 1 TABLET TWICE DAILY Medica tionGenericN soo: ranitidine HCl Not Available Not Available Not Available metoprolol succinate ER 100 mg tablet,exten ded release 24 hr 2018 active Medication ID: [id number] Durat ion Value: 30 Brand Name: metoprolol succinate Se nd Method: E-Prescribed Subs Allowed: subs OK Special Instruction: TAKE 1 TABLET EVERY EVENING Medi cationGeneri cName: metoprolol succinate Not Available Not Available Not Available clobetasol 0.05 % topical cream 2018 active Medication ID: [id number] Durat ion Value: 15 Brand Name: clobetasol S end Method: E-Prescribed Subs Allowed: subs OK Special Instruction: APPLY TO THE AFFECTED AREA(S) SPARINGLY TWICE DAILY Medica tionGenericN soo: clobetasol Not Available Not Available Not Available clopidogrel 75 mg tablet 2018 active Medication ID: [id number] Durat ion Value: 30 Brand Name: clopidogrel Send Method: E-Prescribed Subs Allowed: subs OK Special Instruction: TAKE 1 TABLET EVERYDAY AT NOON [facility] clop[facility]ogrel Not Available Not Available Not Available aspirin 81 mg tablet,delay ed release 2018 active Medication ID: [id number] Durat ion Value: 30 Brand Name: aspirin Send Method: E-Prescribed Subs Allowed: subs OK Special Instruction: TAKE 1 TABLET EVERY MORNING Medi cationGeneri cName: aspirin Not Available Not Available Not Available levothyroxin e 75 mcg tablet 2018 active Medication ID: [id number] Durat ion Value: 30 Brand Name: levothyroxin e Send Method: E-Prescribed Subs Allowed: subs OK Special Instruction: TAKE 1 TABLET EVERY MORNING Medi cationGeneri cName: levothyroxin e Not Available Not Available Not Available dicyclomine 20 mg tablet 2018 active Medication ID: [id number] Durat ion Value: 30 Brand Name: dicyclomine Send Method: E-Prescribed Subs Allowed: subs OK Special Instruction: TAKE 1 TABLET BY MOUTH 2-4 TIMES PER DAY Medicati onGenericNam e: dicyclomine Not Available Not Available Not Available verapamil ER (PM) 300 mg capsule 24hr pellet CT,ext.relea se 2018 active Medication ID: [id number] Durat ion Value: 30 Brand Name: verapamil Se nd Method: E-Prescribed Subs Allowed: subs OK Special Instruction: TAKE 1 CAPSULE EVERY DAY AT NOON [facility] me: verapamil Not Available Not Available Not Available nitroglyceri n 0.4 mg sublingual tablet 2018 active Medication ID: [id number] Durat ion Value: 8 Brand Name: nitroglyceri n Send Method: E-Prescribed Subs Allowed: subs OK Special Instruction: DISSOLVE 1 TABLET UNDER THE TONGUE EVERY 5 MINUTES NEEDED FOR CHEST PAIN. DO NOT EXCEED A TOTAL OF 3 DOSES IN 15 MINUTES. Med icationGener icName: nitroglyceri n Not Available Not Available Not Available docusate sodium 100 mg capsule 2018 active Medication ID: [id number] Durat ion Value: 30 Brand Name: docusate sodium Send Method: E-Prescribed Subs Allowed: subs OK Special Instruction: TAKE 1 CAPSULE TWICE DAILY IN THE MORNING AND IN THE EVENING Medi cationGeneri cName: docusate sodium Not Available Not Available Not Available montelukast 10 mg tablet 2018 active Medication ID: [id number] Durat ion Value: 30 Brand Name: montelukast Send Method: E-Prescribed Subs Allowed: subs OK Special Instruction: TAKE 1 TABLET BY MOUTH EVERY MORNING Medi cationGeneri cName: montelukast Not Available Not Available Not Available Proventil HFA 90 mcg/actuatio n aerosol inhaler 2018 active Medication ID: [id number] Durat ion Value: 18 Brand Name: Proventil HFA Send Method: E-Prescribed Subs Allowed: subs OK Special Instruction: INHALE 2 PUFFS BY MOUTH EVERY 4 TO 6 HOURS NEEDED Medic ationGeneric Name: Proventil HFA Not Available Not Available Not Available hydralazine 50 mg tablet 2018 active Medication ID: [id number] Durat ion Value: 30 Brand Name: hydralazine Send Method: E-Prescribed Subs Allowed: subs OK Special Instruction: TAKE 1 TABLET THREE TIMES DAILY IN THE MORNING, AT NOON, AND IN THE EV ENING may take extra dose if blood pressure is elevated Med icationGener icName: hydralazine Not Available Not Available Not Available furosemide 20 mg tablet 2018 active Medication ID: [id number] Durat ion Value: 30 Brand Name: furosemide S end Method: E-Prescribed Subs Allowed: subs OK Special Instruction: TAKE 1 TABLET EVERY MORNING [facility] cationGeneri cName: furosemide Not Available Not Available Not Available polyethylene glycol 3350 17 gram/dose oral powder 2018 active Medication ID: [id number] Durat ion Value: 30 Brand Name: polyethylene glycol 3350 Send Method: E-Prescribed Subs Allowed: subs OK Special Instruction: TAKE 17 GM MIXED IN 8 OUNCES OF WATER ONCE DAILY Medica tionGenericN soo: polyethylene glycol 3350 Not Available Not Available Not Available betamethason e dipropionate 0.05 % topical ointment 2018 active Medication ID: [id number] Durat ion Value: 15 Brand Name: betamethason e dipropionate Send Method: E-Prescribed Subs Allowed: subs OK Special Instruction: APPLY TO THE AFFECTED AREA(S) SPARINGLY TWICE DAILY Medica tionGenericN soo: betamethason e dipropionate Not Available Not Available Not Available losartan 100 mg tablet 2018 active Medication ID: [id number] Durat ion Value: 30 Brand Name: losartan Sen d Method: E-Prescribed Subs Allowed: subs OK Special Instruction: TAKE 1 TABLET EVERY DAY AT NOON Medicat ionGenericNa me: losartan Not Available Not Available Not Available fluticasone propionate 50 mcg/actuatio n nasal spray,suspen jenny 2018 active Medication ID: [id number] Durat ion Value: 30 Brand Name: fluticasone propionate S end Method: E-Prescribed Subs Allowed: subs OK Special Instruction: USE 2 SPRAYS IN EACH NOSTRIL EVERY DAY Medicati onGenericNam e: fluticasone propionate Not Available Not Available Not Available Mapap Arthritis Pain 650 mg tablet,exten ded release 2018 active Medication ID: [id number] Durat ion Value: 30 Brand Name: Mapap Arthritis Pain Send Method: E-Prescribed Subs Allowed: subs OK Special Instruction: TAKE 1 TABLET BY MOUTH EVERY 8 HOURS NEEDED Medic ationGeneric Name: Mapap Arthritis Pain Not Available Not Available Not Available rosuvastatin 40 mg tablet 2018 active Medication ID: [id number] Durat ion Value: 30 Brand Name: rosuvastatin Send Method: E-Prescribed Subs Allowed: subs OK Special Instruction: TAKE 1 TABLET EVERY EVENING Medi cationGeneri cName: rosuvastatin Not Available Not Available Not Available topiramate 50 mg tablet 2018 active Medication ID: [id number] Durat ion Value: 30 Brand Name: topiramate S end Method: E-Prescribed Subs Allowed: subs OK Special Instruction: TAKE 1 AND 1/2 TABLETS AT BEDTIME Medi cationGeneri cName: topiramate Not Available Not Available Not Available duloxetine 60 mg capsule,steffen yed release 2018 active Medication ID: [id number] Durat ion Value: 30 Brand Name: duloxetine S end Method: E-Prescribed Subs Allowed: subs OK Special Instruction: TAKE 1 CAPSULE BY MOUTH EVERY MORNING Medi cationGeneri cName: duloxetine Not Available Not Available Not Available Flovent HFA 220 mcg/actuatio n aerosol inhaler 2018 active Medication ID: [id number] Durat ion Value: 30 Brand Name: Flovent HFA Send Method: E-Prescribed Subs Allowed: subs OK Special Instruction: INHALE 2 PUFFS TWICE DAILY RINSE MOUTH AFTER USING. Medic ationGeneric Name: Flovent HFA Not Available Not Available Not Available Alaway 0.025 % (0.035 %) eye drops 2018 active Medication ID: [id number] Durat ion Value: 30 Brand Name: Castro Send Method: E-Prescribed Subs Allowed: subs OK Special Instruction: PLACE 1 DROPS IN EACH EYE TWICE DAILY FOR ITCHING Medi cationGeneri cName: Alaway Not Available Not Available Not Available Vitals Date Recorded Body height Body mass index (BMI) Body weight Provider Name and Address Organization Details Last Updated DateTime 08/30/2023 167.64 cm 37.4 kg/m2 819012.43 g Sangita Sharp [facility] 08/30/2023 12:06:43 Date Recorded Body height Body mass index (BMI) Body weight Provider Name and Address Organization Details Last Updated DateTime 11/03/2023 167.64 cm 37.4 kg/m2 527862.43 g Sangita Sharp [facility] 11/03/2023 10:33:41 Social History None recorded. Functional Status None recorded. Mental Status None recorded. Family History Nothing Reported. Medical History No medical history recorded. Gynecological HistoryNo gynecological history recorded. Obstetrics History GPAL:G 0 P 0 0 0 0 Past Encounters Encounter ID Performer Location Encounter Start Date Encounter Closed Date Diagnosis/Indication Diagnosis SNOMED-CT Code Diagnosis ICD10 Code Diagnosis IMO Codes Diagnosis Note [id number] LAURIE HYDE MD [facility] [address] [address] 08/30/2023 10:23:58 08/30/2023 12:24:53 Sensorineural hearing loss of bilateral ears 966506975 H90.3 Mild-moder ate SNHL for both ears.Tympa nogram: Type A for both ears. Impacted c erumen in right ear [id number] 685466 H61.21 cerumen removed from right ear [id number] LAURIE HYDE MD [facility] [address] [address] 11/03/2023 10:31:27 11/03/2023 10:55:33 Dysphagia 04214275 R13.10 Health Concerns Section Related Observation LastModified by Organization Detai ls LastModified Time None Recorded Concern Status LastModified by Organization Details LastModified Time None Recorded Advance Directives Directive None Recorded Payers Insurance Date Sequence Insurance Name Policy Number Policy Sen Covered Member ID Sen Member ID Guarantor Name 05/21/2024 1 [place] [facility] (MEDICAID) Yuan Waters [id number] Yuan Waters Notes Date Note Type Note Provider Name and Address Organization Details Recorded Time 08/30/19 24 text/htm l ROS as noted in the HPI macedonian - ipadprogressive hearing losslast test with our office 03/30/2020no previous trial of amplificationno sig noise exposure LAURIE HYDE MD [address] [place] [address], [address], [facility] - [facility] 08/30/2023 12:25:03 11/03/19 24 text/htm l ROS as noted in the HPI macedonian - familydysphagiadifficulty swallow pillshead and neck turn to left side allows to cough pill outonset about 07/2023voice normalno hemoptysisno otalgia tobacco - 1/2ppd LAURIE HYDE MD [address] [place] [address],[place] [address], [place], [address], [facility] 11/03/2023 10:54:25 OBGyn Episode No OBEpisode recorded.
--- OUTSIDE RECORDS SUMMARY | 2024-12-30 18:12 | XMS_ITS | Clinical Summary ---
Author Organization [facility] Address [address] [place] [address] Phone Care Team Providers Care Distribution Center Assistant Name Role Phone Lasha Castillo MD Primary [...] Orthopedic Surgery [facility] [address] [facility] [address] [place] [address] Estevan Viramontes DPM Controlled type [...] AM EDT Office Visit Orthopedic Surgery - [place] [address] [facility] [address] [place] [address] Estevan Viramontes, DPAmy [address] [facility] [address] [place] [address] Health Maintenance Due Date Last Done Comments [...] topic Insurance [place] - [place] Care Teams Distribution Center Assistant Relationship Specialty Start Date End Date Lasha Castillo MD [address] [place] [phone] PCP - General Internal Medicine 09/09/24
--- OUTSIDE RECORDS SUMMARY | 2024-12-30 18:12 | XMS_ITS | Encounter Summary ---
Author Organization [employer] Address [address] [facility] [address] [place] [address] Care Team Providers Care Machine Applicator Cementer Name Role Phone Lasha Marrufo MD Primary Care Provide r Farzad Sandhu MD Unavailable [phone] Encounter Details Date Type Department Care Team ([facility] st Contact Info) Description 10/31/2024 Results Follow-Up [facility] [address] [place] [address] Lasha Marrufo MD [address] [place] [address] SANDEEP Screen,IFA, with Reflex to Titer and [...] 1:29 PM EDT Please fax labs to [facility] Greaser and schedule appointment documented in this encounter Plan of Treatment Upcoming Encounters Date Type Department Care Team (Late st Contact Info) Description 02/18/2025 1:15 PM EST Office Visit [facility] [address] [place] [phone] Lasha Marrufo MD [address] [place] [address] documented as of this encounter Goals Goal [...] documented as of this encounter Care Teams Machine Applicator Cementer Relationship Specialty Start Date End Date Lasha Marrufo MD [address] [place] [address] PCP - General Internal Medicine 12/25/13 Farzad Sandhu MD [address] [place] [address] Cardiology 11/08/24 documented as of this encounter
--- OUTSIDE RECORDS SUMMARY | 2024-12-30 18:12 | XMS_ITS | Encounter Summary ---
Author Organization [employer] Address [address] [facility] [address] [place] [address] Care Team Providers Care Real Estate Agent/Broker Name Role Phone Lasha Marrufo MD Primary Care Provide r Farzad Sandhu MD Unavailable [phone] Reason for Visit * Reason Onset Date Comments Interoffice Coordination 11/08/2024 Encounter Details Date Type Department Care Team (Late st Contact Info) Description 11/08/2024 Results Follow-Up [facility] [address] [place], [place] [phone] Nancy Frye, RN [address] [place], [place] [phone] ECG 12 lead Social History Tobacco Use [...] EDT Faxed EKG and echo results to [facility] Cards as below * Telephone Encounter [...] when patient is being seen by her rn medical inpatient services for new onset of Atrial Fibrillation ----- Message ----- From: Humza Loza MD Sent: 11/06/2024 6:48 PM EDT To: Lasha Jara MD documented in this encounter Plan of Treatment Upcoming Encounters Date Type Department Care Team (Late st Contact Info) Description 02/18/2025 1:15 PM EST Office Visit [facility] [address] [place] [address] Lasha Marrufo MD [address] [place] [address] documented as of this encounter Goals Goal [...] documented as of this encounter Care Teams Real Estate Agent/Broker Relationship Specialty Start Date End Date Lasha Marrufo MD [address] [place] [address] PCP - General Internal Medicine 12/25/13 Farzad Sandhu MD [address] [place] [address] Cardiology 11/08/24 documented as of this encounter
--- OUTSIDE RECORDS SUMMARY | 2024-12-30 18:13 | XMS_ITS | Encounter Summary ---
Author Organization [employer] Address [address] [place] [address] [address] [place] [address] Care Team Providers Care Bander Hand Name Role Phone Lasha Marrufo MD Primary Care Provide r Farzad Sandhu MD Unavailable [phone] Encounter Details Date Type Department Care Team (Late st Contact Info) Description 05/03/2022 Orders Only [facility] [address] [place] [phone] Elsa Julien LPN Social History Tobacco Use [...] Description 02/18/2025 1:15 PM EST Office Visit [facility] [address] [place] [address] Lasha Marrufo MD [address] [place] [address] documented as of this encounter Visit Diagnoses Not on filedocumented in this encounter Care Teams Bander Hand Relationship Specialty Start Date End Date Lasha Marrufo MD [address] [place] [address] PCP - General Internal Medicine 9/24/14 Farzad Sandhu MD [address] [place] [address] Cardiology 11/08/24 documented as of this encounter
--- OUTSIDE RECORDS SUMMARY | 2024-12-30 18:13 | XMS_ITS | Encounter Summary ---
Author Organization [employer] Address [address] [place] [address] [address] [place] [address] Care Team Providers Care Museum Attendant Name Role Phone Lasha Marrufo MD Primary Care Provide r Farzad Sandhu MD Unavailable [phone] Encounter Details Date Type Department Care Team (Late st Contact Info) Description 03/31/2022 Telephone [facility] MEDICINE [address] [place] [address] Lasha Marrufo MD [address] [place] [address] Social History Tobacco Use Types Packs/Day Years [...] Office Visit [facility] [address] [place] [phone] Lasha Marrufo MD [address] [place] [address] documented as of this encounter Visit Diagnoses Not on filedocumented in this encounter Care Teams Museum Attendant Relationship Specialty Start Date End Date Lasha Marrufo MD [address] [place] [address] PCP - General Internal Medicine 12/25/13 Farzad Sandhu MD [address] [place] [address] Cardiology 11/08/24 documented as of this encounter
--- OUTSIDE RECORDS SUMMARY | 2024-12-30 18:13 | XMS_ITS | Clinical Summary ---
Author Organization [employer] Address [address] [place] [address] [address] [place] [address] Care Team Providers Care Crown Presser Name Role Phone Lasha Marrufo MD Primary Care Provide r Farzad Sandhu MD Unavailable [phone] Allergies Active Allergy Reactions Criticality Noted [...] 3 023 Active Blood Glucose Monitoring Suppl (Socitive Blood Glucose) w/Device kitIndications:Ty pe 2 diabetes mellitus without complication, without long-term current use of insulin (HCC) 1 kit 2 times daily. 1 kit 023 Active glucose blood test stripIndications: Type 2 diabetes mellitus without complication, without long-term current use of insulin (HCC) 1 each by Other route 2 times [...] ATERIAL ES ALTO) Active TRUEplus Lancets 33G misc TEST BLOOD SUGAR TWICE DAILY Active magnesium [...] FOR MUSCLE SPASMS 30 tablet 025 Active DULoxetine (Cymbalta) [address] [...] the morning. 90 tablet 1 025 Active apixaban (Eliquis) 5 MG tablet Take 1 tablet (5 mg) by mouth 2 times daily. 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 Take with full glass of water. 60 tablet 1 025 2024 Active butalbital-acetam inophen-caffeine 50-325-40 MG tabletIndications :Acute non intractable tension-type headache TAKE 1 TABLET BY MOUTH ONCE DAILY NEEDED FOR HEADACHE. MAY REPEAT IN 12 HOURS IF NEEDED 20 tablet 025 Active metFORMIN XR (Glucophage-XR) 500 MG 24 hr tablet TAKE 2 TABLETS BY MOUTH TWICE DAILY IN THE MORNING AND EVENING 360 tablet 1 025 Active metFORMIN XR (Glucophage-XR) 500 MG 24 hr tablet TAKE 2 TABLETS BY MOUTH TWICE DAILY IN THE MORNING AND EVENING 360 tablet 1 025 2024 Discontinued butalbital-acetam inophen-caffeine 50-325-40 MG tabletIndications :Acute non intractable tension-type headache TAKE 1 TABLET BY MOUTH ONCE DAILY AT ONSET OF HEADACHE, MAY REPEAT IN 12 HOURS NEEDED 20 tablet 025 2024 Discontinued Active Problems Problem Noted Date Diagnosed Date Atrial fibrillation ([facility]/HCC) 11/06/2024 Assessment & Plan (12/10/2024 1:23 PM EDT): Newly diagnosed Under the care of Cardiology last note 11/18/2024 On Eliquis Assessment & Plan (11/06/2024 6:47 PM EDT): Chadvasc 3 points Rate controlled, asymptomatic Start eliquis risk vs benefits discussed, told to discuss with boatswain's mate if watchman is indicated Pelvic pain 09/05/2024 Assessment & Plan (12/10/2024 1:19 PM EDT): Patient with c/o pelvic pain and recurrent Bacterial vaginosis. Pt requesting to see a Machine Splitter Pelvic US 11/08/2024 was normal Seen by SCHOOL PLANT CONSULTANT 11/26/2024 Dr Ochoa, did not find anything specific Assessment & Plan (09/05/2024 2:34 PM EDT): Patient with c/o pelvic pain and recurrent Bacterial vaginosis. Pt requesting to see a Machine Splitter Plan: Obtain Pelvic US Referral to SCHOOL PLANT CONSULTANT Heart murmur 09/05/2024 Assessment & Plan (12/10/2024 [...] Smear: NL 09/2021 will need a repeat [phone] Colonoscopy: 06/2019 Dr Delgado, Tubular adenoma Vaccines: Td Pt claims she had one in [place] in 2013. Assessment & Plan (10/12/2023 11:21 AM EDT): Mammogram: 08/2023 Normal Pap Smear: NL 09/2021 will need a repeat [phone] Colonoscopy: 06/2019 Dr Delgado, Tubular adenoma Vaccines: Td Pt claims she had one in [place] in 2013. Assessment & Plan (07/18/2023 1:58 PM EDT): Mammogram: 04/12/2023 Normal Pap Smear: NL 09/2021 will need a repeat [phone] Colonoscopy: 06/2019 Dr Delgado, Tubular adenoma Vaccines: Flu shot Td Pt claims she had one in [place] in 2013. Abdominal wall hernia 07/18/2023 Assessment [...] 11:40 AM EST): Under the care of Production Control Analyst Unfortunately continues to smoke, not interested in [...] 0.75 q week Eye exam : 05/31/2024 [facility] Microalbumin ordered Pt on [...] 0.75 q week Eye exam : 05/31/2024 [facility] Microalbumin ordered Pt on [...] of both eyes with inactive choroidal neovascularization (CMS/HCC) 09/27/2022 Overview (09/27/2022): Ongoing anti-VEGF injections right [...] x-ray to ensure resolution Interested in Chantix Assessment & Plan (02/13/2024 11:47 AM EST): [...] Encounters Date Type Department Care Team Description 12/22/2024 Refill [facility] [address] [place] [phone] Lasha Marrufo MD 12/12/2024 Refill [facility] [address] [place] [address] Joanne Jeffery ANP Acute non intractable tension-type headache 12/10/2024 1:15 PM EDT Office Visit [facility] [address] [place] [phone] Lasha Marrufo MD Type 2 diabetes mellitus without complication, without long-term current use of insulin (CMS/HCC) (Primary Dx); Pelvic pain; Smoker; Longstanding persistent atrial fibrillation (CMS/HCC); Heart murmur; Preventative health care; Positive SANDEEP (antinuclear antibody) 12/10/2024 Travel 12/09/2024 Telephone [facility] [place] [address] Lasha Marrufo MD chart prep 11/29/2024 Telephone [facility] [place] [address] Lasha Marrufo MD Nurse Triage 11/25/2024 Telephone [facility] [place] [address] Nancy Frye, FELT TIPPING MACHINE TENDER Follow-up 11/20/2024 Telephone [facility] [place] [address] Lasha Marrufo MD Care Coordination 11/20/2024 Orders Only GENERIC EXTERNAL DATA DEPARTMENT Provider, Generic External Data 11/20/2024 Travel 11/19/2024 Telephone [facility] [place] [address] Lasha Marrufo MD Results 11/19/2024 Telephone [facility] [place] [address] Lasha Marrufo MD Nurse Triage 11/18/2024 Refill [facility] [address] [facility] [place] [address] Lasha Marrufo MD Type 2 diabetes mellitus without complication, 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 (CMS/HCC) 11/11/2024 Travel 11/08/2024 Results Follow-Up [facility] [place] [address] Nancy Frye, RN ECG 12 lead 11/06/2024 6:20 PM EDT Office Visit [facility] [place] [address] Humza Morfin MD Longstanding persistent atrial fibrillation (CMS/HCC) (Primary Dx) 11/06/2024 Travel 11/06/2024 Telephone [facility] [place] [address] Nancy Frye, RN Results 11/01/2024 Refill [facility] [address] [facility] [place] [address] Lasha Marrufo MD Acute non intractable tension-type headache 10/31/2024 Results Follow-Up [facility] [address] [place] [address] Lasha Marrufo MD SANDEEP Screen,IFA, with Reflex to Titer and Pattern 10/29/2024 Orders Only [facility] [address] [place] [address] Lasha Marrufo MD Type 2 diabetes mellitus without complication, without long-term current use of insulin ([facility]) (Primary Dx) 10/29/2024 Refill [facility] [address] [place] [address] Lasha Marrufo MD Mild intermittent asthma without complication; Acquired hypothyroidism 10/28/2024 Refill [facility] [address] [place] [address] Lasha Marrufo MD Acquired hypothyroidism; Mild intermittent asthma without complication 10/28/2024 Refill [facility] [address] [place], [place] [phone] Lasha Marrufo MD Mild intermittent asthma without complication; Acquired hypothyroidism 10/27/2024 Refill [facility] [address] [place] [address] [phone] Lasha Marrufo MD Acquired hypothyroidism; Mild intermittent asthma without complication 10/21/2024 Telephone [facility] [address] [place] [phone] Lasha Marrufo MD Referral 10/08/2024 Refill [facility] [address] [place] [address] [phone] Lasha Marrufo MD 10/03/2024 Orders Only GENERIC EXTERNAL DATA DEPARTMENT Provider, Generic External Data from Last 3 Months Immunizations Immunization Administration [...] Description 02/18/2025 1:15 PM EST Office Visit [facility] [address] [place] [address] Lasha Marrufo MD [address] [place], [place] [phone] Health Maintenance Due Date Last Done Comments [...] Cancer Screening 06/25/2024 Eye Exam 09/09/2024 09/09/2022, 06/0 12/2022, 09/09/2022, Additional history exists COVID-19 Vaccine ( - season) 2024 06/29/2020, [...] complication, without long-term current use of insulin ([facility]) POCT GLUCOSE Routine 12/10/2024 1:11 PM EDT Type 2 diabetes mellitus without complication, without long-term current use of insulin (CMS/[facility]) SARS COV2/INFLUENZA A/B AND RSV RNA QL [...] long-term current use of insulin (CMS/[facility]) HIV 1/2 ANTIGEN/ANTIBODY, FOURTH GENERATION W/RFL Routine [...] PM EDT Narrative 12/10/2024 2:41 PM EDT [address] [address] XRay Report Signed Patient: Arianna Pineda MR#: [id number] : 1960 Acct:[id number] Age/Sex: 64 / F ADM Date: 12/10/24 Loc: HO.HHCX Attending Dr: Lasha Castillo MD Ordering Physician: Lasha Castillo MD Date of Service: 12/10/24 Procedure(s): XR chest 2V Accession Number(s): [id number] cc: Lasha Castillo MD Reason for Exam: [...] 12/10/24 1439 DD/ 1429 TD/TT: 12/10/24 1430 Teletray Operator: Procedure Note Donotuseinterpreter, Image - 12/10/[address] [address] XRay Report Signed Patient: Arianna Pineda EMR#: [id number] : 1960cct:[id number] Age/Sex: 64 / FADM Date: 12/10/24 Loc: HO.HHCX Attending Dr: Lasha Castillo MD Ordering Physician: Lasha Castillo MD Date of Service: 12/10/24 Procedure(s): XR chest 2V Accession Number(s): [id number] cc: Lasha Castillo MD Reason for Exam: [...] 12/10/24 1439 DD/ 1429 TD/TT: 12/10/24 1430 Teletray Operator: Lasha Jara MD IMG XR PROCEDURES Fin al Result * (ABNORMAL) POCT Hgb A1c (12/10/2024 1:12 PM EDT) Hemoglobin A1C 6.1(A) 4.0 - 5.7 % QC Media Lot # [id number] Lot# Expiration Date 531,509 Blood 12/10/2024 1:12 PM EDT Lasha Jara MD POINT OF CARE TEST EN TER/EDIT ORDERABLES Final Result * POCT Glucose (12/10/2024 1:11 PM EDT) Glucose Blood, POC 100 60 - 200 mg/dL QC Media Lot # [id number] Lot# Expiration Date ,047,206 Blood Capillary blood specimen / Unknown 12/10/2024 1:11 PM EDT Lasha Jara MD POINT OF CARE TEST EN TER/EDIT ORDERABLES Final Result * Strep A Nucleic Acid (11/20/2024 12:44 PM EDT) IDNOW SERIAL# [id number] [facility] Strep A Nucleic Acid Negative Negative [facility] Comment:All test results mus t be [...] LAB MICROBIOLOGY - GENERAL ORDERABLES Final Result [facility] [address] [place] [phone] * SARS-CoV-2 RNA, Influenza A/B, and RSV RNA, Ql NAAT (11/20/2024 12:44 PM EDT) Influenza A PCR NEGATIVE Negative [facility] Influenza B PCR NEGATIVE Negative [facility] Resp Syncy Virus RNA Qual PCR NEGATIVE Negative [facility] SARS COV2 PCR NEGATIVE Negative [facility] Comment:All test results mus t [...] use by authorized laboratories.Testing performed on the [employer] GeneXpert utilizingreal-time RT-PCR.All SARS CoV2 and positive influenza A/B results arereported to [facility]. 11/20/2024 12:4 4 PM EDT 11/20/2024 12:50 PM EDT us Generic External Data Provider LAB MICROBIOLOGY - GENERAL ORDERABLES Final Result Performing Organization Address City/State/[facility] Co de Phone Number [facility] [address] [place] [phone] * US Pelvis Transvaginal (11/08/2024 4:45 PM EDT) Anatomical Region Laterality Modality Pelvis Ultrasound 11/08/2024 4:45 PM EDT Narrative 11/08/2024 4:46 PM EDT [address] [address] Ultrasound Report Signed Patient: Arianna Pineda MR#: [id number] : 1960 Acct:[id number] Age/Sex: 64 / F ADM Date: 11/08/24 Loc: HO.US Attending Dr: Sanjay Ochoa MD Ordering Physician: Sanjay Ochoa MD Date of Service: 11/08/24 Procedure(s): US pelvic and transvaginal Accession Number(s): [id number] cc: Lasha Castillo MD; Sanjay Ochoa MD [...] in OV> 11/08/241645 DD/ 44 TD/TT: 11/08/241644 Teletray Operator: Procedure Note Donotuseinterpreter, Image - 11/08/2024 [place] [address] Ultrasound Report Signed Patient: Arianna Pineda EMR#: [id number] : 1960cct:[id number] Age/Sex: 64 / FADM Date: 11/08/24 Loc: HO.US Attending Dr: Sanjay Ochoa MD Ordering Physician: Sanjay Ochoa MD Date of Service: 11/08/24 Procedure(s): US pelvic and transvaginal Accession Number(s): [id number] cc: Lasha Castillo MD; Sanjay Ochoa MD [...] by Emanuel Patterson MD in OV> 11/08/24 164 DD/ 44 TD/TT: 11/08/241644 Teletray Operator: [facility] External Provider IMG US PROCEDURES Final Result * ECG 12 lead (11/06/2024 6:48 PM EDT) Narrative Humza Morfin MD - 11/06/2024 6:48 PM EDT Atrial fibrillation Heat rate 80 Qtc 471 Result [facility] Humza Loza MD ECG ORDERABLES Fi nal Result * (ABNORMAL) CBC auto differential (10/23/2024 10:11 AM EDT) White Blood Count 7.8 4.8 - 10.8 X10*3/uL [facility] Red Blood Count 4.57 4.20 - 5.50 X10*6/uL [facility] Hemoglobin 11.9(L) 12.0 - 16.0 g/dl [facility] Hematocrit 38.6 37.0 - 47.0 % [facility] Mean Corpuscular Volume 84.5 80.0 - 98.0 fL [facility] Mean Corpuscular Hemoglobin 26.0(L) 27.0 - 33.0 pg [facility] Mean Corpuscular HGB Conc 30.8(L) 31.0 - 35.0 g/dl [facility] Red Cell Distribution Width 15.6 11.0 - 16.0 % [facility] Platelet Count 199 160 - 400 X10*3/uL [facility] Mean Platelet Volume 9.6 9.4 - 12.3 fL [facility] Neutrophils Percent Auto 58.7 45 - 73 % [facility] Imm Gran Pct Auto 0.5(H) 0.0 - 0.4 % [facility] Lymphocytes Percent Auto 32.6 20 - 40 % [facility] Monocytes Percent Auto 4.5 2 - 11 % [facility] Eosinophils Percent Auto 3.1 0 - 4 % [facility] Basophils Percent Auto 0.6 0 - 2 % [facility] NRBC Pct Auto 0.0 0.0 - 0.2 /100WBC [facility] Neutrophils Absolute Auto 4.6 2.0 - 8.3 x10*3/uL [facility] Imm Gran Abs Auto 0.04(H) 0.00 - 0.03 X10*3/uL [facility] Lymphocytes Absolute Auto 2.5 1.2 - 4.9 X10*3/uL [facility] Monocytes Absolute Auto 0.4 0.1 - 1.2 X10*3/uL [facility] Eosinophils Absolute Auto 0.2 0.0 - 0.4 X10*3/uL [facility] Basophils Absolute Auto 0.1 0.0 - 0.2 X10*3/uL [facility] NRBC Abs Auto 0.000 0.0 - 0.012 X10*3/uL [facility] Blood Venous blood specimen / Unknown 10/23/2024 10:11 AM EDT 10/23/2024 10:11 AM EDT Lasha Jara MD LAB BLOOD ORDERABLES Final Result [facility] [address] [place] [phone] * HIV-1/2 Antigen and Antibodies, Fourth Generation, with Reflexes (10/23/2024 10:11 AM EDT) HIV AB/AG Nonreactive Nonreactive [facility] Comment:HIV-1 p24 Ag and/or HIV-1/HIV-2 Ab not detected.A test result that is nonreactive does not exclude thepossibility of exposure to or infection with HIV-1 and/orHIV-2. Nonreactive results in this assay for individualswith prior exposure to HIV-1 and/or HIV-2 may be due toantigen and antibody levels that are below the limit ofdetection of this assay.The [employer] HIV Ag/Ab Combo assay result andsupplemental assay results should be interpreted inconjunction with the patient's clinical presentation,history and other laboratory results. If the results areinconsistent with clinical evidence, additional testing issuggested to confirm the result. Blood Venous blood specimen / Unknown 10/23/2024 10:11 AM EDT 10/23/2024 10:11 AM EDT us Lasha Jara MD LAB BLOOD ORDERABLES Final Result [facility] [address] [place], [place] [phone] * (ABNORMAL) SANDEEP Screen,IFA, with Reflex to Titer and Pattern (10/23/2024 10:11 AM EDT) Anti Nuclear Antibody Screen POSITIV E(A) NEGATIVE [facility] Comment:SANDEEP IFA is a first l ine screen for detecting thepresence of up to approximately 150 autoantibodies invarious autoimmune diseases. A positive SANDEEP IFA resultis suggestive of autoimmune disease and reflexes totiter and pattern. Further laboratory testing may beconsidered if clinically indicated.For additional information, please refer tohttp://education.[employer]/faq/KLX270(This link is being provided for informational/educational purposes only.) SANDEEP Titer 1:1280( A) titer [facility] Comment:Reference Range <1:4 0 Negative 1:40-1:80 Low Antibody Level >1:80 Elevated Antibody Level SANDEEP Pattern Nuclear , Nucleol ar(A) [facility] Comment:Nucleolar pattern is associated with systemic sclerosis(scleroderma), systemic sclerosis/polymyositis overlapand Sjogren's syndrome.AC-8,9,10: NucleolarInternational Consensus on SANDEEP Patterns(https://doi.org/10.1515/xuae-7438-5306) SANDEEP TITER 2 (REF LAB) 1:320(A ) titer [facility] Comment:Reference Range <1:4 0 Negative 1:40-1:80 Low Antibody Level >1:80 Elevated Antibody Level SANDEEP Pattern 2 Nuclear , Homogen eous(A) [facility] Comment:Homogeneous pattern is associated with systemic lupuserythematosus (SLE), drug-induced lupus and juvenileidiopathic arthritis.AC-1: HomogeneousInternational Consensus on SANDEEP Patterns(https://doi.org/10.1515/kunz-0940-9361)THIS TEST WAS PERFORMED AT:[facility] [place] [phone] PAUL LEWIS MD SANDEEP TITER 3 TNP [facility] SANDEEP PATTERN 3 NVP [facility] Blood Venous blood specimen / Unknown 10/23/2024 10:11 AM EDT 10/23/2024 10:11 AM EDT us Lasha Jara MD LAB BLOOD ORDERABLES Final Result [facility] [address] [place] [phone] * (ABNORMAL) Lipid Panel, Standard (10/23/2024 10:11 AM EDT) Triglycerides 147 <150 mg/dL [facility] Comment:Desirable Triglyceri de: less than 150 mg/dLBorderline High Triglyceride 150-199 mg/dLHigh Triglyceride: 200-499 mg/dLVery High Triglyceride: greater than or equal to 5OO mg/dL Cholesterol 116 <200 mg/dL [facility] Comment:Desirable Cholestero l: less than 200 mg/dLBorderline High Cholesterol: 200-239 mg/dLHigh Cholesterol: greater than 239 mg/dL LDL Cholesterol Calculated 54 <100 mg/dL [facility] Comment:Desirable LDL: less than 100 mg/dLNear Optimal/Above Optimal LDL: 110- 129 mg/dLBorderline High LDL: 130-159 mg/dLHigh LDL: 160-189 mg/dLVery High LDL: greater than or equal to 190 mg/dL HDL Cholesterol 33(L) >40 mg/dL [facility] Comment:Desirable HDL: great er than 40 mg/dL Note: This HDL assay may give artificially low results in patients with liver disease. Blood Venous blood specimen / Unknown 10/23/2024 10:11 AM EDT 10/23/2024 10:11 AM EDT Lasha Jara MD LAB BLOOD ORDERABLES Final Result [facility] [address] [place] [phone] * (ABNORMAL) Comprehensive Metabolic Panel (10/23/2024 10:11 AM EDT) Sodium 143 135 - 145 mmol/L [facility] Potassium 3.9 3.3 - 5.1 mmol/L [facility] Chloride 111(H) 96 - 108 mmol/L [facility] Carbon Dioxide 26 22 - 29 mmol/L [facility] Anion Gap 10(L) 12 - 20 [facility] Urea Nitrogen (BUN) 12 9 - 16 mg/dL [facility] Creatinine, Serum 0.68 0.5 - 1.4 mg/dL [facility] Estimated Glomerular Filt Rate >60 [facility] Comment:Chronic Kidney Disea se: Estimated GFR < 60 mL/min/1.30m9Rgbdsn Kidney Disease: Estimated GFR < 15 mL/min/1.73m2 Glucose 86 60 - 115 mg/dL [facility] Calcium 9.2 8.4 - 10.2 mg/dL [facility] Bilirubin, Total 0.2 0.0 - 1.0 mg/dL [facility] Aspartate Amino Transferase 24 5 - 31 U/L [facility] Alanine Aminotransferase 23 0 - 31 U/L [facility] Total Protein 7.9 6.5 - 8.0 g/dL [facility] Albumin Level 4.3 3.5 - 5.0 g/dL [facility] Alkaline Phosphatase 129(H) 39 - 117 U/L [facility] Blood Venous blood specimen / Unknown 10/23/2024 10:11 AM EDT 10/23/2024 10:11 AM EDT Lasha Jara MD LAB BLOOD ORDERABLES Final Result [facility] [address] [place] [phone] * US Abdomen Complete (10/23/2024 8:35 AM EDT) Anatomical Region Laterality Modality Abdomen Ultrasound 10/23/2024 8:35 AM EDT Narrative 10/23/2024 9:45 AM EDT [address] [address] Ultrasound Report Signed Patient: Arianna Pineda MR#: [id number] : 1960 Acct:[id number] Age/Sex: 64 / F ADM Date: 10/23/24 Loc: HO.US Attending Dr: Medardo Delgado MD Ordering Physician: Medardo Delagdo MD Date of Service: 10/23/24 Procedure(s): US abdomen complete Accession Number(s): [id number] cc: Medardo Delgado MD; Lasha Castillo MD [...] 10/23/24 0943 DD/ 0835 TD/TT: 10/23/24 0917 Teletray Operator: Procedure Note Donotuseinterpreter, Image - 10/23/[address] [address] Ultrasound Report Signed Patient: Arianna Pineda EMR#: [id number] : 1960cct:[id number] Age/Sex: 64 / FADM Date: 10/23/24 Loc: HO.US Attending Dr: Medardo Delgado MD Ordering Physician: Medardo Delgado MD Date of Service: 10/23/24 Procedure(s): US abdomen complete Accession Number(s): [id number] cc: Medardo Delgado MD; Lasha Castillo MD [...] signed by Nikunj Zarate MD in OV> 10/23/2443 DD/ 4 TD/TT: 10/23/24916 Teletray Operator: [facility] External Provider IMG US PROCEDURES Final Result * HPV DNA, Low/High Risk (10/03/2024 3:17 PM EDT) HPV High Risk Negative Negative [facility] HPV Genotype 16 Negative Negative [facility] HPV Genotype 18 Negative Negative [facility] Comment:HPV testing performe d at [facility] (CLIA#[id number]), [address] [place] [address].Testing for HPV was performed using the Marcella [...] Provider LAB BLOOD ORDERAB LES Final Result [facility] [address] [place] [phone] * Pap Smear (10/03/2024 3:17 PM EDT) 10/03/2024 3:17 PM EDT 10/07/2024 7:55 AM EDT Narrative [facility] - 10/09/2024 1:36 PM EDT ----- ------- Name: Arianna Pineda Age/Sex: 64/F : 1960 Unit#: [id number] Attend Dr: Sanjay Ochoa MD Re10/03/24 Status: [facility] Location: [facility] Disch: ----- ------- SPEC : [id number] RECD: 10/07/24 STATUS: NUNO BARRETO NUM: [id number] COURTNEY: 10/03/[address] [facility] [address]: Sanjay Ochoa MD ENTERED: 10/07/24 [...] will be performed at [facility] (CLIA #[id number]), [address] [place] [address]. Testing for HPV was performed using the [employer] system. The presence of HPV in [...] detected. All professional services are performed by [facility] ([address] [place] [address]; ; CLIA #[id number]). The PAP Test is a screening procedure with the inherent possibility of both false negative and false positive results. Results should be interpreted in the context of historic and current clinical findings. Reliability of the PAP Test is enhanced by performing the test on a regular repetitive basis. CONTINUED ON NEXT PAGE ----- ------- Name: Arianna Pineda Age/Sex: 64/F : 1960 Unit#: [id number] Attend Dr: Sanjay Ochoa MD Re10/03/24 Status: DEP REF Location: [facility] Disch: ----- ------- SPEC : [id number] RECD: 10/07/24 STATUS: NUNO BARRETO NUM: [id number] COURTNEY: 10/03/[address] [facility] [address]: Sanjay Ochoa MD ENTERED: 10/07/24 SP TYPE: Pap Smr OTHR DR: Lasha Castillo MD ORDERED: Pap Smear Copies To: Lasha Castillo MD [address] [address] Sanjay Ochoa MD [facility] [address] [place] [address] ----- ------- Signed (signature on file) ROB Nunes ([facility]) 10/09/24 1336 ----- ------- END OF REPORT us Generic External Data Provider LAB CYTOLOGY AJ WALTERS Final Result [facility] [address] [place] [address] [phone] * Chlamydia/N. Gonorrhoeae RNA, TMA, Urogenitial (10/03/2024 2:44 PM EDT) CT PCR NOT DETECTED Not Detect. [facility] Comment:A not detected test result does [...] psychologicalconsequences. NG PCR NOT DETECTED Not Detect. [facility] Comment:A not detected test result does [...] LAB MICROBIOLOGY - GENERAL ORDERABLES Final Result [facility] [address] [place] [address] [phone] * BI Mammogram Screening Tomosynthesis Bilateral (08/29/2024 10:50 AM EDT) Anatomical Region Laterality Modality Breast Bilateral Mammography 08/29/2024 10:5 0 AM EDT Narrative 09/06/2024 4:28 PM EDT [facility] [address] [place] [address] Mammography Report Signed Patient: Arianna Pineda MR#: [id number] : 1960 Acct:[id number] Age/Sex: 64 / F ADM Date: 08/29/24 Loc: HO.MAMMO Attending Dr: Lasha Castillo MD Ordering Physician: Lasha Castillo MD Resu lts: 2Benign Findings Date of Service: 08/29/24 Follow Up: 1 Year From Orig ina Mammogram Procedure(s): MM tomosynthesis screening BI Accession Number(s): [id number] cc: Lasha Castillo MD EXAMINATION: MM SCREENING [...] 09/06/24 1625 DD/ 1050 TD/TT: 08/29/24 1120 Teletray Operator: Procedure Note Donotcelinafredter, Image - 09/06/2024 [facility] [address] [place] [address] Mammography Report Signed Patient: Arianna Pineda EMR#: [id number] : 1960cct:[id number] Age/Sex: 64 / FADM Date: 08/29/24 Loc: HO.MAMMO Attending Dr: Lasha Castillo MD Ordering Physician: Lasha Castilloesu lts: 2Benign Findings Date of Service: 08/29/24Follow Up: 1 Year From Orig inal Mammogram Procedure(s): MM tomosynthesis screening BI Accession Number(s): [id number] cc: Lasha Castillo MD EXAMINATION: MM SCREENING [...] 09/06/24 1625 DD/ 1050 TD/TT: 08/29/24 1120 Teletray Operator: Lasha Jara MD IMG BI PROCEDURES Fin al Result * Albumin, Random Urine W/Creatinine (06/29/2022 12:01 PM EDT) Creatinine, Random Urine 112 20 - 275 mg/dL [facility] [place] [facility] Albumin, Urine 2.0 See Note: mg/dL [facility] [place] [facility] Comment: Reference Range: Reference Range Not established Albumin/Creatinin e Ratio, Random Urine 18 <30 mcg/mg creat [facility] [place] [facility] Comment: The ADA defines abnormalities in albumin [...] 06/30/2022 5:17 PM EDT SPLIT 06/29/2022 FROM [id number] Lasha Jara MD LAB URINE ORDERABLES Final Result [facility] [address] [place] [address] [facility] [place] [facility] [address] [place] [address] * Hepatitis C Antibody with Reflex to HCV, RNA, Quantitative, Real-Time PCR (06/29/2022 9:03 AM EDT) Hepatitis C Antibody NON-REACT BROCK NON-REACT BROCK [facility] [place] [employer] Index 0.07 <1.00 [facility] [place] [facility] Comment: HCV antibody was non-reactive. There is no laboratory evidence of HCV infection. In most cases, no further action is required. However, if recent HCV exposure is suspected, a test for HCV RNA (test code 85391) is suggested. For additional information please refer to http://education.[employer].The Society/faq/CTW54u2 (This link is being provided for informational/ educational purposes only.) 06/29/2022 9:03 AM EDT 06/29/2022 9:04 AM EDT Narrative [facility] - 06/29/2022 10:21 PM EDT FASTING:NO PATIENT UNABLE TO VOID; ADVISED TO RETURN FOR COLLECTION. FASTING: NO Lasha Jara MD LAB BLOOD ORDERABLES Final Result [facility] [address], [place] [address] [facility] [address] [place] [address] * Colonoscopy (06/26/2019) Colonoscopy Normal Normal 06/26/2019 Irene Zavala - 06/26/2019 2:53 PM EDT Recommended 5 year follow up ( see scanned notes) Historical Provider HEALTH MAINTENANCE Edited Result - Final from Last 3 Months or Most Recently Relevant to Health Maintenance [place] [address] [employer] [employer] AD[place] Care Teams Crown Presser Relationship Specialty Start Date End Date Lasha Marrufo MD [address] [place] [address] PCP - General Internal Medicine 12/25/13 Farzad Sandhu MD [address] [place] [phone] Cardiology 11/08/24
--- OUTSIDE RECORDS SUMMARY | 2024-12-30 18:13 | XMS_ITS | Encounter Summary ---
Author Organization [employer] Address [address] [place] [address] [address] [place] [address] Care Team Providers Care Screen Printing Press Operator Name Role Phone Lasha Marrufo MD Primary Care Provide r Farzad Sandhu MD Unavailable [phone] Encounter Details Date Type Department Care Team (Late st Contact Info) Description 06/30/2022 Orders Only [facility] [address] [place] [address] [phone] Elsa Julien LPN Social History Tobacco Use [...] EST Office Visit [facility] [address] [place], [place] [phone] Lasha Marrufo MD [address] [place] [address] documented as of this encounter Visit Diagnoses Not on filedocumented in this encounter Care Teams Screen Printing Press Operator Relationship Specialty Start Date End Date Lasha Marrufo MD [address] [place] [address] PCP - General Internal Medicine 12/25/13 Farzad Sandhu MD [address] [place] [address] Cardiology 11/08/24 documented as of this encounter
--- OUTSIDE RECORDS SUMMARY | 2024-12-30 18:13 | XMS_ITS | Encounter Summary ---
Author Organization [employer] Address [address] [facility] [address] [place] [address] Care Team Providers Care It Project Lead Name Role Phone Lasha Marrufo MD Primary Care Provide r Farzad Sandhu MD Unavailable [phone] Encounter Details Date Type Department Care Team (Late st Contact Info) Description 04/06/2022 Orders Only [facility] [address] [place] [address] Eliz Adorno LPN Social History Tobacco Use [...] Visit [facility] [address] [place] [address] Lasha Marrufo MD [address] [place] [address] documented as of this encounter Visit Diagnoses Not on filedocumented in this encounter Care Teams It Project Lead Relationship Specialty Start Date End Date Lasha Marrufo MD [address] [place], [place] [phone] PCP - General Internal Medicine 12/25/13 Farzad Sandhu MD [address] [place] [address] Cardiology 11/08/24 documented as of this encounter
--- OUTSIDE RECORDS SUMMARY | 2024-12-30 18:13 | XMS_ITS | Encounter Summary ---
Author Organization [employer] Address [address] [facility] [address] [place] [address] Care Team Providers Care Absorption Plant Operator Helper Name Role Phone Lasha Marrufo MD Primary Care Provide r Farzad Sandhu MD Unavailable [phone] Encounter Details Date Type Department Care Team ([facility] st Contact Info) Description 02/19/2024 Telephone [facility] [address] [place], [place] [phone] Lasha Marrufo MD [address] [place] [address] Social History Tobacco Use Types Packs/Day Years [...] Description 02/18/2025 1:15 PM EST Office Visit [facility] [address] [place] [address] Lasha Marrufo MD [address] [place] [address] documented as of this encounter Goals Goal [...] documented as of this encounter Care Teams Absorption Plant Operator Helper Relationship Specialty Start Date End Date Lasha Marrufo MD [address] [place] [address] PCP - General Internal Medicine 12/25/13 Farzad Sandhu MD [address] [place] [address] Cardiology 11/08/24 documented as of this encounter
--- OUTSIDE RECORDS SUMMARY | 2024-12-30 18:13 | XMS_ITS | Encounter Summary ---
Author Organization [email or web address] Address [address] [place] [address] [address] [place] [address] Care Team Providers Care Japanese Interpreter Name Role Phone Lasha Marrufo MD Primary Care Provide r Farzad Sandhu MD Unavailable [phone] Encounter Details Date Type Department Care Team (Late st Contact Info) Description 08/04/2022 Abstract [facility] [address] [place] [address] [phone] Lasha Marrufo MD [address] [place] [address] [phone] Social History Tobacco Use Types Packs/Day Years [...] Description 02/18/2025 1:15 PM EST Office Visit [facility] [address] [place], [place] [phone] Lasha Marrufo MD [address] [place], [place] [phone] documented as of this encounter Procedures Procedure [...] on filedocumented in this encounter Care Teams Japanese Interpreter Relationship Specialty Start Date End Date Lasha Marrufo MD [address] [place] [address] PCP - General Internal Medicine 12/25/13 Farzad Sandhu MD [address] [place] [address] Cardiology 11/08/24 documented as of this encounter
== END 2024-12-30 16:09 | disposition home or self-care (01) ==
LOC: HO.CT 16:08
PROVIDERS: PCP Internal Medicine; Visit Provider Physician Assistant Medical
DX: Z12.2 Encounter for screening for malignant neoplasm of respiratory organs (principal); F17.210 Nicotine dependence, cigarettes, uncomplicated
CPT/HCPCS: 71271

== ENCOUNTER → 2024-12-30 16:10 | Outpatient (BNV) | payer MEDICAID, SELFPAY | PROVIDERS: PCP Internal Medicine; Visit Provider Radiology Diagnostic Radiology | DX: F17.210 Nicotine dependence, cigarettes, uncomplicated (principal) | CPT/HCPCS: 71271 ==

== ENCOUNTER 2025-02-01 20:08 | Emergency (ER) | payer MEDICAID, SELFPAY ==
--- OUTSIDE RECORDS SUMMARY | 2023-10-19 10:55 | XMS_ITS ---
Author Organization [facility] Address [address] [place] [phone] Care Team Providers Care Environmental Protection Economist Name Role Phone Mirella Jara MD, Lasha Primary Care Provide r Medardo Ortega Jr [phone] Encounters Encounter Location Date Provider Diagnosis [facility] [address] [facility] [address] [place] [phone] 10/19/2023 Medardo Delgado Jr Plan Of Treatment Next Appt Details Provider Name:Medardo vallecillo Jr, 08/14/2025 03:35:00 PM, [address] [facility], [address], [place], [address], Progress Notes * WATERSBRAINSETHOB:03/23/19 62 (64 yo F)Acc No.[id number]:10/19/2023 Progress Notes Patient: YUAN TORRES Provider: Josh Delgado MD :1960 A ge:63 Y S ex:Female Date:10/19/2023 Address:[address] [place] [address] [place] Pcp:Lasha holcomb MD Subjective: * Chief Complaints: [...] 10/19/2023 Generated for Deb kay/Hunter/Rama on: 1 04/03/2024 08:48 PM EDT
--- OUTSIDE RECORDS SUMMARY | 2024-04-02 06:20 | XMS_ITS ---
Author Organization [facility] Address [address] [place] [address] [place] [phone] Care Team Providers Care Rotary Rock Drilling Machine Operator Name Role Phone Mirella Jara MD, Lasha Primary Care Provide r Medardo Ortega Jr REASON FOR VISIT abn ugi series Encounters Encounter Location Date Provider Diagnosis [facility] [place] [address] [place] [id number] 04/02/2024 Medardo Delgado Jr Abnormal UGI series R93.3 Assessments Encounter Date Diagnosis (ICD Code) Assessment Notes Treatment Notes Treatment Clinical Notes Section Notes 04/02/2024 Abnormal UGI series (ICD-10 - R93.3) Plan Of Treatment Next Appt Details Provider Name:Medardo vallecillo Jr, 08/14/2025 03:35:00 PM, [address] [place] [address], Suite [facility], [place], [address], Progress Notes * FRANTZ WATERSOB:[birth year] (64 yo F)Acc No.[id number]:04/02/2024 EGD/MAC Patient: Ajit QUINONESMARIFER YUAN Provider: Josh Delgado MD :1960 A ge:64 Y S ex:Female Date:04/02/2024 Address:[address] [place], [place] [phone] Pcp:Lasha holcomb MD Subjective: * Chief Complaints: [...] Josh Delgado MD Date: Generated for Deb kay/Hunter/eTransmitting on: 04/03/2024 08:50 PM EDT
--- OUTSIDE RECORDS SUMMARY | 2025-01-29 10:45 | XMS_ITS | Encounter Summary ---
Author Organization [employer] Address [address] [place] [address] Care Team Providers Care Cable Strander Name Role Phone Lasha Castillo MD Primary Care Provi av Reason for Visit * Reason Comments DM Foot Care Controlled type 2 di abetes with neuropathy (CMS/HCC V24, CMS/HCC V28)Arthritis of both feetHammertoes of both feetDermatophytosis, nail Encounter Details Date Type Department Care Team (Late st Contact Info) Description 01/29/2025 10:45 AM EDT Office Visit Orthopedic Surgery [address] [address] Estevan Viramontes DPM [address] [place] [phone] Controlled type 2 diabetes with neuropathy (CMS/HCC V24, CMS/HCC V28) (Primary Dx); Arthritis of both feet; Hammertoes of both feet; Dermatophytosis, nail; Ingrown left big toenail Social History Tobacco Use Types Packs/Day Years Used Date Smoking Tobacco: Never Assessed Comments Unknown Sex and Gender Information Value Date Recorded Sex Assigned at Female 04/18/2024 1:44 PM EST Legal Sex Female 9:10 PM EST Gender Identity Female 04/18/2024 1:44 PM EST Sexual Orientation Straight 04/18/2024 1: 44 PM EST documented as of this encounter Progress Notes * Estevan Viramontes DPM - 01/29/2025 10:45 AM EDT Referring MD: Marek Last PCP visit: 11/06/2024 IDENTIFIER: Edwin is a 64 y.o. year old female who presents for consultation. CC: Pain in feet HPI: Patient returns office for multiple forefoot deformities Patient states that they have been diabetic for the past few years and has continued tingling of his feet bilaterally Denies any history of ulceration, or infection. Patient relates her nails continue be thickened and painful Patient is concerned with the left thickening of the nail plate causing pain in close toed shoes and recently redness and swelling Patient is wearing good supportive shoes at this time. Patient reports mild calluses that are becoming bothersome. Patient with minimal other pedal complaints at this time. Patient's FBS this AM was 136 Recent A1C is %. 9.5 ROS: GENERAL: Pt denies nausea, fever, vomiting, chills, or shortness of breath. Pt in NAD. CARDIOLOGY: pt denies chest pain, palpitations LUNGS: pt denies shortness of breath MUSCULOSKELETAL: See HPI, otherwise no joint pain or swelling, back pain, or muscle pain. SKIN: see HPI, otherwise no lesions, rash or itching NEURO: No persistent headache, weakness or numbness The remainder of the review of systems is noncontributory PAST MEDICAL HISTORY: There is no problem list on file for this patient. SOCIAL HISTORY: Social History Tobacco Use Smoking status: Not on file Smokeless tobacco: Not on file Substance Use Topics Alcohol use: Not on file ACTIVE MEDICATIONS: No outpatient medications have been marked as taking for the 01/29/25 encounter (Office Visit) Sho Viramontes DPM. ALLERGIES: Acetaminophen, Codeine, Pseudoephedrine, and Shellfish derived PHYSICAL EXAM: There were no vitals taken for this visit. PODIATRIC EXAMINATION: GENERAL: Patient appears well nourished, with NAD. VASCULAR: Dorsalis pedis pulses are 1/4 bilaterally and Posterior tibial pulses are 0/4 bilaterally. Capillary filling time within normal limits the digits. No pallor on elevation or rubor on dependency. Positive hair growth. Severe varicosities. +1 pitting edema bilaterally. Denies rest pain or claudication pain. NEUROLOGICAL: Sharp/dull sensation intact, protective sensation diminished on [place]. Peripheral neuropathy feet bilaterally ORTHOPEDIC: Good muscle strength 5/5 of all flexors and extensors. Dorsi flexion of ankle ,10 degrees, plantar flexion WNL. No muscle atrophy. Arthritic changes of midfoot bilaterally. Contracture ofdigits 2 through 5 DERMATOLOGICAL:.No masses or skin lesions noted. Normal skin temperature, normal skin turgor. Nailsare elongated dystrophic discolored x 10 with subungual debris. Notable ingrowth to the left hallux BIOMECHANICS: STJ ROM wnl, MTJ ROM wnl, 1st MPJ ROM wnl. IMPRESSION: 1. Controlled type 2 diabetes with neuropathy (CMS/HCC V24, CMS/HCC V28) 2. Arthritis of both feet 3. Hammertoes of both feet 4. Dermatophytosis, nail 5. Ingrown left big toenail PLAN: Pt was seen and examined, history reviewed. Patient was educated on the importance of keeping tight glucose control in order to limit chance for ulceration infection in the future patient continues to suffer with arthritic changes bilateral feet. Patient instructed to be more consistent with using of supportive insole in order to limit breakdown midtarsal joint Patient is not being consistent with using the topical antifungal medication. Patient was instructed to be more consistent with doing so in order to allow for to work properly Patient continues to suffer with infection to the feet patient has increased infection to the left great toe due to the redness and swelling on the distal tuft. Patient was offered matrixectomy wouldlike to plan eval. Patient will return in 3 weeks for matrixectomy at that time Nail debridement performed to nails 1-5 bilateral as nails were described to be causing pain and difficulty for walking while in shoegear at their previous length. They were debrided in thickness andlength, with no incident. Clinical evidence of mycosis is documented which required active treatment. Patient expressed immediate relief. Patient is to RTC in 9 weeks Estevan Viramontes DPM documented in this encounter Plan of Treatment Upcoming Encounters Date Type Department Care Team (Late st Contact Info) Description 02/19/2025 10:45 AM EST Office Visit Orthopedic Surgery - [address] [phone] Estevan Viramontes DPM [address] [place] [phone] documented as of this encounter Visit Diagnoses Diagnosis Controlled type 2 diabetes with neuropathy ([facility] V24, [facility] V28)- Primary Type II or unspecified type diabetes mellitus with neurological manifestations, not stated as uncontrolled Arthritis of both feet Hammertoes of both feet Dermatophytosis, nail Dermatophytosis of nail Ingrown left big toenail Ingrowing nail documented in this encounter Care Teams Cable Strander Relationship Specialty Start Date End Date Lasha Castillo MD [address] [place] [phone] PCP - General Internal Medicine 09/09/24 documented as of this encounter
--- NOTE | ~2025-02-01 | XR_ITS ---
CLINICAL HISTORY: pain, compression fx? 3 views lumbar spine Comparison: None provided Findings: Five hlk-wfw-yagziuu lumbar-type vertebral bodies are present. Vertebral body heights are maintained. Mild retrolisthesis of L3 on L4 is present. No pars defect. Patient is osteopenic. There is mild disc space narrowing at L3/L4, L4/L5 and L5/S1. Multilevel facet arthropathy greatest at L3/L4, L4/L5, L5/S1. Spinous processes are normally aligned. Surgical clips in the right upper quadrant. Moderate degenerative changes at the sacroiliac articulations. Vfck-stazezh-nlcx-right femoroacetabular joint space narrowing. Vascular calcifications are noted in the abdominal aorta and iliac arteries. IMPRESSION: No acute fracture. Multilevel degenerative disc disease greatest in the lower lumbar spine with associated facet arthropathy. Diffuse osteopenia This document has been electronically signed by: Judson Garcia III, MD PHD on 02/02/2025 00:23:12
--- NOTE | 2025-02-01 20:19 | ED.BACK ---
HPI - Back Pain/Injury General Chief Complaint: Back Pain/Injury Stated Complaint: back and pelvic pain started yesterday Time Seen by Provider: 02/01/25 20:56 Source: patient Limitations: language barrier History of Present Illness ED Provider: Kaylee Worthington PA-C HPI Narrative: 64-year-old female with a history of morbid obesity, hypertension, hyperlipidemia, diabetes, known coronary artery disease, COPD/asthma overlap, tobacco abuse, JORGE on CPAP, osteoarthritis, who presents with right-sided low back pain. Patient developed discomfort in the low back yesterday, it is now radiating down the right lower extremity. Patient denies new activity, heavy lifting or trauma that could have precipitated her symptoms. Patient ambulates with a cane at baseline. Denies urinary retention, bowel incontinence, weakness of lower extremity or paresthesia. Related Data Home Medications ?Medication ?Instructions ?Recorded ?Confirmed aspirin 81 mg tablet,delayed 81 mg PO DAILY 04/08/20 03/29/24 release lhahrxvetm-gjrwodhwklbjq-fvhxqxfi 1 cap PO Q4-6H PRN Migraine 04/08/20 03/29/24 50 mg-325 mg-40 mg capsule Headache cyclobenzaprine 10 mg tablet 10 mg PO TID 04/08/20 03/29/24 docusate sodium 100 mg capsule 100 mg PO BID 04/08/20 03/29/24 fluticasone propionate 50 1 spray intranasal DAILY 04/08/20 03/29/24 mcg/actuation nasal spray,suspension (Flonase Allergy Relief) hydralazine 50 mg tablet 50 mg PO TID 04/08/20 03/29/24 levothyroxine 75 mcg tablet 75 mcg PO DAILY 04/08/20 03/29/24 (Synthroid) losartan 100 mg tablet 100 mg PO DAILY 04/08/20 03/29/24 metoprolol succinate 100 mg 100 mg PO DAILY 04/08/20 03/29/24 tablet,extended release 24 hr montelukast 10 mg tablet 10 mg PO BEDTIME 04/08/20 03/29/24 (Singulair) nitroglycerin 0.4 mg sublingual 0.4 mg sublingual Q5M PRN Chest 04/08/20 03/29/24 tablet (Nitrostat) Pain polyethylene glycol 3350 17 gram 17 g PO DAILY 01/06/21 12/27/24 oral powder packet (Miralax) rosuvastatin 40 mg tablet (Crestor) 40 mg PO DAILY 04/08/20 03/29/24 topiramate 50 mg tablet 50 mg PO BID 04/08/20 03/29/24 verapamil 300 mg capsule 24hr 300 mg PO BEDTIME 04/08/20 03/29/[address],ext[address]release furosemide 20 mg tablet 20 mg PO BID 02/09/21 03/29/24 dicyclomine 20 mg tablet 20 mg PO BID 08/27/21 03/29/24 famotidine 40 mg tablet 40 mg PO DAILY 08/27/21 03/29/24 metformin 500 mg tablet,extended 1,000 mg PO BID 08/27/21 03/29/24 release 24 hr dulaglutide 0.75 mg/0.5 mL 0.75 mg subcut QWEEK 09/22/21 03/29/24 subcutaneous pen injector (SpiderOak) hydrocortisone 2.5 % topical cream 1 appl topical BID 03/11/22 03/29/24 with perineal applicator (Tabber ) Previous Rx's ?Medication ?Instructions ?Recorded acetaminophen 650 mg 650 mg PO Q8H PRN pain #90 tabs 07/14/20 tablet,extended release (Mapap Arthritis Pain) duloxetine 60 mg capsule,delayed 60 mg PO QAM #30 caps 06/02/21 release Walker with seat #1 ea 01/04/24 celecoxib 200 mg capsule 200 mg PO BID #60 caps 05/29/24 albuterol sulfate 90 mcg/actuation 1 puff inhalation QID for asthma 09/02/24 aerosol inhaler (Ventolin HFA) #18 grams albuterol sulfate 90 mcg/actuation 2 puff inhalation Q4-6H PRN 11/20/24 aerosol inhaler (Ventolin HFA) shortness of breath or wheezing #6.7 grams amoxicillin 875 mg-potassium 1 tab PO BID #14 tabs 11/20/24 clavulanate 125 mg tablet azithromycin 250 mg tablet See Rx Instructions PO .COMPLEX #6 11/20/24 tabs benzonatate 100 mg capsule 100 mg PO TID PRN cough #20 caps 11/20/24 fluticasone propionate 115 2 puff PO BID #12 grams 12/23/24 mcg-salmeterol 21 mcg/actuation HFA inhaler (Advair HFA) ketorolac 10 mg tablet 10 mg PO Q6H PRN pain #20 tabs 02/02/25 methocarbamol 750 mg tablet 750 mg PO Q8H PRN pain, moderate 02/02/25 #15 tabs Allergies Allergy/AdvReac Type Severity Reaction Status Date / Time codeine (CODEINE) Allergy Intermediate LOWERED Verified 02/01/25 20:23 PLATELETS atorvastatin Allergy Mild Headache Verified 02/01/25 20:23 amlodipine Allergy Unknown Unknown Verified 02/01/25 20:23 clonidine Allergy Unknown Unknown Verified 02/01/25 20:23 shellfish derived (shellfish) Allergy Unknown Unknown Verified 02/01/25 20:23 pseudoephedrine (From Allergy Unknown Verified 02/01/25 20:23 Sudafed) Review of Systems Review of Systems: Yes all other systems are reviewed and are negative Constitutional: Constitutional: Denies fatigue and Denies fever(s) Gastrointestinal: Gastrointestinal: Denies abdominal pain, Denies nausea and Denies vomiting Genitourinary: Genitourinary: Denies dysuria, Denies pelvic pain and Denies flank pain Musculoskeletal: Musculoskeletal: Reports back pain, Denies muscle weakness, Denies numbness, Reports radiating pain into limb and Denies tingling Neurologic: Denies numbness and Denies tingling Endocrine: Endocrine: Denies fatigue PMFSH Past Medical History Attestation statement: The following information was validated with the patient. Medical History History of myocardial infarction Nicotine dependence, cigarettes, uncomplicated Asthma with COPD Cough Breast calcification, left Obesity (BMI 30-39.9) Breast mass, right Venous insufficiency Elevated cholesterol CAD (coronary artery disease) GERD (gastroesophageal reflux disease) Arthritis Hypothyroid HTN (hypertension) Asthma Allergic rhinitis JORGE on CPAP Surgical History History of esophagogastroduodenoscopy (EGD) Hx of arthroscopic knee surgery History of total right knee replacement (10/19/17) H/O colonoscopy Family History Family History Father Prostate cancer Diabetes Alzheimer dementia HTN (hypertension) Mother Aneurysm Daughter Diabetes Social History Social History Household Members: None Housing: House Alcohol intake: former Patient Tobacco Use Status: Current everyday Tobacco user Tobacco use type: Cigarette Cigarette Packs Per Day: 0.5 Cigarettes Per Day: 10 Years Smoked: (onset 15yo, x 48yrs, max 2ppd - now 1/2-3/4ppd - 50pyh) Advance Directives: No Advance Directives Information Provided: No Do you have a plan to hurt others: No Plan Current occupational status: disabled 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 Sexual orientation: Straight/Heterosexual Gender identity: Female Physical Exam Vital Signs: Vital Signs: Last Vital Signs Temp 98.3 F 02/01/25 20:20 Pulse 83 02/01/25 20:20 Resp 18 02/01/25 20:20 BP 127/67 02/01/25 20:20 Pulse Ox 97 02/01/25 20:20 O2 Del Method Room Air 02/01/25 20:20 BMI result Body Mass Index 40.3 Const: Other: Alert Orientation/consciousness: patient oriented x3 Resp: Effort & Inspection: normal respiratory effort Cardio: Other: Normal peripheral perfusion : General: Yes no CVA tenderness Back/Spine/Pelvis: Other: Tenderness over paraspinous distribution but also midline low lumbar region, no obvious step-offs Back: no CVA tenderness Skin: Other: Warm dry no rash Neuro: Other: Antalgic gait, ambulates with a cane General: patient oriented x3, no focal motor deficits and CN's II-XI intact bilaterally Extrem: Other: Strength is 5/5 bilateral lower extremities Psych: Other: Cooperative Course Course Course Narrative: This is a Rapid Medical Exam performed in triage by Eliza Woo PA-C. Full HPI, ROS and PE to be performed by primary ED provider. 64 yo Occitan speaking female w/PMHx HTN, asthma, JORGE on CPAP, GERD, CAD, HLD, presenting to the ED c/o right sided low back pain radiating to pelvic region x yesterday. PE: in wheelchair, uncomfortable, abdomen soft & nontender Plan: labs, UA Medications Administered Discontinued Medications Generic Name Dose Route Start Last Admin Trade Name Freq PRN Reason Stop Dose Admin Acetaminophen 975 mg 02/01/25 21:43 02/01/25 22:00 Acetaminophen 325 Mg Tablet PO 02/01/25 21:44 975 mg ONCE ONE Administration Ketorolac Tromethamine 15 mg 02/01/25 21:43 02/01/25 22:00 Ketorolac Tromethamine 15 Mg/Ml Vial IM 02/01/25 21:44 15 mg ONCE ONE Administration Methocarbamol 750 mg 02/01/25 21:43 02/01/25 22:00 Methocarbamol 750 Mg Tablet PO 02/01/25 21:44 750 mg ONCE ONE Administration Medical Decision Making Medical Decision Making [facility] Narrative: 64-year-old female with a history of morbid obesity, hypertension, hyperlipidemia, diabetes, known coronary artery disease, COPD/asthma overlap, tobacco abuse, JORGE on CPAP, osteoarthritis, who presents with right-sided low back pain. Patient developed discomfort in the low back yesterday, it is now radiating down the right lower extremity. Patient denies new activity, heavy lifting or trauma that could have precipitated her symptoms. Patient ambulates with a cane at baseline. Denies urinary retention, bowel incontinence, weakness of lower extremity or paresthesia. Problem: Age, morbid obesity, diabetes, known arthritis History: Per patient I have considered the following differential diagnoses: Arthritis, compression fracture, lumbar strain, lumbar radiculopathy, cauda equina, UTI, renal colic Plan: Patient is here with radicular symptoms, without red flag signs symptoms concerning for cord compression. Given palpable midline tenderness, I am ordering an x-ray to rule out compression fracture, less likely given no trauma. We will be starting on anti-inflammatory and muscle relaxant. The patient is not having any urinary symptoms she has no CVA tenderness, she has no abdominal pain no nausea vomiting or dysuria, we do not need a urine sample, other screening labs were obtained. I have independently reviewed the following tests: X-ray lumbar spine:IMPRESSION: No acute fracture. Multilevel degenerative disc disease greatest in the lower lumbar spine with associated facet arthropathy. Diffuse osteopenia Differential Diagnosis Differential Diagnoses: The differential diagnosis associated with the presentation includes See medical decision-making Admission/Observation Consideration of admission/observation: Escalation of care including admission/observation considered Not applicable Lab Data [facility] Lab Attestation statement: I reviewed the patient's lab results. 02/01/25 20:36 02/01/25 20:36 Labs: Lab Results 02/01/25 Range/Units 20:36 WBC 9.3 (4.8-10.8) X10*3/uL RBC 4.61 (4.20-5.50) X10*6/uL Hgb 12.0 (12.0-16.0) g/dl Hct 38.8 (37.0-47.0) % MCV 84.2 (80.0-98.0) fL MCH 26.0 L (27.0-33.0) pg MCHC 30.9 L (31.0-35.0) g/dl RDW 15.8 (11.0-16.0) % Plt Count 190 (160-400) X10*3/uL MPV 9.0 L (9.4-12.3) fL Immature Gran % (Auto) 0.3 (0.0-0.4) % Neut % (Auto) 55.1 (45-73) % Lymph % (Auto) 37.5 (20-40) % Prentiss % (Auto) 5.4 (2-11) % Eos % (Auto) 1.3 (0-4) % Baso % (Auto) 0.4 (0-2) % Lymph # (Auto) 3.5 (1.2-4.9) X10*3/uL Prentiss # (Auto) 0.5 (0.1-1.2) X10*3/uL Eos # (Auto) 0.1 (0.0-0.4) X10*3/uL Baso # (Auto) 0.0 (0.0-0.2) X10*3/uL Abs Immat Gran (auto) 0.03 (0.00-0.03) X10*3/uL Absolute Neuts (auto) 5.1 (2.0-8.3) x10*3/uL Absolute Nucleated RBC 0.000 (0.0-0.012) X10*3/uL Nucleated RBC % (auto) 0.0 (0.0-0.2) /100WBC Sodium 141 (135-145) mmol/L Potassium 3.5 (3.3-5.1) mmol/L Chloride 106 (96-108) mmol/L Carbon Dioxide 29 (22-29) mmol/L Anion Gap 10 L (12-20) BUN 11 (9-16) mg/dL Creatinine 0.66 (0.5-1.4) mg/dL Estim Creat Clear Calc 111.4 Estimated GFR > 60 Random Glucose 81 (60-115) mg/dL Calcium 9.2 (8.4-10.2) mg/dL Magnesium 2.0 (1.6-2.6) mg/dL Total Bilirubin 0.1 (0.0-1.0) mg/dL Direct Bilirubin < 0.2 (0.0-0.5) mg/dL AST 21 (5-31) U/L ALT 20 (0-31) U/L Alkaline Phosphatase 126 H (39-117) U/L Total Protein 7.6 (6.5-8.0) g/dL Albumin 4.2 (3.5-5.0) g/dL Lipase 28 (8-78) U/L Radiology Impression Discussion of test interpretation with radiology: I have reviewed the radiologist's reading. Discharge Plan Discharge Clinical Impression: Degenerative disc disease, lumbar, Acute right-sided back pain with sciatica Patient Disposition: Home, Self-Care Instructions: Sciatica (ED), Degenerative Disc Disease (ED) Additional Instructions: All of your screening labs were normal, you were found to have degenerative changes of the lumbar spine. You are being treated for suspect sciatica, secondary to the arthritis/inflammation in your lumbar spine. See home care instructions. Use the ketorolac as directed this is an anti-inflammatory take it with food. Use the methocarbamol as needed for further pain, this is a muscle relaxant, it will cause drowsiness, do not drive or operate machinery while taking this medication. You need to follow up with your primary care provider, you will benefit from physical therapy, your primary care provider can expedite this process for you. Prescriptions: New methocarbamol 750 mg tablet 750 mg PO Q8H PRN (Reason: pain, moderate) Qty: 15 0RF ketorolac 10 mg tablet 10 mg PO Q6H PRN (Reason: pain) Qty: 20 0RF Rx Instructions: maximum total duration of 5 days from all oral, intranasal, or parenteral formulations. The patient received an intramuscular dose of Toradol here in the emergency room No Action acetaminophen [Mapap Arthritis Pain] 650 mg tablet extended release 650 mg PO Q8H PRN (Reason: pain) Qty: 90 3RF duloxetine 60 mg capsule,delayed release(DR/EC) 60 mg PO QAM Qty: 30 0RF (DME) Walker with seat See Rx Instructions .Route .MEDSUPPLY Qty: 1 0RF Rx Instructions: As directed albuterol sulfate [Ventolin HFA] 90 mcg/actuation HFA aerosol inhaler 1 puff inhalation QID Qty: 18 3RF fluticasone propion-salmeterol [Advair HFA] 115-21 mcg/actuation HFA aerosol inhaler 2 puff PO BID Qty: 12 0RF amoxicillin-pot clavulanate 875-125 mg tablet 1 tab PO BID Qty: 14 0RF azithromycin 250 mg tablet See Rx Instructions .ROUTE .COMPLEX Qty: 6 0RF Rx Instructions: For 250 mg dose pack: take 500 mg today (day 1), then 250 mg for 4 days (days 2-5) benzonatate 100 mg capsule 100 mg PO TID PRN (Reason: cough) Qty: 20 0RF albuterol sulfate [Ventolin HFA] 90 mcg/actuation HFA aerosol inhaler 2 puff inhalation Q4-6H PRN (Reason: shortness of breath or wheezing) Qty: 6.7 0RF aspirin 81 mg tablet,delayed release (DR/EC) 81 mg PO DAILY hydralazine 50 mg tablet 50 mg PO TID losartan 100 mg tablet 100 mg PO DAILY verapamil 300 mg capsule, [address] 300 mg PO BEDTIME hfykaxtgsb-zphlgqdwglsnq-obky 50-325-40 mg capsule 1 cap PO Q4-6H PRN (Reason: Migraine Headache) rosuvastatin [Crestor] 40 mg tablet 40 mg PO DAILY fluticasone propionate [Flonase Allergy Relief] 50 mcg/actuation spray,suspension 1 spray intranasal DAILY Rx Instructions: administer into each nostril polyethylene glycol 3350 [Miralax] 17 gram powder in packet 17 g PO DAILY nitroglycerin [Nitrostat] 0.4 mg tablet, sublingual 0.4 mg sublingual Q5M PRN (Reason: Chest Pain) Rx Instructions: do not exceed 3 doses per episode levothyroxine [Synthroid] 75 mcg tablet 75 mcg PO DAILY docusate sodium 100 mg capsule 100 mg PO BID topiramate 50 mg tablet 50 mg PO BID metoprolol succinate 100 mg tablet extended release 24 hr 100 mg PO DAILY montelukast [Singulair] 10 mg tablet 10 mg PO BEDTIME cyclobenzaprine 10 mg tablet 10 mg PO TID furosemide 20 mg tablet 20 mg PO BID dicyclomine 20 mg tablet 20 mg PO BID famotidine 40 mg tablet 40 mg PO DAILY metformin 500 mg tablet extended release 24 hr 1,000 mg PO BID hydrocortisone [Procto-Med HC] 2.5 % cream with perineal applicator 1 appl topical BID Trulicity 0.75 mg/0.5 mL pen injector 0.75 mg subcut QWEEK Rx Instructions: takes on celecoxib 200 mg capsule 200 mg PO BID Qty: 60 3RF Print Language: Occitan
[2025-02-01 20:20] VITALS: BP 127/67; PULSE 83; RESP 18; TEMP 36.8; O2SAT 97; BMI 40.3
[2025-02-01 20:41] LABS: MANUAL DIFF FLAG NO
[2025-02-01 20:42] LABS: Hematocrit 38.8 % (37.0-47.0); Hemoglobin 12.0 g/dl (12.0-16.0); Imm Gran Abs Auto 0.03 X10*3/uL (0.00-0.03); Imm Gran Pct Auto 0.3 % (0.0-0.4); Lymphocytes Absolute Auto 3.5 X10*3/uL (1.2-4.9); Mean Corpuscular HGB Conc 30.9 g/dl (31.0-35.0); Mean Corpuscular Hemoglobin 26.0 pg (27.0-33.0); Mean Corpuscular Volume 84.2 fL (80.0-98.0); NRBC Abs Auto 0.000 X10*3/uL (0.0-0.012); NRBC Pct Auto 0.0 /100WBC (0.0-0.2); Platelet Count 190 X10*3/uL (160-400); Red Blood Count 4.61 X10*6/uL (4.20-5.50); White Blood Count 9.3 X10*3/uL (4.8-10.8)
--- OUTSIDE RECORDS SUMMARY | 2025-02-01 20:48 | XMS_ITS | Encounter Summary ---
Author Organization [employer] Address [address] [place] [address] [address] [place] [address] Care Team Providers Care Engineering Technician Parking Name Role Phone Lasha Marrufo MD Primary Care Provide r Farzad Sandhu MD Unavailable [phone] Encounter Details Date Type Department Care Team (Late st Contact Info) Description 08/22/2022 Abstract [facility] MED[facility]INE [address] [place] [address] [phone] Lasha Marrufo MD [address] [place] [address] [phone] Social History Tobacco Use Types Packs/Day Years [...] 1:15 PM EST Office Visit [facility] [address] [place], [place] [phone] Lasha Marrufo MD [address] [place], [place] [phone] documented as of this encounter Procedures Procedure [...] on filedocumented in this encounter Care Teams Engineering Technician Parking Relationship Specialty Start Date End Date Lasha Marrufo MD [address] [place] [phone] PCP - General Internal Medicine 12/25/13 Farzad Sandhu MD [address] [place] [phone] Cardiology 11/08/24 documented as of this encounter
--- OUTSIDE RECORDS SUMMARY | 2025-02-01 20:48 | XMS_ITS | Encounter Summary ---
Author Organization [employer] Address [address] [place] [address] [address] [place] [address] Care Team Providers Care Logistics Planner Name Role Phone Lasha Marrufo MD Primary Care Provide r Farzad Sandhu MD Unavailable [phone] Encounter Details Date Type Department Care Team (Late st Contact Info) Description 09/05/2022 Orders Only [facility] MED[facility]INE [address] [place] [phone] Elsa Julien LPN Social History Tobacco Use [...] 1:15 PM EST Office Visit [facility] [address] [place] [phone] Lasha Marrufo MD [address] [place] [phone] documented as of this encounter Visit Diagnoses Not on filedocumented in this encounter Care Teams Logistics Planner Relationship Specialty Start Date End Date Lasha Marrufo MD [address] [place] [phone] PCP - General Internal Medicine 12/25/13 Farzad Sandhu MD [address] [place] [address] Cardiology 11/08/24 documented as of this encounter
--- OUTSIDE RECORDS SUMMARY | 2025-02-01 20:48 | XMS_ITS | Encounter Summary ---
Author Organization [employer] Address [address] [place] [address] [address] [address] Care Team Providers Care Repossessor Name Role Phone Lasha Marrufo MD Primary Care Provide r Farzad Sandhu MD Unavailable [phone] Reason for Visit * Reason Comments Med Refill Encounter Details Date Type Department Care Team (Late Contact Info) Description 09/08/2022 Refill [facility] [address] [place], [place] [phone] Lasha Marrufo MD [address] [place] [address] Acute non intractable tension-type headache; Anxiety Social [...] Description 02/18/2025 1:15 PM EST Office Visit [facility] [address] [place], [place] [phone] Lasha Marrufo MD [address] [place] [phone] documented as of this encounter Visit Diagnoses Diagnosis Acute non intractable tension-type headache Anxiety Anxiety state, unspecified documented in this encounter Care Teams Repossessor Relationship Specialty Start Date End Date Lasha Marrufo MD [address] [place] [address] PCP - General Internal Medicine 12/25/13 Farzad Sandhu MD [address] [place] [address] Cardiology 11/08/24 documented as of this encounter
--- OUTSIDE RECORDS SUMMARY | 2025-02-01 20:49 | XMS_ITS | Encounter Summary ---
Author Organization [employer] Address [address] [facility] [address] [place] [address] Care Team Providers Care Baccarat Dealer Name Role Phone Lasha Marrufo MD Primary Care Provide r Farzad Sandhu MD Unavailable [phone] Reason for Visit * Reason Comments Med Refill Encounter Details Date Type Department Care Team (Late st Contact Info) Description 10/28/2024 Refill [facility] [address] [place], [place] [phone] Lasha Marrufo MD [address] [place], [place] [phone] Acquired hypothyroidism; Mild intermittent asthma without complication [...] Description 02/18/2025 1:15 PM EST Office Visit [facility] [address] [place] [address] Lasha Marrufo MD [address] [place] [phone] documented as of this encounter Goals Goal Patient Goal Type Associated Problems Recent Progress Patient-Stated? Author Smoking cessation General No Willa Chaparro Help patient manage nicotine dependency General No iWlla Chaparro documented as of this encounter Visit Diagnoses Diagnosis Acquired hypothyroidism Unspecified hypothyroidism Mild intermittent asthma without complication documented in this encounter Additional Health Concerns Assessment Noted Time PHQ-9 Depression Total Score: 9 09/06/19 25 2:54 PM EDT documented as of this encounter Care Teams Baccarat Dealer Relationship Specialty Start Date End Date Lasha Marrufo MD [address] [place] [address] PCP - General Internal Medicine 12/25/13 Farzad Sandhu MD [address] [place] [address] Cardiology 11/08/24 documented as of this encounter
--- OUTSIDE RECORDS SUMMARY | 2025-02-01 20:49 | XMS_ITS | Data Portability ---
Author Organization [place] - [facility], Allergy Address [address] [address] Care Team Providers Care Station Captain Name Role Phone SARA XAVIER Primary Care [...] copy of the audiogram, a list of [facility] hearing aid providers, and medical clearance for [...] recorded . Imaging barium swallow study - ugandan speaker 2023 024 [facility] Diagnosit Imaging Dept, [address] [place], [address], 11:05:06 Medication Orders None recorded . Patient [...] 25 04/30/2024 XR, esoph agram See Note [facility] , a member of [facility] Jason greene Name: YUAN MORALES Date of : 1959 Reason for Exam: DYSPHA SAVANAH, UNSPEC IFIED Exam Date: 2024 [id number] EST Report Status : Final Orderi ng Provid er: LAURIE HYDE PCP: PIOTR GS: Double contra st esopha gram perfor med. COMPAR BENJAMIN: No prior esopha gram imagin g HISTOR Y: Jason greene is a 64-yea r-old female with histor y of dyspha savanah, GERD. Building Official radiog raphs: 1 view chest radiog raph [...] Date: 2024 16:24 ET [facility]st [id number] Transc ribed By: Self Edit Transc ribed Date: 2024 13:04 ET Reside nt/PA/ STREET FLUSHER DRIVER: Halley Fishman [facility] [address] [facility], [place], [address], 05/15/2024 18:16:30 Result Notes Documentation Provider Name and Address Organization Details Recorded Time Xr, Esophagram : See Note [facility], a member of [employer] Patient Name: YUAN WATERS Date of : 1960 Reason for Exam: DYSPHAGIA, UNSPECIFIED Exam Date: 04/30/2024 [id number] EST Report Status: Final Ordering Provider: LAURIE HYDE PCP: FINDINGS: Double contrast esophagram performed. COMPARISON: No prior esophagram imaging HISTORY: Patient is a 64-year-old female with history of dysphagia, GERD. Building Official radiographs: 1 view chest radiograph demonstrates cardiac [...] Signed Date: 05/01/2024 16:24 ET Workstation ID: [id number] Transcribed By: Self Edit Transcribed Date: 04/30/2024 13:04 ET Resident/PA/STREET FLUSHER DRIVER: Halley Fishman MD [address] [place] [address], [address], [place] - [facility] 05/15/2024 18:16:30 Problems Name Problem SNOMED Code Status Onset Date Resolution Date Notes Provider Name and Address Organization Details Recorded Time Otalgia of left ear 9551100739 Active 2018 Otalgia, left ear; Note: Date Diagnosed : 07/11/2018 1:20 PM (H92.02) Not Available [facility] 4 02:22:05 Sensorine ural hearing loss of bilateral ears 216237557 Active 2019 Sensorine ural hearing loss, bilateral ; Note: Date Diagnosed : 0 2:11 PM (H90.3) Not Available [facility] 4 02:22:06 Impacted cerumen in right ear 43133235023 96341 Active 2023 LAURIE HYDE MD [address] [facility] [place] [address], [place], [address] , [place] - [facility] 4 12:23:59 Dysphagia 17922066 Active 2023 LAURIE HYDE MD [address] [facility] [place] [address], [place], [address] , [place] [facility] 4 10:45:04 Problem Notes None recorded. Procedures Surgical History Date Name Laterality Status Provider Name and Address Organization Details Recorded Time 11/03/2023 FOL_DP completed LAURIE HYDE MD [address] [place] [address],[place] [address], [place], [address], [place] [facility] 11/03/2023 10:45:32 08/30/2023 Wax_DP completed LAURIE HYDE MD [address] [place] [address],[place] [address], [place], [address], [place] [facility] 08/30/2023 12:23:50 08/30/2023 Air only Audio - [id number] completed SHWETA ALLEN MA, CCC-A [address] [facility],[place] [address], [place], [address], [place] - [facility] 08/30/2023 11:05:08 08/30/2023 SRT & Tymps - 24543 & 22519 completed SHWETA ALLEN MA, CCC-A [address] [facility],[place] [address], [place], [address], [place] [facility] 08/30/2023 11:05:44 Imaging Results None recorded. Procedure Notes None recorded. Medical Equipment None Reported. Allergies Allergen ID Allergen Name Allergen Category Reaction Reaction Severity Criticality Documentation Date Start Date Code Code System Note Provider Name and Address Organization Details Recorded Time 22123 pseudoeph edrine Not available other Not available Not available 08/15/2023 8896 RxNorm React ion: unkno wn, unspe cifie d;; Not Available [facility] 00:54:32 Medications Name Sig Start Date Stop Date Status Note LastModified by Organization Details LastModified Time cyclobenzapr ine 10 mg tablet 2018 active Medication ID: [id number] Durat ion Value: 10 Brand Name: cyclobenzapr ine Send Method: E-Prescribed Subs Allowed: subs OK Special Instruction: TAKE 1 TABLET BY MOUTH THREE TIMES DAILY Medica tionGenericN soo: cyclobenzapr ine Not Available Not Available Not Available ipratropium 0.5 mg-albuterol 3 mg (2.5 mg base)/3 mL nebulization soln 2018 active Medication ID: [id number] Durat ion Value: 8 Brand Name: ipratropium- albuterol Se nd Method: E-Prescribed Subs Allowed: subs OK Special Instruction: INHALE 1 AMPULE USING A NEBULIZER FOUR TIMES DAILY ONLY FOR WHEEZING & NOT FOR COUGH Medica tionGenericN soo: ipratropium- albuterol Not Available Not Available Not Available ranitidine 300 mg tablet 2018 active Medication ID: [id number] Durat ion Value: 30 Brand Name: ranitidine HCl Send Method: E-Prescribed Subs Allowed: subs OK Special Instruction: TAKE 1 TABLET TWICE DAILY Medica tionGenericN soo: ranitidine HCl Not Available Not Available Not Available metoprolol succinate ER 100 mg tablet,exten ded release 24 hr 2018 active Medication ID: [id number] Durat ion Value: 30 Brand Name: metoprolol succinate Se nd Method: E-Prescribed Subs Allowed: subs OK Special Instruction: TAKE 1 TABLET EVERY EVENING Medi cationGeneri cName: metoprolol succinate Not Available Not Available Not Available clobetasol 0.05 % topical cream 2018 active Medication ID: [id number] Durat ion Value: 15 Brand Name: clobetasol S end Method: E-Prescribed Subs Allowed: subs OK Special Instruction: APPLY TO THE AFFECTED AREA(S) SPARINGLY TWICE DAILY Medica tionGenericN soo: clobetasol Not Available Not Available Not Available clopidogrel 75 mg tablet 2018 active Medication ID: [id number] Durat ion Value: 30 Brand Name: clopidogrel Send Method: E-Prescribed Subs Allowed: subs OK Special Instruction: TAKE 1 TABLET EVERYDAY AT NOON [facility] clop[facility] Not Available Not Available Not Available aspirin 81 mg tablet,delay ed release 2018 active Medication ID: [id number] Durat ion Value: 30 Brand Name: aspirin Send Method: E-Prescribed Subs Allowed: subs OK Special Instruction: TAKE 1 TABLET EVERY MORNING Medi cationGeneri cName: aspirin Not Available Not Available Not Available levothyroxin e 75 mcg tablet 2018 active Medication ID: [id number] Durat ion Value: 30 Brand Name: levothyroxin e Send Method: E-Prescribed Subs Allowed: subs OK Special Instruction: TAKE 1 TABLET EVERY MORNING Medi cationGeneri cName: levothyroxin e Not Available Not Available Not Available dicyclomine 20 mg tablet 2018 active Medication ID: [id number] Durat ion Value: 30 Brand Name: dicyclomine Send Method: E-Prescribed Subs Allowed: subs OK Special Instruction: TAKE 1 TABLET BY MOUTH 2-4 TIMES PER DAY Medicati onGenericNam e: dicyclomine Not Available Not Available Not Available verapamil ER (PM) 300 mg capsule 24hr pellet CT,ext.relea se 2018 active Medication ID: [id number] Durat ion Value: 30 Brand Name: verapamil Se nd Method: E-Prescribed Subs Allowed: subs OK Special Instruction: TAKE 1 CAPSULE EVERY DAY AT NOON [facility] me: verapamil Not Available Not Available Not Available nitroglyceri n 0.4 mg sublingual tablet 2018 active Medication ID: [id number] Durat ion Value: 8 Brand Name: nitroglyceri n Send Method: E-Prescribed Subs Allowed: subs OK Special Instruction: DISSOLVE 1 TABLET UNDER THE TONGUE EVERY 5 MINUTES NEEDED FOR CHEST PAIN. DO NOT EXCEED A TOTAL OF 3 DOSES IN 15 MINUTES. Med icationGener icName: nitroglyceri n Not Available Not Available Not Available docusate sodium 100 mg capsule 2018 active Medication ID: [id number] Durat ion Value: 30 Brand Name: docusate sodium Send Method: E-Prescribed Subs Allowed: subs OK Special Instruction: TAKE 1 CAPSULE TWICE DAILY IN THE MORNING AND IN THE EVENING Medi cationGeneri cName: docusate sodium Not Available Not Available Not Available montelukast 10 mg tablet 2018 active Medication ID: [id number] Durat ion Value: 30 Brand Name: montelukast Send Method: E-Prescribed Subs Allowed: subs OK Special Instruction: TAKE 1 TABLET BY MOUTH EVERY MORNING Medi cationGeneri cName: montelukast Not Available Not Available Not Available Proventil HFA 90 mcg/actuatio n aerosol inhaler 2018 active Medication ID: [id number] Durat ion Value: 18 Brand Name: Proventil HFA Send Method: E-Prescribed Subs Allowed: subs OK Special Instruction: INHALE 2 PUFFS BY MOUTH EVERY 4 TO 6 HOURS NEEDED Medic ationGeneric Name: Proventil HFA Not Available Not Available Not Available hydralazine 50 mg tablet 2018 active Medication ID: [id number] Durat ion Value: 30 Brand Name: hydralazine Send Method: E-Prescribed Subs Allowed: subs OK Special Instruction: TAKE 1 TABLET THREE TIMES DAILY IN THE MORNING, AT NOON, AND IN THE EV ENING may take extra dose if blood pressure is elevated Med icationGener icName: hydralazine Not Available Not Available Not Available furosemide 20 mg tablet 2018 active Medication ID: [id number] Durat ion Value: 30 Brand Name: furosemide S end Method: E-Prescribed Subs Allowed: subs OK Special Instruction: TAKE 1 TABLET EVERY MORNING [facility] cationGeneri cName: furosemide Not Available Not Available Not Available polyethylene glycol 3350 17 gram/dose oral powder 2018 active Medication ID: [id number] Durat ion Value: 30 Brand Name: polyethylene glycol 3350 Send Method: E-Prescribed Subs Allowed: subs OK Special Instruction: TAKE 17 GM MIXED IN 8 OUNCES OF WATER ONCE DAILY Medica tionGenericN soo: polyethylene glycol 3350 Not Available Not Available Not Available betamethason e dipropionate 0.05 % topical ointment 2018 active Medication ID: [id number] Durat ion Value: 15 Brand Name: betamethason e dipropionate Send Method: E-Prescribed Subs Allowed: subs OK Special Instruction: APPLY TO THE AFFECTED AREA(S) SPARINGLY TWICE DAILY Medica tionGenericN soo: betamethason e dipropionate Not Available Not Available Not Available losartan 100 mg tablet 2018 active Medication ID: [id number] Durat ion Value: 30 Brand Name: losartan Sen d Method: E-Prescribed Subs Allowed: subs OK Special Instruction: TAKE 1 TABLET EVERY DAY AT NOON Medicat ionGenericNa me: losartan Not Available Not Available Not Available fluticasone propionate 50 mcg/actuatio n nasal spray,suspen jenny 2018 active Medication ID: [id number] Durat ion Value: 30 Brand Name: fluticasone propionate S end Method: E-Prescribed Subs Allowed: subs OK Special Instruction: USE 2 SPRAYS IN EACH NOSTRIL EVERY DAY Medicati onGenericNam e: fluticasone propionate Not Available Not Available Not Available Mapap Arthritis Pain 650 mg tablet,exten ded release 2018 active Medication ID: [id number] Durat ion Value: 30 Brand Name: Mapap Arthritis Pain Send Method: E-Prescribed Subs Allowed: subs OK Special Instruction: TAKE 1 TABLET BY MOUTH EVERY 8 HOURS NEEDED Medic ationGeneric Name: Mapap Arthritis Pain Not Available Not Available Not Available rosuvastatin 40 mg tablet 2018 active Medication ID: [id number] Durat ion Value: 30 Brand Name: rosuvastatin Send Method: E-Prescribed Subs Allowed: subs OK Special Instruction: TAKE 1 TABLET EVERY EVENING Medi cationGeneri cName: rosuvastatin Not Available Not Available Not Available topiramate 50 mg tablet 2018 active Medication ID: [id number] Durat ion Value: 30 Brand Name: topiramate S end Method: E-Prescribed Subs Allowed: subs OK Special Instruction: TAKE 1 AND 1/2 TABLETS AT BEDTIME Medi cationGeneri cName: topiramate Not Available Not Available Not Available duloxetine 60 mg capsule,steffen yed release 2018 active Medication ID: [id number] Durat ion Value: 30 Brand Name: duloxetine S end Method: E-Prescribed Subs Allowed: subs OK Special Instruction: TAKE 1 CAPSULE BY MOUTH EVERY MORNING Medi cationGeneri cName: duloxetine Not Available Not Available Not Available Flovent HFA 220 mcg/actuatio n aerosol inhaler 2018 active Medication ID: [id number] Durat ion Value: 30 Brand Name: Flovent HFA Send Method: E-Prescribed Subs Allowed: subs OK Special Instruction: INHALE 2 PUFFS TWICE DAILY RINSE MOUTH AFTER USING. Medic ationGeneric Name: Flovent HFA Not Available Not Available Not Available Alaway 0.025 % (0.035 %) eye drops 2018 active Medication ID: [id number] Durat ion Value: 30 Brand Name: Castro Send Method: E-Prescribed Subs Allowed: subs OK Special Instruction: PLACE 1 DROPS IN EACH EYE TWICE DAILY FOR ITCHING Medi cationGeneri cName: Alaway Not Available Not Available Not Available Vitals Date Recorded Body height Body mass index (BMI) Body weight Provider Name and Address Organization Details Last Updated DateTime 08/30/2023 167.64 cm 37.4 kg/m2 299668.43 g Sangita Sharp [facility] 08/30/2023 12:06:43 Date Recorded Body height Body mass index (BMI) Body weight Provider Name and Address Organization Details Last Updated DateTime 11/03/2023 167.64 cm 37.4 kg/m2 151472.43 g Sangita Sharp [facility] 11/03/2023 10:33:41 Social History None recorded. [...] Note 1804 LAURIE HYDE MD [facility] [address] [address] 08/30/2023 10:23:58 08/30/2023 12:24:53 Sensorineural hearing loss of bilateral ears [id number] H90.3 Mild-moder ate SNHL for both ears.Tympa nogram: Type A for both ears. Impacted c erumen in right ear [id number] 895075 H61.21 cerumen removed from right ear 62750 LAURIE HYDE MD [facility] [address] [address] 11/03/2023 10:31:27 11/03/2023 10:55:33 Dysphagia [id number] R13.10 Health Concerns Section Related Observation LastModified by Organization Detai ls LastModified Time None Recorded Concern Status LastModified by Organization Details LastModified Time None Recorded Advance Directives Directive None Recorded Payers Insurance Date Sequence Insurance Name Policy Number Policy Sen Covered Member ID Sen Member ID Guarantor Name 05/21/2024 1 [place] [employer] [employer] (MEDICAID) Yuan Waters [id number] Yuan Waters Notes Date Note Type Note Provider Name and Address Organization Details Recorded Time 08/30/19 24 text/htm l ROS as noted in the HPI ugandan - ipadprogressive hearing losslast test with our office 03/30/2020no previous trial of amplificationno sig noise exposure LAURIE HYDE MD [address] [place] [address], [address], [facility] - [facility] 08/30/2023 12:25:03 11/03/19 24 text/htm l ROS as noted in the HPI ugandan - familydysphagiadifficulty swallow pillshead and neck turn to left side allows to cough pill outonset about 07/2023voice normalno hemoptysisno otalgia tobacco - 1/2ppd LAURIE HYDE MD [address] [place] [address],[place] [address], [place], [address], [facility] 11/03/2023 10:54:25 OBGyn Episode No OBEpisode recorded.
--- OUTSIDE RECORDS SUMMARY | 2025-02-01 20:49 | XMS_ITS | Encounter Summary ---
Author Organization [employer] Address [address] [place] [address] [address] [place] [address] Care Team Providers Care Assistant Principal Name Role Phone Lasha Marrufo MD Primary Care Provide r Farzad Sandhu MD Unavailable [phone] Encounter Details Date Type Department Care Team (Late st Contact Info) Description 04/13/2022 Orders Only [facility] [address] [place] [phone] Elsa Julien LPN Social History Tobacco Use [...] Description 02/18/2025 1:15 PM EST Office Visit [facility] [address] [place] [phone] Lasha Marrufo MD [address] [place] [address] documented as of this encounter Visit Diagnoses Not on filedocumented in this encounter Care Teams Assistant Principal Relationship Specialty Start Date End Date Lasha Marrufo MD [address] [place] [id number] PCP - General Internal Medicine 9/24/14 Farzad Sandhu MD [address] [place] [address] Cardiology 11/08/24 documented as of this encounter
--- OUTSIDE RECORDS SUMMARY | 2025-02-01 20:49 | XMS_ITS | Encounter Summary ---
Author Organization [employer] Address [address] [facility] [address] [place] [address] Care Team Providers Care Customer Project Manager Name Role Phone Lasha Marrufo MD Primary Care Provide r Farzad Sandhu MD Unavailable [phone] Reason for Visit * Reason Onset Date Comments appt PA approved 12/22/2023 Encounter Details Date Type Department Care Team (Late st Contact Info) Description 12/22/2023 Telephone [facility] [address] [place] [address] Jeanne Arreola, DDS [address] [place] [address] appt PA approved Social History Tobacco Use [...] Description 02/18/2025 1:15 PM EST Office Visit [facility] [address] [place], [place] [phone] Lasha Marrufo MD [address] [place] [address] documented as of this encounter Goals Goal [...] documented as of this encounter Care Teams Customer Project Manager Relationship Specialty Start Date End Date Lasha Marrufo MD [address] [place] [address] PCP - General Internal Medicine 12/25/13 Farzad Sandhu MD [address] [place] [address] Cardiology 11/08/24 documented as of this encounter
--- OUTSIDE RECORDS SUMMARY | 2025-02-01 20:49 | XMS_ITS | Encounter Summary ---
Author Organization [employer] Address [address] [place] [address] [address] [place] [address] Care Team Providers Care Social Director Name Role Phone Lasha Marrufo MD Primary Care Provide r Farzad Sandhu MD Unavailable [phone] Encounter Details Date Type Department Care Team (Late st Contact Info) Description 03/31/2022 Telephone [facility] [address] [place] [phone] Lasha Marrufo MD [address] [place] [address] Social History Tobacco Use Types Packs/Day Years [...] 1:15 PM EST Office Visit [facility] [address] [place] [phone] Lasha Marrufo MD [address] [place] [phone] documented as of this encounter Visit Diagnoses Not on filedocumented in this encounter Care Teams Social Director Relationship Specialty Start Date End Date Lasha Marrufo MD [address] [place] [address] PCP - General Internal Medicine 12/25/13 Farzad Sandhu MD [address] [place] [address] Cardiology 11/08/24 documented as of this encounter
--- OUTSIDE RECORDS SUMMARY | 2025-02-01 20:49 | XMS_ITS | Patient Health Record ---
Author Organization [facility] Address [address] [place] [address] Care Team Providers Care Machinery Engineer Name Role Phone Mirella Jara MD, Lasha Primary Care Provide Medardo Thornton Jr Unavailable [phone] Allergies Allergen (clinical drug ingredient) Drug/Non Drug Allergy documented on EMR Reaction Allergy Type Onset Date Status codeine Codeine Sulfate Unknown Drug Allergy A ctive Results Component Value Reference Range Notes Complete Blood Count no Diff Reviewed date:04/02/2024 02:01:30 PM Interpretation: Performing Lab:[facility], [address] [place] [address] Notes/Report: White Blood Count 8.0 4.8-10.8 X10*3/uL [...] Panel Reviewed date:04/02/2024 02:01:14 PM Interpretation: Performing Lab:[facility], [address] [place] [phone] Notes/Report: Bilirubin Total 0.2 0.0-1.0 mg/dL Bilirubin Direct < 0.2 0.0-0.5 mg/dL Aspartate Amino Transferase 21 5-31 U/L Alanine Aminotransferase 22 0-31 U/L Total Protein 7.7 6.5-8.0 g/dL Albumin Level 4.1 3.5-5.0 g/dL Alkaline Phosphatase 128 39-117 U/L IRON PROFILE Reviewed date:04/02/2024 02:01:24 PM Interpretation: Performing Lab:[facility], [address] [place] [phone] Notes/Report: Iron 41 30-160 mcg/dL Total Iron Binding Capacity 335 228-428 mcg/dL Percent Iron Saturation 12 15-50 % Unsaturated Iron Binding 294 Ferritin Reviewed date:04/02/2024 02:01:49 PM Interpretation: Performing Lab:[facility], [address] [place] [phone] Notes/Report: Ferritin 11 10-250 ng/mL Liver Fibrosis Pnl Reviewed date:04/08/2024 08:30:50 AM Interpretation: Performing Lab:[facility], [address] [place] [phone] Notes/Report: Liver Fibrosis Score 0.19 Liver Fibrosis [...] a>0.62 and a<=1.00 : A3 (severe activity) SVV-Hsrxp-1-Macroglobuli n 219 106-279 mg/dL FIB-Haptoglobin 217 43-212 mg/dL FIB-Apolipoprotein A1 153 101-198 mg/dL FIB-Total Bilirubin 0.2 0.2-1.2 mg/dL FIB-GGT 119 3-65 U/L FIB-ALT 14 6-29 U/L Reference ID [id number] Footnote SEE NOTE The reliability of results is dependent on compliance with the preanalytical and analytical conditions recommended by [employer]. The tests have to be deferred for: [...] The performance characteristics have been determined by [facility]. It has not been cleared or approved by the U.S. Food and Drug Administration. Performance characteristics refer to the analytical performance of the test. [employer], the associated logo, Hyperink and all associated [employer] givens are the registered trademarks of [employer]. All third green party givens - (R) and (TM) - are the property of their respective owners. (C) 3557-1342 [employer]. All rights reserved. THIS TEST WAS PERFORMED AT: [facility] [address] [place] [address] TRAVIS BOO MD,PHD,TRINY SANDEEP Reflex Titer and Pattern Reviewed date:04/05/2024 02:03:11 PM Interpretation: Performing Lab:[facility], [address] [place] [phone] Notes/Report: Anti Nuclear Antibody Screen NEGATIVE NEGATIVE [...] Negative International Consensus on SANDEEP Patterns (https://doi.org/10.151 5/vntn-9651-0994) For additional information, please refer to http://education.Utilize Health/faq/FAQ1 39 (This link is being provided for informational/ educational purposes only.) THIS TEST WAS PERFORMED AT: [facility] [address] [place] [phone] JEAN PAUL LEWIS MD Anti Nuclear Antibody Titer TNP Anti Nuclear Antibody Pattern TNP SANDEEP Titer 2 TNP SANDEEP Pattern 2 TNP SANDEEP Titer 3 TNP SANDEEP Pattern 3 TNP Mitochondrial Antibody Reviewed date:04/09/2024 03:01:22 PM Interpretation: Performing Lab:[facility], [address] [place] [phone] Notes/Report: Mitochondrial Antibodies NEGATIVE NEGATIVE The specimen was negative for cytoplasmic antibodies, however additional staining was observed suggesting the presence of Antinuclear Antibodies. Consider requesting order code 249, SANDEEP Screen, IFA with Reflex to Titer and Pattern, or order code [id number], SANDEEP Screen, IFA w/reflex Titer/Pattern, and Reflex to Multiplex 11 Ab [place], if clinically indicated. THIS TEST WAS PERFORMED AT: [facility] [address] [address] JEAN PAUL LEWIS MD Mitochondrial Ab Titer TNP Smooth Muscle Antibody Reviewed date:04/09/2024 03:01:16 PM Interpretation: Performing Lab:[facility], [address] [place] [phone] Notes/Report: Smooth Muscle Antibody 25 <20 U [...] type 1. THIS TEST WAS PERFORMED AT: [facility] [address] SIGRID MOLINA MD,PHD Hepatitis A,B,C Profile Reviewed date:04/02/2024 02:01:41 PM Interpretation: Performing Lab:[facility], [address] [place] [phone] Notes/Report: Hepatitis A Antibody IgM Nonreactive Nonreactive [...] Blood Reviewed date:04/02/2024 01:59:23 PM Interpretation: Performing Lab:[facility], [address] [place] [phone] Notes/Report: Glucose, Whole Blood 106 60-115 mg/dL METER # : [id number] Pathology Reviewed date:04/05/2024 03:24:48 PM Interpretation: Performing Lab:[facility], [address] [place] [phone] Notes/Report: Complete Blood Count Auto Di ff Reviewed date:10/24/2024 08:44:04 AM Interpretation: Performing Lab:[facility], [address] [place] [phone] Notes/Report: White Blood Count 7.8 4.8-10.8 X10*3/uL [...] Panel Reviewed date:10/24/2024 08:39:47 AM Interpretation: Performing Lab:[facility], [address] [place] [phone] Notes/Report: Sodium 143 135-145 mmol/L Potassium 3.9 [...] Panel Reviewed date:10/24/2024 08:39:21 AM Interpretation: Performing Lab:[facility], [address] [place] [phone] Notes/Report: Triglycerides 147 <150 mg/dL Desirable Triglyceride: [...] Pattern Reviewed date:10/30/2024 05:07:02 PM Interpretation: Performing Lab:[facility], [address] [place] [phone] Notes/Report: Anti Nuclear Antibody Screen POSITIVE NEGATIVE SANDEEP IFA is a first line screen for detecting the presence of up to approximately 150 autoantibodies in various autoimmune diseases. A positive SANDEEP IFA result is suggestive of autoimmune disease and reflexes to titer and pattern. Further laboratory testing may be considered if clinically indicated. For additional information, please refer to http://education.Utilize Health/faq/FAQ1 77 (This link is being provided for informational/ educational purposes only.) Anti Nuclear Antibody Titer 1:1280 Reference Range <1:40 Negative 1:40-1:80 Low Antibody Level >1:80 Elevated Antibody Level Anti Nuclear Antibody Pattern Nuclear, Nucleolar Nucleolar pattern is associated with systemic sclerosis (scleroderma), systemic sclerosis/polymyositis overlap and Sjogren's syndrome. AC-8,9,10: Nucleolar International Consensus on SANDEEP Patterns (https://doi.org/10151 jmvq-9851-9503) SANDEEP Titer 2 1:320 Reference Range <1:40 Negative 1:40-1:80 Low Antibody Level >1:80 Elevated Antibody Level SANDEEP Pattern 2 Nuclear, Homogeneous Homogeneous pattern is associated with systemic lupus erythematosus (SLE), drug-induced lupus and juvenile idiopathic arthritis. AC-1: Homogeneous International Consensus on SANDEEP Patterns (https://doi.org/10151 xqon-9160-6712) THIS TEST WAS PERFORMED AT: [facility] [address] [place] [phone] JEAN PAUL LEWIS MD SANDEEP Titer 3 TNP SANDEEP Pattern 3 TNP US abdomen complete Reviewed date:10/24/2024 08:44:16 AM Interpretation: Performing Lab: Notes/Report: [place] [address] Ultrasound Report Signed Patient: Yuan Waters MR#: [id number] : 1960 Acct:[id number] Age/Sex: 64 / F ADM Date: 10/23/24 Loc: HO.US Attending Dr: Medardo Delgado MD Ordering Physician: Medardo Delgado MD Date of Service: 10/23/24 Procedure(s): US abdomen complete Accession Number(s): [id number] cc: Medardo Delgado MD; Lasha Castillo MD [...] OV> 10/23/24 0943 DD/ 0835 TD/TT: 10/23/2417 Logistics Supervisor: HIV Ab/Ag Reviewed date:10/24/2024 08:38:16 AM Interpretation: Performing Lab:[facility], [address] [place] [phone] Notes/Report: HIV AB/AG Nonreactive Nonreactive HIV-1 p24 [...] limit of detection of this assay. The [employer] HIV Ag/Ab Combo assay result and supplemental assay results should be interpreted in conjunction with the patient's clinical presentation, history and other laboratory results. If the results are inconsistent with clinical evidence, additional testing is suggested to confirm the result. Reason For Referral Referring Provider First Name Lasha Referring Provider Last Name Mirella perez Referring Provider Speciality Internal M edicine Referred Organization [facility] Referred Provider Medardo Delgado Jr Referred Address [address] [place] [address],[place] [address],[place], [place],[address],[place] Referred Provider Specialty Gastroentero logy General Notes Kelsi Christianson 2024 09:59:43 AM >requested a [facility] referral from [facility] for visit with dr akins on 08-29-24 Referral Priority Routine Medications Medication SIG (Take, Route, Frequency, Duration) Notes Start Date End Date Status Duloxetine & Lidocaine-Menthol 60 & 5-3 MG & % as directed Combination Acti ve Docusate Sodium 100 MG 1 capsule as need ed Orally Once a day; Duration: 30 day(s) Active Singulair 10 MG 1 [...] 2 SPRAYS IN EACH NOSTRIL EVERY DAY Nasal; Duration: 30 Active Toprol XL 100 MG 1 tablet Orally Once a day Active hydrALAZINE HCl 25 MG 1 tablet Orally th ree x a day Active Famotidine 40 MG 1 tablet Orally ever y 12 hrs; Duration: 30 days 02/26/2019 Active Topiramate 50 MG TAKE 1 AND 1/2 TABLE TS BY MOUTH AT BEDTIME Oral; Duration: 30 Active DULoxetine HCl 60 MG TAKE 1 CAPSULE BY M OUTH EVERY MORNING Oral; Duration: 30 Active Simethicone 180 MG 1 capsule after meal s and at bedtime as needed Orally Twice a day; Duration: 30 days 08/31/2023 Active Polyethylene Glycol 3350 - 1 packet mixe d with 8 ounces of fluid Orally Once a day; Duration: 90 days 02/21/2016 Active Dicyclomine HCl 20 MG 1 tablet Orally 2- 4 times a day; Duration: 30 days Active ClearLax 17 GM/SCOOP 2 scoops in 8 ounce s of water Orally once a day; Duration: 30 days 05/24/2022 Active Pepcid 40 MG 1 Orally b.i.d.; Dur ation: 30 days Active Cymbalta Active Montelukast Sodium 10 MG TAKE 1 TABLET B Y MOUTH EVERY EVENING Oral; Duration: 30 Active Verapamil HCl ER 300 MG 1 capsule Orally Once a day; Duration: 30 day(s) Active Aspirin Low Dose 81 MG TAKE 1 TABLET BY MOUTH EVERY MORNING Oral; Duration: 30 Active Magnesium Oxide 400 (240 Mg) MG TAKE 1 TABLET BY MOUTH EVERY MORNING Oral; Duration: 30 Active hydrOXYzine HCl 25 MG TAKE 1 TABLET BY M OUTH THREE TIMES DAILY NEEDED Oral; Duration: 10 Active metFORMIN HCl ER 500 MG 1 tablet with ev ening meal Orally Once a day; Duration: 30 day(s) Active Metoprolol Succinate ER 100 MG TAKE 1 TABLET BY MOUTH EVERY EVENING Oral; Duration: 30 Active Hydrocortisone (Perianal) 2.5 % 1 application Externally Twice a day; Duration: 90 days 03/03/2022 Active Furosemide 20 MG 1 tablet Orally Once a day; Duration: 30 day(s) Active Topiramate ER 50 MG 1 capsule Orally Onc e a day; Duration: 30 day(s) Active Trulicity 0.75 MG/0.5ML INJECT ONE PEN ( =0.75MG) SUBCUTANEOUSLY ONCE A WEEK DIRECTED Subcutaneous; Duration: 28 Active Rosuvastatin Calcium 40 MG 1 tablet Oral ly Once a day; Duration: 30 day(s) Active Celecoxib 200 MG TAKE 1 CAPSULE BY MO UTH TWICE DAILY Oral; Duration: 30 Active Immunizations Vaccine Route Administration Date Status Comme nts Influenza Unknown 12/02/2018 Administered Influenza Unknown 01/15/2020 Administered Influenza Unknown 01/01/2022 Administered Influenza Unknown 08/31/2023 Refused Problems Problem Type SNOMED Code ICD Code Onset Dates Problem Status W/U Status Risk Notes Problem Rectal bleeding (45410076) Rectal bleeding (K62.5) Active confirmed Problem Constipation (46823623) Constipation (K59.00) Active confirmed Problem Gastroesophageal reflux disease (790461076) Gastroesophageal reflux disease (K21.9) Active confirmed Problem Gastroesophageal reflux disease without esophagitis (328744479) Gastroesophageal reflux disease without esophagitis (K21.9) Active confirmed Problem Fatty liver (462226187) Fatty liver (K76.0) Active confirmed Problem Hiatal hernia (24561325) Hiatal hernia (K44.9) Active confirmed Problem Dysphagia (39384932) Dysphagia, unspecified type (R13.10) Active confirmed Problem Abnormal UGI series (R93.3) Active confirmed Problem Irritable bowel syndrome characterized by constipation (327752549) Irritable bowel syndrome with constipation (K58.1) Active confirmed Problem Gastroesophageal reflux disease (430190739) GERD without esophagitis (K21.9) Active confirmed Problem Left upper quadrant pain (583945466) LUQ pain (R10.12) Active confirmed Problem Left lower quadrant pain (873896773) LLQ pain (R10.32) Active confirmed Problem Epigastric mass (923064006) Epigastric mass (R19.06) Active confirmed Vital Signs Blood pressure diastolic 77 mm Hg 08/29/2024 Height 66.5 in 08/29/2024 Blood pressure systolic 111 mm Hg 08/29/2024 Weight 225 lbs 08/29/2024 BMI 35.77 kg/m2 08/29/2024 Encounters Encounter Location Date Provider Diagnosis [facility] Outpatient [address] [place] [id number] 04/02/2024 Medardo Delgado Jr Abnormal UGI series R93.3 [facility] [address] [place] [phone] 03/14/2024 Medardo Delgado Jr Abnormal UGI series R93.3 ; Dysphagia, unspecified type R13.10 and Fatty liver K76.0 [facility] [address] [place] [phone] 08/29/2024 Medardo Delgado Jr Abdominal pain R10.9 ; Gastroesophageal reflux disease without esophagitis K21.9 and Constipation K59.00 [facility] [address] [place] [phone] 02/19/2024 Medardo Delgado Jr Gastroesophageal reflux disease without esophagitis K21.9 [facility] [address] [place] [phone] 02/21/2024 Medardo Delgado Jr [facility] [address] [place] [phone] 03/19/2024 Medardo Amezcuasarah Cline [facility] [address] [place] [phone] 04/02/2024 Medardo Delgado Jr [facility] [address] [place] [address] 04/05/2024 Medardo Pauliffsarah Cline [facility] [address] [place] [phone] 10/24/2024 Medardo Delgado [facility] [address] [place] [phone] 10/30/2024 Medardo Amezcuasarah Cline Assessments Encounter Date Diagnosis (ICD Code) Assessment [...] Order Date BUN 01/23/2020 BUN 04/13/2020 CREATININE 04/13/2020 CREATININE 01/23/2020 LIVER PROFILE 03/14/2024 [...] Name:Medardo vallecillo Jr, 08/14/2025 03:35:00 PM, [address], [address], [place], [address], Insurance Providers Payer Name Payer Address Payer Phone Subscriber Number Group Number Insured Name Patient Relationship to Insured Coverage Start Date Coverage End Date MEDICAID OF [facility] [address] [place] [place] [phone] [id number] YUAN LR Self - patient is the insured Medical (General) History Medical History History ICD Code hypertension obesity Hypothyroidism asthma arthritis SANDEEP + colonoscopy 06/26/19, 1 adenoma, five-yea r followup recommended Gastroesophageal reflux dise [facility], EGD/03/23, no Santos's esophagus or H. pylori.EGD 03/26, no H. pylori, Santos's esophagus, or celiac disease. Obstructive sleep apnea type II diabetes Surgical History Surgery Date(Month/Year) knee surgery-right cholecystectomy tubal ligation breast biopsy
--- OUTSIDE RECORDS SUMMARY | 2025-02-01 20:49 | XMS_ITS | Encounter Summary ---
Author Organization [employer] Address [address] [address] [place] [address] Care Team Providers Care Enterprise Applications Manager Name Role Phone Lasha Marrufo MD Primary Care Provide r Farzad Sandhu MD Unavailable [phone] Reason for Visit * Reason Comments Med Refill Encounter Details Date Type Department Care Team (Late st Contact Info) Description 01/25/2025 Refill [facility] [address] [place], [place] [phone] Lasha Marrufo MD [address] [place], [place] [phone] Smoker Social History Tobacco Use Types Packs/Day Years [...] Description 02/18/2025 1:15 PM EST Office Visit [facility] [address] [place] [address] Lasha Marrufo MD [address] [place] [address] documented as of this encounter Goals Goal Patient Goal Type Associated Problems Recent Progress Patient-Stated? Author Smoking cessation General No Willa Chaparro Help patient manage nicotine dependency General No Willa Chaparro documented as of this encounter Visit Diagnoses Diagnosis Smoker Tobacco use disorder documented in this encounter Additional Health Concerns Assessment Noted Time PHQ-9 Depression Total Score: 9 09/06/19 25 2:54 PM EDT documented as of this encounter Care Teams Enterprise Applications Manager Relationship Specialty Start Date End Date Lasha Marrufo MD [address] [place] [address] PCP - General Internal Medicine 12/25/13 Farzad Sandhu MD [address] [place] [address] Cardiology 11/08/24 documented as of this encounter
--- OUTSIDE RECORDS SUMMARY | 2025-02-01 20:49 | XMS_ITS | Encounter Summary ---
Author Organization [employer] Address [address] [facility] [address] [place] [address] Care Team Providers Care Floriculturist Name Role Phone Lasha Marrufo MD Primary Care Provide r Farzad Sandhu MD Unavailable [phone] Reason for Visit * Reason Onset Date Comments tooth fell off partial again 11/21/2023 Encounter Details Date Type Department Care Team (Late st Contact Info) Description 11/21/2023 Telephone [facility] [address] [place] [address] Jeanne Arreola, DDS [address] [place], [place] [phone] tooth fell off partial again Social History [...] Description 02/18/2025 1:15 PM EST Office Visit [facility] [address] [place] [address] Lasha Marrufo MD [address] [place] [address] documented as of this encounter Goals Goal [...] documented as of this encounter Care Teams Floriculturist Relationship Specialty Start Date End Date Lasha Marrufo MD [address] [place] [address] PCP - General Internal Medicine 12/25/13 Farzad Sandhu MD [address] [place] [address] Cardiology 11/08/24 documented as of this encounter
--- OUTSIDE RECORDS SUMMARY | 2025-02-01 20:49 | XMS_ITS | Encounter Summary ---
Author Organization [employer] Address [address] [facility] [address] [place] [address] Care Team Providers Care Zinc Chloride Operator Name Role Phone Lasha Marrufo MD Primary Care Provide r Farzad Sandhu MD Unavailable [phone] Reason for Visit * Reason Onset Date Comments Nurse Triage 07/04/2024 Encounter Details Date Type Department Care Team (Late st Contact Info) Description 07/04/2024 Telephone [facility] [address] [place], [place] [phone] Lasha Marrufo MD [address] [place] [address] Nurse Triage Social History Tobacco Use Types [...] EDT Triage call returned with BLS # [id number] [employer]. Patient reports dizziness noted with standing. [...] Description 02/18/2025 1:15 PM EST Office Visit [facility] [address] [place] [address] Lasha Marrufo MD [address] [place] [address] documented as of this encounter Goals Goal [...] as of this encounter Care Teams Zinc Chloride Operator Relationship Specialty Start Date End Date Lasha Marrufo MD [address] [place] [address] PCP - General Internal Medicine 12/25/13 Farzad Sandhu MD [address] [place] [address] Cardiology 11/08/24 documented as of this encounter
--- OUTSIDE RECORDS SUMMARY | 2025-02-01 20:49 | XMS_ITS | Encounter Summary ---
Author Organization [employer] Address [address] [facility] [address] [place] [address] Care Team Providers Care Gis Professor Name Role Phone Lasha Marrufo MD Primary Care Provide r Farzad Sandhu MD Unavailable [phone] Reason for Visit * Reason Comments Med Refill Encounter Details Date Type Department Care Team (Late st Contact Info) Description 10/27/2024 Refill [facility] [address] [place], [place] [phone] Lasha Marrufo MD [address] [place], [place] [phone] Acquired hypothyroidism; Mild intermittent asthma without complication [...] Description 02/18/2025 1:15 PM EST Office Visit [facility] [address] [place] [address] Lasha Marrufo MD [address] [place] [address] documented as of this encounter Goals Goal [...] documented as of this encounter Care Teams Gis Professor Relationship Specialty Start Date End Date Lasha Marrufo MD [address] [place] [address] PCP - General Internal Medicine 12/25/13 Farzad Sandhu MD [address] [place] [address] Cardiology 11/08/24 documented as of this encounter
--- OUTSIDE RECORDS SUMMARY | 2025-02-01 20:49 | XMS_ITS | Clinical Summary ---
Author Organization [facility] Address [address] [place] [address] [place] [phone] Phone Care Team Providers Care Hand Former Name Role Phone Pcp, Unknown Primary Care [...] file Medical Devices Not on file Insurance [facility] C3 ACO C3 ACO C3 ACO C3 ACO ACO C3 ACO C3 ACO C3 ACO [facility] C3 ACO Care Teams Hand Former Relationship Specialty Start Date End Date Pcp, Unknown PCP - General 08/29/19 Additional Source Comments The information contained in this document represents components of the legal health record. It is not the complete legal health record.[facility]
--- OUTSIDE RECORDS SUMMARY | 2025-02-01 20:49 | XMS_ITS | Encounter Summary ---
Author Organization [employer] Address [address] [place] [address] [address] [place] [address] Care Team Providers Care Robotics Application Engineer Name Role Phone Lasha Marrufo MD Primary Care Provide r Farzad Sandhu MD Unavailable [phone] Reason for Visit * Reason Comments Med Refill Encounter Details Date Type Department Care Team (Late st Contact Info) Description 03/09/2022 Refill [facility] [address] [place] [phone] Lasha Marrufo MD [address] [place] [address] [phone] Acute migraine (Primary Dx) Social History Tobacco [...] 1:15 PM EST Office Visit [facility] [address] [place] [phone] Lasha Marrufo MD [address] [place] [phone] documented as of this encounter Visit Diagnoses Diagnosis Acute migraine- Primary documented in this encounter Care Teams Robotics Application Engineer Relationship Specialty Start Date End Date Lasha Marrufo MD [address] [place] [address] PCP - General Internal Medicine 12/25/13 Farzad Sandhu MD [address] [place] [address] Cardiology 11/08/24 documented as of this encounter
--- OUTSIDE RECORDS SUMMARY | 2025-02-01 20:49 | XMS_ITS | Encounter Summary ---
Author Organization [employer] Address [address] [facility] 7[address] [place] [address] Care Team Providers Care Miner Pick Name Role Phone Lasha Marrufo MD Primary Care Provide r Farzad Sandhu MD Unavailable [phone] Reason for Visit * Reason Onset Date Comments Referral 10/21/2024 Encounter Details Date Type Department Care Team (Late st Contact Info) Description 10/21/2024 Telephone [facility] [address] [place], [place] [phone] Lasha Marrufo MD [address] [place] [address] Referral Social History Tobacco Use Types Packs/Day [...] [place] a [place] eye lasik in [place]. Any questions contact pt at [phone]. documented in this encounter Plan of Treatment Upcoming Encounters Date Type Department Care Team (Late st Contact Info) Description 02/18/2025 1:15 PM EST Office Visit [facility] [address] [place] [address] Lasha Marrufo MD [address] [place] [address] documented as of this encounter Goals Goal [...] documented as of this encounter Care Teams Miner Pick Relationship Specialty Start Date End Date Lasha Marrufo MD [address] [place] [phone] PCP - General Internal Medicine 12/25/13 Farzad Sandhu MD [address] [place] [address] Cardiology 11/08/24 documented as of this encounter
--- OUTSIDE RECORDS SUMMARY | 2025-02-01 20:49 | XMS_ITS | Encounter Summary ---
Author Organization [employer] Address [address] [place] [address] 7[address] [place] [address] Care Team Providers Care Cordwainer Name Role Phone Lasha Marrufo MD Primary Care Provide r Farzad Sandhu MD Unavailable [phone] Reason for Visit * Reason Comments Med Refill Encounter Details Date Type Department Care Team (Late st Contact Info) Description 04/04/2023 Refill [facility] [address] [place] [address] [phone] Lasha Marrufo MD [address] [place] [address] [phone] Social History Tobacco Use Types Packs/Day Years [...] Office Visit [facility] [address] [place] [address] [phone] Lasha Marrufo MD [address] [place] [address] [phone] documented as of this encounter Visit Diagnoses Not on filedocumented in this encounter Care Teams Cordwainer Relationship Specialty Start Date End Date Lasha Marrufo MD [address] [place] [address] PCP - General Internal Medicine 12/25/13 Farzad Sandhu MD [address] [place] [address] Cardiology 11/08/24 documented as of this encounter
--- OUTSIDE RECORDS SUMMARY | 2025-02-01 20:49 | XMS_ITS | Encounter Summary ---
Author Organization [employer] Address [address] [facility] [address] [place] [address] Care Team Providers Care Value Analysis Coordinator Name Role Phone Lasha Marrufo MD Primary Care Provide r Farzad Sandhu MD Unavailable [phone] Reason for Visit * Reason Comments Med Refill Encounter Details Date Type Department Care Team (Late st Contact Info) Description 01/27/2025 Refill [facility] [address] [place], [place] [phone] Lasha Marrufo MD [address] [place], [place] [phone] Smoker Social History Tobacco Use Types Packs/Day [...] 1:15 PM EST Office Visit [facility] [address] [place] [address] Lasha Marrufo MD [address] [place] [address] documented as of this encounter Goals Goal [...] documented as of this encounter Care Teams Value Analysis Coordinator Relationship Specialty Start Date End Date Lasha Marrufo MD [address] [place] [address] PCP - General Internal Medicine 12/25/13 Farzad Sandhu MD [address] [place] [address] Cardiology 11/08/24 documented as of this encounter
--- OUTSIDE RECORDS SUMMARY | 2025-02-01 20:49 | XMS_ITS | Encounter Summary ---
Author Organization [facility] Address [address] [facility] [address] [place] [phone] Phone Care Team Providers Care Office 365 Consultant Name Role Phone Pcp, Unknown Primary Care Provider Unavailabl e Encounter Details Date Type Department Care Team (Late st Contact Info) Description 08/29/2019 Ancillary Orders [facility] [address] [place] [address] Landy Rossi PA [address] [place] [phone] [email or web address] Social History Tobacco Use Types Packs/Day [...] Palpitations documented in this encounter Care Teams Office 365 Consultant Relationship Specialty Start Date End Date Pcp, Unknown PCP - General 08/29/19 documented as of this encounter Additional Source Comments The information contained in this document represents components of the legal health record. It is not the complete legal health record.[facility]
--- OUTSIDE RECORDS SUMMARY | 2025-02-01 20:49 | XMS_ITS | Encounter Summary ---
Author Organization [employer] Address [address] [facility] 7[address] [place] [address] Care Team Providers Care Heat Treating Operator Name Role Phone Lasha Marrufo MD Primary Care Provide r Farzad Sandhu MD Unavailable [phone] Encounter Details Date Type Department Care Team (Late st Contact Info) Description 04/06/2022 Orders Only [facility] [address] [place] [address] Eliz Adorno LPN Social History Tobacco Use [...] PM EST Office Visit [facility] [address] [place] [address] Lasha Marrufo MD [address] [place] [address] documented as of this encounter Visit Diagnoses Not on filedocumented in this encounter Care Teams Heat Treating Operator Relationship Specialty Start Date End Date aLsha Marrufo MD [address] [place], [place] [phone] PCP - General Internal Medicine 12/25/13 Farzad Sandhu MD [address] [place] [address] Cardiology 11/08/24 documented as of this encounter
--- OUTSIDE RECORDS SUMMARY | 2025-02-01 20:50 | XMS_ITS | Encounter Summary ---
Author Organization [employer] Address [address] [place] [address] 7[address] [place] [address] Care Team Providers Care Residential Property Consultant Name Role Phone Lasha Marrufo MD Primary Care Provide r Farzad Sandhu MD Unavailable [phone] Encounter Details Date Type Department Care Team (Late st Contact Info) Description 08/04/[address] [facility] [address] [place] [address] [phone] Lasha Marrufo MD [address] [place] [address] [phone] Social History Tobacco Use Types Packs/Day Years [...] Description 02/18/2025 1:15 PM EST Office Visit [facility] [address] [place], [place] [phone] Lasha Marrufo MD [address] [place], [place] [phone] documented as of this encounter Procedures Procedure Name Priority Date/Time Associated Diagnosis Comments MAMMOGRAPHY Routine 08/01/2022 COLONOSCOPY Routine 06/26/2019 documented in this encounter Results * (ABNORMAL) Mammography (08/01/2022) HM Mammogram Birads 0 Anatomical Region Laterality Modality Other 08/01/2022 Narrative 08/01/2022 2:10 PM EDT Birads 0- recommended additional imaging Historical Provider HEALTH MAINTENANCE Final Result * Colonoscopy (06/26/2019) Colonoscopy Normal Normal 06/26/2019 Narrative Irene uL - 06/26/2019 2:53 PM EDT Recommended 5 year follow up ( see scanned notes) us Historical Provider HEALTH MAINTENANCE Edited Result - Final documented in this encounter Visit Diagnoses Not on filedocumented in this encounter Care Teams Residential Property Consultant Relationship Specialty Start Date End Date Lasha Marrufo MD [address] [place] [address] PCP - General Internal Medicine 12/25/13 Farzad Sandhu MD [address] [place] [phone] Cardiology 11/08/24 documented as of this encounter
--- OUTSIDE RECORDS SUMMARY | 2025-02-01 20:50 | XMS_ITS | Clinical Summary ---
Author Organization [facility] Address [address] [place] [address] Phone Care Team Providers Care Company Marker Name Role Phone Lasha Castillo MD Primary [...] Encounters Date Type Department Care Team Description 01/29/2025 10:45 AM EDT Office Visit Orthopedic Surgery [facility] [address] [phone] Estevan Viramontes, DPM Controlled type 2 diabetes with neuropathy (CMS/HCC V24, CMS/HCC V28) (Primary Dx); Arthritis of both feet; Hammertoes of both feet; Dermatophytosis, nail; Ingrown left big toenail 11/27/2024 10:45 AM EDT Consult Orthopedic [facility] [address] [phone] Estevan Viramontes, DPM Controlled type 2 diabetes with neuropathy [...] AM EST Office Visit Orthopedic Surgery - [address] [phone] Estevan Viramontes, MIAH [address] [place] [phone] Health Maintenance Due Date Last Done Comments Breast Cancer Screening 1961 Colorectal Cancer Screening: Colonoscopy 1961 Diabetes: Annual Foot Exam 1971 Diabetes: Annual Retina Eye Exam 1971 RSV Immunization Adult Patients (1 - Risk 50-74 years 1-dose series) 2011 Zoster Vaccines (1 of 2) 2011 Pneumococcal Vaccine: 50+ Years (2 of 2 - PCV) 07/02/2015 07/01/2014 Social Influencers of Health Screening 04/28/2023 Depression Screening 04/03/2024 Diabetes: Annual Urine Albumin-Creatinine Ratio (uACR) 04/30/2024 COVID-19 Vaccine (3 - season) 2024 06/29/2020, 06/01/2020 Influenza Vaccine (#1) 2024 , 02/15/2022, 01/15/2020, Additional history exists Diabetes: Blood Sugar Control Test (HGBA1C) 06/09/2025 12/10/2024, 09/05/2024, 02/13/2024 Diabetes: Annual GFR (Glomerular Filtration [...] topic Insurance MEDICAID - [place] Care Teams Company Marker Relationship Specialty Start Date End Date Lasha Castillo MD [address] [place] [phone] PCP - General Internal Medicine 09/09/24
--- OUTSIDE RECORDS SUMMARY | 2025-02-01 20:50 | XMS_ITS | Encounter Summary ---
Author Organization [employer] Address [address] [place] [address] 7[address] [place] [address] Care Team Providers Care Taximeter Repairer Name Role Phone Lasha Marrufo MD Primary Care Provide r Farzad Sandhu MD Unavailable [phone] Encounter Details Date Type Department Care Team (Late st Contact Info) Description 05/03/2022 Orders Only [facility] [address] [place] [phone] Elsa Julien LPN Social History Tobacco Use [...] Description 02/18/2025 1:15 PM EST Office Visit [facility] [address] [place] [phone] Lasha Marrufo MD [address] [place] [phone] documented as of this encounter Visit Diagnoses Not on filedocumented in this encounter Care Teams Taximeter Repairer Relationship Specialty Start Date End Date Lasha Marrufo MD [address] [place] [address] PCP - General Internal Medicine 9/24/14 Farzad Sandhu MD [address] [place] [address] Cardiology 11/08/24 documented as of this encounter
--- OUTSIDE RECORDS SUMMARY | 2025-02-01 20:50 | XMS_ITS | Clinical Summary ---
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 Operator Name Role Phone Lasha Marrufo MD Primary Care Provide r Farzad Sandhu MD Unavailable Allergies Active Allergy Reactions Criticality Noted Date [...] 3 023 Active Blood Glucose Monitoring Suppl (DeNA Blood Glucose) w/Device kitIndications:T ype 2 diabetes [...] ATERIAL ES ALTO) Active TRUEplus Lancets 33G [facility] TEST BLOOD SUGAR TWICE DAILY Active magnesium [...] FOR MUSCLE SPASMS 30 tablet 025 Active metroNIDAZOLE (Metrogel) 0.75 % vaginal gel One applicatorful nightly x 5 nights 70 g 025 Active levothyroxine (Synthroid, Levoxyl) 75 MCG tabletIndication s:Acquired hypothyroidism Take 1 tablet (75 mcg) by mouth in the morning. 90 tablet 1 025 Active levothyroxine (Synthroid, Levoxyl) 75 MCG tabletIndication s:Acquired hypothyroidism Take 1 tablet (75 mcg) by mouth in the morning. 90 tablet 1 025 Active metFORMIN XR (Glucophage-XR) 500 MG 24 hr tablet TAKE 2 TABLETS BY MOUTH TWICE DAILY IN THE MORNING AND EVENING 360 tablet 1 025 Active Eliquis 5 MG tablet TAKE 1 TABLET BY MOUTH TWICE DAILY IN THE MORNING AND IN THE EVENING 60 tablet 2 025 Active DULoxetine (Cymbalta) [address] capsule TAKE 1 CAPSULE BY MOUTH EVERY MORNING 30 capsule 5 025 Active butalbital-aceta minophen-caffein e 50-325-40 MG tabletIndication s:Acute non intractable tension-type headache TAKE 1 TABLET BY MOUTH ONCE DAILY FOR HEADACHE. MAY REPEAT IN 12 HOURS NEEDED 20 tablet 025 Active Dulaglutide (Trulicity) 0.75 MG/0.5ML solution auto-injector Inject 0.75 mg under the skin 1 (one) time per week. 2 mL 1 025 Active montelukast (Singulair) 10 MG tabletIndication s:Mild intermittent asthma without complication TAKE 1 TABLET BY MOUTH EVERY EVENING 90 tablet 1 025 Active ipratropium-albu terol (Duo-Neb) 0.5-2.5 mg/3 mL nebulizer solution INHALE 1 AMPULE USING A NEBULIZER FOUR TIMES DAILY NEEDED FOR WHEEZING OR FOR COUGH 90 mL 3 025 Active varenicline (Chantix) 0.5 MG tabletIndication s:Smoker TAKE 1 TABLET BY MOUTH TWICE DAILY WITH A FULL GLASS OF WATER 60 tablet 1 025 Active DULoxetine (Cymbalta) [address] capsule TAKE 1 CAPSULE BY MOUTH EVERY MORNING 30 capsule 5 025 2024 Discontinued(R eorder (will not trigger notification to Pharmacy)) ipratropium-albu terol (Duo-Neb) 0.5-2.5 mg/3 mL nebulizer solution INHALE 1 AMPULE USING A NEBULIZER FOUR TIMES DAILY NEEDED FOR WHEEZING AND FOR COUGH 90 mL 3 2024 Discontinued montelukast (Singulair) 10 MG tabletIndication s:Mild intermittent asthma without complication TAKE 1 TABLET BY MOUTH EVERY EVENING 90 tablet 1 025 2024 Discontinued(D uplicate order (will not trigger notification to Pharmacy)) montelukast (Singulair) 10 MG tabletIndication s:Mild intermittent asthma without complication TAKE 1 TABLET BY MOUTH EVERY EVENING 90 tablet 1 025 2024 Discontinued(R eorder (will not trigger notification to Pharmacy)) apixaban (Eliquis) 5 MG tablet Take 1 tablet (5 mg) by mouth 2 times daily. 60 tablet 2 2024 Discontinued Trulicity 0.75 MG/0.5ML solution auto-injectorInd ications:Type 2 diabetes mellitus without complication, unspecified whether termite exterminator helper insulin use INJECT ONE PEN (=0.75MG) SUBCUTANEOUSLY ONCE A WEEK DIRECTED 2 mL 1 2024 Discontinued(R eorder (will not trigger notification to Pharmacy)) varenicline (Chantix) 0.5 MG tabletIndication s:Smoker Take 1 tablet (0.5 mg) by mouth 2 times daily. Take with full glass of water. 60 tablet 1 2024 Discontinued(R eorder (will not trigger notification to Pharmacy)) butalbital-aceta minophen-caffein e 50-325-40 MG tabletIndication s:Acute non intractable tension-type headache TAKE 1 TABLET BY MOUTH ONCE DAILY NEEDED FOR HEADACHE. MAY REPEAT IN 12 HOURS IF NEEDED 20 tablet 025 2024 Discontinued montelukast (Singulair) 10 MG tabletIndication s:Mild intermittent asthma without complication TAKE 1 TABLET BY MOUTH EVERY EVENING 90 tablet 1 2024 Discontinued(R eorder (will not trigger notification to Pharmacy)) Active Problems Problem Noted Date Diagnosed Date Atrial fibrillation ([facility]) 11/06/2024 Assessment & Plan (12/10/2024 1:23 PM EDT): Newly diagnosed Under the care of Cardiology last note 11/18/2024 On Eliquis Assessment & Plan (11/06/2024 6:47 PM EDT): Chadvasc 3 points Rate controlled, asymptomatic Start eliquis risk vs benefits discussed, told to discuss with gang punch operator if watchman is indicated Pelvic pain 09/05/2024 Assessment & Plan (12/10/2024 1:19 PM EDT): Patient with c/o pelvic pain and recurrent Bacterial vaginosis. Pt requesting to see a Sidehand Pelvic US 11/08/2024 was normal Seen by AFTER SCHOOL PROGRAM ASSISTANT 11/26/2024 Dr Ochoa, did not find anything specific Assessment & Plan (09/05/2024 2:34 PM EDT): Patient with c/o pelvic pain and recurrent Bacterial vaginosis. Pt requesting to see a Sidehand Plan: Obtain Pelvic US Referral to AFTER SCHOOL PROGRAM ASSISTANT Heart murmur 09/05/2024 Assessment & Plan (12/10/2024 [...] Smear: NL 09/2021 will need a repeat [id number] Colonoscopy: 06/2019 Dr Delgado, Tubular adenoma Vaccines: Td Pt claims she had one in [place] in 2013. Assessment & Plan (10/12/2023 11:21 AM EDT): Mammogram: 08/2023 Normal Pap Smear: NL 09/2021 will need a repeat [phone] Colonoscopy: 06/2019 Dr Delgado, Tubular adenoma Vaccines: Td Pt claims she had one in [place] in 2013. Assessment & Plan (07/18/2023 1:58 PM EDT): Mammogram: 04/12/2023 Normal Pap Smear: NL 09/2021 will need a repeat [id number] Colonoscopy: 06/2019 Dr Delgado, Tubular adenoma Vaccines: Flu shot Td Pt claims she had one in [place] in 2013. Abdominal wall hernia 07/18/2023 Assessment [...] 11:40 AM EST): Under the care of Waiter/Waitress First Class Unfortunately continues to smoke, not interested in [...] 0.75 q week Eye exam : 05/31/2024 [facility] Microalbumin ordered Pt on [...] 0.75 q week Eye exam : 05/31/2024 [facility] Microalbumin ordered Pt on [...] Encounters Date Type Department Care Team Description 01/27/[address] [facility] [address] [place] [address] Lasha Marrufo MD Smoker 01/25/2025 Refill [facility] [address] [place] [address] Lasha Marrufo MD Smoker 01/20/[address] [facility] [address] [place] [address] Lasha Marrufo MD Acute non intractable tension-type headache; Mild intermittent asthma without complication 01/20/[address] [facility] [address] [place] [address] Lasha aMrrufo MD Mild intermittent asthma without complication 01/20/2025 Refill [facility] [address] [place] [address] Eliz Jerome DO Type 2 diabetes mellitus without complications (HCC) 01/15/[address] [facility] [address] [place] [address] Humza Morfin MD 01/15/2025 Refill [facility] [address] [place] [address] Lasha Marrufo MD 12/30/2024 Orders Only [facility] External Provider, [facility] 12/22/[address] [facility] [address] [place] [address] Lasha Marrufo MD 12/12/2024 Refill [facility] [address] [facility] [place] [address] Joanne Jeffery ANP Acute non intractable tension-type headache 12/10/2024 1:15 PM EDT Office Visit [facility] [address] [place] [address] Lasha Marrufo MD Type 2 diabetes mellitus without complication, without long-term current use of insulin (CMS/HCC) (Primary Dx); Pelvic pain; Smoker; Longstanding persistent atrial fibrillation (CMS/HCC); Heart murmur; Preventative health care; Positive SANDEEP (antinuclear antibody) 12/10/2024 Travel 12/09/[address] [facility] [address] [place] [address] Lasha Marrufo MD chart prep 11/29/[address] [facility] [address] [facility] [place] [address] Lasha Marrufo MD Nurse Triage 11/25/[address] [facility] [address] [place] [address] Nancy Frye, [employer] Follow-up 11/20/[address] [facility] [place] [address] Lasha Marrufo MD Care Coordination 11/20/2024 Orders Only GENERIC EXTERNAL DATA DEPARTMENT Provider, Generic External Data 11/20/2024 Travel 11/19/[address] [facility] [address] [place] [address] Lasha Marrufo MD Results 11/19/[address] [facility] [address] [facility] [place] [address] Lasha Marrufo MD Nurse Triage 11/18/2024 Refill [facility] [address] [facility] [place] [address] Lasha Marrufo MD Type 2 diabetes mellitus without complication, unspecified whether termite exterminator helper insulin use ([facility]) 11/11/2024 Travel 11/08/2024 Results Follow-Up [facility] [address] [facility] [address] Nancy Frye, RN ECG 12 lead 11/06/2024 6:20 PM EDT Office Visit [facility] [address] [place] [address] Humza Morfin MD Longstanding persistent atrial fibrillation ([facility]) (Primary Dx) 11/06/2024 Travel 11/06/[address] [facility] [address] [place] [address] Nancy Frye RN Results 11/01/[address] [facility] [address] [place], [place] [phone] Lasha Marrufo MD Acute non intractable tension-type [...] Visit [facility] [address] [place] [address] Lasha Marrufo MD [address] [place] [address] Health Maintenance Due Date Last Done Comments [...] Procedure Name Priority Date/Time Associated Diagnosis Comments LDCT LUNG SCREENING Routine 01/01/2025 2 :48 PM EDT XR CHEST 2 VIEWS Routine 12/10/2024 2:29 PM EDT Smoker POCT GLYCATED HEMOGLOBIN, TOTAL Routine 12/10/2024 1:12 PM EDT Type 2 diabetes mellitus without complication, without long-term current use of insulin ([facility]) POCT GLUCOSE Routine 12/10/2024 1:11 [...] PM EDT Longstanding persistent atrial fibrillation (CMS/HCC) HIV 1/2 ANTIGEN/ANTIBODY, FOURTH GENERATION W/RFL Routine 10/23/2024 10:11 AM EDT Preventative health care LIPID PANEL, STANDARD Routine 10/23/2024 10:11 AM EDT Type 2 diabetes mellitus without complication, without long-term current use of insulin (CMS/HCC) Primary hypertension Hypertriglyceridemia HPV DNA, LOW/HIGH RISK Routine 10/03/2024 3:17 PM EDT PAP SMEAR Routine 10/03/2024 3:17 PM EDT BI MAMMOGRAM SCREENING TOMOSYNTHESIS BILATERAL [...] Recently Relevant to Health Maintenance Results * CT Lung Screening Low dose (01/01/2025 2:48 PM EDT) Anatomical Region Laterality Modality Lung Computed Tomogra phy 01/01/2025 2:48 PM EDT Narrative 01/01/2025 2:50 PM EDT [place] [address] [address] Scan Report Signed Patient: Arianna Pineda MR#: [id number] : 1960 Acct:[id number] Age/Sex: 64 / F ADM Date: 12/30/24 Loc: HO.CT Attending Dr: Katrina Velez PA-C Ordering Physician: Katrina Velez PA-C Date of Service: 12/30/24 Procedure(s): CT lung screening Accession Number(s): [id number] cc: Lasha Castillo MD; Katrina Velez PA-C Report Number: [id number]: Total DLP = 85.00 mGy-cm Reason for Exam: F17.210 - Nicotine dependence, cigarettes, uncomplicated CLINICAL HISTORY: F17.210 - Nicotine dependence, cigarettes, uncomplicated CT lung cancer screening (LDCT) Comparison: CT/IL/SR - CT LUNG SCREENING - 12/01/23 10:36 EDT Technique: Axial CT images of the chest using low-dose technique. Referring provider counseled the patient on shared decision-making for LDCT screening. Additional counseling was provided on smoking cessation. Effective radiation dose total: DLP 73.3 mGycm, CTDIvol 2 mGy. Findings: Lung: Stable 7 mm left lower lobe nodule on image 99. No new lung nodule. Foci of atelectasis are noted within the bilateral lower lungs. Coronary artery calcifications: Mild. Mild cardiomegaly with apparent interval increase in size since the prior study. Limited upper abdomen: Prior cholecystectomy Other: None IMPRESSION: Category 2: Benign findings. Recommend continued annual screening # #L2 ## This document has been electronically signed by: Ada Barrett MD on 01/01/2025 14:48:55 Dictated By: Ada Barrett MD Signed By: <Electronically signed by Ada Barrett MD in OV> 01/01/25 1450 DD/ 1448 TD/TT: 01/01/25 1448 Boiler Out: Procedure Note Donotuseinterpreter, Image - 01/01/[address] [address] [address] Scan Report Signed Patient: Arianna Pineda EMR#: [id number] : 1960cct:[id number] Age/Sex: 64 / FADM Date: 12/30/24 Loc: HO.CT Attending Dr: Katrina Velez PA-C Ordering Physician: Katrina Velez PA-C Date of Service: 12/30/24 Procedure(s): CT lung screening Accession Number(s): [id number] cc: Lasha Castillo MD; Katrina Velez PA-C Report Number: [id number]: Total DLP = 85.00 mGy-cm Reason for Exam: F17.210 - Nicotine dependence, cigarettes, uncomplicated CLINICAL HISTORY: F17.210 - Nicotine dependence, cigarettes, uncomplicated CT lung cancer screening (LDCT) Comparison: CT/IL/SR - CT LUNG SCREENING - 12/01/23 10:36 EDT Technique: Axial CT images of the chest using low-dose technique. Referring provider counseled the patient on shared decision-making for LDCT screening. Additional counseling was provided on smoking cessation. Effective radiation dose total: DLP 73.3 mGycm, CTDIvol 2 mGy. Findings: Lung: Stable 7 mm left lower lobe nodule on image 99. No new lung nodule. Foci of atelectasis are noted within the bilateral lower lungs. Coronary artery calcifications: Mild. Mild cardiomegaly with apparent interval increase in size since the prior study. Limited upper abdomen: Prior cholecystectomy Other: None IMPRESSION: Category 2: Benign findings. Recommend continued annual screening # #L2 ## This document has been electronically signed by: Ada Barrett MD on 01/01/2025 14:48:55 Dictated By: Ada Barrett MD Signed By: <Electronically signed by Ada Barrett MD in OV> 01/01/25 1450 DD/ 1448 TD/TT: 01/01/25 1448 Boiler Out: [facility] External Provider IMG CT PROCEDURES Final Result * XR Chest 2 Views (12/10/2024 2:29 PM EDT) Only the most recent of2 resultswithin the time period is included. Anatomical Region Laterality Modality Chest Radiographic Melody ging 12/10/2024 2:29 PM EDT Narrative 12/10/2024 2:41 PM EDT [facility] [address] [place] [address] XRay Report Signed Patient: Arianna Pineda MR#: [id number] : 1960 Acct:[id number] Age/Sex: 64 / F ADM Date: 12/10/24 Loc: HO.HHCX Attending Dr: Lasha Castillo MD Ordering Physician: Lasha Castillo MD Date of Service: 12/10/24 Procedure(s): XR chest 2V Accession Number(s): [id number] cc: Lasha Castillo MD Reason for Exam: [...] 12/10/24 1439 DD/ 1429 TD/TT: 12/10/24 1430 Boiler Out: Procedure Note Donotuseinterpreter, Image - 12/10/[address] [address] XRay Report Signed Patient: Arianna Pineda EMR#: [id number] : 1960cct:[id number] Age/Sex: 64 / FADM Date: 12/10/24 Loc: HO.HHCX Attending Dr: Lasha Castillo MD Ordering Physician: Lasha Castillo MD Date of Service: 12/10/24 Procedure(s): XR chest 2V Accession Number(s): [id number] cc: Lasha Castillo MD Reason for Exam: [...] Maxwell MD in OV> 12/10/24 1439 DD/ 142 TD/TT: 12/10/24 1430 Boiler Out: Lasha Jara MD IMG XR PROCEDURES Fin al Result * (ABNORMAL) POCT Hgb A1c (12/10/2024 1:12 PM EDT) Hemoglobin A1C 6.1(A) 4.0 - 5.7 % QC Media Lot # [id number] Lot# Expiration Date [id number] Blood 12/10/2024 1:12 PM EDT Lasha Jara MD POINT OF CARE TEST EN TER/EDIT ORDERABLES Final Result * POCT Glucose (12/10/2024 1:11 PM EDT) Pathologist [facility] Glucose Blood, POC 100 60 - 200 mg/dL QC Media Lot # [id number] Lot# Expiration Date [id number] Blood Capillary blood specimen / Unknown 12/10/2024 1:11 PM EDT Lasha Jara MD POINT OF CARE TEST EN TER/EDIT ORDERABLES Final Result * Strep A Nucleic Acid (11/20/2024 12:44 PM EDT) IDNOW SERIAL# [id number] [facility] Strep A Nucleic Acid Negative Negative [facility] Comment:All test results mus t [...] LAB MICROBIOLOGY - GENERAL ORDERABLES Final Result [facility] [address] [place] [phone] * SARS-CoV-2 RNA, Influenza A/B, and RSV RNA, Ql NAAT (11/20/2024 12:44 PM EDT) Influenza A PCR NEGATIVE Negative [facility] Influenza B PCR NEGATIVE Negative [facility] Resp Syncy Virus RNA Qual PCR NEGATIVE Negative [facility] SARS COV2 PCR NEGATIVE Negative [facility] Comment:All test results mus t be [...] use by authorized laboratories.Testing performed on the [employer]ise GeneXpert utilizingreal-time RT-PCR.All SARS CoV2 and positive influenza A/B results arereported to [facility]. 11/20/2024 12:4 4 PM EDT 11/20/2024 12:50 PM EDT [facility] External Data Provider LAB MICROBIOLOGY - GENERAL ORDERABLES Final Result [facility] [address] [place] [phone] * US Pelvis Transvaginal (11/08/2024 4:45 PM EDT) Anatomical Region Laterality Modality Pelvis Ultrasound 11/08/2024 4:45 PM EDT Narrative 11/08/2024 4:46 PM EDT [address] [address] Ultrasound Report Signed Patient: Arianna Pineda MR#: [id number] : 1960 Acct:[id number] Age/Sex: 64 / F ADM Date: 11/08/24 Loc: HO.US Attending Dr: Sanjay Ochoa MD Ordering Physician: Sanjay Ochoa MD Date of Service: 11/08/24 Procedure(s): US pelvic and transvaginal Accession Number(s): [id number] cc: Lasha Castillo MD; Sanjay Ochoa MD [...] Patterson MD in OV> 11/08/24 1646 DD/ 1645 TD/TT: 11/08/24 1645 Boiler Out: Procedure Note Donotuseinterpreter, Image - 11/08/2024 [place] [address] Ultrasound Report Signed Patient: Arianna Pineda EMR#: [id number] : 1960cct:[id number] Age/Sex: 64 / FADM Date: 11/08/24 Loc: HO.US Attending Dr: Sanjay Ochoa MD Ordering Physician: Sanjay Ochoa MD Date of Service: 11/08/24 Procedure(s): US pelvic and transvaginal Accession Number(s): [id number] cc: Lasha Castillo MD; Sanjay Ochoa MD [...] OV> 11/08/24 164 DD/ 44 TD/TT: 11/08/241644 Boiler Out: [facility] External Provider IMG US PROCEDURES Final Result * ECG 12 lead (11/06/2024 6:48 PM EDT) Narrative Humza Morfin MD - 11/06/2024 6:48 PM EDT Atrial fibrillation Heat rate 80 Qtc 471 Humza Loza MD ECG ORDERABLES Fi nal Result * HIV-1/2 Antigen and Antibodies, Fourth Generation, with Reflexes (10/23/2024 10:11 AM EDT) [facility] HIV AB/AG Nonreactive Nonreactive [facility] Comment:HIV-1 p24 Ag and/or HIV-1/HIV-2 Ab not detected.A test result that is nonreactive does not exclude thepossibility of exposure to or infection with HIV-1 and/orHIV-2. Nonreactive results in this assay for individualswith prior exposure to HIV-1 and/or HIV-2 may be due toantigen and antibody levels that are below the limit ofdetection of this assay.The [employer] HIV Ag/Ab Combo assay result andsupplemental assay results should be interpreted inconjunction with the patient's clinical presentation,history and other laboratory results. If the results areinconsistent with clinical evidence, additional testing issuggested to confirm the result. Blood Venous blood specimen / Unknown 10/23/2024 10:11 AM EDT 10/23/2024 10:11 AM EDT Lasha Jara MD LAB BLOOD ORDERABLES Final Result Performing Organization Address City/[facility]/ZIP Co de Phone Number [facility] [address] [place] [address] [phone] * (ABNORMAL) Lipid Panel, Standard (10/23/2024 10:11 AM EDT) Triglycerides 147 <150 mg/dL [facility] Comment:Desirable Triglyceri de: less than 150 mg/dLBorderline High Triglyceride 150-199 mg/dLHigh Triglyceride: 200-499 mg/dLVery High Triglyceride: greater than or equal to 5OO mg/dL Cholesterol 116 <200 mg/dL [facility] Comment:Desirable Cholestero l: less than 200 mg/dLBorderline High Cholesterol: 200-239 mg/dLHigh Cholesterol: greater than 239 mg/dL LDL Cholesterol Calculated 54 <100 mg/dL [facility] Comment:Desirable LDL: less than 100 mg/dLNear Optimal/Above Optimal LDL: 110- 129 mg/dLBorderline High LDL: 130-159 mg/dLHigh LDL: 160-189 mg/dLVery High LDL: greater than or equal to 190 mg/dL HDL Cholesterol 33(L) >40 mg/dL [facility] Comment:Desirable HDL: great er than 40 mg/dL Note: This HDL assay may give artificially low results in patients with liver disease. Blood Venous blood specimen / Unknown 10/23/2024 10:11 AM EDT 10/23/2024 10:11 AM EDT Lasha Jara MD LAB BLOOD ORDERABLES Final Result Performing Organization Address City/[facility]/ZIP Co de Phone Number [facility] [address] [place] [phone] [phone] * HPV DNA, Low/High Risk (10/03/2024 3:17 PM EDT) HPV High Risk Negative Negative [facility] HPV Genotype 16 Negative Negative [facility] HPV Genotype 18 Negative Negative [facility] Comment:HPV testing performe d at [facility] (CLIA#[id number]), [address] [place] [phone].Testing for HPV was performed using the Marcella [...] Provider LAB BLOOD ORDERAB LES Final Result [facility] [address] [place] [phone] * Pap Smear (10/03/2024 3:17 PM EDT) 10/03/2024 3:17 PM EDT 10/07/2024 7:55 AM EDT Narrative [facility] - 10/09/2024 1:36 PM EDT ----- ------- Name: Arianna Pineda Age/Sex: 64/F : 1960 Unit#: [id number] Attend Dr: Sanjay Ochoa MD Re10/03/24 Status: [facility] Disch: ----- ------- SPEC : [id number] RECD: 10/07/24 STATUS: NUNO BARRETO NUM: [id number] COURTNEY: 10/03/[address] [facility] [address]: Sanjay Ochoa MD ENTERED: 10/07/24 [...] and HPV testing will be performed at [facility] (CLIA #[id number]), [address] [place] [address]. Testing for HPV was performed using the [...] detected. All professional services are performed by [facility] ([address] [place] [address], [place] [address]; ; CLIA #[id number]). The PAP Test is a screening procedure with the inherent possibility of both false negative and false positive results. Results should be interpreted in the context of historic and current clinical findings. Reliability of the PAP Test is enhanced by performing the test on a regular repetitive basis. CONTINUED ON NEXT PAGE ----- ------- Name: Arianna Pineda Age/Sex: 64/F : 1960 Unit#: [id number] Attend Dr: Sanjay Ochoa MD Re10/03/24 Status: [facility] REF Location: [facility] Disch: ----- ------- SPEC : [id number] RECD: 10/07/24 STATUS: NUNO BARRETO NUM: [id number] COURTNEY: 10/03/[address] [facility] [address]: Sanjay Ochoa MD ENTERED: 10/07/24 SP TYPE: Pap Smr OT DR: Lasha Castillo MD ORDERED: Pap Smear Copies To: Lasha Castillo MD [address] [phone] Sanjay Ochoa MD [facility] [place] [facility] [address] [place] [address] [address] [place] [address] [phone] ----- ------- Signed (signature on file) Bailee Amarilys CT ([facility]) 10/09/24 1336 ----- ------- END OF REPORT us Generic External Data Provider LAB CYTOLOGY AJ WALTERS Final Result Performing Organization Address City/State/[facility] Co de Phone Number [facility] [address] [place] [phone] * BI Mammogram Screening Tomosynthesis Bilateral (08/29/2024 10:50 AM EDT) Anatomical Region Laterality Modality Breast Bilateral Mammography 08/29/2024 10:5 0 AM EDT Narrative 09/06/2024 4:28 PM EDT [facility] [address] [place] [address] Mammography Report Signed Patient: Arianna Pineda MR#: [id number] : 1960 Acct:[id number] Age/Sex: 64 / F ADM Date: 08/29/24 Loc: FAIZA Attending Dr: Lasha Castillo MD Ordering Physician: Lasha Castillo MD Resu lts: 2Benign Findings Date of Service: 08/29/24 Follow Up: 1 Year From Orig inal Mammogram Procedure(s): MM tomosynthesis screening BI Accession Number(s): [id number] cc: Lasha Castillo MD EXAMINATION: MM SCREENING [...] 09/06/24 1625 DD/ 1050 TD/TT: 08/29/24 1120 Boiler Out: Procedure Note Donotuseinterpreter, Image - 09/06/2024 [facility] [address] [place] [address] Mammography Report Signed Patient: Arianna Pineda EMR#: [id number] : 1960cct:[id number] Age/Sex: 64 / FADM Date: 08/29/24 Loc: HO.FUNMILAYOO Attending Dr: Lasha Castillo MD Ordering Physician: Lasha Castillo MDResu lts: 2Benign Findings Date of Service: 08/29/24Follow Up: 1 Year From Orig inal Mammogram Procedure(s): MM tomosynthesis screening BI Accession Number(s): [id number] cc: Lasha Castillo MD EXAMINATION: MM SCREENING [...] 09/06/24 1625 DD/ 1050 TD/TT: 08/29/24 1120 Boiler Out: Lasha Jraa MD IMG BI PROCEDURES Fin al Result * Albumin, Random Urine W/Creatinine (06/29/2022 12:01 PM EDT) Creatinine, Random Urine 112 20 - 275 mg/dL [place] Albumin, Urine 2.0 See Note: mg/dL [facility] Comment: Reference Range: Reference Range Not established Albumin/Creatinin e Ratio, Random Urine 18 <30 mcg/mg creat [facility] Comment: The ADA defines abnormalities in albumin [...] 06/30/2022 5:17 PM EDT SPLIT 06/29/2022 FROM [id number] Lasha Jara MD LAB URINE ORDERABLES Final Result Performing Organization Address [facility] Co de Phone Number [facility] [address] [place] [address], [place] [address] [email or web address] [place] [facility] [address] [place] [phone] * Hepatitis C Antibody with Reflex to HCV, RNA, Quantitative, Real-Time PCR (06/29/2022 9:03 AM EDT) Hepatitis C Antibody NON-REACT BROCK NON-REACT BROCK [email or web address] [place] [facility] Index 0.07 <1.00 [email or web address] [place] [facility] Comment: HCV antibody was non-reactive. There is no laboratory evidence of HCV infection. In most cases, no further action is required. However, if recent HCV exposure is suspected, a test for HCV RNA (test code 06706) is suggested. For additional information please refer to http://education.RoboEd/faq/SJX20v5 (This link is being provided for informational/ educational purposes only.) 06/29/2022 9:03 AM EDT 06/29/2022 9:04 AM EDT Narrative [facility] - 06/29/2022 10:21 PM EDT FASTING:NO PATIENT UNABLE TO VOID; ADVISED TO RETURN FOR COLLECTION. FASTING: NO Lasha Jara MD LAB BLOOD ORDERABLES Final Result Performing Organization Address City/[facility]/ZIP Co de Phone Number [address], [facility] [place] [address] [email or web address] [place] [facility] [address] [place] [phone] * Hm Colonoscopy (06/26/2019) Colonoscopy Normal Normal 06/26/2019 Irene Zavala - 06/26/2019 2:53 PM EDT Recommended 5 year follow up ( see scanned notes) us Historical Provider HEALTH MAINTENANCE Edited Result - Final from Last 3 Months or Most Recently Relevant to Health Maintenance [place] [address] [place] [address] C[facility] MEDICAID STAND ADULT Care Teams Sawmill Moulder Operator Relationship Specialty Start Date End Date Lasha Marrufo MD [address] [place] [address] PCP - General Internal Medicine 12/25/13 Farzad Sandhu MD [address] [place] [address] Cardiology 11/08/24
--- OUTSIDE RECORDS SUMMARY | 2025-02-01 20:50 | XMS_ITS | Encounter Summary ---
Author Organization [employer] Address [address] [facility] [address] [place] [address] Care Team Providers Care Shake Maker Name Role Phone Lasha Marrufo MD Primary Care Provide r Farzad Sandhu MD Unavailable [phone] Encounter Details Date Type Department Care Team ([facility] st Contact Info) Description 02/19/[address] [facility] MEDICINE [address] [place], [place] [phone] Lasha Marrufo MD [address] [place] [address] Social History Tobacco Use Types Packs/Day Years [...] 1:15 PM EST Office Visit [facility] MEDICINE [address] [place] [address] Lasha Marrufo MD [address] [place] [address] documented as of this encounter Goals Goal [...] documented as of this encounter Care Teams Shake Maker Relationship Specialty Start Date End Date Lasha Marrufo MD [address] [place] [address] PCP - General Internal Medicine 12/25/13 Farzad Sandhu MD [address] [place] [address] Cardiology 11/08/24 documented as of this encounter
--- OUTSIDE RECORDS SUMMARY | 2025-02-01 20:50 | XMS_ITS | Encounter Summary ---
Author Organization [employer] Address [address] [place] [address] 7[address] [place] [address] Care Team Providers Care Ice Puller Name Role Phone Lasha Marrufo MD Primary Care Provide r Farzad Sandhu MD Unavailable [phone] Encounter Details Date Type Department Care Team (Late st Contact Info) Description 06/30/2022 Orders Only [facility] MEDICINE [address] [place] [phone] Elsa Julien LPN Social History Tobacco Use [...] 1:15 PM EST Office Visit [facility] MEDICINE [address] [place], [place] [phone] Lasha Marrufo MD [address] [place] [address] documented as of this encounter Visit Diagnoses Not on filedocumented in this encounter Care Teams Ice Puller Relationship Specialty Start Date End Date Lasha Marrufo MD [address] [place] [address] PCP - General Internal Medicine 12/25/13 Farzad Sandhu MD [address] [place] [address] Cardiology 11/08/24 documented as of this encounter
[2025-02-01 21:02] LABS: Alanine Aminotransferase 20 U/L (0-31); Albumin Level 4.2 g/dL (3.5-5.0); Alkaline Phosphatase 126 U/L (39-117); Anion Gap 10 (12-20); Aspartate Amino Transferase 21 U/L (5-31); Blood Urea Nitrogen 11 mg/dL (9-16); Calcium 9.2 mg/dL (8.4-10.2); Carbon Dioxide 29 mmol/L (22-29); Chloride 106 mmol/L (96-108); Creatinine Clr Calc Pharmacy 111.4; Estimated Glomerular Filt Rate > 60; Lipase 28 U/L (8-78); Magnesium 2.0 mg/dL (1.6-2.6); Potassium 3.5 mmol/L (3.3-5.1); Sodium 141 mmol/L (135-145); Total Protein 7.6 g/dL (6.5-8.0)
[2025-02-02 00:54] VITALS: BP 127/67; PULSE 83; RESP 18; TEMP 36.8; O2SAT 97
== END 2025-02-02 00:55 | disposition home or self-care (01) ==
PROVIDERS: Physician Assistant; Emergency Provider Emergency Medicine; PCP Internal Medicine
DX: M51.369 Other intervertebral disc degeneration, lumbar region without mention of lumbar back pain or lower extremity pain (principal); M54.41 Lumbago with sciatica, right side; I10 Essential (primary) hypertension; F17.210 Nicotine dependence, cigarettes, uncomplicated; Z79.899 Other long term (current) drug therapy
CPT/HCPCS: 36415; 72100; 80048; 80076; 83690; 83735; 85025; 96372; 99283; 99284; J1885

== ENCOUNTER → 2025-02-01 21:42 | Outpatient (BNV) | payer MEDICAID, SELFPAY | PROVIDERS: Emergency Provider Emergency Medicine; PCP Internal Medicine; Visit Provider Radiology Diagnostic Radiology | DX: M51.360 Other intervertebral disc degeneration, lumbar region with discogenic back pain only (principal); M85.88 Other specified disorders of bone density and structure, other site | CPT/HCPCS: 72100 ==

== ENCOUNTER 2025-02-11 15:12 | Outpatient (AMB) | payer MEDICAID, SELFPAY ==
--- OUTSIDE RECORDS SUMMARY | 2023-10-19 09:55 | XMS_ITS ---
Author Organization [facility] Address [address] [place] [phone] Care Team Providers Care Neuropsychologist Name Role Phone Mirella Jara MD, Lasha Primary Care Provide r Medardo Ortega Jr [phone] Encounters Encounter Location Date Provider Diagnosis [facility] [address] [facility] [address] [place] [phone] 10/19/2023 Medardo Delgado Jr Plan Of Treatment Next Appt Details Provider Name:Medardo vallecillo Jr, 08/14/2025 03:35:00 PM, [address] [facility], [address], [place], [address], Progress Notes * WATERSBRIANSETHOB:03/23/19 62 (64 yo F)Acc No.[id number]:10/19/2023 Progress Notes Patient: YUAN TORRES Provider: Josh Delgado MD :1960 A ge:63 Y S ex:Female Date:10/19/2023 Address:[address] [place] [address] [place] Pcp:Lasha holcomb MD Subjective: * Chief Complaints: * * Medical History: Objective: * Vitals: Assessment: Plan: * Treatment: * * The named appointment provid er may or may not be the originator of this progress note, and it is not deemed complete until electronically signed by the appointment provider. Sign off status: Pending * Provider: Josh Delgado MD Date: 0 10/19/2023 Generated for Deb kay/Hunter/Rama on: 1 04/13/2024 04:56 PM EST
--- OUTSIDE RECORDS SUMMARY | 2024-04-02 05:20 | XMS_ITS ---
Author Organization [facility] Address [address] [place] [address] [place] [phone] Care Team Providers Care Drywall Metal Stud Worker Name Role Phone Mirella Jara MD, Lasha Primary Care Provide r Medardo Ortega Jr REASON FOR VISIT abn ugi series Encounters Encounter Location Date Provider Diagnosis [facility] [place] [address] [place] [id number] 04/02/2024 Medardo Delgado Jr Abnormal UGI series R93.3 Assessments Encounter Date Diagnosis (ICD Code) Assessment Notes Treatment Notes Treatment Clinical Notes Section Notes 04/02/2024 Abnormal UGI series (ICD-10 - R93.3) Plan Of Treatment Next Appt Details Provider Name:Medardo vallecillo Jr, 08/14/2025 03:35:00 PM, [address] [place] [address], Suite [facility], [place], [address], Progress Notes * FRANTZ WATERSOB:[birth year] (64 yo F)Acc No.[id number]:04/02/2024 EGD/MAC Patient: Ajit QUINONESMARIFER YUAN Provider: Josh Delgado MD :1960 A ge:64 Y S ex:Female Date:04/02/2024 Address:[address] [place], [place] [phone] Pcp:Lasha holcomb MD Subjective: * Chief Complaints: * 1 . Abn ugi series. * Medical History: Objective: * Vitals: Assessment: * Assessment: 1. A bnormal UGI series - R93.3 (Primary) Plan: * Treatment: * Procedure Codes: 4 3239 UPPER GI ENDOSCOPY, BIOPSY * * The named appointment provid er may or may not be the originator of this progress note, and it is not deemed complete until electronically signed by the appointment provider. Sign off status: Pending * Provider: Josh Delgado MD Date: Generated for Deb kay/Hunter/Jorgeransmitting on: 04/13/2024 04:57 PM EST
[2025-02-11 15:41] VITALS: BP 110/62; PULSE 75; O2SAT 94; BMI 36.6
--- NOTE | 2025-02-11 15:41 | A.OFFVIS_ITS ---
Vital Signs 02/11/25 15:41 Height 5 ft 6 in Weight 227 lb BMI 36.6 BP 110/62 Blood Pressure Location Lt brachial Position Sitting Pulse 75 Pulse Source Pulse Oximeter Pulse Oximetry (%) 94 Oxygen Delivery Method Room Air Intake Visit Reasons: asthma Intake Note: pt is here for jorge/asthma follow up and states short of breath on exertion, using cpap nightly , pt is down to 3 cigs a day from 10 Drop Hammer Pile Driver Operator Required: Yes Drop Hammer Pile Driver Operator Services: Drop Hammer Pile Driver Operator Present Drop Hammer Pile Driver Operator Name: Eliz Lemus RMA Allergies codeine (CODEINE) Allergy (Intermediate, Verified 02/11/25 15:58) LOWERED PLATELETS atorvastatin Allergy (Mild, Verified 02/11/25 15:58) Headache amlodipine Allergy (Unknown, Verified 02/11/25 15:58) Unknown clonidine Allergy (Unknown, Verified 02/11/25 15:58) Unknown shellfish derived (shellfish) Allergy (Unknown, Verified 02/11/25 15:58) Unknown pseudoephedrine (From Sudafed) Allergy (Verified 02/11/25 15:58) Unknown Medication List - Last Reconciled 02/11/25 by Lily Ivan MD acetaminophen ER (Mapap Arthritis Pain) 650 mg PO Q8H PRN albuterol sulfate 90 mcg/actuation (Ventolin HFA) 2 puffs inhalation Q4-6H PRN aspirin 81 mg PO DAILY iqfrywwpyx-rqjptadrkudjw-ruyb 50-325-40 mg 1 cap PO Q4-6H PRN celecoxib 200 mg PO BID cyclobenzaprine 10 mg PO TID dicyclomine 20 mg PO BID docusate sodium 100 mg PO BID dulaglutide (Trulicity) 0.75 mg subcut QWEEK duloxetine 60 mg PO QAM famotidine 40 mg PO DAILY fluticasone propion-salmeterol 115-21 mcg/actuation (Advair HFA) 2 puffs PO BID fluticasone propionate 50 mcg/actuation (Flonase Allergy Relief) 1 spray intranasal DAILY furosemide 20 mg PO BID hydralazine 50 mg PO TID hydrocortisone 2.5% (Procto-Med HC) 1 appl topical BID ipratropium-albuterol 0.5 mg-3 mg(2.5 mg base)/3 mL mL inhalation QID PRN ketorolac 10 mg PO Q6H PRN levothyroxine (Synthroid) 75 mcg PO DAILY losartan 100 mg PO DAILY metformin ER 1,000 mg PO BID methocarbamol 750 mg PO Q8H PRN metoprolol succinate ER 100 mg PO DAILY montelukast (Singulair) 10 mg PO BEDTIME nitroglycerin (Nitrostat) 0.4 mg sublingual Q5M PRN polyethylene glycol 3350 (Miralax) 17 grams PO DAILY rosuvastatin (Crestor) 40 mg PO DAILY topiramate 50 mg PO BID verapamil ER 300 mg PO BEDTIME [Walker with seat As directed] Do you need a note to return to daycare/school/sports/work: No HPI HPI asthma: Details: Arianna is coming for follow-up after 1 year. In the interim. She has been using CPAP regularly and sleeping well. She has not been able to lose any weight. Her breathing is somewhat worse than before, as she described that she gets short of breath on walking only a small distance. She has chronic allergic rhinitis but is not very active at present. Cough is minimal and she does not expectorate much. He has longstanding obstructive sleep apnea which is being treated with CPAP and she is very very compliant. She has been a lifelong smoker has try to cut down and currently smoking 3 cigarettes a day. [facility] Medical History History of myocardial infarction Nicotine dependence, cigarettes, uncomplicated Asthma with COPD Cough Breast calcification, left Obesity (BMI 30-39.9) Breast mass, right Venous insufficiency Elevated cholesterol CAD (coronary artery disease) GERD (gastroesophageal reflux disease) Arthritis Hypothyroid HTN (hypertension) Asthma Allergic rhinitis JORGE on CPAP Surgical History History of esophagogastroduodenoscopy (EGD) Hx of arthroscopic knee surgery History of total right knee replacement (10/19/17) H/O colonoscopy Family History Father Prostate cancer Diabetes Alzheimer dementia HTN (hypertension) Mother Aneurysm Daughter Diabetes Social History Household Members: None Housing: House Alcohol intake: former Patient Tobacco Use Status: Current everyday Tobacco user Tobacco use type: Cigarette Cigarette Packs Per Day: 0.5 Cigarettes Per Day: 3 Years Smoked: (onset 15yo, x 48yrs, max 2ppd - now 1/2-3/4ppd - 50pyh) Current occupational status: disabled 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 Sexual orientation: Straight/Heterosexual Gender identity: Female Female Reproductive History Menstrual Age of Menarche: 10 Review of Systems Const All systems reviewed & are unremarkable except as noted in HPI and below Eyes Reports no additional complaints ENT Reports nasal congestion (Mild off and on) Card Denies chest pain, Denies irregular heart rhythm and Denies leg edema Resp Reports as per HPI (Has increased cough, nasal congestion and slightly more short of breath ) GI Reports no additional complaints Reports no additional complaints Musc Reports back pain and Reports arthralgias Skin/Breast Reports system reviewed and no additional complaints, except as documented Neuro Reports no additional complaints Psych Reports no additional complaints Endo Reports no additional complaints Physical Exam Vital Signs: Last Vital Signs Pulse 75 02/11/25 15:41 BP 110/62 02/11/25 15:41 Pulse Ox 94 02/11/25 15:41 Oxygen Delivery Method Room Air 02/11/25 15:41 BMI result Body Mass Index 36.6 Const Other: Grossly overweight with round face General: comfortable, no acute distress, alert and awake Orientation/consciousness: patient oriented x3 HEENT Head: Yes normal to inspection General nose exam: No nasal polyps present and No nasal discharge present Face and sinus: Yes sinuses nontender Mouth: oropharynx normal Throat: Yes posterior oropharynx normal Eyes General: appearance normal, both eyes and all related structures Neck Neck: Yes normal visual inspection, Yes no lymphadenopathy, Yes trachea midline and Yes no JVD Thyroid: Thyroid normal Chest Chest palpation & inspection: normal inspection of the chest, normal palpation of entire chest wall and no tenderness Resp Other: Percussion note not perceptible because of the thick chest wall. She does have good and equal breath sounds on both sides but decreased over the basilar areas. No wheezes rhonchi or crepitations are heard. Cardio Palpation: PMI not normal (Not palpable) Rate: regular rate Rhythm: regular rhythm Heart sounds: no gallops and no murmurs GI Palpation (GI): Soft to palpation, nontender, No hepatosplenomegaly present, no masses and Other GI palpation findings present (Abdomen is moderately obese and protuberant) Auscultation: normal bowel sounds Back/Spine/Pelvis Thoracic/Lumbar Spine: thoracic and lumbar spine normal to inspection and thoraco-lumbar ROM limited Skin General skin exam: no rashes or lesions noted Neuro General: patient oriented x3 and no focal motor deficits Cranial nerves: Yes CN's II-XII intact bilaterally Extrem General: Yes normal to inspection, No no joint enlargement (Both knees enlarged and slightly tender, especially the left knee), Yes no clubbing, cyanosis or edema and Yes no calf tenderness Psych Appearance: grossly normal and well kempt Speech and movement: Normal speech and movement present Office Procedures Spirometry Testing Spirometry Comments: spirometry done 98321- Spirometry Results Reviewed Results Reviewed: SPIROMETRY FVC= 63 % FEV1=56 % FEF 25-75 = 35 % : COMPARED TO FLOW VOLUMES IN 2020 ,THERE IS SIGNIFICANT DECLINE . COMPLIANCE REPORT : SHOWS GOOD COMPLIANCE Assessment & Plan Assessment & Plan (1) Asthma with COPD: Comment: Chronic bronchial Asthma/elements of COPD/restrictive component due to morbid obesity - well controlled, but intermittent cough due to smoking) Spirometry compared to spirometry in 2020 shows there is significant decline in the numbers. Code(s): J44.89 - Other specified chronic obstructive pulmonary disease Category: Medical Plan: Explained to the patient that there is a gradual decline in the flow volumes, this is due to continued smoking. She needs. To quit smoking completely Continue Advair HFA 115-212 puffs b.i.d. I will add a Lama agent ( Incruse ) when inhalation daily. Has nebulizer at home and use ipratropium-albuterol solution in the nebulizer Q 4-6 hours prn. (2) Allergic rhinitis: Comment: Mild/controlled. With intermittent flare-ups. Code(s): J30.9 - Allergic rhinitis, unspecified Category: Medical Plan: Continue montelukast 10 mg daily Use Flonase-52 sprays in each nostril daily (3) Nicotine dependence, cigarettes, uncomplicated: Comment: (onset 15yo, x 48yrs, max 2ppd - now 1/2-3/4ppd - 50pyh) now down to 3 cigarettes a day. Code(s): F17.210 - Nicotine dependence, cigarettes, uncomplicated Category: Medical Plan: Counseled to see if she can stop smoking completely. Continue to participate in annual lung screening program. Orders: Orders AMB Spirometry Testing 02/11/25 J44.89 - Other specified chronic obstructive pulmonary disease Coding Level of Care Code Est Pt Level 3 (41590) Diagnoses Asthma with COPD J44.89 Allergic rhinitis J30.9 Nicotine dependence, cigarettes, uncomplicated F17.210 CPT Codes Spirometry - CPT: 69132- Spirometry ([id number])
--- OUTSIDE RECORDS SUMMARY | 2025-02-11 16:57 | XMS_ITS | Encounter Summary ---
Author Organization [employer] Address [address] [facility] [address] [place] [address] Care Team Providers Care Supervisor Post Wave Name Role Phone Lasha Marrufo MD Primary Care Provide r Farzad Sandhu MD Unavailable [phone] Reason for Visit * Reason Onset Date Comments tooth fell off partial again 11/21/2023 Encounter Details Date Type Department Care Team (Late st Contact Info) Description 11/21/2023 Telephone [facility] ADULT DENTAL [address] [place] [address] Jeanne Arreola, DDS [address] [place], [place] [phone] tooth fell off partial again Social History [...] Description 02/18/2025 1:15 PM EST Office Visit [facility] MEDICINE [address] [place] [address] Lasha Marrufo MD [address] [place] [address] documented as of this encounter Goals Goal [...] as of this encounter Care Teams Supervisor Post Wave Relationship Specialty Start Date End Date Lasha Marrufo MD [address] [place] [address] PCP - General Internal Medicine 12/25/13 Farzad Sandhu MD [address] [place] [address] Cardiology 11/08/24 documented as of this encounter
--- OUTSIDE RECORDS SUMMARY | 2025-02-11 16:57 | XMS_ITS | Encounter Summary ---
Author Organization [employer] Address [address] [place] [address] [address] [place] [address] Care Team Providers Care Veneer Trimmer Name Role Phone Lasha Marrufo MD Primary Care Provide r Farzad Sandhu MD Unavailable [phone] Encounter Details Date Type Department Care Team (Late st Contact Info) Description 08/22/2022 Abstract [facility] MEDICINE [address] [place] [address] [phone] Lasha Marrufo MD [address] [place] [address] [phone] Social History Tobacco Use Types Packs/Day Years [...] Description 02/18/2025 1:15 PM EST Office Visit [facility] MEDICINE [address] [place], [place] [phone] Lasha Marrufo MD [address] [place], [place] [phone] documented as of this encounter Procedures Procedure [...] on filedocumented in this encounter Care Teams Veneer Trimmer Relationship Specialty Start Date End Date Lasha Marrufo MD [address] [place] [address] PCP - General Internal Medicine 12/25/13 Farzad Sandhu MD [address] [place] [address] Cardiology 11/08/24 documented as of this encounter
--- OUTSIDE RECORDS SUMMARY | 2025-02-11 16:57 | XMS_ITS | Encounter Summary ---
Author Organization [employer] Address [address] [place] [address] [address] [place] [address] Care Team Providers Care Hat Ironer Name Role Phone Lasha Marrufo MD Primary Care Provide r Farzad Sandhu MD Unavailable [phone] Encounter Details Date Type Department Care Team (Late st Contact Info) Description 05/03/2022 Orders Only [facility] MEDICINE [address] [place] [phone] Elsa Julien LPN Social History Tobacco Use [...] Description 02/18/2025 1:15 PM EST Office Visit [facility] MEDICINE [address] [place] [address] Lasha Marrufo MD [address] [place] [phone] documented as of this encounter Visit Diagnoses Not on filedocumented in this encounter Care Teams Hat Ironer Relationship Specialty Start Date End Date Lasha Marrufo MD [address] [place] [address] PCP - General Internal Medicine 9/24/14 Farzad Sandhu MD [address] [place] [address] Cardiology 11/08/24 documented as of this encounter
--- OUTSIDE RECORDS SUMMARY | 2025-02-11 16:57 | XMS_ITS | Encounter Summary ---
Author Organization [employer] Address [address] [facility] [address] [place] [address] Care Team Providers Care Property Assistant Name Role Phone Lasha Marrufo MD Primary Care Provide r Farzad Sandhu MD Unavailable [phone] Reason for Visit * Reason Comments Med Refill Encounter Details Date Type Department Care Team (Late st Contact Info) Description 10/27/2024 Refill [facility] [address] [place], [place] [phone] Lasha Marrufo MD [address] [place], [place] [phone] Acquired hypothyroidism; Mild intermittent asthma without complication [...] Description 02/18/2025 1:15 PM EST Office Visit [facility] MEDICINE [address] [place] [address] Lasha Marrufo MD [address] [place] [address] documented as of this encounter Goals Goal [...] documented as of this encounter Care Teams Property Assistant Relationship Specialty Start Date End Date Lasha Marrufo MD [address] [place] [address] PCP - General Internal Medicine 12/25/13 Farzad Sandhu MD [address] [place] [address] Cardiology 11/08/24 documented as of this encounter
--- OUTSIDE RECORDS SUMMARY | 2025-02-11 16:57 | XMS_ITS | Patient Health Record ---
Author Organization [facility] Address [address] [place] [address] Care Team Providers Care Labor Relations Director Name Role Phone Mirella Jara MD, Lasha Primary Care Provide Medardo Thornton Jr Unavailable Allergies Allergen (clinical drug ingredient) Drug/Non Drug Allergy documented on EMR Reaction Allergy Type Onset Date Status codeine Codeine Sulfate Unknown Drug Allergy A ctive Results Component Value Reference Range Notes Complete Blood Count no Diff Reviewed date:04/02/2024 02:01:30 PM Interpretation: Performing Lab:[facility], [address] [place] [address] Notes/Report: White Blood Count 8.0 4.8-10.8 X10*3/uL [...] Panel Reviewed date:04/02/2024 02:01:14 PM Interpretation: Performing Lab:[facility], [address] [place] [phone] Notes/Report: Bilirubin Total 0.2 0.0-1.0 mg/dL Bilirubin Direct < 0.2 0.0-0.5 mg/dL Aspartate Amino Transferase 21 5-31 U/L Alanine Aminotransferase 22 0-31 U/L Total Protein 7.7 6.5-8.0 g/dL Albumin Level 4.1 3.5-5.0 g/dL Alkaline Phosphatase 128 39-117 U/L IRON PROFILE Reviewed date:04/02/2024 02:01:24 PM Interpretation: Performing Lab:[facility], [address] [place] [phone] Notes/Report: Iron 41 30-160 mcg/dL Total Iron Binding Capacity 335 228-428 mcg/dL Percent Iron Saturation 12 15-50 % Unsaturated Iron Binding 294 Ferritin Reviewed date:04/02/2024 02:01:49 PM Interpretation: Performing Lab:[facility], [address] [place] [phone] Notes/Report: Ferritin 11 10-250 ng/mL Liver Fibrosis Pnl Reviewed date:04/08/2024 08:30:50 AM Interpretation: Performing Lab:[facility], [address] [place] [phone] Notes/Report: Liver Fibrosis Score 0.19 Liver Fibrosis [...] a>0.62 and a<=1.00 : A3 (severe activity) PLH-Aetbh-4-Macroglobuli n 219 106-279 mg/dL FIB-Haptoglobin 217 43-212 mg/dL FIB-Apolipoprotein A1 153 101-198 mg/dL FIB-Total Bilirubin 0.2 0.2-1.2 mg/dL FIB-GGT 119 3-65 U/L FIB-ALT 14 6-29 U/L Reference ID [id number] Footnote SEE NOTE The reliability of results is dependent on compliance with the preanalytical and analytical conditions recommended by [employer]. The tests have to be deferred for: [...] The performance characteristics have been determined by [facility]. It has not been cleared or approved by the U.S. Food and Drug Administration. Performance characteristics refer to the analytical performance of the test. [employer], the associated logo, [employer] and all associated [employer] givens are the registered trademarks of [employer]. All third constitution party givens - (R) and (TM) - are the property of their respective owners. (C) [id number] [employer]. All rights reserved. THIS TEST WAS PERFORMED AT: [facility] [address] [place] [address] TRAVIS BOO MD,PHD,TRINY SANDEEP Reflex Titer and Pattern Reviewed date:04/05/2024 02:03:11 PM Interpretation: Performing Lab:[facility], [address] [place] [phone] Notes/Report: Anti Nuclear Antibody Screen NEGATIVE NEGATIVE [...] Negative International Consensus on SANDEEP Patterns (https://doi.org/10.151 5/bocl-1402-3844) For additional information, please refer to http://education.MindEdge/faq/FAQ1 96 (This link is being provided for informational/ educational purposes only.) THIS TEST WAS PERFORMED AT: [facility] [address] [place] [phone] JEAN PAUL LEWIS MD Anti Nuclear Antibody Titer TNP Anti Nuclear Antibody Pattern TNP SANDEEP Titer 2 TNP SANDEEP Pattern 2 TNP SANDEEP Titer 3 TNP SANDEEP Pattern 3 TNP Mitochondrial Antibody Reviewed date:04/09/2024 03:01:22 PM Interpretation: Performing Lab:[facility], [address] [place] [phone] Notes/Report: Mitochondrial Antibodies NEGATIVE NEGATIVE The specimen was negative for cytoplasmic antibodies, however additional staining was observed suggesting the presence of Antinuclear Antibodies. Consider requesting order code 249, SANDEEP Screen, IFA with Reflex to Titer and Pattern, or order code [id number], SANDEEP Screen, IFA w/reflex Titer/Pattern, and Reflex to Multiplex 11 Ab Velpen, if clinically indicated. THIS TEST WAS PERFORMED AT: [facility] [address] [address] JEAN PAUL LEWIS MD Mitochondrial Ab Titer TNP Smooth Muscle Antibody Reviewed date:04/09/2024 03:01:16 PM Interpretation: Performing Lab:[facility], [address] [place] [phone] Notes/Report: Smooth Muscle Antibody 25 <20 U [...] type 1. THIS TEST WAS PERFORMED AT: [facility]/[address] [address] SIGRID MOLINA MD,PHD Hepatitis A,B,C Profile Reviewed date:04/02/2024 02:01:41 PM Interpretation: Performing Lab:[facility], [address] [place] [phone] Notes/Report: Hepatitis A Antibody IgM Nonreactive Nonreactive [...] Blood Reviewed date:04/02/2024 01:59:23 PM Interpretation: Performing Lab:[facility], [address] [place] [address] Notes/Report: Glucose, Whole Blood 106 60-115 mg/dL METER # : [id number] Pathology Reviewed date:04/05/2024 03:24:48 PM Interpretation: Performing Lab:[facility], [address] [place] [phone] Notes/Report: Complete Blood Count Auto Di ff Reviewed date:10/24/2024 08:44:04 AM Interpretation: Performing Lab:[facility], [address] [place] [address] Notes/Report: White Blood Count 7.8 4.8-10.8 X10*3/uL [...] Panel Reviewed date:10/24/2024 08:39:47 AM Interpretation: Performing Lab:[facility], [address] [place] [phone] Notes/Report: Sodium 143 135-145 mmol/L Potassium 3.9 [...] Panel Reviewed date:10/24/2024 08:39:21 AM Interpretation: Performing Lab:[facility], [address] [place] [phone] Notes/Report: Triglycerides 147 <150 mg/dL Desirable Triglyceride: [...] Pattern Reviewed date:10/30/2024 05:07:02 PM Interpretation: Performing Lab:[facility], [address] [place] [phone] Notes/Report: Anti Nuclear Antibody Screen POSITIVE NEGATIVE SANDEEP IFA is a first line screen for detecting the presence of up to approximately 150 autoantibodies in various autoimmune diseases. A positive SANDEEP IFA result is suggestive of autoimmune disease and reflexes to titer and pattern. Further laboratory testing may be considered if clinically indicated. For additional information, please refer to http://education.MindEdge/faq/FAQ1 77 (This link is being provided for informational/ educational purposes only.) Anti Nuclear Antibody Titer 1:1280 Reference Range <1:40 Negative 1:40-1:80 Low Antibody Level >1:80 Elevated Antibody Level Anti Nuclear Antibody Pattern Nuclear, Nucleolar Nucleolar pattern is associated with systemic sclerosis (scleroderma), systemic sclerosis/polymyositis overlap and Sjogren's syndrome. AC-8,9,10: Nucleolar International Consensus on SANDEEP Patterns (https://doi.org/10151 absq-0748-1451) SANDEEP Titer 2 1:320 Reference Range <1:40 Negative 1:40-1:80 Low Antibody Level >1:80 Elevated Antibody Level SANDEEP Pattern 2 Nuclear, Homogeneous Homogeneous pattern is associated with systemic lupus erythematosus (SLE), drug-induced lupus and juvenile idiopathic arthritis. AC-1: Homogeneous International Consensus on SANDEEP Patterns (https://doi.org/10151 nlpr-0742-3412) THIS TEST WAS PERFORMED AT: [facility] [address] [place] [phone] JEAN PAUL LEWIS MD SANDEEP Titer 3 TNP SANDEEP Pattern 3 TNP US abdomen complete Reviewed date:10/24/2024 08:44:16 AM Interpretation: Performing Lab: Notes/Report: [place] [address] Ultrasound Report Signed Patient: Yuan Waters MR#: [id number] : 1960 Acct:[id number] Age/Sex: 64 / F ADM Date: 10/23/24 Loc: HO.US Attending Dr: Medardo Delgado MD Ordering Physician: Medardo Delgado MD Date of Service: 10/23/24 Procedure(s): US abdomen complete Accession Number(s): [id number] cc: Medardo Delgado MD; Lasha Castillo MD [...] OV> 10/23/24 0943 DD/ 0835 TD/TT: 10/23/2417 Drug And Alcohol Treatment Specialist: HIV Ab/Ag Reviewed date:10/24/2024 08:38:16 AM Interpretation: Performing Lab:[facility], [address] [place] [phone] Notes/Report: HIV AB/AG Nonreactive Nonreactive HIV-1 p24 [...] limit of detection of this assay. The [employer] HIV Ag/Ab Combo assay result and supplemental assay results should be interpreted in conjunction with the patient's clinical presentation, history and other laboratory results. If the results are inconsistent with clinical evidence, additional testing is suggested to confirm the result. Reason For Referral Referring Provider First Name Lasha Referring Provider Last Name Mirella perez Referring Provider Speciality Internal M edicine Referred Organization [facility] Referred Provider Medardo Delgado Jr Referred Address [address] [place] [address],[place] [address],[place], [place],[address],[place] Referred Provider Specialty Gastroentero logy General Notes Kelsi Christianson 2024 09:59:43 AM >requested a [facility] referral from [facility] for visit with dr akins on 08-29-24 [...] W/U Status Risk Notes Problem Rectal bleeding (37760227) Rectal bleeding (K62.5) Active confirmed Problem Constipation (41605114) Constipation (K59.00) Active confirmed Problem Gastroesophageal reflux disease (703913712) Gastroesophageal reflux disease (K21.9) Active confirmed Problem Gastroesophageal reflux disease without esophagitis (859579793) Gastroesophageal reflux disease without esophagitis (K21.9) Active confirmed Problem Fatty liver (413578570) Fatty liver (K76.0) Active confirmed Problem Hiatal hernia (12067605) Hiatal hernia (K44.9) Active confirmed Problem Dysphagia (07245986) Dysphagia, unspecified type (R13.10) Active confirmed Problem Abnormal UGI series (R93.3) Active confirmed Problem Irritable bowel syndrome characterized by constipation (429919123) Irritable bowel syndrome with constipation (K58.1) Active confirmed Problem Gastroesophageal reflux disease (451890617) GERD without esophagitis (K21.9) Active confirmed Problem Left upper quadrant pain (992330185) LUQ pain (R10.12) Active confirmed Problem Left lower quadrant pain (449973334) LLQ pain (R10.32) Active confirmed Problem Epigastric mass (001605750) Epigastric mass (R19.06) Active confirmed Vital Signs Blood pressure diastolic 77 mm Hg 08/29/2024 Height 66.5 in 08/29/2024 Blood pressure systolic 111 mm Hg 08/29/2024 Weight 225 lbs 08/29/2024 BMI 35.77 kg/m2 08/29/2024 Encounters Encounter Location Date Provider Diagnosis [facility] [address] [place] [id number] 04/02/2024 Medardo Delgado Jr Abnormal UGI series R93.3 [facility] [address] [place] [id number] 03/14/2024 Medardo Delgado Jr Abnormal UGI series R93.3 ; Dysphagia, unspecified type R13.10 and Fatty liver K76.0 [facility] [address] [place] [phone] 08/29/2024 Medardo Delgado Jr Abdominal pain R10.9 ; Gastroesophageal reflux disease without esophagitis K21.[address] [facility] [address] [place] [phone] 02/19/2024 Medardo Delgado Jr Gastroesophageal reflux disease without esophagitis K21.9 [facility] [address] [place] [phone] 02/21/[address] [facility] [address] [place] [phone] 03/19/[address] [facility] [address] [place] [address] 04/02/[address] [facility] [address] [place] [address] 04/05/[address] [facility] [address] [place] [id number] 10/24/[address] [facility] [address] [place] [id number] 10/30/2024 Medardo Amezcuasarah Cline Assessments Encounter Date [...] Name:Medardo vallecillo Jr, 08/14/2025 03:35:00 PM, [address] [facility] [address], [place], [address], Insurance Providers Payer Name Payer Address Payer Phone Subscriber Number Group Number Insured Name Patient Relationship to Insured Coverage Start Date Coverage End Date MEDICAID OF [facility] [address] [place] [phone] [id number] YUAN LR Self - patient is the insured Medical (General) History Medical History History ICD Code hypertension obesity Hypothyroidism asthma arthritis SANDEEP + colonoscopy 06/26/19, 1 adenoma, five-yea r followup recommended Gastroesophageal reflux dise [facility], EGD/03/23, no Santos's esophagus or H. pylori.EGD 03/26, no H. pylori, Santos's esophagus, or celiac disease. Obstructive sleep apnea type II diabetes Surgical History Surgery Date(Month/Year) knee surgery-right cholecystectomy tubal ligation breast biopsy
--- OUTSIDE RECORDS SUMMARY | 2025-02-11 16:57 | XMS_ITS | Encounter Summary ---
Author Organization [facility] Address [address] [place] [address] Phone Care Team Providers Care Senior Ui Ux Developer Name Role Phone Pcp, Unknown Primary Care Provider Unavailabl e Encounter Details Date Type Department Care Team (Late st Contact Info) Description 08/29/2019 Ancillary Orders [facility] [address] [place] [address] Landy Rossi PA [address] [place] [address] [email or web address] Social History Tobacco Use Types Packs/Day [...] documented in this encounter Care Teams Senior Ui Ux Developer Relationship Specialty Start Date End Date Pcp, Unknown PCP - General 08/29/19 documented as of this encounter Additional Source Comments The information contained in this document represents components of the legal health record. It is not the complete legal health record.[facility]
--- OUTSIDE RECORDS SUMMARY | 2025-02-11 16:57 | XMS_ITS | Encounter Summary ---
Author Organization [employer] Address [address] [place] [address] [address] [place] [address] Care Team Providers Care Gift Manager Name Role Phone Lasha Marrufo MD Primary Care Provide r Farzad Sandhu MD Unavailable [phone] Encounter Details Date Type Department Care Team (Late st Contact Info) Description 04/13/2022 Orders Only [facility] [address] [place] [phone] Elsa Julien LPN Social History Tobacco Use [...] Description 02/18/2025 1:15 PM EST Office Visit [facility] [address] [place] [address] Lasha Marrufo MD [address] [place] [address] documented as of this encounter Visit Diagnoses Not on filedocumented in this encounter Care Teams Gift Manager Relationship Specialty Start Date End Date Lasha Marrufo MD [address] [place] [address] PCP - General Internal Medicine 9/24/14 Farzad Sandhu MD [address] [place] [address] Cardiology 11/08/24 documented as of this encounter
--- OUTSIDE RECORDS SUMMARY | 2025-02-11 16:57 | XMS_ITS | Encounter Summary ---
Author Organization [employer] Address [address] [place] [address] [address] [place] [address] Care Team Providers Care Granulator Machine Operator Name Role Phone Lasha Marrufo MD Primary Care Provide r Farzad Sandhu MD Unavailable [phone] Reason for Visit * Reason Comments Med Refill Encounter Details Date Type Department Care Team (Late Contact Info) Description 09/08/2022 Refill [facility] [address] [place], [place] [phone] Lasha Marrufo MD [address] [place] [address] Acute non intractable tension-type headache; Anxiety Social [...] Description 02/18/2025 1:15 PM EST Office Visit [facility] [address] [place], [place] [phone] Lasha Marrufo MD [address] [place] [address] documented as of this encounter Visit Diagnoses Diagnosis Acute non intractable tension-type headache Anxiety Anxiety state, unspecified documented in this encounter Care Teams Granulator Machine Operator Relationship Specialty Start Date End Date Lasha Marrufo MD [address] [place] [address] PCP - General Internal Medicine 12/25/13 Farzad Sandhu MD [address] [place] [address] Cardiology 11/08/24 documented as of this encounter
--- OUTSIDE RECORDS SUMMARY | 2025-02-11 16:57 | XMS_ITS | Encounter Summary ---
Author Organization [employer] Address [address] [place] [address] [address] [place] [address] Care Team Providers Care Ingredient Handler Name Role Phone Lasha Marrufo MD Primary Care Provide r Farzad Sandhu MD Unavailable [phone] Encounter Details Date Type Department Care Team (Late st Contact Info) Description 03/31/2022 Telephone [facility] [address] [place] [phone] Lasha Marrufo MD [address] [place] [address] Social History Tobacco Use Types Packs/Day Years [...] Description 02/18/2025 1:15 PM EST Office Visit [facility] [address] [place] [address] [phone] Lasha Marrufo MD [address] [place] [address] documented as of this encounter Visit Diagnoses Not on filedocumented in this encounter Care Teams Ingredient Handler Relationship Specialty Start Date End Date Lasha Marrufo MD [address] [place] [address] PCP - General Internal Medicine 12/25/13 Farzad Sandhu MD [address] [place] [address] Cardiology 11/08/24 documented as of this encounter
--- OUTSIDE RECORDS SUMMARY | 2025-02-11 16:57 | XMS_ITS | Encounter Summary ---
Author Organization [employer] Address [address] [facility] [address] [place] [address] Care Team Providers Care Library Assistant Name Role Phone Lasha Marrufo MD Primary Care Provide r Farzad Sandhu MD Unavailable [phone] Encounter Details Date Type Department Care Team (Late st Contact Info) Description 04/06/2022 Orders Only [facility] [address] [place] [address] Eliz Adorno LPN Social History Tobacco Use [...] 1:15 PM EST Office Visit [facility] [address] [place] [address] Lasha Marrufo MD [address] [place] [address] documented as of this encounter Visit Diagnoses Not on filedocumented in this encounter Care Teams Library Assistant Relationship Specialty Start Date End Date Lasha Marrufo MD [address] [place], [place] [phone] PCP - General Internal Medicine 12/25/13 Farzad Sandhu MD [address] [place] [address] Cardiology 11/08/24 documented as of this encounter
--- OUTSIDE RECORDS SUMMARY | 2025-02-11 16:57 | XMS_ITS | Encounter Summary ---
Author Organization [employer] Address [address] [place] [address] [address] [place] [address] Care Team Providers Care Psychology Clinician Name Role Phone Lasha Marrufo MD Primary Care Provide r Farzad Sandhu MD Unavailable [phone] Encounter Details Date Type Department Care Team (Late st Contact Info) Description 09/05/2022 Orders Only [facility] [address] [place] [phone] Elsa Julien LPN Social History Tobacco Use [...] Description 02/18/2025 1:15 PM EST Office Visit [facility] [address] [place] [address] Lasha Marrufo MD [address] [place] [address] documented as of this encounter Visit Diagnoses Not on filedocumented in this encounter Care Teams Psychology Clinician Relationship Specialty Start Date End Date Lasha Marrufo MD [address] [place] [address] PCP - General Internal Medicine 12/25/13 Farzad Sandhu MD [address] [place] [address] Cardiology 11/08/24 documented as of this encounter
--- OUTSIDE RECORDS SUMMARY | 2025-02-11 16:57 | XMS_ITS | Encounter Summary ---
Author Organization [employer] Address [address] [place] [address] 7t [place] [address] Care Team Providers Care Optical Effects Camera Operator Name Role Phone Lasha Marrufo MD Primary Care Provide r Farzad Sandhu MD Unavailable [phone] Encounter Details Date Type Department Care Team (Late st Contact Info) Description 06/30/2022 Orders Only [facility] [address] [place] [address] [phone] Elsa Julien LPN Social History Tobacco Use [...] Description 02/18/2025 1:15 PM EST Office Visit [facility] [address] [place], [place] [phone] Lasha Marrufo MD [address] [place] [address] documented as of this encounter Visit Diagnoses Not on filedocumented in this encounter Care Teams Optical Effects Camera Operator Relationship Specialty Start Date End Date Lasha Marrufo MD [address] [place] [address] PCP - General Internal Medicine 12/25/13 Farzad Sandhu MD [address] [place] [address] Cardiology 11/08/24 documented as of this encounter
--- OUTSIDE RECORDS SUMMARY | 2025-02-11 16:57 | XMS_ITS | Encounter Summary ---
Author Organization [employer] Address [address] [facility] 7[address] [place] [address] Care Team Providers Care Machine Molder Name Role Phone Lasha Marrufo MD Primary Care Provide r Farzad Sandhu MD Unavailable [phone] Reason for Visit * Reason Onset Date Comments appt PA approved 12/22/2023 Encounter Details Date Type Department Care Team (Late st Contact Info) Description 12/22/2023 Telephone [facility] [address] [place] [address] Jeanne Arreola, DDS [address] [place] [address] appt PA approved Social History Tobacco Use [...] Description 02/18/2025 1:15 PM EST Office Visit [facility] [address] [place], [place] [phone] Lasha Marrufo MD [address] [place] [address] documented as of this encounter Goals Goal [...] as of this encounter Care Teams Machine Molder Relationship Specialty Start Date End Date Lasha Marrufo MD [address] [place] [address] PCP - General Internal Medicine 12/25/13 Farzad Sandhu MD [address] [place] [address] Cardiology 11/08/24 documented as of this encounter
--- OUTSIDE RECORDS SUMMARY | 2025-02-11 16:57 | XMS_ITS | Encounter Summary ---
Author Organization [employer] Address [address] [place] [address] [address] [place] [address] Care Team Providers Care Primary Special Education Teacher Name Role Phone Lasha Marrufo MD Primary Care Provide r Farzad Sandhu MD Unavailable [phone] Reason for Visit * Reason Comments Med Refill Encounter Details Date Type Department Care Team (Late st Contact Info) Description 04/04/2023 Refill [facility] [address] [place] [address] [phone] Lasha Marrufo MD [address] [place] [address] [phone] Social History Tobacco Use Types Packs/Day Years [...] Visit [facility] [address] [place] [address] [phone] Lasha Marrufo MD [address] [place] [address] [phone] documented as of this encounter Visit Diagnoses Not on filedocumented in this encounter Care Teams Primary Special Education Teacher Relationship Specialty Start Date End Date Lasha Marrufo MD [address] [place] [address] PCP - General Internal Medicine 12/25/13 Farzad Sandhu MD [address] [place] [address] Cardiology 11/08/24 documented as of this encounter
--- OUTSIDE RECORDS SUMMARY | 2025-02-11 16:57 | XMS_ITS | Encounter Summary ---
Author Organization [employer] Address [address] [facility] [address] [place] [address] Care Team Providers Care Instrument Fitter Name Role Phone Lasha Marrufo MD Primary Care Provide r Farzad Sandhu MD Unavailable [phone] Reason for Visit * Reason Onset Date Comments Referral 10/21/2024 Encounter Details Date Type Department Care Team (Late st Contact Info) Description 10/21/2024 Telephone [facility] MEDICINE 230 [place], [place] [phone] Lasha Marrufo MD 230 [place] [address] Referral Social History Tobacco Use Types Packs/Day [...] for a long wood eye lasik in [place]. Any questions contact pt at [phone]. documented in this encounter Plan of Treatment Upcoming Encounters Date Type Department Care Team (Late st Contact Info) Description 02/18/2025 1:15 PM EST Office Visit [facility] MEDICINE [address] [place] [address] Lasha Marrufo MD 230 [place] [address] documented as of this encounter Goals Goal [...] documented as of this encounter Care Teams Instrument Fitter Relationship Specialty Start Date End Date Lasha Marrufo MD [address] [place] [address] PCP - General Internal Medicine 12/25/13 Farzad Sandhu MD [address] [place] [address] Cardiology 11/08/24 documented as of this encounter
--- OUTSIDE RECORDS SUMMARY | 2025-02-11 16:57 | XMS_ITS | Clinical Summary ---
Author Organization [facility] Address [address] [place] [address] [place] [phone] Phone Care Team Providers Care Film Cleaner Name Role Phone Pcp, Unknown Primary Care [...] file Medical Devices Not on file Insurance [facility] COMMUNITY [facility] COOPERATIVE C3 ACO C3 ACO C3 ACO C3 ACO ACO C3 ACO C3 ACO C3 ACO [facility] C3 ACO Care Teams Film Cleaner Relationship Specialty Start Date End Date Pcp, Unknown PCP - General 08/29/19 Additional Source Comments The information contained in this document represents components of the legal health record. It is not the complete legal health record.[facility]
--- OUTSIDE RECORDS SUMMARY | 2025-02-11 16:57 | XMS_ITS | Encounter Summary ---
Author Organization [employer] Address [address] [facility] [address] [place] [address] Care Team Providers Care Drainage Inspector Name Role Phone Lasha Marrufo MD Primary Care Provide r Farzad Sandhu MD Unavailable [phone] Reason for Visit * Reason Comments Med Refill Encounter Details Date Type Department Care Team (Late st Contact Info) Description 10/28/2024 Refill [facility] [address] [place], [place] [phone] Lasha Marrufo MD [address] [place], [place] [phone] Acquired hypothyroidism; Mild intermittent asthma without complication [...] Visit [facility] MEDICINE [address] [place] [address] Lasha Marrufo MD [address] [place] [address] documented as of this encounter Goals Goal [...] documented as of this encounter Care Teams Drainage Inspector Relationship Specialty Start Date End Date Lasha Marrufo MD 230 [place] [address] PCP - General Internal Medicine 12/25/13 Farzad Sandhu MD [address] [place] [address] Cardiology 11/08/24 documented as of this encounter
--- OUTSIDE RECORDS SUMMARY | 2025-02-11 16:57 | XMS_ITS | Encounter Summary ---
Author Organization [employer] Address [address] [place] [address] 7t [place] [address] Care Team Providers Care Casino Games Dealer Name Role Phone Lasha Marrufo MD Primary Care Provide r Farzad Sandhu MD Unavailable [phone] Reason for Visit * Reason Comments Med Refill Encounter Details Date Type Department Care Team (Late st Contact Info) Description 03/09/2022 Refill [facility] MEDICINE [address] [place] [address] [phone] Lasha Marrufo MD [address] [place] [address] [phone] Acute migraine (Primary Dx) Social History Tobacco [...] Office Visit [facility] MEDICINE [address] [place] [address] [phone] Lasha Marrufo MD [address] [place] [address] [phone] documented as of this encounter Visit Diagnoses Diagnosis Acute migraine- Primary documented in this encounter Care Teams Casino Games Dealer Relationship Specialty Start Date End Date Lasha Marrufo MD 230 [place] [address] PCP - General Internal Medicine 12/25/13 Farzad Sandhu MD [address] [place] [address] Cardiology 11/08/24 documented as of this encounter
--- OUTSIDE RECORDS SUMMARY | 2025-02-11 16:57 | XMS_ITS | Encounter Summary ---
Author Organization [employer] Address 75 [facility] 7t [place] [address] Care Team Providers Care Molder Wax Ball Name Role Phone Lasha Marrufo MD Primary Care Provide r Farzad Sandhu MD Unavailable [phone] Reason for Visit * Reason Onset Date Comments Nurse Triage 07/04/2024 Encounter Details Date Type Department Care Team (Late st Contact Info) Description 07/04/2024 Telephone [facility] MEDICINE 230 [place], [place] [phone] Lasha Marrufo MD [address] [place] [address] Nurse Triage Social History Tobacco Use Types [...] EDT Triage call returned with BLS # [id number] Humza. Patient reports dizziness noted with standing. [...] Office Visit [facility] MEDICINE 230 [place] [address] Lasha Marrufo MD [address] [place] [address] documented as of this encounter Goals Goal [...] documented as of this encounter Care Teams Molder Wax Ball Relationship Specialty Start Date End Date Lasha Marrufo MD [address] [place] [address] PCP - General Internal Medicine 12/25/13 Farzad Sandhu MD [address] [place] [address] Cardiology 11/08/24 documented as of this encounter
--- OUTSIDE RECORDS SUMMARY | 2025-02-11 16:58 | XMS_ITS | Data Portability ---
Author Organization ID - [facility], Allergy Address [address] [address] Care Team Providers Care Clothing Patternmaker Name Role Phone SARA XAVIER Primary Care [...] copy of the audiogram, a list of [facility] hearing aid providers, and medical clearance for [...] recorded . Imaging barium swallow study - mongolian speaker 2023 024 [facility] Diagn[facility] Imaging Dept, [address] [place], [address], 11:05:06 Medication Orders None recorded . Patient [...] 25 04/30/2024 XR, esoph agram See Note [facility] , a member of [facility] Jason greene Name: YUAN MORALES Date of : 1959 Reason for Exam: DYSPHA SAVANAH, UNSPEC IFIED Exam Date: 2024 [id number] EST Report Status : Final Orderi ng Provid er: LAURIE HYDE PCP: PIOTR GS: Double contra st esopha gram perfor med. COMPAR BENJAMIN: No prior esopha gram imagin g HISTOR Y: Jason greene is a 64-yea r-old female with histor y of dyspha savanah, GERD. 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: 1 view chest radiog raph [...] Date: 2024 16:24 ET Workst ation [id number] Transc ribed By: Self Edit Transc ribed Date: 2024 13:04 ET Reside nt/PA/ ENVELOPE FOLD OPERATOR: Halley Fishman [facility] [address] [facility], [place], [address], 05/15/2024 18:16:30 Result Notes Documentation Provider Name and Address Organization Details Recorded Time Xr, Esophagram : See Note [facility], a member of [employer] Patient Name: YUAN WATERS Date of : 1960 Reason for Exam: DYSPHAGIA, UNSPECIFIED Exam Date: 04/30/2024 [id number] EST Report Status: Final Ordering Provider: LAURIE HYDE PCP: FINDINGS: Double contrast esophagram performed. COMPARISON: No prior esophagram imaging HISTORY: Patient is a 64-year-old female with history of dysphagia, GERD. 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: 1 view chest radiograph demonstrates cardiac [...] Signed Date: 05/01/2024 16:24 ET Workstation ID: [id number] Transcribed By: Self Edit Transcribed Date: 04/30/2024 13:04 ET Resident/PA/ENVELOPE FOLD OPERATOR: Halley Fishman MD [address] [place] [address], [phone], [place] - [facility] 05/15/2024 18:16:30 Problems Name Problem SNOMED Code Status Onset Date Resolution Date Notes Provider Name and Address Organization Details Recorded Time Otalgia of left ear 1890776523 Active 2018 Otalgia, left ear; Note: Date Diagnosed : 07/11/2018 1:20 PM (H92.02) Not Available [facility] 4 02:22:05 Sensorine ural hearing loss of bilateral ears 894691183 Active 2019 Sensorine ural hearing loss, bilateral ; Note: Date Diagnosed : 0 2:11 PM (H90.3) Not Available [facility] 4 02:22:06 Impacted cerumen in right ear [id number] 48319 Active 2023 LAURIE HYDE MD [address] [facility] [address], [place], [address] , [place] - [facility] 4 12:23:59 Dysphagia 55982086 Active 2023 LAURIE HYDE MD [address] [facility] [address], [place], [address] , [place] - [facility] 4 10:45:04 Problem Notes None recorded. Procedures Surgical History Date Name Laterality Status Provider Name and Address Organization Details Recorded Time 11/03/2023 FOL_DP completed LAURIE HYDE MD [address] [place] [address],[place] [address], [place], [address], [place] - [facility] 11/03/2023 10:45:32 08/30/2023 Wax_DP completed LAURIE HYDE MD [address] [place] [address],[place] [address], [place], [address], [place] - [facility] 08/30/2023 12:23:50 08/30/2023 Air only Audio - 36079 completed SHWETA ALLEN MA, CCC-A [address] [facility],[place] [address], [place], [address], [place] - [facility] 08/30/2023 11:05:08 08/30/2023 SRT & Tymps - 31421 & 64688 completed SHWETA ALLEN MA, CCC-A [address] [facility],[place] [address], [place], [address], [place] - [facility] 08/30/2023 11:05:44 Imaging Results None recorded. Procedure Notes None recorded. Medical Equipment None Reported. Allergies Allergen ID Allergen Name Allergen Category Reaction Reaction Severity Criticality Documentation Date Start Date Code Code System Note Provider Name and Address Organization Details Recorded Time 20503 pseudoeph edrine Not available other Not available Not available 08/15/2023 8896 RxNorm React ion: unkno wn, unspe cifie d;; Not Available [facility] 00:[facility] Medications Name Sig Start Date Stop Date Status Note LastModified by Organization Details LastModified Time cyclobenzapr ine 10 mg tablet 2018 active Medication ID: [id number] Durat ion Value: 10 Brand Name: cyclobenzapr ine Send Method: E-Prescribed Subs Allowed: subs OK Special Instruction: TAKE 1 TABLET BY MOUTH THREE TIMES DAILY Medica tionGenericN soo: cyclobenzapr ine Not Available Not Available Not Available ipratropium 0.5 mg-albuterol 3 mg (2.5 mg base)/3 mL nebulization soln 2018 active Medication ID: [id number] Durat ion Value: 8 Brand Name: ipratropium- albuterol Se nd Method: E-Prescribed Subs Allowed: subs OK Special Instruction: INHALE 1 AMPULE USING A NEBULIZER FOUR TIMES DAILY ONLY FOR WHEEZING & NOT FOR COUGH Medica tionGenericN soo: ipratropium- albuterol Not Available Not Available Not Available ranitidine 300 mg tablet 2018 active Medication ID: [id number] Durat ion Value: 30 Brand Name: ranitidine HCl Send Method: E-Prescribed Subs Allowed: subs OK Special Instruction: TAKE 1 TABLET TWICE DAILY Medica tionGenericN soo: ranitidine HCl Not Available Not Available Not Available metoprolol succinate ER 100 mg tablet,exten ded release 24 hr 2018 active Medication ID: [id number] Durat ion Value: 30 Brand Name: metoprolol succinate Se nd Method: E-Prescribed Subs Allowed: subs OK Special Instruction: TAKE 1 TABLET EVERY EVENING Medi cationGeneri cName: metoprolol succinate Not Available Not Available Not Available clobetasol 0.05 % topical cream 2018 active Medication ID: [id number] Durat ion Value: 15 Brand Name: clobetasol S end Method: E-Prescribed Subs Allowed: subs OK Special Instruction: APPLY TO THE AFFECTED AREA(S) SPARINGLY TWICE DAILY Medica tionGenericN soo: clobetasol Not Available Not Available Not Available clopidogrel 75 mg tablet 2018 active Medication ID: [id number] Durat ion Value: 30 Brand Name: clopidogrel Send Method: E-Prescribed Subs Allowed: subs OK Special Instruction: TAKE 1 TABLET EVERYDAY AT NOON [facility] me: clopidogrel Not Available Not Available Not Available aspirin 81 mg tablet,delay ed release 2018 active Medication ID: [id number] Durat ion Value: 30 Brand Name: aspirin Send Method: E-Prescribed Subs Allowed: subs OK Special Instruction: TAKE 1 TABLET EVERY MORNING Medi cationGeneri cName: aspirin Not Available Not Available Not Available levothyroxin e 75 mcg tablet 2018 active Medication ID: [id number] Durat ion Value: 30 Brand Name: levothyroxin e Send Method: E-Prescribed Subs Allowed: subs OK Special Instruction: TAKE 1 TABLET EVERY MORNING Medi cationGeneri cName: levothyroxin e Not Available Not Available Not Available dicyclomine 20 mg tablet 2018 active Medication ID: [id number] Durat ion Value: 30 Brand Name: dicyclomine Send Method: E-Prescribed Subs Allowed: subs OK Special Instruction: TAKE 1 TABLET BY MOUTH 2-4 TIMES PER DAY Medicati onGenericNam e: dicyclomine Not Available Not Available Not Available verapamil ER (PM) 300 mg capsule 24hr pellet CT,ext.relea se 2018 active Medication ID: [id number] Durat ion Value: 30 Brand Name: verapamil Se nd Method: E-Prescribed Subs Allowed: subs OK Special Instruction: TAKE 1 CAPSULE EVERY DAY AT NOON [facility] me: verapamil Not Available Not Available Not Available nitroglyceri n 0.4 mg sublingual tablet 2018 active Medication ID: [id number] Durat ion Value: 8 Brand Name: nitroglyceri n Send Method: E-Prescribed Subs Allowed: subs OK Special Instruction: DISSOLVE 1 TABLET UNDER THE TONGUE EVERY 5 MINUTES NEEDED FOR CHEST PAIN. DO NOT EXCEED A TOTAL OF 3 DOSES IN 15 MINUTES. Med icationGener icName: nitroglyceri n Not Available Not Available Not Available docusate sodium 100 mg capsule 2018 active Medication ID: [id number] Durat ion Value: 30 Brand Name: docusate sodium Send Method: E-Prescribed Subs Allowed: subs OK Special Instruction: TAKE 1 CAPSULE TWICE DAILY IN THE MORNING AND IN THE EVENING Medi cationGeneri cName: docusate sodium Not Available Not Available Not Available montelukast 10 mg tablet 2018 active Medication ID: [id number] Durat ion Value: 30 Brand Name: montelukast Send Method: E-Prescribed Subs Allowed: subs OK Special Instruction: TAKE 1 TABLET BY MOUTH EVERY MORNING Medi cationGeneri cName: montelukast Not Available Not Available Not Available Proventil HFA 90 mcg/actuatio n aerosol inhaler 2018 active Medication ID: [id number] Durat ion Value: 18 Brand Name: Proventil HFA Send Method: E-Prescribed Subs Allowed: subs OK Special Instruction: INHALE 2 PUFFS BY MOUTH EVERY 4 TO 6 HOURS NEEDED Medic ationGeneric Name: Proventil HFA Not Available Not Available Not Available hydralazine 50 mg tablet 2018 active Medication ID: [id number] Durat ion Value: 30 Brand Name: hydralazine Send Method: E-Prescribed Subs Allowed: subs OK Special Instruction: TAKE 1 TABLET THREE TIMES DAILY IN THE MORNING, AT NOON, AND IN THE EV ENING may take extra dose if blood pressure is elevated Med icationGener icName: hydralazine Not Available Not Available Not Available furosemide 20 mg tablet 2018 active Medication ID: [id number] Durat ion Value: 30 Brand Name: furosemide S end Method: E-Prescribed Subs Allowed: subs OK Special Instruction: TAKE 1 TABLET EVERY MORNING [facility] cationGeneri cName: furosemide Not Available Not Available Not Available polyethylene glycol 3350 17 gram/dose oral powder 2018 active Medication ID: [id number] Durat ion Value: 30 Brand Name: polyethylene glycol 3350 Send Method: E-Prescribed Subs Allowed: subs OK Special Instruction: TAKE 17 GM MIXED IN 8 OUNCES OF WATER ONCE DAILY Medica tionGenericN soo: polyethylene glycol 3350 Not Available Not Available Not Available betamethason e dipropionate 0.05 % topical ointment 2018 active Medication ID: [id number] Durat ion Value: 15 Brand Name: betamethason e dipropionate Send Method: E-Prescribed Subs Allowed: subs OK Special Instruction: APPLY TO THE AFFECTED AREA(S) SPARINGLY TWICE DAILY Medica tionGenericN soo: betamethason e dipropionate Not Available Not Available Not Available losartan 100 mg tablet 2018 active Medication ID: [id number] Durat ion Value: 30 Brand Name: losartan Sen d Method: E-Prescribed Subs Allowed: subs OK Special Instruction: TAKE 1 TABLET EVERY DAY AT NOON Medicat ionGenericNa me: losartan Not Available Not Available Not Available fluticasone propionate 50 mcg/actuatio n nasal spray,suspen jenny 2018 active Medication ID: [id number] Durat ion Value: 30 Brand Name: fluticasone propionate S end Method: E-Prescribed Subs Allowed: subs OK Special Instruction: USE 2 SPRAYS IN EACH NOSTRIL EVERY DAY Medicati onGenericNam e: fluticasone propionate Not Available Not Available Not Available Mapap Arthritis Pain 650 mg tablet,exten ded release 2018 active Medication ID: [id number] Durat ion Value: 30 Brand Name: Mapap Arthritis Pain Send Method: E-Prescribed Subs Allowed: subs OK Special Instruction: TAKE 1 TABLET BY MOUTH EVERY 8 HOURS NEEDED Medic ationGeneric Name: Mapap Arthritis Pain Not Available Not Available Not Available rosuvastatin 40 mg tablet 2018 active Medication ID: [id number] Durat ion Value: 30 Brand Name: rosuvastatin Send Method: E-Prescribed Subs Allowed: subs OK Special Instruction: TAKE 1 TABLET EVERY EVENING Medi cationGeneri cName: rosuvastatin Not Available Not Available Not Available topiramate 50 mg tablet 2018 active Medication ID: [id number] Durat ion Value: 30 Brand Name: topiramate S end Method: E-Prescribed Subs Allowed: subs OK Special Instruction: TAKE 1 AND 1/2 TABLETS AT BEDTIME Medi cationGeneri cName: topiramate Not Available Not Available Not Available duloxetine 60 mg capsule,steffen yed release 2018 active Medication ID: [id number] Durat ion Value: 30 Brand Name: duloxetine S end Method: E-Prescribed Subs Allowed: subs OK Special Instruction: TAKE 1 CAPSULE BY MOUTH EVERY MORNING Medi cationGeneri cName: duloxetine Not Available Not Available Not Available Flovent HFA 220 mcg/actuatio n aerosol inhaler 2018 active Medication ID: [id number] Durat ion Value: 30 Brand Name: Flovent HFA Send Method: E-Prescribed Subs Allowed: subs OK Special Instruction: INHALE 2 PUFFS TWICE DAILY RINSE MOUTH AFTER USING. Medic ationGeneric Name: Flovent HFA Not Available Not Available Not Available Alaway 0.025 % (0.035 %) eye drops 2018 active Medication ID: [id number] Durat ion Value: 30 Brand Name: Castro Send Method: E-Prescribed Subs Allowed: subs OK Special Instruction: PLACE 1 DROPS IN EACH EYE TWICE DAILY FOR ITCHING Medi cationGeneri cName: Alaway Not Available Not Available Not Available Vitals Date Recorded Body height Body mass index (BMI) Body weight Provider Name and Address Organization Details Last Updated DateTime 08/30/2023 167.64 cm 37.4 kg/m2 758080.43 g Sangita Sharp [facility] 08/30/2023 12:06:43 Date Recorded Body height Body mass index (BMI) Body weight Provider Name and Address Organization Details Last Updated DateTime 11/03/2023 167.64 cm 37.4 kg/m2 130441.43 g Sangita Sharp [facility] 11/03/2023 10:33:41 Social History None recorded. [...] Note 1804 LAURIE HYDE MD [facility] [address] [address] 08/30/2023 10:23:58 08/30/2023 12:24:53 Sensorineural hearing loss of bilateral ears [id number] H90.3 Mild-moder ate SNHL for both ears.Tympa nogram: Type A for both ears. Impacted c erumen in right ear [id number] 713617 H61.21 cerumen removed from right ear [id number] LAURIE HYDE MD [facility] [address] [address] 11/03/2023 10:31:27 11/03/2023 10:55:33 Dysphagia 09863274 R13.10 Health Concerns Section Related Observation LastModified by Organization Detai ls LastModified Time None Recorded Concern Status LastModified by Organization Details LastModified Time None Recorded Advance Directives Directive None Recorded Payers Insurance Date Sequence Insurance Name Policy Number Policy Sen Covered Member ID Sen Member ID Guarantor Name 05/21/2024 1 [place] [employer] [facility] [employer] (MEDICAID) Yuan Waters [id number] Yuan Waters Notes Date Note Type Note Provider Name and Address Organization Details Recorded Time 08/30/19 24 text/htm l ROS as noted in the HPI mongolian - ipadprogressive hearing losslast test with our office 03/30/2020no previous trial of amplificationno sig noise exposure LAURIE HYDE MD [address] [place] [address], [phone], [facility] - [facility] 08/30/2023 12:25:03 11/03/19 24 text/htm l ROS as noted in the HPI mongolian - familydysphagiadifficulty swallow pillshead and neck turn to left side allows to cough pill outonset about 07/2023voice normalno hemoptysisno otalgia tobacco - 1/2ppd LAURIE HYDE MD [address] [place] [address],[place] [address], [place], [address], [facility] 11/03/2023 10:54:25 OBGyn Episode No OBEpisode recorded.
--- OUTSIDE RECORDS SUMMARY | 2025-02-11 16:58 | XMS_ITS | Encounter Summary ---
Author Organization [employer] Address [address] [place] [address] 7[address] [place] [address] Care Team Providers Care Industrial Commercial Groundskeeper Name Role Phone Lasha Marrufo MD Primary Care Provide r Farzad Sandhu MD Unavailable [phone] Encounter Details Date Type Department Care Team (Late st Contact Info) Description 08/04/2022 Abstract [facility] MEDICINE [address] [place] [address] [phone] Lasha Marrufo MD [address] [place] [address] [phone] Social History Tobacco Use Types Packs/Day Years [...] PM EST Office Visit [facility] MEDICINE [address] [place], [place] [phone] Lasha Marrufo MD [address] [place], [place] [phone] documented as of this encounter Procedures Procedure [...] on filedocumented in this encounter Care Teams Industrial Commercial Groundskeeper Relationship Specialty Start Date End Date Lasha Marrufo MD [address] [place] [address] PCP - General Internal Medicine 12/25/13 Farzad Sandhu MD [address] [place] [address] Cardiology 11/08/24 documented as of this encounter
--- OUTSIDE RECORDS SUMMARY | 2025-02-11 16:58 | XMS_ITS | Clinical Summary ---
Author Organization [facility] Address [address] [place] [address] Phone Care Team Providers Care Senior Software Qa Analyst Name Role Phone Lasha Castillo MD Primary [...] 10:45 AM EDT Office Visit Orthopedic Surgery [facility] [address] [phone] Estevan Viramontes, DPM Controlled type 2 diabetes with neuropathy (CMS/HCC V24, CMS/HCC V28) (Primary Dx); Arthritis of both feet; Hammertoes of both feet; Dermatophytosis, nail; Ingrown left big toenail 11/27/2024 10:45 AM EDT Consult Orthopedic [facility] [address] [address] Estevan Viramontes, DPM Controlled type [...] AM EST Office Visit Orthopedic Surgery - [place] [address] [phone] Estevan Viramontes, DPAmy [address] [address] Health Maintenance Due Date Last Done Comments [...] topic Insurance [place] - [place] Care Teams Senior Software Qa Analyst Relationship Specialty Start Date End Date Lasha Castillo MD [address] [place] [phone] PCP - General Internal Medicine 09/09/24
--- OUTSIDE RECORDS SUMMARY | 2025-02-11 16:58 | XMS_ITS | Clinical Summary ---
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 INJECT ONE PEN (=0.75MG) SUBCUTANEOUSLY [...] Problem Noted Date Diagnosed Date Atrial fibrillation ([facility]) 11/06/2024 Assessment & Plan (12/10/2024 1:23 PM EDT): Newly diagnosed Under the care of Cardiology last note 11/18/2024 On Eliquis Assessment & Plan (11/06/2024 6:47 PM EDT): Chadvasc 3 points Rate controlled, asymptomatic Start eliquis risk vs benefits discussed, told to discuss with turf farm worker if watchman is indicated Pelvic pain 09/05/2024 Assessment & Plan (12/10/2024 1:19 PM EDT): Patient with c/o pelvic pain and recurrent Bacterial vaginosis. Pt requesting to see a Block Hacker Pelvic US 11/08/2024 was normal Seen by PHYSICAL OPTICS TEACHER 11/26/2024 Dr Ochoa, did not find anything specific Assessment & Plan (09/05/2024 2:34 PM EDT): Patient with c/o pelvic pain and recurrent Bacterial vaginosis. Pt requesting to see a Block Hacker Plan: Obtain Pelvic US Referral to PHYSICAL OPTICS TEACHER Heart murmur 09/05/2024 Assessment & Plan (12/10/2024 [...] Smear: NL 09/2021 will need a repeat [phone] Colonoscopy: 06/2019 Dr Delgado, Tubular adenoma Vaccines: Td Pt claims she had one in [place] in 2013. Assessment & Plan (10/12/2023 11:21 AM EDT): Mammogram: 08/2023 Normal Pap Smear: NL 09/2021 will need a repeat [phone] Colonoscopy: 06/2019 Dr Delgado, Tubular adenoma Vaccines: Td Pt claims she had one in [place] in 2013. Assessment & Plan (07/18/2023 1:58 PM EDT): Mammogram: 04/12/2023 Normal Pap Smear: NL 09/2021 will need a repeat [phone] Colonoscopy: 06/2019 Dr Delgado, Tubular adenoma Vaccines: Flu shot Td Pt claims she had one in [place] in 2013. Abdominal wall hernia 07/18/2023 Assessment [...] 11:40 AM EST): Under the care of Entertainment Musician Unfortunately continues to smoke, not interested in [...] 0.75 q week Eye exam : 05/31/2024 [facility] Microalbumin ordered Pt on [...] 0.75 q week Eye exam : 05/31/2024 [facility] Microalbumin ordered Pt on [...] Encounters Date Type Department Care Team Description 02/01/2025 Orders Only GENERIC EXTERNAL DATA DEPARTMENT Provider, Generic External Data 01/27/2025 Refill [facility] [address] [place] [address] Lasha Marrufo MD Smoker 01/25/2025 Refill [facility] [address] [place] [address] Lasha Marrufo MD Smoker 01/20/2025 Refill [facility] [address] [place], [place] [phone] Lasha Marrufo MD Acute non intractable tension-type headache; Mild intermittent asthma without complication 01/20/2025 Refill [facility] MEDIC[facility] [address] [place] [address] Lasha Marrufo MD Mild intermittent asthma without complication 01/20/2025 Refill [facility] [address] [place] [address] Eliz Jerome DO Type 2 diabetes mellitus without complications (HCC) 01/15/2025 Refill [facility] [address] [place] [address] Humza Morfin MD 01/15/2025 Refill [facility] [address] [place], [place] [phone] Lasha Marrufo MD 12/30/2024 Orders Only [facility] External Provider, [facility] 12/22/2024 Refill [facility] [address] [facility] [place] [address] Lasha Marrufo MD 12/12/2024 Refill [facility] [address] [place], [place] [phone] Joanne Jeffery ANP Acute non intractable tension-type headache 12/10/2024 1:15 PM EDT Office Visit [facility] [address] [facility] [place] [address] Lasha Marrufo MD Type 2 diabetes mellitus without complication, without long-term current use of insulin (CMS/HCC) (Primary Dx); Pelvic pain; Smoker; Longstanding persistent atrial fibrillation (CMS/HCC); Heart murmur; Preventative health care; Positive SANDEEP (antinuclear antibody) 12/10/2024 Travel 12/09/2024 Telephone [facility] [address] [facility] [place] [address] Lasha Marrufo MD chart prep 11/29/2024 Telephone [facility] [place] [address] Lsaha Marrufo MD Nurse Triage 11/25/[address] [address] Nancy Frye, SKID ROAD WORKER Follow-up 11/20/[address] [address] Lasha Marrufo MD Care Coordination 11/20/2024 Orders Only GENERIC EXTERNAL DATA DEPARTMENT Provider, Generic External Data 11/20/2024 Travel 11/19/2024 Telephone [facility] [place] [address] Lasha Marrufo MD Results 11/19/2024 Telephone [facility] [place] [address] Lasha Marrufo MD Nurse Triage 11/18/2024 Refill [facility] [address] [place] [address] Lasha Marrufo MD Type 2 diabetes mellitus without complication, unspecified whether custodial insulin use ([facility]) 11/11/2024 Travel from Last 3 Months Immunizations Immunization Administration [...] 02/18/2025 1:15 PM EST Office Visit [facility] [address] [place] [phone] Lasha Marrufo MD [address] [place] [address] Health Maintenance Due Date Last Done Comments [...] Name Priority Date/Time Associated Diagnosis Comments XR LUMBAR SPINE 2-3 VIEWS Routine 02/02/2025 12:23 AM EDT LIPASE Routine 02/01/2025 8:36 PM EDT MAGNESIUM Routine 02/01/2025 8:36 PM EDT BASIC METABOLIC PANEL Routine 02/01/2025 8:36 PM EDT HEPATIC FUNCTION PANEL Routine 8:36 PM EDT CBC WITH AUTO DIFFERENTIAL Routine 02/01/2025 8:36 PM EDT LDCT LUNG SCREENING Routine 01/01/2025 2 :48 PM EDT XR CHEST 2 VIEWS Routine 12/10/2024 2:29 PM EDT Smoker POCT GLYCATED HEMOGLOBIN, TOTAL Routine 12/10/2024 1:12 PM EDT Type 2 diabetes mellitus without complication, without long-term current use of insulin ([facility]) POCT GLUCOSE Routine 12/10/2024 1:11 PM EDT Type 2 diabetes mellitus without complication, without long-term current use of insulin ([facility]/HCC) SARS COV2/INFLUENZA A/B AND RSV RNA QL NAAT Routine 11/20/2024 12:44 PM EDT STREP A NUCLEIC ACID Routine 11/20/2024 12:44 PM EDT XR CHEST 2 VIEWS Routine 11/20/2024 11:0 8 AM EDT HIV 1/2 ANTIGEN/ANTIBODY, FOURTH GENERATION W/RFL Routine 10/23/2024 10:11 AM EDT Preventative health care LIPID PANEL, STANDARD Routine 10/23/2024 10:11 AM EDT Type 2 diabetes mellitus without complication, without long-term current use of insulin ([facility]) Primary hypertension Hypertriglyceridem ia HPV DNA, LOW/HIGH RISK Routine 3:17 PM EDT PAP SMEAR Routine 10/03/2024 [...] Relevant to Health Maintenance Results * XR Lumbar Spine 2-3 Views (02/02/2025 12:23 AM EDT) Anatomical Region Laterality Modality Spine, L-spine Radiographic Melody ging 02/02/2025 12:2 3 AM EDT Narrative 02/02/2025 12:24 [address] EDT [address] [address] XRay Report Signed Patient: Arianna Pineda MR#: [id number] : 1960 Acct:[id number] Age/Sex: 64 / F ADM Date: 02/01/25 Loc: HO.ED Attending Dr: Ordering Physician: Kaylee Worthington Date of Service: 02/01/25 Procedure(s): XR lumbar spine 2-3V Accession Number(s): [id number] cc: Lasha Castillo MD; Kaylee Worthington Reason for Exam: pain, compression fx? CLINICAL HISTORY: pain, compression fx? 3 views lumbar spine Comparison: None provided Findings: Five osv-irp-ckfndfe lumbar-type vertebral bodies are present. Vertebral body heights are maintained. Mild retrolisthesis of L3 on L4 is present. No pars defect. Patient is osteopenic. There is mild disc space narrowing at L3/L4, L4/L5 and L5/S1. Multilevel facet arthropathy greatest at L3/L4, L4/L5, L5/S1. Spinous processes are normally aligned. Surgical clips in the right upper quadrant. Moderate degenerative changes at the sacroiliac articulations. Whwj-zdzhjgz-cphd-right femoroacetabular joint space narrowing. Vascular calcifications are noted in the abdominal aorta and iliac arteries. IMPRESSION: No acute fracture. Multilevel degenerative disc disease greatest in the lower lumbar spine with associated facet arthropathy. Diffuse osteopenia This document has been electronically signed by: Judson Garcia III, MD PHD on 02/02/2025 00:23:12 Dictated By: Judson Garcia MD Signed By: <Electronically signed by Judson Garcia MD in OV> 02/02/25 002 DD/ TD/TT: 02/02/2522 Postal Carrier: Procedure Note Donotuseinterpreter, Image - 02/02/[address] [address] XRay Report Signed Patient: Arianna Pineda EMR#: [id number] : 1960cct:[id number] Age/Sex: 64 / FADM Date: 02/01/25 Loc: HO.ED Attending Dr: Ordering Physician: Kaylee Worthington Date of Service: 02/01/25 Procedure(s): XR lumbar spine 2-3V Accession Number(s): [id number] cc: Lasha Castillo MD; Kaylee Worthington Reason for Exam: pain, compression fx? CLINICAL HISTORY: pain, compression fx? 3 views lumbar spine Comparison: None provided Findings: Five lcx-keg-npgerlk lumbar-type vertebral bodies are present. Vertebral body heights are maintained. Mild retrolisthesis of L3 on L4 is present. No pars defect. Patient is osteopenic. There is mild disc space narrowing at L3/L4, L4/L5 and L5/S1. Multilevel facet arthropathy greatest at L3/L4, L4/L5, L5/S1. Spinous processes are normally aligned. Surgical clips in the right upper quadrant. Moderate degenerative changes at the sacroiliac articulations. Iqfj-bvgvgzb-herh-right femoroacetabular joint space narrowing. Vascular calcifications are noted in the abdominal aorta and iliac arteries. IMPRESSION: No acute fracture. Multilevel degenerative disc disease greatest in the lower lumbar spine with associated facet arthropathy. Diffuse osteopenia This document has been electronically signed by: Judson Garcia III, MD PHD on 02/02/2025 00:23:12 Dictated By: Judson Garcia MD Signed By: <Electronically signed by Judson Garcia MD in OV> 02/02/2523 DD/ TD/TT: 02/02/2522 Postal Carrier: [facility] External Provider IMG XR PROCEDURES Edited Result - Final * (ABNORMAL) CBC auto differential (02/01/2025 8:36 PM EDT) White Blood Count 9.3 4.8 - 10.8 X10*3/uL [facility] Red Blood Count 4.61 4.20 - 5.50 X10*6/uL [facility] Hemoglobin 12.0 12.0 - 16.0 g/dl [facility] Hematocrit 38.8 37.0 - 47.0 % [facility] Mean Corpuscular Volume 84.2 80.0 - 98.0 fL [facility] Mean Corpuscular Hemoglobin 26.0(L) 27.0 - 33.0 pg [facility] Mean Corpuscular HGB Conc 30.9(L) 31.0 - 35.0 g/dl [facility] Red Cell Distribution Width 15.8 11.0 - 16.0 % [facility] Platelet Count 190 160 - 400 X10*3/uL [facility] Mean Platelet Volume 9.0(L) 9.4 - 12.3 fL [facility] Neutrophils Percent Auto 55.1 45 - 73 % [facility] Imm Gran Pct Auto 0.3 0.0 - 0.4 % [facility] Lymphocytes Percent Auto 37.5 20 - 40 % [facility] Monocytes Percent Auto 5.4 2 - 11 % [facility] Eosinophils Percent Auto 1.3 0 - 4 % [facility] Basophils Percent Auto 0.4 0 - 2 % [facility] NRBC Pct Auto 0.0 0.0 - 0.2 /100WBC [facility] Neutrophils Absolute Auto 5.1 2.0 - 8.3 x10*3/uL [facility] Imm Gran Abs Auto 0.03 0.00 - 0.03 X10*3/uL [facility] Lymphocytes Absolute Auto 3.5 1.2 - 4.9 X10*3/uL [facility] Monocytes Absolute Auto 0.5 0.1 - 1.2 X10*3/uL [facility] Eosinophils Absolute Auto 0.1 0.0 - 0.4 X10*3/uL [facility] Basophils Absolute Auto 0.0 0.0 - 0.2 X10*3/uL [facility] NRBC Abs Auto 0.000 0.0 - 0.012 X10*3/uL [facility] 02/01/2025 8:36 PM EDT 02/01/2025 8:39 PM EDT Generic External Data Provider LAB BLOOD ORDERAB LES Final Result Performing Organization Address [facility] Co de Phone Number [facility] [address] [place] [phone] * Magnesium (02/01/2025 8:36 PM EDT) Magnesium 2.0 1.6 - 2.6 mg/dL [facility] 02/01/2025 8:36 PM EDT 02/01/2025 8:39 PM EDT Generic External Data Provider LAB BLOOD ORDERAB LES Final Result Performing Organization Address [facility] Co de Phone Number [facility] [address] [place] [phone] * Lipase (02/01/2025 8:36 PM EDT) Lipase 28 8 - 78 U/L [facility] 02/01/2025 8:36 PM EDT 02/01/2025 8:39 PM EDT Generic External Data Provider LAB BLOOD ORDERAB LES Final Result Performing Organization Address [facility] de Phone Number [facility] [address] [place] [phone] * (ABNORMAL) Hepatic Function Panel (02/01/2025 8:36 PM EDT) Bilirubin, Total 0.1 0.0 - 1.0 mg/dL [facility] Bilirubin, Direct <0.2 0.0 - 0.5 mg/dL [facility] Aspartate Amino Transferase 21 5 - 31 U/L [facility] Alanine Aminotransferase 20 0 - 31 U/L [facility] Total Protein 7.6 6.5 - 8.0 g/dL [facility] Albumin Level 4.2 3.5 - 5.0 g/dL [facility] Alkaline Phosphatase 126(H) 39 - 117 U/L [facility] 02/01/2025 8:36 PM EDT 02/01/2025 8:39 PM EDT us Generic External Data Provider LAB BLOOD ORDERAB LES Final Result [facility] [address] [place] [phone] * (ABNORMAL) Basic Metabolic Panel (02/01/2025 8:36 PM EDT) Sodium 141 135 - 145 mmol/L [facility] Potassium 3.5 3.3 - 5.1 mmol/L [facility] Chloride 106 96 - 108 mmol/L [facility] Carbon Dioxide 29 22 - 29 mmol/L [facility] Anion Gap 10(L) 12 - 20 [facility] Urea Nitrogen (BUN) 11 9 - 16 mg/dL [facility] Creatinine, Serum 0.66 0.5 - 1.4 mg/dL [facility] Creatinine Clr Calc Pharmacy 111.4 [facility] Comment:Provided height and weight: 167.64 cm,113.398 kg.eGFR (calculated from the MDRD study equation) and eCrCl(calculated from the Cockcroft-Gault equation) are based ondifferent parameters and may not yield comparable results.If eCrCl result is absurd, please check patient'sheight/weight. Estimated Glomerular Filt Rate >60 [facility] Comment:Chronic Kidney Disea se: Estimated GFR < 60 mL/min/1.07m3Tofgks Kidney Disease: Estimated GFR < 15 mL/min/1.73m2 Glucose 81 60 - 115 mg/dL [facility] Calcium 9.2 8.4 - 10.2 mg/dL [facility] 02/01/2025 8:36 PM EDT 02/01/2025 8:39 PM EDT us Generic External Data Provider LAB BLOOD ORDERAB LES Final Result Performing Organization Address City/State/[facility] Co de Phone Number [facility] [address] [place] [phone] * CT Lung Screening Low dose (01/01/2025 2:48 PM EDT) Anatomical Region Laterality Modality Lung Computed Tomogra phy 01/01/2025 2:48 PM EDT Narrative 01/01/2025 2:50 PM [address]T [address] [address] [address] Scan Report Signed Patient: Arianna Pineda MR#: [id number] : 1960 Acct:[id number] Age/Sex: 64 / F ADM Date: 12/30/24 Loc: HO.CT Attending Dr: Katrina Velez PA-C Ordering Physician: Katrina Velez PA-C Date of Service: 12/30/24 Procedure(s): CT lung screening Accession Number(s): [id number] cc: Lasha Castillo MD; Katrina Velez PA-C Report Number: [id number]: Total DLP = 85.00 mGy-cm Reason for Exam: F17.210 - Nicotine dependence, cigarettes, uncomplicated CLINICAL HISTORY: F17.210 - Nicotine dependence, cigarettes, uncomplicated CT lung cancer screening (LDCT) Comparison: CT/[place] - CT LUNG SCREENING - 12/01/23 10:36 [...] Barrett MD in OV> 01/01/25 1450 DD/ 144 TD/TT: 01/01/25 144 Postal Carrier: Procedure Note Donotuseinterpreter, Image - 01/01/[address] [address] [address] Scan Report Signed Patient: Arianna Pineda EMR#: [id number] : 1960cct:[id number] Age/Sex: 64 / FADM Date: 12/30/24 Loc: HO.CT Attending Dr: Katrina Velez PA-C Ordering Physician: Katrina Velez PA-C Date of Service: 12/30/24 Procedure(s): CT lung screening Accession Number(s): [id number] cc: Lasha Castillo MD; Katrina Velez PA-C Report Number: [id number]: Total DLP = 85.00 mGy-cm Reason for Exam: F17.210 - Nicotine dependence, cigarettes, uncomplicated CLINICAL HISTORY: F17.210 - Nicotine dependence, cigarettes, uncomplicated CT lung cancer screening (LDCT) Comparison: [place] - CT LUNG SCREENING - 12/01/23 10:36 [...] 01/01/25 1450 DD/ 1448 TD/TT: 01/01/25 1448 Postal Carrier: [facility] External Provider IMG CT PROCEDURES Final Result * XR Chest 2 Views (12/10/2024 2:29 PM EDT) Only the most recent of2 resultswithin the time period is included. Anatomical Region Laterality Modality Chest Radiographic Melody ging 12/10/2024 2:29 PM EDT Narrative 12/10/2024 2:41 PM EDT [address] [address] XRay Report Signed Patient: Arianna Pineda MR#: [id number] : 1960 Acct:[id number] Age/Sex: 64 / F ADM Date: 12/10/24 Loc: HO.HHCX Attending Dr: Lasha Castillo MD Ordering Physician: Lasha Castillo MD Date of Service: 12/10/24 Procedure(s): XR chest 2V Accession Number(s): [id number] cc: Lasha Castillo MD Reason for Exam: [...] 12/10/24 1439 DD/ 1429 TD/TT: 12/10/24 1430 Postal Carrier: Procedure Note Donotuseinterpreter, Image - 12/10/[address] [address] XRay Report Signed Patient: Arianna Pineda EMR#: [id number] : 1960cct:[id number] Age/Sex: 64 / FADM Date: 12/10/24 Loc: HO.HHCX Attending Dr: Lasha Castillo MD Ordering Physician: Lasha Castillo MD Date of Service: 12/10/24 Procedure(s): XR chest 2V Accession Number(s): [id number] cc: Lasha Castillo MD Reason for Exam: [...] 12/10/24 1439 DD/ 1429 TD/TT: 12/10/24 1430 Postal Carrier: Lasha Jara MD IMG XR PROCEDURES Fin al Result * (ABNORMAL) POCT Hgb A1c (12/10/2024 1:12 PM EDT) Pathologist [facility] Hemoglobin A1C 6.1(A) 4.0 - 5.7 % QC Media Lot # [id number] Lot# Expiration Date 170,640 Blood 12/10/2024 1:12 PM EDT Lasha Jara MD POINT OF CARE TEST EN TER/EDIT ORDERABLES Final Result * POCT Glucose (12/10/2024 1:11 PM EDT) [facility] Glucose Blood, POC 100 60 - 200 mg/dL QC Media Lot # [id number] Lot# Expiration Date ,509,342 Blood Capillary blood specimen / Unknown 12/10/2024 1:11 PM EDT Lasha Jara MD POINT OF CARE TEST EN TER/EDIT ORDERABLES Final Result * Strep A Nucleic Acid (11/20/2024 12:44 PM EDT) Pathologist [facility] IDNOW SERIAL# [id number] [facility] Strep A Nucleic Acid Negative Negative [facility] Comment:All test results mus t be [...] GENERAL ORDERABLES Final Result Performing Organization Address [facility] Co de Phone Number [facility] [address] [place] [phone] * SARS-CoV-2 RNA, Influenza A/B, and RSV RNA, Ql NAAT (11/20/2024 12:44 PM EDT) Influenza A PCR NEGATIVE Negative [facility] Influenza B PCR NEGATIVE Negative [facility] Resp Syncy Virus RNA Qual PCR NEGATIVE Negative [facility] SARS COV2 PCR NEGATIVE Negative [facility] Comment:All test results mus t be [...] use by authorized laboratories.Testing performed on the [employer] GeneXpert utilizingreal-time RT-PCR.All SARS CoV2 and positive influenza A/B results arereported to [facility]. 11/20/2024 12:4 4 PM EDT 11/20/2024 12:50 PM EDT Generic External Data Provider LAB MICROBIOLOGY - GENERAL ORDERABLES Final Result Performing Organization Address [facility]/ZIP Co de Phone Number [facility] [address] [place] [phone] * HIV-1/2 Antigen and Antibodies, Fourth Generation, with Reflexes (10/23/2024 10:11 AM EDT) HIV AB/AG Nonreactive Nonreactive [facility] Comment:HIV-1 p24 Ag and/or HIV-1/HIV-2 Ab not detected.A test result that is nonreactive does not exclude thepossibility of exposure to or infection with HIV-1 and/orHIV-2. Nonreactive results in this assay for individualswith prior exposure to HIV-1 and/or HIV-2 may be due toantigen and antibody levels that are below the limit ofdetection of this assay.The [employer] HIV Ag/Ab Combo assay result andsupplemental assay results should be interpreted inconjunction with the patient's clinical presentation,history and other laboratory results. If the results areinconsistent with clinical evidence, additional testing issuggested to confirm the result. Blood Venous blood specimen / Unknown 10/23/2024 10:11 AM EDT 10/23/2024 10:11 AM EDT us Lasha Jara MD LAB BLOOD ORDERABLES Final Result [facility] [address] [place] [phone] * (ABNORMAL) Lipid Panel, Standard (10/23/2024 10:11 AM EDT) Triglycerides 147 <150 mg/dL [facility] Comment:Desirable Triglyceri de: less than 150 mg/dLBorderline High Triglyceride 150-199 mg/dLHigh Triglyceride: 200-499 mg/dLVery High Triglyceride: greater than or equal to 5OO mg/dL Cholesterol 116 <200 mg/dL [facility] Comment:Desirable Cholestero l: less than 200 mg/dLBorderline High Cholesterol: 200-239 mg/dLHigh Cholesterol: greater than 239 mg/dL LDL Cholesterol Calculated 54 <100 mg/dL [facility] Comment:Desirable LDL: less than 100 mg/dLNear Optimal/Above Optimal LDL: 110- 129 mg/dLBorderline High LDL: 130-159 mg/dLHigh LDL: 160-189 mg/dLVery High LDL: greater than or equal to 190 mg/dL HDL Cholesterol 33(L) >40 mg/dL [facility] Comment:Desirable HDL: great er than 40 mg/dL Note: This HDL assay may give artificially low results in patients with liver disease. Blood Venous blood specimen / Unknown 10/23/2024 10:11 AM EDT 10/23/2024 10:11 AM EDT us Lasha Jara MD LAB BLOOD ORDERABLES Final Result Performing Organization Address [facility] Co de Phone Number [facility] [address] [place] [phone] * HPV DNA, Low/High Risk (10/03/2024 3:17 PM EDT) HPV High Risk Negative Negative [facility] HPV Genotype 16 Negative Negative [facility] HPV Genotype 18 Negative Negative [facility] Comment:HPV testing performe d at [facility] (CLIA#[id number]), [address] [place] [address].Testing for HPV was performed using the Marcella [...] ORDERAB LES Final Result Performing Organization Address [facility]/ZIP Co de Phone Number [facility] [address] [place] [phone] * Pap Smear (10/03/2024 3:17 PM EDT) 10/03/2024 3:17 PM EDT 10/07/2024 7:55 AM EDT [facility] - 10/09/2024 1:36 PM EDT ----- ------- Name: PinedaArianna Age/Sex: 64/F : 1960 Unit#: [id number] Attend Dr: Sanjay Ochoa MD Re10/03/24 Status: DEP REF Location: [facility] Disch: ----- ------- SPEC : [id number] RECD: 10/07/24 STATUS: NUNO BARRETO NUM: [id number] COURTNEY: 10/03/24-[address] [facility] [address]: Sanjay Ochoa [...] and HPV testing will be performed at [facility] (CLIA #[id number]), [address] [place] [address]. Testing for HPV was performed using the [employer] 6800 system. The presence of HPV in [...] professional services are performed by [facility] ([address] [place] [address]; ; CLIA #[id number]). The PAP Test is a screening procedure with the inherent possibility of both false negative and false positive results. Results should be interpreted in the context of historic and current clinical findings. Reliability of the PAP Test is enhanced by performing the test on a regular repetitive basis. CONTINUED ON NEXT PAGE ----- ------- Name: Arianna Pineda Age/Sex: 64/F : 1960 Unit#: [id number] Attend Dr: Sanjay Ochoa MD Re10/03/24 Status: DEP REF Location: [facility] Disch: ----- ------- SPEC : [id number] RECD: 10/07/24840 STATUS: UNNO BARRETO NUM: [id number] COURTNEY: 10/03/24-[address] [facility] [address]: Sanjay Ochoa MD ENTERED: 10/07/24 SP TYPE: Pap Smr OTHR DR: Lasha Castillo MD ORDERED: Pap Smear Copies To: Lasha Castillo MD [facility] [address] [place] [address] Sanjay Ochoa MD [facility] [address] [place] [address] ----- ------- Signed (signature on file) ROB Nunes (ASC) 10/09/24 1336 ----- ------- END OF REPORT Generic External Data Provider LAB CYTOLOGY AJ WALTERS Final Result [facility] [address] [place] [address] [phone] * BI Mammogram Screening Tomosynthesis Bilateral (08/29/2024 10:50 AM EDT) Anatomical Region Laterality Modality Breast Bilateral Mammography 08/29/2024 10:5 0 AM EDT Narrative 09/06/2024 4:28 PM EDT [address] [place], [place] [id number] Mammography Report Signed Patient: Arianna Pineda MR#: [id number] : 1960 Acct:[id number] Age/Sex: 64 / F ADM Date: 08/29/24 Loc: HO.MAMMO Attending Dr: Lasha Castillo MD Ordering Physician: Lasha Castillo MD Resu lts: 2Benign Findings Date of Service: 08/29/24 Follow Up: 1 Year From Orig inal Mammogram Procedure(s): MM tomosynthesis screening BI Accession Number(s): [id number] cc: Lasha Castillo MD EXAMINATION: MM SCREENING [...] 09/06/24 1625 DD/ 1050 TD/TT: 08/29/24 1120 Postal Carrier: Procedure Note Donmarkinterpreter, Image - [facility]/06/20[facility] [address] [place] [address] Mammography Report Signed Patient: Arianna Pineda EMR#: [id number] : 1960cct:[id number] Age/Sex: 64 / FADM Date: 08/29/24 Loc: HO.MAMMO Attending Dr: Lasha Castillo MD Ordering Physician: Lasha Castillo MDResu lts: 2Benign Findings Date of Service: 08/29/24Follow Up: 1 Year From Orig inal Mammogram Procedure(s): MM tomosynthesis screening BI Accession Number(s): [id number] cc: Lasha Castillo MD EXAMINATION: MM SCREENING [...] 09/06/24 1625 DD/ 1050 TD/TT: 08/29/24 1120 Postal Carrier: Lasha Jara MD IM BI PROCEDURES Fin al Result * Albumin, Random Urine W/Creatinine (06/29/2022 12:01 PM EDT) Creatinine, Random Urine 112 20 - 275 mg/dL [facility] Albumin, Urine 2.0 See Note: mg/dL [facility] Comment: Reference Range: Reference Range Not established Albumin/Creatinin e Ratio, Random Urine 18 <30 mcg/mg creat [facility] Comment: The ADA defines abnormalities in albumin [...] 06/30/2022 5:17 PM EDT SPLIT 06/29/2022 FROM [id number] Lasha Jara MD LAB URINE ORDERABLES Final Result [facility] [address] [place] [address] [facility] [address] [place] [address] * Hepatitis C Antibody with Reflex to HCV, RNA, Quantitative, Real-Time PCR (06/29/2022 9:03 AM EDT) Hepatitis C Antibody NON-REACT BROCK NON-REACT BROCK [facility] Index 0.07 <1.00 [facility] Comment: HCV antibody was non-reactive. There is no laboratory evidence of HCV infection. In most cases, no further action is required. However, if recent HCV exposure is suspected, a test for HCV RNA (test code 75280) is suggested. For additional information please refer to http://education.[employer]/faq/AOA73n8 (This link is being provided for informational/ educational purposes only.) 06/29/2022 9:03 AM EDT 06/29/2022 9:04 AM EDT Narrative [facility] - 06/29/2022 10:21 PM EDT FASTING:NO PATIENT UNABLE TO VOID; ADVISED TO RETURN FOR COLLECTION. FASTING: NO us Lasha Jara MD LAB BLOOD ORDERABLES Final Result [facility], [place] [address] [facility] [address] [place] [address] * Colonoscopy (06/26/2019) Colonoscopy Normal Normal 06/26/2019 Irene Zavala - 06/26/2019 2:53 PM EDT Recommended 5 year follow up ( see scanned notes) us Historical Provider HEALTH MAINTENANCE Edited Result - Final from Last 3 Months or Most Recently Relevant to Health Maintenance Insurance [place] [place] [address] C3 [facility] MEDICAID STAND ADULT Care Teams Lump Receiver Relationship Specialty Start Date End Date Lasha Marrufo MD [address] [place] [address] PCP - General Internal Medicine 12/25/13 Farzad Sandhu MD [address] [place] [phone] Cardiology 11/08/24
--- OUTSIDE RECORDS SUMMARY | 2025-02-11 16:58 | XMS_ITS | Encounter Summary ---
Author Organization [employer] Address [address] [facility] [address] [place] [address] Care Team Providers Care Account Processor Name Role Phone Lasha Marrufo MD Primary Care Provide r Farzad aSndhu MD Unavailable [phone] Encounter Details Date Type Department Care Team ([facility] st Contact Info) Description 02/19/2024 Telephone [facility] [address] [place], [place] [phone] Lasha Marrufo MD [address] [place] [address] Social History Tobacco Use Types Packs/Day Years [...] Description 02/18/2025 1:15 PM EST Office Visit [facility] [address] [place] [address] Lasha Marrufo MD [address] [place] [phone] documented as of this encounter Goals Goal [...] documented as of this encounter Care Teams Account Processor Relationship Specialty Start Date End Date Lasha Marrufo MD [address] [place] [phone] PCP - General Internal Medicine 12/25/13 Farzad Sandhu MD [address] [place] [address] Cardiology 11/08/24 documented as of this encounter
== END 2025-02-11 16:18 | disposition home or self-care (01) ==
LOC: HO.HPS 15:13
PROVIDERS: PCP Internal Medicine; Visit Provider Internal Medicine
DX: J44.89 Other specified chronic obstructive pulmonary disease (principal)
CPT/HCPCS: 94010; 99213

== ENCOUNTER → 2025-02-11 15:12 | Outpatient (BNVA) | payer MEDICAID, SELFPAY | PROVIDERS: PCP Internal Medicine; Visit Provider Internal Medicine | DX: J44.89 Other specified chronic obstructive pulmonary disease (principal); J30.9 Allergic rhinitis, unspecified; F17.210 Nicotine dependence, cigarettes, uncomplicated | CPT/HCPCS: 94010; 99212 ==

== ENCOUNTER 2025-03-17 03:15 | Emergency (ER) | payer MEDICAID, SELFPAY ==
--- OUTSIDE RECORDS SUMMARY | 2024-04-02 05:20 | XMS_ITS ---
Author Organization [facility] Address [address] [place] [address] [place] [phone] Care Team Providers Care Museum Security Chief Name Role Phone Mirella Jara MD, Lasha Primary Care Provide r Medardo Ortega Jr REASON FOR VISIT abn ugi series Encounters Encounter Location Date Provider Diagnosis [facility] [place] [address] [place] [phone] 04/02/2024 Medardo Delgado Jr Abnormal UGI series R93.3 Assessments Encounter Date Diagnosis (ICD Code) Assessment Notes Treatment Notes Treatment Clinical Notes Section Notes 04/02/2024 Abnormal UGI series (ICD-10 - R93.3) Plan Of Treatment Next Appt Details Provider Name:Medardo vallecillo Jr, 08/14/2025 03:35:00 PM, [address] [place] [address], Suite [facility], [place], [address], Progress Notes * FRANTZ WATERSOB:[birth year] (64 yo F)Acc No.[id number]:04/02/2024 EGD/MAC Patient: Ajit QUINONESYUAN CAICEDO Provider: Josh Delgado MD :1960 A ge:64 Y S ex:Female Date:04/02/2024 Address:[address] [place], [place] [id number] Pcp:Lasha holcomb MD Subjective: * Chief Complaints: * A bn ugi series Assessment: * Assessment: 1. A bnormal UGI series - R93.3 (Primary) Plan: * Procedure Codes: 4 3239 UPPER GI ENDOSCOPY, BIOPSY Billing Information: * Procedure Codes: 32843 UPPER GI ENDOSCOPY, BIOPSY. * The named appointment provid er may or may not be the originator of this progress note, and it is not deemed complete until electronically signed by the appointment provider. Sign off status: Pending * Provider: Josh Delgado MD Date: Generated for Deb kay/Hunter/Jorgeransmitting on: 05/18/2024 04:21 AM EST
[2025-03-17 03:28] VITALS: BP 125/64; PULSE 73; RESP 16; TEMP 36.6; O2SAT 97; BMI 36.2
--- OUTSIDE RECORDS SUMMARY | 2025-03-17 04:21 | XMS_ITS | Encounter Summary ---
Author Organization [employer] Address [address] [place] [address] [address] [place] [address] Care Team Providers Care Pharmacy Consultant Name Role Phone Lasha Marrufo MD Primary Care Provide r Farzad Sandhu MD Unavailable [phone] Encounter Details Date Type Department Care Team (Late st Contact Info) Description 04/13/2022 Orders Only [facility] [address] [place] [phone] Elsa Julien LPN Social History Tobacco Use [...] Care Team (Late st Contact Info) Description 03/21/2025 1:00 PM EST Medication Management [facility] [address] [place] [phone] Violet Narvaez, PharmD [address] [place] [address] documented as of this encounter Visit Diagnoses Not on filedocumented in this encounter Care Teams Pharmacy Consultant Relationship Specialty Start Date End Date Lasha Marrufo MD [address] [place] [phone] PCP - General Internal Medicine 9/24/14 Farzad Sandhu MD [address] [place] [address] Cardiology 11/08/24 documented as of this encounter
--- OUTSIDE RECORDS SUMMARY | 2025-03-17 04:21 | XMS_ITS | Encounter Summary ---
Author Organization [employer] Address [address] [place] [address] [address] [place] [address] Care Team Providers Care Nurse Plastics Name Role Phone Lasha Marrufo MD Primary Care Provide r Farzad Sandhu MD Unavailable [phone] Reason for Visit * Reason Comments Med Refill Encounter Details Date Type Department Care Team (Late st Contact Info) Description 04/04/2023 Refill [facility] [address] [place] [phone] Lasha Marrufo MD [address] [place] [address] Social History Tobacco Use Types Packs/Day Years [...] Description 03/21/2025 1:00 PM EST Medication Management [facility] [address] [place] [phone] Violet Narvaez, PharmD [address] [place] [address] documented as of this encounter Visit Diagnoses Not on filedocumented in this encounter Care Teams Nurse Plastics Relationship Specialty Start Date End Date Lasha Marrufo MD [address] [place] [address] PCP - General Internal Medicine 12/25/13 Farzad Sandhu MD [address] [place] [address] Cardiology 11/08/24 documented as of this encounter
--- OUTSIDE RECORDS SUMMARY | 2025-03-17 04:21 | XMS_ITS | Encounter Summary ---
Author Organization [employer] Address [address] [place] [address] [address] [place] [address] Care Team Providers Care Progressive Care Unit Registered Nurse Name Role Phone Lasha Marrufo MD Primary Care Provide r Farzad Sandhu MD Unavailable [phone] Encounter Details Date Type Department Care Team (Late st Contact Info) Description 03/31/2022 Telephone [facility] MEDICINE [address] [place] [phone] Lasha Marrufo MD [address] [place] [address] Social History Tobacco Use Types Packs/Day Years [...] Department Care Team (Late Contact Info) Description 03/21/2025 1:00 PM EST Medication Management [facility] [address] [place] [phone] Violet Narvaez, DaynaD [address] [place] [address] documented as of this encounter Visit Diagnoses Not on filedocumented in this encounter Care Teams Progressive Care Unit Registered Nurse Relationship Specialty Start Date End Date Lasha Marrufo MD [address] [place] [address] PCP - General Internal Medicine 12/25/13 Farzad Sandhu MD [address] [place] [address] Cardiology 11/08/24 documented as of this encounter
--- OUTSIDE RECORDS SUMMARY | 2025-03-17 04:21 | XMS_ITS | Patient Health Record ---
Author Organization [facility] Address [address] [place] [address] Care Team Providers Care Hook Tender Name Role Phone Mirella Jara MD, Lasha Primary Care Provide Medardo Thornton Jr Unavailable Allergies Allergen (clinical drug ingredient) Drug/Non Drug Allergy documented on EMR Reaction Allergy Type Onset Date Status codeine Codeine Sulfate Unknown Drug Allergy A ctive Results Component Value Reference Range Flag Notes Liver Fibrosis Pnl Reviewed date:04/08/2024 08:30:50 AM Interpretation: Performing Lab:[facility], [address] [place] [address] Notes/Report: Liver Fibrosis Score 0.19 Liver Fibrosis [...] a>0.62 and a<=1.00 : A3 (severe activity) DMP-Vzpub-4-Macroglobul in 219 106-279 mg/dL FIB-Haptoglobin 217 43-212 mg/dL A FIB-Apolipoprotein A1 153 101-198 mg/dL FIB-Total Bilirubin 0.2 0.2-1.2 mg/dL FIB-GGT 119 3-65 U/L A FIB-ALT 14 6-29 U/L Reference ID [id number] Footnote SEE NOTE The reliability of results is dependent on compliance with the preanalytical and analytical conditions recommended by [employer] [facility]. The tests have to be deferred for: [...] The performance characteristics have been determined by [facility]. It has not been cleared or approved by the U.S. Food and Drug Administration. Performance characteristics refer to the analytical performance of the test. [employer], the associated logo, [employer] and all associated [employer] givens are the registered trademarks of [employer]. All third republican givens - (R) and (TM) - are the property of their respective owners. (C) 7991-1859 [employer]. All rights reserved. THIS TEST WAS PERFORMED AT: [facility] [address] [place] [address] TRAVIS BOO MD,PHD,TRINY SANDEEP Reflex Titer and Pattern Reviewed date:04/05/2024 02:03:11 PM Interpretation: Performing Lab:[address] [address] Notes/Report: Anti Nuclear Antibody Screen NEGATIVE NEGATIVE N SANDEEP IFA is a first line screen [...] AC-0: Negative International Consensus on SANDEEP Patterns (https://doi.org/10.1 515/zbve-1450-2087) For additional information, please refer to http://education.Oris4.Streamix/faq/ YJU578 (This link is being provided for informational/ educational purposes only.) THIS TEST WAS PERFORMED AT: [facility] [address] [place] [phone] JEAN PAUL LEWIS MD Anti Nuclear Antibody Titer TNP Anti Nuclear Antibody Pattern TNP SANDEEP Titer 2 TNP SANDEEP Pattern 2 TNP SANDEEP Titer 3 TNP SANDEEP Pattern 3 TNP Pathology Reviewed date:04/05/2024 03:24:48 PM Interpretation: Performing Lab:[facility], [address] [place] [phone] Notes/Report: SANDEEP Reflex Titer and Pattern Reviewed date:10/30/2024 05:07:02 PM Interpretation: Performing Lab:[address] [address] Notes/Report: Anti Nuclear Antibody Screen POSITIVE NEGATIVE A SANDEEP IFA is a first line screen for detecting the presence of up to approximately 150 autoantibodies in various autoimmune diseases. A positive SANDEEP IFA result is suggestive of autoimmune disease and reflexes to titer and pattern. Further laboratory testing may be considered if clinically indicated. For additional information, please refer to http://education.Spacecom/faq/ ZOG683 (This link is being provided for informational/ educational purposes only.) Anti Nuclear Antibody Titer 1:1280 A Reference Range <1:40 Negative 1:40-1:80 Low Antibody Level >1:80 Elevated Antibody Level Anti Nuclear Antibody Pattern Nuclear, Nucleolar A Nucleolar pattern is associated with systemic sclerosis (scleroderma), systemic sclerosis/polymyositi s overlap and Sjogren's syndrome. AC-8,9,10: Nucleolar International Consensus on SANDEEP Patterns (https://doi.org/10.1 515/ngka-4434-4955) SANDEEP Titer 2 1:320 A Reference Range <1:40 Negative 1:40-1:80 Low Antibody Level >1:80 Elevated Antibody Level SANDEEP Pattern 2 Nuclear, Homogeneous A Homogeneous pattern is associated with systemic lupus erythematosus (SLE), drug-induced lupus and juvenile idiopathic arthritis. AC-1: Homogeneous International Consensus on SANDEEP Patterns (https://doi.org/10.1 515/npsq-3535-4212) THIS TEST WAS PERFORMED AT: [facility] [address] [address] JEAN PAUL LEWIS MD SANDEEP Titer 3 TNP SANDEEP Pattern 3 TNP Complete Blood Count no Diff Reviewed date:04/02/2024 02:01:30 PM Interpretation: Performing Lab:[facility], [address] [place] [phone] Notes/Report: White Blood Count 8.0 4.8-10.8 X10*3/uL N Red Blood Count 4.54 4.20-5.50 X10*6/uL N Hemoglobin 12.6 12.0-16.0 g/dl N Hematocrit 39.1 37.0-47.0 % N Mean Corpuscular Volume 86.1 80.0-98.0 fL N Mean Corpuscular Hemoglobin 27.8 27.0-33.0 pg N Mean Corpuscular HGB Conc 32.2 31.0-35.0 g/dl N Red Cell Distribution Width 15.1 11.0-16.0 % N Platelet Count 212 160-400 X10*3/uL N Mean Platelet Volume 8.6 9.4-12.3 fL L NRBC Pct Auto 0.0 0.0-0.2 /100WBC N NRBC Abs Auto 0.000 0.0-0.012 X10*3/uL N Liver Panel Reviewed date:04/02/2024 02:01:14 PM Interpretation: Performing Lab:[facility], [address] [place] [phone] Notes/Report: Bilirubin Total 0.2 0.0-1.0 mg/dL N Bilirubin Direct < 0.2 0.0-0.5 mg/dL N Aspartate Amino Transferase 21 5-31 U/L N Alanine Aminotransferase 22 0-31 U/L N Total Protein 7.7 6.5-8.0 g/dL N Albumin Level 4.1 3.5-5.0 g/dL N Alkaline Phosphatase 128 39-117 U/L H IRON PROFILE Reviewed date:04/02/2024 02:01:24 PM Interpretation: Performing Lab:[facility], [address] [place] [phone] Notes/Report: Iron 41 30-160 mcg/dL N Total Iron Binding Capacity 335 228-428 mcg/dL N Percent Iron Saturation 12 15-50 % L Unsaturated Iron Binding 294 Ferritin Reviewed date:04/02/2024 02:01:49 PM Interpretation: Performing Lab:[facility], [address] [place] [phone] Notes/Report: Ferritin 11 10-250 ng/mL N Mitochondrial Antibody Reviewed date:04/09/2024 03:01:22 PM Interpretation: Performing Lab:[facility], [address] [place] [phone] Notes/Report: Mitochondrial Antibodies NEGATIVE NEGATIVE N The specimen was negative for cytoplasmic antibodies, however additional staining was observed suggesting the presence of Antinuclear Antibodies. Consider requesting order code 249, SANDEEP Screen, IFA with Reflex to Titer and Pattern, or order code 71670, SANDEEP Screen, IFA w/reflex Titer/Pattern, and Reflex to Multiplex 11 Ab [place], if clinically indicated. THIS TEST WAS PERFORMED AT: [facility] [address] [place] [phone] JEAN PAUL LEWIS MD Mitochondrial Ab Titer TNP Smooth Muscle Antibody Reviewed date:04/09/2024 03:01:16 PM Interpretation: Performing Lab:[facility], [address] [place] [phone] Notes/Report: Smooth Muscle Antibody 25 <20 U A Reference Range: <20 U: Negative >or=20 U: [...] type 1. THIS TEST WAS PERFORMED AT: [facility]/[address] [address] SIGRID MOLINA MD,PHD Hepatitis A,B,C Profile Reviewed date:04/02/2024 02:01:41 PM Interpretation: Performing Lab:[facility], [address] [place] [phone] Notes/Report: Hepatitis A Antibody IgM Nonreactive Nonreactive IgM antibodies to HAV not detected; does not exclude early acute or recovered HAV infection. Hepatitis B Surface Antibody NONREACTIVE Nonreactive Nonreactive: < 8 .00 mIU/mL Hepatitis B Core Antibody Nonreactive Nonreactive Hepatitis C Antibody Nonreactive Nonreactive Antibodies to HCV not detected; does not exclude early acute HCV infection. Hepatitis B Surface Antigen Negative Negative Glucose, Whole Blood Reviewed date:04/02/2024 01:59:23 PM Interpretation: Performing Lab:[facility], [address] [place] [phone] Notes/Report: Glucose, Whole Blood 106 60-115 mg/dL N [facility] #: [id number] Complete Blood Count Auto Di ff Reviewed date:10/24/2024 08:44:04 AM Interpretation: Performing Lab:[facility], [address] [place] [phone] Notes/Report: White Blood Count 7.8 4.8-10.8 X10*3/uL N Red Blood Count 4.57 4.20-5.50 X10*6/uL N Hemoglobin 11.9 12.0-16.0 g/dl L Hematocrit 38.6 37.0-47.0 % N Mean Corpuscular Volume 84.5 80.0-98.0 fL N Mean Corpuscular Hemoglobin 26.0 27.0-33.0 pg L Mean Corpuscular HGB Conc 30.8 31.0-35.0 g/dl L Red Cell Distribution Width 15.6 11.0-16.0 % N Platelet Count 199 160-400 X10*3/uL N Mean Platelet Volume 9.6 9.4-12.3 fL N Neutrophils Percent Auto 58.7 45-73 % N Imm Gran Pct Auto 0.5 0.0-0.4 % H Lymphocytes Percent Auto 32.6 20-40 % N Monocytes Percent Auto 4.5 2-11 % N Eosinophils Percent Auto 3.1 0-4 % N Basophils Percent Auto 0.6 0-2 % N NRBC Pct Auto 0.0 0.0-0.2 /100WBC N Neutrophils Absolute Auto 4.6 2.0-8.3 x10*3/uL N Imm Gran Abs Auto 0.04 0.00-0.03 X10*3/uL H Lymphocytes Absolute Auto 2.5 1.2-4.9 X10*3/uL N Monocytes Absolute Auto 0.4 0.1-1.2 X10*3/uL N Eosinophils Absolute Auto 0.2 0.0-0.4 X10*3/uL N Basophils Absolute Auto 0.1 0.0-0.2 X10*3/uL N NRBC Abs Auto 0.000 0.0-0.012 X10*3/uL N Comprehensive Met. Panel Reviewed date:10/24/2024 08:39:47 AM Interpretation: Performing Lab:[facility], [address] [place] [phone] Notes/Report: Sodium 143 135-145 mmol/L N Potassium 3.9 3.3-5.1 mmol/L N Chloride 111 96-108 mmol/L H Carbon Dioxide 26 22-29 mmol/L N Anion Gap 10 12-20 L Blood Urea Nitrogen 12 9-16 mg/dL N Creatinine 0.68 0.5-1.4 mg/dL N Estimated Glomerular Filt Rate > 60 Chronic Kidney Disease: Estimated GFR < 60 mL/min/1.73m2 Severe Kidney Disease: Estimated GFR < 15 mL/min/1.73m2 Glucose Random 86 60-115 mg/dL N Calcium 9.2 8.4-10.2 mg/dL N Bilirubin Total 0.2 0.0-1.0 mg/dL N Aspartate Amino Transferase 24 5-31 U/L N Alanine Aminotransferase 23 0-31 U/L N Total Protein 7.9 6.5-8.0 g/dL N Albumin Level 4.3 3.5-5.0 g/dL N Alkaline Phosphatase 129 39-117 U/L H Lipid Panel Reviewed date:10/24/2024 08:39:21 AM Interpretation: Performing Lab:[facility], [address] [place] [phone] Notes/Report: Triglycerides 147 <150 mg/dL Desirable Triglyceride: [...] 190 mg/dL HDL Cholesterol 33 >40 mg/dL L Desirable HDL: greater than 40 mg/dL Note: This HDL assay may give artificially low results in patients with liver disease. HIV Ab/Ag Reviewed date:10/24/2024 08:38:16 AM Interpretation: Performing Lab:[facility], [address] [place] [phone] Notes/Report: HIV AB/AG Nonreactive Nonreactive HIV-1 p24 [...] limit of detection of this assay. [facility] HIV Ag/Ab Combo assay result and supplemental assay results should be interpreted in conjunction with the patient's clinical presentation, history and other laboratory results. If the results are inconsistent with clinical evidence, additional testing is suggested to confirm the result. US abdomen complete Reviewed date:10/24/2024 08:44:16 AM Interpretation: Performing Lab: Notes/Report: [address] [address] Ultrasound Report Signed Patient: Yuan Waters MR#: [id number] : 1960 Acct:[id number] Age/Sex: 64 / F ADM Date: 10/23/24 Loc: HO.US Attending Dr: Medardo Delgado MD Ordering Physician: Medardo Delgado MD Date of Service: 10/23/24 Procedure(s): US abdomen complete Accession Number(s): [id number] cc: Medardo Delgado MD; Lahsa Castillo MD EXAMINATION: US ABDOMEN COMPLETE CLINICAL [...] in OV> 10/23/2443 DD/ 4 TD/TT: 10/23/24916 Healthcare Customer Service: Reason For Referral Referring Provider First Name Lasha Referring Provider Last Name Vu Armand perez Referring Provider Speciality Internal M edicine [facility]erred Provider Medardo Delgado Jr Referred Address [address] [place] [address],[place] [address],[place], [place],[address], Referred Provider Specialty Gastroentero logy General Notes Kelsi Christianson 2024 09:59:43 AM >requested a [facility] referral from [facility] for visit with dr akins on 08-29-24 Referral Priority Routine Medications Medication SIG (Take, Route, Frequency, Duration) Notes Start Date End Date Status Duloxetine & Lidocaine-Menthol 60 & 5-3 MG & % Therapy Pack as directed Combination Active Docusate Sodium 100 MG Capsule 1 capsule as needed Orally Once a day; Duration: 30 day(s) Active Singulair 10 MG Tablet 1 tablet in the e vening Orally Once a day Active Verapamil HCl 80 MG Tablet 1 tablet Oral ly Three times a day Active Losartan Potassium-HCTZ 50-12.5 MG Tablet 1 tablet Orally Once a day Active Synthroid 75 MCG Tablet 1 tablet Orally Once a day Active Aspir-81 81 MG Tablet Delayed Release 1 tablet Orally Once a day Active Topamax 50 MG Tablet 3 tablet Orally daily Active Levothyroxine Sodium Active Fluticasone Propionate 50 MCG/ACT Suspension USE 2 SPRAYS IN EACH NOSTRIL EVERY DAY Nasal; Duration: 30 Active Toprol XL 100 MG Tablet Extended Release 24 Hour 1 tablet Orally Once a day Active hydrALAZINE HCl 25 MG Tablet 1 tablet Orally three x a day Active Famotidine 40 MG Tablet 1 tablet Orally every 12 hrs; Duration: 30 days 02/26/2019 Active Topiramate 50 MG Tablet TAKE 1 AND 1/2 T ABLETS BY MOUTH AT BEDTIME Oral; Duration: 30 Active DULoxetine HCl 60 MG Capsule Delayed Release Particles TAKE 1 CAPSULE BY MOUTH EVERY MORNING Oral; Duration: 30 Active Simethicone 180 MG Capsule 1 capsule aft er meals and at bedtime as needed Orally Twice a day; Duration: 30 days 08/31/2023 Active Polyethylene Glycol 3350 - Packet 1 packet mixed with 8 ounces of fluid Orally Once a day; Duration: 90 days 02/21/2016 Active Dicyclomine HCl 20 MG Tablet 1 tablet Orally 2-4 times a day; Duration: 30 days Active ClearLax 17 GM/SCOOP Powder 2 scoops in 8 ounces of water Orally once a day; Duration: 30 days 05/24/2022 Active Pepcid 40 MG Tablet 1 Orally b.i.d.; Dur ation: 30 days Active Cymbalta Active Montelukast Sodium 10 MG Tablet TAKE 1 TABLET BY MOUTH EVERY EVENING Oral; Duration: 30 Active Verapamil HCl ER 300 MG Capsule Extended Release 24 Hour 1 capsule Orally Once a day; Duration: 30 day(s) Active Aspirin Low Dose 81 MG Tablet Delayed Release TAKE 1 TABLET BY MOUTH EVERY MORNING Oral; Duration: 30 Active Magnesium Oxide 400 (240 Mg) MG Tablet TAKE 1 TABLET BY MOUTH EVERY MORNING Oral; Duration: 30 Active hydrOXYzine HCl 25 MG Tablet TAKE 1 TABLET BY MOUTH THREE TIMES DAILY NEEDED Oral; Duration: 10 Active metFORMIN HCl ER 500 MG Tablet Extended Release 24 Hour 1 tablet with evening meal Orally Once a day; Duration: 30 day(s) Active Metoprolol Succinate ER 100 MG Tablet Extended Release 24 Hour TAKE 1 TABLET BY MOUTH EVERY EVENING Oral; Duration: 30 Active Hydrocortisone (Perianal) 2.5 % Cream 1 application Externally Twice a day; Duration: 90 days 03/03/2022 Active Furosemide 20 MG Tablet 1 tablet Orally Once a day; Duration: 30 day(s) Active Topiramate ER 50 MG Capsule Extended Release 24 Hour 1 capsule Orally Once a day; Duration: 30 day(s) Active Trulicity 0.75 MG/0.5ML Solution Pen-injector INJECT ONE PEN (=0.75MG) SUBCUTANEOUSLY ONCE A WEEK DIRECTED Subcutaneous; Duration: 28 Active Rosuvastatin Calcium 40 MG Tablet 1 tablet Orally Once a day; Duration: 30 day(s) Active Celecoxib 200 MG Capsule TAKE 1 CAPSULE BY MOUTH TWICE DAILY Oral; Duration: 30 Active Immunizations Vaccine Route Administration Date Status Comme nts Influenza Unknown 12/02/2018 Administered Influenza Unknown 01/15/2020 Administered Influenza Unknown 01/01/2022 Administered Influenza Unknown 08/31/2023 Refused Social History Social History Additional Details Category Social Info Options Details Miscellaneous: Marital status: single single Occupation: unemployed Problems Problem Type SNOMED Code ICD Code Onset Dates Problem Status W/U Status Risk Notes Problem Rectal bleeding (91589539) Rectal bleeding (K62.5) Active confirmed Problem Constipation (53913214) Constipation (K59.00) Active confirmed Problem Gastroesophageal reflux disease (333167005) Gastroesophageal reflux disease (K21.9) Active confirmed Problem Gastroesophageal reflux disease without esophagitis (031825072) Gastroesophageal reflux disease without esophagitis (K21.9) Active confirmed Problem Fatty liver (630481910) Fatty liver (K76.0) Active confirmed Problem Hiatal hernia (60271372) Hiatal hernia (K44.9) Active confirmed Problem Dysphagia (71515547) Dysphagia, unspecified type (R13.10) Active confirmed Problem Abnormal UGI series (R93.3) Active confirmed Problem Irritable bowel syndrome characterized by constipation (005386088) Irritable bowel syndrome with constipation (K58.1) Active confirmed Problem Gastroesophageal reflux disease (873578051) GERD without esophagitis (K21.9) Active confirmed Problem Left upper quadrant pain (822011447) LUQ pain (R10.12) Active confirmed Problem Left lower quadrant pain (229449795) LLQ pain (R10.32) Active confirmed Problem Epigastric mass (164725281) Epigastric mass (R19.06) Active confirmed Vital Signs Blood pressure diastolic 77 mm Hg 08/29/2024 Height 66.5 in 08/29/2024 Blood pressure systolic 111 mm Hg 08/29/2024 Weight 225 lbs 08/29/2024 BMI 35.77 kg/m2 08/29/2024 Encounters Encounter Location Date Provider Diagnosis [facility] Outpatient [address] [place] [phone] 04/02/2024 Medardo Delgado Jr Abnormal UGI series R93.3 [facility] [address] [place] [phone] 08/29/2024 Medardo Delgado Jr Abdominal pain R10.9 ; Gastroesophageal reflux disease without esophagitis K21.9 and Constipation K59.00 [facility] [address] [place] [phone] 03/19/2024 Medardo Delgado Jr [facility] [address] [place] [phone] 04/02/2024 Medardo Danny Cline [facility] [address] [place] [phone] 04/05/2024 Medardo Delgado Jr [facility] [address] [place] [address] 10/24/2024 Medardojosefa Delgado Jr [facility] [address] [place] [address] 10/30/2024 Medardo Delgado Jr Assessments Encounter Date Diagnosis (ICD Code) Assessment Notes Treatment Notes Treatment Clinical Notes Section Notes 08/29/2024 Abdominal pain (ICD-10 - R10.9) At this time, Yuan is doing well. She will continue Pepcid for her acid reflux which is working well. She will continue dicyclomine for her crampy abdominal discomfort and use simethicone as needed for gas. We refilled her MiraLAX and hydrocortisone . She will have upper abdominal imaging with ultrasound. Follow-up will be in 1 year. 04/02/2024 Abnormal UGI series (ICD-10 - R93.3) 08/29/2024 Gastroesophageal reflux disease without esophagitis (ICD-10 [...] 04/13/2020 CREATININE 04/13/2020 CREATININE 01/23/2020 LIVER PROFILE 01/23/2020 LIVER PROFILE 03/14/2024 LIPASE 01/23/2020 IRON + IBC (FE) 03/14/2024 [...] GI ENDOSCOPY 03/14/2024 Next Appt Details Provider Name:Medardojosefa vallecillo , 08/14/2025 03:35:00 PM, [address], [address], [place], [address], Insurance Providers Payer Name Payer Address Payer Phone Subscriber Number Group Number Insured Name Patient Relationship to Insured Coverage Start Date Coverage End Date [facility] [address] [place] [phone] [id number] YUAN LR Self - patient is the insured Medical (General) History Medical History History ICD Code hypertension obesity Hypothyroidism asthma arthritis SANDEEP + colonoscopy 06/26/19, 1 adenoma, five-yea r followup recommended Gastroesophageal reflux dise [facility], EGD/03/23, no Santos's esophagus or H. pylori.EGD 03/26, no H. pylori, Santos's esophagus, or celiac disease. Obstructive sleep apnea type II diabetes Surgical History Surgery Date(Month/Year) breast biopsy tubal ligation cholecystectomy knee surgery-right
--- OUTSIDE RECORDS SUMMARY | 2025-03-17 04:21 | XMS_ITS | Encounter Summary ---
Author Organization [employer] Address [address] [facility] [place] [address] Care Team Providers Care Mallet And Die Cutter Name Role Phone Lasha Marrufo MD Primary Care Provide r Farzad Sandhu MD Unavailable [phone] Reason for Visit * Reason Onset Date Comments tooth fell off partial again 11/21/2023 Encounter Details Date Type Department Care Team (Late st Contact Info) Description 11/21/2023 Telephone [facility] [address] [place] [address] Jeanne Arreola, DDS [address], [place] [phone] tooth fell off partial again Social History [...] Description 03/21/2025 1:00 PM EST Medication Management [facility] [address] [place] [address] Violet Narvaez, PharmD [address] [place] [address] documented as of this encounter Goals Goal [...] documented as of this encounter Care Teams Mallet And Die Cutter Relationship Specialty Start Date End Date Lasha Marrufo MD [address] [place], [place] [phone] PCP - General Internal Medicine 12/25/13 Farzad Sandhu MD [address] [place] [address] Cardiology 11/08/24 documented as of this encounter
--- OUTSIDE RECORDS SUMMARY | 2025-03-17 04:21 | XMS_ITS | Encounter Summary ---
Author Organization [employer] Address [address] [place] [address] [address] [place] [address] Care Team Providers Care General Purchasing Agent Name Role Phone Lasha Marrufo MD Primary Care Provide r Farzad Sandhu MD Unavailable [phone] Encounter Details Date Type Department Care Team (Late st Contact Info) Description 09/05/2022 Orders Only [facility] [address] [place] [id number] Elsa Julien LPN Social History Tobacco Use [...] Description 03/21/2025 1:00 PM EST Medication Management [facility] [address] [place] [id number] Violet Narvaez, PharmD [address] [place] [address] documented as of this encounter Visit Diagnoses Not on filedocumented in this encounter Care Teams General Purchasing Agent Relationship Specialty Start Date End Date Lasha Marrufo MD [address] [place] [phone] PCP - General Internal Medicine 12/25/13 Farzad Sandhu MD [address] [place] [address] Cardiology 11/08/24 documented as of this encounter
--- OUTSIDE RECORDS SUMMARY | 2025-03-17 04:21 | XMS_ITS | Encounter Summary ---
Author Organization [employer] Address [address] [facility] [address] [place] [address] Care Team Providers Care International Representative Name Role Phone Lasha Marrufo MD Primary Care Provide r Farzad Sandhu MD Unavailable [phone] Reason for Visit * Reason Comments Med Refill Encounter Details Date Type Department Care Team (Late st Contact Info) Description 10/28/2024 Refill [facility] [address] [place], [place] [phone] Lasha Marrufo MD [address] [place], [place] [phone] Acquired hypothyroidism; Mild intermittent asthma without complication [...] Description 03/21/2025 1:00 PM EST Medication Management [facility] [address] [place] [address] Violet Narvaez, PharmD [address] [place] [address] documented as of this encounter Goals Goal [...] documented as of this encounter Care Teams International Representative Relationship Specialty Start Date End Date Lasha Marrufo MD [address] [place] [address] PCP - General Internal Medicine 12/25/13 Farzad Sandhu MD [address] [place] [address] Cardiology 11/08/24 documented as of this encounter
--- OUTSIDE RECORDS SUMMARY | 2025-03-17 04:21 | XMS_ITS | Encounter Summary ---
Author Organization [employer] Address [address] [facility] 7t [place] [address] Care Team Providers Care Hot Head Machine Operator Name Role Phone Lasha Marrufo MD Primary Care Provide r Farzad Sandhu MD Unavailable [phone] Reason for Visit * Reason Comments Med Refill Encounter Details Date Type Department Care Team (Late st Contact Info) Description 10/27/[address] [facility] [address] [place], [place] [phone] Lasha Marrufo MD [address] [place], [place] [phone] Acquired hypothyroidism; Mild intermittent asthma without complication [...] Description 03/21/2025 1:00 PM EST Medication Management [facility] [address] [place] [address] Violet Narvaez, PharmD [address] [place] [address] documented as of this encounter Goals Goal [...] as of this encounter Care Teams Hot Head Machine Operator Relationship Specialty Start Date End Date Lasha Marrufo MD [address] [place] [address] PCP - General Internal Medicine 12/25/13 Farzad Sandhu MD [address] [place] [address] Cardiology 11/08/24 documented as of this encounter
--- OUTSIDE RECORDS SUMMARY | 2025-03-17 04:21 | XMS_ITS | Encounter Summary ---
Author Organization [employer] Address [address] [place] [address] 7[address] [place] [address] Care Team Providers Care Scale Agent Name Role Phone Lasha Marrufo MD Primary Care Provide r Farzad Sandhu MD Unavailable [phone] Encounter Details Date Type Department Care Team (Late st Contact Info) Description 08/22/2022 Abstract [facility] [address] [place], [place] [phone] Lasha Marrufo MD [address] [place] [address] Social History Tobacco Use Types Packs/Day Years [...] [facility] [address] [place], [place] [phone] Violet Narvaez, PharmD [address] [place], [place] [phone] documented as of this encounter Procedures Procedure [...] on filedocumented in this encounter Care Teams Scale Agent Relationship Specialty Start Date End Date Lasha Marrufo MD [address] [place] [address] PCP - General Internal Medicine 12/25/13 Farzad Sandhu MD [address] [place] [address] Cardiology 11/08/24 documented as of this encounter
--- OUTSIDE RECORDS SUMMARY | 2025-03-17 04:21 | XMS_ITS | Encounter Summary ---
Author Organization [facility] Address [address] [place] [address] Phone Care Team Providers Care Cat Hooker Name Role Phone Pcp, Unknown Primary Care Provider Unavailabl e Encounter Details Date Type Department Care Team (Late st Contact Info) Description 08/29/2019 Ancillary Orders [facility] [address] [place] [address] Landy Rossi PA [address] [place] [id number] [email or web address] Social History Tobacco Use Types Packs/Day [...] Palpitations documented in this encounter Care Teams Cat Hooker Relationship Specialty Start Date End Date Pcp, Unknown PCP - General 08/29/19 documented as of this encounter Additional Source Comments The information contained in this document represents components of the legal health record. It is not the complete legal health record.[facility]
--- OUTSIDE RECORDS SUMMARY | 2025-03-17 04:21 | XMS_ITS | Encounter Summary ---
Author Organization [employer] Address [address] [place] [address] [address] [address] Care Team Providers Care Plug Assembler Name Role Phone Lasha Marrufo MD Primary Care Provide r Farzad Sandhu MD Unavailable [phone] Reason for Visit * Reason Comments Med Refill Encounter Details Date Type Department Care Team (Late st Contact Info) Description 03/09/2022 Refill [facility] [address] [place] [phone] Lasha Marrufo MD [address] [place] [address] Acute migraine (Primary Dx) Social History Tobacco [...] Description 03/21/2025 1:00 PM EST Medication Management [facility] [address] [place] [phone] Violet Narvaez, PharmD [address] [place] [address] documented as of this encounter Visit Diagnoses Diagnosis Acute migraine- Primary documented in this encounter Care Teams Plug Assembler Relationship Specialty Start Date End Date Lasha Marrufo MD [address] [place] [address] PCP - General Internal Medicine 12/25/13 Farzad Sandhu MD [address] [place] [address] Cardiology 11/08/24 documented as of this encounter
--- OUTSIDE RECORDS SUMMARY | 2025-03-17 04:21 | XMS_ITS | Encounter Summary ---
Author Organization [employer] Address [address] [place] [address] [address] [address] Care Team Providers Care Bench Assembler Electrical Name Role Phone Lasha Marrufo MD Primary Care Provide r Farzad Sandhu MD Unavailable [phone] Reason for Visit * Reason Comments Med Refill Encounter Details Date Type Department Care Team (Late st Contact Info) Description 09/08/2022 Refill [facility] [address] [place], [place] [phone] Lasha Marrufo MD [address] [place] [address] Acute non intractable tension-type headache; Anxiety Social [...] Description 03/21/2025 1:00 PM EST Medication Management [facility] [address] [place] [address] Violet Narvaez, PharmD [address] [place] [address] documented as of this encounter Visit Diagnoses Diagnosis Acute non intractable tension-type headache Anxiety Anxiety state, unspecified documented in this encounter Care Teams Bench Assembler Electrical Relationship Specialty Start Date End Date Lasha Marrufo MD [address] [place] [address] PCP - General Internal Medicine 12/25/13 Farzad Sandhu MD [address] [place] [address] Cardiology 11/08/24 documented as of this encounter
--- OUTSIDE RECORDS SUMMARY | 2025-03-17 04:21 | XMS_ITS | Encounter Summary ---
Author Organization [email or web address] Address [address] [facility] 7t [place] [address] Care Team Providers Care Hospice Patient Care Secretary Name Role Phone Lasha Marrufo MD Primary Care Provide r Farzad Sandhu MD Unavailable [phone] Reason for Visit * Reason Onset Date Comments Nurse Triage 07/04/2024 Encounter Details Date Type Department Care Team (Late st Contact Info) Description 07/04/2024 Telephone [facility] MEDICINE [address] [place], [place] [phone] Lasha Marrufo MD [address] [place] [address] Nurse Triage Social History Tobacco Use Types [...] EDT Triage call returned with BLS # [id number] [employer]. Patient reports dizziness noted with standing. [...] You become worse * Telephone Encounter - Ceciliajudy Cee - 07/04/2024 1:39 PM EDT Symptom: Dizziness Outcome: Talk to a nurse or provider within 15 minutes Reason: Trouble walking The caller accepted this outcome. documented in this encounter Plan of Treatment Upcoming Encounters Date Type Department Care Team (Late st Contact Info) Description 03/21/2025 1:00 PM EST Medication Management [facility] MEDICINE [address] [place] [address] Violet Narvaez, DaynaD [address] [place] [address] documented as of this encounter Goals Goal [...] documented as of this encounter Care Teams Hospice Patient Care Secretary Relationship Specialty Start Date End Date Lasha Marrufo MD [address] [place] [address] PCP - General Internal Medicine 12/25/13 Farzad Sandhu MD [address] [place] [address] Cardiology 11/08/24 documented as of this encounter
--- OUTSIDE RECORDS SUMMARY | 2025-03-17 04:21 | XMS_ITS | Encounter Summary ---
Author Organization [employer] Address [address] [facility] [address] [address] Care Team Providers Care Training Development Director Name Role Phone Lasha Marrufo MD Primary Care Provide r Farzad Sandhu MD Unavailable [phone] Encounter Details Date Type Department Care Team (Late st Contact Info) Description 04/06/2022 Orders Only [facility] [address] [place] [address] Eliz Adorno LPN Social History Tobacco Use [...] Description 03/21/2025 1:00 PM EST Medication Management [facility] MEDICINE [address] [place] [address] Violet Narvaez, PharmD [address] [place] [address] documented as of this encounter Visit Diagnoses Not on filedocumented in this encounter Care Teams Training Development Director Relationship Specialty Start Date End Date Lasha Marrufo MD [address] [place] [address] PCP - General Internal Medicine 12/25/13 Farzad Sandhu MD [address] [place] [address] Cardiology 11/08/24 documented as of this encounter
--- OUTSIDE RECORDS SUMMARY | 2025-03-17 04:21 | XMS_ITS | Clinical Summary ---
Author Organization [facility] Address [address] [place] [address] [place] [phone] Phone Care Team Providers Care Gas Specialist Name Role Phone Pcp, Unknown Primary Care [...] file Medical Devices Not on file Insurance [facility] COOPERATIVE C3 ACO C3 ACO C3 ACO C3 ACO ACO C3 ACO C3 ACO C3 ACO [facility] C3 ACO Care Teams Gas Specialist Relationship Specialty Start Date End Date Pcp, Unknown PCP - General 08/29/19 Additional Source Comments The information contained in this document represents components of the legal health record. It is not the complete legal health record.[facility]
--- OUTSIDE RECORDS SUMMARY | 2025-03-17 04:21 | XMS_ITS | Encounter Summary ---
Author Organization [employer] Address [address] [facility] [address] [place] [address] Care Team Providers Care Diamond Die Driller Name Role Phone Lasha Marrufo MD Primary Care Provide r Farzad Sandhu MD Unavailable [phone] Reason for Visit * Reason Onset Date Comments appt PA approved 12/22/2023 Encounter Details Date Type Department Care Team (Late st Contact Info) Description 12/22/2023 Telephone [facility] [address] [place] [address] Jeanne Arreola, DDS [address] [place] [address] appt PA approved Social History Tobacco Use [...] Description 03/21/2025 1:00 PM EST Medication Management [facility] [address] [place] [address] Violet Narvaez, PharmD [address] [place] [address] documented as of this encounter Goals Goal [...] documented as of this encounter Care Teams Diamond Die Driller Relationship Specialty Start Date End Date Lasha Marurfo MD [address] [place] [address] PCP - General Internal Medicine 12/25/13 Farzad Sandhu MD [address] [place] [address] Cardiology 11/08/24 documented as of this encounter
--- OUTSIDE RECORDS SUMMARY | 2025-03-17 04:21 | XMS_ITS | Encounter Summary ---
Author Organization [employer] Address 75 [facility] [address] [place] [address] Care Team Providers Care Manager International Name Role Phone Lasha Marrufo MD Primary Care Provide r Farzad Sandhu MD Unavailable [phone] Reason for Visit * Reason Onset Date Comments Referral 10/21/2024 Encounter Details Date Type Department Care Team (Late st Contact Info) Description 10/21/[address] [facility] MEDICINE [address] [place], [place] [phone] Lasha Marrufo MD [address] [place] [address] Referral Social History Tobacco Use Types Packs/Day [...] [place] a [place] wood eye las[place]. Any questions contact pt at [phone]. documented in this encounter Plan of Treatment Upcoming Encounters Date Type Department Care Team (Late st Contact Info) Description 03/21/2025 1:00 PM EST Medication Management [facility] MEDIC[facility] [address] [place] [address] Violet Narvaez, PharmD [address] [place] [address] documented as of this encounter Goals Goal [...] as of this encounter Care Teams Manager International Relationship Specialty Start Date End Date Lasha Marrufo MD [address] [place] [address] PCP - General Internal Medicine 12/25/13 Farzad Sandhu MD [address] [place] [address] Cardiology 11/08/24 documented as of this encounter
--- OUTSIDE RECORDS SUMMARY | 2025-03-17 04:22 | XMS_ITS | Encounter Summary ---
Author Organization [employer] Address [address] [facility] [address] [address] Care Team Providers Care Cost And Sales Record Supervisor Name Role Phone Lasha Marrufo MD Primary Care Provide r Farzad Sandhu MD Unavailable [phone] Encounter Details Date Type Department Care Team ([facility] st Contact Info) Description 02/19/2024 Telephone [facility] MEDICINE [address] [place], [place] [phone] Lasha Marrufo MD [address] [place] [address] Social History Tobacco Use Types Packs/Day Years [...] Description 03/21/2025 1:00 PM EST Medication Management [facility] MEDICINE [address] [place] [address] Violet Narvaez, PharmD [address] [place] [address] documented as of this encounter Goals Goal [...] documented as of this encounter Care Teams Cost And Sales Record Supervisor Relationship Specialty Start Date End Date Lasha Marrufo MD [address] [place] [address] PCP - General Internal Medicine 12/25/13 Farzad Sandhu MD [address] [place] [address] Cardiology 11/08/24 documented as of this encounter
--- OUTSIDE RECORDS SUMMARY | 2025-03-17 04:22 | XMS_ITS | Clinical Summary ---
Author Organization [facility] [employer] [facility] [employer] Address [address] [place] [address] [address] [place] [address] Care Team Providers Care Ship Surveyor Name Role Phone Lasha Marrufo MD Primary Care Provide r Farzad Sandhu MD Unavailable [phone] Allergies Active Allergy Reactions Criticality Noted Date Comments Acetaminophen 05/26/2016 Codeine Unknown 05/26/2016 Pseudoephedrine 06/29/2022 Shellfish Allergy 10/03/2022 Medications * This document contains information received from the source organization and may not represent a complete record from that organization. aspirin (ASPIR) 81 MG EC tablet Take 81 mg by mouth in the morning. Active topiramate 50 MG tablet Take 1 tablet by mouth at bed time. Active hydrOXYzine HCl (Atarax) 25 MG tabletIndications :Anxiety TAKE 1 TABLET BY MOUTH THREE TIMES DAILY NEEDED 30 tablet 3 023 Active Blood Glucose Monitoring Suppl (Xtreme Power Blood Glucose) w/Device kitIndications:Ty pe 2 diabetes [...] 1 PUFF FOUR TIMES DAILY FOR ASTHMA 11/15/2 023 Active verapamil ER (Verelan PM) 300 [...] ATERIAL ES ALTO) Active TRUEplus Lancets 33G [facility] TEST BLOOD SUGAR TWICE DAILY Active magnesium oxide (Mag-Ox) 400 (240 Mg) MG tablet Take 400 mg by mouth in the morning. Active trospium (Sanctura) 20 MG tablet TAKE 1 TABLET BY MOUTH EVERY DAY TOMCAMELIA ALGUNAS HORAS ANTES DE DORMIR Active Simethicone Ultra Strength 180 MG capsule TAKE 1 CAPSULE BY MOUTH THREE TIMES DAILY AFTER MEALS AND AT BEDTIME NEEDED Active polyethylene glycol, PEG, 3350 (HM ClearLax) 17 GM/SCOOP powder MIX 2 SCOOP IN 8 OUNCES OF WATER AND DRINK ONCE DAILY 510 g 3 024 Active metroNIDAZOLE (Metrogel) 0.75 % vaginal gel [...] AND IN THE EVENING 60 tablet 2 02/21/20 25 4:13 PM EST 025 Active DULoxetine (Cymbalta) [address] capsule TAKE 1 CAPSULE BY MOUTH EVERY MORNING 30 capsule 5 02/21/20 25 4:13 PM EST 025 Active Dulaglutide (Trulicity) 0.75 MG/0.5ML solution auto-injector Inject 0.75 mg under the skin 1 (one) time per week. 2 mL 1 03/06/20 25 4:00 PM EST 025 Active montelukast (Singulair) 10 MG tabletIndications :Mild intermittent asthma without complication TAKE 1 TABLET BY MOUTH EVERY EVENING 90 tablet 1 025 Active ipratropium-albut saray (Duo-Neb) 0.5-2.5 mg/3 mL nebulizer solution INHALE 1 AMPULE USING A NEBULIZER FOUR TIMES DAILY NEEDED FOR WHEEZING OR FOR COUGH 90 mL 3 025 Active nitroglycerin (Nitrostat) 0.4 MG SL tabletIndications :Longstanding persistent atrial fibrillation (CMS/HCC) ([facility]) Place 1 tablet (0.4 mg) under the tongue every 5 (five) minutes if needed for chest pain. 25 tablet 02/21/20 25 4:13 PM EST 025 Active varenicline (Chantix) 1 MG tabletIndications :Smoker Take 1 tablet (1 mg) by mouth 2 times daily. Take with full glass of water. 60 tablet 1 12/04/20 25 4:00 PM EST 2025 Active methocarbamol (Robaxin) 750 MG tabletIndications :Chronic midline low back pain without sciatica Take 1 tablet (750 mg) by mouth if needed in the morning, at noon, and at bedtime for muscle spasms. 30 tablet 02/21/20 25 4:13 PM EST Active Diclofenac Sodium 1 % gelIndications:Ch ronic midline low back pain without sciatica Use to affected area BID 20 g 3 02/21/20 25 4:13 PM EST Active butalbital-acetam inophen-caffeine 50-325-40 MG tabletIndications :Acute non intractable tension-type headache TAKE 1 TABLET BY MOUTH EVERY DAY FOR HEADACHE MAY REPEAT IN 12 HOURS NEEDED 20 tablet Active cyclobenzaprine (Flexeril) 5 MG tabletIndications :Spasm of muscle TAKE 1 TABLET BY MOUTH THREE TIMES DAILY NEEDED FOR MUSCLE SPASMS 30 tablet 025 2024 Discontinued(T herapy completed) butalbital-acetam inophen-caffeine 50-325-40 MG tabletIndications :Acute non intractable tension-type headache TAKE 1 TABLET BY MOUTH ONCE DAILY FOR HEADACHE. MAY REPEAT IN 12 HOURS NEEDED 20 tablet 025 2024 Discontinued(R eorder (will not trigger notification to Pharmacy)) varenicline (Chantix) 0.5 MG tabletIndications :Smoker TAKE 1 TABLET BY MOUTH TWICE DAILY WITH A FULL GLASS OF WATER 60 tablet 1 025 2024 Discontinued nitroglycerin (Nitrostat) 0.[address] 0.6 mg under the tongue every 5 (five) minutes if needed for chest pain. 2024 Discontinued(R eorder (will not trigger notification to Pharmacy)) butalbital-acetam inophen-caffeine 50-325-40 MG tabletIndications :Acute non intractable tension-type headache TAKE 1 TABLET BY MOUTH ONCE DAILY FOR HEADACHE. MAY REPEAT IN 12 HOURS NEEDED 20 tablet 02/21/20 25 4:13 PM EST 025 2024 Discontinued Active Problems Problem Noted Date Diagnosed Date Depressed mood 02/18/2025 Assessment & Plan (02/18/2025 4:06 PM EST): Depressed mood present, possibly predating use of smoking cessation medication. Social isolation and lack of family support noted as contributing factors. - Offered referral to in-house counseling team for support and strategies to address mood and coping. Patient agreed to speak with a counselor. Discussed potential participation in day programs for additional support, but patient declined. Will facilitate connection with counseling services. - Risks and side effects: Discussed that smoking cessation medication may worsen depressive symptoms in some individuals.Plan: refer to our [facility] clinician Asthma with COPD ([facility]) 02/18/2025 Assessment & Plan (02/18/2025 4:08 PM EST): COPD with worsening spirometry, attributed to ongoing tobacco use. - Increased dose of varenicline (Chantix) to 1 mg twice daily for smoking cessation. Reinforced importance of complete smoking cessation. Encouraged continued efforts to reduce cigarette consumption. Discussed that continued smoking is directly correlated with progressive decline in pulmonary function. - Risks and side effects: Discussed that varenicline may worsen depressive symptoms. Under the care of Vice President Process, last seen 02/11/2025 Chronic low back pain 02/18/2025 Assessment & Plan (02/18/2025 4:12 PM EST): Pt seen in the ER Given Methocarbamol in the ER will refill Methocarbamol 750 mg q 8 hrs On exam No new neurological deficits noted. - Prescribed metocarbamol for short-term use as needed for muscle pain. Advised not to use metocarbamol for more than a few days. Discussed possible use of topical diclofenac gel for knee pain. Declined physical therapy due to worsening symptoms. - Risks and side effects: Advised that prolonged use of metocarbamol or NSAIDs may affect gastrointestinal system. Moderate episode of recurren t major depressive disorder ([facility]) 02/18/2025 Atrial fibrillation ([facility]) 11/06/2024 Assessment & Plan (02/18/2025 4:10 PM EST): Newly diagnosed Under the care of Cardiology last note 11/18/2024 On Eliquis Longstanding atrial fibrillation managed by boring and filling machine operator. Undergoing cardiac procedure in the near future per her report Provided refill of sublingual nitroglycerin for angina as requested Advised that if she has chest pain this should be communicated to boring and filling machine operator for further evaluation and management. Assessment & Plan (12/10/2024 1:23 PM EDT): Newly diagnosed Under the care of Cardiology last note 11/18/2024 On Eliquis Assessment & Plan (11/06/2024 6:47 PM EDT): Chadvasc 3 points Rate controlled, asymptomatic Start eliquis risk vs benefits discussed, told to discuss with boring and filling machine operator if watchman is indicated Pelvic pain 09/05/2024 Assessment & Plan (12/10/2024 1:19 PM EDT): Patient with c/o pelvic pain and recurrent Bacterial vaginosis. Pt requesting to see a Cupola Melter Helper Pelvic US 11/08/2024 was normal Seen by CONING MACHINE OPERATOR 11/26/2024 Dr Ochoa, did not find anything specific Assessment & Plan (09/05/2024 2:34 PM EDT): Patient with c/o pelvic pain and recurrent Bacterial vaginosis. Pt requesting to see a Cupola Melter Helper Plan: Obtain Pelvic US Referral to CONING MACHINE OPERATOR Heart murmur 09/05/2024 Assessment & Plan (12/10/2024 [...] Smear: NL 09/2021 will need a repeat [id number] Colonoscopy: 06/2019 Dr Delgado, Tubular adenoma Vaccines: Td Pt claims she had one in [place] in 2013. Assessment & Plan (10/12/2023 11:21 AM EDT): Mammogram: 08/2023 Normal Pap Smear: NL 09/2021 will need a repeat [id number] Colonoscopy: 06/2019 Dr Delgado, Tubular adenoma Vaccines: Td Pt claims she had one in [place] in 2013. Assessment & Plan (07/18/2023 1:58 PM EDT): Mammogram: 04/12/2023 Normal Pap Smear: NL 09/2021 will need a repeat [id number] Colonoscopy: 06/2019 Dr Delgado, Tubular adenoma Vaccines: [...] Moderate persistent asthma 04/04/2023 Assessment & Plan (02/18/2025 1:07 PM EST): Under the care of Vice President Process, last seen 02/11/2025 He mentioned: Spirometry compared to spirometry in 2020 shows there is significant decline in the numbers. Unfortunately continues to smoke Discussed with her the risk of smoking Assessment & Plan (02/13/2024 11:40 AM EST): Under the care of Vice President Process Unfortunately continues to smoke, not interested in quitting Discussed with her the risk of smoking Obstructive sleep apnea syndrome 09/28/2022 Tubular adenoma of colon 09/28/2022 Assessment & Plan (02/18/2025 4:09 PM EST): Tubular adenoma of colon previously identified. No evidence of malignancy on last colonoscopy in 2019. Hemorrhoids likely source of rectal bleeding. - Placed referral to Dr. Delgado for repeat colonoscopy, as due in 2024 (5 years after last procedure). Advised need for surveillance colonoscopy every 5 years due to tubular adenoma history. Assessment & Plan (07/18/2023 1:55 PM EDT): Pt underwent a Colonoscopy by Dr Delgado june 2019 that showed a Tubular adenoma, will need a repeat in 2024 Type 2 diabetes mellitus without complications 0 09/28/2022 Assessment & Plan (02/18/2025 1:10 PM EST): Pt here for a f/u regarding her Diabetes DM controlled Hgb A1c 02/18/2025: from 6.1 Pt is currently on Metformin XR 500 mg 2 tabs po BID and Trulicity 0.75 q week Eye exam : 05/31/2024 [facility] Microalbumin ordered Pt on an LEXII inhibitor/ARB Foot check risk if zero On Asa 81 mg po daily Plan: Continue current regimen Pt advised to: adhere to diabetic diet check your blood sugars regularly check your feet on a daily basis. f/u with me in 3 months Assessment & Plan (12/10/2024 1:25 PM EDT): Pt here for a f/u regarding her Diabetes DM controlled Hgb A1c 12/10/2024: 6.1 Pt is currently on Metformin XR 500 mg 2 tabs po BID and Trulicity 0.75 q week Eye exam : 05/31/2024 [facility] Microalbumin ordered Pt on [...] 0.75 q week Eye exam : 05/31/2024 [facility] Microalbumin ordered Pt on [...] [facility] Assessment & Plan (02/18/2025 1:10 PM EST): Followed at [facility] center Ongoing anti-VEGF injections right eye (OD), stopped left eye (OS) years ago Assessment & Plan (10/12/2023 9:32 AM EDT): [...] weight loss. Smoker 01/17/2014 Assessment & Plan (02/18/2025 4:11 PM EST): Ongoing tobacco use with reduction in daily consumption. Experiencing nausea and headache with smoking. - Increased varenicline (Chantix) dose to 1 mg twice daily to support cessation. Reinforced importance of quitting smoking completely. - Risks and side effects: Discussed that varenicline may worsen depressive symptoms. Assessment & Plan (12/10/2024 1:35 PM EDT): [...] Class 2 obesity 09/23/2013 Assessment & Plan (02/18/2025 1:11 PM EST): Patient has been counseled and educated about diet and exercise. Personal goal of weight loss discussedPatient has comorbidity of: DM Assessment & Plan (10/12/2023 9:33 AM EDT): Patient has been counseled and educated about diet and exercise. 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 Date Type Department Care Team Description 03/14/2025 Telephone [facility] [address] [place] [address] Lasha Marrufo MD Referral 03/14/2025 Refill [facility] [address] [place], [place] [id number] Lasha Marrufo MD 03/13/2025 Refill [facility] [address] [place] [address] Lasha Marrufo MD Acute non intractable tension-type headache 02/18/2025 1:15 PM EST Office Visit [facility] [address] [place] [address] Lasha Marrufo MD Moderate persistent asthma without complication (Primary Dx); Depressed mood; Type 2 diabetes mellitus without complication, without long-term current use of insulin (HCC); Exudative age-related macular degeneration of both eyes with inactive choroidal neovascularization (CMS/HCC) (HCC); Asthma with COPD (CMS/HCC) (HCC); Class 2 obesity; Dietary counseling; Exercise counseling; Tubular adenoma of colon; Longstanding persistent atrial fibrillation (CMS/HCC) (HCC); Smoker; Chronic midline low back pain without sciatica; Acute non intractable tension-type headache 02/18/2025 Orders Only [facility] [address] [place] [address] Lasha Marrufo MD Smoker (Primary Dx); Asthma with COPD ([facility]CC) (HCC) 02/18/2025 Travel 02/17/2025 Telephone [facility] [address] [place] [address] Lasha Marrufo MD chart prep 02/14/2025 Telephone [facility] [address] [place] [address] Lasha Marrufo MD 02/13/2025 Telephone [facility] [address] [place] [address] Lasha Marrufo MD Called back request 02/01/2025 Orders Only GENERIC EXTERNAL DATA DEPARTMENT Provider, Generic External Data 01/27/2025 Refill [facility] [address] [place] [address] Lasha Marrufo MD Smoker 01/25/2025 Refill [facility] [address] [place] [address] Lasha Marrufo MD Smoker 01/20/2025 Refill [facility] [address] [place] [address] Lasha Marrufo MD Acute non intractable tension-type headache; Mild intermittent asthma without complication 01/20/2025 Refill [facility] [address] [place] [address] Lasha Marrufo MD Mild intermittent asthma without complication 01/20/2025 Refill [facility] [address] [place] [address] Eliz eJrome DO Type 2 diabetes mellitus without complications ([facility]) 01/15/2025 Refill [facility] [address] [place] [address] Humza Morfin MD 01/15/2025 Refill [facility] [address] [place], [place] [id number] Lasha Marrufo MD 12/30/2024 Orders Only [facility] External Provider, [facility] 12/22/2024 Refill [facility] [address] [place] [address] Lasha Marrufo MD from Last 3 Months [...] Answer Date Recorded Patient Health Questionnaire-9 Score 12 02/24/2025 Patient Health Questionnaire-9 Score 12 02/24/2025 Last PHQ-9: Questionnaire Data Not on file 1 04/26/2024 Housing Stability Answer Date Recorded What is your housing situation today? I have ara urban 02/18/[address] you li ve. Do you have problems with any of the following? None of the above 02/18/2025 Food Insecurity Answer Date Recorded Within the past 12 months, y ou worried that your food would run out before you got money to buy more: Never True 02/18/2025 Within the past 12 months,th e food [...] shut off services in your home? No 02/18/2025 Depression Answer Date Recorded Patient Health Questionnaire-2 Score 4 02/24/2025 Internet Access Answer Date Recorded Internet Access Q1 Yes 02/18/2025 Internet Access Q2 Not on file 02/18/2025 Comments No Sex and Gender Information Value Date Recorded Sex Assigned at Female 01/31/2022 10:22 AM EDT Legal Sex Female 10:22 AM EDT Gender Identity Female 01/31/2022 10:22 AM EDT Sexual Orientation Straight 01/31/2022 10 :22 AM EDT Last Filed Vital Signs Vital Sign Reading Time Taken Comments Blood Pressure 132/72 02/18/2025 1:08 PM EST Pulse 80 02/18/2025 1:08 PM EST Temperature 36.2 C (97.2 F) 02/18/2025 1:08 PM EST Respiratory Rate 17 02/18/2025 1:08 PM EST Oxygen Saturation 99% 12/10/2024 1:11 PM EDT Inhaled Oxygen Concentration - - Weight 102 kg (224 lb 9.6 oz) 02/18/2025 1:08 PM EST Height 167.6 cm (5' 6 ) 02/18/2025 1:08 PM EST Body Mass Index 36.25 02/18/2025 1:08 PM EST Plan of Treatment Upcoming Encounters Date Type Department Care Team (Late st Contact Info) Description 03/21/2025 1:00 PM EST Medication Management [facility] [address] [place] [address] Violet Narvaez, PharmD [address] [place] [address] Health Maintenance Due Date Last Done Comments CT Colonography 1961 Dental Prophylaxis 1961 FIT DNA/Cologuard 1961 FIT 1961 FOBT 1960 Sigmoidoscopy 1961 Diabetes: Foot Exam 1971 Alcohol/Substance Use Screening 1973 Hepatitis A Vaccines (1 of 2 - Risk 2-dose series) 1980 RSV Patients and Patients Aged 60 years or older (1 - Risk 50-74 years 1-dose series) 2011 Zoster Vaccines (1 of 2) 2011 Dental X-Ray: Bitewings 02/26/2015 02/25/2014 Pneumococcal Vaccine: 50+ Years (2 of 2 - PCV) 07/02/2015 07/01/2014 Hepatitis B Vaccines (1 of 3 - Risk 3-dose series) 2021 Diabetes: Urine Protein Screening 06/30/2023 06/29/2022 Dental Oral Exam 04/12/2024 10/10/2023, 02/25/2014 Colonoscopy 06/25/2024 06/26/2019 Colorectal Cancer Screening 06/25/2024 Eye Exam 09/09/2024 09/09/2022, 12/2022, 09/09/2022, Additional history exists COVID-19 Vaccine ( season) 2024 06/29/2020, 06/01/2020 Influenza Vaccine (#1) 2024 , 02/15/2022, 01/15/2020, Additional history exists SDOH Screening 02/12/2025 02/13/2024 Diabetes: Hemoglobin A1C 03/11/2025 025, 09/05/2024, 02/13/2024, Additional history exists Depression Monitoring 08/24/2025 02/24/2025, 025 Mammogram 08/29/2025 08/29/2024, 08/02, 04/12/2023, Additional history exists Lipid Panel 10/23/2025 10/23/2024, 08/02, 06/29/2022, Additional history exists Tobacco Screening 12/10/2025 12/10/2024 Disability Screening 02/18/2026 02/18/2025 Dental X-Ray: Full Mouth 10/10/2026 10/10/2023, 02/02 [...] manage nicotine dependency General No Willa Chaparro Help patients manage their type 2 diabetes Care Plan Help patients manage their type 2 diabetes No Maria Esther Guillaume Weekly blood pressure task Care Plan Weekly blood pressure task No Maria Esther Guillaume Help patients manage their type 2 diabetes Care Plan Help patients manage their type 2 diabetes No Maria Esther Guillaume Patient has chronic kidney disease Care Plan Patient has chronic kidney disease No Maria Esther Guillaume Weekly blood pressure task Care Plan Weekly blood pressure task No Maria Esther Guillaume Patient has chronic kidney disease Care Plan Patient has chronic kidney disease No Maria Esther Guillaume Weekly blood pressure task Care Plan Weekly blood pressure task No Nancy Chopra Weekly blood pressure task Care Plan Weekly blood pressure task No Nancy Chopra Patient has chronic kidney disease Care Plan Patient has chronic kidney disease No Nancy Chopra Patient has chronic kidney disease Care Plan Patient has chronic kidney disease No Nancy Chopra Weekly blood pressure task Care Plan Weekly blood pressure task No Isadora Biswas MA Weekly blood pressure task Care Plan Weekly blood pressure task No Isadora Biswas [place] Patient has chronic kidney disease Care Plan Patient has chronic kidney disease No Isadora Biswas [place] Patient has chronic kidney disease Care Plan Patient has chronic kidney disease No Isadora Biswas MA Weekly blood pressure task Care Plan Weekly blood pressure task No Isadora Biswas MA Weekly blood pressure task Care Plan Weekly blood pressure task No Isadora Biswas [place] Patient has chronic kidney disease Care Plan Patient has chronic kidney disease No Isadora Biswas [place] Patient has chronic kidney disease Care Plan Patient has chronic kidney disease No Isadora Biswas MA Weekly blood pressure task Care Plan Weekly blood pressure task No [facility] Weekly blood pressure task Care Plan Weekly blood pressure task No [facility] Patient has chronic kidney disease Care Plan Patient has chronic kidney disease No [facility] Patient has chronic kidney disease Care Plan Patient has chronic kidney disease No [facility] Weekly blood pressure task Care Plan Weekly blood pressure task No Lasha Marrufo MD Weekly blood pressure task Care Plan Weekly blood pressure task No Lasha Marrufo MD Patient has chronic kidney disease Care Plan Patient has chronic kidney disease No Lasha Marrufo MD Patient has chronic kidney disease Care Plan Patient has chronic kidney disease No Lahsa Marrufo MD Weekly blood pressure task Care Plan Weekly blood pressure task No Matilda Mcallister Weekly blood pressure task Care Plan Weekly blood pressure task No Matilda Mcallister Patient has chronic kidney disease Care Plan Patient has chronic kidney disease No Matilda Mcallister Patient has chronic kidney disease Care Plan Patient has chronic kidney disease No Matilda Mcallister Weekly blood pressure task Care Plan Weekly blood pressure task No July Chavez Weekly blood pressure task Care Plan Weekly blood pressure task No July Chavez Patient has chronic kidney disease Care Plan Patient has chronic kidney disease No July Chavez Patient has chronic kidney disease Care Plan Patient has chronic kidney disease No July Chaevz Weekly blood pressure task Care Plan Weekly blood pressure task No Meliton Paul Weekly blood pressure task Care Plan Weekly blood pressure task No Meliton Paul Patient has chronic kidney disease Care Plan Patient has chronic kidney disease No Meliton Paul Patient has chronic kidney disease Care Plan Patient has chronic kidney disease No Meliton Paul Procedures Procedure Name Priority Date/Time Associated Diagnosis Comments XR LUMBAR SPINE 2-3 VIEWS Routine 02/02/2025 12:23 AM EDT LIPASE Routine 02/01/2025 8:36 PM EDT MAGNESIUM Routine 02/01/2025 8:36 PM EDT BASIC METABOLIC PANEL Routine 02/01/2025 8:36 PM EDT HEPATIC FUNCTION PANEL Routine 8:36 PM EDT CBC WITH AUTO DIFFERENTIAL Routine 02/01/2025 8:36 PM EDT LDCT LUNG SCREENING Routine 01/01/2025 2 :48 PM EDT POCT GLYCATED HEMOGLOBIN, TOTAL Routine 12/10/2024 1:12 PM EDT Type 2 diabetes mellitus without complication, without long-term current use of insulin (CMS/HCC) HIV 1/2 ANTIGEN/ANTIBODY, FOURTH GENERATION W/RFL Routine 10/23/2024 10:11 AM EDT Preventative health care LIPID PANEL, STANDARD Routine 10/23/2024 10:11 AM EDT Type 2 diabetes mellitus without complication, without long-term current use of insulin (CMS/HCC) Primary hypertension Hypertriglyceridem ia HPV DNA, LOW/HIGH [...] AM EDT Narrative 02/02/2025 12:24 AM EDT [address] [address] XRay Report Signed Patient: Arianna Pineda MR#: [id number] : 1960 Acct:[id number] Age/Sex: 64 / F ADM Date: 02/01/25 Loc: HO.ED Attending Dr: Ordering Physician: Kaylee Worthington Date of Service: 02/01/25 Procedure(s): XR lumbar spine 2-3V Accession Number(s): [id number] cc: Lasha Castillo MD; Kaylee Worthington Reason for Exam: pain, compression fx? CLINICAL HISTORY: pain, compression fx? 3 views lumbar spine Comparison: None provided Findings: Five [id number] lumbar-type vertebral bodies are present. Vertebral body heights are maintained. Mild retrolisthesis of L3 on L4 is present. No pars defect. Patient is osteopenic. There is mild disc space narrowing at L3/L4, L4/L5 and L5/S1. Multilevel facet arthropathy greatest at L3/L4, L4/L5, L5/S1. Spinous processes are normally aligned. Surgical clips in the right upper quadrant. Moderate degenerative changes at the sacroiliac articulations. Unje-nzuhumr-tqhu-right femoroacetabular joint space narrowing. Vascular calcifications are [...] MD in OV> 02/02/2523 DD/ TD/TT: 02/02/2522 Crtt: Procedure Note Santhoshotcollinster, Image - 02/02/[address] [address] XRay Report Signed Patient: Arianna Pineda EMR#: [id number] : 1960cct:[id number] Age/Sex: 64 / FADM Date: 02/01/25 Loc: HO.ED Attending Dr: Ordering Physician: Kaylee Worthington Date of Service: 02/01/25 Procedure(s): XR lumbar spine 2-3V Accession Number(s): [id number] cc: Lasha Castillo MD; Kaylee Worthington Reason for Exam: pain, compression fx? CLINICAL HISTORY: pain, compression fx? 3 views lumbar spine Comparison: None provided Findings: Five fug-zuc-dehbiea lumbar-type vertebral bodies are present. Vertebral body heights are maintained. Mild retrolisthesis of L3 on L4 is present. No pars defect. Patient is osteopenic. There is mild disc space narrowing at L3/L4, L4/L5 and L5/S1. Multilevel facet arthropathy greatest at L3/L4, L4/L5, L5/S1. Spinous processes are normally aligned. Surgical clips in the right upper quadrant. Moderate degenerative changes at the sacroiliac articulations. Bccc-vpxpwkj-aavp-right femoroacetabular joint space narrowing. Vascular calcifications are [...] Garcia MD in OV> 02/02/2523 DD/ TD/TT: 02/02/25 0023 Crtt: us [facility] External Provider IMG XR PROCEDURES Edited Result - Final * (ABNORMAL) CBC auto differential (02/01/2025 8:36 PM EDT) White Blood Count 9.3 4.8 - 10.8 X10*3/uL [facility] Red Blood Count 4.61 4.20 - 5.50 X10*6/uL [facility] Hemoglobin 12.0 12.0 - 16.0 g/dl [facility] Hematocrit 38.8 37.0 - 47.0 % [facility] Mean Corpuscular Volume 84.2 80.0 - 98.0 fL [facility] Mean Corpuscular Hemoglobin 26.0(L) 27.0 - 33.0 pg [facility] Mean Corpuscular HGB Conc 30.9(L) 31.0 - 35.0 g/dl [facility] Red Cell Distribution Width 15.8 11.0 - 16.0 % [facility] Platelet Count 190 160 - 400 X10*3/uL [facility] Mean Platelet Volume 9.0(L) 9.4 - 12.3 fL [facility] Neutrophils Percent Auto 55.1 45 - 73 % [facility] Imm Gran Pct Auto 0.3 0.0 - 0.4 % [facility] Lymphocytes Percent Auto 37.5 20 - 40 % [facility] Monocytes Percent Auto 5.4 2 - 11 % [facility] Eosinophils Percent Auto 1.3 0 - 4 % [facility] Basophils Percent Auto 0.4 0 - 2 % [facility] NRBC Pct Auto 0.0 0.0 - 0.2 /100WBC [facility] Neutrophils Absolute Auto 5.1 2.0 - 8.3 x10*3/uL [facility] Imm Gran Abs Auto 0.03 0.00 - 0.03 X10*3/uL [facility] Lymphocytes Absolute Auto 3.5 1.2 - 4.9 X10*3/uL [facility] Monocytes Absolute Auto 0.5 0.1 - 1.2 X10*3/uL [facility] Eosinophils Absolute Auto 0.1 0.0 - 0.4 X10*3/uL [facility] Basophils Absolute Auto 0.0 0.0 - 0.2 X10*3/uL [facility] NRBC Abs Auto 0.000 0.0 - 0.012 X10*3/uL [facility] 02/01/2025 8:36 PM EDT 02/01/2025 8:39 PM EDT Generic External Data Provider LAB BLOOD ORDERAB LES Final Result Performing Organization Address [facility]ZIP Co de Phone Number [facility] [address] [place] [phone] * Magnesium (02/01/2025 8:36 PM EDT) Magnesium 2.0 1.6 - 2.6 mg/dL [facility] 02/01/2025 8:36 PM EDT 02/01/2025 8:39 PM EDT Generic External Data Provider LAB BLOOD ORDERAB LES Final Result Performing Organization Address [facility] Co de Phone Number [facility] [address] [place] [phone] * Lipase (02/01/2025 8:36 PM EDT) Lipase 28 8 - 78 U/L [facility] 02/01/2025 8:36 PM EDT 02/01/2025 8:39 PM EDT Generic External Data Provider LAB BLOOD ORDERAB LES Final Result Performing Organization Address [facility] Co de Phone Number [facility] [address] [place] [phone] * (ABNORMAL) Hepatic Function Panel (02/01/2025 8:36 PM EDT) Bilirubin, Total 0.1 0.0 - 1.0 mg/dL [facility] Bilirubin, Direct <0.2 0.0 - 0.5 mg/dL [facility] Aspartate Amino Transferase 21 5 - 31 U/L [facility] Alanine Aminotransferase 20 0 - 31 U/L [facility] Total Protein 7.6 6.5 - 8.0 g/dL [facility] Albumin Level 4.2 3.5 - 5.0 g/dL [facility] Alkaline Phosphatase 126(H) 39 - 117 U/L [facility] 02/01/2025 8:36 PM EDT 02/01/2025 8:39 PM EDT us Generic External Data Provider LAB BLOOD ORDERAB LES Final Result Performing Organization Address City/State/[facility] Co de Phone Number [facility] [address] [place] [phone] * (ABNORMAL) Basic Metabolic Panel (02/01/2025 8:36 PM EDT) Pathologist [facility] Sodium 141 135 - 145 mmol/L [facility] Potassium 3.5 3.3 - 5.1 mmol/L [facility] Chloride 106 96 - 108 mmol/L [facility] Carbon Dioxide 29 22 - 29 mmol/L [facility] Anion Gap 10(L) 12 - 20 [facility] Urea Nitrogen (BUN) 11 9 - 16 mg/dL [facility] Creatinine, Serum 0.66 0.5 - 1.4 mg/dL [facility] Creatinine Clr Calc Pharmacy 111.4 [facility] Comment:Provided height and weight: 167.64 cm,113.398 kg.eGFR (calculated from the MDRD study equation) and eCrCl(calculated from the Cockcroft-Gault equation) are based ondifferent parameters and may not yield comparable results.If eCrCl result is absurd, please check patient'sheight/weight. Estimated Glomerular Filt Rate >60 [facility] Comment:Chronic Kidney Disea se: Estimated GFR < 60 mL/min/1.96k0Ovgxus Kidney Disease: Estimated GFR < 15 mL/min/1.73m2 Glucose 81 60 - 115 mg/dL [facility] Calcium 9.2 8.4 - 10.2 mg/dL [facility] 02/01/2025 8:36 PM EDT 02/01/2025 8:39 PM EDT us Generic External Data Provider LAB BLOOD ORDERAB LES Final Result Performing Organization Address City/State/[facility] Co de Phone Number [facility] [address] [place] [phone] * CT Lung Screening Low dose (01/01/2025 2:48 PM EDT) Anatomical Region Laterality Modality Lung Computed Tomogra phy 01/01/2025 2:48 PM EDT Narrative 01/01/2025 2:50 PM EDT [address] [address] [address] Scan Report Signed Patient: Arianna Pineda MR#: [id number] : 1960 Acct:[id number] Age/Sex: 64 / F ADM Date: 12/30/24 Loc: HO.CT Attending Dr: Katrina Velez PA-C Ordering Physician: Katrina Velez PA-C Date of Service: 12/30/24 Procedure(s): CT lung screening Accession Number(s): [id number] cc: Lasha Castillo MD; Katrina Velez PA-C Report Number: [id number]: Total DLP = 85.00 mGy-cm Reason for Exam: F17.210 - Nicotine dependence, cigarettes, uncomplicated CLINICAL HISTORY: F17.210 - Nicotine dependence, cigarettes, uncomplicated CT lung cancer screening (LDCT) Comparison: CT/HI/SR - CT LUNG SCREENING - 12/01/23 10:36 [...] Barrett MD in OV> 01/01/25 1450 DD/ 47 TD/TT: 01/01/251447 Crtt: Procedure Note Donotuseinterpreter, Image - 01/01/[address] [address] [address] Scan Report Signed Patient: Arianna Pineda EMR#: [id number] : 1960cct:[id number] Age/Sex: 64 / FADM Date: 12/30/24 Loc: .CT Attending Dr: Katrina Velez PA-C Ordering Physician: Katrina Velez PA-C Date of Service: 12/30/24 Procedure(s): CT lung screening Accession Number(s): [id number] cc: Lasha Castillo MD; Katrina Velez PA-C Report Number: [id number]: Total DLP = 85.00 mGy-cm Reason for Exam: F17.210 - Nicotine dependence, cigarettes, uncomplicated CLINICAL HISTORY: F17.210 - Nicotine dependence, cigarettes, uncomplicated CT lung cancer screening (LDCT) Comparison: CT/HI/SR - CT LUNG SCREENING - 12/01/23 10:36 [...] 01/01/25 1450 DD/ 1448 TD/TT: 01/01/25 1448 Crtt: [facility] External Provider IMG CT PROCEDURES Final Result * (ABNORMAL) POCT Hgb A1c (12/10/2024 1:12 PM EDT) Hemoglobin A1C 6.1(A) 4.0 - 5.7 % QC Media Lot # [id number] Lot# Expiration Date [id number] Blood 12/10/2024 1:12 PM EDT Lasha Jara MD POINT OF CARE TEST EN TER/EDIT ORDERABLES Final Result * HIV-1/2 Antigen and Antibodies, Fourth Generation, with Reflexes (10/23/2024 10:11 AM EDT) HIV AB/AG Nonreactive Nonreactive [facility] Comment:HIV-1 p24 Ag and/or HIV-1/HIV-2 Ab not detected.A test result that is nonreactive does not exclude thepossibility of exposure to or infection with HIV-1 and/orHIV-2. Nonreactive results in this assay for individualswith prior exposure to HIV-1 and/or HIV-2 may be due toantigen and antibody levels that are below the limit ofdetection of this assay.The ERN HIV Ag/Ab Combo assay result andsupplemental assay results should be interpreted inconjunction with the patient's clinical presentation,history and other laboratory results. If the results areinconsistent with clinical evidence, additional testing issuggested to confirm the result. Blood Venous blood specimen / Unknown 10/23/2024 10:11 AM EDT 10/23/2024 10:11 AM EDT Lasha Jara MD LAB BLOOD ORDERABLES Final Result [facility] [address] [place] [phone] * (ABNORMAL) Lipid Panel, Standard (10/23/2024 10:11 AM EDT) Triglycerides 147 <150 mg/dL [facility] Comment:Desirable Triglyceri de: less than 150 mg/dLBorderline High Triglyceride 150-199 mg/dLHigh Triglyceride: 200-499 mg/dLVery High Triglyceride: greater than or equal to 5OO mg/dL Cholesterol 116 <200 mg/dL [facility] Comment:Desirable Cholestero l: less than 200 mg/dLBorderline High Cholesterol: 200-239 mg/dLHigh Cholesterol: greater than 239 mg/dL LDL Cholesterol Calculated 54 <100 mg/dL [facility] Comment:Desirable LDL: less than 100 mg/dLNear Optimal/Above Optimal LDL: 110- 129 mg/dLBorderline High LDL: 130-159 mg/dLHigh LDL: 160-189 mg/dLVery High LDL: greater than or equal to 190 mg/dL HDL Cholesterol 33(L) >40 mg/dL [facility] Comment:Desirable HDL: great er than 40 mg/dL Note: This HDL assay may give artificially low results in patients with liver disease. Blood Venous blood specimen / Unknown 10/23/2024 10:11 AM EDT 10/23/2024 10:11 AM EDT Lasha Jara MD LAB BLOOD ORDERABLES Final Result Performing Organization Address [facility] Co de Phone Number [facility] [address] [place] [phone] [phone] * HPV DNA, Low/High Risk (10/03/2024 3:17 PM EDT) HPV High Risk Negative Negative [facility] HPV Genotype 16 Negative Negative [facility] HPV Genotype 18 Negative Negative [facility] Comment:HPV testing performe d at [facility] (CLIA#[id number]), [address] [place] [address].Testing for HPV was performed using the Likeability [employer] TeamRock0system. The presence of HPV in the female [...] ORDERAB LES Final Result Performing Organization Address [facility]/ZIP Co de Phone Number [facility] [address] [place] [phone] * Pap Smear (10/03/2024 3:17 PM EDT) 10/03/2024 3:17 PM EDT 10/07/2024 7:55 AM EDT Narrative [facility] - 10/09/2024 1:36 PM EDT ----- ------- Name: Arianna Pineda Age/Sex: 64/F : 1960 Unit#: [id number] Attend Dr: Sanjay Ochoa MD Re10/03/24 Status: [facility] REF Location: [facility] Disch: ----- ------- SPEC : [id number] RECD: 10/07/24 STATUS: NUNO GONSALEZRuby NUM: [id number] COURTNEY: 10/03/[address] [facility] [address]: Sanjay Ochoa MD ENTERED: 10/07/24 SP [...] and HPV testing will be performed at [facility] (CLIA #[id number]), [address] [place] [address]. Testing for HPV was performed using the Digital LumensAS 6800 system. The presence of HPV in [...] detected. All professional services are performed by [facility] ([address] [place] [id number]; ; CLIA #[id number]). The PAP Test is a screening procedure with the inherent possibility of both false negative and false positive results. Results should be interpreted in the context of historic and current clinical findings. Reliability of the PAP Test is enhanced by performing the test on a regular repetitive basis. CONTINUED ON NEXT PAGE ----- ------- Name: Arianna Pineda Age/Sex: 64/F : 1960 Unit#: [id number] Attend Dr: Sanjay Ochoa MD Re10/03/24 Status: [facility] REF Location: [facility] Disch: ----- ------- SPEC : [id number] RECD: 10/07/24 STATUS: NUNO BARRETO NUM: [id number] COURTNEY: 10/03/[address] [facility] [address]: Sanjay Ochoa MD ENTERED: 10/07/24 SP TYPE: Pap Smr OTHR DR: Lasha Castillo MD ORDERED: Pap Smear Copies To: Lasha Castillo MD [address] [address] Sanjay Ochoa MD [facility] [address] [place] [address] ----- ------- Signed (signature on file) ROB Nunes ([facility]) 10/09/24 1336 ----- ------- END OF REPORT us Generic External Data Provider LAB CYTOLOGY AJ WALTERS Final Result [facility] [address] [place] [address] [place] [phone] * BI Mammogram Screening Tomosynthesis Bilateral (08/29/2024 10:50 AM EDT) Anatomical Region Laterality Modality Breast Bilateral Mammography 08/29/2024 10:5 0 AM EDT Narrative 09/06/2024 4:28 PM EDT [address] [place] [address] Mammography Report Signed Patient: Arianna Pineda MR#: [id number] : 1960 Acct:[id number] Age/Sex: 64 / F ADM Date: 08/29/24 Loc: FAIZA Attending Dr: Lasha Castillo MD Ordering Physician: Lasha Castillo MD Resu lts: 2Benign Findings Date of Service: 08/29/24 Follow Up: 1 Year From Orig inal Mammogram Procedure(s): MM tomosynthesis screening BI Accession Number(s): [id number] cc: Lasha Castillo MD EXAMINATION: MM SCREENING [...] 09/06/24 1625 DD/ 1050 TD/TT: 08/29/24 1120 Crtt: Procedure Note Donotuseinterpreter, Image - 09/06/2024 Shyann [facility] [address] [place] [address] Mammography Report Signed Patient: Arianna Pineda EMR#: [id number] : 1960cct:[id number] Age/Sex: 64 / FADM Date: 08/29/24 Loc: COSMOO Attending Dr: Lasha Castillo MD Ordering Physician: Lasha Castillo MDResu lts: 2Benign Findings Date of Service: 08/29/24Follow Up: 1 Year From Orig ina Mammogram Procedure(s): MM tomosynthesis screening BI Accession Number(s): [id number] cc: Lasha Castillo MD EXAMINATION: MM SCREENING [...] 09/06/24 1625 DD/ 1050 TD/TT: 08/29/24 1120 Crtt: us Lasha Jara MD IMG BI PROCEDURES Fin al Result * Albumin, Random Urine W/Creatinine (06/29/2022 12:01 PM EDT) Creatinine, Random Urine 112 20 - 275 mg/dL [facility] Albumin, Urine 2.0 See Note: mg/dL [facility] Comment: Reference Range: Reference Range Not established Albumin/Creatinin e Ratio, Random Urine 18 <30 mcg/mg creat [facility] Comment: The ADA defines abnormalities in albumin [...] 06/30/2022 5:17 PM EDT SPLIT 06/29/2022 FROM [id number] Lasha Jara MD LAB URINE ORDERABLES Final Result Performing Organization Address [facility] de Phone Number [facility] [address] [place] [address], [place] [phone] [employer] [place] [facility] [address] [place] [phone] * Hepatitis C Antibody with Reflex to HCV, RNA, Quantitative, Real-Time PCR (06/29/2022 9:03 AM EDT) Hepatitis C Antibody NON-REACT BROCK NON-REACT BROCK [facility] Index 0.07 <1.00 [facility] Comment: HCV antibody was non-reactive. There is no laboratory evidence of HCV infection. In most cases, no further action is required. However, if recent HCV exposure is suspected, a test for HCV RNA (test code 39370) is suggested. For additional information please refer to http://education.[employer]/faq/ATH62g4 (This link is being provided for informational/ educational purposes only.) 06/29/2022 9:03 AM EDT 06/29/2022 9:04 AM EDT Narrative [facility] - 06/29/2022 10:21 PM EDT FASTING:NO PATIENT UNABLE TO VOID; ADVISED TO RETURN FOR COLLECTION. FASTING: NO Lasha Jara MD LAB BLOOD ORDERABLES Final Result Performing Organization Address [facility] Co de Phone Number [facility] [address] [place] [address], [place] [phone] [facility] [address] [place] [phone] * Hm Colonoscopy (06/26/2019) Colonoscopy Normal Normal 06/26/2019 Irene Zavala - 06/26/2019 2:53 PM EDT Recommended 5 year follow up ( see scanned notes) us Historical Provider MD HEALTH MAINTENANCE Edited Result - Final from Last 3 Months or Most Recently Relevant to Health Maintenance Additional Health Concerns Active Problems Noted Date Diagnosed Date Help patients manage their type 2 diabetes 02/13 Weekly blood pressure task 02/13/2025 Help patients manage their type 2 diabetes 02/13 Patient has chronic kidney disease 02/13/2025 Weekly blood pressure task 02/13/2025 Patient has chronic kidney disease 02/13/2025 Weekly blood pressure task 02/14/2025 Weekly blood pressure task 02/14/2025 Patient has chronic kidney disease 02/14/2025 Patient has chronic kidney disease 02/14/2025 Weekly blood pressure task 02/17/2025 Weekly blood pressure task 02/17/2025 Patient has chronic kidney disease 02/17/2025 Patient has chronic kidney disease 02/17/2025 Weekly blood pressure task 02/17/2025 Weekly blood pressure task 02/17/2025 Patient has chronic kidney disease 02/17/2025 Patient has chronic kidney disease 02/17/2025 Weekly blood pressure task 02/18/2025 Weekly blood pressure task 02/18/2025 Patient has chronic kidney disease 02/18/2025 Patient has chronic kidney disease 02/18/2025 Weekly blood pressure task 02/18/2025 Weekly blood pressure task 02/18/2025 Patient has chronic kidney disease 02/18/2025 Patient has chronic kidney disease 02/18/2025 Weekly blood pressure task 02/19/2025 Weekly blood pressure task 02/19/2025 Patient has chronic kidney disease 02/19/2025 Patient has chronic kidney disease 02/19/2025 Weekly blood pressure task 02/25/2025 Weekly blood pressure task 02/25/2025 Patient has chronic kidney disease 02/25/2025 Patient has chronic kidney disease 02/25/2025 Weekly blood pressure task 03/14/2025 Weekly blood pressure task 03/14/2025 Patient has chronic kidney disease 03/14/2025 Patient has chronic kidney disease 03/14/2025 Insurance [facility] C3 [facility] MEDICAID STAND ADULT Care Teams Ship Surveyor Relationship Specialty Start Date End Date Lasha Marrufo MD [address] [place] [address] PCP - General Internal Medicine 12/25/13 Farzad Sandhu MD [address] [place] [address] Cardiology 11/08/24
--- OUTSIDE RECORDS SUMMARY | 2025-03-17 04:22 | XMS_ITS | Encounter Summary ---
Author Organization [employer] Address [address] [place] [address] [address] [place] [address] Care Team Providers Care Manager Process Improvement Name Role Phone Lasha Marrufo MD Primary Care Provide r Farzad Sandhu MD Unavailable [phone] Encounter Details Date Type Department Care Team (Late st Contact Info) Description 05/03/2022 Orders Only [facility] [address] [place] [phone] Elsa Julien LPN Social History Tobacco Use [...] 1:00 PM EST Medication Management [facility] [address] [place] [phone] Violet Narvaez, PharmD [address] [place] [address] documented as of this encounter Visit Diagnoses Not on filedocumented in this encounter Care Teams Manager Process Improvement Relationship Specialty Start Date End Date Lasha Marrufo MD [address] [place] [phone] PCP - General Internal Medicine 9/24/14 Farzad Sandhu MD [address] [place] [address] Cardiology 11/08/24 documented as of this encounter
--- OUTSIDE RECORDS SUMMARY | 2025-03-17 04:22 | XMS_ITS | Encounter Summary ---
Author Organization [employer] Address [address] [facility] [address] [place] [address] Care Team Providers Care Lime Kiln Worker Helper Name Role Phone Lasha Marrufo MD Primary Care Provide r Farzad Sandhu MD Unavailable [phone] Reason for Visit * Reason Comments Med Refill Encounter Details Date Type Department Care Team (Late st Contact Info) Description 03/13/2025 Refill [facility] [address] [place], [place] [phone] Lasha Marrufo MD [address] [place], [place] [phone] Acute non intractable tension-type headache Social History Tobacco Use Types Packs/Day Years [...] Description 03/21/2025 1:00 PM EST Medication Management [facility] [address] [place] [address] Violet Narvaez, PharmD [address] [place] [address] documented as of this encounter Goals Goal [...] Plan Weekly blood [facility] blood pressure task Care Plan Weekly blood pressure task No Zhane Mora [facility] Patient has chronic kidney disease Care Plan Patient has chronic kidney disease [facility] Patient has chronic kidney disease Care Plan Patient has chronic kidney disease [facility] Weekly blood pressure task Care Plan Weekly blood pressure task No Lasha Marrufo MD Weekly blood pressure task Care Plan Weekly blood pressure task No Lasha Marrufo MD Patient has chronic kidney disease Care Plan Patient has chronic kidney disease No Lasha Marrufo MD Patient has chronic kidney disease Care Plan Patient has chronic kidney disease No Lasha Marrufo MD Weekly blood pressure [...] has chronic kidney disease No July Chavez documented as of this encounter Visit Diagnoses Diagnosis Acute non intractable tension-type headache documented in this encounter Additional Health Concerns Active Problems Noted Date [...] 02/25/2025 Patient has chronic kidney disease 02/25/2025 Assessment Noted Time PHQ-9 Depression Total Score: 12 025 1:57 PM EST documented as of this encounter Care Teams Lime Kiln Worker Helper Relationship Specialty Start Date End Date Lasha Marrufo MD [address] [place] [phone] PCP - General Internal Medicine 12/25/13 Farzad Sandhu MD [address] [place] [address] Cardiology 11/08/24 documented as of this encounter
--- OUTSIDE RECORDS SUMMARY | 2025-03-17 04:22 | XMS_ITS | Encounter Summary ---
Author Organization [employer] Address [address] [facility] 7t [place] [address] Care Team Providers Care Engineering Programmer Name Role Phone Lasha Marrufo MD Primary Care Provide r Farzad Sandhu MD Unavailable [phone] Reason for Visit * Reason Comments Med Refill Encounter Details Date Type Department Care Team (Late st Contact Info) Description 03/14/2025 Refill [facility] [address] [place], [place] [phone] Lasha Marrufo MD [address] [place] [address] Social History Tobacco Use Types Packs/Day Years [...] Description 03/21/2025 1:00 PM EST Medication Management [facility] [address] [place] [address] Violet Narvaez, PharmD [address] [place] [address] documented as of this encounter Goals Goal [...] Plan Patient has chronic kidney disease No Isadroa Biswas [place] Weekly blood pressure task Care [...] Plan Weekly blood pressure task [facility] Weekly blood pressure task Care Plan Weekly blood pressure task [facility] Patient has chronic kidney disease Care Plan Patient has chronic kidney disease [facility] Patient has chronic kidney disease Care Plan Patient has chronic kidney disease [facility] Weekly blood pressure task Care Plan [...] has chronic kidney disease No July Chavez Weekly blood pressure task Care Plan Weekly blood pressure task No Meliton Paul Weekly blood pressure task Care Plan Weekly blood pressure task No Meliton Paul Patient has chronic kidney disease Care Plan Patient has chronic kidney disease No Meliton Paul Patient has chronic kidney disease Care Plan Patient has chronic kidney disease No Meliton Paul documented as of this encounter Visit Diagnoses Not on filedocumented in this encounter Additional Health Concerns Active [...] 03/14/2025 Patient has chronic kidney disease 03/14/2025 Assessment Noted Time PHQ-9 Depression Total Score: 12 025 1:57 PM EST documented as of this encounter Care Teams Engineering Programmer Relationship Specialty Start Date End Date Lasha Marrufo MD [address] [place] [address] PCP - General Internal Medicine 12/25/13 Farzad Sandhu MD [address] [place] [address] Cardiology 11/08/24 documented as of this encounter
--- OUTSIDE RECORDS SUMMARY | 2025-03-17 04:22 | XMS_ITS | Clinical Summary ---
Author Organization [facility] Address [address] [place] [address] Phone Care Team Providers Care Amplifier Mechanic Name Role Phone Lasha Castillo MD Primary Care Provi av Allergies Active Allergy Reactions Criticality Noted Date Comments Acetaminophen 05/26/2016 Codeine Unknown 05/26/2016 Pseudoephedrine Unknown 06/29/2022 pseudoephedrine Shellfish Derived 10/03/2022 Medications ammonium lactate (AmLactin) 12 % lotion Apply topically if needed for dry skin. 400 g 2 11/28/19 25 026 Active ciclopirox (PENLAC) 8 % solutionIndicat ions:Dermatophy tosis, nail APPLY TO NAIL FOLD AND SURROUNDING AREA(S) AT BEDTIME. CLEAN AFTER 7 DAYS WITH ALCOHOL 6.6 mL 02/27/20 25 Active silver sulfADIAZINE (SSD) 1 % cream Apply topically 1 (one) time each day. 50 g 02/21/20 25 026 Active ciclopirox (PENLAC) 8 % solution Apply topically at bedtime. Apply over nail and surrounding skin. Apply daily over previous coat. After seven (7) days, may remove with alcohol and continue cycle. 6.6 mL 11/28/19 25 025 Discontinued silver sulfADIAZINE (Silvadene) 1 % creamIndication s:Ingrowing nail Apply topically 1 (one) time each day. 50 g 02/20/20 25 025 Discontinued traMADoL (ULTRAM) 50 mg tablet Take 1 tablet (50 mg total) by mouth every 6 (six) hours if needed (Moderate to severe pain) for up to 7 days. Max Daily Amount: 200 mg 28 tablet 02/20/20 25 025 Discontinued traMADoL (ULTRAM) 50 mg tablet Take 1 tablet (50 mg total) by mouth every 6 (six) hours if needed (Moderate to severe pain) for up to 7 days. Max Daily Amount: 200 mg 28 tablet 02/21/20 25 025 Encounters Date Type Department Care Team Description 03/06/2025 1:15 PM EST Office Visit Orthopedic Surgery [place] [phone] [address] Estevan Viramontes DPM Open wound of left great toe, initial encounter (Primary Dx) 02/19/2025 10:45 AM EST Office Visit Orthopedic [address] [phone] Estevan Viramontes DPM Ingrowing nail (Primary Dx); Cellulitis of left foot 02/19/2025 Telephone [address] [phone] Estevan Viramontes DPM 01/29/2025 10:45 AM EDT Office Visit [address] [phone] Estevan Viramontes, DPM Controlled type 2 diabetes with neuropathy (CMS/HCC V24, CMS/HCC V28) (Primary Dx); Arthritis of both feet; Hammertoes of both feet; Dermatophytosis, nail; Ingrown left big toenail from Last 3 Months Social History Tobacco Use Types Packs/Day Years Used Date Smoking Tobacco: Never Assessed Comments Unknown Sex and Gender Information Value Date Recorded Sex Assigned at Female 04/18/2024 1:44 PM EST Legal Sex Female 9:10 PM EST Gender Identity Female 04/18/2024 1:44 PM EST Sexual Orientation Straight 04/18/2024 1: 44 PM EST Last Filed Vital Signs Vital Sign Reading Time Taken Comments Blood Pressure - - Pulse - - Temperature - - Respiratory Rate - - Oxygen Saturation - - Inhaled Oxygen Concentration - - Weight 102 kg (225 lb) 02/19/2025 11:15 AM EST Height 167.6 cm (5' 6 ) 02/19/2025 11:15 AM EST Body Mass Index 36.32 02/19/2025 11:15 AM EST Plan of Treatment Upcoming Encounters Date Type Department Care Team (Late st Contact Info) Description 03/20/2025 1:30 PM EST Office Visit Orthopedic Surgery - [place] [address] [facility] [address] [place] [phone] Estevan Viramontes, MIAH [address] [facility] [address] [place] [address] Health Maintenance Due Date Last Done Comments [...] 02/13/2024 Diabetes: Annual GFR (Glomerular Filtration Rate) 02/01/2026 02/01/2025, 10/23/2024 Hypertension/CHF/CAD Annual BMP Blood Test 02/01/2026 02/01/2025, 10/23/2024 DTaP,Tdap,and Td Vaccines (2 - Td [...] topic Insurance MEDICAID - [place] Care Teams Amplifier Mechanic Relationship Specialty Start Date End Date Lasha Castillo MD [address] [place] [address] PCP - General Internal Medicine 09/09/24
--- OUTSIDE RECORDS SUMMARY | 2025-03-17 04:22 | XMS_ITS | Encounter Summary ---
Author Organization [employer] Address [address] [place] [address] 7[address] [place] [address] Care Team Providers Care Industrial Cafeteria Manager Name Role Phone Lasha Marrufo MD Primary Care Provide r Farzad Sandhu MD Unavailable [phone] Encounter Details Date Type Department Care Team (Late st Contact Info) Description 06/30/[address] [facility] [address] [place] [phone] Elsa Julien LPN Social History Tobacco Use [...] Description 03/21/2025 1:00 PM EST Medication Management [facility] [address] [place], [place] [phone] Violet Narvaez, PharmD [address] [place] [address] documented as of this encounter Visit Diagnoses Not on filedocumented in this encounter Care Teams Industrial Cafeteria Manager Relationship Specialty Start Date End Date Lasha Marrufo MD [address] [place] [address] PCP - General Internal Medicine 12/25/13 Farzad Sandhu MD [address] [place] [address] Cardiology 11/08/24 documented as of this encounter
--- OUTSIDE RECORDS SUMMARY | 2025-03-17 04:22 | XMS_ITS | Encounter Summary ---
Author Organization [employer] Address [address] [facility] [address] [place] [address] Care Team Providers Care Truck Driver Salesperson Name Role Phone Lasha Marrufo MD Primary Care Provide r Farzad Sandhu MD Unavailable Reason for Visit * Reason Onset Date Comments Referral 03/14/2025 Encounter Details Date Type Department Care Team ([facility] st Contact Info) Description 03/14/2025 Telephone [facility] [address] [place], [place] [phone] Lasha Marrufo MD [address] [place] [address] Referral Social History Tobacco Use Types Packs/Day [...] * Telephone Encounter - Meliton Paul - 03/14/2025 3:03 PM EST Tc from pt daughter requesting to be referred somewhere else for rheumatology for a second opinion due to being unsure with medical treatment. Any questions contact pt at [phone] documented in this encounter Plan of Treatment Upcoming Encounters Date Type Department Care Team (Late st Contact Info) Description 03/21/2025 1:00 PM EST Medication Management [facility] [address] [place] [address] Violet Narvaez, PharmD [address] [place] [address] documented as of this encounter Goals Goal [...] Care Plan Weekly blood pressure task No Suze Flynn [facility] Weekly blood pressure task Care Plan Weekly blood pressure task [facility] Patient has chronic kidney disease Care Plan Patient has chronic kidney disease [facility] Patient has chronic kidney disease Care Plan Patient has chronic kidney disease No [facility] Weekly blood pressure task Care Plan [...] documented as of this encounter Care Teams Truck Driver Salesperson Relationship Specialty Start Date End Date Lasha Marrufo MD [address] [place] [address] PCP - General Internal Medicine 12/25/13 Farzad Sandhu MD [address] [place] [phone] Cardiology 11/08/24 documented as of this encounter
--- OUTSIDE RECORDS SUMMARY | 2025-03-17 04:22 | XMS_ITS | Encounter Summary ---
Author Organization [employer] Address [address] [place] [address] [address] [place] [address] Care Team Providers Care Incoming Freight Clerk Name Role Phone Lasha Marrufo MD Primary Care Provide r Farzad Sandhu MD Unavailable [phone] Encounter Details Date Type Department Care Team (Late st Contact Info) Description 08/04/2022 Abstract [facility] [address] [place], [place] [phone] Lasha Marrufo MD [address] [place] [address] Social History Tobacco Use Types Packs/Day Years [...] Description 03/21/2025 1:00 PM EST Medication Management [facility] [address] [place], [place] [phone] Violet Narvaez, PharmD [address] [place], [place] [phone] documented as of this encounter Procedures Procedure [...] on filedocumented in this encounter Care Teams Incoming Freight Clerk Relationship Specialty Start Date End Date Lasha Marrufo MD [address] [place] [address] PCP - General Internal Medicine 12/25/13 Farzad Sandhu MD [address] [place] [phone] Cardiology 11/08/24 documented as of this encounter
--- OUTSIDE RECORDS SUMMARY | 2025-03-17 04:22 | XMS_ITS | Data Portability ---
Author Organization [place] - [facility], Allergy Address [address] [address] Care Team Providers Care Bi Solutions Architect Name Role Phone SARA XAVIER Primary Care [...] copy of the audiogram, a list of [facility] hearing aid providers, and medical clearance for [...] recorded . Imaging barium swallow study - bhutanese speaker [address] [facility] Diagnosit Imaging Dept, [address] [place], [address], 11:05:06 Medication Orders None recorded . Patient [...] 25 04/30/2024 XR, esoph agram See Note [facility] , a member of [facility] Jason greene Name: YUAN MORALES Date of : 1959 Reason for Exam: DYSPHA SAVANAH, UNSPEC IFIED Exam Date: 2024 [id number] EST Report Status : Final Orderi ng Provid er: LAURIE HYDE PCP: PIOTR GS: Double contra st esopha gram perfor med. COMPAR BENJAMIN: No prior esopha gram imagin g HISTOR Y: Jason greene is a 64-yea r-old female with histor y of dyspha savanah, GERD. Regional Sales Engineer radiog raphs: 1 view chest radiog raph [...] Date: 2024 16:24 ET [facility]st [id number] Transc ribed By: Self Edit Transc ribed Date: 2024 13:04 ET Reside nt/PA/ MOLDED GOODS CONTROLS OPERATOR: [facility] [address] [facility], [place], [address], 05/15/2024 18:16:30 Result Notes Documentation Provider Name and Address Organization Details Recorded Time Xr, Esophagram : See Note [facility], a member of [employer] Patient Name: YUAN WATERS Date of : 1960 Reason for Exam: DYSPHAGIA, UNSPECIFIED Exam Date: 04/30/2024 [id number] EST Report Status: Final Ordering Provider: LAURIE HYDE PCP: FINDINGS: Double contrast esophagram performed. COMPARISON: No prior esophagram imaging HISTORY: Patient is a 64-year-old female with history of dysphagia, GERD. Regional Sales Engineer radiographs: 1 view chest radiograph demonstrates cardiac [...] Signed Date: 05/01/2024 16:24 ET Workstation ID: [id number] Transcribed By: Self Edit Transcribed Date: 04/30/2024 13:04 ET Resident/PA/MOLDED GOODS CONTROLS OPERATOR: Halley Fishman MD [address] [place] [address], [phone], [place] - [facility] 05/15/2024 18:16:30 Problems Name Problem SNOMED Code Status Onset Date Resolution Date Notes Provider Name and Address Organization Details Recorded Time Otalgia of left ear 7125145727 Active 2018 Otalgia, left ear; Note: Date Diagnosed : 07/11/2018 1:20 PM (H92.02) Not Available [facility] 4 02:22:05 Sensorine ural hearing loss of bilateral ears 000630927 Active 2019 Sensorine ural hearing loss, bilateral ; Note: Date Diagnosed : 0 2:11 PM (H90.3) Not Available [facility] 4 02:22:06 Impacted cerumen in right ear [id number] 17108 Active 2023 LAURIE HYDE MD [address] [facility],[place] [address], [place], [address] , [place] - [facility] 4 12:23:59 Dysphagia 65708982 Active 2023 LAURIE HYDE MD [address] [facility] [address],[place] [address], [place], [address] , [place] - [facility] 4 10:45:04 Problem Notes None recorded. Procedures Surgical History Date Name Laterality Status Provider Name and Address Organization Details Recorded Time 11/03/2023 FOL_DP completed LAURIE HYDE MD [address] [place] [address],[place] [address], [place], [address], [place] - [facility] 11/03/2023 10:45:32 08/30/2023 Wax_DP completed LAURIE HYDE MD [address] [place] [address],[place] [address], [place], [address], [place] - [facility] 08/30/2023 12:23:50 08/30/2023 Air only Audio - [id number] completed SHWETA ALLEN MA, CCC-A [address] [facility],[place] [address], [place], [address], [place] - [facility] 08/30/2023 11:05:08 08/30/2023 SRT & Tymps - 09895 & 20922 completed SHWETA ALLEN MA, CCC-A [address] [facility],[place] [address], [place], [address], [place] [facility] 08/30/2023 11:05:44 Imaging Results None recorded. Procedure Notes None recorded. Medical Equipment None Reported. Allergies Allergen ID Allergen Name Allergen Category Reaction Reaction Severity Criticality Documentation Date Start Date Code Code System Note Provider Name and Address Organization Details Recorded Time 02135 pseudoeph edrine Not available other Not available Not available 08/15/2023 8896 RxNorm React ion: unkno wn, unspe cifie d;; Not Available [facility] 00:54:32 Medications Name Sig Start Date Stop Date Status Note LastModified by Organization Details LastModified Time cyclobenzapr ine 10 mg tablet 2018 active Medication ID: [id number] Durat ion Value: 10 Brand Name: cyclobenzapr ine Send Method: E-Prescribed Subs Allowed: subs OK Special Instruction: TAKE 1 TABLET BY MOUTH THREE TIMES DAILY Medica tionGenericN soo: cyclobenzapr ine Not Available Not Available Not Available ipratropium 0.5 mg-albuterol 3 mg (2.5 mg base)/3 mL nebulization soln 2018 active Medication ID: [id number] Durat ion Value: 8 Brand Name: ipratropium- albuterol Se nd Method: E-Prescribed Subs Allowed: subs OK Special Instruction: INHALE 1 AMPULE USING A NEBULIZER FOUR TIMES DAILY ONLY FOR WHEEZING & NOT FOR COUGH Medica tionGenericN soo: ipratropium- albuterol Not Available Not Available Not Available ranitidine 300 mg tablet 2018 active Medication ID: [id number] Durat ion Value: 30 Brand Name: ranitidine HCl Send Method: E-Prescribed Subs Allowed: subs OK Special Instruction: TAKE 1 TABLET TWICE DAILY Medica tionGenericN soo: ranitidine HCl Not Available Not Available Not Available metoprolol succinate ER 100 mg tablet,exten ded release 24 hr 2018 active Medication ID: [id number] Durat ion Value: 30 Brand Name: metoprolol succinate Se nd Method: E-Prescribed Subs Allowed: subs OK Special Instruction: TAKE 1 TABLET EVERY EVENING Medi cationGeneri cName: metoprolol succinate Not Available Not Available Not Available clobetasol 0.05 % topical cream 2018 active Medication ID: [id number] Durat ion Value: 15 Brand Name: clobetasol S end Method: E-Prescribed Subs Allowed: subs OK Special Instruction: APPLY TO THE AFFECTED AREA(S) SPARINGLY TWICE DAILY Medica tionGenericN soo: clobetasol Not Available Not Available Not Available clopidogrel 75 mg tablet 2018 active Medication ID: [id number] Durat ion Value: 30 Brand Name: clopidogrel Send Method: E-Prescribed Subs Allowed: subs OK Special Instruction: TAKE 1 TABLET EVERYDAY AT NOON [facility]: clopidogrel Not Available Not Available Not Available aspirin 81 mg tablet,delay ed release 2018 active Medication ID: [id number] Durat ion Value: 30 Brand Name: aspirin Send Method: E-Prescribed Subs Allowed: subs OK Special Instruction: TAKE 1 TABLET EVERY MORNING Medi cationGeneri cName: aspirin Not Available Not Available Not Available levothyroxin e 75 mcg tablet 2018 active Medication ID: [id number] Durat ion Value: 30 Brand Name: levothyroxin e Send Method: E-Prescribed Subs Allowed: subs OK Special Instruction: TAKE 1 TABLET EVERY MORNING Medi cationGeneri cName: levothyroxin e Not Available Not Available Not Available dicyclomine 20 mg tablet 2018 active Medication ID: [id number] Durat ion Value: 30 Brand Name: dicyclomine Send Method: E-Prescribed Subs Allowed: subs OK Special Instruction: TAKE 1 TABLET BY MOUTH 2-4 TIMES PER DAY Medicati onGenericNam e: dicyclomine Not Available Not Available Not Available verapamil ER (PM) 300 mg capsule 24hr pellet CT,ext.relea se 2018 active Medication ID: [id number] Durat ion Value: 30 Brand Name: verapamil Se nd Method: E-Prescribed Subs Allowed: subs OK Special Instruction: TAKE 1 CAPSULE EVERY DAY AT NOON [facility] me: verapamil Not Available Not Available Not Available nitroglyceri n 0.4 mg sublingual tablet 2018 active Medication ID: [id number] Durat ion Value: 8 Brand Name: nitroglyceri n Send Method: E-Prescribed Subs Allowed: subs OK Special Instruction: DISSOLVE 1 TABLET UNDER THE TONGUE EVERY 5 MINUTES NEEDED FOR CHEST PAIN. DO NOT EXCEED A TOTAL OF 3 DOSES IN 15 MINUTES. Med icationGener icName: nitroglyceri n Not Available Not Available Not Available docusate sodium 100 mg capsule 2018 active Medication ID: [id number] Durat ion Value: 30 Brand Name: docusate sodium Send Method: E-Prescribed Subs Allowed: subs OK Special Instruction: TAKE 1 CAPSULE TWICE DAILY IN THE MORNING AND IN THE EVENING Medi cationGeneri cName: docusate sodium Not Available Not Available Not Available montelukast 10 mg tablet 2018 active Medication ID: [id number] Durat ion Value: 30 Brand Name: montelukast Send Method: E-Prescribed Subs Allowed: subs OK Special Instruction: TAKE 1 TABLET BY MOUTH EVERY MORNING Medi cationGeneri cName: montelukast Not Available Not Available Not Available Proventil HFA 90 mcg/actuatio n aerosol inhaler 2018 active Medication ID: [id number] Durat ion Value: 18 Brand Name: Proventil HFA Send Method: E-Prescribed Subs Allowed: subs OK Special Instruction: INHALE 2 PUFFS BY MOUTH EVERY 4 TO 6 HOURS NEEDED Medic ationGeneric Name: Proventil HFA Not Available Not Available Not Available hydralazine 50 mg tablet 2018 active Medication ID: [id number] Durat ion Value: 30 Brand Name: hydralazine Send Method: E-Prescribed Subs Allowed: subs OK Special Instruction: TAKE 1 TABLET THREE TIMES DAILY IN THE MORNING, AT NOON, AND IN THE EV ENING may take extra dose if blood pressure is elevated Med icationGener icName: hydralazine Not Available Not Available Not Available furosemide 20 mg tablet 2018 active Medication ID: [id number] Durat ion Value: 30 Brand Name: furosemide S end Method: E-Prescribed Subs Allowed: subs OK Special Instruction: TAKE 1 TABLET EVERY MORNING [facility] cationGeneri cName: furosemide Not Available Not Available Not Available polyethylene glycol 3350 17 gram/dose oral powder 2018 active Medication ID: [id number] Durat ion Value: 30 Brand Name: polyethylene glycol 3350 Send Method: E-Prescribed Subs Allowed: subs OK Special Instruction: TAKE 17 GM MIXED IN 8 OUNCES OF WATER ONCE DAILY Medica tionGenericN soo: polyethylene glycol 3350 Not Available Not Available Not Available betamethason e dipropionate 0.05 % topical ointment 2018 active Medication ID: [id number] Durat ion Value: 15 Brand Name: betamethason e dipropionate Send Method: E-Prescribed Subs Allowed: subs OK Special Instruction: APPLY TO THE AFFECTED AREA(S) SPARINGLY TWICE DAILY Medica tionGenericN soo: betamethason e dipropionate Not Available Not Available Not Available losartan 100 mg tablet 2018 active Medication ID: [id number] Durat ion Value: 30 Brand Name: losartan Sen d Method: E-Prescribed Subs Allowed: subs OK Special Instruction: TAKE 1 TABLET EVERY DAY AT NOON Medicat ionGenericNa me: losartan Not Available Not Available Not Available fluticasone propionate 50 mcg/actuatio n nasal spray,suspen jenny 2018 active Medication ID: [id number] Durat ion Value: 30 Brand Name: fluticasone propionate S end Method: E-Prescribed Subs Allowed: subs OK Special Instruction: USE 2 SPRAYS IN EACH NOSTRIL EVERY DAY Medicati onGenericNam e: fluticasone propionate Not Available Not Available Not Available Mapap Arthritis Pain 650 mg tablet,exten ded release 2018 active Medication ID: [id number] Durat ion Value: 30 Brand Name: Mapap Arthritis Pain Send Method: E-Prescribed Subs Allowed: subs OK Special Instruction: TAKE 1 TABLET BY MOUTH EVERY 8 HOURS NEEDED Medic ationGeneric Name: Mapap Arthritis Pain Not Available Not Available Not Available rosuvastatin 40 mg tablet 2018 active Medication ID: [id number] Durat ion Value: 30 Brand Name: rosuvastatin Send Method: E-Prescribed Subs Allowed: subs OK Special Instruction: TAKE 1 TABLET EVERY EVENING Medi cationGeneri cName: rosuvastatin Not Available Not Available Not Available topiramate 50 mg tablet 2018 active Medication ID: [id number] Durat ion Value: 30 Brand Name: topiramate S end Method: E-Prescribed Subs Allowed: subs OK Special Instruction: TAKE 1 AND 1/2 TABLETS AT BEDTIME Medi cationGeneri cName: topiramate Not Available Not Available Not Available duloxetine 60 mg capsule,steffen yed release 2018 active Medication ID: [id number] Durat ion Value: 30 Brand Name: duloxetine S end Method: E-Prescribed Subs Allowed: subs OK Special Instruction: TAKE 1 CAPSULE BY MOUTH EVERY MORNING Medi cationGeneri cName: duloxetine Not Available Not Available Not Available Flovent HFA 220 mcg/actuatio n aerosol inhaler 2018 active Medication ID: [id number] Durat ion Value: 30 Brand Name: Flovent HFA Send Method: E-Prescribed Subs Allowed: subs OK Special Instruction: INHALE 2 PUFFS TWICE DAILY RINSE MOUTH AFTER USING. Medic ationGeneric Name: Flovent HFA Not Available Not Available Not Available Alaway 0.025 % (0.035 %) eye drops 2018 active Medication ID: [id number] Durat ion Value: 30 Brand Name: Castro Send Method: E-Prescribed Subs Allowed: subs OK Special Instruction: PLACE 1 DROPS IN EACH EYE TWICE DAILY FOR ITCHING Medi cationGeneri cName: Alaway Not Available Not Available Not Available Vitals Date Recorded Body height Body mass index (BMI) Body weight Provider Name and Address Organization Details Last Updated DateTime 08/30/2023 167.64 cm 37.4 kg/m2 915795.43 g Sangita Sharp [facility] 08/30/2023 12:06:43 Date Recorded Body height Body mass index (BMI) Body weight Provider Name and Address Organization Details Last Updated DateTime 11/03/2023 167.64 cm 37.4 kg/m2 893753.43 g Sangita Sharp [facility] 11/03/2023 10:33:41 Social History None recorded. [...] Note 1804 LAURIE HYDE MD [facility] [address] [address] 08/30/2023 10:23:58 08/30/2023 12:24:53 Sensorineural hearing loss of bilateral ears 916477048 H90.3 Mild-moder ate SNHL for both ears.Tympa nogram: Type A for both ears. Impacted c erumen in right ear [id number] 869363 H61.21 cerumen removed from right ear [id number] LAURIE HYDE MD [facility] [address] [address] 11/03/2023 10:31:27 11/03/2023 10:55:33 Dysphagia 90996303 R13.10 Health Concerns Section Related Observation LastModified by Organization Detai ls LastModified Time None Recorded Concern Status LastModified by Organization Details LastModified Time None Recorded Advance Directives Directive None Recorded Payers Insurance Date Sequence Insurance Name Policy Number Policy Sen Covered Member ID Sen Member ID Guarantor Name 05/21/2024 1 [place] [employer] (MEDICAID) Yuan Waters [id number] Yuan Waters Notes Date Note Type Note Provider Name and Address Organization Details Recorded Time 08/30/19 24 text/htm l ROS as noted in the HPI bhutanese - ipadprogressive hearing losslast test with our office 03/30/2020no previous trial of amplificationno sig noise exposure LAURIE HYDE MD [address] [place] [address], [address], [facility] - [facility] 08/30/2023 12:25:03 11/03/19 24 text/htm l ROS as noted in the HPI bhutanese - familydysphagiadifficulty swallow pillshead and neck turn to left side allows to cough pill outonset about 07/2023voice normalno hemoptysisno otalgia tobacco - 1/2ppd LAURIE HYDE MD [address] [place] [address],[place] [address], [place], [address], [facility] 11/03/2023 10:54:25 OBGyn Episode No OBEpisode recorded.
--- NOTE | 2025-03-17 04:35 | ED.GENADULT ---
HPI - General Adult General Chief complaint: General Medical Stated complaint: High BP Time Seen by Provider: 03/17/25 04:29 Source: patient Limitations: language barrier History of Present Illness ED Provider: Kaylee Worthington PA-C HPI narrative: 64-year-old female with a history of hypertension, diabetes, hyperlipidemia, asthma/COPD, hypothyroidism, who presents with concern for hypertension. Patient states she noted her blood pressure to be 141 systolic at home. Denies chest pain, shortness of breath, diaphoresis, nausea vomiting. Patient states her blood pressure was low today. Over the past week she has been dizzy with a headache. She states there was an error at the pharmacy, she was taking double doses of hydralazine. Today was the 1st day that she took the appropriate dose of hydralazine, then had elevated blood pressure. Related Data Home Medications ?Medication ?Instructions ?Recorded ?Confirmed aspirin 81 mg tablet,delayed 81 mg PO DAILY 04/08/20 02/11/25 release irmitewslz-bmqeyblorwwdj-tbdoytda 1 cap PO Q4-6H PRN Migraine 04/08/20 02/11/25 50 mg-325 mg-40 mg capsule Headache cyclobenzaprine 10 mg tablet 10 mg PO TID 04/08/20 02/11/25 docusate sodium 100 mg capsule 100 mg PO BID 04/08/20 02/11/25 fluticasone propionate 50 1 spray intranasal DAILY 04/08/20 02/11/25 mcg/actuation nasal spray,suspension (Flonase Allergy Relief) hydralazine 50 mg tablet 50 mg PO TID 04/08/20 02/11/25 levothyroxine 75 mcg tablet 75 mcg PO DAILY 04/08/20 02/11/25 (Synthroid) losartan 100 mg tablet 100 mg PO DAILY 04/08/20 02/11/25 metoprolol succinate 100 mg 100 mg PO DAILY 04/08/20 02/11/25 tablet,extended release 24 hr montelukast 10 mg tablet 10 mg PO BEDTIME 04/08/20 02/11/25 (Singulair) nitroglycerin 0.4 mg sublingual 0.4 mg sublingual Q5M PRN Chest 04/08/20 02/11/25 tablet (Nitrostat) Pain polyethylene glycol 3350 17 gram 17 g PO DAILY 04/08/20 02/11/25 oral powder packet (Miralax) rosuvastatin 40 mg tablet (Crestor) 40 mg PO DAILY 04/08/20 02/11/25 topiramate 50 mg tablet 50 mg PO BID 04/08/20 02/11/25 verapamil 300 mg capsule 24hr 300 mg PO BEDTIME 04/08/20 02/11/[address],ext.release furosemide 20 mg tablet 20 mg PO BID 02/09/21 02/11/25 dicyclomine 20 mg tablet 20 mg PO BID 08/27/21 02/11/25 famotidine 40 mg tablet 40 mg PO DAILY 08/27/21 02/11/25 metformin 500 mg tablet,extended 1,000 mg PO BID 08/27/21 02/11/25 release 24 hr dulaglutide 0.75 mg/0.5 mL 0.75 mg subcut QWEEK 09/22/21 02/11/25 subcutaneous [facility]) hydrocortisone 2.5 % topical cream 1 appl topical BID 03/11/22 02/11/25 with perineal applicator (Procto-Med ) ipratropium 0.5 mg-albuterol 3 mg ml inhalation QID PRN wheezing 02/11/25 02/11/25 (2.5 mg base)/3 mL nebulization soln Previous Rx's ?Medication ?Instructions ?Recorded acetaminophen 650 mg 650 mg PO Q8H PRN pain #90 tabs 07/14/20 tablet,extended release (Mapap Arthritis Pain) duloxetine 60 mg capsule,delayed 60 mg PO QAM #30 caps 06/02/21 release Walker with seat #1 ea 01/04/24 celecoxib 200 mg capsule 200 mg PO BID #60 caps 05/29/24 albuterol sulfate 90 mcg/actuation 2 puff inhalation Q4-6H PRN 11/20/24 aerosol inhaler (Ventolin HFA) shortness of breath or wheezing #6.7 grams fluticasone propionate 115 2 puff PO BID #12 grams 12/23/24 mcg-salmeterol 21 mcg/actuation HFA inhaler (Advair HFA) ketorolac 10 mg tablet 10 mg PO Q6H PRN pain #20 tabs 02/02/25 methocarbamol 750 mg tablet 750 mg PO Q8H PRN pain, moderate 02/02/25 #15 tabs Allergies Allergy/AdvReac Type Severity Reaction Status Date / Time codeine (CODEINE) Allergy Intermediate LOWERED Verified 03/17/25 03:31 PLATELETS atorvastatin Allergy Mild Headache Verified 03/17/25 03:31 amlodipine Allergy Unknown Unknown Verified 03/17/25 03:31 clonidine Allergy Unknown Unknown Verified 03/17/25 03:31 shellfish derived (shellfish) Allergy Unknown Unknown Verified 03/17/25 03:31 pseudoephedrine (From Allergy Unknown Verified 03/17/25 03:31 Sudafed) Review of Systems Review of Systems: Yes all other systems are reviewed and are negative Constitutional: Constitutional: Denies fatigue, Denies fever(s) and Reports headache(s) ENT: Reports dizziness and Reports headache(s) Cardiovascular: Cardiovascular: Denies chest pain, Reports palpitations and Denies dyspnea Respiratory: Respiratory: Denies dyspnea Gastrointestinal: Gastrointestinal: Denies abdominal pain, Denies nausea and Denies vomiting Neurologic: Reports dizziness and Reports headache(s) Endocrine: Endocrine: Denies fatigue and Reports palpitations PMFSH Past Medical History Attestation statement: The following information was validated with the patient. Medical History History of myocardial infarction Nicotine dependence, cigarettes, uncomplicated Asthma with COPD Cough Breast calcification, left Obesity (BMI 30-39.9) Breast mass, right Venous insufficiency Elevated cholesterol CAD (coronary artery disease) GERD (gastroesophageal reflux disease) Arthritis Hypothyroid HTN (hypertension) Asthma Allergic rhinitis JORGE on CPAP Surgical History History of esophagogastroduodenoscopy (EGD) Hx of arthroscopic knee surgery History of total right knee replacement (10/19/17) H/O colonoscopy Family History Family History Father Prostate cancer Diabetes Alzheimer dementia HTN (hypertension) Mother Aneurysm Daughter Diabetes Social History Social History Household Members: None Housing: House Alcohol intake: former Patient Tobacco Use Status: Current everyday Tobacco user Tobacco use type: Cigarette Cigarette Packs Per Day: 0.5 Cigarettes Per Day: 3 Years Smoked: (onset 15yo, x 48yrs, max 2ppd - now 1/2-3/4ppd - 50pyh) Advance Directives: No Advance Directives Information Provided: No Do you have a plan to hurt others: No Plan Current occupational status: disabled 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 Sexual orientation: Straight/Heterosexual Gender identity: Female Physical Exam ED Vital Signs: Vital Signs - 24 hr 03/17/25 03:28 03/17/25 05:35 03/17/25 05:37 Temperature 97.9 F 97.8 F 97.8 F Pulse Rate 73 75 75 Respiratory Rate 16 16 16 Blood Pressure 125/64 116/70 116/70 Pulse Oximetry 97 96 96 Oxygen Delivery Method Room Air Room Air Room Air BMI result Body Mass Index 36.2 Const Other: Alert well-appearing Orientation/consciousness: patient oriented x3 Resp Effort & Inspection: normal respiratory effort Cardio Other: Normal Peripheral perfusion Skin Other: Warm dry no rash Neuro General: patient oriented x3, gait normal, no focal motor deficits and CN's II-XI intact bilaterally Psych Other: Cooperative Medical Decision Making Medical Decision Making MDM Narrative: 64-year-old female with a history of anxiety, hypertension, diabetes, hyperlipidemia, asthma/COPD, hypothyroidism, who presents with concern for hypertension. Patient states she noted her blood pressure to be 141 systolic at home. Denies chest pain, shortness of breath, diaphoresis, nausea vomiting. Patient states her blood pressure was low today. Over the past week she has been dizzy with a headache. She states there was an error at the pharmacy, she was taking double doses of hydralazine. Today was the 1st day that she took the appropriate dose of hydralazine, then had elevated blood pressure. Problem: Hypertension, diabetes History: Per patient I have considered the following differential diagnoses: Hypertensive urgency, hypertensive emergency, end-organ damage, ACS, an accurate blood pressure machine at home Plan: The patient's vitals are completely normal. She is asymptomatic. I do truly believe her blood pressure machine is likely an accurate at home. She does have anxiety, which I also think is contributory and could be driving inaccurate pressures. There was no evidence of hypertensive urgency or emergency. There was no indication to look for evidence of end-organ damage. I have advised at length she needs to follow up with primary care and to take her medication as directed. Differential Diagnosis Differential Diagnoses: The differential diagnosis associated with the presentation includes See MDM Admission/Observation Consideration of admission/observation: Escalation of care including admission/observation considered Not applicable Discharge Plan Discharge Clinical Impression: Hypertension Qualifiers: Hypertension type: primary hypertension Qualified Code(s): I10 - Essential (primary) hypertension Patient Disposition: Home, Self-Care Instructions: Chronic Hypertension (ED) Additional Instructions: Your blood pressure is not elevated here in the emergency room. The value that you were reporting you had at home, is also not worrisome. Blood pressure can fluctuate throughout the day. There are numerous factors that can transiently elevate your blood pressure such as anxiety, stress, pain, illness, emotional stress. Continue to follow up with your primary care provider and take your medications as directed. Prescriptions: No Action acetaminophen [Mapap Arthritis Pain] 650 mg tablet extended release 650 mg PO Q8H PRN (Reason: pain) Qty: 90 3RF duloxetine 60 mg capsule,delayed release(DR/EC) 60 mg PO QAM Qty: 30 0RF (DME) Walker with seat See Rx Instructions .Route .MEDSUPPLY Qty: 1 0RF Rx Instructions: As directed fluticasone propion-salmeterol [Advair HFA] 115-21 mcg/actuation HFA aerosol inhaler 2 puff PO BID Qty: 12 0RF methocarbamol 750 mg tablet 750 mg PO Q8H PRN (Reason: pain, moderate) Qty: 15 0RF ketorolac 10 mg tablet 10 mg PO Q6H PRN (Reason: pain) Qty: 20 0RF Rx Instructions: maximum total duration of 5 days from all oral, intranasal, or parenteral formulations. The patient received an intramuscular dose of Toradol here in the emergency room albuterol sulfate [Ventolin HFA] 90 mcg/actuation HFA aerosol inhaler 2 puff inhalation Q4-6H PRN (Reason: shortness of breath or wheezing) Qty: 6.7 0RF aspirin 81 mg tablet,delayed release (DR/EC) 81 mg PO DAILY hydralazine 50 mg tablet 50 mg PO TID losartan 100 mg tablet 100 mg PO DAILY verapamil 300 mg capsule, [address] 300 mg PO BEDTIME jyfkftcdwv-rnyvvtcpyxldh-jjte 50-325-40 mg capsule 1 cap PO Q4-6H PRN (Reason: Migraine Headache) rosuvastatin [Crestor] 40 mg tablet 40 mg PO DAILY fluticasone propionate [Flonase Allergy Relief] 50 mcg/actuation spray,suspension 1 spray intranasal DAILY Rx Instructions: administer into each nostril polyethylene glycol 3350 [Miralax] 17 gram powder in packet 17 g PO DAILY nitroglycerin [Nitrostat] 0.4 mg tablet, sublingual 0.4 mg sublingual Q5M PRN (Reason: Chest Pain) Rx Instructions: do not exceed 3 doses per episode levothyroxine [Synthroid] 75 mcg tablet 75 mcg PO DAILY docusate sodium 100 mg capsule 100 mg PO BID topiramate 50 mg tablet 50 mg PO BID metoprolol succinate 100 mg tablet extended release 24 hr 100 mg PO DAILY montelukast [Singulair] 10 mg tablet 10 mg PO BEDTIME cyclobenzaprine 10 mg tablet 10 mg PO TID furosemide 20 mg tablet 20 mg PO BID dicyclomine 20 mg tablet 20 mg PO BID famotidine 40 mg tablet 40 mg PO DAILY metformin 500 mg tablet extended release 24 hr 1,000 mg PO BID hydrocortisone [Procto-Med HC] 2.5 % cream with perineal applicator 1 appl topical BID Trulicity 0.75 mg/0.5 mL pen injector 0.75 mg subcut QWEEK Rx Instructions: takes on celecoxib 200 mg capsule 200 mg PO BID Qty: 60 3RF ipratropium-albuterol 0.5 mg-3 mg(2.5 mg base)/3 mL solution for nebulization inhalation QID PRN (Reason: wheezing) Stand Alone Forms: Work/School Release Interventions: ED Discharge Assessment Last Done: 03/17/25 05:37 Discharge Date/Time: 03/17/25 05:38 Print Language: Fijian
[2025-03-17 05:35] VITALS: BP 116/70; PULSE 75; RESP 16; TEMP 36.6; O2SAT 96
[2025-03-17 05:37] VITALS: BP 116/70; PULSE 75; RESP 16; TEMP 36.6; O2SAT 96
== END 2025-03-17 05:38 | disposition home or self-care (01) ==
PROVIDERS: Emergency Provider Emergency Medicine
DX: R42 Dizziness and giddiness (principal); R51.9 Headache, unspecified; I10 Essential (primary) hypertension; E11.9 Type 2 diabetes mellitus without complications; E78.5 Hyperlipidemia, unspecified; J45.909 Unspecified asthma, uncomplicated; J44.9 Chronic obstructive pulmonary disease, unspecified; Z79.899 Other long term (current) drug therapy; F17.200 Nicotine dependence, unspecified, uncomplicated; Z71.6 Tobacco abuse counseling
CPT/HCPCS: 99283